=== PATIENT | female | born 1970 | race Caucasian/White ===

== ENCOUNTER 2017-02-09 09:51 | Inpatient (IN) | payer OTHER ==
[2017-02-09 11:35] VITALS: BMI 33.6
--- NOTE | 2017-02-09 12:32 | HP ---
COWS - Scale Resting Pulse: 1= MO 81-100 Sweatin=Flushed/Facial Moisture Restless Observation: 3= Extraneous Movement Pupil Size: 1= Pupils >than Normal Bone or Joint Aches: 2= Severe Diffuse Aches Runny Nose/ Eye Tearin= Runny Nose/Eyes GI Upset > 30mins: 3= Vomiting/Diarrhea Tremor Observation: 2= Slight Tremor Visible Yawning Observation: 1= 1-2x During Session Anxiety or Irritability: 2=Irritable/Anxious Goose Flesh Skin: 0=Smooth Skin COWS Score: 19 Admission ROS S - HPI Chief Complaint: i need help to stop using heroin,marijuana Allergies/Adverse Reactions: Allergies Allergy/AdvReac Type Severity Reaction Status Date / Time No Known Allergies Allergy Verified 02/09/17 12:09 History of Present Illness: this 46 years old female with heroin and marijuana dependence withdrawal symptom ,last detox dependence,[facility] 09/14 several admissions in detox patient was treated with doxycycline 100 mgs po bid seen in [facility] on sat 02/07/17 longest period of sobriety 7 years nicotine dependence bipolar disorder Exam Limitations: No Limitations - Ebola screening Have you traveled outside of the country in the last 21 days: No Have you been sick,other than usual withdrawal symptoms: No - Review of Systems Constitutional: Chills, Loss of Appetite, Malaise, Night Sweats, Changes in sleep, Weakness EENT: reports: Tearing, Nose Congestion Respiratory: reports: No Symptoms reported, Other (asthma) Cardiac: reports: No Symptoms Reported GI: reports: Diarrhea, Nausea, Vomiting, Abdominal cramping : reports: No Symptoms Reported, Other (treated with doxycycline 100 mga po bid for pid at [facility]) Musculoskeletal: reports: Back Pain, Joint Pain, Muscle Pain, Joint Stiffness Integumentary: reports: Dryness Neuro: reports: Headache, Tremors Endocrine: reports: No Symptoms Reported Hematology: reports: No Symptoms Reported Psychiatric: reports: other (bipolar disorder) Patient History - Patient Medical History Hx Anemia: Yes (no med) Hx Asthma: Yes (on albuterol and advair) Hx Chronic Obstructive Pulmonary Disease (COPD): No Hx Cancer: Yes (cervical ca follow up with own sound assistant) Hx Cardiac Disorders: No Hx Congestive Heart Failure: No Hx Hypertension: No Hx Hypercholesterolemia: No Hx Pacemaker: No HX Cerebrovascular Accident: No Hx Seizures: No Hx Dementia: No Hx Diabetes: No Hx Gastrointestinal Disorders: Yes (Hx of GERD) Hx Liver Disease: No Hx Genitourinary Disorders: No Hx Sexually Transmitted Disorders: No Hx Renal Disease (ESRD): No Hx Thyroid Disease: No Hx Human Immunodeficiency Virus (HIV): No (NEGATIVE HX last 2016) Hx Hepatitis C: No Hx Depression: Yes (on medication) Hx Suicide Attempt: No Hx Bipolar Disorder: Yes Hx Schizophrenia: No Other Medical History: no suicidal,no homicidal,treated with antibiotic for pid - Patient Surgical History Past Surgical History: Yes Hx Neurologic Surgery: No Hx Cataract Extraction: No Hx Cardiac Surgery: No Hx Lung Surgery: No Hx Breast Surgery: No Hx Breast Biopsy: No Hx Abdominal Surgery: No Hx Appendectomy: No Hx Cholecystectomy: Yes ( 2009 lap ) Hx Genitourinary Surgery: Yes (2001) Hx Section: No Hx Orthopedic Surgery: No Other Surgical History: Pt had a culposcopy. Anesthesia Reaction: No - PPD History Previous Implant?: Yes Documented Results: Negative w/proof Implanted On Prior [facility] Admission?: Yes Date: 05/12/16 Results: 0 MM PPD to be Administered?: No - Reproductive History Patient is a Female of Child Bearing Age (11 -55 yrs old): Yes Last Menstrual Period: 01/20/17 Patient : No - Smoking Cessation Smoking history: Current every day smoker Have you smoked in the past 12 months: Yes Aproximately how many cigarettes per day: 12 Cigars Per Day: 0 Hx Chewing Tobacco Use: No Initiated information on smoking cessation: Yes 'Breaking Loose' booklet given: 02/09/17 - Substance & Tx. History Hx Alcohol Use: No Hx Substance Use: Yes Substance Use Type: Heroin, Marijuana Hx Substance Use Treatment: Yes ([facility] 09/14) - Substances Abused Heroin Route: Inhalation Frequency: Daily Amount used: 3 BAGS Age of first use: 28 Date of Last Use: 02/09/17 Marijuana/Hashish Route: Smoking Frequency: Daily Amount used: 1/2 BAG Age of first use: 13 Date of Last Use: 02/08/17 SUBOXONE Route: Oral Frequency: 3-6 times per week Amount used: 2- 8/2MG Age of first use: 45 Date of Last Use: 02/08/17 Family Disease History - Family Disease History Family Disease History: Heart Disease: Grandparent, Other: Father ( - alcohol), Mother (arthritis) Admission Physical Exam [facility] - Vital Signs Vital Signs: Vital Signs - 24 hr 02/09/17 11:27 Temperature 96.0 F L Pulse Rate 86 Respiratory 20 Rate Blood Pressure 118/81 - Physical General Appearance: Yes: Moderate Distress, Tremorous, Irritable, Sweating, Anxious HEENTM: Yes: Normal ENT Inspection, Normocephalic, Nasal Congestion Respiratory: Yes: Lungs Clear, Normal Breath Sounds, No Respiratory Distress Neck: Yes: Within Normal Limits Breast: Yes: Breast Exam Deferred Cardiology: Yes: Within Normal Limits, Regular Rhythm, Regular Rate, S1, S2 Abdominal: Yes: Within Normal Limits, Non Tender, Flat, Soft Genitourinary: Yes: Within Normal Limits Back: Yes: Muscle Spasm Musculoskeletal: Yes: Back pain, Joint Stiffness, Muscle Pain Extremities: Yes: Tremors Neurological: Yes: product development chemist II-XII NML intact, Fully Oriented, Alert, Motor Strength 5/5 Integumentary: Yes: Dry Lymphatic: Yes: Within Normal Limits - Diagnostic (1) Asthma Current Visit: No Status: Chronic Qualifiers: Asthma severity: mild intermittent Asthma complication type: uncomplicated Qualified Code(s): J45.20 - Mild intermittent asthma, uncomplicated (2) Cannabis dependence Current Visit: No Status: Chronic (3) GERD (gastroesophageal reflux disease) Current Visit: No Status: Chronic Qualifiers: Esophagitis presence: esophagitis presence not specified Qualified Code(s): K21.9 - Gastro-esophageal reflux disease without esophagitis (4) Nicotine dependence Current Visit: No Status: Chronic Qualifiers: Nicotine product type: cigarettes Substance use status: uncomplicated Qualified Code(s): F17.210 - Nicotine dependence, cigarettes, uncomplicated (5) Opioid dependence with withdrawal Current Visit: No Status: Chronic (6) Bipolar disorder Current Visit: No Status: Suspected (7) History of anemia Current Visit: No Status: Suspected (8) Cervical cancer Current Visit: Yes Status: Acute (9) Arthritis Current Visit: Yes Status: Acute Cleared for Admission [facility] - Detox or Rehab [facility] Level of Care: Medically Managed Detox Regimen/Protocol: Methadone [facility] Breath Alcohol Content Breath Alcohol Content: 0 Urine Pregancy Test - Result Urine Test Results: Negative- NO Line Present Urine Drug Screen - Results Drug Screen Negative: No Urine Drug Screen Results: THC-Marijuana, OPI-Opiates, TCA-Tricyclic Antidepress
[2017-02-09] MEDS ORDERED: guaiFENesin/D-METHORPHAN HB 10 ML UNIT-DOSE CUPS PO PRN (12:57)
[2017-02-09] MEDS ORDERED: P-EPHED 60MG/TRIPROLIDI 2.5MG TABLET PO PRN (12:57)
[2017-02-09] MEDS ORDERED: hydrOXYzine PAMOATE 50 MG CAPSULE (FP) PO PRN (12:57)
[2017-02-09] MEDS ORDERED: MAGNESIUM HYDROX 2400MG/30ML ORAL SUSPENSION 30 ML CUP PO PRN (12:57)
[2017-02-09] MEDS ORDERED: MENTHOL/PHENOL 1 EACH UD MM PRN (12:57)
[2017-02-09] MEDS ORDERED: LOPERAMIDE HCL 2 MG CAPSULE PO PRN (12:57)
[2017-02-09] MEDS ORDERED: MAGNESIUM CITRATE 300 ML BOTTLE PO PRN (12:57)
[2017-02-09] MEDS ORDERED: ACETAMINOPHEN 325 MG TABLET (FP) PO PRN (12:57)
[2017-02-09] MEDS ORDERED: ALBUTEROL SO4 6.7 GM HFA INHALER IH PRN (13:03)
[2017-02-09] MEDS ORDERED: METHADONE HCL 10 MG TABLET (FOR DETOX USE ONLY) PO ONE ×2 (14:00→23:00)
[2017-02-09] MEDS: NICOTINE 21 MG/24 HOURS TOPICAL PATCH TD SCH (14:11)
[2017-02-09] MEDS: diazePAM 5 MG TABLET PO PRN ×2 (14:11→22:25)
[2017-02-09] MEDS: IBUPROFEN 400 MG TABLET (FP) PO PRN (14:11)
[2017-02-09] MEDS: PANTOPRAZOLE 40 MG TABLET (FP) PO SCH (14:13)
--- NOTE | 2017-02-09 15:56 | EKG ---
Test Reason : Blood Pressure : / mmHG Vent. Rate : 075 BPM Atrial Rate : 075 BPM P-R Int : 140 ms QRS Dur : 088 ms QT Int : 400 ms P-R-T Axes : 054 042 027 degrees QTc Int : 446 ms NORMAL SINUS RHYTHM NORMAL ECG NO PREVIOUS ECGS AVAILABLE Confirmed by JOSE ANGEL ELLIOTT MD ([id number]) on 02/09/2017 3:55:43 PM Referred By: Confirmed By:JOSE ANGEL ELLIOTT MD
[2017-02-09 18:07] LABS: URINE APPEARANCE CLEAR; URINE BILIRUBIN NEGATIVE (NEGATIVE); URINE BLOOD NEGATIVE (NEGATIVE); URINE COLOR LTYELLOW; URINE GLUCOSE (UA) NEGATIVE (NEGATIVE); URINE KETONE NEGATIVE (NEGATIVE); URINE NITRITE NEGATIVE (NEGATIVE); URINE PROTEIN NEGATIVE (NEGATIVE); URINE UROBILINOGEN NEGATIVE E.U./dl (0.2-1.0)
[2017-02-09 18:15] LABS: URINE LEUK ESTERASE 2+ (NEGATIVE)
[2017-02-09 18:16] LABS: ALBUMIN 3.4 g/dl (3.4-5.0); ANION GAP 8 (8-16); CALCIUM 9.3 mg/dL (8.5-10.1); CO2 30 mmol/L (21-32); GLUCOSE,RANDOM 127 mg/dL (74-106)
[2017-02-09 18:17] LABS: URINE RBC 3 /hpf (0-3); URINE WBC 25 /hpf (3-5)
[2017-02-09 18:21] LABS: ALK PHOS 143 U/L (45-117); BILIRUBIN,TOTAL 0.3 mg/dL (0.2-1.0); CREATININE 0.8 mg/dL (0.55-1.02); SGOT/AST 16 U/L (15-37); SGPT/ALT 19 U/L (12-78); TOT PROT 7.3 g/dl (6.4-8.2)
[2017-02-09 18:26] LABS: MCH 29.3 pg (25.7-33.7); MCHC 33.8 g/dl (32.0-36.0); MEAN CELL VOLUME 86.6 fl (80-96); MEAN PLT VOLUME 8.7 fl (7.5-11.1); PLATELET COUNT 330 K/MM3 (134-434); RDW 13.6 % (11.6-15.6); WHITE BLOOD COUNT 10.4 K/mm3 (4.0-10.0)
[2017-02-09] MEDS: DOXYCYCLINE HYCLATE 100 MG TABLET PO SCH (19:51)
[2017-02-09] MEDS: MAG HYDROX/AL HYDROX/SIMETH 30 ML UNIT-DOSE CUP PO PRN (19:53)
[2017-02-09] MEDS: BUDESONIDE/FORMETEROL FUMARATE 160/4.5 mcg INHALER IH SCH (22:25)
[2017-02-09] MEDS: THIAMINE HCL 100 MG TABLET (FP) PO SCH (22:25)
[2017-02-09] MEDS: diphenhydrAMINE HCL 50 MG CAPSULE PO PRN (22:25)
[2017-02-10] MEDS: DOXYCYCLINE HYCLATE 100 MG TABLET PO SCH ×2 (05:29→18:15)
[2017-02-10] MEDS: IBUPROFEN 400 MG TABLET (FP) PO PRN ×2 (05:29→22:31)
[2017-02-10] MEDS ORDERED: METHADONE HCL 10 MG TABLET (FOR DETOX USE ONLY) PO ONE (10:00)
--- NOTE | 2017-02-10 10:21 | PN ---
[facility] COWS - Scale Resting Pulse: 1= ID 81-100 Sweatin=Flushed/Facial Moisture Restless Observation: 1= Difficult to Sit Still Pupil Size: 1= Pupils >than Normal Bone or Joint Aches: 2= Severe Diffuse Aches Runny Nose/ Eye Tearin= Nasal Congestion GI Upset > 30mins: 1= Stomach Cramp Tremor Observation of Outstretched Hands: 1= Tremor [place], Not Seen Yawning Observation: 0= None Anxiety or Irritability: 2=Irritable/Anxious Goose Flesh Skin: 0=Smooth Skin COWS Score: 12 S Progress Note (SOAP) Subjective: interrupted sleep, sweats, lbp Objective: 02/10/17 10:18 Vital Signs Temperature 98.2 F 02/10/17 06:07 Pulse Rate 87 02/10/17 06:07 Respiratory Rate 18 02/10/17 06:07 Blood Pressure 128/91 02/10/17 06:07 O2 Sat by Pulse Oximetry (%) Laboratory Tests 02/09/17 02/09/17 02/09/17 13:20 13:20 13:20 WBC 10.4 H D RBC 4.01 Hgb 11.8 Hct 34.8 MCV 86.6 MCHC 33.8 RDW 13.6 Plt Count 330 MPV 8.7 D Sodium 138 Potassium 4.6 Chloride 100 Carbon Dioxide 30 Anion Gap 8 BUN 15 Creatinine 0.8 Creat Clearance w eGFR > 60 Random Glucose 127 H D Calcium 9.3 Total Bilirubin 0.3 D AST 16 D ALT 19 D Alkaline Phosphatase 143 H D Total Protein 7.3 Albumin 3.4 Urine Color Urine Appearance Urine pH Ur Specific [place] Urine Protein Urine Glucose (UA) Urine Ketones Urine Blood Urine Nitrite Urine Bilirubin Urine Urobilinogen Ur Leukocyte Esterase Urine RBC Urine WBC Ur Epithelial Cells Hepatitis C Antibody >11.0 H 02/09/17 15:00 WBC RBC Hgb Hct MCV MCHC RDW Plt Count MPV Sodium Potassium Chloride Carbon Dioxide Anion Gap BUN Creatinine Creat Clearance w eGFR Random Glucose Calcium Total Bilirubin AST ALT Alkaline Phosphatase Total Protein Albumin Urine Color Ltyellow Urine Appearance Clear Urine pH 6.0 Ur Specific [place] 1.015 Urine Protein Negative Urine Glucose (UA) Negative Urine Ketones Negative Urine Blood Negative Urine Nitrite Negative Urine Bilirubin Negative Urine Urobilinogen Negative Ur Leukocyte Esterase 2+ H Urine RBC 3 Urine WBC 25 Ur Epithelial Cells Few Hepatitis C Antibody pt aox3 in nad ambulating 02/10/17 10:19 Assessment: 02/10/17 10:18 withdrawal sx's lbp elevated glucose 02/10/17 10:21 Plan: cont. detox increase fluids flexeril 10mg tid /prn hep c bgm in am x 2 d
[2017-02-10] MEDS: NICOTINE 21 MG/24 HOURS TOPICAL PATCH TD SCH (10:52)
[2017-02-10] MEDS: LIDOCAINE 5% TOPICAL PATCH TP SCH (10:52)
[2017-02-10] MEDS: PANTOPRAZOLE 40 MG TABLET (FP) PO SCH (10:53)
[2017-02-10] MEDS: PRENATAL VITAMINS W/ FOLIC ACID TABLET (FP) PO SCH (10:53)
[2017-02-10] MEDS: diazePAM 5 MG TABLET PO PRN ×3 (10:56→22:32)
[2017-02-10] MEDS: BUDESONIDE/FORMETEROL FUMARATE 160/4.5 mcg INHALER IH SCH ×2 (10:57→23:29)
[2017-02-10] MEDS: MAG HYDROX/AL HYDROX/SIMETH 30 ML UNIT-DOSE CUP PO PRN (20:59)
--- NOTE | 2017-02-10 21:24 | CONSULT ---
[facility] Psychiatric Consult - Data Date of interview: 02/10/17 Admission source: [facility] Identifying data: Another admission to [facility] for this 46 y/o female seeking detox treatment on for heroin,marijuana and cocaine dependence.Patient is single,a mother of six (two sons and four daughters), domiciled,unemployed and deprived of any source of income. Substance Abuse History: - Smoking Cessation. Smoking history: Current every day smoker. Have you smoked in the past 12 months: Yes. Aproximately how many cigarettes per day: 12. Cigars Per Day: 0. Hx Chewing Tobacco Use: No. Initiated information on smoking cessation: Yes. 'Breaking Loose' booklet given : 02/09/17. - Substance & Tx. History. Hx Alcohol Use: No. Hx Substance Use: Yes. Substance Use Type: Heroin, Marijuana. Hx Substance Use Treatment: Yes ( [facility] 09/14). - Substances Abused. Heroin. Route: Inhalation. Frequency: Daily. Amount used: 3 BAGS. Age of first use: 28. Date of Last Use: . Marijuana/Hashish. Route: Smoking. Frequency: Daily. Amount used: 1/ 2 BAG. Age of first use: 13. Date of Last Use: 02/08/17. SUBOXONE. Route : Oral. Frequency: 3-6 times per week. Amount used: 2- 8/2MG. Age of first use: 45. Date of Last Use: 02/08/17. Confirmed by patient. Medical History: Bronchial asthma,GERD,LBP,sciatica and anemia. Psychiatric History: No history of psychiatric hospitalizations.Currently on suboxone maintenance.Ms Tolbert requests seroquel 50 mg po bid (prescribed by primary care doctor).Patient denies history of suicide attempts. Physical/Sexual Abuse/Trauma History: Patient denies. Additional Comment: Urine Drug Screen Results: THC-Marijuana, OPI-Opiates, TCA- Tricyclic Antidepressant.Noted. Mental Status Exam - Mental Status Exam Alert and Oriented to: Time, Place, Person Cognitive Function: Good Patient Appearance: Well Groomed Mood: Hopeful, Euthymic Affect: Appropriate, Normal Range Patient Behavior: Fatigued, Appropriate, Cooperative Speech Pattern: Clear, Appropriate Voice Loudness: Normal Thought Process: Goal Oriented Thought Disorder: Not Present Hallucinations: Denies Suicidal Ideation: Denies Homicidal Ideation: Denies Insight/Judgement: Fair Sleep: Poorly, Difficulty falling asleep Appetite: Good Muscle strength/Tone: Normal Gait/Station: Normal Psychiatric Findings - Problem List ([place] 1, 2,3) (1) Opioid dependence with withdrawal Current Visit: Yes Status: Acute (2) Nicotine dependence Current Visit: Yes Status: Acute Qualifiers: Nicotine product type: cigarettes Substance use status: uncomplicated Qualified Code(s): F17.210 - Nicotine dependence, cigarettes, uncomplicated (3) Cannabis dependence Current Visit: Yes Status: Acute (4) Bipolar disorder Current Visit: Yes Status: Chronic (5) Substance induced mood disorder Current Visit: Yes Status: Acute (6) Arthritis Current Visit: Yes Status: Chronic (7) Asthma Current Visit: Yes Status: Chronic Qualifiers: Asthma severity: mild intermittent Asthma complication type: uncomplicated Qualified Code(s): J45.20 - Mild intermittent asthma, uncomplicated (8) GERD (gastroesophageal reflux disease) Current Visit: Yes Status: Chronic Qualifiers: Esophagitis presence: esophagitis presence not specified Qualified Code(s): K21.9 - Gastro-esophageal reflux disease without esophagitis (9) History of anemia Current Visit: Yes Status: Suspected - Initial Treatment Plan Initial Treatment Plan: Psychoeducation.Detoxification.Seroquel 50 mg po bid.Side effects/benefits discussed with patient.Agreement given.Observation.
[2017-02-10] MEDS: THIAMINE HCL 100 MG TABLET (FP) PO SCH (22:27)
[2017-02-10] MEDS: diphenhydrAMINE HCL 50 MG CAPSULE PO PRN (22:29)
[2017-02-10] MEDS: QUEtiapine FUMARATE 50 MG TABLET PO SCH (22:29)
[2017-02-11] MEDS: DOXYCYCLINE HYCLATE 100 MG TABLET PO SCH ×2 (05:27→17:19)
[2017-02-11] MEDS: IBUPROFEN 400 MG TABLET (FP) PO PRN (05:29)
[2017-02-11] MEDS: diazePAM 5 MG TABLET PO PRN ×4 (05:31→22:32)
[2017-02-11] MEDS ORDERED: METHADONE HCL 5 MG TABLET (FOR DETOX USE ONLY) PO ONE (10:00)
[2017-02-11] MEDS: PRENATAL VITAMINS W/ FOLIC ACID TABLET (FP) PO SCH (10:30)
[2017-02-11] MEDS: PANTOPRAZOLE 40 MG TABLET (FP) PO SCH (10:31)
[2017-02-11] MEDS: QUEtiapine FUMARATE 50 MG TABLET PO SCH ×2 (10:31→22:31)
[2017-02-11] MEDS: BUDESONIDE/FORMETEROL FUMARATE 160/4.5 mcg INHALER IH SCH ×2 (10:31→22:31)
[2017-02-11] MEDS: NICOTINE 21 MG/24 HOURS TOPICAL PATCH TD SCH (10:36)
[2017-02-11] MEDS: LIDOCAINE 5% TOPICAL PATCH TP SCH (10:38)
--- NOTE | 2017-02-11 10:58 | PN ---
[facility] COWS - Scale Resting Pulse: 1= SC 81-100 Sweatin=Flushed/Facial Moisture Restless Observation: 0= Sits Still Pupil Size: 0= Normal to Room Light Bone or Joint Aches: 2= Severe Diffuse Aches Runny Nose/ Eye Tearin= Nasal Congestion GI Upset > 30mins: 0= None Tremor Observation of Outstretched Hands: 2= Slight Tremor Visible Yawning Observation: 2= >3x During Session Anxiety or Irritability: 2=Irritable/Anxious Goose Flesh Skin: 0=Smooth Skin COWS Score: 12 S Progress Note (SOAP) Subjective: back pain uti sweats irritable Objective: 02/11/17 10:57 Vital Signs Temperature 98.6 F 02/11/17 10:10 Pulse Rate 82 02/11/17 10:10 Respiratory Rate 18 02/11/17 10:10 Blood Pressure 117/55 02/11/17 10:10 O2 Sat by Pulse Oximetry (%) Laboratory Tests 02/09/17 02/09/17 02/09/17 13:20 13:20 13:20 WBC 10.4 H D RBC 4.01 Hgb 11.8 Hct 34.8 MCV 86.6 MCHC 33.8 RDW 13.6 Plt Count 330 MPV 8.7 D Sodium 138 Potassium 4.6 Chloride 100 Carbon Dioxide 30 Anion Gap 8 BUN 15 Creatinine 0.8 Creat Clearance w eGFR > 60 POC Glucometer Random Glucose 127 H D Calcium 9.3 Total Bilirubin 0.3 D AST 16 D ALT 19 D Alkaline Phosphatase 143 H D Total Protein 7.3 Albumin 3.4 Urine Color Urine Appearance Urine pH Ur Specific [place] Urine Protein Urine Glucose (UA) Urine Ketones Urine Blood Urine Nitrite Urine Bilirubin Urine Urobilinogen Ur Leukocyte Esterase Urine RBC Urine WBC Ur Epithelial Cells RPR Titer Hepatitis C Antibody >11.0 H 02/09/17 02/09/17 02/11/17 13:20 15:00 06:31 WBC RBC Hgb Hct MCV MCHC RDW Plt Count MPV Sodium Potassium Chloride Carbon Dioxide Anion Gap BUN Creatinine Creat Clearance w eGFR POC Glucometer 140 Random Glucose Calcium Total Bilirubin AST ALT Alkaline Phosphatase Total Protein Albumin Urine Color Ltyellow Urine Appearance Clear Urine pH 6.0 Ur Specific [place] 1.015 Urine Protein Negative Urine Glucose (UA) Negative Urine Ketones Negative Urine Blood Negative Urine Nitrite Negative Urine Bilirubin Negative Urine Urobilinogen Negative Ur Leukocyte Esterase 2+ H Urine RBC 3 Urine WBC 25 Ur Epithelial Cells Few RPR Titer Nonreactive Hepatitis C Antibody awake/alert ambulation no acute distress Assessment: 02/11/17 10:58 withdrawal sx Plan: continue detox increase fluids bractrim ds x 7 days flexiril 10mg prn
[2017-02-11] MEDS: MAG HYDROX/AL HYDROX/SIMETH 30 ML UNIT-DOSE CUP PO PRN (21:39)
[2017-02-11] MEDS: diphenhydrAMINE HCL 50 MG CAPSULE PO PRN (22:30)
[2017-02-11] MEDS: CYCLOBENZAPRINE HCL 10 MG TABLET (FP) PO PRN (22:30)
[2017-02-11] MEDS: THIAMINE HCL 100 MG TABLET (FP) PO SCH (22:32)
[2017-02-12] MEDS: DOXYCYCLINE HYCLATE 100 MG TABLET PO SCH ×2 (06:03→17:40)
[2017-02-12] MEDS: IBUPROFEN 600 MG TABLET (FP) PO PRN (06:05)
[2017-02-12] MEDS: diazePAM 5 MG TABLET PO PRN ×2 (06:05→10:08)
--- NOTE | 2017-02-12 09:07 | DS ---
[facility] Detox Discharge Summary Admission Date: 02/09/17 Discharge Date: 02/12/17 - History Present History: Cannabis Dependence, Cocaine Dependence, Opioid Dependence - Physical Exam Results Vital Signs: Vital Signs Temperature 96.7 F L 02/12/17 07:15 Pulse Rate 77 02/12/17 07:15 Respiratory Rate 18 02/12/17 07:15 Blood Pressure 109/68 02/12/17 07:15 O2 Sat by Pulse Oximetry (%) - Treatment Hospital Course: Detox Protocol Followed, Detoxed Safely, Responded well, Discharged Condition Good - Medication Discharge Medications: Ambulatory Orders Omeprazole [Prilosec] 40 mg PO DAILY 05/10/16 Albuterol Sulfate Inhaler - [Ventolin HFA Inhaler -] 2 puff IH Q4H PRN #1 inhaler 05/15/16 Budesonide/Formeterol Fumarate [SYMBICORT 160/4.5mcg -] 1 puff IH BID #1 inhaler 05/15/16 Quetiapine Fumarate [Seroquel -] 50 mg PO BID #60 tablet 09/28/16 Doxycycline Hyclate 100 mg PO BID 02/09/17 Quetiapine Fumarate [Seroquel -] 50 mg PO BID #60 tablet 02/11/17 - Diagnosis (1) Cannabis dependence Current Visit: Yes Status: Chronic (2) Cervical cancer Current Visit: Yes Status: Chronic (3) Cocaine dependence Current Visit: Yes Status: Chronic Qualifiers: Substance use status: uncomplicated Qualified Code(s): F14.20 - Cocaine dependence, uncomplicated (4) Nicotine dependence Current Visit: Yes Status: Chronic Qualifiers: Nicotine product type: cigarettes Substance use status: uncomplicated Qualified Code(s): F17.210 - Nicotine dependence, cigarettes, uncomplicated (5) Opioid dependence with withdrawal Current Visit: Yes Status: Acute (6) Asthma Current Visit: Yes Status: Chronic Qualifiers: Asthma severity: mild intermittent Asthma complication type: uncomplicated Qualified Code(s): J45.20 - Mild intermittent asthma, uncomplicated - AMA Did Patient Leave Against Medical Advice: No (pt d/c'ed early for court appt. )
[2017-02-12] MEDS ORDERED: METHADONE HCL 5 MG TABLET (FOR DETOX USE ONLY) PO ONE (10:00)
[2017-02-12] MEDS: QUEtiapine FUMARATE 50 MG TABLET PO SCH ×2 (10:06→22:31)
[2017-02-12] MEDS: BUDESONIDE/FORMETEROL FUMARATE 160/4.5 mcg INHALER IH SCH ×2 (10:06→22:30)
[2017-02-12] MEDS: PANTOPRAZOLE 40 MG TABLET (FP) PO SCH (10:06)
[2017-02-12] MEDS: PRENATAL VITAMINS W/ FOLIC ACID TABLET (FP) PO SCH (10:06)
[2017-02-12] MEDS: NICOTINE 21 MG/24 HOURS TOPICAL PATCH TD SCH (10:07)
[2017-02-12] MEDS: LIDOCAINE 5% TOPICAL PATCH TP SCH (10:09)
--- NOTE | 2017-02-12 11:19 | PN ---
[facility] Progress Note (SOAP) Subjective: numbness of hands, sweats, mild nausea Objective: 02/12/17 11:18 Vital Signs Temperature 96.8 F L 02/12/17 10:15 Pulse Rate 71 02/12/17 10:15 Respiratory Rate 18 02/12/17 10:15 Blood Pressure 131/61 02/12/17 10:15 O2 Sat by Pulse Oximetry (%) Laboratory Tests 02/09/17 02/09/17 02/09/17 13:20 13:20 13:20 WBC 10.4 H D RBC 4.01 Hgb 11.8 Hct 34.8 MCV 86.6 MCHC 33.8 RDW 13.6 Plt Count 330 MPV 8.7 D Sodium 138 Potassium 4.6 Chloride 100 Carbon Dioxide 30 Anion Gap 8 BUN 15 Creatinine 0.8 Creat Clearance w eGFR > 60 POC Glucometer Random Glucose 127 H D Calcium 9.3 Total Bilirubin 0.3 D AST 16 D ALT 19 D Alkaline Phosphatase 143 H D Total Protein 7.3 Albumin 3.4 Urine Color Urine Appearance Urine pH Ur Specific [place] Urine Protein Urine Glucose (UA) Urine Ketones Urine Blood Urine Nitrite Urine Bilirubin Urine Urobilinogen Ur Leukocyte Esterase Urine RBC Urine WBC Ur Epithelial Cells RPR Titer Hepatitis C Antibody >11.0 H 02/09/17 02/09/17 02/11/17 13:20 15:00 06:31 WBC RBC Hgb Hct MCV MCHC RDW Plt Count MPV Sodium Potassium Chloride Carbon Dioxide Anion Gap BUN Creatinine Creat Clearance w eGFR POC Glucometer 140 Random Glucose Calcium Total Bilirubin AST ALT Alkaline Phosphatase Total Protein Albumin Urine Color Ltyellow Urine Appearance Clear Urine pH 6.0 Ur Specific [place] 1.015 Urine Protein Negative Urine Glucose (UA) Negative Urine Ketones Negative Urine Blood Negative Urine Nitrite Negative Urine Bilirubin Negative Urine Urobilinogen Negative Ur Leukocyte Esterase 2+ H Urine RBC 3 Urine WBC 25 Ur Epithelial Cells Few RPR Titer Nonreactive Hepatitis C Antibody 02/12/17 06:35 WBC RBC Hgb Hct MCV MCHC RDW Plt Count MPV Sodium Potassium Chloride Carbon Dioxide Anion Gap BUN Creatinine Creat Clearance w eGFR POC Glucometer 97 Random Glucose Calcium Total Bilirubin AST ALT Alkaline Phosphatase Total Protein Albumin Urine Color Urine Appearance Urine pH Ur Specific [place] Urine Protein Urine Glucose (UA) Urine Ketones Urine Blood Urine Nitrite Urine Bilirubin Urine Urobilinogen Ur Leukocyte Esterase Urine RBC Urine WBC Ur Epithelial Cells RPR Titer Hepatitis C Antibody pt aox3 lying in bed in nad Assessment: 02/12/17 11:18 withdrawal ssx;s 02/12/17 11:19 Plan: cont. detox increase fluids
[2017-02-12] MEDS: THIAMINE HCL 100 MG TABLET (FP) PO SCH (22:31)
[2017-02-12] MEDS: diphenhydrAMINE HCL 50 MG CAPSULE PO PRN (22:31)
[2017-02-12] MEDS: CYCLOBENZAPRINE HCL 10 MG TABLET (FP) PO PRN (22:31)
[2017-02-13] MEDS: DOXYCYCLINE HYCLATE 100 MG TABLET PO SCH ×2 (06:07→17:17)
[2017-02-13] MEDS ORDERED: SODIUM CHLORIDE NASAL SPRAY 44 ML BOTTLE NS PRN (08:38)
[2017-02-13] MEDS ORDERED: METHADONE HCL 10 MG TABLET (FOR DETOX USE ONLY) PO ONE (10:00)
[2017-02-13] MEDS: BUDESONIDE/FORMETEROL FUMARATE 160/4.5 mcg INHALER IH SCH ×2 (10:07→22:19)
[2017-02-13] MEDS: PRENATAL VITAMINS W/ FOLIC ACID TABLET (FP) PO SCH (10:08)
[2017-02-13] MEDS: QUEtiapine FUMARATE 50 MG TABLET PO SCH ×2 (10:08→22:21)
[2017-02-13] MEDS: PANTOPRAZOLE 40 MG TABLET (FP) PO SCH (10:08)
[2017-02-13] MEDS: NICOTINE 21 MG/24 HOURS TOPICAL PATCH TD SCH (10:09)
[2017-02-13] MEDS: LIDOCAINE 5% TOPICAL PATCH TP SCH (10:10)
--- NOTE | 2017-02-13 11:29 | PN ---
[facility] Progress Note (SOAP) Subjective: congestion sweats body aches Objective: 02/13/17 11:29 Vital Signs Temperature 97.7 F 02/13/17 10:00 Pulse Rate 108 H 02/13/17 10:00 Respiratory Rate 16 02/13/17 10:00 Blood Pressure 117/61 02/13/17 10:00 O2 Sat by Pulse Oximetry (%) awake/alert ambulating no acute distress Assessment: 02/13/17 11:29 withdrawal sx Plan: continue detox increase fluids d/c in am
[2017-02-13] MEDS: IBUPROFEN 600 MG TABLET (FP) PO PRN (19:18)
[2017-02-13] MEDS: CYCLOBENZAPRINE HCL 10 MG TABLET (FP) PO PRN (22:20)
[2017-02-13] MEDS: diphenhydrAMINE HCL 50 MG CAPSULE PO PRN (22:20)
[2017-02-13] MEDS: THIAMINE HCL 100 MG TABLET (FP) PO SCH (22:21)
[2017-02-14] MEDS: DOXYCYCLINE HYCLATE 100 MG TABLET PO SCH (05:59)
[2017-02-14] MEDS ORDERED: METHADONE HCL 5 MG TABLET (FOR DETOX USE ONLY) PO ONE (06:00)
[2017-02-14 06:49] VITALS: BP 119/60; PULSE 77; TEMP 98
--- NOTE | 2017-02-14 08:35 | PN ---
S Progress Note (SOAP) Subjective: ALERT,NO COMPLAINT Objective: 02/14/17 08:33 Vital Signs Temperature 98 F 02/14/17 06:49 Pulse Rate 77 02/14/17 06:49 Respiratory Rate 18 02/14/17 06:49 Blood Pressure 119/60 02/14/17 06:49 O2 Sat by Pulse Oximetry (%) Assessment: 02/14/17 08:33 DETOX COMPLETED,NO WITHDRAWAL SYMPTOM Plan: DISCHARGE TODAY,FOLLOW UP WITH AFTER CARE PROGRAM ARRANGEMENT
--- NOTE | 2017-02-14 13:54 | DS ---
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 Pertinent Past History: GERD ASTHMA ARTHRITIS CANCAE OF CERVIX HISTORY PID - Physical Exam Results Vital Signs: Vital Signs Temperature 98 F 02/14/17 06:49 Pulse Rate 77 02/14/17 06:49 Respiratory Rate 18 02/14/17 06:49 Blood Pressure 119/60 02/14/17 06:49 O2 Sat by Pulse Oximetry (%) Pertinent Admission Physical Exam Findings: WITHDRAWAL SYMPTOM - Treatment Hospital Course: Detox Protocol Followed, Detoxed Safely, Responded well, Discharged Condition Good Patient has Accepted a Rehab Referral to: [facility] - Medication Discharge Medications: Ambulatory Orders Omeprazole [Prilosec] 40 mg PO DAILY 05/10/16 Albuterol Sulfate Inhaler - [Ventolin HFA Inhaler -] 2 puff IH Q4H PRN #1 inhaler 05/15/16 Quetiapine Fumarate [Seroquel -] 50 mg PO BID #60 tablet 09/28/16 Quetiapine Fumarate [Seroquel -] 50 mg PO BID #60 tablet 02/11/17 Albuterol Sulfate Inhaler - [Ventolin HFA Inhaler -] 2 puff IH Q4H PRN #1 inhaler 02/12/17 Budesonide/Formeterol Fumarate [SYMBICORT 160/4.5mcg -] 1 puff IH BID #1 inhaler 02/12/17 Doxycycline Hyclate 100 mg PO BID #14 02/14/17 Doxycycline Hyclate [Vibratab -] 100 mg PO BID@0600,1800 #14 tablet 02/14/17 Pantoprazole Sodium [Protonix -] 40 mg PO DAILY #30 tbs 02/14/17 - Diagnosis (1) Asthma Status: Chronic Qualifiers: Asthma severity: mild intermittent Asthma complication type: uncomplicated Qualified Code(s): J45.20 - Mild intermittent asthma, uncomplicated (2) Cannabis dependence Status: Chronic (3) GERD (gastroesophageal reflux disease) Status: Chronic Qualifiers: Qualified Code(s): K21.9 - Gastro-esophageal reflux disease without esophagitis (4) Nicotine dependence Status: Chronic Qualifiers: Nicotine product type: cigarettes Substance use status: uncomplicated Qualified Code(s): F17.210 - Nicotine dependence, cigarettes, uncomplicated (5) Opioid dependence with withdrawal Status: Acute (6) Bipolar disorder Status: Chronic (7) History of anemia Status: Suspected (8) Cervical cancer Status: Chronic (9) Arthritis Status: Chronic
== END 2017-02-14 09:20 | disposition home or self-care (01) | DRG 773 ==
LOC: YASAS 09:51 → Y6N 13:27
PROVIDERS: ADMIT Internal Medicine Addiction Medicine; ATTEND Internal Medicine Addiction Medicine
PROC: HZ2ZZZZ Detoxification Services for Substance Abuse Treatment (ICD-10-PCS; principal; 2017-02-14)
DX: F11.23 Opioid dependence with withdrawal (principal); F12.20 Cannabis dependence, uncomplicated; F17.210 Nicotine dependence, cigarettes, uncomplicated; F19.24 Other psychoactive substance dependence with psychoactive substance-induced mood disorder; F31.9 Bipolar disorder, unspecified; J45.20 Mild intermittent asthma, uncomplicated; M12.9 Arthropathy, unspecified; D64.9 Anemia, unspecified; Z85.41 Personal history of malignant neoplasm of cervix uteri
CPT/HCPCS: 36415; 80053; 81003; 81015; 85027; 86593; 87522; 93005; 93010

== ENCOUNTER 2017-04-01 12:50 | Emergency (ER) | payer OTHER ==
[2017-04-01 12:56] VITALS: BP 137/87; PULSE 89; TEMP 98.2; BMI 34.0
--- NOTE | 2017-04-01 13:40 | PDOC ---
History of Present Illness - General Chief Complaint: Pain Stated Complaint: LOW BACK PAIN Time Seen by Provider: 04/01/17 13:00 - History of Present Illness Initial Comments: 04/01/17 15:27 Chief complaint: Low back pain History of present illness: Patient complains of exacerbation of low back pain for several weeks. She claims she has had an MRI that show herniated disks. No record of an MRI is available here at [facility], and no record of treatment for lower back pain is on file. The patient's only contact [facility] for detox/ drug abuse treatment. Review of systems: Patient denies bowel or bladder incontinence or retention. States that the radiates down both legs. However, appears to be ambulating without difficulty Examination including neurological was normal. No leg weakness or sensory deficit Impression: Chronic low back pain Plan: Symptomatic treatment and an orthopedist referral. Patient fully ambulatory and in no apparent pain or other distress upon discharge to follow-up Past History - Past Medical History Allergies/Adverse Reactions: Allergies Allergy/AdvReac Type Severity Reaction Status Date / Time No Known Allergies Allergy Verified 04/01/17 12:51 Home Medications: Ambulatory Orders NK [No Known Home Medication] 04/01/17 Anemia: Yes (no med) Asthma: Yes (on albuterol and advair) Cancer: Yes (cervical ca follow up with own data center consultant) Cardiac Disorders: No CVA: No COPD: No CHF: No Dementia: No Diabetes: No GI Disorders: Yes (Hx of GERD) Disorders: No HTN: No Hypercholesterolemia: No Kidney Stones: No Liver Disease: No Suicide Attempt (Hx): No Seizures: No Thyroid Disease: No - Surgical History Abdominal Surgery: No Appendectomy: No Cardiac Surgery: No Cholecystectomy: Yes ( 2009 ) Lung Surgery: No Neurologic Surgery: No Orthopedic Surgery: No - Reproductive History PID: No - Psycho/Social/Smoking Cessation Hx Anxiety: No Suicidal Ideation: No Smoking Status: Yes Smoking History: Current every day smoker Have you smoked in the past 12 months: Yes Number of Cigarettes Smoked Daily: 10 Cigars Per Day: 0 Information on smoking cessation initiated: Yes 'Breaking Loose' booklet given: 04/01/17 Hx Alcohol Use: Yes Drug/Substance Use Hx: Yes Substance Use Type: Heroin, Marijuana Hx Substance Use Treatment: Yes ([facility] 09/14) Trauma Specific PMHX - Complaint Specific PMHX Arthritis: Yes *Physical Exam - Vital Signs Last Vital Signs Temp Pulse Resp BP Pulse Ox 98.2 F 89 16 137/87 100 04/01/17 12:50 04/01/17 12:50 04/01/17 12:50 04/01/17 12:50 04/01/17 12:50 *DC/Admit/Observation/Transfer Diagnosis at time of Disposition: Low back pain Qualifiers: Chronicity: acute Back pain laterality: bilateral Sciatica presence: with sciatica Sciatica laterality: bilateral sciatica Qualified Code(s): M54.42 - Lumbago with sciatica, left side - Discharge Dispostion Disposition: HOME Condition at time of disposition: Stable Admit: No - Referrals Referrals: Reji Davis MD [Staff Physician] - - Patient Instructions Printed Discharge Instructions: DI for Low Back Pain
[2017-04-01] MEDS ORDERED: KETOROLAC TROMETHAMINE 60 MG/2 ML VIAL ONE (14:05)
[2017-04-01] MEDS ORDERED: hydrOXYzine PAMOATE 25 MG CAPSULE (FP) PO ONE (14:05)
[2017-04-01] MEDS: KETOROLAC TROMETHAMINE 60 MG/2 ML VIAL IM ONE (14:10)
[2017-04-01] MEDS: hydrOXYzine PAMOATE 50 MG CAPSULE (FP) PO ONE (14:11)
== END 2017-04-01 14:21 | disposition home or self-care (01) ==
LOC: FER 12:50
DX: M54.42 Lumbago with sciatica, left side (principal); G89.29 Other chronic pain; F17.210 Nicotine dependence, cigarettes, uncomplicated; J45.909 Unspecified asthma, uncomplicated; Z85.41 Personal history of malignant neoplasm of cervix uteri; K21.9 Gastro-esophageal reflux disease without esophagitis
CPT/HCPCS: 99282-25

== ENCOUNTER 2018-10-06 08:11 | Inpatient (IN) | payer OTHER ==
[2018-10-06 09:10] VITALS: BMI 27.7
--- NOTE | 2018-10-06 09:14 | HP ---
COWS - Scale Resting Pulse: 2= [place] 101-120 Sweatin= Chills/Flushing Restless Observation: 1= Difficult to Sit Still Pupil Size: 1= Pupils >than Normal Bone or Joint Aches: 2= Severe Diffuse Aches Runny Nose/ Eye Tearin= Runny Nose/Eyes GI Upset > 30mins: 2= Nausea/Diarrhea Tremor Observation: 2= Slight Tremor Visible Yawning Observation: 1= 1-2x During Session Anxiety or Irritability: 2=Irritable/Anxious Goose Flesh Skin: 0=Smooth Skin COWS Score: 16 CIWA Score - Admission Criteria OASAS Guidelines: Admission for Medically Managed Detox: Requires at least one of the followin. CIWA greater than 12 2. Seizures within the past 24 hours 3. Delirium tremens within the past 24 hours 4. Hallucinations within the past 24 hours 5. Acute intervention needed for co occurring medical disorder 6. Acute intervention needed for co occurring psychiatric disorder 7. Severe withdrawal that cannot be handled at a lower level of care (continued vomiting, continued diarrhea, abnormal vital signs) requiring intravenous medication and/or fluids 8. Admission ROS [facility] - HPI Chief Complaint: i need help to stop using heroin and cocaine Allergies/Adverse Reactions: Allergies Allergy/AdvReac Type Severity Reaction Status Date / Time No Known Allergies Allergy Verified 10/06/18 09:39 History of Present Illness: this 48 years old female with heroin and cocaine dependence,seeking detox , withdrawal symptom,last detox 09/23/16 to 09/28/16 asthma nicotine dependence multiple admissions in detox but relapsing arthritis ,low back pain,herniated disc, gerd insomnia longest period of sobriety 2 years Exam Limitations: No Limitations - Ebola screening Have you traveled outside of the country in the last 21 days: No Have you had contact with anyone from an Ebola affected area: No Do you have a fever: No - Review of Systems Constitutional: Chills, Loss of Appetite, Night Sweats, Changes in sleep, Weakness, Unintentional Wgt. Loss EENT: reports: Tearing, Nose Congestion Respiratory: reports: No Symptoms reported, Other (asthma) Cardiac: reports: Palpitations GI: reports: Nausea, Poor Appetite, Abdominal cramping : reports: No Symptoms Reported Musculoskeletal: reports: Back Pain, Joint Pain, Muscle Pain, Joint Stiffness Integumentary: reports: Dryness Neuro: reports: Headache, Tremors Endocrine: reports: No Symptoms Reported Hematology: reports: No Symptoms Reported Psychiatric: reports: No Sypmtoms Reported, Judgement Intact, Mood/Affect Appropiate, Orientated x3 (insomnia) Patient History - Patient Medical History Hx Anemia: Yes (no med) Hx Asthma: Yes (on albuterol and advair) Hx Chronic Obstructive Pulmonary Disease (COPD): No Hx Cancer: Yes (cervical ca follow up with own pin pusher) Hx Cardiac Disorders: No Hx Congestive Heart Failure: No Hx Hypertension: No Hx Hypercholesterolemia: No Hx Pacemaker: No HX Cerebrovascular Accident: No Hx Seizures: No Hx Dementia: No Hx Diabetes: No Hx Gastrointestinal Disorders: Yes (GERD) Hx Liver Disease: No Hx Genitourinary Disorders: No Hx Sexually Transmitted Disorders: No Hx Renal Disease (ESRD): No Hx Thyroid Disease: No Hx Human Immunodeficiency Virus (HIV): No (NEGATIVE HX last 08/17) Hx Hepatitis C: No Hx Depression: Yes (on medication) Hx Suicide Attempt: No Hx Bipolar Disorder: Yes Hx Schizophrenia: No Other Medical History: insomnia,no suicidal,no homicidal - Patient Surgical History Past Surgical History: Yes Hx Neurologic Surgery: No Hx Cataract Extraction: No Hx Cardiac Surgery: No Hx Lung Surgery: No Hx Breast Surgery: No Hx Breast Biopsy: No Hx Abdominal Surgery: No Hx Appendectomy: No Hx Cholecystectomy: Yes (lap in 2006) Hx Genitourinary Surgery: Yes (carcinoma in situ s/p conization in 2013) Hx Section: No Hx Orthopedic Surgery: No Other Surgical History: Pt had a culposcopy. Anesthesia Reaction: No - PPD History Previous Implant?: Yes Implanted On Prior [facility] Admission?: Yes Date: 05/12/16 Results: 0 MM PPD to be Administered?: Yes - Reproductive History Patient is a Female of Child Bearing Age (11 -55 yrs old): Yes Last Menstrual Period: 09/21/18 Patient : No - Smoking Cessation Smoking history: Current every day smoker Have you smoked in the past 12 months: Yes Aproximately how many cigarettes per day: 12 Cigars Per Day: 0 Hx Chewing Tobacco Use: No Initiated information on smoking cessation: Yes 'Breaking Loose' booklet given: 10/06/18 - Substance & Tx. History Hx Alcohol Use: No Hx Substance Use: Yes Substance Use Type: Cocaine, Heroin Hx Substance Use Treatment: Yes ([facility] 09/23/16 to 09/28/16) - Substances Abused Heroin Route: Inhalation Frequency: Daily Amount used: 10 bags Age of first use: 30 Date of Last Use: 10/05/18 Cocaine Route: Smoking Frequency: Daily Amount used: 200$ Age of first use: 26 Date of Last Use: 10/05/18 Marijuana/Hashish Route: Smoking Frequency: 1-2 times per week Amount used: 20$ Age of first use: 13 Date of Last Use: 10/03/18 Family Disease History - Family Disease History Family Disease History: Heart Disease: Grandparent, Other: Father ( - alcohol), Mother (arthritis) Admission Physical Exam [facility] - Vital Signs Vital Signs: Vital Signs Temperature 97.3 F L 10/06/18 09:08 Pulse Rate 105 H 10/06/18 09:08 Respiratory Rate 20 10/06/18 09:08 Blood Pressure 148/76 10/06/18 09:08 O2 Sat by Pulse Oximetry (%) - Physical General Appearance: Yes: Moderate Distress, Tremorous, Irritable, Sweating, Anxious HEENTM: Yes: Normal ENT Inspection, ANGEL, Pharynx Normal Respiratory: Yes: Lungs Clear, Normal Breath Sounds, No Respiratory Distress Neck: Yes: Within Normal Limits, Supple, Trachea in good position Breast: Yes: Breast Exam Deferred Cardiology: Yes: Tachycardia Abdominal: Yes: Within Normal Limits, Normal Bowel Sounds, Non Tender, Soft Genitourinary: Yes: Within Normal Limits Back: Yes: Muscle Spasm Musculoskeletal: Yes: full range of Motion, Back pain, Muscle Pain Extremities: Yes: Within Normal Limits, Normal Range of Motion, Tremors Neurological: Yes: vpk teacher II-XII NML intact, Fully Oriented, Alert, Motor Strength 5/5 Integumentary: Yes: Dry Lymphatic: Yes: Within Normal Limits - Diagnostic (1) Opioid dependence with withdrawal Current Visit: No Status: Acute (2) Cocaine dependence Current Visit: No Status: Chronic Qualifiers: Substance use status: uncomplicated Qualified Code(s): F14.20 - Cocaine dependence, uncomplicated (3) Low back pain Current Visit: No Status: Acute Qualifiers: Chronicity: acute Back pain laterality: bilateral Sciatica presence: with sciatica Sciatica laterality: bilateral sciatica Qualified Code(s): M54.42 - Lumbago with sciatica, left side; M54.41 - Lumbago with sciatica, right side (4) Sciatica Current Visit: No Status: Acute (5) Arthritis Current Visit: No Status: Chronic (6) Asthma Current Visit: No Status: Chronic Qualifiers: Asthma severity: mild intermittent Asthma complication type: uncomplicated (7) Bipolar disorder Current Visit: No Status: Chronic (8) Cannabis dependence Current Visit: No Status: Chronic (9) GERD (gastroesophageal reflux disease) Current Visit: No Status: Chronic Qualifiers: Esophagitis presence: esophagitis presence not specified Qualified Code(s) : K21.9 - Gastro-esophageal reflux disease without esophagitis (10) Nicotine dependence Current Visit: No Status: Chronic Qualifiers: Nicotine product type: cigarettes Substance use status: uncomplicated Qualified Code(s): F17.210 - Nicotine dependence, cigarettes, uncomplicated (11) History of anemia Current Visit: No Status: Suspected Cleared for Admission [facility] - Detox or Rehab S Level of Care: Medically Managed Detox Regimen/Protocol: Methadone [facility] Breath Alcohol Content Breath Alcohol Content: 0
[2018-10-06] MEDS ORDERED: ACETAMINOPHEN 325 MG TABLET (FP) PO PRN (09:33)
[2018-10-06] MEDS ORDERED: NICOTINE POLACRILEX 2 MG GUM BUC PRN (09:33)
[2018-10-06] MEDS ORDERED: MAG HYDROX/AL HYDROX/SIMETH 30 ML UNIT-DOSE CUP PO PRN (09:33)
[2018-10-06] MEDS ORDERED: P-EPHED 60MG/TRIPROLIDI 2.5MG TABLET PO PRN (09:33)
[2018-10-06] MEDS ORDERED: MAGNESIUM HYDROX 2400MG/30ML ORAL SUSPENSION 30 ML CUP PO PRN (09:33)
[2018-10-06] MEDS ORDERED: MAGNESIUM CITRATE 300 ML BOTTLE PO PRN (09:33)
[2018-10-06] MEDS ORDERED: LOPERAMIDE HCL 2 MG CAPSULE PO PRN (09:33)
[2018-10-06] MEDS ORDERED: MENTHOL/PHENOL 1 EACH UD MM PRN (09:33)
[2018-10-06] MEDS ORDERED: guaiFENesin/D-METHORPHAN HB 10 ML UNIT-DOSE CUPS PO PRN (09:33)
[2018-10-06] MEDS ORDERED: ALBUTEROL SO4 8 GM HFA INHALER IH PRN (10:39)
[2018-10-06] MEDS ORDERED: METHADONE HCL 10 MG TABLET (FOR DETOX USE ONLY) PO ONE ×2 (12:00→23:00)
[2018-10-06] MEDS: cloNIDine HCL 0.1 MG TABLET PO SCH ×2 (12:14→22:23)
[2018-10-06] MEDS: PANTOPRAZOLE 40 MG TABLET (FP) PO SCH (12:15)
[2018-10-06] MEDS: PRENATAL VITAMINS W/ FOLIC ACID TABLET (FP) PO SCH (12:17)
[2018-10-06] MEDS: NICOTINE 21 MG/24 HOURS TOPICAL PATCH TD SCH (12:17)
[2018-10-06] MEDS: diazePAM 5 MG TABLET PO PRN ×3 (12:33→22:22)
--- NOTE | 2018-10-06 13:55 | EKG ---
Test Reason : Blood Pressure : / mmHG Vent. Rate : 086 BPM Atrial Rate : 086 BPM P-R Int : 142 ms QRS Dur : 086 ms QT Int : 394 ms P-R-T Axes : 070 045 040 degrees QTc Int : 471 ms NORMAL SINUS RHYTHM MINIMAL VOLTAGE CRITERIA FOR LVH, MAY BE NORMAL VARIANT SEPTAL INFARCT , AGE UNDETERMINED ABNORMAL ECG WHEN COMPARED WITH ECG OF 09-FEB-2017 13:19, NO SIGNIFICANT CHANGE WAS FOUND Confirmed by EULOGIO STEVENS MD ([id number]) on 10/06/2018 1:55:05 PM Referred By: Confirmed By:EULOGIO STEVENS MD
[2018-10-06 15:31] LABS: URINE APPEARANCE CLOUDY; URINE BILIRUBIN NEGATIVE (<2.0 mg/dL); URINE COLOR AMBER; URINE GLUCOSE (UA) NEGATIVE (NEGATIVE); URINE KETONE TRACE (NEGATIVE); URINE LEUK ESTERASE 3+ (NEGATIVE); URINE NITRITE NEGATIVE (NEGATIVE); URINE PROTEIN NEGATIVE (NEGATIVE)
[2018-10-06 16:01] LABS: CALCIUM OXALATE CRYSTALS RARE /hpf (NONE SEEN); EPI CELLS MODERATE /HPF (FEW); URINE MUCUS MODERATE
[2018-10-06] MEDS: IBUPROFEN 400 MG TABLET (FP) PO PRN (18:23)
[2018-10-06] MEDS: CYCLOBENZAPRINE HCL 10 MG TABLET (FP) PO PRN ×2 (18:23→22:23)
[2018-10-06] MEDS ORDERED: MELATONIN 5 MG TABLETS PO PRN (22:00)
[2018-10-06] MEDS: THIAMINE HCL 100 MG TABLET (FP) PO SCH (22:22)
[2018-10-07] MEDS: IBUPROFEN 400 MG TABLET (FP) PO PRN ×2 (06:16→22:21)
[2018-10-07] MEDS: diazePAM 5 MG TABLET PO PRN ×4 (06:16→22:19)
[2018-10-07] MEDS: CYCLOBENZAPRINE HCL 10 MG TABLET (FP) PO PRN ×2 (06:16→22:20)
--- NOTE | 2018-10-07 07:43 | CONSULT ---
[facility] Psychiatric Consult - Data Date of interview: 10/07/18 Admission source: [facility] Identifying data: This is a 48 years old female, single mother of six, living alone, unemployued, on DSS support, with no psychiatric hospitalization history , as per computer with history of Bipolar Disorder, OCD, with heroin, cocaine, cannabis and nicotine dependence, is reporting withjdrawal symptoms and seeking detox. Substance Abuse History: Smoking history: Current every day smoker. Have you smoked in the past 12 months: Yes. Aproximately how many cigarettes per day: 12. Cigars Per Day: 0. Hx Chewing Tobacco Use: No. Initiated information on smoking cessation: Yes. 'Breaking Loose' booklet given: 10/06/18. - Substance & Tx. History. Hx Alcohol Use: No. Hx Substance Use: Yes. Substance Use Type : Cocaine, Heroin. Hx Substance Use Treatment: Yes ([facility] 09/23/16 to 09/28/16) . - Substances Abused. Heroin. Route: Inhalation. Frequency: Daily. Amount used: 10 bags. Age of first use: 30. Date of Last Use: 10/05/18. Cocaine. Route: Smoking. Frequency: Daily. Amount used: 200$. Age of first use: 26. Date of Last Use: 10/05/18. Marijuana/Hashish. Route: Smoking. Frequency: 1-2 times per week. Amount used: 20$. Age of first use: 13. Date of Last Use: 10/03/18 Medical History: LBP, Asthma, Arthritis, Cervical Cancer history, GERD, aNEMIA HISTORY, Psychiatric History: Patient reports history of depression and anxiety, denies suicidal and homicidal history, denies psychiatric hospitalization history, reports taking priorm to admission: Seroquel 50mg poqd, 100mg po qhs. As per computer patient carries B[place]ol[place] Disorder and OCD,. Patient minimizing his past psychiatric history Physical/Sexual Abuse/Trauma History: Denies Additional Comment: Sroquel 25mg poqhs. Seroquel 50mg po qhs Mental Status Exam - Mental Status Exam Alert and Oriented to: Person Cognitive Function: Fair Patient Appearance: Unkempt Mood: Sad Affect: Flat Patient Behavior: Sedated Speech Pattern: Delayed Voice Loudness: Mildly Soft/Quiet Thought Process: Circumstantial Thought Disorder: Being Controlled Hallucinations: Denies Suicidal Ideation: Denies Homicidal Ideation: Denies Insight/Judgement: Fair Sleep: Difficulty falling asleep Appetite: Weight loss Muscle strength/Tone: Mild Hypotonicity Gait/Station: Shuffling Additional Comments: Sroquel 25mg poqhs. Seroquel 50mg po qhs Psychiatric Findings - Problem List ([place] 1, 2,3) (1) Low back pain Current Visit: No Status: Acute Qualifiers: Chronicity: acute Back pain laterality: bilateral Sciatica presence: with sciatica Sciatica laterality: bilateral sciatica Qualified Code(s): M54.42 - Lumbago with sciatica, left side; M54.41 - Lumbago with sciatica, right side (2) Opioid dependence with withdrawal Current Visit: No Status: Acute (3) Sciatica Current Visit: No Status: Acute (4) Substance induced mood disorder Current Visit: No Status: Acute (5) Arthritis Current Visit: No Status: Chronic (6) Asthma Current Visit: No Status: Chronic Qualifiers: Asthma severity: mild intermittent Asthma complication type: uncomplicated (7) Cannabis dependence Current Visit: No Status: Chronic (8) Cervical cancer Current Visit: No Status: Chronic (9) Cocaine dependence Current Visit: No Status: Chronic Qualifiers: Substance use status: uncomplicated Qualified Code(s): F14.20 - Cocaine dependence, uncomplicated (10) GERD (gastroesophageal reflux disease) Current Visit: No Status: Chronic Qualifiers: Esophagitis presence: esophagitis presence not specified Qualified Code(s) : K21.9 - Gastro-esophageal reflux disease without esophagitis (11) Nicotine dependence Current Visit: No Status: Chronic Qualifiers: Nicotine product type: cigarettes Substance use status: uncomplicated Qualified Code(s): F17.210 - Nicotine dependence, cigarettes, uncomplicated (12) Substance or medication-induced sleep disorder, insomnia type Current Visit: No Status: Chronic (13) History of anemia Current Visit: No Status: Suspected - Initial Treatment Plan Initial Treatment Plan: Sroquel 25mg poqhs. Seroquel 50mg po qhs
[2018-10-07] MEDS ORDERED: METHADONE HCL 10 MG TABLET (FOR DETOX USE ONLY) PO ONE (10:00)
[2018-10-07 10:45] LABS: HEMATOCRIT 37.8 % (32.4-45.2); HEMOGLOBIN 12.4 GM/dL (10.7-15.3); MCH 29.3 pg (25.7-33.7); MCHC 32.9 g/dl (32.0-36.0); MEAN CELL VOLUME 88.9 fl (80-96); MEAN PLT VOLUME 9.5 fl (7.5-11.1); PLATELET COUNT 361 K/MM3 (134-434); RBC 4.25 M/mm3 (3.60-5.2); RDW 13.7 % (11.6-15.6); WHITE BLOOD COUNT 12.7 K/mm3 (4.0-10.0)
[2018-10-07 10:51] LABS: ALBUMIN 3.9 g/dl (3.4-5.0); ALK PHOS 125 U/L (45-117); ANION GAP 6 MMOL/L (8-16); BILIRUBIN,TOTAL 0.3 mg/dL (0.2-1); BLOOD UREA NITROGEN 17 mg/dL (7-18); CALCIUM 9.5 mg/dL (8.5-10.1); CHLORIDE 100 mmol/L (98-107); CO2 33 mmol/L (21-32); CREATININE 0.8 mg/dL (0.55-1.3); GLUCOSE,RANDOM 105 mg/dL (74-106); POTASSIUM 4.6 mmol/L (3.5-5.1); SGOT/AST 13 U/L (15-37); SGPT/ALT 13 U/L (13-61); SODIUM 138 mmol/L (136-145); TOT PROT 7.7 g/dl (6.4-8.2)
[2018-10-07] MEDS: PRENATAL VITAMINS W/ FOLIC ACID TABLET (FP) PO SCH (11:02)
[2018-10-07] MEDS: QUEtiapine FUMARATE 50 MG TABLET PO SCH (11:03)
[2018-10-07] MEDS: cloNIDine HCL 0.1 MG TABLET PO SCH ×2 (11:03→22:20)
[2018-10-07] MEDS: PANTOPRAZOLE 40 MG TABLET (FP) PO SCH (11:03)
--- NOTE | 2018-10-07 15:41 | PN ---
S COWS - Scale Resting Pulse: 0= [place] 80 or Below Sweatin= Chills/Flushing Restless Observation: 1= Difficult to Sit Still Pupil Size: 1= Pupils >than Normal Bone or Joint Aches: 2= Severe Diffuse Aches Runny Nose/ Eye Tearin= Nasal Congestion GI Upset > 30mins: 2= Nausea/Diarrhea Tremor Observation of Outstretched Hands: 2= Slight Tremor Visible Yawning Observation: 2= >3x During Session Anxiety or Irritability: 2=Irritable/Anxious Goose Flesh Skin: 0=Smooth Skin COWS Score: 14 S Progress Note (SOAP) Subjective: joints pain body ache back pain muscle cramp trouble sleep at night low energy Objective: 10/07/18 15:40 Vital Signs Temperature 98.6 F 10/07/18 13:51 Pulse Rate 101 H 10/07/18 13:51 Respiratory Rate 18 10/07/18 13:51 Blood Pressure 122/74 10/07/18 13:51 O2 Sat by Pulse Oximetry (%) Laboratory Last Values WBC 12.7 K/mm3 (4.0-10.0) H 10/07/18 06:00 RBC 4.25 M/mm3 (3.60-5.2) 10/07/18 06:00 Hgb 12.4 GM/dL (10.7-15.3) 10/07/18 06:00 Hct 37.8 % (32.4-45.2) 10/07/18 06:00 MCV 88.9 fl (80-96) 10/07/18 06:00 MCH 29.3 pg (25.7-33.7) 10/07/18 06:00 MCHC 32.9 g/dl (32.0-36.0) 10/07/18 06:00 RDW 13.7 % (11.6-15.6) 10/07/18 06:00 Plt Count 361 K/MM3 (134-434) 10/07/18 06:00 MPV 9.5 fl (7.5-11.1) 10/07/18 06:00 Sodium 138 mmol/L (136-145) 10/07/18 06:00 Potassium 4.6 mmol/L (3.5-5.1) 10/07/18 06:00 Chloride 100 mmol/L (98-107) 10/07/18 06:00 Carbon Dioxide 33 mmol/L (21-32) H 10/07/18 06:00 Anion Gap 6 MMOL/L (8-16) L 10/07/18 06:00 BUN 17 mg/dL (7-18) 10/07/18 06:00 Creatinine 0.8 mg/dL (0.55-1.3) 10/07/18 06:00 Creat Clearance w eGFR > 60 (>60) 10/07/18 06:00 Random Glucose 105 mg/dL (74-106) 10/07/18 06:00 Calcium 9.5 mg/dL (8.5-10.1) 10/07/18 06:00 Total Bilirubin 0.3 mg/dL (0.2-1) 10/07/18 06:00 AST 13 U/L (15-37) L 10/07/18 06:00 ALT 13 U/L (13-61) 10/07/18 06:00 Alkaline Phosphatase 125 U/L (45-117) H 10/07/18 06:00 Total Protein 7.7 g/dl (6.4-8.2) 10/07/18 06:00 Albumin 3.9 g/dl (3.4-5.0) 10/07/18 06:00 Urine Color [place] 10/06/18 12:14 Urine Appearance Cloudy 10/06/18 12:14 Urine pH 5.0 (5.0-8.0) 10/06/18 12:14 Ur Specific [place] 1.023 (1.010-1.035) 10/06/18 12:14 Urine Protein Negative (NEGATIVE) 10/06/18 12:14 Urine Glucose (UA) Negative (NEGATIVE) 10/06/18 12:14 Urine Ketones Trace (NEGATIVE) H 10/06/18 12:14 Urine Blood Negative (NEGATIVE) 10/06/18 12:14 Urine Nitrite Negative (NEGATIVE) 10/06/18 12:14 Urine Bilirubin Negative (<2.0 mg/dL) 10/06/18 12:14 Urine Urobilinogen 2.0 mg/dL (0.2-1.0) H 10/06/18 12:14 Ur Leukocyte Esterase 3+ (NEGATIVE) H 10/06/18 12:14 Urine WBC (Auto) 89 /hpf (3-5) 10/06/18 12:14 Urine RBC (Auto) 14 /hpf (0-3) 10/06/18 12:14 Ur Epithelial Cells Moderate /HPF (FEW) 10/06/18 12:14 Calcium Oxalate Crystal Rare /hpf (NONE SEEN) 10/06/18 12:14 Urine Mucus Moderate 10/06/18 12:14 lab noted uti Assessment: 10/07/18 15:41 withdrawal sx uti Plan: continue detox bactrim ds
[2018-10-07] MEDS: THIAMINE HCL 100 MG TABLET (FP) PO SCH (22:19)
[2018-10-07] MEDS: SULFAMETHOXAZOLE/TRIMETHOPRIM 800MG/160MG D.S. TABLET PO SCH (22:20)
[2018-10-07] MEDS: QUEtiapine FUMARATE 100 MG TABLET (FP) PO SCH (22:20)
[2018-10-08] MEDS: CYCLOBENZAPRINE HCL 10 MG TABLET (FP) PO PRN ×2 (07:01→15:32)
[2018-10-08] MEDS: IBUPROFEN 400 MG TABLET (FP) PO PRN (07:01)
[2018-10-08] MEDS ORDERED: METHADONE HCL 5 MG TABLET (FOR DETOX USE ONLY) PO ONE (10:00)
[2018-10-08] MEDS: cloNIDine HCL 0.1 MG TABLET PO SCH ×2 (10:35→22:49)
[2018-10-08] MEDS: SULFAMETHOXAZOLE/TRIMETHOPRIM 800MG/160MG D.S. TABLET PO SCH ×2 (10:35→22:49)
[2018-10-08] MEDS: PRENATAL VITAMINS W/ FOLIC ACID TABLET (FP) PO SCH (10:35)
[2018-10-08] MEDS: QUEtiapine FUMARATE 50 MG TABLET PO SCH (10:36)
[2018-10-08] MEDS: PANTOPRAZOLE 40 MG TABLET (FP) PO SCH (10:36)
[2018-10-08] MEDS: LIDOCAINE 5% TOPICAL PATCH TP SCH (10:36)
[2018-10-08] MEDS: diazePAM 5 MG TABLET PO PRN ×3 (10:37→22:49)
[2018-10-08] MEDS: NICOTINE 21 MG/24 HOURS TOPICAL PATCH TD SCH (10:40)
--- NOTE | 2018-10-08 12:27 | PN ---
[facility] COWS - Scale Resting Pulse: 1= [place] 81-100 Sweatin=Flushed/Facial Moisture Restless Observation: 1= Difficult to Sit Still Pupil Size: 0= Normal to Room Light Bone or Joint Aches: 1= Mild Discomfort Runny Nose/ Eye Tearin= Nasal Congestion GI Upset > 30mins: 0= None Tremor Observation of Outstretched Hands: 2= Slight Tremor Visible Yawning Observation: 1= 1-2x During Session Anxiety or Irritability: 2=Irritable/Anxious Goose Flesh Skin: 0=Smooth Skin COWS Score: 11 S Progress Note (SOAP) Subjective: irritable agitation sweats interrupted sleep anxiety uti Objective: 10/08/18 12:26 Vital Signs Temperature 98.1 F 10/08/18 10:05 Pulse Rate 82 10/08/18 10:05 Respiratory Rate 18 10/08/18 10:05 Blood Pressure 114/62 10/08/18 10:05 O2 Sat by Pulse Oximetry (%) Laboratory Tests 10/06/18 10/07/18 10/07/18 12:14 06:00 06:00 WBC 12.7 H RBC 4.25 Hgb 12.4 Hct 37.8 MCV 88.9 MCH 29.3 MCHC 32.9 RDW 13.7 Plt Count 361 MPV 9.5 Sodium 138 Potassium 4.6 Chloride 100 Carbon Dioxide 33 H Anion Gap 6 L BUN 17 Creatinine 0.8 Creat Clearance w eGFR > 60 Random Glucose 105 Calcium 9.5 Total Bilirubin 0.3 AST 13 L ALT 13 Alkaline Phosphatase 125 H Total Protein 7.7 Albumin 3.9 Urine Color Elizabeth Urine Appearance Cloudy Urine pH 5.0 Ur Specific [place] 1.023 Urine Protein Negative Urine Glucose (UA) Negative Urine Ketones Trace H Urine Blood Negative Urine Nitrite Negative Urine Bilirubin Negative Urine Urobilinogen 2.0 H Ur Leukocyte Esterase 3+ H Urine WBC (Auto) 89 Urine RBC (Auto) 14 Ur Epithelial Cells Moderate Calcium Oxalate Crystal Rare Urine Mucus Moderate RPR Titer 10/07/18 06:00 WBC RBC Hgb Hct MCV MCH MCHC RDW Plt Count MPV Sodium Potassium Chloride Carbon Dioxide Anion Gap BUN Creatinine Creat Clearance w eGFR Random Glucose Calcium Total Bilirubin AST ALT Alkaline Phosphatase Total Protein Albumin Urine Color Urine Appearance Urine pH Ur Specific [place] Urine Protein Urine Glucose (UA) Urine Ketones Urine Blood Urine Nitrite Urine Bilirubin Urine Urobilinogen Ur Leukocyte Esterase Urine WBC (Auto) Urine RBC (Auto) Ur Epithelial Cells Calcium Oxalate Crystal Urine Mucus RPR Titer Nonreactive pt is currently receiving ABX for her UTI aaox3 ambulating no acute distress Assessment: 10/08/18 12:26 withdrawal sx Plan: continue detox increase fluids
[2018-10-08] MEDS: IBUPROFEN 600 MG TABLET (FP) PO PRN (15:32)
[2018-10-08] MEDS: QUEtiapine FUMARATE 100 MG TABLET (FP) PO SCH (22:49)
[2018-10-08] MEDS: THIAMINE HCL 100 MG TABLET (FP) PO SCH (22:49)
[2018-10-08] MEDS: LIDOCAINE PATCH REMOVAL MC SCH (22:51)
[2018-10-09] MEDS: CYCLOBENZAPRINE HCL 10 MG TABLET (FP) PO PRN ×2 (06:54→22:26)
[2018-10-09] MEDS: IBUPROFEN 600 MG TABLET (FP) PO PRN ×3 (06:55→22:26)
[2018-10-09] MEDS ORDERED: METHADONE HCL 5 MG TABLET (FOR DETOX USE ONLY) PO ONE (10:00)
[2018-10-09] MEDS: QUEtiapine FUMARATE 50 MG TABLET PO SCH (10:33)
[2018-10-09] MEDS: SULFAMETHOXAZOLE/TRIMETHOPRIM 800MG/160MG D.S. TABLET PO SCH ×2 (10:33→22:26)
[2018-10-09] MEDS: PRENATAL VITAMINS W/ FOLIC ACID TABLET (FP) PO SCH (10:33)
[2018-10-09] MEDS: PANTOPRAZOLE 40 MG TABLET (FP) PO SCH (10:33)
[2018-10-09] MEDS: cloNIDine HCL 0.1 MG TABLET PO SCH ×2 (10:33→22:26)
[2018-10-09] MEDS: NICOTINE 21 MG/24 HOURS TOPICAL PATCH TD SCH (10:34)
[2018-10-09] MEDS: LIDOCAINE 5% TOPICAL PATCH TP SCH (10:34)
[2018-10-09] MEDS: GABAPENTIN 300 MG CAPSULE (FP) PO SCH ×2 (10:34→22:26)
--- NOTE | 2018-10-09 18:12 | PN ---
[facility] Progress Note Note: PATIENT CONTINUES WITH DETOX REGIMEN. C/O SCIATICA AND LOW BACK PAIN. Laboratory Tests 10/06/18 10/07/18 10/07/18 12:14 06:00 06:00 WBC 12.7 H RBC 4.25 Hgb 12.4 Hct 37.8 MCV 88.9 MCH 29.3 MCHC 32.9 RDW 13.7 Plt Count 361 MPV 9.5 Sodium 138 Potassium 4.6 Chloride 100 Carbon Dioxide 33 H Anion Gap 6 L BUN 17 Creatinine 0.8 Creat Clearance w eGFR > 60 Random Glucose 105 Calcium 9.5 Total Bilirubin 0.3 AST 13 L ALT 13 Alkaline Phosphatase 125 H Total Protein 7.7 Albumin 3.9 Urine Color Elizabeth Urine Appearance Cloudy Urine pH 5.0 Ur Specific [place] 1.023 Urine Protein Negative Urine Glucose (UA) Negative Urine Ketones Trace H Urine Blood Negative Urine Nitrite Negative Urine Bilirubin Negative Urine Urobilinogen 2.0 H Ur Leukocyte Esterase 3+ H Urine WBC (Auto) 89 Urine RBC (Auto) 14 Ur Epithelial Cells Moderate Calcium Oxalate Crystal Rare Urine Mucus Moderate RPR Titer 10/07/18 06:00 WBC RBC Hgb Hct MCV MCH MCHC RDW Plt Count MPV Sodium Potassium Chloride Carbon Dioxide Anion Gap BUN Creatinine Creat Clearance w eGFR Random Glucose Calcium Total Bilirubin AST ALT Alkaline Phosphatase Total Protein Albumin Urine Color Urine Appearance Urine pH Ur Specific [place] Urine Protein Urine Glucose (UA) Urine Ketones Urine Blood Urine Nitrite Urine Bilirubin Urine Urobilinogen Ur Leukocyte Esterase Urine WBC (Auto) Urine RBC (Auto) Ur Epithelial Cells Calcium Oxalate Crystal Urine Mucus RPR Titer Nonreactive PE: ALERT AND ORIENTED X 3 SKIN WARM AND DRY EXT + SCIATIC PAIN TO RIGHT HIP AND LEG AMB GUARDED A/P: WITHDRAWAL SX SCIATIC RIGHT LEG PAIN CONTINUE DETOX ENCOURAGE ORAL FLUIDS ADD GABAPENTIN 300MG BID (PATIENT EXTERNAL HX SHOWS ORDER FOR GABAPENTIN) CONTINUE TO MONITOR CLINICALLY
[2018-10-09] MEDS: THIAMINE HCL 100 MG TABLET (FP) PO SCH (22:25)
[2018-10-09] MEDS: QUEtiapine FUMARATE 100 MG TABLET (FP) PO SCH (22:26)
[2018-10-09] MEDS: LIDOCAINE PATCH REMOVAL MC SCH (22:49)
[2018-10-10] MEDS: IBUPROFEN 600 MG TABLET (FP) PO PRN ×2 (06:43→17:45)
[2018-10-10] MEDS: hydrOXYzine PAMOATE 50 MG CAPSULE (FP) PO PRN ×4 (06:43→22:10)
[2018-10-10] MEDS ORDERED: METHADONE HCL 10 MG TABLET (FOR DETOX USE ONLY) PO ONE (10:00)
[2018-10-10] MEDS: cloNIDine HCL 0.1 MG TABLET PO SCH ×2 (10:37→22:11)
[2018-10-10] MEDS: QUEtiapine FUMARATE 50 MG TABLET PO SCH (10:37)
[2018-10-10] MEDS: PANTOPRAZOLE 40 MG TABLET (FP) PO SCH (10:37)
[2018-10-10] MEDS: SULFAMETHOXAZOLE/TRIMETHOPRIM 800MG/160MG D.S. TABLET PO SCH ×2 (10:37→22:12)
[2018-10-10] MEDS: GABAPENTIN 300 MG CAPSULE (FP) PO SCH ×2 (10:37→22:11)
[2018-10-10] MEDS: PRENATAL VITAMINS W/ FOLIC ACID TABLET (FP) PO SCH (10:37)
[2018-10-10] MEDS: LIDOCAINE 5% TOPICAL PATCH TP SCH (10:39)
[2018-10-10] MEDS: NICOTINE 21 MG/24 HOURS TOPICAL PATCH TD SCH (10:40)
[2018-10-10] MEDS ORDERED: BENZOCAINE 28 GM HEMORRHOIDAL OINTMENT PR PRN (11:23)
--- NOTE | 2018-10-10 15:48 | PN ---
[facility] Progress Note (SOAP) Subjective: feeling better look forward to go to rehab [facility] no body ache no tremor less sweat sleep better at night discuss aftercare with staff Objective: 10/10/18 15:44 Vital Signs Temperature 97.7 F 10/10/18 14:24 Pulse Rate 74 10/10/18 14:24 Respiratory Rate 20 10/10/18 14:24 Blood Pressure 149/89 10/10/18 14:24 O2 Sat by Pulse Oximetry (%) Laboratory Last Values WBC 12.7 K/mm3 (4.0-10.0) H 10/07/18 06:00 RBC 4.25 M/mm3 (3.60-5.2) 10/07/18 06:00 Hgb 12.4 GM/dL (10.7-15.3) 10/07/18 06:00 Hct 37.8 % (32.4-45.2) 10/07/18 06:00 MCV 88.9 fl (80-96) 10/07/18 06:00 MCH 29.3 pg (25.7-33.7) 10/07/18 06:00 MCHC 32.9 g/dl (32.0-36.0) 10/07/18 06:00 RDW 13.7 % (11.6-15.6) 10/07/18 06:00 Plt Count 361 K/MM3 (134-434) 10/07/18 06:00 MPV 9.5 fl (7.5-11.1) 10/07/18 06:00 Sodium 138 mmol/L (136-145) 10/07/18 06:00 Potassium 4.6 mmol/L (3.5-5.1) 10/07/18 06:00 Chloride 100 mmol/L (98-107) 10/07/18 06:00 Carbon Dioxide 33 mmol/L (21-32) H 10/07/18 06:00 Anion Gap 6 MMOL/L (8-16) L 10/07/18 06:00 BUN 17 mg/dL (7-18) 10/07/18 06:00 Creatinine 0.8 mg/dL (0.55-1.3) 10/07/18 06:00 Creat Clearance w eGFR > 60 (>60) 10/07/18 06:00 Random Glucose 105 mg/dL (74-106) 10/07/18 06:00 Calcium 9.5 mg/dL (8.5-10.1) 10/07/18 06:00 Total Bilirubin 0.3 mg/dL (0.2-1) 10/07/18 06:00 AST 13 U/L (15-37) L 10/07/18 06:00 ALT 13 U/L (13-61) 10/07/18 06:00 Alkaline Phosphatase 125 U/L (45-117) H 10/07/18 06:00 Total Protein 7.7 g/dl (6.4-8.2) 10/07/18 06:00 Albumin 3.9 g/dl (3.4-5.0) 10/07/18 06:00 Urine Color [place] 10/06/18 12:14 Urine Appearance Cloudy 10/06/18 12:14 Urine pH 5.0 (5.0-8.0) 10/06/18 12:14 Ur Specific [place] 1.023 (1.010-1.035) 10/06/18 12:14 Urine Protein Negative (NEGATIVE) 10/06/18 12:14 Urine Glucose (UA) Negative (NEGATIVE) 10/06/18 12:14 Urine Ketones Trace (NEGATIVE) H 10/06/18 12:14 Urine Blood Negative (NEGATIVE) 10/06/18 12:14 Urine Nitrite Negative (NEGATIVE) 10/06/18 12:14 Urine Bilirubin Negative (<2.0 mg/dL) 10/06/18 12:14 Urine Urobilinogen 2.0 mg/dL (0.2-1.0) H 10/06/18 12:14 Ur Leukocyte Esterase 3+ (NEGATIVE) H 10/06/18 12:14 Urine WBC (Auto) 89 /hpf (3-5) 10/06/18 12:14 Urine RBC (Auto) 14 /hpf (0-3) 10/06/18 12:14 Ur Epithelial Cells Moderate /HPF (FEW) 10/06/18 12:14 Calcium Oxalate Crystal Rare /hpf (NONE SEEN) 10/06/18 12:14 Urine Mucus Moderate 10/06/18 12:14 RPR Titer Nonreactive (NONREACTIVE) 10/07/18 06:00 lab noted 10/10/18 15:48 Assessment: 11/11/18 15:49 mild withdrawal sx Plan: medically supervised detox
[2018-10-10] MEDS: CYCLOBENZAPRINE HCL 10 MG TABLET (FP) PO PRN ×2 (17:44→22:11)
[2018-10-10] MEDS: THIAMINE HCL 100 MG TABLET (FP) PO SCH (22:10)
[2018-10-10] MEDS: QUEtiapine FUMARATE 100 MG TABLET (FP) PO SCH (22:11)
[2018-10-10] MEDS: LIDOCAINE PATCH REMOVAL MC SCH (22:13)
[2018-10-11] MEDS ORDERED: METHADONE HCL 5 MG TABLET (FOR DETOX USE ONLY) PO ONE (06:00)
[2018-10-11] MEDS: CYCLOBENZAPRINE HCL 10 MG TABLET (FP) PO PRN (07:12)
[2018-10-11] MEDS: hydrOXYzine PAMOATE 50 MG CAPSULE (FP) PO PRN (07:13)
[2018-10-11] MEDS: IBUPROFEN 600 MG TABLET (FP) PO PRN (07:14)
--- NOTE | 2018-10-11 08:48 | DS ---
[facility] Detox Discharge Summary Admission Date: 10/06/18 Discharge Date: 10/11/18 - History Present History: Cannabis Dependence, Cocaine Dependence, Opioid Dependence - Physical Exam Results Vital Signs: Vital Signs Temperature 97.2 F L 10/11/18 07:43 Pulse Rate 77 10/11/18 07:43 Respiratory Rate 18 10/11/18 07:43 Blood Pressure 122/66 10/11/18 07:43 O2 Sat by Pulse Oximetry (%) - Treatment Hospital Course: Detox Protocol Followed, Detoxed Safely, Responded well, Discharged Condition Good, Rehab Referral Accepted - Medication Discharge Medications: Ambulatory Orders Omeprazole 40 mg PO DAILY 02/27/17 Quetiapine Fumarate [Seroquel -] 50 mg PO DAILY #30 tablet 10/07/18 Quetiapine Fumarate [Seroquel] 100 mg PO HS #30 tablet 10/07/18 Albuterol Sulfate Inhaler - [Ventolin HFA Inhaler -] 2 inh PO Q4H PRN #1 inhaler 10/10/18 Sulfamethoxazole/Trimethoprim [Bactrim DS -] 1 each PO BID #10 tablet 10/10/18 cloNIDine HCL [Catapres -] 0.1 mg PO BID #14 tablet 10/10/18 - AMA Did Patient Leave Against Medical Advice: No ([facility] )
[2018-10-11 09:55] VITALS: TEMP 97.9
[2018-10-11 10:23] LABS: URINE APPEARANCE TURBID; URINE BILIRUBIN NEGATIVE (<2.0 mg/dL); URINE COLOR YELLOW; URINE GLUCOSE (UA) NEGATIVE (NEGATIVE); URINE KETONE NEGATIVE (NEGATIVE); URINE LEUK ESTERASE 2+ (NEGATIVE); URINE NITRITE NEGATIVE (NEGATIVE); URINE PROTEIN NEGATIVE (NEGATIVE); URINE UROBILINOGEN NEGATIVE mg/dL (0.2-1.0)
[2018-10-11 10:25] LABS: EPI CELLS MANY /HPF (FEW); URINE BACTERIA RARE /hpf (NONE SEEN); URINE HYALINE CAST 4 /lpf
[2018-10-11] MEDS: cloNIDine HCL 0.1 MG TABLET PO SCH (10:37)
[2018-10-11] MEDS: PRENATAL VITAMINS W/ FOLIC ACID TABLET (FP) PO SCH (10:37)
[2018-10-11] MEDS: SULFAMETHOXAZOLE/TRIMETHOPRIM 800MG/160MG D.S. TABLET PO SCH (10:38)
[2018-10-11] MEDS: QUEtiapine FUMARATE 50 MG TABLET PO SCH (10:38)
[2018-10-11] MEDS: NICOTINE 21 MG/24 HOURS TOPICAL PATCH TD SCH (10:38)
[2018-10-11] MEDS: PANTOPRAZOLE 40 MG TABLET (FP) PO SCH (10:38)
[2018-10-11] MEDS: LIDOCAINE 5% TOPICAL PATCH TP SCH (10:38)
[2018-10-11 13:11] VITALS: BP 107/57; PULSE 85
[2018-10-11] MEDS: GABAPENTIN 300 MG CAPSULE (FP) PO SCH (13:19)
== END 2018-10-11 13:21 | disposition home or self-care (01) | DRG 773 ==
LOC: YASAS 08:11 → Y6N 11:02
PROC: HZ2ZZZZ Detoxification Services for Substance Abuse Treatment (ICD-10-PCS; principal; 2018-10-06)
DX: F11.23 Opioid dependence with withdrawal (principal); F14.20 Cocaine dependence, uncomplicated; F12.20 Cannabis dependence, uncomplicated; F17.200 Nicotine dependence, unspecified, uncomplicated; F19.282 Other psychoactive substance dependence with psychoactive substance-induced sleep disorder; F19.24 Other psychoactive substance dependence with psychoactive substance-induced mood disorder; F31.9 Bipolar disorder, unspecified; J45.20 Mild intermittent asthma, uncomplicated; K21.9 Gastro-esophageal reflux disease without esophagitis; M54.41 Lumbago with sciatica, right side; M54.42 Lumbago with sciatica, left side; M12.9 Arthropathy, unspecified; Z85.41 Personal history of malignant neoplasm of cervix uteri; Z86.2 Personal history of diseases of the blood and blood-forming organs and certain disorders involving the immune mechanism
CPT/HCPCS: 36415; 80053; 81003; 81015; 85027; 86593; 93005; 93010; J0735

== ENCOUNTER 2018-10-13 10:23 | Inpatient (IN) | payer OTHER ==
[2018-10-13 11:27] VITALS: BMI 30.1
--- NOTE | 2018-10-13 11:33 | HP ---
[facility] Rehab Assess/Revision - Admission History Admitted to Rehab from: [facility] Date of Admission to Rehab: 10/13/18 - Vital signs Vital Signs: Vital Signs Period Temp Pulse Resp BP Sys/Mccracken Pulse Ox Last 24 Hr 96.4 F 79 18 102/67 - Findings Detox History & Physical reviewed: Yes Concur with findings: Yes Comments/Additional Findings: this 48 years old female with history of heroin, alcohol,cocaine and marijuana dependence,completed detox at [facility] from 10/06/18 to 10/11/18. also had low back pain,heniated disc,asthma,bipolar disorder,gerd, nicotine dependence,seeking rehab,as protocol Inpatient Rehab Admission - Initial Determination Are CD services needed?: Yes Free of communicable disease: Yes Not in need of hospitalization: Yes - Rehab Admission Criteria Previous failed treatment: Yes Poor recovery environment: Yes Comorbidities: Yes Lacks judgement: No Patient is meeting Inpatient Rehab admission criteria:: Yes
[2018-10-13] MEDS ORDERED: NICOTINE POLACRILEX 2 MG GUM BUC PRN (11:35)
[2018-10-13] MEDS ORDERED: P-EPHED 60MG/TRIPROLIDI 2.5MG TABLET PO PRN (11:35)
[2018-10-13] MEDS ORDERED: MENTHOL/PHENOL 1 EACH UD MM PRN (11:35)
[2018-10-13] MEDS ORDERED: guaiFENesin/D-METHORPHAN HB 10 ML UNIT-DOSE CUPS PO PRN (11:35)
[2018-10-13] MEDS ORDERED: LOPERAMIDE HCL 2 MG CAPSULE PO PRN (11:35)
[2018-10-13] MEDS ORDERED: ACETAMINOPHEN 325 MG TABLET (FP) PO PRN (11:35)
[2018-10-13] MEDS ORDERED: MAGNESIUM CITRATE 300 ML BOTTLE PO PRN (11:35)
[2018-10-13] MEDS ORDERED: MAGNESIUM HYDROX 2400MG/30ML ORAL SUSPENSION 30 ML CUP PO PRN (11:35)
[2018-10-13] MEDS ORDERED: ALBUTEROL SO4 8 GM HFA INHALER IH PRN (11:50)
[2018-10-13] MEDS: NICOTINE 21 MG/24 HOURS TOPICAL PATCH TD SCH (13:00)
[2018-10-13] MEDS: PANTOPRAZOLE 40 MG TABLET (FP) PO SCH (13:00)
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
[2018-10-13] MEDS: LIDOCAINE 5% TOPICAL PATCH TP SCH (14:33)
[2018-10-13] MEDS: SERTRALINE HCL 50 MG TABLET (FP) PO SCH (15:35)
[2018-10-13] MEDS: IBUPROFEN 400 MG TABLET (FP) PO PRN (15:37)
[2018-10-13] MEDS: THIAMINE HCL 100 MG TABLET (FP) PO SCH (20:59)
[2018-10-13] MEDS: cloNIDine HCL 0.1 MG TABLET PO SCH (21:00)
[2018-10-13] MEDS: SULFAMETHOXAZOLE/TRIMETHOPRIM 800MG/160MG D.S. TABLET PO SCH (21:00)
[2018-10-13] MEDS: QUEtiapine FUMARATE 100 MG TABLET (FP) PO SCH (21:00)
[2018-10-13] MEDS: LIDOCAINE PATCH REMOVAL MC SCH (21:02)
[2018-10-13] MEDS ORDERED: MELATONIN 5 MG TABLETS PO PRN (22:00)
[2018-10-14] MEDS: IBUPROFEN 400 MG TABLET (FP) PO PRN (06:18)
[2018-10-14] MEDS: LIDOCAINE 5% TOPICAL PATCH TP SCH (09:35)
[2018-10-14] MEDS: PANTOPRAZOLE 40 MG TABLET (FP) PO SCH (09:35)
[2018-10-14] MEDS: SULFAMETHOXAZOLE/TRIMETHOPRIM 800MG/160MG D.S. TABLET PO SCH ×2 (09:35→21:35)
[2018-10-14] MEDS: NICOTINE 21 MG/24 HOURS TOPICAL PATCH TD SCH (09:38)
[2018-10-14] MEDS: QUEtiapine FUMARATE 50 MG TABLET PO SCH (09:38)
[2018-10-14] MEDS: cloNIDine HCL 0.1 MG TABLET PO SCH ×2 (09:38→21:35)
[2018-10-14] MEDS: PRENATAL VITAMINS W/ FOLIC ACID TABLET (FP) PO SCH (09:39)
[2018-10-14] MEDS: SERTRALINE HCL 50 MG TABLET (FP) PO SCH (09:39)
[2018-10-14] MEDS: CYCLOBENZAPRINE HCL 10 MG TABLET (FP) PO PRN (15:59)
--- NOTE | 2018-10-14 16:55 | PN ---
[facility] Progress Note Note: Pt is requesting Suboxone. Pt states she is having opioid withdrawal Sx: stomach pains, whole body aches, diarrhea...Pt just finished opioid detox here. Pt states she has used Suboxone in the past, and will be getting Suboxone from [facility] program. Will prescribe suboxone 8mg/2mg qd, starting now and qd.
[2018-10-14] MEDS: BUPRENORPHINE/NALOXONE 8 MG/2 MG FILM PACKET SL SCH (17:07)
[2018-10-14] MEDS: THIAMINE HCL 100 MG TABLET (FP) PO SCH (21:35)
[2018-10-14] MEDS: QUEtiapine FUMARATE 100 MG TABLET (FP) PO SCH (21:35)
[2018-10-14] MEDS: hydrOXYzine PAMOATE 50 MG CAPSULE (FP) PO PRN (21:35)
[2018-10-14] MEDS: LIDOCAINE PATCH REMOVAL MC SCH (21:36)
[2018-10-15] MEDS: MAG HYDROX/AL HYDROX/SIMETH 30 ML UNIT-DOSE CUP PO PRN (03:29)
[2018-10-15] MEDS: SERTRALINE HCL 50 MG TABLET (FP) PO SCH (10:10)
[2018-10-15] MEDS: cloNIDine HCL 0.1 MG TABLET PO SCH ×2 (10:10→21:41)
[2018-10-15] MEDS: BUPRENORPHINE/NALOXONE 8 MG/2 MG FILM PACKET SL SCH (10:10)
[2018-10-15] MEDS: PANTOPRAZOLE 40 MG TABLET (FP) PO SCH (10:10)
[2018-10-15] MEDS: PRENATAL VITAMINS W/ FOLIC ACID TABLET (FP) PO SCH (10:10)
[2018-10-15] MEDS: LIDOCAINE 5% TOPICAL PATCH TP SCH (10:10)
[2018-10-15] MEDS: NICOTINE 21 MG/24 HOURS TOPICAL PATCH TD SCH (10:10)
[2018-10-15] MEDS: QUEtiapine FUMARATE 50 MG TABLET PO SCH (10:10)
[2018-10-15] MEDS: SULFAMETHOXAZOLE/TRIMETHOPRIM 800MG/160MG D.S. TABLET PO SCH ×2 (10:10→21:41)
[2018-10-15] MEDS: QUEtiapine FUMARATE 100 MG TABLET (FP) PO SCH (21:41)
[2018-10-15] MEDS: CYCLOBENZAPRINE HCL 10 MG TABLET (FP) PO PRN (21:41)
[2018-10-15] MEDS: THIAMINE HCL 100 MG TABLET (FP) PO SCH (21:41)
[2018-10-15] MEDS: LIDOCAINE PATCH REMOVAL MC SCH (21:42)
[2018-10-16] MEDS: CYCLOBENZAPRINE HCL 10 MG TABLET (FP) PO PRN (06:06)
[2018-10-16] MEDS: IBUPROFEN 400 MG TABLET (FP) PO PRN (06:06)
[2018-10-16] MEDS: PRENATAL VITAMINS W/ FOLIC ACID TABLET (FP) PO SCH (09:46)
[2018-10-16] MEDS: cloNIDine HCL 0.1 MG TABLET PO SCH ×2 (09:46→21:39)
[2018-10-16] MEDS: QUEtiapine FUMARATE 50 MG TABLET PO SCH (09:46)
[2018-10-16] MEDS: LIDOCAINE 5% TOPICAL PATCH TP SCH (09:46)
[2018-10-16] MEDS: BUPRENORPHINE/NALOXONE 8 MG/2 MG FILM PACKET SL SCH (09:46)
[2018-10-16] MEDS: SULFAMETHOXAZOLE/TRIMETHOPRIM 800MG/160MG D.S. TABLET PO SCH ×2 (09:46→21:39)
[2018-10-16] MEDS: NICOTINE 21 MG/24 HOURS TOPICAL PATCH TD SCH (09:46)
[2018-10-16] MEDS: PANTOPRAZOLE 40 MG TABLET (FP) PO SCH (09:46)
[2018-10-16] MEDS: SERTRALINE HCL 50 MG TABLET (FP) PO SCH (09:46)
[2018-10-16] MEDS: THIAMINE HCL 100 MG TABLET (FP) PO SCH (21:39)
[2018-10-16] MEDS: QUEtiapine FUMARATE 100 MG TABLET (FP) PO SCH (21:39)
[2018-10-16] MEDS: LIDOCAINE PATCH REMOVAL MC SCH (21:40)
[2018-10-16] MEDS: MAG HYDROX/AL HYDROX/SIMETH 30 ML UNIT-DOSE CUP PO PRN (21:42)
[2018-10-17] MEDS: CYCLOBENZAPRINE HCL 10 MG TABLET (FP) PO PRN (06:07)
[2018-10-17] MEDS: IBUPROFEN 400 MG TABLET (FP) PO PRN ×2 (06:07→18:59)
[2018-10-17] MEDS: SULFAMETHOXAZOLE/TRIMETHOPRIM 800MG/160MG D.S. TABLET PO SCH ×2 (10:18→21:37)
[2018-10-17] MEDS: PRENATAL VITAMINS W/ FOLIC ACID TABLET (FP) PO SCH (10:18)
[2018-10-17] MEDS: PANTOPRAZOLE 40 MG TABLET (FP) PO SCH (10:18)
[2018-10-17] MEDS: BUPRENORPHINE/NALOXONE 8 MG/2 MG FILM PACKET SL SCH (10:18)
[2018-10-17] MEDS: NICOTINE 21 MG/24 HOURS TOPICAL PATCH TD SCH (10:18)
[2018-10-17] MEDS: QUEtiapine FUMARATE 50 MG TABLET PO SCH (10:18)
[2018-10-17] MEDS: cloNIDine HCL 0.1 MG TABLET PO SCH ×2 (10:18→21:37)
[2018-10-17] MEDS: LIDOCAINE 5% TOPICAL PATCH TP SCH (10:18)
[2018-10-17] MEDS: SERTRALINE HCL 50 MG TABLET (FP) PO SCH (10:18)
[2018-10-17] MEDS: THIAMINE HCL 100 MG TABLET (FP) PO SCH (21:37)
[2018-10-17] MEDS: LIDOCAINE PATCH REMOVAL MC SCH (21:37)
[2018-10-17] MEDS: QUEtiapine FUMARATE 100 MG TABLET (FP) PO SCH (21:37)
[2018-10-18 07:09] VITALS: TEMP 98.1
[2018-10-18] MEDS: LIDOCAINE 5% TOPICAL PATCH TP SCH (10:28)
[2018-10-18] MEDS: BUPRENORPHINE/NALOXONE 8 MG/2 MG FILM PACKET SL SCH (10:29)
[2018-10-18] MEDS: NICOTINE 21 MG/24 HOURS TOPICAL PATCH TD SCH (10:29)
[2018-10-18] MEDS: PRENATAL VITAMINS W/ FOLIC ACID TABLET (FP) PO SCH (10:29)
[2018-10-18] MEDS: QUEtiapine FUMARATE 50 MG TABLET PO SCH (10:30)
[2018-10-18] MEDS: SERTRALINE HCL 50 MG TABLET (FP) PO SCH (10:30)
[2018-10-18] MEDS: cloNIDine HCL 0.1 MG TABLET PO SCH ×2 (10:30→21:19)
[2018-10-18] MEDS: PANTOPRAZOLE 40 MG TABLET (FP) PO SCH (10:30)
[2018-10-18] MEDS: SULFAMETHOXAZOLE/TRIMETHOPRIM 800MG/160MG D.S. TABLET PO SCH ×2 (10:30→21:20)
[2018-10-18] MEDS: hydrOXYzine PAMOATE 50 MG CAPSULE (FP) PO PRN ×2 (10:31→21:22)
[2018-10-18] MEDS ORDERED: COLLOIDAL OATMEAL 1 BAR EACH TP PRN (10:59)
[2018-10-18] MEDS: CYCLOBENZAPRINE HCL 10 MG TABLET (FP) PO PRN (21:19)
[2018-10-18] MEDS: QUEtiapine FUMARATE 100 MG TABLET (FP) PO SCH (21:19)
[2018-10-18] MEDS: THIAMINE HCL 100 MG TABLET (FP) PO SCH (21:19)
[2018-10-18] MEDS: LIDOCAINE PATCH REMOVAL MC SCH (21:20)
[2018-10-19] MEDS: CYCLOBENZAPRINE HCL 10 MG TABLET (FP) PO PRN ×2 (06:11→21:22)
[2018-10-19] MEDS: IBUPROFEN 400 MG TABLET (FP) PO PRN (06:11)
[2018-10-19] MEDS: cloNIDine HCL 0.1 MG TABLET PO SCH ×2 (10:30→21:22)
[2018-10-19] MEDS: LIDOCAINE 5% TOPICAL PATCH TP SCH (10:30)
[2018-10-19] MEDS: NICOTINE 21 MG/24 HOURS TOPICAL PATCH TD SCH (10:30)
[2018-10-19] MEDS: SERTRALINE HCL 50 MG TABLET (FP) PO SCH (10:31)
[2018-10-19] MEDS: PANTOPRAZOLE 40 MG TABLET (FP) PO SCH (10:31)
[2018-10-19] MEDS: BUPRENORPHINE/NALOXONE 8 MG/2 MG FILM PACKET SL SCH (10:31)
[2018-10-19] MEDS: QUEtiapine FUMARATE 50 MG TABLET PO SCH (10:31)
[2018-10-19] MEDS: PRENATAL VITAMINS W/ FOLIC ACID TABLET (FP) PO SCH (10:31)
[2018-10-19] MEDS: hydrOXYzine PAMOATE 50 MG CAPSULE (FP) PO PRN ×2 (10:32→21:22)
[2018-10-19] MEDS: QUEtiapine FUMARATE 100 MG TABLET (FP) PO SCH (21:22)
[2018-10-19] MEDS: THIAMINE HCL 100 MG TABLET (FP) PO SCH (21:22)
[2018-10-19] MEDS: LIDOCAINE PATCH REMOVAL MC SCH (21:23)
[2018-10-20] MEDS: CYCLOBENZAPRINE HCL 10 MG TABLET (FP) PO PRN (06:18)
[2018-10-20] MEDS: IBUPROFEN 400 MG TABLET (FP) PO PRN (06:18)
--- NOTE | 2018-10-20 09:13 | PN ---
[facility] Progress Note Note: Pt requesting an increase in Suboxone dose from 8mg to 12mg/day. Pt is going to have f/u at [facility] at discharge. Suboxone 12mg ordered.
[2018-10-20] MEDS ORDERED: BUPRENORPHINE HCL/NALOXONE 12 MG-3 MG SL FILM PACKET SL SCH (10:00)
[2018-10-20 10:06] VITALS: BP 122/69; PULSE 87
[2018-10-20] MEDS: NICOTINE 21 MG/24 HOURS TOPICAL PATCH TD SCH (10:31)
[2018-10-20] MEDS: PRENATAL VITAMINS W/ FOLIC ACID TABLET (FP) PO SCH (10:32)
[2018-10-20] MEDS: PANTOPRAZOLE 40 MG TABLET (FP) PO SCH (10:32)
[2018-10-20] MEDS: LIDOCAINE 5% TOPICAL PATCH TP SCH (10:32)
[2018-10-20] MEDS: SERTRALINE HCL 50 MG TABLET (FP) PO SCH (10:33)
[2018-10-20] MEDS: QUEtiapine FUMARATE 50 MG TABLET PO SCH (10:33)
[2018-10-20] MEDS: cloNIDine HCL 0.1 MG TABLET PO SCH (10:33)
--- NOTE | 2018-10-20 21:15 | PN ---
S Progress Note Note: Psychiatry Attending's on-call note (delayed) : Informed, earlier, of patient's decision to leave the program. Boilermaker'S Assistant sent instructions to patient to wait for interview. Ms Tolbert was reported as unwilling to wait for the psychiatrist. Patient left unit without disclosing her reason (s) for terminating treatment. Ignored instructions to wait for psychiatrist. Refer to nursing notes for details.
== END 2018-10-20 18:38 | disposition left against medical advice (07) | DRG 770 ==
LOC: YASAS 10:23 → Y3E 11:34
PROVIDERS: ADMIT Psychiatry & Neurology Psychiatry; ATTEND Psychiatry & Neurology Psychiatry
PROC: HZ42ZZZ Group Counseling for Substance Abuse Treatment, Cognitive-Behavioral (ICD-10-PCS; principal; 2018-10-13)
DX: F11.23 Opioid dependence with withdrawal (principal); F10.20 Alcohol dependence, uncomplicated; F14.20 Cocaine dependence, uncomplicated; F12.20 Cannabis dependence, uncomplicated; F19.24 Other psychoactive substance dependence with psychoactive substance-induced mood disorder; F31.9 Bipolar disorder, unspecified; J45.21 Mild intermittent asthma with (acute) exacerbation; M54.5 Low back pain; M54.40 Lumbago with sciatica, unspecified side; M12.9 Arthropathy, unspecified; K21.9 Gastro-esophageal reflux disease without esophagitis
CPT/HCPCS: J0735

== ENCOUNTER 2018-11-07 11:36 | Inpatient (IN) | payer OTHER ==
[2018-11-07 11:46] VITALS: BMI 31.0
--- NOTE | 2018-11-07 14:28 | HP ---
COWS - Scale Resting Pulse: 1= [place] 81-100 Sweatin= Chills/Flushing Restless Observation: 1= Difficult to Sit Still Pupil Size: 1= Pupils >than Normal Bone or Joint Aches: 2= Severe Diffuse Aches Runny Nose/ Eye Tearin= Runny Nose/Eyes GI Upset > 30mins: 2= Nausea/Diarrhea Tremor Observation: 1= Tremor [place], Not Seen Yawning Observation: 0= None Anxiety or Irritability: 2=Irritable/Anxious Goose Flesh Skin: 0=Smooth Skin COWS Score: 13 CIWA Score - Admission Criteria OASAS Guidelines: Admission for Medically Managed Detox: Requires at least one of the followin. CIWA greater than 12 2. Seizures within the past 24 hours 3. Delirium tremens within the past 24 hours 4. Hallucinations within the past 24 hours 5. Acute intervention needed for co occurring medical disorder 6. Acute intervention needed for co occurring psychiatric disorder 7. Severe withdrawal that cannot be handled at a lower level of care (continued vomiting, continued diarrhea, abnormal vital signs) requiring intravenous medication and/or fluids 8. Admission ROS [facility] - [facility] Chief Complaint: "sick like a dog from heroin use: need to stop" Allergies/Adverse Reactions: Allergies Allergy/AdvReac Type Severity Reaction Status Date / Time No Known Allergies Allergy Verified 11/07/18 13:16 History of Present Illness: 48 yo recently discharged after detox/rehab on 10/20, AMA. Was given Suboxone during rehab stay but pt never followed up for an appt at [facility]. Pt states she started using heroin the day of discharge- 6-7 bags, b/c she was around the "wrong people". Says she is sniffing daily. Lives alone. Also cocaine use- $200, 4 days ago asthma nicotine dependence arthritis ,low back pain,herniated disc, gerd Istop: librium 04/2018 U tox: THC, cocaine, Fen and opi AWAIS-0 - Ebola screening Have you traveled outside of the country in the last 21 days: No Have you been sick,other than usual withdrawal symptoms: No - Review of Systems Constitutional: No Symptoms Reported EENT: reports: No Symptoms Reported Respiratory: reports: No Symptoms reported Cardiac: reports: No Symptoms Reported GI: reports: Diarrhea, Abdominal cramping : reports: Dysuria Musculoskeletal: reports: No Symptoms Reported Integumentary: reports: No Symptoms Reported Neuro: reports: No Symptoms reported Endocrine: reports: No Symptoms Reported Hematology: reports: No Symptoms Reported Psychiatric: reports: No Sypmtoms Reported Patient History - Patient Medical History Hx Anemia: Yes (no med) Hx Asthma: Yes (ALBUTEROL) Hx Chronic Obstructive Pulmonary Disease (COPD): No Hx Cancer: Yes (cervical ca 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 up with 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) Hx Cardiac Disorders: No Hx Congestive Heart Failure: No Hx Hypertension: Yes Hx Hypercholesterolemia: No Hx Pacemaker: No HX Cerebrovascular Accident: No Hx Seizures: No Hx Dementia: No Hx Diabetes: No Hx Gastrointestinal Disorders: Yes (GERD) Hx Liver Disease: No Hx Genitourinary Disorders: No Hx Sexually Transmitted Disorders: No Hx Renal Disease (ESRD): No Hx Thyroid Disease: No Hx Human Immunodeficiency Virus (HIV): No (NEGATIVE HX last 08/17) Hx Hepatitis C: No Hx Depression: Yes Hx Suicide Attempt: No Hx Bipolar Disorder: Yes Hx Schizophrenia: No - Patient Surgical History Past Surgical History: Yes Hx Neurologic Surgery: No Hx Cataract Extraction: No Hx Cardiac Surgery: No Hx Lung Surgery: No Hx Breast Surgery: No Hx Breast Biopsy: No Hx Abdominal Surgery: No Hx Appendectomy: No Hx Cholecystectomy: Yes (lap in 2006) Hx Genitourinary Surgery: Yes (carcinoma in situ s/p conization in 2013) Hx Section: No Hx Orthopedic Surgery: No Other Surgical History: Pt had a culposcopy. Anesthesia Reaction: No - PPD History Previous Implant?: Yes Documented Results: Negative w/proof Date: 10/08/18 Results: NEGATIVE - Reproductive History Last Menstrual Period: 11/01/18 - Smoking Cessation Smoking history: Current every day smoker Have you smoked in the past 12 months: Yes Aproximately how many cigarettes per day: 6 Cigars Per Day: 0 Hx Chewing Tobacco Use: No Initiated information on smoking cessation: Yes 'Breaking Loose' booklet given: 11/07/18 - Substance & Tx. History Hx Substance Use: Yes Substance Use Type: Cocaine, Heroin, Marijuana Hx Substance Use Treatment: Yes - Substances Abused Heroin Route: Inhalation Frequency: Daily Amount used: 6-7 BAGS Age of first use: 30 Date of Last Use: 11/06/18 Crack Route: Smoking Frequency: 1-2 times per week Amount used: $200-$300 Age of first use: 30 Date of Last Use: 12/05/18 thc Route: Smoking Frequency: 1-2 times per week Family Disease History - Family Disease History Family Disease History: Heart Disease: Grandparent, Other: Father ( - alcohol), Mother (arthritis) Admission Physical Exam [facility] - Vital Signs Vital Signs: Vital Signs - 24 hr 11/07/18 11:44 Temperature 98.5 F Pulse Rate 86 Respiratory 18 Rate Blood Pressure 132/86 - Physical General Appearance: Yes: Within Normal Limits HEENTM: Yes: Within Normal Limits Respiratory: Yes: Within Normal Limits Neck: Yes: Within Normal Limits Cardiology: Yes: Within Normal Limits Abdominal: Yes: Within Normal Limits Genitourinary: Yes: Within Normal Limits Back: Yes: Within Normal Limits Musculoskeletal: Yes: Within Normal Limits Extremities: Yes: Within Normal Limits Neurological: Yes: Within Normal Limits Integumentary: Yes: Within Normal Limits Lymphatic: Yes: Within Normal Limits - Diagnostic (1) Dysuria Current Visit: Yes Status: Acute (2) Opioid dependence with withdrawal Current Visit: No Status: Acute (3) Sciatica Current Visit: No Status: Acute (4) Asthma Current Visit: No Status: Chronic Qualifiers: Asthma severity: mild intermittent Asthma complication type: uncomplicated (5) Cannabis dependence Current Visit: No Status: Chronic Cleared for Admission [facility] - Detox or Rehab [facility] Level of Care: Medically Managed Detox Regimen/Protocol: Methadone [facility] Breath Alcohol Content Breath Alcohol Content: 0 Urine Pregancy Test - Result Urine Test Results: Negative- NO Line Present Urine Drug Screen - Results Drug Screen Negative: No Urine Drug Screen Results: THC-Marijuana, [place]-Cocaine, OPI-Opiates, BZO- Benzodiazepines, FEN-Fentanyl
[2018-11-07] MEDS ORDERED: MENTHOL/PHENOL 1 EACH UD MM PRN (14:36)
[2018-11-07] MEDS ORDERED: P-EPHED 60MG/TRIPROLIDI 2.5MG TABLET PO PRN (14:36)
[2018-11-07] MEDS ORDERED: ACETAMINOPHEN 325 MG TABLET (FP) PO PRN (14:36)
[2018-11-07] MEDS ORDERED: IBUPROFEN 400 MG TABLET (FP) PO PRN (14:36)
[2018-11-07] MEDS ORDERED: MAGNESIUM HYDROX 2400MG/30ML ORAL SUSPENSION 30 ML CUP PO PRN (14:36)
[2018-11-07] MEDS ORDERED: guaiFENesin/D-METHORPHAN HB 10 ML UNIT-DOSE CUPS PO PRN (14:36)
[2018-11-07] MEDS ORDERED: MAGNESIUM CITRATE 300 ML BOTTLE PO PRN (14:36)
[2018-11-07] MEDS ORDERED: LOPERAMIDE HCL 2 MG CAPSULE PO PRN (14:36)
[2018-11-07] MEDS ORDERED: MAG HYDROX/AL HYDROX/SIMETH 30 ML UNIT-DOSE CUP PO PRN (14:36)
[2018-11-07] MEDS ORDERED: ALBUTEROL SO4 8 GM HFA INHALER IH PRN (14:39)
[2018-11-07] MEDS ORDERED: METHADONE HCL 10 MG TABLET (FOR DETOX USE ONLY) PO ONE ×2 (14:39→23:00)
[2018-11-07] MEDS: diazePAM 5 MG TABLET PO PRN ×2 (15:24→22:28)
[2018-11-07] MEDS: THIAMINE HCL 100 MG TABLET (FP) PO SCH (22:28)
[2018-11-07] MEDS: cloNIDine HCL 0.1 MG TABLET PO SCH (22:28)
[2018-11-07] MEDS: hydrOXYzine PAMOATE 50 MG CAPSULE (FP) PO PRN (22:29)
--- NOTE | 2018-11-08 07:44 | CONSULT ---
[facility] Psychiatric Consult - Data Date of interview: 11/08/18 Admission source: [facility] Identifying data: This is a 48 years old female, single mother of six, living alone, on PA support, with history of Bipolar disorder, history of OCD, with multiple medical issues, with no psychiatric hospitalization history, recently discharged after detox/rehab on [facility]. Patient is reporting withdrawal symptoms and seeking detox. Substance Abuse History: Smoking history: Current every day smoker. Have you smoked in the past 12 months: Yes. Aproximately how many cigarettes per day: 6. Cigars Per Day: 0. Hx Chewing Tobacco Use: No. Initiated information on smoking cessation: Yes. 'Breaking Loose' booklet given: 11/07/18. - Substance & Tx. History. Hx Substance Use: Yes. Substance Use Type: Cocaine, Heroin, Marijuana. Hx Substance Use Treatment: Yes. - Substances Abused. Heroin. Route: Inhalation. Frequency: Daily. Amount used: 6-7 BAGS. Age of first use : 30. Date of Last Use: 11/06/18. Crack. Route: Smoking. Frequency: 1-2 times per week. Amount used: $200-$300. Age of first use: 30. Date of Last Use: 11/03/18 Medical History: Cervical Cancer history, GERD, Anemis history, LBP History, Arthritis, Asthma, Psychiatric History: Patient reports history of depression and anxiety, as per computer there is a history of Bipolar Disorder, history of OCD, patient denies psychiatric hospitalization history, reports taking prior to admission: Seroquel 50mg po qhs. Zoloft 100mg po qhs. Denies suicidal and homicidal history Physical/Sexual Abuse/Trauma History: Denies Additional Comment: Seroquel 50mg po qhs. Zoloft 100mg po qhs Mental Status Exam - Mental Status Exam Alert and Oriented to: Person Cognitive Function: Fair Patient Appearance: Unkempt Mood: Suspicious Affect: Flat Patient Behavior: Suspicious, Cooperative Speech Pattern: Appropriate Voice Loudness: Mildly Soft/Quiet Thought Process: Circumstantial, Goal Oriented Thought Disorder: Being Controlled Hallucinations: Denies Suicidal Ideation: Denies Homicidal Ideation: Denies Insight/Judgement: Fair Sleep: Difficulty falling asleep Appetite: Fair Muscle strength/Tone: Mild Hypotonicity Gait/Station: Deferred Additional Comments: Seroquel 50mg po qhs. Zoloft 100mg po qhs Psychiatric Findings - Problem List ([place] 1, 2,3) (1) Dysuria Current Visit: Yes Status: Acute (2) Opioid dependence with withdrawal Current Visit: No Status: Acute (3) Sciatica Current Visit: No Status: Acute (4) Alcohol dependence Current Visit: No Status: Chronic (5) Arthritis Current Visit: No Status: Chronic (6) Asthma Current Visit: No Status: Chronic Qualifiers: Asthma severity: mild intermittent Asthma complication type: uncomplicated (7) Bipolar disorder Current Visit: No Status: Chronic (8) Cannabis dependence Current Visit: No Status: Chronic (9) Cervical cancer Current Visit: No Status: Chronic (10) Cocaine dependence Current Visit: No Status: Chronic Qualifiers: (11) GERD (gastroesophageal reflux disease) Current Visit: No Status: Chronic Qualifiers: (12) Heroin dependence Current Visit: No Status: Chronic (13) Low back pain Current Visit: No Status: Chronic Qualifiers: (14) Nicotine dependence Current Visit: No Status: Chronic Qualifiers: (15) Substance induced mood disorder Current Visit: No Status: Chronic (16) Substance or medication-induced sleep disorder, insomnia type Current Visit: No Status: Chronic (17) History of OCD (obsessive compulsive disorder) Current Visit: No Status: Suspected (18) History of anemia Current Visit: No Status: Suspected - Initial Treatment Plan Initial Treatment Plan: Seroquel 50mg po qhs. Zoloft 100mg po qhs
[2018-11-08] MEDS ORDERED: METHADONE HCL 10 MG TABLET (FOR DETOX USE ONLY) PO ONE (10:00)
[2018-11-08] MEDS: QUEtiapine FUMARATE 50 MG TABLET PO SCH (10:00)
[2018-11-08] MEDS: PRENATAL VITAMINS W/ FOLIC ACID TABLET (FP) PO SCH (10:00)
[2018-11-08] MEDS: diazePAM 5 MG TABLET PO PRN ×2 (10:01→22:19)
[2018-11-08] MEDS: cloNIDine HCL 0.1 MG TABLET PO SCH ×2 (10:01→22:19)
[2018-11-08] MEDS: SERTRALINE HCL 50 MG TABLET (FP) PO SCH (10:01)
[2018-11-08] MEDS: NICOTINE 21 MG/24 HOURS TOPICAL PATCH TD SCH (10:08)
[2018-11-08] MEDS: CYCLOBENZAPRINE HCL 10 MG TABLET (FP) PO PRN (10:08)
[2018-11-08 10:22] LABS: HEMATOCRIT 37.5 % (32.4-45.2); HEMOGLOBIN 11.8 GM/dL (10.7-15.3); MCH 27.9 pg (25.7-33.7); MCHC 31.4 g/dl (32.0-36.0); MEAN CELL VOLUME 88.9 fl (80-96); MEAN PLT VOLUME 9.1 fl (7.5-11.1); PLATELET COUNT 263 K/MM3 (134-434); RBC 4.22 M/mm3 (3.60-5.2); RDW 14.1 % (11.6-15.6); WHITE BLOOD COUNT 6.9 K/mm3 (4.0-10.0)
[2018-11-08 10:34] LABS: ALBUMIN 3.3 g/dl (3.4-5.0); ALK PHOS 100 U/L (45-117); ANION GAP 5 MMOL/L (8-16); BILIRUBIN,TOTAL 0.2 mg/dL (0.2-1); BLOOD UREA NITROGEN 19 mg/dL (7-18); CALCIUM 8.6 mg/dL (8.5-10.1); CHLORIDE 101 mmol/L (98-107); CO2 30 mmol/L (21-32); CREATININE 0.7 mg/dL (0.55-1.3); GLUCOSE,RANDOM 106 mg/dL (74-106); POTASSIUM 4.6 mmol/L (3.5-5.1); SGOT/AST 11 U/L (15-37); SGPT/ALT 17 U/L (13-61); SODIUM 136 mmol/L (136-145); TOT PROT 6.6 g/dl (6.4-8.2)
[2018-11-08 10:51] LABS: URINE APPEARANCE CLEAR; URINE BILIRUBIN NEGATIVE (<2.0 mg/dL); URINE COLOR LTYELLOW; URINE GLUCOSE (UA) NEGATIVE (NEGATIVE); URINE KETONE NEGATIVE (NEGATIVE); URINE LEUK ESTERASE TRACE (NEGATIVE); URINE NITRITE NEGATIVE (NEGATIVE); URINE PROTEIN NEGATIVE (NEGATIVE); URINE UROBILINOGEN NEGATIVE mg/dL (0.2-1.0)
[2018-11-08 10:53] LABS: EPI CELLS RARE /HPF (FEW)
--- NOTE | 2018-11-08 11:01 | PN ---
[facility] COWS - Scale Resting Pulse: 1= [place] 81-100 Sweatin=Flushed/Facial Moisture Restless Observation: 1= Difficult to Sit Still Pupil Size: 0= Normal to Room Light Bone or Joint Aches: 2= Severe Diffuse Aches Runny Nose/ Eye Tearin= Nasal Congestion GI Upset > 30mins: 0= None Tremor Observation of Outstretched Hands: 2= Slight Tremor Visible Yawning Observation: 2= >3x During Session Anxiety or Irritability: 2=Irritable/Anxious Goose Flesh Skin: 0=Smooth Skin COWS Score: 13 [facility] Progress Note (SOAP) Subjective: irritable agitation anxiety sweats chills interrupted sleep chronic back pain Objective: 11/08/18 11:00 Vital Signs Temperature 98.2 F 11/08/18 09:53 Pulse Rate 83 11/08/18 09:53 Respiratory Rate 18 11/08/18 09:53 Blood Pressure 146/77 11/08/18 09:53 O2 Sat by Pulse Oximetry (%) Laboratory Tests 11/08/18 11/08/18 11/08/18 07:00 07:00 07:00 WBC 6.9 RBC 4.22 Hgb 11.8 Hct 37.5 MCV 88.9 MCH 27.9 MCHC 31.4 L RDW 14.1 Plt Count 263 D MPV 9.1 Sodium 136 Potassium 4.6 Chloride 101 Carbon Dioxide 30 Anion Gap 5 L BUN 19 H Creatinine 0.7 Creat Clearance w eGFR > 60 Random Glucose 106 Calcium 8.6 Total Bilirubin 0.2 AST 11 L ALT 17 Alkaline Phosphatase 100 Total Protein 6.6 Albumin 3.3 L Urine Color Ltyellow Urine Appearance Clear Urine pH 6.0 Ur Specific [place] 1.023 Urine Protein Negative Urine Glucose (UA) Negative Urine Ketones Negative Urine Blood Negative Urine Nitrite Negative Urine Bilirubin Negative Urine Urobilinogen Negative Ur Leukocyte Esterase Trace Urine WBC (Auto) 15 Urine RBC (Auto) 2 Ur Epithelial Cells Rare aaox3 ambulating no acute distress Assessment: 11/08/18 11:01 withdrawal sx Plan: continue detox increase fluids flexiril 10mg prn
[2018-11-08] MEDS: hydrOXYzine PAMOATE 50 MG CAPSULE (FP) PO PRN (14:51)
[2018-11-08] MEDS: QUEtiapine FUMARATE 100 MG TABLET (FP) PO SCH (22:19)
[2018-11-09] MEDS: THIAMINE HCL 100 MG TABLET (FP) PO SCH ×2 (00:46→22:00)
--- NOTE | 2018-11-09 09:21 | PN ---
[facility] COWS - Scale Resting Pulse: 0= [place] 80 or Below Sweatin=Flushed/Facial Moisture Restless Observation: 1= Difficult to Sit Still Pupil Size: 0= Normal to Room Light Bone or Joint Aches: 2= Severe Diffuse Aches Runny Nose/ Eye Tearin= Nasal Congestion GI Upset > 30mins: 0= None Tremor Observation of Outstretched Hands: 2= Slight Tremor Visible Yawning Observation: 1= 1-2x During Session Anxiety or Irritability: 2=Irritable/Anxious Goose Flesh Skin: 0=Smooth Skin COWS Score: 11 S Progress Note (SOAP) Subjective: chronic low back pain sweats irritable agitation Objective: 11/09/18 09:20 Vital Signs Temperature 98.1 F 11/08/18 22:00 Pulse Rate 71 11/08/18 22:00 Respiratory Rate 18 11/09/18 03:30 Blood Pressure 139/69 11/08/18 22:00 O2 Sat by Pulse Oximetry (%) Laboratory Tests 11/08/18 11/08/18 11/08/18 07:00 07:00 07:00 WBC 6.9 RBC 4.22 Hgb 11.8 Hct 37.5 MCV 88.9 MCH 27.9 MCHC 31.4 L RDW 14.1 Plt Count 263 D MPV 9.1 Sodium 136 Potassium 4.6 Chloride 101 Carbon Dioxide 30 Anion Gap 5 L BUN 19 H Creatinine 0.7 Creat Clearance w eGFR > 60 Random Glucose 106 Calcium 8.6 Total Bilirubin 0.2 AST 11 L ALT 17 Alkaline Phosphatase 100 Total Protein 6.6 Albumin 3.3 L Urine Color Urine Appearance Urine pH Ur Specific [place] Urine Protein Urine Glucose (UA) Urine Ketones Urine Blood Urine Nitrite Urine Bilirubin Urine Urobilinogen Ur Leukocyte Esterase Urine WBC (Auto) Urine RBC (Auto) Ur Epithelial Cells RPR Titer Nonreactive 11/08/18 07:00 WBC RBC Hgb Hct MCV MCH MCHC RDW Plt Count MPV Sodium Potassium Chloride Carbon Dioxide Anion Gap BUN Creatinine Creat Clearance w eGFR Random Glucose Calcium Total Bilirubin AST ALT Alkaline Phosphatase Total Protein Albumin Urine Color Ltyellow Urine Appearance Clear Urine pH 6.0 Ur Specific [place] 1.023 Urine Protein Negative Urine Glucose (UA) Negative Urine Ketones Negative Urine Blood Negative Urine Nitrite Negative Urine Bilirubin Negative Urine Urobilinogen Negative Ur Leukocyte Esterase Trace Urine WBC (Auto) 15 Urine RBC (Auto) 2 Ur Epithelial Cells Rare RPR Titer aaox3 ambulating no acute distress Assessment: 11/09/18 09:20 withdrawal sx Plan: continue detox increase fluids lidocaine patch daily motrin 800mg prn
[2018-11-09] MEDS ORDERED: METHADONE HCL 5 MG TABLET (FOR DETOX USE ONLY) PO ONE (10:00)
[2018-11-09] MEDS: QUEtiapine FUMARATE 50 MG TABLET PO SCH (10:09)
[2018-11-09] MEDS: diazePAM 5 MG TABLET PO PRN ×2 (10:09→17:54)
[2018-11-09] MEDS: PRENATAL VITAMINS W/ FOLIC ACID TABLET (FP) PO SCH (10:09)
[2018-11-09] MEDS: cloNIDine HCL 0.1 MG TABLET PO SCH ×2 (10:09→22:00)
[2018-11-09] MEDS: SERTRALINE HCL 50 MG TABLET (FP) PO SCH (10:09)
[2018-11-09] MEDS: IBUPROFEN 400 MG TABLET (FP) PO PRN ×2 (10:11→17:54)
[2018-11-09] MEDS: NICOTINE 21 MG/24 HOURS TOPICAL PATCH TD SCH (10:11)
[2018-11-09] MEDS: LIDOCAINE 5% TOPICAL PATCH TP SCH (10:11)
[2018-11-09] MEDS: MELATONIN 5 MG TABLETS PO PRN (22:00)
[2018-11-09] MEDS: QUEtiapine FUMARATE 100 MG TABLET (FP) PO SCH (22:00)
[2018-11-09] MEDS: LIDOCAINE PATCH REMOVAL MC SCH (22:02)
[2018-11-09] MEDS: hydrOXYzine PAMOATE 50 MG CAPSULE (FP) PO PRN (22:05)
[2018-11-10] MEDS: CYCLOBENZAPRINE HCL 10 MG TABLET (FP) PO PRN ×3 (07:57→22:07)
[2018-11-10] MEDS: IBUPROFEN 400 MG TABLET (FP) PO PRN ×2 (07:57→17:23)
--- NOTE | 2018-11-10 08:39 | PN ---
Psychiatric Progress Note Vital Signs: Vital Signs Period Temp Pulse Resp BP Sys/Mccracken Pulse Ox Last 24 Hr 96.8 F-98.4 F 75-84 16-20 100-143/55-70 Date of Session: 11/10/18 Chief Complaint:: My Buspar HPI: Patient reports she was taking prior to admission Buspar 10mg po tid and motivated to startit here during detox protocol Current Medications: Active Medications Generic Name Dose Route Start Last Admin Trade Name Freq PRN Reason Stop Dose Admin Acetaminophen 650 mg 11/07/18 14:36 11/07/18 17:40 Tylenol - PO 650 mg Q4H PRN Administration FEVER Al Hydroxide/Mg Hydroxide 30 ml 11/07/18 14:36 Mylanta Oral Suspension - PO Q6H PRN DYSPEPSIA Albuterol Sulfate 2 puff 11/07/18 14:39 Ventolin Hfa Inhaler - IH Q4H PRN ASTHMA Buspirone HCl 10 mg 11/10/18 14:00 Buspar - PO TID KIARRA Clonidine 0.1 mg 11/07/18 22:00 11/09/18 22:00 Catapres - PO 0.1 mg BID KIARRA Administration Cyclobenzaprine HCl 10 mg 11/08/18 09:59 11/10/18 07:57 Flexeril - PO 10 mg TID PRN Administration MUSCLE SPASMS Diazepam 10 mg 11/07/18 14:39 11/09/18 17:54 Valium - PO 11/10/18 14:38 10 mg Q4H PRN Administration WITHDRAWAL(CONT SUBST) Eucalyptus/Menthol/Phenol/Sorbitol 1 each 11/07/18 14:36 Cepastat Lozenge - MM Q4H PRN SORE THROAT Guaifenesin 10 ml 11/07/18 14:36 Robitussin Dm - PO Q6H PRN COUGH Hydroxyzine Pamoate 50 mg 11/07/18 14:36 11/09/18 22:05 Vistaril - PO 50 mg Q4H PRN Administration AGITATION Ibuprofen 800 mg 11/09/18 08:45 11/10/18 07:57 Motrin - PO 800 mg Q8H PRN Administration PAIN LEVEL 4-6 Lidocaine 1 patch 11/09/18 10:00 11/09/18 10:11 Lidoderm Patch - TP 1 patch DAILY KIARRA Administration Loperamide HCl 4 mg 11/07/18 14:36 Imodium - PO Q6H PRN DIARRHEA Magnesium Citrate 300 ml 11/07/18 14:36 Citroma - PO Q48H PRN CONSTIPATION Magnesium Hydroxide 30 ml 11/07/18 14:36 Milk Of Magnesia - PO DAILY PRN CONSTIPATION Melatonin 5 mg 11/07/18 22:00 11/09/18 22:00 Melatonin PO 5 mg HS PRN Administration INSOMNIA Methadone HCl 5 mg 11/12/18 06:00 Dolophine - PO 11/12/18 06:01 ONCE@0600 ONE Methadone HCl 15 mg 11/10/18 10:00 Dolophine - PO 11/10/18 10:01 ONCE ONE Methadone HCl 10 mg 11/11/18 10:00 Dolophine - PO 11/11/18 10:01 ONCE ONE Miscellaneous 1 each 11/09/18 22:00 11/09/18 22:02 Lidoderm Patch Removal MC 1 each DAILY@2200 KIARRA Administration Nicotine 21 mg 11/08/18 10:00 11/09/18 10:11 Nicoderm Patch - TD 21 mg DAILY KIARRA Administration Multivit/Folic Acid/Iron 1 tab 11/08/18 10:00 11/09/18 10:09 Vitamins (Sjr) - PO 1 tab DAILY KIARRA Administration Pseudoephedrine/Triprolidine 1 combo 11/07/18 14:36 Actifed - PO TID PRN NASAL CONGESTION Quetiapine Fumarate 100 mg 11/08/18 22:00 11/09/18 22:00 Seroquel - PO 100 mg HS KIARRA Administration Quetiapine Fumarate 50 mg 11/08/18 10:00 11/09/18 10:09 Seroquel - PO 50 mg DAILY KIARRA Administration Sertraline HCl 100 mg 11/08/18 10:00 11/09/18 10:09 Zoloft - PO 100 mg DAILY KIARRA Administration Thiamine HCl 100 mg 11/07/18 22:00 11/09/18 22:00 Vitamin B1 - PO 100 mg HS KIARRA Administration Medication(s) Change(s): Buspar 10mg po tid Mental Status Exam - Mental Status Exam Alert and Oriented to: Place, Person Cognitive Function: Fair Patient Appearance: Unkempt Mood: Anxious, Irritable Affect: Labile Patient Behavior: Agitated Speech Pattern: Excessive Voice Loudness: Mildly Loud Thought Process: Goal Oriented Thought Disorder: Being Controlled Hallucinations: Denies Suicidal Ideation: Denies Homicidal Ideation: Denies Insight/Judgement: Fair Sleep: Difficulty falling asleep Appetite: Fair Muscle strength/Tone: Normal Gait/Station: Normal Additional Comments: Buspar 10mg po tid Psychiatric Treatment Plan - Problem List (1) Dysuria Current Visit: Yes (2) Opioid dependence with withdrawal Current Visit: No (3) Sciatica Current Visit: No (4) Alcohol dependence Current Visit: No (5) Arthritis Current Visit: No (6) Asthma Current Visit: No Qualifiers: Asthma severity: mild intermittent Asthma complication type: uncomplicated (7) Bipolar disorder Current Visit: No (8) Cannabis dependence Current Visit: No (9) Cervical cancer Current Visit: No (10) Cocaine dependence Current Visit: No Qualifiers: (11) GERD (gastroesophageal reflux disease) Current Visit: No Qualifiers: (12) Heroin dependence Current Visit: No (13) Low back pain Current Visit: No Qualifiers: (14) Nicotine dependence Current Visit: No Qualifiers: (15) Substance induced mood disorder Current Visit: No (16) Substance or medication-induced sleep disorder, insomnia type Current Visit: No (17) History of OCD (obsessive compulsive disorder) Current Visit: No (18) History of anemia Current Visit: No Initial treatment plan: Buspar 10mg po tid
[2018-11-10] MEDS ORDERED: METHADONE HCL 5 MG TABLET (FOR DETOX USE ONLY) PO ONE (10:00)
[2018-11-10] MEDS: SERTRALINE HCL 50 MG TABLET (FP) PO SCH (10:04)
[2018-11-10] MEDS: PRENATAL VITAMINS W/ FOLIC ACID TABLET (FP) PO SCH (10:04)
[2018-11-10] MEDS: cloNIDine HCL 0.1 MG TABLET PO SCH ×2 (10:04→22:22)
[2018-11-10] MEDS: LIDOCAINE 5% TOPICAL PATCH TP SCH (10:05)
[2018-11-10] MEDS: QUEtiapine FUMARATE 50 MG TABLET PO SCH (10:05)
[2018-11-10] MEDS: diazePAM 5 MG TABLET PO PRN (10:05)
[2018-11-10] MEDS: NICOTINE 21 MG/24 HOURS TOPICAL PATCH TD SCH (10:05)
[2018-11-10] MEDS ORDERED: COLLOIDAL OATMEAL 1 BAR EACH TP PRN (10:08)
--- NOTE | 2018-11-10 10:13 | PN ---
[facility] Progress Note (SOAP) Subjective: sweats chronic low back pain agitation aveeno soap Objective: 11/10/18 10:11 Vital Signs Temperature 97.0 F L 11/10/18 09:58 Pulse Rate 74 11/10/18 09:58 Respiratory Rate 18 11/10/18 09:58 Blood Pressure 110/70 11/10/18 09:58 O2 Sat by Pulse Oximetry (%) aaox3 ambulating no acute distress Assessment: 11/10/18 10:11 withdrawal sx Plan: continue detox increase fluids aveeno soap
[2018-11-10] MEDS: busPIRone HCL 10 MG TABLET (FP) PO SCH ×2 (13:19→22:04)
[2018-11-10] MEDS: hydrOXYzine PAMOATE 50 MG CAPSULE (FP) PO PRN ×2 (17:23→22:07)
[2018-11-10] MEDS: LIDOCAINE PATCH REMOVAL MC SCH (22:02)
[2018-11-10] MEDS: QUEtiapine FUMARATE 100 MG TABLET (FP) PO SCH (22:04)
[2018-11-10] MEDS: THIAMINE HCL 100 MG TABLET (FP) PO SCH (22:04)
[2018-11-10] MEDS: MELATONIN 5 MG TABLETS PO PRN (22:04)
[2018-11-11] MEDS: IBUPROFEN 400 MG TABLET (FP) PO PRN ×2 (07:14→10:20)
[2018-11-11] MEDS: busPIRone HCL 10 MG TABLET (FP) PO SCH ×3 (07:14→22:02)
[2018-11-11] MEDS: CYCLOBENZAPRINE HCL 10 MG TABLET (FP) PO PRN ×2 (07:14→17:27)
--- NOTE | 2018-11-11 08:10 | PN ---
Psychiatric Progress Note Vital Signs: Vital Signs Period Temp Pulse Resp BP Sys/Mccracken Pulse Ox Last 24 Hr 96.8 F-98.6 F 74-82 16-18 110-118/47-82 Date of Session: 11/11/18 Chief Complaint:: Anxiety, HPI: Patient reports anxiety and irritability during day time, asking for mediccation intervention. Rec: Seroquel 100mg po bid Current Medications: Active Medications Generic Name Dose Route Start Last Admin Trade Name Freq PRN Reason Stop Dose Admin Acetaminophen 650 mg 11/07/18 14:36 11/07/18 17:40 Tylenol - PO 650 mg Q4H PRN Administration FEVER Al Hydroxide/Mg Hydroxide 30 ml 11/07/18 14:36 Mylanta Oral Suspension - PO Q6H PRN DYSPEPSIA Albuterol Sulfate 2 puff 11/07/18 14:39 Ventolin Hfa Inhaler - IH Q4H PRN ASTHMA Buspirone HCl 10 mg 11/10/18 14:00 11/11/18 07:14 Buspar - PO 10 mg TID KIARRA Administration Clonidine 0.1 mg 11/07/18 22:00 11/10/18 22:22 Catapres - PO 0.1 mg BID KIARRA Administration Colloidal Oatmeal 1 applic 11/10/18 10:08 11/10/18 10:59 Aveeno Soap - TP 1 bar DAILY PRN Administration HYGEINE Cyclobenzaprine HCl 10 mg 11/08/18 09:59 11/11/18 07:14 Flexeril - PO 10 mg TID PRN Administration MUSCLE SPASMS Eucalyptus/Menthol/Phenol/Sorbitol 1 each 11/07/18 14:36 Cepastat Lozenge - MM Q4H PRN SORE THROAT Guaifenesin 10 ml 11/07/18 14:36 Robitussin Dm - PO Q6H PRN COUGH Hydroxyzine Pamoate 50 mg 11/07/18 14:36 11/10/18 22:07 Vistaril - PO 50 mg Q4H PRN Administration AGITATION Ibuprofen 800 mg 11/09/18 08:45 11/11/18 07:14 Motrin - PO 800 mg Q8H PRN Administration PAIN LEVEL 4-6 Lidocaine 1 patch 11/09/18 10:00 11/10/18 10:05 Lidoderm Patch - TP 1 patch DAILY KIARRA Administration Loperamide HCl 4 mg 11/07/18 14:36 Imodium - PO Q6H PRN DIARRHEA Magnesium Citrate 300 ml 11/07/18 14:36 Citroma - PO Q48H PRN CONSTIPATION Magnesium Hydroxide 30 ml 11/07/18 14:36 Milk Of Magnesia - PO DAILY PRN CONSTIPATION Melatonin 5 mg 11/07/18 22:00 11/10/18 22:04 Melatonin PO 5 mg HS PRN Administration INSOMNIA Methadone HCl 5 mg 11/12/18 06:00 Dolophine - PO 11/12/18 06:01 ONCE@0600 ONE Methadone HCl 10 mg 11/11/18 10:00 Dolophine - PO 11/11/18 10:01 ONCE ONE Miscellaneous 1 each 11/09/18 22:00 11/10/18 22:02 Lidoderm Patch Removal MC Not Given DAILY@2200 KIARRA Nicotine 21 mg 11/08/18 10:00 11/10/18 10:05 Nicoderm Patch - TD 21 mg DAILY KIARRA Administration Multivit/Folic Acid/Iron 1 tab 11/08/18 10:00 11/10/18 10:04 Vitamins (Sjr) - PO 1 tab DAILY KIARRA Administration Pseudoephedrine/Triprolidine 1 combo 11/07/18 14:36 Actifed - PO TID PRN NASAL CONGESTION Quetiapine Fumarate 100 mg 11/11/18 10:00 Seroquel - PO BID KIARRA Sertraline HCl 100 mg 11/08/18 10:00 11/10/18 10:04 Zoloft - PO 100 mg DAILY KIARRA Administration Thiamine HCl 100 mg 11/07/18 22:00 11/10/18 22:04 Vitamin B1 - PO 100 mg HS KIARRA Administration Medication(s) Change(s): Seroquel 100mg po bid. Seroquel 50mg poqd to d/c Mental Status Exam - Mental Status Exam Alert and Oriented to: Place, Person Cognitive Function: Fair Patient Appearance: Well Groomed Mood: Anxious Affect: Mood Congruent Patient Behavior: Cooperative Speech Pattern: Appropriate Voice Loudness: Normal Thought Process: Goal Oriented Thought Disorder: Being Controlled Hallucinations: Denies Suicidal Ideation: Denies Homicidal Ideation: Denies Insight/Judgement: Fair Sleep: Difficulty falling asleep Appetite: Fair Muscle strength/Tone: Normal Gait/Station: Normal Additional Comments: Seroquel 100mg po bid Psychiatric Treatment Plan - Problem List (1) Dysuria Current Visit: Yes (2) Opioid dependence with withdrawal Current Visit: No (3) Sciatica Current Visit: No (4) Alcohol dependence Current Visit: No (5) Arthritis Current Visit: No (6) Asthma Current Visit: No Qualifiers: Asthma severity: mild intermittent Asthma complication type: uncomplicated (7) Bipolar disorder Current Visit: No (8) Cannabis dependence Current Visit: No (9) Cervical cancer Current Visit: No (10) Cocaine dependence Current Visit: No Qualifiers: (11) GERD (gastroesophageal reflux disease) Current Visit: No Qualifiers: (12) Heroin dependence Current Visit: No (13) Low back pain Current Visit: No Qualifiers: (14) Nicotine dependence Current Visit: No Qualifiers: (15) Substance induced mood disorder Current Visit: No (16) Substance or medication-induced sleep disorder, insomnia type Current Visit: No (17) History of OCD (obsessive compulsive disorder) Current Visit: No (18) History of anemia Current Visit: No
[2018-11-11] MEDS ORDERED: METHADONE HCL 10 MG TABLET (FOR DETOX USE ONLY) PO ONE (10:00)
[2018-11-11] MEDS: QUEtiapine FUMARATE 100 MG TABLET (FP) PO SCH ×2 (10:15→22:03)
[2018-11-11] MEDS: cloNIDine HCL 0.1 MG TABLET PO SCH ×2 (10:15→22:02)
[2018-11-11] MEDS: SERTRALINE HCL 50 MG TABLET (FP) PO SCH (10:15)
[2018-11-11] MEDS: PRENATAL VITAMINS W/ FOLIC ACID TABLET (FP) PO SCH (10:15)
[2018-11-11] MEDS: LIDOCAINE 5% TOPICAL PATCH TP SCH (10:18)
[2018-11-11] MEDS: hydrOXYzine PAMOATE 50 MG CAPSULE (FP) PO PRN ×3 (10:19→22:07)
[2018-11-11] MEDS: NICOTINE 21 MG/24 HOURS TOPICAL PATCH TD SCH (10:48)
--- NOTE | 2018-11-11 14:08 | PN ---
[facility] Progress Note (SOAP) Subjective: sweats chronic low back pain Objective: 11/11/18 14:07 Vital Signs Temperature 97.2 F L 11/11/18 09:24 Pulse Rate 75 11/11/18 09:24 Respiratory Rate 18 11/11/18 09:24 Blood Pressure 137/51 L 11/11/18 09:24 O2 Sat by Pulse Oximetry (%) aaox3 ambulating no acute distress Assessment: 11/11/18 14:08 withdrawal sx Plan: continue detox increase fluids lidocaine patch d/c in am
[2018-11-11] MEDS: THIAMINE HCL 100 MG TABLET (FP) PO SCH (22:03)
[2018-11-11] MEDS: MELATONIN 5 MG TABLETS PO PRN (22:03)
[2018-11-11] MEDS: LIDOCAINE PATCH REMOVAL MC SCH (22:04)
[2018-11-12] MEDS: CYCLOBENZAPRINE HCL 10 MG TABLET (FP) PO PRN (05:08)
[2018-11-12] MEDS: busPIRone HCL 10 MG TABLET (FP) PO SCH (05:09)
[2018-11-12] MEDS: IBUPROFEN 400 MG TABLET (FP) PO PRN (05:13)
[2018-11-12] MEDS ORDERED: METHADONE HCL 5 MG TABLET (FOR DETOX USE ONLY) PO ONE (06:00)
[2018-11-12 06:48] VITALS: TEMP 97.7
[2018-11-12] MEDS: PRENATAL VITAMINS W/ FOLIC ACID TABLET (FP) PO SCH (09:07)
[2018-11-12] MEDS: cloNIDine HCL 0.1 MG TABLET PO SCH (09:07)
[2018-11-12] MEDS: SERTRALINE HCL 50 MG TABLET (FP) PO SCH (09:07)
[2018-11-12] MEDS: QUEtiapine FUMARATE 100 MG TABLET (FP) PO SCH (09:08)
[2018-11-12 09:48] VITALS: BP 122/79; PULSE 89
--- NOTE | 2018-11-12 09:52 | DS ---
[facility] Detox Discharge Summary Admission Date: 11/07/18 Discharge Date: 11/12/18 - History Present History: Alcohol Dependence, Cannabis Dependence, Cocaine Dependence, Opioid Dependence - Physical Exam Results Vital Signs: Vital Signs Temperature 97.7 F 11/12/18 06:47 Pulse Rate 75 11/12/18 06:47 Respiratory Rate 18 11/12/18 06:47 Blood Pressure 136/74 11/12/18 06:47 O2 Sat by Pulse Oximetry (%) - Treatment Hospital Course: Detox Protocol Followed, Detoxed Safely, Responded well, Discharged Condition Good, Rehab Referral Accepted - Medication Discharge Medications: Ambulatory Orders Omeprazole 40 mg PO DAILY 02/27/17 Albuterol Sulfate Inhaler - [Ventolin HFA Inhaler -] 2 inh PO Q4H PRN #1 inhaler 10/10/18 cloNIDine HCL [Catapres -] 0.1 mg PO BID #14 tablet 10/10/18 Quetiapine Fumarate [Seroquel -] 50 mg PO DAILY #30 tablet 11/08/18 Quetiapine Fumarate [Seroquel] 100 mg PO HS #30 tablet 11/08/18 Sertraline HCl [Zoloft -] 100 mg PO DAILY #30 tablet 11/08/18 Buspirone HCl [Buspar -] 10 mg PO TID #90 tablet 11/10/18 - Diagnosis (1) Dysuria Current Visit: Yes Status: Acute (2) Opioid dependence with withdrawal Current Visit: Yes Status: Chronic (3) Sciatica Current Visit: No Status: Acute (4) Alcohol dependence Current Visit: Yes Status: Chronic Qualifiers: Substance use status: uncomplicated Qualified Code(s): F10.20 - Alcohol dependence, uncomplicated (5) Arthritis Current Visit: No Status: Chronic (6) Asthma Current Visit: No Status: Chronic Qualifiers: Asthma severity: mild intermittent Asthma complication type: uncomplicated (7) Bipolar disorder Current Visit: No Status: Chronic (8) Cannabis dependence Current Visit: Yes Status: Chronic (9) Cervical cancer Current Visit: No Status: Chronic (10) Cocaine dependence Current Visit: Yes Status: Chronic Qualifiers: Substance use status: uncomplicated (11) GERD (gastroesophageal reflux disease) Current Visit: Yes Status: Chronic Qualifiers: Esophagitis presence: without esophagitis Qualified Code(s): K21.9 - Gastro -esophageal reflux disease without esophagitis (12) Low back pain Current Visit: No Status: Chronic Qualifiers: (13) Nicotine dependence Current Visit: Yes Status: Chronic Qualifiers: Nicotine product type: cigarettes (14) Substance induced mood disorder Current Visit: Yes Status: Chronic (15) Substance or medication-induced sleep disorder, insomnia type Current Visit: No Status: Chronic (16) History of OCD (obsessive compulsive disorder) Current Visit: No Status: Suspected (17) History of anemia Current Visit: No Status: Suspected - AMA Did Patient Leave Against Medical Advice: No (referred to [facility])
== END 2018-11-12 09:12 | disposition home or self-care (01) | DRG 773 ==
LOC: YASAS 11:36 → Y6N 13:45
PROC: HZ2ZZZZ Detoxification Services for Substance Abuse Treatment (ICD-10-PCS; principal; 2018-11-07)
DX: F11.23 Opioid dependence with withdrawal (principal); F10.20 Alcohol dependence, uncomplicated; F14.20 Cocaine dependence, uncomplicated; F12.20 Cannabis dependence, uncomplicated; F17.210 Nicotine dependence, cigarettes, uncomplicated; F19.282 Other psychoactive substance dependence with psychoactive substance-induced sleep disorder; F19.24 Other psychoactive substance dependence with psychoactive substance-induced mood disorder; F31.9 Bipolar disorder, unspecified; J45.20 Mild intermittent asthma, uncomplicated; K21.9 Gastro-esophageal reflux disease without esophagitis; R30.0 Dysuria; M12.9 Arthropathy, unspecified; M54.40 Lumbago with sciatica, unspecified side; Z86.2 Personal history of diseases of the blood and blood-forming organs and certain disorders involving the immune mechanism; Z85.41 Personal history of malignant neoplasm of cervix uteri; Z86.59 Personal history of other mental and behavioral disorders
CPT/HCPCS: 36415; 80053; 81003; 81015; 85027; 86593; J0735

== ENCOUNTER 2018-12-09 08:12 | Inpatient (IN) | payer OTHER ==
[2018-12-09 08:35] VITALS: BMI 31.9
--- NOTE | 2018-12-09 09:44 | HP ---
COWS - Scale Resting Pulse: 1= [place] 81-100 Sweatin= Chills/Flushing Restless Observation: 3= Extraneous Movement Pupil Size: 1= Pupils >than Normal Bone or Joint Aches: 2= Severe Diffuse Aches Runny Nose/ Eye Tearin= Runny Nose/Eyes GI Upset > 30mins: 2= Nausea/Diarrhea Tremor Observation: 2= Slight Tremor Visible Yawning Observation: 1= 1-2x During Session Anxiety or Irritability: 2=Irritable/Anxious Goose Flesh Skin: 0=Smooth Skin COWS Score: 17 CIWA Score Nausea/Vomitin Muscle Tremors: 2 Anxiety: 2 Agitation: 2 Paroxysmal Sweats: 1-Minimal Palms Moist Orientation: 0-Oriented Tacttile Disturbances: 1-Very Mild Itch/Numbness Auditory Disturbances: 1-Very Mild Visual Disturbances: 0-None Headache: 2-Mild CIWA-Ar Total Score: 13 - Admission Criteria [facility]ASAS Guidelines: Admission for Medically Managed Detox: Requires at least one of the followin. CIWA greater than 12 2. Seizures within the past 24 hours 3. Delirium tremens within the past 24 hours 4. Hallucinations within the past 24 hours 5. Acute intervention needed for co occurring medical disorder 6. Acute intervention needed for co occurring psychiatric disorder 7. Severe withdrawal that cannot be handled at a lower level of care (continued vomiting, continued diarrhea, abnormal vital signs) requiring intravenous medication and/or fluids 8. Patient presents the following: CIWA greater than 12 Admission Criteria Met: Admission criteria met Admission ROS [facility] Chief Complaint: i need help to stop using heroin,cocaine and alcohol,marijuana Allergies/Adverse Reactions: Allergies Allergy/AdvReac Type Severity Reaction Status Date / Time librium Allergy Uncoded 12/09/18 10:28 History of Present Illness: this 48 years old female with heroin,alcohol,cocaine,marijuana dependence, seeking detox,extensive history of polysubstance dependence and alcohol dependence,last treatment 11/07/18 to 11/12/18 syncope bipolar disorder ,depression,non compliance nicotine dependence plan for rehab or long term care pharmacist residence no significant period of sobriety - Ebola screening Have you traveled outside of the country in the last 21 days: No Have you had contact with anyone from an Ebola affected area: No Have you been sick,other than usual withdrawal symptoms: No Do you have a fever: No - Review of Systems Constitutional: Chills, Malaise, Night Sweats, Changes in sleep, Weakness EENT: reports: Tearing, Nose Congestion Respiratory: reports: No Symptoms reported Cardiac: reports: No Symptoms Reported GI: reports: Diarrhea, Nausea, Vomiting, Abdominal cramping : reports: No Symptoms Reported Musculoskeletal: reports: Back Pain, Joint Pain, Muscle Pain, Joint Stiffness Integumentary: reports: Dryness Endocrine: reports: No Symptoms Reported Hematology: reports: No Symptoms Reported Psychiatric: reports: No Sypmtoms Reported, Judgement Intact, Mood/Affect Appropiate, Orientated x3, Depressed (bipolar disorder), other Patient History - Patient Medical History Hx Anemia: Yes (no med) Hx Asthma: No Hx Chronic Obstructive Pulmonary Disease (COPD): No Hx Cancer: Yes (cervical ca follow up with own feeder/folder) Hx Cardiac Disorders: No Hx Congestive Heart Failure: No Hx Hypertension: No Hx Hypercholesterolemia: No Hx Pacemaker: No HX Cerebrovascular Accident: No Hx Seizures: No Hx Dementia: No Hx Diabetes: No Hx Gastrointestinal Disorders: No Hx Liver Disease: No Hx Genitourinary Disorders: No Hx Sexually Transmitted Disorders: No Hx Renal Disease (ESRD): No Hx Thyroid Disease: No Hx Human Immunodeficiency Virus (HIV): No (NEGATIVE HX last 08/17) Hx Hepatitis C: No Hx Depression: Yes Hx Suicide Attempt: No Hx Bipolar Disorder: Yes Hx Schizophrenia: No Other Medical History: no suicidal,no homicidal - Patient Surgical History Past Surgical History: Yes Hx Neurologic Surgery: No Hx Cataract Extraction: No Hx Cardiac Surgery: No Hx Lung Surgery: No Hx Breast Surgery: No Hx Breast Biopsy: No Hx Abdominal Surgery: No Hx Appendectomy: No Hx Cholecystectomy: Yes (lap in 2006) Hx Genitourinary Surgery: Yes (carcinoma in situ s/p conization in 2013) Hx Section: No Hx Orthopedic Surgery: No Other Surgical History: Pt had a culposcopy. Anesthesia Reaction: No - PPD History Previous Implant?: Yes Documented Results: Negative w/proof Implanted On Prior R Admission?: Yes Date: 10/08/18 Results: NEGATIVE - Reproductive History Last Menstrual Period: 11/01/18 - Smoking Cessation Smoking history: Current every day smoker Have you smoked in the past 12 months: Yes Aproximately how many cigarettes per day: 8 Cigars Per Day: 0 Hx Chewing Tobacco Use: No Initiated information on smoking cessation: Yes 'Breaking Loose' booklet given: 12/09/18 - Substances Abused Heroin Route: Inhalation Frequency: Daily Amount used: 7-8 BAGS Age of first use: 30 Date of Last Use: 12/09/18 Cocaine Route: Inhalation Frequency: 1-2 times per week Amount used: $40 Age of first use: 26 Date of Last Use: 11/18/18 Crack Route: Smoking Frequency: Daily Amount used: $300-$400 Age of first use: 16 Date of Last Use: 12/08/18 Marijuana/Hashish Route: Smoking Frequency: Daily Amount used: 1 BAG Age of first use: 13 Date of Last Use: 12/09/18 Family Disease History - Family Disease History Family Disease History: Heart Disease: Grandparent, Other: Father ( - alcohol), Mother (arthritis) Admission Physical Exam S - Vital Signs Vital Signs: Vital Signs - 24 hr 12/09/18 08:28 Temperature 97.3 F L Pulse Rate 86 Respiratory 18 Rate Blood Pressure 132/67 - Physical General Appearance: Yes: Moderate Distress, Tremorous, Irritable, Sweating, Anxious HEENTM: Yes: Normal ENT Inspection, ANGEL, Pharynx Normal Respiratory: Yes: Lungs Clear, Normal Breath Sounds, No Respiratory Distress Neck: Yes: Within Normal Limits, Supple, Trachea in good position Breast: Yes: Breast Exam Deferred Cardiology: Yes: Within Normal Limits, Regular Rhythm, Regular Rate, S1, S2 Abdominal: Yes: Normal Bowel Sounds, Non Tender, Flat, Soft, Surgical Scar (s/p lap cholecystectomy) Genitourinary: Yes: Within Normal Limits Back: Yes: Muscle Spasm Extremities: Yes: Within Normal Limits, Normal Range of Motion, Tremors Neurological: Yes: development professional II-XII NML intact, Fully Oriented, Alert, Motor Strength 5/5 Integumentary: Yes: Dry Lymphatic: Yes: Within Normal Limits - Diagnostic (1) Opioid dependence with withdrawal Current Visit: Yes Status: Acute (2) Bipolar disorder Current Visit: No Status: Chronic (3) Cannabis dependence Current Visit: No Status: Chronic (4) Cocaine dependence Current Visit: No Status: Chronic Qualifiers: Substance use status: uncomplicated Qualified Code(s): F14.20 - Cocaine dependence, uncomplicated (5) GERD (gastroesophageal reflux disease) Current Visit: No Status: Chronic Qualifiers: Esophagitis presence: without esophagitis Qualified Code(s): K21.9 - Gastro -esophageal reflux disease without esophagitis (6) Low back pain Current Visit: No Status: Chronic Qualifiers: (7) Nicotine dependence Current Visit: No Status: Chronic Qualifiers: Nicotine product type: cigarettes (8) Alcohol dependence with uncomplicated withdrawal Current Visit: Yes Status: Acute (9) Arthritis Current Visit: No Status: Chronic (10) Asthma Current Visit: No Status: Chronic Qualifiers: Asthma severity: mild intermittent Asthma complication type: uncomplicated Cleared for Admission S - Detox or Rehab [facility] Level of Care: Medically Managed Detox Regimen/Protocol: Methadone/Valium S Breath Alcohol Content Breath Alcohol Content: 0 Urine Pregancy Test - Result Urine Test Results: Negative- NO Line Present Urine Drug Screen - Results Drug Screen Negative: No Urine Drug Screen Results: THC-Marijuana, [place]-Cocaine, OPI-Opiates, FEN-Fentanyl , BUP-Suboxone
[2018-12-09] MEDS ORDERED: MENTHOL/PHENOL 1 EACH UD MM PRN (10:08)
[2018-12-09] MEDS ORDERED: MAG HYDROX/AL HYDROX/SIMETH 30 ML UNIT-DOSE CUP PO PRN (10:08)
[2018-12-09] MEDS ORDERED: MAGNESIUM CITRATE 300 ML BOTTLE PO PRN (10:08)
[2018-12-09] MEDS ORDERED: MAGNESIUM HYDROX 2400MG/30ML ORAL SUSPENSION 30 ML CUP PO PRN (10:08)
[2018-12-09] MEDS ORDERED: P-EPHED 60MG/TRIPROLIDI 2.5MG TABLET PO PRN (10:08)
[2018-12-09] MEDS ORDERED: NICOTINE POLACRILEX 2 MG GUM BC PRN (10:08)
[2018-12-09] MEDS ORDERED: LOPERAMIDE HCL 2 MG CAPSULE PO PRN (10:08)
[2018-12-09] MEDS ORDERED: IBUPROFEN 400 MG TABLET (FP) PO PRN (10:08)
[2018-12-09] MEDS ORDERED: ACETAMINOPHEN 325 MG TABLET (FP) PO PRN (10:08)
[2018-12-09] MEDS ORDERED: guaiFENesin/D-METHORPHAN HB 10 ML UNIT-DOSE CUPS PO PRN (10:08)
[2018-12-09] MEDS ORDERED: ALBUTEROL SO4 8 GM HFA INHALER IH PRN (10:18)
[2018-12-09] MEDS: diazePAM 5 MG TABLET PO SCH ×2 (18:38→22:38)
[2018-12-09] MEDS ORDERED: METHADONE HCL 10 MG TABLET (FOR DETOX USE ONLY) PO ONE ×2 (18:45→23:00)
[2018-12-09] MEDS ORDERED: diazePAM 5 MG TABLET PO ONE (18:45)
[2018-12-09] MEDS: THIAMINE HCL 100 MG TABLET (FP) PO SCH (22:37)
[2018-12-09] MEDS: cloNIDine HCL 0.1 MG TABLET PO SCH (22:38)
[2018-12-09] MEDS: MELATONIN 5 MG TABLETS PO PRN (22:38)
[2018-12-10] MEDS: diazePAM 5 MG TABLET PO SCH ×3 (07:11→22:27)
[2018-12-10] MEDS ORDERED: METHADONE HCL 10 MG TABLET (FOR DETOX USE ONLY) PO SCH (10:00)
[2018-12-10] MEDS: diazePAM 5 MG TABLET PO PRN (10:13)
[2018-12-10] MEDS: cloNIDine HCL 0.1 MG TABLET PO SCH ×2 (10:14→22:26)
[2018-12-10] MEDS: PRENATAL VITAMINS W/ FOLIC ACID TABLET (FP) PO SCH (10:14)
[2018-12-10] MEDS: NICOTINE 21 MG/24 HOURS TOPICAL PATCH TD SCH (10:15)
[2018-12-10 10:17] LABS: HEMATOCRIT 39.5 % (32.4-45.2); HEMOGLOBIN 12.4 GM/dL (10.7-15.3); MCH 28.1 pg (25.7-33.7); MCHC 31.4 g/dl (32.0-36.0); MEAN CELL VOLUME 89.5 fl (80-96); MEAN PLT VOLUME 9.4 fl (7.5-11.1); PLATELET COUNT 236 K/MM3 (134-434); RBC 4.41 M/mm3 (3.60-5.2); RDW 14.4 % (11.6-15.6); WHITE BLOOD COUNT 6.9 K/mm3 (4.0-10.0)
[2018-12-10 10:37] LABS: ALBUMIN 3.5 g/dl (3.4-5.0); ALK PHOS 111 U/L (45-117); ANION GAP 5 MMOL/L (8-16); BILIRUBIN,TOTAL 0.4 mg/dL (0.2-1); BLOOD UREA NITROGEN 13 mg/dL (7-18); CALCIUM 8.6 mg/dL (8.5-10.1); CHLORIDE 106 mmol/L (98-107); CO2 28 mmol/L (21-32); CREATININE 0.8 mg/dL (0.55-1.3); GLUCOSE,RANDOM 101 mg/dL (74-106); POTASSIUM 4.7 mmol/L (3.5-5.1); SGOT/AST 12 U/L (15-37); SGPT/ALT 13 U/L (13-61); SODIUM 139 mmol/L (136-145); TOT PROT 6.6 g/dl (6.4-8.2)
--- NOTE | 2018-12-10 13:02 | PN ---
[facility] CIWA - CIWA Score Nausea/Vomitin-No Nausea/No Vomiting Muscle Tremors: 3 Anxiety: 3 Agitation: 3 Paroxysmal Sweats: 2 Orientation: 0-Oriented Tacttile Disturbances: 0-None Auditory Disturbances: 0-None Visual Disturbances: 0-None Headache: 0-None Present CIWA-Ar Total Score: 11 S COWS - Scale Resting Pulse: 0= [place] 80 or Below Sweatin=Flushed/Facial Moisture Restless Observation: 1= Difficult to Sit Still Pupil Size: 0= Normal to Room Light Bone or Joint Aches: 2= Severe Diffuse Aches Runny Nose/ Eye Tearin= Nasal Congestion GI Upset > 30mins: 0= None Tremor Observation of Outstretched Hands: 2= Slight Tremor Visible Yawning Observation: 1= 1-2x During Session Anxiety or Irritability: 2=Irritable/Anxious Goose Flesh Skin: 0=Smooth Skin COWS Score: 11 [facility] Progress Note (SOAP) Subjective: chronic back pain sweats shakes agitation irritable Objective: 12/10/18 12:49 Vital Signs Temperature 98.2 F 12/10/18 09:37 Pulse Rate 69 12/10/18 09:37 Respiratory Rate 18 12/10/18 09:37 Blood Pressure 130/70 12/10/18 09:37 O2 Sat by Pulse Oximetry (%) Laboratory Tests 12/10/18 12/10/18 07:00 07:00 WBC 6.9 RBC 4.41 Hgb 12.4 Hct 39.5 MCV 89.5 MCH 28.1 MCHC 31.4 L RDW 14.4 Plt Count 236 MPV 9.4 Sodium 139 Potassium 4.7 Chloride 106 Carbon Dioxide 28 Anion Gap 5 L BUN 13 Creatinine 0.8 Creat Clearance w eGFR > 60 Random Glucose 101 Calcium 8.6 Total Bilirubin 0.4 AST 12 L ALT 13 Alkaline Phosphatase 111 Total Protein 6.6 Albumin 3.5 aaox3 ambulating no acute distress Assessment: 12/10/18 12:49 withdrawal sx Plan: continue detox increase fluids lidocaine patches flexiril prn motrin 800mg
[2018-12-10] MEDS: CYCLOBENZAPRINE HCL 10 MG TABLET (FP) PO PRN ×2 (13:42→22:36)
[2018-12-10] MEDS: LIDOCAINE 5% TOPICAL PATCH TP SCH (14:00)
[2018-12-10] MEDS: THIAMINE HCL 100 MG TABLET (FP) PO SCH (22:25)
[2018-12-10] MEDS: LIDOCAINE PATCH REMOVAL MC SCH (22:27)
[2018-12-10] MEDS: MELATONIN 5 MG TABLETS PO PRN (22:29)
[2018-12-10] MEDS: IBUPROFEN 400 MG TABLET (FP) PO PRN (22:37)
[2018-12-11] MEDS: IBUPROFEN 400 MG TABLET (FP) PO PRN (06:31)
[2018-12-11] MEDS: PRENATAL VITAMINS W/ FOLIC ACID TABLET (FP) PO SCH (10:16)
[2018-12-11] MEDS: diazePAM 5 MG TABLET PO SCH ×2 (10:16→22:16)
[2018-12-11] MEDS: METHADONE HCL 5 MG TABLET (FOR DETOX USE ONLY) PO SCH (10:16)
[2018-12-11] MEDS: LIDOCAINE 5% TOPICAL PATCH TP SCH (10:17)
[2018-12-11] MEDS: cloNIDine HCL 0.1 MG TABLET PO SCH ×2 (10:17→22:16)
[2018-12-11] MEDS: NICOTINE 21 MG/24 HOURS TOPICAL PATCH TD SCH (10:17)
[2018-12-11] MEDS: diazePAM 5 MG TABLET PO PRN (12:30)
--- NOTE | 2018-12-11 18:36 | PN ---
[facility] CIWA - CIWA Score Nausea/Vomitin-No Nausea/No Vomiting Muscle Tremors: 3 Anxiety: 5 Agitation: 5 Paroxysmal Sweats: 2 Orientation: 0-Oriented Tacttile Disturbances: 0-None Auditory Disturbances: 0-None Visual Disturbances: 0-None Headache: 0-None Present CIWA-Ar Total Score: 15 S COWS - Scale Resting Pulse: 0= [place] 80 or Below Sweatin= Chills/Flushing Restless Observation: 5= Unable to Sit Still Pupil Size: 0= Normal to Room Light Bone or Joint Aches: 1= Mild Discomfort Runny Nose/ Eye Tearin= Nasal Congestion GI Upset > 30mins: 0= None Tremor Observation of Outstretched Hands: 2= Slight Tremor Visible Yawning Observation: 0= None Anxiety or Irritability: 4=Extreme Anxiety Goose Flesh Skin: 0=Smooth Skin COWS Score: 14 [facility] Progress Note (SOAP) Subjective: requesting vistaril requesting psych MD for "my psych meds" sweats Objective: 12/11/18 18:36 A & O x 3 ambulating steadily and frequently on unit anxious Vital Signs Temperature 98.2 F 12/11/18 17:22 Pulse Rate 77 12/11/18 17:22 Respiratory Rate 18 12/11/18 17:22 Blood Pressure 106/58 L 12/11/18 17:22 O2 Sat by Pulse Oximetry (%) Laboratory Last Values WBC 6.9 K/mm3 (4.0-10.0) 12/10/18 07:00 RBC 4.41 M/mm3 (3.60-5.2) 12/10/18 07:00 Hgb 12.4 GM/dL (10.7-15.3) 12/10/18 07:00 Hct 39.5 % (32.4-45.2) 12/10/18 07:00 MCV 89.5 fl (80-96) 12/10/18 07:00 MCH 28.1 pg (25.7-33.7) 12/10/18 07:00 MCHC 31.4 g/dl (32.0-36.0) L 12/10/18 07:00 RDW 14.4 % (11.6-15.6) 12/10/18 07:00 Plt Count 236 K/MM3 (134-434) 12/10/18 07:00 MPV 9.4 fl (7.5-11.1) 12/10/18 07:00 Sodium 139 mmol/L (136-145) 12/10/18 07:00 Potassium 4.7 mmol/L (3.5-5.1) 12/10/18 07:00 Chloride 106 mmol/L (98-107) 12/10/18 07:00 Carbon Dioxide 28 mmol/L (21-32) 12/10/18 07:00 Anion Gap 5 MMOL/L (8-16) L 12/10/18 07:00 BUN 13 mg/dL (7-18) 12/10/18 07:00 Creatinine 0.8 mg/dL (0.55-1.3) 12/10/18 07:00 Creat Clearance w eGFR > 60 (>60) 12/10/18 07:00 Random Glucose 101 mg/dL (74-106) 12/10/18 07:00 Calcium 8.6 mg/dL (8.5-10.1) 12/10/18 07:00 Total Bilirubin 0.4 mg/dL (0.2-1) 12/10/18 07:00 AST 12 U/L (15-37) L 12/10/18 07:00 ALT 13 U/L (13-61) 12/10/18 07:00 Alkaline Phosphatase 111 U/L (45-117) 12/10/18 07:00 Total Protein 6.6 g/dl (6.4-8.2) 12/10/18 07:00 Albumin 3.5 g/dl (3.4-5.0) 12/10/18 07:00 RPR Titer Nonreactive (NONREACTIVE) 12/10/18 07:00 Assessment: 12/11/18 18:37 withdrawal sx Plan: continue detox explained to pt that she has valium and clonidine ordered which will help with her anxiety hence no need for vistaril -verbalized understanding psych put in psych orders
[2018-12-11] MEDS: THIAMINE HCL 100 MG TABLET (FP) PO SCH (22:16)
[2018-12-11] MEDS: QUEtiapine FUMARATE 100 MG TABLET (FP) PO SCH (22:17)
[2018-12-11] MEDS: LIDOCAINE PATCH REMOVAL MC SCH (22:17)
[2018-12-12] MEDS: IBUPROFEN 400 MG TABLET (FP) PO PRN (05:57)
[2018-12-12] MEDS: CYCLOBENZAPRINE HCL 10 MG TABLET (FP) PO PRN ×2 (05:58→22:15)
--- NOTE | 2018-12-12 08:52 | PN ---
S Progress Note (SOAP) Subjective: patient requests to see a psychiatrist for zoloft wellbutrim that she taking daily for her depression patient reported that she is taking buspar 10 mg po tid and zoloft [address] po daily [address] julien on 11/10 and 11/08 patient's preferred pharmacy open at 10 am [phone] the fiction and nonfiction prose writer spoke with the pharmacist that zoloft 100 mg po daily buspar 10 mg po tid and seroquel 50 mg am 100 mg hs last filled 30 days 11/08/18 encourage the patient continue follow up with Dr Julien body aches restlessness anxiety tremor sweating Objective: 12/12/18 15:07 Vital Signs Temperature 97.9 F 12/12/18 14:57 Pulse Rate 85 12/12/18 14:57 Respiratory Rate 18 12/12/18 14:57 Blood Pressure 132/59 L 12/12/18 14:57 O2 Sat by Pulse Oximetry (%) Laboratory Last Values WBC 6.9 K/mm3 (4.0-10.0) 12/10/18 07:00 RBC 4.41 M/mm3 (3.60-5.2) 12/10/18 07:00 Hgb 12.4 GM/dL (10.7-15.3) 12/10/18 07:00 Hct 39.5 % (32.4-45.2) 12/10/18 07:00 MCV 89.5 fl (80-96) 12/10/18 07:00 MCH 28.1 pg (25.7-33.7) 12/10/18 07:00 MCHC 31.4 g/dl (32.0-36.0) L 12/10/18 07:00 RDW 14.4 % (11.6-15.6) 12/10/18 07:00 Plt Count 236 K/MM3 (134-434) 12/10/18 07:00 MPV 9.4 fl (7.5-11.1) 12/10/18 07:00 Sodium 139 mmol/L (136-145) 12/10/18 07:00 Potassium 4.7 mmol/L (3.5-5.1) 12/10/18 07:00 Chloride 106 mmol/L (98-107) 12/10/18 07:00 Carbon Dioxide 28 mmol/L (21-32) 12/10/18 07:00 Anion Gap 5 MMOL/L (8-16) L 12/10/18 07:00 BUN 13 mg/dL (7-18) 12/10/18 07:00 Creatinine 0.8 mg/dL (0.55-1.3) 12/10/18 07:00 Creat Clearance w eGFR > 60 (>60) 12/10/18 07:00 Random Glucose 101 mg/dL (74-106) 12/10/18 07:00 Calcium 8.6 mg/dL (8.5-10.1) 12/10/18 07:00 Total Bilirubin 0.4 mg/dL (0.2-1) 12/10/18 07:00 AST 12 U/L (15-37) L 12/10/18 07:00 ALT 13 U/L (13-61) 12/10/18 07:00 Alkaline Phosphatase 111 U/L (45-117) 12/10/18 07:00 Total Protein 6.6 g/dl (6.4-8.2) 12/10/18 07:00 Albumin 3.5 g/dl (3.4-5.0) 12/10/18 07:00 RPR Titer Nonreactive (NONREACTIVE) 12/10/18 07:00 lab noted Assessment: 12/12/18 15:08 withdrawal sx Plan: continue detox
[2018-12-12] MEDS: METHADONE HCL 5 MG TABLET (FOR DETOX USE ONLY) PO SCH (11:00)
[2018-12-12] MEDS: diazePAM 5 MG TABLET PO SCH ×2 (11:00→22:16)
[2018-12-12] MEDS: cloNIDine HCL 0.1 MG TABLET PO SCH ×2 (11:00→22:15)
[2018-12-12] MEDS: NICOTINE 21 MG/24 HOURS TOPICAL PATCH TD SCH (11:01)
[2018-12-12] MEDS: LIDOCAINE 5% TOPICAL PATCH TP SCH (11:01)
[2018-12-12] MEDS: PRENATAL VITAMINS W/ FOLIC ACID TABLET (FP) PO SCH (11:01)
[2018-12-12] MEDS: SERTRALINE HCL 50 MG TABLET (FP) PO SCH (11:03)
[2018-12-12] MEDS: QUEtiapine FUMARATE 50 MG TABLET PO SCH (11:03)
[2018-12-12] MEDS: busPIRone HCL 10 MG TABLET (FP) PO SCH ×2 (14:57→22:15)
[2018-12-12] MEDS ORDERED: QUEtiapine FUMARATE 100 MG TABLET (FP) PO SCH (22:00)
[2018-12-12] MEDS: QUEtiapine FUMARATE 100 MG TABLET (FP) PO SCH (22:16)
[2018-12-12] MEDS: THIAMINE HCL 100 MG TABLET (FP) PO SCH (22:16)
[2018-12-12] MEDS: SODIUM CHLORIDE NASAL SPRAY 44 ML BOTTLE NS SCH (22:16)
[2018-12-12] MEDS: LIDOCAINE PATCH REMOVAL MC SCH (22:17)
[2018-12-13] MEDS: busPIRone HCL 10 MG TABLET (FP) PO SCH (06:38)
[2018-12-13] MEDS: CYCLOBENZAPRINE HCL 10 MG TABLET (FP) PO PRN (06:41)
[2018-12-13] MEDS: IBUPROFEN 400 MG TABLET (FP) PO PRN (06:41)
--- NOTE | 2018-12-13 07:37 | CONSULT ---
[facility] Psychiatric Consult - Data Date of interview: 12/13/18 Admission source: [facility] Identifying data: This is a 48 years old female, single mother of six, uhnemployed, homeless, om [place] support withy no psychiatric hospitalization history, with history of Bipolar Disorder and OCD, seeking dddor detox reporting wityhdrawal symprtoms from Alcohol. Patient reports history of abusing heroin,alcohol,cocaine,marijuana. Substance Abuse History: Patient reports long history of abuse, dependence of Cannabis, Alcohol, Crack, Heroin nad Nicotine. Smoking history: Current every day smoker. Have you smoked in the past 12 months: Yes. Aproximately how many cigarettes per day: 8. Cigars Per Day: 0. Hx Chewing Tobacco Use: No. Initiated information on smoking cessation: Yes. 'Breaking Loose' booklet given : 12/09/18. - Substances Abused. Heroin. Route: Inhalation. Frequency: Daily. Amount used: 7-8 BAGS. Age of first use: 30. Date of Last Use: . Cocaine. Route: Inhalation. Frequency: 1-2 times per week. Amount used: $40. Age of first use: 26. Date of Last Use: 11/18/18. Crack. Route : Smoking. Frequency: Daily. Amount used: $300-$400. Age of first use: 16. Date of Last Use: 12/08/18. Marijuana/Hashish. Route: Smoking. Frequency: Daily. Amount used: 1 BAG. Age of first use: 13. Date of Last Use: 12/09/18 Medical History: LBP, Asthma, Anemis history, Cercical Cancer history, GERD, Psychiatric History: Patient reports history of Bipolar Disorder and OCD. [facility]ospital[facility] history, history of suyicidal , homicidal [id number] as well. Patient reports taking prior to admission: Zoloft 100mg poqd. Seroquel 50mg poqd, 100mg po qhs. Buspar 10mg po tid Physical/Sexual Abuse/Trauma History: Denies Additional Comment: Zoloft 100mg poqd. Seroquel 50mg poqd, 100mg po qhs. Buspar 10mg po tid Mental Status Exam - Mental Status Exam Alert and Oriented to: Person Cognitive Function: Fair Patient Appearance: Unkempt Mood: Anxious Affect: Mood Congruent Patient Behavior: Cooperative Speech Pattern: Appropriate Voice Loudness: Normal Thought Process: Goal Oriented Thought Disorder: Being Controlled Hallucinations: Denies Suicidal Ideation: Denies Homicidal Ideation: Denies Insight/Judgement: Fair Sleep: Difficulty falling asleep Appetite: Weight gain Muscle strength/Tone: Mild Hypertonicity Gait/Station: Shuffling Additional Comments: Zoloft 100mg poqd. Seroquel 50mg poqd, 100mg po qhs. Buspar 10mg po tid Psychiatric Findings - Problem List ([place] 1, 2,3) (1) Alcohol dependence with uncomplicated withdrawal Current Visit: Yes Status: Acute (2) Opioid dependence with withdrawal Current Visit: Yes Status: Acute (3) Alcohol dependence Current Visit: No Status: Chronic Qualifiers: Substance use status: uncomplicated Qualified Code(s): F10.20 - Alcohol dependence, uncomplicated (4) Arthritis Current Visit: No Status: Chronic (5) Asthma Current Visit: No Status: Chronic Qualifiers: Asthma severity: mild intermittent Asthma complication type: uncomplicated (6) Bipolar disorder Current Visit: No Status: Chronic (7) Cannabis dependence Current Visit: No Status: Chronic (8) Cervical cancer Current Visit: No Status: Chronic (9) GERD (gastroesophageal reflux disease) Current Visit: No Status: Chronic Qualifiers: Esophagitis presence: without esophagitis Qualified Code(s): K21.9 - Gastro -esophageal reflux disease without esophagitis (10) Low back pain Current Visit: No Status: Chronic Qualifiers: (11) Nicotine dependence Current Visit: No Status: Chronic Qualifiers: Nicotine product type: cigarettes (12) Substance induced mood disorder Current Visit: No Status: Chronic (13) Substance or medication-induced sleep disorder, insomnia type Current Visit: No Status: Chronic (14) History of OCD (obsessive compulsive disorder) Current Visit: No Status: Suspected (15) History of anemia Current Visit: No Status: Suspected - Initial Treatment Plan Initial Treatment Plan: Zoloft 100mg poqd. Seroquel 50mg poqd, 100mg po qhs. Buspar 10mg po tid
--- NOTE | 2018-12-13 08:55 | DS ---
[facility] Detox Discharge Summary Admission Date: 12/09/18 Discharge Date: 12/13/18 - History Present History: Alcohol Dependence, Opioid Dependence - Physical Exam Results Vital Signs: Vital Signs Temperature 97.9 F 12/13/18 06:06 Pulse Rate 70 12/13/18 06:06 Respiratory Rate 18 12/13/18 06:06 Blood Pressure 115/66 12/13/18 06:06 O2 Sat by Pulse Oximetry (%) - Treatment Hospital Course: Detox Protocol Followed, Detoxed Safely, Responded well, Discharged Condition Good, Rehab Referral Accepted - Medication Discharge Medications: Ambulatory Orders Omeprazole 40 mg PO DAILY 02/27/17 Albuterol Sulfate Inhaler - [Ventolin HFA Inhaler -] 2 inh PO Q4H PRN #1 inhaler 10/10/18 cloNIDine HCL [Catapres -] 0.1 mg PO BID #14 tablet 10/10/18 Quetiapine Fumarate [Seroquel -] 50 mg PO DAILY #30 tablet 11/08/18 Quetiapine Fumarate [Seroquel] 100 mg PO HS #30 tablet 11/08/18 Sertraline HCl [Zoloft -] 100 mg PO DAILY #30 tablet 11/08/18 Buspirone HCl [Buspar -] 10 mg PO TID #90 tablet 12/13/18 Quetiapine Fumarate [Seroquel -] 50 mg PO DAILY #30 tablet 12/13/18 Quetiapine Fumarate [Seroquel] 100 mg PO HS #30 tablet 12/13/18 Sertraline HCl [Zoloft -] 100 mg PO DAILY #30 tablet 12/13/18 - AMA Did Patient Leave Against Medical Advice: No (referred to [id number] )
[2018-12-13 09:26] VITALS: BP 112/58; PULSE 82; TEMP 97.7
[2018-12-13] MEDS ORDERED: diazePAM 5 MG TABLET PO SCH (10:00)
[2018-12-13] MEDS ORDERED: METHADONE HCL 10 MG TABLET (FOR DETOX USE ONLY) PO SCH (10:00)
[2018-12-13] MEDS: SERTRALINE HCL 50 MG TABLET (FP) PO SCH (10:34)
[2018-12-13] MEDS: QUEtiapine FUMARATE 50 MG TABLET PO SCH (10:34)
[2018-12-13] MEDS: PRENATAL VITAMINS W/ FOLIC ACID TABLET (FP) PO SCH (10:34)
[2018-12-13] MEDS: NICOTINE 21 MG/24 HOURS TOPICAL PATCH TD SCH (10:35)
[2018-12-13] MEDS: cloNIDine HCL 0.1 MG TABLET PO SCH (10:35)
[2018-12-13] MEDS: SODIUM CHLORIDE NASAL SPRAY 44 ML BOTTLE NS SCH (10:35)
[2018-12-13] MEDS: LIDOCAINE 5% TOPICAL PATCH TP SCH (10:35)
[2018-12-13] MEDS ORDERED: PANTOPRAZOLE 40 MG TABLET (FP) PO ONE (10:45)
[2018-12-14] MEDS ORDERED: METHADONE HCL 5 MG TABLET (FOR DETOX USE ONLY) PO SCH (06:00)
[2018-12-14] MEDS ORDERED: PANTOPRAZOLE 40 MG TABLET (FP) PO SCH (10:00)
== END 2018-12-13 10:44 | disposition home or self-care (01) | DRG 773 ==
LOC: YASAS 08:12 → Y6N 17:50
PROC: HZ2ZZZZ Detoxification Services for Substance Abuse Treatment (ICD-10-PCS; principal; 2018-12-09)
DX: F11.23 Opioid dependence with withdrawal (principal); F10.230 Alcohol dependence with withdrawal, uncomplicated; F14.20 Cocaine dependence, uncomplicated; F12.20 Cannabis dependence, uncomplicated; F17.210 Nicotine dependence, cigarettes, uncomplicated; F31.9 Bipolar disorder, unspecified; F19.24 Other psychoactive substance dependence with psychoactive substance-induced mood disorder; F19.282 Other psychoactive substance dependence with psychoactive substance-induced sleep disorder; J45.909 Unspecified asthma, uncomplicated; M19.90 Unspecified osteoarthritis, unspecified site; K21.9 Gastro-esophageal reflux disease without esophagitis; M54.5 Low back pain; Z85.41 Personal history of malignant neoplasm of cervix uteri
CPT/HCPCS: 36415; 80053; 85027; 86593; J0735

== ENCOUNTER 2019-01-18 13:49 | Inpatient (IN) | payer OTHER ==
[2019-01-18 15:36] VITALS: BMI 30.4
--- NOTE | 2019-01-18 17:55 | HP ---
COWS - Scale Resting Pulse: 1= [place] 81-100 Sweatin=Flushed/Facial Moisture Restless Observation: 1= Difficult to Sit Still Pupil Size: 1= Pupils >than Normal Bone or Joint Aches: 2= Severe Diffuse Aches Runny Nose/ Eye Tearin= Runny Nose/Eyes GI Upset > 30mins: 2= Nausea/Diarrhea Tremor Observation: 1= Tremor [place], Not Seen Yawning Observation: 2= >3x During Session Anxiety or Irritability: 1=Feels Anxious/Irritable Goose Flesh Skin: 0=Smooth Skin COWS Score: 15 CIWA Score - Admission Criteria [facility]AS Guidelines: Admission for Medically Managed Detox: Requires at least one of the followin. CIWA greater than 12 2. Seizures within the past 24 hours 3. Delirium tremens within the past 24 hours 4. Hallucinations within the past 24 hours 5. Acute intervention needed for co occurring medical disorder 6. Acute intervention needed for co occurring psychiatric disorder 7. Severe withdrawal that cannot be handled at a lower level of care (continued vomiting, continued diarrhea, abnormal vital signs) requiring intravenous medication and/or fluids 8. Admission ROS [facility] Chief Complaint: " heroin detox, i hurt so bad" Allergies/Adverse Reactions: Allergies Allergy/AdvReac Type Severity Reaction Status Date / Time chlordiazepoxide Allergy Verified 12/09/18 18:06 [From Librium] librium Allergy Uncoded 12/09/18 10:28 History of Present Illness: Patient is a 48 year old female with heroin (nasal), cocaine, marijuana dependence is here seeking detox,extensive history of polysubstance dependence, with multiple admissions, self referred. last detox tx [facility] 12/09/18 -12/13/18. Denies hx of overdose. Denies hx of seizure or blackouts. PMHX: Sciatica b/l, asthma, HTN, bipolar disorder ,depression. Patient is non-compliant with meds. Reports no significant period period of sobriety. Reports librium allergies reports taking Valium without any interaction. Exam Limitations: No Limitations - Ebola screening Have you traveled outside of the country in the last 21 days: No Have you had contact with anyone from an Ebola affected area: No Have you been sick,other than usual withdrawal symptoms: No Do you have a fever: No - Review of Systems Constitutional: Loss of Appetite, Changes in sleep, Weakness, Unintentional Wgt. Loss EENT: reports: Nose Congestion, Other (teary eyes) Respiratory: reports: No Symptoms reported Cardiac: reports: Palpitations GI: reports: Diarrhea, Nausea, Poor Fluid Intake, Abdominal cramping : reports: No Symptoms Reported Musculoskeletal: reports: Back Pain, Joint Pain Integumentary: reports: No Symptoms Reported Neuro: reports: Numbness (hands and feet b/l), Weakness Endocrine: reports: Increased Thirst Hematology: reports: Anemia Psychiatric: reports: Orientated x3, Anxious Other Systems: Reviewed and Negative Patient History - Patient Medical History Hx Anemia: Yes (no med) Hx Asthma: No Hx Chronic Obstructive Pulmonary Disease (COPD): No Hx Cancer: Yes (cervical ca follow up with own nursing care attendant) Hx Cardiac Disorders: No Hx Congestive Heart Failure: No Hx Hypertension: No Hx Hypercholesterolemia: No Hx Pacemaker: No HX Cerebrovascular Accident: No Hx Seizures: No Hx Dementia: No Hx Diabetes: No Hx Gastrointestinal Disorders: No Hx Liver Disease: No Hx Genitourinary Disorders: No Hx Sexually Transmitted Disorders: No Hx Renal Disease (ESRD): No Hx Thyroid Disease: No Hx Human Immunodeficiency Virus (HIV): No (NEGATIVE HX last 08/17) Hx Hepatitis C: No Hx Depression: Yes Hx Suicide Attempt: No Hx Bipolar Disorder: Yes Hx Schizophrenia: No - Patient Surgical History Past Surgical History: Yes Hx Neurologic Surgery: No Hx Cataract Extraction: No Hx Cardiac Surgery: No Hx Lung Surgery: No Hx Breast Surgery: No Hx Breast Biopsy: No Hx Abdominal Surgery: No Hx Appendectomy: No Hx Cholecystectomy: Yes (lap in 2006) Hx Genitourinary Surgery: Yes (carcinoma in situ s/p conization in 2013) Hx Section: No Hx Orthopedic Surgery: No Other Surgical History: Pt had a culposcopy. Anesthesia Reaction: No - PPD History Previous Implant?: No Documented Results: Negative w/proof Date: 10/08/18 Results: NEGATIVE PPD to be Administered?: No - Reproductive History Patient is a Female of Child Bearing Age (11 -55 yrs old): Yes Last Menstrual Period: 12/25/18 Patient : No - Smoking Cessation Smoking history: Current every day smoker Have you smoked in the past 12 months: Yes Aproximately how many cigarettes per day: 10 Cigars Per Day: 0 Hx Chewing Tobacco Use: No Initiated information on smoking cessation: Yes 'Breaking Loose' booklet given: 01/18/19 - Substance & Tx. History Hx Alcohol Use: Yes - Substances Abused Heroin Route: Inhalation Frequency: Daily Amount used: 6 - 7 Age of first use: 29 Date of Last Use: 01/18/19 Cocaine Route: Inhalation Frequency: Daily Amount used: $100 Age of first use: 32 Date of Last Use: 01/18/19 Family Disease History - Family Disease History Family Disease History: Heart Disease: Grandparent, Other: Father ( - alcohol), Mother (arthritis) Admission Physical Exam S - Vital Signs Vital Signs: Vital Signs - 24 hr 01/18/19 15:34 Temperature 96 F L Pulse Rate 88 Respiratory 20 Rate Blood Pressure 136/100 - Physical General Appearance: Yes: Disheveled, Moderate Distress, Sweating, Anxious HEENTM: Yes: EOMI, Hearing grossly Normal, Normal ENT Inspection, Normocephalic , Normal Voice, Pharynx Normal, Tm's normal, Other (dry mucous memebranes) Respiratory: Yes: Chest Non-Tender, Lungs Clear, Normal Breath Sounds, No Respiratory Distress, No Accessory Muscle Use Neck: Yes: Within Normal Limits Breast: Yes: Breast Exam Deferred Cardiology: Yes: Regular Rhythm, Regular Rate Abdominal: Yes: Normal Bowel Sounds, Non Tender, Flat, Soft Genitourinary: Yes: Within Normal Limits Back: Yes: Normal Inspection Musculoskeletal: Yes: full range of Motion, Gait Steady, Pelvis Stable, Back pain Extremities: Yes: Normal Capillary Refill, Normal Inspection, Normal Range of Motion Neurological: Yes: claim representative II-XII NML intact, Fully Oriented, Alert, Motor Strength 5/5, Depressed Affect Integumentary: Yes: Normal Color, Warm, Moist Lymphatic: Yes: Within Normal Limits - Diagnostic (1) Opioid dependence with withdrawal Current Visit: Yes Status: Acute (2) Sciatica Current Visit: Yes Status: Chronic Qualifiers: Laterality: bilateral Qualified Code(s): M54.31 - Sciatica, right side; M54.32 - Sciatica, left side (3) Arthritis Current Visit: Yes Status: Chronic (4) Asthma Current Visit: Yes Status: Chronic Qualifiers: Asthma severity: mild Asthma complication type: uncomplicated (5) Cocaine dependence Current Visit: Yes Status: Chronic Qualifiers: Substance use status: uncomplicated Qualified Code(s): F14.20 - Cocaine dependence, uncomplicated (6) GERD (gastroesophageal reflux disease) Current Visit: Yes Status: Chronic Qualifiers: Esophagitis presence: without esophagitis Qualified Code(s): K21.9 - Gastro -esophageal reflux disease without esophagitis (7) Nicotine dependence Current Visit: Yes Status: Chronic Qualifiers: Nicotine product type: cigarettes Cleared for Admission S - Detox or Rehab [facility] Level of Care: Medically Managed Detox Regimen/Protocol: Methadone S Breath Alcohol Content Breath Alcohol Content: 0 Urine Pregancy Test - Result Urine Test Results: Negative- NO Line Present Urine Drug Screen - Results Drug Screen Negative: No Urine Drug Screen Results: THC-Marijuana, [place]-Cocaine, OPI-Opiates Inpatient Rehab Admission - Rehab Decision to Admit Inpatient rehab admission?: No
[2019-01-18] MEDS ORDERED: MENTHOL/PHENOL 1 EACH UD MM PRN (17:59)
[2019-01-18] MEDS ORDERED: MAGNESIUM HYDROX 2400MG/30ML ORAL SUSPENSION 30 ML CUP PO PRN (17:59)
[2019-01-18] MEDS ORDERED: MAG HYDROX/AL HYDROX/SIMETH 30 ML UNIT-DOSE CUP PO PRN (17:59)
[2019-01-18] MEDS ORDERED: LOPERAMIDE HCL 2 MG CAPSULE PO PRN (17:59)
[2019-01-18] MEDS ORDERED: P-EPHED 60MG/TRIPROLIDI 2.5MG TABLET PO PRN (17:59)
[2019-01-18] MEDS ORDERED: guaiFENesin/D-METHORPHAN HB 10 ML UNIT-DOSE CUPS PO PRN (17:59)
[2019-01-18] MEDS ORDERED: MAGNESIUM CITRATE 300 ML BOTTLE PO PRN (17:59)
[2019-01-18] MEDS ORDERED: NICOTINE POLACRILEX 2 MG GUM BC PRN (17:59)
[2019-01-18] MEDS ORDERED: ALBUTEROL SO4 8 GM HFA INHALER IH PRN (18:08)
[2019-01-18] MEDS ORDERED: METHADONE HCL 10 MG TABLET (FOR DETOX USE ONLY) PO ONE ×2 (18:45→23:00)
[2019-01-18] MEDS: diazePAM 5 MG TABLET PO PRN (20:33)
[2019-01-18] MEDS ORDERED: MELATONIN 5 MG TABLETS PO PRN (22:00)
[2019-01-18] MEDS ORDERED: cloNIDine HCL 0.1 MG TABLET PO SCH (22:00)
[2019-01-18] MEDS: cloNIDine HCL 0.1 MG TABLET PO SCH (22:41)
[2019-01-18] MEDS: THIAMINE HCL 100 MG TABLET (FP) PO SCH (22:42)
[2019-01-19] MEDS ORDERED: METHADONE HCL 10 MG TABLET (FOR DETOX USE ONLY) PO ONE (10:00)
--- NOTE | 2019-01-19 10:02 | CONSULT ---
[facility] Psychiatric Consult - Data Date of interview: 01/19/19 Admission source: [facility] Identifying data: This is one of the multiple admissions to [facility] for this 48 years old H female Psychiatric Findings - Problem List ([place] 1, 2,3) (1) Opioid dependence with withdrawal Current Visit: Yes Status: Chronic (2) Arthritis Current Visit: Yes Status: Chronic (3) Asthma Current Visit: Yes Status: Chronic Qualifiers: Asthma severity: mild Asthma complication type: uncomplicated (4) Cocaine dependence Current Visit: Yes Status: Chronic Qualifiers: Substance use status: uncomplicated Qualified Code(s): F14.20 - Cocaine dependence, uncomplicated (5) GERD (gastroesophageal reflux disease) Current Visit: Yes Status: Chronic Qualifiers: Esophagitis presence: without esophagitis Qualified Code(s): K21.9 - Gastro -esophageal reflux disease without esophagitis (6) Nicotine dependence Current Visit: Yes Status: Chronic Qualifiers: Nicotine product type: cigarettes (7) History of anemia Current Visit: Yes Status: Chronic - Initial Treatment Plan Initial Treatment Plan: Seroquel 100 mg po hs and 50 mg po daily,Buspar 10 mg po bid.
[2019-01-19] MEDS: diazePAM 5 MG TABLET PO PRN ×2 (10:31→14:37)
[2019-01-19] MEDS: PRENATAL VITAMINS W/ FOLIC ACID TABLET (FP) PO SCH (10:31)
[2019-01-19] MEDS: cloNIDine HCL 0.1 MG TABLET PO SCH ×2 (10:31→22:07)
[2019-01-19] MEDS: NICOTINE 21 MG/24 HOURS TOPICAL PATCH TD SCH (10:32)
--- NOTE | 2019-01-19 10:51 | PN ---
[facility] COWS - Scale Resting Pulse: 0= [place] 80 or Below Sweatin= Chills/Flushing Restless Observation: 1= Difficult to Sit Still Pupil Size: 1= Pupils >than Normal Bone or Joint Aches: 2= Severe Diffuse Aches Runny Nose/ Eye Tearin= Nasal Congestion GI Upset > 30mins: 1= Stomach Cramp Tremor Observation of Outstretched Hands: 1= Tremor [place], Not Seen Yawning Observation: 1= 1-2x During Session Anxiety or Irritability: 1=Feels Anxious/Irritable Goose Flesh Skin: 3=Piloerection COWS Score: 13 [facility] Progress Note (SOAP) Subjective: body aches muscle cramping joints pain restlessness tremor Objective: 01/19/19 10:50 Vital Signs Temperature 96 F L 01/19/19 09:09 Pulse Rate 83 01/19/19 09:09 Respiratory Rate 18 01/19/19 09:09 Blood Pressure 115/66 01/19/19 09:09 O2 Sat by Pulse Oximetry (%) lab pending Assessment: 01/19/19 10:50 opiate withdrawal sx discuss medication assisted treatment program encourage 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
[2019-01-19] MEDS: busPIRone HCL 10 MG TABLET (FP) PO SCH ×2 (12:34→22:08)
[2019-01-19] MEDS: QUEtiapine FUMARATE 50 MG TABLET PO SCH (12:34)
[2019-01-19] MEDS: SERTRALINE HCL 50 MG TABLET (FP) PO SCH (12:35)
[2019-01-19 14:17] LABS: HEMATOCRIT 37.2 % (32.4-45.2); HEMOGLOBIN 12.5 GM/dL (10.7-15.3); MCH 29.6 pg (25.7-33.7); MCHC 33.7 g/dl (32.0-36.0); MEAN CELL VOLUME 87.9 fl (80-96); MEAN PLT VOLUME 9.4 fl (7.5-11.1); PLATELET COUNT 266 K/MM3 (134-434); RBC 4.24 M/mm3 (3.60-5.2); WHITE BLOOD COUNT 8.1 K/mm3 (4.0-10.0)
[2019-01-19 14:32] LABS: ALBUMIN 3.4 g/dl (3.4-5.0); ALK PHOS 119 U/L (45-117); ANION GAP 5 MMOL/L (8-16); BILIRUBIN,TOTAL 0.2 mg/dL (0.2-1); BLOOD UREA NITROGEN 16 mg/dL (7-18); CALCIUM 9.2 mg/dL (8.5-10.1); CHLORIDE 107 mmol/L (98-107); CO2 28 mmol/L (21-32); CREATININE 0.7 mg/dL (0.55-1.3); GLUCOSE,RANDOM 103 mg/dL (74-106); POTASSIUM 4.6 mmol/L (3.5-5.1); SGOT/AST 10 U/L (15-37); SGPT/ALT 12 U/L (13-61); SODIUM 140 mmol/L (136-145); TOT PROT 6.8 g/dl (6.4-8.2)
[2019-01-19] MEDS: THIAMINE HCL 100 MG TABLET (FP) PO SCH (22:06)
[2019-01-19] MEDS: QUEtiapine FUMARATE 100 MG TABLET (FP) PO SCH (22:07)
[2019-01-19] MEDS: IBUPROFEN 400 MG TABLET (FP) PO PRN (22:29)
[2019-01-20] MEDS: IBUPROFEN 400 MG TABLET (FP) PO PRN (05:59)
[2019-01-20] MEDS: PRENATAL VITAMINS W/ FOLIC ACID TABLET (FP) PO SCH (10:30)
[2019-01-20] MEDS: busPIRone HCL 10 MG TABLET (FP) PO SCH ×2 (10:30→22:18)
[2019-01-20] MEDS: cloNIDine HCL 0.1 MG TABLET PO SCH ×2 (10:30→22:18)
[2019-01-20] MEDS: LIDOCAINE 5% TOPICAL PATCH TP SCH (10:30)
[2019-01-20] MEDS: QUEtiapine FUMARATE 50 MG TABLET PO SCH (10:31)
[2019-01-20] MEDS: SERTRALINE HCL 50 MG TABLET (FP) PO SCH (10:31)
[2019-01-20] MEDS: PANTOPRAZOLE 20 MG TABLET (FP) PO SCH (10:31)
[2019-01-20] MEDS: NICOTINE 21 MG/24 HOURS TOPICAL PATCH TD SCH (10:31)
[2019-01-20] MEDS: CYCLOBENZAPRINE HCL 10 MG TABLET (FP) PO PRN (10:35)
[2019-01-20] MEDS: METHADONE HCL 5 MG TABLET (FOR DETOX USE ONLY) PO ONE (10:37)
--- NOTE | 2019-01-20 13:26 | PN ---
[facility] COWS - Scale Resting Pulse: 0= [place] 80 or Below Sweatin= Chills/Flushing Restless Observation: 0= Sits Still Pupil Size: 0= Normal to Room Light Bone or Joint Aches: 2= Severe Diffuse Aches Runny Nose/ Eye Tearin= Nasal Congestion GI Upset > 30mins: 1= Stomach Cramp Tremor Observation of Outstretched Hands: 2= Slight Tremor Visible Yawning Observation: 1= 1-2x During Session Anxiety or Irritability: 1=Feels Anxious/Irritable Goose Flesh Skin: 0=Smooth Skin COWS Score: 9 [facility] Progress Note (SOAP) Subjective: body aches muscle cramping limited toleration to solid food Objective: 01/20/19 13:27 Vital Signs Temperature 97.4 F L 01/20/19 09:39 Pulse Rate 78 01/20/19 09:39 Respiratory Rate 20 01/20/19 09:39 Blood Pressure 105/58 L 01/20/19 09:39 O2 Sat by Pulse Oximetry (%) Laboratory Last Values WBC 8.1 K/mm3 (4.0-10.0) 01/19/19 10:30 RBC 4.24 M/mm3 (3.60-5.2) 01/19/19 10:30 Hgb 12.5 GM/dL (10.7-15.3) 01/19/19 10:30 Hct 37.2 % (32.4-45.2) 01/19/19 10:30 MCV 87.9 fl (80-96) 01/19/19 10:30 MCH 29.6 pg (25.7-33.7) 01/19/19 10:30 MCHC 33.7 g/dl (32.0-36.0) 01/19/19 10:30 RDW 14.0 % (11.6-15.6) 01/19/19 10:30 Plt Count 266 K/MM3 (134-434) 01/19/19 10:30 MPV 9.4 fl (7.5-11.1) 01/19/19 10:30 Sodium 140 mmol/L (136-145) 01/19/19 10:30 Potassium 4.6 mmol/L (3.5-5.1) 01/19/19 10:30 Chloride 107 mmol/L (98-107) 01/19/19 10:30 Carbon Dioxide 28 mmol/L (21-32) 01/19/19 10:30 Anion Gap 5 MMOL/L (8-16) L 01/19/19 10:30 BUN 16 mg/dL (7-18) 01/19/19 10:30 Creatinine 0.7 mg/dL (0.55-1.3) 01/19/19 10:30 Creat Clearance w eGFR > 60 (>60) 01/19/19 10:30 Random Glucose 103 mg/dL (74-106) 01/19/19 10:30 Calcium 9.2 mg/dL (8.5-10.1) 01/19/19 10:30 Total Bilirubin 0.2 mg/dL (0.2-1) 01/19/19 10:30 AST 10 U/L (15-37) L 01/19/19 10:30 ALT 12 U/L (13-61) L 01/19/19 10:30 Alkaline Phosphatase 119 U/L (45-117) H 01/19/19 10:30 Total Protein 6.8 g/dl (6.4-8.2) 01/19/19 10:30 Albumin 3.4 g/dl (3.4-5.0) 01/19/19 10:30 RPR Titer Nonreactive (NONREACTIVE) 01/19/19 10:30 lab noted Assessment: 01/20/19 13:27 withdrawal sx chronic back pain muscle cramping acid reflux Plan: continue detox lidocain patch to lower spin protonic for acid reflux that the patient is taking at home flexeril for muscl cramp
[2019-01-20] MEDS: QUEtiapine FUMARATE 100 MG TABLET (FP) PO SCH (22:18)
[2019-01-20] MEDS: THIAMINE HCL 100 MG TABLET (FP) PO SCH (22:18)
[2019-01-20] MEDS: diazePAM 5 MG TABLET PO PRN (22:21)
[2019-01-20] MEDS: LIDOCAINE PATCH REMOVAL MC SCH (23:28)
[2019-01-21] MEDS: diazePAM 5 MG TABLET PO PRN ×3 (05:47→17:16)
[2019-01-21] MEDS: ACETAMINOPHEN 325 MG TABLET (FP) PO PRN ×2 (05:47→17:18)
[2019-01-21] MEDS: CYCLOBENZAPRINE HCL 10 MG TABLET (FP) PO PRN ×2 (05:47→17:16)
[2019-01-21] MEDS ORDERED: METHADONE HCL 5 MG TABLET (FOR DETOX USE ONLY) PO ONE (10:00)
[2019-01-21] MEDS: SERTRALINE HCL 50 MG TABLET (FP) PO SCH (10:42)
[2019-01-21] MEDS: NICOTINE 21 MG/24 HOURS TOPICAL PATCH TD SCH (10:42)
[2019-01-21] MEDS: QUEtiapine FUMARATE 50 MG TABLET PO SCH (10:42)
[2019-01-21] MEDS: cloNIDine HCL 0.1 MG TABLET PO SCH ×2 (10:42→22:18)
[2019-01-21] MEDS: PRENATAL VITAMINS W/ FOLIC ACID TABLET (FP) PO SCH (10:42)
[2019-01-21] MEDS: PANTOPRAZOLE 20 MG TABLET (FP) PO SCH (10:44)
[2019-01-21] MEDS: busPIRone HCL 10 MG TABLET (FP) PO SCH ×2 (10:44→22:17)
[2019-01-21] MEDS: LIDOCAINE 5% TOPICAL PATCH TP SCH (10:44)
[2019-01-21] MEDS: METHADONE HCL 5 MG TABLET (FOR DETOX USE ONLY) PO ONE (11:17)
[2019-01-21] MEDS: METHYL SALICYLATE/MENTHOL OINT 30 GM TUBE TP SCH ×2 (15:05→22:17)
--- NOTE | 2019-01-21 18:46 | PN ---
[facility] Progress Note (SOAP) Subjective: Tremors, Body Aches, Sweating, H/A, Stomach Cramping. Objective: PATIENT A & O X 3, OBSERVED AMBULATING ON UNIT. IN NO ACUTE DISTRESS. 01/21/19 18:45 Vital Signs Temperature 98.2 F 01/21/19 17:48 Pulse Rate 85 01/21/19 17:48 Respiratory Rate 18 01/21/19 17:48 Blood Pressure 101/55 L 01/21/19 17:48 O2 Sat by Pulse Oximetry (%) Laboratory Tests 01/19/19 01/19/19 01/19/19 10:30 10:30 10:30 WBC 8.1 RBC 4.24 Hgb 12.5 Hct 37.2 MCV 87.9 MCH 29.6 MCHC 33.7 RDW 14.0 Plt Count 266 MPV 9.4 Sodium 140 Potassium 4.6 Chloride 107 Carbon Dioxide 28 Anion Gap 5 L BUN 16 Creatinine 0.7 Creat Clearance w eGFR > 60 Random Glucose 103 Calcium 9.2 Total Bilirubin 0.2 AST 10 L ALT 12 L Alkaline Phosphatase 119 H Total Protein 6.8 Albumin 3.4 RPR Titer Nonreactive LABS NOTED. Assessment: 01/21/19 18:45 WITHDRAWAL SYMPTOMS. Plan: CONTINUE DETOX. INCREASE DAILY PO FLUID INTAKE.
[2019-01-21] MEDS: LIDOCAINE PATCH REMOVAL MC SCH (22:18)
[2019-01-21] MEDS: THIAMINE HCL 100 MG TABLET (FP) PO SCH (22:18)
[2019-01-21] MEDS: QUEtiapine FUMARATE 100 MG TABLET (FP) PO SCH (22:18)
[2019-01-22] MEDS: CYCLOBENZAPRINE HCL 10 MG TABLET (FP) PO PRN ×2 (05:23→17:24)
[2019-01-22] MEDS: ACETAMINOPHEN 325 MG TABLET (FP) PO PRN ×2 (05:24→17:24)
[2019-01-22] MEDS ORDERED: METHADONE HCL 10 MG TABLET (FOR DETOX USE ONLY) PO ONE (10:00)
[2019-01-22] MEDS: PRENATAL VITAMINS W/ FOLIC ACID TABLET (FP) PO SCH (10:24)
[2019-01-22] MEDS: SERTRALINE HCL 50 MG TABLET (FP) PO SCH (10:24)
[2019-01-22] MEDS: NICOTINE 21 MG/24 HOURS TOPICAL PATCH TD SCH (10:24)
[2019-01-22] MEDS: METHYL SALICYLATE/MENTHOL OINT 30 GM TUBE TP SCH ×2 (10:24→22:23)
[2019-01-22] MEDS: busPIRone HCL 10 MG TABLET (FP) PO SCH ×2 (10:24→22:22)
[2019-01-22] MEDS: cloNIDine HCL 0.1 MG TABLET PO SCH ×2 (10:24→22:22)
[2019-01-22] MEDS: QUEtiapine FUMARATE 50 MG TABLET PO SCH (10:24)
[2019-01-22] MEDS: LIDOCAINE 5% TOPICAL PATCH TP SCH (10:25)
[2019-01-22] MEDS: PANTOPRAZOLE 20 MG TABLET (FP) PO SCH (10:25)
[2019-01-22] MEDS: hydrOXYzine PAMOATE 25 MG CAPSULE (FP) PO PRN ×3 (10:26→22:22)
--- NOTE | 2019-01-22 17:08 | PN ---
[facility] Progress Note Note: Psychiatry Attending's note : Approached by patient for prescriptions. Ms Tolbert wanted to confirm that scripts were sent to [facility]. Discharge is imminent. Search for inpatient rehabilitation program : ongoing. Medications reviewed. Verified. Side effects/benefits discussed with the patient. Current regimen is well tolerated. Patient is already known to this headline writer. Seroquel 100 mg po hs tab # 30 Buspar 10 mg po bid tab # 60 Zoloft 100 mg po daily tab # 30 Electronically sent, by this headline writer, to [facility] # [id number].
--- NOTE | 2019-01-22 18:57 | PN ---
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
[2019-01-22] MEDS: THIAMINE HCL 100 MG TABLET (FP) PO SCH (22:22)
[2019-01-22] MEDS: QUEtiapine FUMARATE 100 MG TABLET (FP) PO SCH (22:22)
[2019-01-22] MEDS: LIDOCAINE PATCH REMOVAL MC SCH (22:23)
[2019-01-23] MEDS: ACETAMINOPHEN 325 MG TABLET (FP) PO PRN ×2 (05:35→10:42)
[2019-01-23] MEDS: CYCLOBENZAPRINE HCL 10 MG TABLET (FP) PO PRN (05:35)
[2019-01-23] MEDS ORDERED: METHADONE HCL 5 MG TABLET (FOR DETOX USE ONLY) PO ONE (06:00)
[2019-01-23] MEDS: cloNIDine HCL 0.1 MG TABLET PO SCH (10:41)
[2019-01-23] MEDS: PRENATAL VITAMINS W/ FOLIC ACID TABLET (FP) PO SCH (10:42)
[2019-01-23] MEDS: SERTRALINE HCL 50 MG TABLET (FP) PO SCH (10:42)
[2019-01-23] MEDS: busPIRone HCL 10 MG TABLET (FP) PO SCH (10:42)
[2019-01-23] MEDS: METHYL SALICYLATE/MENTHOL OINT 30 GM TUBE TP SCH (10:42)
[2019-01-23] MEDS: QUEtiapine FUMARATE 50 MG TABLET PO SCH (10:42)
[2019-01-23] MEDS: LIDOCAINE 5% TOPICAL PATCH TP SCH (10:52)
[2019-01-23] MEDS: PANTOPRAZOLE 20 MG TABLET (FP) PO SCH (10:52)
[2019-01-23] MEDS: NICOTINE 21 MG/24 HOURS TOPICAL PATCH TD SCH (10:52)
[2019-01-23 11:10] LABS: URINE APPEARANCE CLOUDY; URINE BILIRUBIN NEGATIVE (<2.0 mg/dL); URINE COLOR YELLOW; URINE GLUCOSE (UA) NEGATIVE (NEGATIVE); URINE KETONE NEGATIVE (NEGATIVE); URINE LEUK ESTERASE 2+ (NEGATIVE); URINE NITRITE NEGATIVE (NEGATIVE); URINE PROTEIN NEGATIVE (NEGATIVE); URINE UROBILINOGEN NEGATIVE mg/dL (0.2-1.0)
[2019-01-23 11:16] LABS: EPI CELLS MANY /HPF (FEW); URINE HYALINE CAST 2 /lpf; URINE MUCUS RARE
--- NOTE | 2019-01-23 12:45 | DS ---
[facility] Detox Discharge Summary Admission Date: 01/18/19 Discharge Date: 01/23/19 - History Present History: Opioid Dependence Additional Comments: 48 years old female admitted on 01/18/19 for opiate withdrawal stabilization completed opiate detox regimen aftercare [facility] Pertinent Past History: discuss medication assisted treatment program - Physical Exam Results Vital Signs: Vital Signs Temperature 98.9 F 01/23/19 09:20 Pulse Rate 89 01/23/19 09:20 Respiratory Rate 18 01/23/19 09:20 Blood Pressure 101/58 L 01/23/19 09:20 O2 Sat by Pulse Oximetry (%) Pertinent Admission Physical Exam Findings: opiate withdrawal sx Laboratory Laboratory Last Values WBC 8.1 K/mm3 (4.0-10.0) 01/19/19 10:30 RBC 4.24 M/mm3 (3.60-5.2) 01/19/19 10:30 Hgb 12.5 GM/dL (10.7-15.3) 01/19/19 10:30 Hct 37.2 % (32.4-45.2) 01/19/19 10:30 MCV 87.9 fl (80-96) 01/19/19 10:30 MCH 29.6 pg (25.7-33.7) 01/19/19 10:30 MCHC 33.7 g/dl (32.0-36.0) 01/19/19 10:30 RDW 14.0 % (11.6-15.6) 01/19/19 10:30 Plt Count 266 K/MM3 (134-434) 01/19/19 10:30 MPV 9.4 fl (7.5-11.1) 01/19/19 10:30 Sodium 140 mmol/L (136-145) 01/19/19 10:30 Potassium 4.6 mmol/L (3.5-5.1) 01/19/19 10:30 Chloride 107 mmol/L (98-107) 01/19/19 10:30 Carbon Dioxide 28 mmol/L (21-32) 01/19/19 10:30 Anion Gap 5 MMOL/L (8-16) L 01/19/19 10:30 BUN 16 mg/dL (7-18) 01/19/19 10:30 Creatinine 0.7 mg/dL (0.55-1.3) 01/19/19 10:30 Creat Clearance w eGFR > 60 (>60) 01/19/19 10:30 Random Glucose 103 mg/dL (74-106) 01/19/19 10:30 Calcium 9.2 mg/dL (8.5-10.1) 01/19/19 10:30 Total Bilirubin 0.2 mg/dL (0.2-1) 01/19/19 10:30 AST 10 U/L (15-37) L 01/19/19 10:30 ALT 12 U/L (13-61) L 01/19/19 10:30 Alkaline Phosphatase 119 U/L (45-117) H 01/19/19 10:30 Total Protein 6.8 g/dl (6.4-8.2) 01/19/19 10:30 Albumin 3.4 g/dl (3.4-5.0) 01/19/19 10:30 Urine Color Yellow 01/23/19 07:50 Urine Appearance Cloudy 01/23/19 07:50 Urine pH 5.0 (5.0-8.0) 01/23/19 07:50 Ur Specific [place] 1.015 (1.010-1.035) 01/23/19 07:50 Urine Protein Negative (NEGATIVE) 01/23/19 07:50 Urine Glucose (UA) Negative (NEGATIVE) 01/23/19 07:50 Urine Ketones Negative (NEGATIVE) 01/23/19 07:50 Urine Blood Negative (NEGATIVE) 01/23/19 07:50 Urine Nitrite Negative (NEGATIVE) 01/23/19 07:50 Urine Bilirubin Negative (<2.0 mg/dL) 01/23/19 07:50 Urine Urobilinogen Negative mg/dL (0.2-1.0) 01/23/19 07:50 Ur Leukocyte Esterase 2+ (NEGATIVE) H 01/23/19 07:50 Urine WBC (Auto) 40 /hpf (3-5) 01/23/19 07:50 Urine RBC (Auto) 6 /hpf (0-3) 01/23/19 07:50 Ur Epithelial Cells Many /HPF (FEW) 01/23/19 07:50 Hyaline Casts 2 /lpf 01/23/19 07:50 Urine Mucus Rare 01/23/19 07:50 RPR Titer Nonreactive (NONREACTIVE) 01/19/19 10:30 lab noted - Treatment Hospital Course: Detox Protocol Followed, Detoxed Safely, Responded well, Discharged Condition Good, Rehab Referral Accepted Patient has Accepted a Rehab Referral to[facility] - Medication Discharge Medications: Ambulatory Orders Omeprazole 40 mg PO DAILY 02/27/17 Albuterol Sulfate Inhaler - [Ventolin HFA Inhaler -] 2 inh PO Q4H PRN #1 inhaler 10/10/18 cloNIDine HCL [Catapres -] 0.1 mg PO BID #14 tablet 10/10/18 Quetiapine Fumarate [Seroquel -] 50 mg PO DAILY #30 tablet 11/08/18 Quetiapine Fumarate [Seroquel] 100 mg PO HS #30 tablet 11/08/18 Sertraline HCl [Zoloft -] 100 mg PO DAILY #30 tablet 11/08/18 Buspirone HCl [Buspar -] 10 mg PO TID #90 tablet 12/13/18 Naloxone HCl [Narcan] 4 mg NS ASDIR PRN 01/19/19 Buspirone HCl [Buspar -] 10 mg PO BID #60 tablet 01/22/19 Quetiapine Fumarate [Seroquel] 100 mg PO HS #30 tablet 01/22/19 Sertraline HCl [Zoloft] 100 mg PO DAILY #30 tablet 01/22/19 - Diagnosis (1) Substance induced mood disorder Current Visit: Yes Status: Suspected (2) Asthma Current Visit: Yes Status: Chronic Qualifiers: Asthma severity: mild Asthma persistence: intermittent Asthma complication type: uncomplicated Qualified Code(s): J45.20 - Mild intermittent asthma, uncomplicated (3) GERD (gastroesophageal reflux disease) Current Visit: Yes Status: Chronic Qualifiers: Esophagitis presence: without esophagitis Qualified Code(s): K21.9 - Gastro -esophageal reflux disease without esophagitis (4) Nicotine dependence Current Visit: Yes Status: Acute Qualifiers: Nicotine product type: cigarettes Substance use status: in withdrawal Qualified Code(s): F17.213 - Nicotine dependence, cigarettes, with withdrawal (5) Opioid dependence with withdrawal Current Visit: Yes Status: Acute - AMA Did Patient Leave Against Medical Advice: No
[2019-01-23 13:32] VITALS: BP 108/58; PULSE 85; TEMP 97.4
== END 2019-01-23 12:32 | disposition other institution (70) | DRG 773 ==
LOC: YASAS 13:49 → Y3E 18:20 → Y3N 18:47
PROVIDERS: ADMIT Surgery; ATTEND Surgery
PROC: HZ2ZZZZ Detoxification Services for Substance Abuse Treatment (ICD-10-PCS; principal; 2019-01-18)
DX: F11.23 Opioid dependence with withdrawal (principal); F14.20 Cocaine dependence, uncomplicated; F17.210 Nicotine dependence, cigarettes, uncomplicated; K21.9 Gastro-esophageal reflux disease without esophagitis; M54.5 Low back pain; G89.29 Other chronic pain; M12.9 Arthropathy, unspecified; Z86.73 Personal history of transient ischemic attack (TIA), and cerebral infarction without residual deficits
CPT/HCPCS: 36415; 80053; 81003; 81015; 85027; 86593; J0735

== ENCOUNTER 2019-01-23 12:07 | Inpatient (IN) | payer OTHER ==
[2019-01-23] MEDS ORDERED: MAGNESIUM CITRATE 300 ML BOTTLE PO PRN (12:49)
[2019-01-23] MEDS ORDERED: P-EPHED 60MG/TRIPROLIDI 2.5MG TABLET PO PRN (12:49)
[2019-01-23] MEDS ORDERED: LOPERAMIDE HCL 2 MG CAPSULE PO PRN (12:49)
[2019-01-23] MEDS ORDERED: MENTHOL/PHENOL 1 EACH UD MM PRN (12:49)
[2019-01-23] MEDS ORDERED: guaiFENesin/D-METHORPHAN HB 10 ML UNIT-DOSE CUPS PO PRN (12:49)
[2019-01-23] MEDS ORDERED: MAGNESIUM HYDROX 2400MG/30ML ORAL SUSPENSION 30 ML CUP PO PRN (12:49)
[2019-01-23] MEDS ORDERED: NICOTINE POLACRILEX 2 MG GUM BUC PRN (12:49)
--- NOTE | 2019-01-23 12:49 | HP ---
[facility] Rehab Assess/Revision - Admission History Admitted to Rehab from: [facility] Date of Admission to Rehab: 01/23/19 - Findings Detox History & Physical reviewed: Yes Concur with findings: Yes Comments/Additional Findings: transferred from detox to rehab admission as per protocol Inpatient Rehab Admission - Rehab Decision to Admit Inpatient rehab admission?: Yes - Initial Determination Are CD services needed?: Yes Free of communicable disease: Yes Not in need of hospitalization: Yes - Rehab Admission Criteria Previous failed treatment: Yes Poor recovery environment: Yes Comorbidities: Yes Lacks judgement: No Patient is meeting Inpatient Rehab admission criteria:: Yes
[2019-01-23] MEDS ORDERED: ALBUTEROL SO4 8 GM HFA INHALER IH PRN (12:50)
[2019-01-23] MEDS: THIAMINE HCL 100 MG TABLET (FP) PO SCH (21:07)
[2019-01-23] MEDS: METHYL SALICYLATE/MENTHOL OINT 30 GM TUBE TP SCH (21:07)
[2019-01-23] MEDS: cloNIDine HCL 0.1 MG TABLET PO SCH (21:07)
[2019-01-23] MEDS: LIDOCAINE PATCH REMOVAL MC SCH (21:07)
[2019-01-23] MEDS: QUEtiapine FUMARATE 100 MG TABLET (FP) PO SCH (21:07)
[2019-01-24 00:22] LABS: URINE APPEARANCE CLOUDY; URINE BILIRUBIN NEGATIVE (<2.0 mg/dL); URINE COLOR YELLOW; URINE GLUCOSE (UA) NEGATIVE (NEGATIVE); URINE KETONE NEGATIVE (NEGATIVE); URINE LEUK ESTERASE 2+ (NEGATIVE); URINE NITRITE NEGATIVE (NEGATIVE); URINE PROTEIN NEGATIVE (NEGATIVE); URINE UROBILINOGEN NEGATIVE mg/dL (0.2-1.0)
[2019-01-24 00:30] LABS: EPI CELLS MANY /HPF (FEW); URINE BACTERIA FEW /hpf (NONE SEEN); URINE MUCUS RARE
[2019-01-24] MEDS: IBUPROFEN 400 MG TABLET (FP) PO PRN (06:34)
[2019-01-24] MEDS: CYCLOBENZAPRINE HCL 10 MG TABLET (FP) PO PRN (07:21)
--- NOTE | 2019-01-24 09:25 | PN ---
Psychiatric Progress Note Vital Signs: Vital Signs Period Temp Pulse Resp BP Sys/Mccracken Pulse Ox Last 24 Hr 97.6 F-97.6 F 76-86 17-18 109-114/72-75 Date of Session: 01/24/19 Chief Complaint:: I need my meds for depression and anxiety. HPI: This is a 48 years old female, single mother of six, uhnemployed, homeless , om [place] support withy no psychiatric hospitalization history, with history of Bipolar Disorder and OCD, seeking for rehab. Patient reports history of abusing heroin,alcohol,cocaine,marijuana. Current Medications: Active Medications Generic Name Dose Route Start Last Admin Trade Name Freq PRN Reason Stop Dose Admin Acetaminophen 650 mg 01/23/19 12:49 Tylenol - PO Q4H PRN FEVER Al Hydroxide/Mg Hydroxide 30 ml 01/23/19 12:49 Mylanta Oral Suspension - PO Q6H PRN DYSPEPSIA Albuterol Sulfate 2 puff 01/23/19 12:50 Ventolin Hfa Inhaler - IH Q4H PRN ASTHMA Clonidine 0.1 mg 01/23/19 22:00 01/23/19 21:07 Catapres - PO 0.1 mg BID KIARRA Administration Cyclobenzaprine HCl 10 mg 01/24/19 06:48 01/24/19 07:21 Flexeril - PO 10 mg TID PRN Administration MUSCLE SPASMS Eucalyptus/Menthol/Phenol/Sorbitol 1 each 01/23/19 12:49 Cepastat Lozenge - MM Q4H PRN SORE THROAT Guaifenesin 10 ml 01/23/19 12:49 Robitussin Dm - PO Q6H PRN COUGH Ibuprofen 400 mg 01/23/19 12:49 01/24/19 06:34 Motrin - PO 400 mg Q6H PRN Administration Pain Level 4-6 Lidocaine 1 patch 01/24/19 10:00 Lidoderm Patch - TP DAILY KIARRA Loperamide HCl 4 mg 01/23/19 12:49 Imodium - PO Q6H PRN DIARRHEA Magnesium Citrate 300 ml 01/23/19 12:49 Citroma - PO Q48H PRN CONSTIPATION Magnesium Hydroxide 30 ml 01/23/19 12:49 Milk Of Magnesia - PO DAILY PRN CONSTIPATION Melatonin 5 mg 01/23/19 22:00 Melatonin PO HS PRN INSOMNIA Methyl Salicylate 1 applic 01/23/19 22:00 01/23/19 21:07 José-Silverio - TP Not Given BID KIARRA Miscellaneous 1 each 01/23/19 22:00 01/23/19 21:07 Lidoderm Patch Removal MC 1 each DAILY@2200 KIARRA Administration Nicotine 14 mg 01/23/19 12:49 Nicoderm Patch - TD DAILY PRN NICOTINE REPLACEMENT RX Nicotine Polacrilex 2 mg 01/23/19 12:49 Nicorette Gum - BUC Q2H PRN NICOTINE REPLACEMENT RX Pantoprazole Sodium 20 mg 01/24/19 10:00 Protonix - PO DAILY KIARRA Multivit/Folic Acid/Iron 1 tab 01/24/19 10:00 Vitamins (Sjr) - PO DAILY KIARRA Pseudoephedrine/Triprolidine 1 combo 01/23/19 12:49 Actifed - PO TID PRN NASAL CONGESTION Quetiapine Fumarate 100 mg 01/23/19 22:00 01/23/19 21:07 Seroquel - PO 100 mg HS KIARRA Administration Thiamine HCl 100 mg 01/23/19 22:00 01/23/19 21:07 Vitamin B1 - PO 100 mg HS KIARRA Administration Current Side Effect: No Lab tests ordered: No Lab tests reviewed: Yes Provider note:: Chart was revuewed,patient was evaluated and seen in my office to address depresed mood,anxiety,insomnia.She was on below medications and willing to restart. Zoloft 100 mg po daily,. Buspar 10 mg po bid and. Seroquel 50 mg po daily. Supportive therapy provided. Mental Status Exam - Mental Status Exam Alert and Oriented to: Time, Place, Person Cognitive Function: Grossly Intact Patient Appearance: Unkempt Mood: Sad, Anxious Affect: Mood Congruent, Labile Patient Behavior: Cooperative Speech Pattern: Clear Voice Loudness: Normal Thought Process: Goal Oriented Thought Disorder: Not Present Hallucinations: Denies Suicidal Ideation: Denies Homicidal Ideation: Denies Insight/Judgement: Fair Sleep: Difficulty falling asleep Appetite: Fair Muscle strength/Tone: Normal Gait/Station: Normal Additional Comments: Zoloft 100 mg po daily,. Buspar 10 mg po bid and. Seroquel 50 mg po daily. Psychiatric Treatment Plan - Problem List (1) Alcohol dependence with uncomplicated withdrawal Current Visit: Yes (2) Opioid dependence with withdrawal Current Visit: Yes (3) Alcohol dependence Current Visit: Yes Qualifiers: Substance use status: uncomplicated Qualified Code(s): F10.20 - Alcohol dependence, uncomplicated (4) Arthritis Current Visit: No (5) Asthma Current Visit: No Qualifiers: Asthma severity: mild Asthma persistence: intermittent Asthma complication type: uncomplicated Qualified Code(s): J45.20 - Mild intermittent asthma, uncomplicated Initial treatment plan: Zoloft 100 mg po daily,. Buspar 10 mg po bid and. Seroquel 50 mg po daily.
[2019-01-24] MEDS: PRENATAL VITAMINS W/ FOLIC ACID TABLET (FP) PO SCH (10:15)
[2019-01-24] MEDS: cloNIDine HCL 0.1 MG TABLET PO SCH ×2 (10:15→21:33)
[2019-01-24] MEDS: LIDOCAINE 5% TOPICAL PATCH TP SCH (10:16)
[2019-01-24] MEDS: NICOTINE 14 MG/24 HOURS TOPICAL PATCH TD PRN (10:16)
[2019-01-24] MEDS: busPIRone HCL 10 MG TABLET (FP) PO SCH ×2 (10:28→21:33)
[2019-01-24] MEDS: SERTRALINE HCL 50 MG TABLET (FP) PO SCH (10:28)
[2019-01-24] MEDS: PANTOPRAZOLE 20 MG TABLET (FP) PO SCH (10:29)
[2019-01-24] MEDS: QUEtiapine FUMARATE 50 MG TABLET PO SCH (10:29)
[2019-01-24] MEDS: METHYL SALICYLATE/MENTHOL OINT 30 GM TUBE TP SCH ×2 (10:30→21:36)
--- NOTE | 2019-01-24 12:28 | PN ---
[facility] COWS - Scale Resting Pulse: 1= [place] 81-100 Sweatin= Chills/Flushing Restless Observation: 1= Difficult to Sit Still Pupil Size: 2= Moderately Dilated Bone or Joint Aches: 2= Severe Diffuse Aches Runny Nose/ Eye Tearin= None GI Upset > 30mins: 1= Stomach Cramp Tremor Observation of Outstretched Hands: 1= Tremor [place], Not Seen Yawning Observation: 0= None Anxiety or Irritability: 2=Irritable/Anxious Goose Flesh Skin: 0=Smooth Skin COWS Score: 11 S Progress Note (SOAP) Subjective: PATIENT IS KNOWN TO [facility]. HAS BEEN ADMITTED MULTIPLE TIMES FOR HEROIN DEPENDENCE. TREATED LAST ADMISSION 09/2018 WITH SUBOXONE BUT DID NOT CONTINUE WITH TREATMENT AT [facility] ONCE SHE WAS DISCHARGED. PATIENT WOULD LIKE TO RESUME SUBOXONE TREATMENT AGAIN. CONNECTED TO [facility] AND APPT SCHEDULE FOR 10/18 10AM. PATIENT C/O ANXIETY, RESTLESSNESS, CHILLS, STOMACH CRAMPS AND OPIOD CRAVINGS TODAY. Objective: 01/24/19 12:25 Vital Signs Temperature 97.6 F 01/24/19 07:10 Pulse Rate 76 01/24/19 07:10 Respiratory Rate 18 01/24/19 07:10 Blood Pressure 114/75 01/24/19 07:10 O2 Sat by Pulse Oximetry (%) Laboratory Tests 01/24/19 01/24/19 00:00 07:40 Urine Color Yellow Urine Appearance Cloudy Urine pH 6.0 Ur Specific [place] 1.018 Urine Protein Negative Urine Glucose (UA) Negative Urine Ketones Negative Urine Blood Negative Urine Nitrite Negative Urine Bilirubin Negative Urine Urobilinogen Negative Ur Leukocyte Esterase 2+ H Urine WBC (Auto) 27 Urine RBC (Auto) 4 Ur Epithelial Cells Many Urine Bacteria Few Urine Mucus Rare HIV 1&2 Antibody Screen Negative HIV P24 Antigen Negative PE: ALERT AND ORIENTED X 3 SKIN WARM AND MOIST EXT FULL ROM, +TREMOR FELT AMB AD CELESTINA ANXIOUS, IRRITABLE Assessment: 01/24/19 12:26 WITHDRAWAL SX SUBOXONE MAT Plan: WILL START SUBOXONE 2MG NOW, 2MG AT 10PM TO TOTAL 4MG TODAY THEN INCREASE TO SUBOXONE 8MG STARTING TOMORROW CONTINUE TO MONITOR
[2019-01-24] MEDS ORDERED: BUPRENORPHINE/NALOXONE 2 MG/0.5 MG FILM PACKET SL ONE ×2 (12:45→22:00)
--- NOTE | 2019-01-24 13:27 | CONSULT ---
[facility] Psychiatric Consult - Data Date of interview: 01/24/19 Admission source: 6N Identifying data: This is a 48 years old female, single mother of six, uhnemployed, homeless, om [place] support, with no psychiatric hospitalization history, with history of Bipolar Disorder and OCD, seeking for rehab. Patient reports history of abusing heroin,alcohol,cocaine,marijuana. Substance Abuse History: Patient reports long history of abuse, dependence of Cannabis, Alcohol, Crack, Heroin nad Nicotine. Smoking history: Current every day smoker. Have you smoked in the past 12 months: Yes. Aproximately how many cigarettes per day: 8. Cigars Per Day: 0. Hx Chewing Tobacco Use: No. Initiated information on smoking cessation: Yes. 'Breaking Loose' booklet given : 12/09/18. - Substances Abused. Heroin. Route: Inhalation. Frequency: Daily. Amount used: 7-8 BAGS. Age of first use: 30. Date of Last Use: . Cocaine. Route: Inhalation. Frequency: 1-2 times per week. Amount used: $40. Age of first use: 26. Date of Last Use: 11/18/18. Crack. Route : Smoking. Frequency: Daily. Amount used: $300-$400. Age of first use: 16. Date of Last Use: 12/08/18. Marijuana/Hashish. Route: Smoking. Frequency: Daily. Amount used: 1 BAG. Age of first use: 13. Date of Last Use: 12/09/18 Medical History: BA,Chronic arthritis. Psychiatric History: Patient reports history of depressed mood,anxiety.She denies psychiatric hospittaliztions .No histoy of suicidality.Patient was treatmted with psychotropic medications while bieng in outpatient/inpatient rehab/detox,dx with substance induced mood disorder..She has no current psychiatric OPD care.Patient restarted Seroquel 50 mg po am and 100 mg po hs in detox on . Physical/Sexual Abuse/Trauma History: Denies Additional Comment: Chart was revuewed,patient was evaluated and seen in my office to address depresed mood,anxiety,insomnia.She was on below medications and willing to restart. Zoloft 100 mg po daily,. Buspar 10 mg po bid and. Seroquel 50 mg po daily. Supportive therapy provided. Mental Status Exam - Mental Status Exam Alert and Oriented to: Time, Place, Person Cognitive Function: Grossly Intact Patient Appearance: Well Groomed Mood: Anxious Affect: Mood Congruent, Labile Patient Behavior: Appropriate, Cooperative Speech Pattern: Clear Voice Loudness: Normal Thought Process: Goal Oriented Thought Disorder: Not Present Hallucinations: Denies Suicidal Ideation: Denies Homicidal Ideation: Denies Insight/Judgement: Fair Sleep: Difficulty falling asleep Appetite: Good Muscle strength/Tone: Normal Gait/Station: Normal Psychiatric Findings - Problem List (Girdler 1, 2,3) (1) Alcohol dependence with uncomplicated withdrawal Current Visit: Yes Status: Acute (2) Opioid dependence with withdrawal Current Visit: Yes Status: Acute (3) Alcohol dependence Current Visit: Yes Status: Chronic Qualifiers: Substance use status: uncomplicated Qualified Code(s): F10.20 - Alcohol dependence, uncomplicated (4) Arthritis Current Visit: No Status: Chronic (5) Asthma Current Visit: No Status: Chronic Qualifiers: Asthma severity: mild Asthma persistence: intermittent Asthma complication type: uncomplicated Qualified Code(s): J45.20 - Mild intermittent asthma, uncomplicated - Initial Treatment Plan Initial Treatment Plan: Continue current medication as per plan.
[2019-01-24] MEDS: LIDOCAINE PATCH REMOVAL MC SCH (21:33)
[2019-01-24] MEDS: THIAMINE HCL 100 MG TABLET (FP) PO SCH (21:33)
[2019-01-24] MEDS: QUEtiapine FUMARATE 100 MG TABLET (FP) PO SCH (21:33)
[2019-01-25] MEDS: IBUPROFEN 400 MG TABLET (FP) PO PRN (06:22)
[2019-01-25] MEDS: CYCLOBENZAPRINE HCL 10 MG TABLET (FP) PO PRN (06:22)
[2019-01-25] MEDS ORDERED: COLLOIDAL OATMEAL 1 BAR EACH TP PRN (10:01)
[2019-01-25] MEDS: METHYL SALICYLATE/MENTHOL OINT 30 GM TUBE TP SCH ×3 (10:37→22:24)
[2019-01-25] MEDS: QUEtiapine FUMARATE 50 MG TABLET PO SCH (10:38)
[2019-01-25] MEDS: PRENATAL VITAMINS W/ FOLIC ACID TABLET (FP) PO SCH (10:38)
[2019-01-25] MEDS: BUPRENORPHINE/NALOXONE 8 MG/2 MG FILM PACKET SL SCH (10:38)
[2019-01-25] MEDS: SERTRALINE HCL 50 MG TABLET (FP) PO SCH (10:38)
[2019-01-25] MEDS: PANTOPRAZOLE 20 MG TABLET (FP) PO SCH (10:38)
[2019-01-25] MEDS: cloNIDine HCL 0.1 MG TABLET PO SCH ×2 (10:39→21:40)
[2019-01-25] MEDS: busPIRone HCL 10 MG TABLET (FP) PO SCH ×2 (10:39→21:40)
[2019-01-25] MEDS: LIDOCAINE 5% TOPICAL PATCH TP SCH (10:39)
[2019-01-25] MEDS: NICOTINE 14 MG/24 HOURS TOPICAL PATCH TD PRN (10:55)
--- NOTE | 2019-01-25 11:11 | PN ---
[facility] COWS - Scale Resting Pulse: 1= [place] 81-100 Sweatin=Flushed/Facial Moisture Restless Observation: 0= Sits Still Pupil Size: 1= Pupils >than Normal Bone or Joint Aches: 4=Acute Joint/Muscle Pain Runny Nose/ Eye Tearin= None GI Upset > 30mins: 0= None Tremor Observation of Outstretched Hands: 0= None Yawning Observation: 0= None Anxiety or Irritability: 2=Irritable/Anxious Goose Flesh Skin: 0=Smooth Skin COWS Score: 10 S Progress Note (SOAP) Subjective: PATIENT STARTED SUBOXONE MAT YESTERDAY 4MG AND INCREASED TODAY TO 8MG. PATIENT STATES SHE CONTINUES TO HAVE OPIOD CRAVINGS, MUSCLE/JOINT PAIN, ANXIETY AND IRRITABILITY. Objective: 01/25/19 11:11 Laboratory Tests 01/24/19 01/24/19 00:00 07:40 Urine Color Yellow Urine Appearance Cloudy Urine pH 6.0 Ur Specific [place] 1.018 Urine Protein Negative Urine Glucose (UA) Negative Urine Ketones Negative Urine Blood Negative Urine Nitrite Negative Urine Bilirubin Negative Urine Urobilinogen Negative Ur Leukocyte Esterase 2+ H Urine WBC (Auto) 27 Urine RBC (Auto) 4 Ur Epithelial Cells Many Urine Bacteria Few Urine Mucus Rare HIV 1&2 Antibody Screen Negative HIV P24 Antigen Negative PE: ALERT AND ORIENTED X 3 SKIN WARM, + FACIAL MOISTURE EXT AMB WITH LIMP DUE TO ATHRITIS OF RIGHT KNEE, NO PEDAL EDEMA, NO TREMORS ANXIOUS AND IRRITABLE Vital Signs Temperature 97.8 F 01/25/19 07:47 Pulse Rate 82 01/25/19 09:19 Respiratory Rate 18 01/25/19 07:47 Blood Pressure 124/73 01/25/19 09:19 O2 Sat by Pulse Oximetry (%) Assessment: 01/25/19 11:11 Vital Signs Temperature 97.8 F 01/25/19 07:47 Pulse Rate 82 01/25/19 09:19 Respiratory Rate 18 01/25/19 07:47 Blood Pressure 124/73 01/25/19 09:19 O2 Sat by Pulse Oximetry (%) Laboratory Tests 01/24/19 01/24/19 00:00 07:40 Urine Color Yellow Urine Appearance Cloudy Urine pH 6.0 Ur Specific [place] 1.018 Urine Protein Negative Urine Glucose (UA) Negative Urine Ketones Negative Urine Blood Negative Urine Nitrite Negative Urine Bilirubin Negative Urine Urobilinogen Negative Ur Leukocyte Esterase 2+ H Urine WBC (Auto) 27 Urine RBC (Auto) 4 Ur Epithelial Cells Many Urine Bacteria Few Urine Mucus Rare HIV 1&2 Antibody Screen Negative HIV P24 Antigen Negative WITHDRAWAL SX SUBOXONE MAT Plan: WILL CONTINUE WITH SUBOXONE 8MG THIS AM AND ORDER 4MG TONIGHT AT 10PM START 12MG OF SUBOXONE DAILY TOMORROW ENCOURAGE ORAL FLUIDS CONTINUE TO MONITOR CLINICALLY CANE ORDERED FOR AMBULATION SUPPORT
[2019-01-25] MEDS: ACETAMINOPHEN 325 MG TABLET (FP) PO PRN (19:59)
[2019-01-25] MEDS: THIAMINE HCL 100 MG TABLET (FP) PO SCH (21:38)
[2019-01-25] MEDS: LIDOCAINE PATCH REMOVAL MC SCH (21:39)
[2019-01-25] MEDS: QUEtiapine FUMARATE 100 MG TABLET (FP) PO SCH (21:40)
[2019-01-25] MEDS ORDERED: BUPRENORPHINE/NALOXONE 2 MG/0.5 MG FILM PACKET SL ONE (22:00)
[2019-01-26] MEDS: ACETAMINOPHEN 325 MG TABLET (FP) PO PRN (05:30)
[2019-01-26] MEDS: CYCLOBENZAPRINE HCL 10 MG TABLET (FP) PO PRN (06:40)
[2019-01-26] MEDS: busPIRone HCL 10 MG TABLET (FP) PO SCH ×2 (10:37→22:10)
[2019-01-26] MEDS: LIDOCAINE 5% TOPICAL PATCH TP SCH (10:37)
[2019-01-26] MEDS: METHYL SALICYLATE/MENTHOL OINT 30 GM TUBE TP SCH ×3 (10:37→22:38)
[2019-01-26] MEDS: cloNIDine HCL 0.1 MG TABLET PO SCH ×2 (10:37→22:10)
[2019-01-26] MEDS: PRENATAL VITAMINS W/ FOLIC ACID TABLET (FP) PO SCH (10:37)
[2019-01-26] MEDS: SERTRALINE HCL 50 MG TABLET (FP) PO SCH (10:38)
[2019-01-26] MEDS: PANTOPRAZOLE 20 MG TABLET (FP) PO SCH (10:38)
[2019-01-26] MEDS: QUEtiapine FUMARATE 50 MG TABLET PO SCH (10:38)
[2019-01-26] MEDS: BUPRENORPHINE/NALOXONE 8 MG/2 MG FILM PACKET SL SCH (10:39)
[2019-01-26] MEDS: LIDOCAINE PATCH REMOVAL MC SCH (22:11)
[2019-01-26] MEDS: THIAMINE HCL 100 MG TABLET (FP) PO SCH (22:11)
[2019-01-26] MEDS: QUEtiapine FUMARATE 100 MG TABLET (FP) PO SCH (22:11)
--- NOTE | 2019-01-26 22:31 | PN ---
[facility] Progress Note Note: PT TO RECEIVE A TOTAL OF 12 MG OF SUBOXONE DAILY. CLIENT PREFERS TO TAKE HER DOSE SPLIT. SUBXONE 8MG DAILY AND SUBXONE 4 MG HS THIS IS HOW SHE RECEIVED IT THE THE DAY BEFORE AND WOULD LIKE TO CONTINUE THE SAME TWO 2mg/0.5mg FILMS = THE 4mg/1mg DOSE QHS . total 12mg of suboxone DAILY - REORDERED
[2019-01-26] MEDS: BUPRENORPHINE/NALOXONE 2 MG/0.5 MG FILM PACKET SL SCH (22:39)
[2019-01-27] MEDS: IBUPROFEN 400 MG TABLET (FP) PO PRN (06:09)
[2019-01-27] MEDS: CYCLOBENZAPRINE HCL 10 MG TABLET (FP) PO PRN (06:09)
[2019-01-27] MEDS: BUPRENORPHINE/NALOXONE 8 MG/2 MG FILM PACKET SL SCH (10:32)
[2019-01-27] MEDS: LIDOCAINE 5% TOPICAL PATCH TP SCH (10:32)
[2019-01-27] MEDS: PRENATAL VITAMINS W/ FOLIC ACID TABLET (FP) PO SCH (10:32)
[2019-01-27] MEDS: PANTOPRAZOLE 20 MG TABLET (FP) PO SCH (10:33)
[2019-01-27] MEDS: busPIRone HCL 10 MG TABLET (FP) PO SCH ×2 (10:33→21:42)
[2019-01-27] MEDS: QUEtiapine FUMARATE 50 MG TABLET PO SCH (10:33)
[2019-01-27] MEDS: SERTRALINE HCL 50 MG TABLET (FP) PO SCH (10:33)
[2019-01-27] MEDS: cloNIDine HCL 0.1 MG TABLET PO SCH ×2 (10:33→21:42)
[2019-01-27] MEDS: METHYL SALICYLATE/MENTHOL OINT 30 GM TUBE TP SCH ×2 (10:35→21:42)
[2019-01-27] MEDS: NICOTINE 14 MG/24 HOURS TOPICAL PATCH TD PRN (12:42)
[2019-01-27] MEDS: QUEtiapine FUMARATE 100 MG TABLET (FP) PO SCH (21:42)
[2019-01-27] MEDS: LIDOCAINE PATCH REMOVAL MC SCH (21:42)
[2019-01-27] MEDS: THIAMINE HCL 100 MG TABLET (FP) PO SCH (21:42)
[2019-01-27] MEDS: BUPRENORPHINE/NALOXONE 2 MG/0.5 MG FILM PACKET SL SCH (21:42)
[2019-01-28] MEDS: IBUPROFEN 400 MG TABLET (FP) PO PRN (06:53)
[2019-01-28] MEDS: CYCLOBENZAPRINE HCL 10 MG TABLET (FP) PO PRN (06:53)
[2019-01-28] MEDS: LIDOCAINE 5% TOPICAL PATCH TP SCH (10:22)
[2019-01-28] MEDS: busPIRone HCL 10 MG TABLET (FP) PO SCH ×2 (10:22→21:15)
[2019-01-28] MEDS: METHYL SALICYLATE/MENTHOL OINT 30 GM TUBE TP SCH ×2 (10:22→21:17)
[2019-01-28] MEDS: PRENATAL VITAMINS W/ FOLIC ACID TABLET (FP) PO SCH (10:22)
[2019-01-28] MEDS: BUPRENORPHINE/NALOXONE 8 MG/2 MG FILM PACKET SL SCH ×2 (10:22→20:04)
[2019-01-28] MEDS: PANTOPRAZOLE 20 MG TABLET (FP) PO SCH (10:23)
[2019-01-28] MEDS: QUEtiapine FUMARATE 50 MG TABLET PO SCH (10:23)
[2019-01-28] MEDS: cloNIDine HCL 0.1 MG TABLET PO SCH ×2 (10:23→21:15)
[2019-01-28] MEDS: SERTRALINE HCL 50 MG TABLET (FP) PO SCH (10:26)
[2019-01-28] MEDS: ACETAMINOPHEN 325 MG TABLET (FP) PO PRN (10:27)
[2019-01-28] MEDS: NICOTINE 14 MG/24 HOURS TOPICAL PATCH TD PRN (12:53)
[2019-01-28] MEDS ORDERED: NEOMYCIN/BACI/POLY/HC TOPICAL OINT 15 GM TUBE TP SCH (15:30)
--- NOTE | 2019-01-28 16:18 | PN ---
[facility] COWS - Scale Resting Pulse: 0= [place] 80 or Below Sweatin= Chills/Flushing Restless Observation: 0= Sits Still Pupil Size: 2= Moderately Dilated Bone or Joint Aches: 2= Severe Diffuse Aches Runny Nose/ Eye Tearin= None GI Upset > 30mins: 0= None Tremor Observation of Outstretched Hands: 0= None Yawning Observation: 0= None Anxiety or Irritability: 2=Irritable/Anxious Goose Flesh Skin: 0=Smooth Skin COWS Score: 7 BHS Progress Note (SOAP) Subjective: PATIENT SEEN FOR REQUEST OF SUBOXONE MAINTENANCE ADJUSTMENT. C/O ANXIETY, MILD RESTLESSNESS, INTERMITTENT CHILLS, BODY ACHES AND OPIOD CRAVINGS (ALTHOUGH IMPROVED STILL PRESENT) PATIENT ALSO C/O SMALL ABRASION RIGHT SIDE OF MOUTH Objective: 01/28/19 16:14 Vital Signs Temperature 97.7 F 01/28/19 07:09 Pulse Rate 79 01/28/19 07:09 Respiratory Rate 18 01/28/19 07:09 Blood Pressure 107/65 01/28/19 07:09 O2 Sat by Pulse Oximetry (%) Laboratory Tests 01/24/19 01/24/19 00:00 07:40 Urine Color Yellow Urine Appearance Cloudy Urine pH 6.0 Ur Specific [place] 1.018 Urine Protein Negative Urine Glucose (UA) Negative Urine Ketones Negative Urine Blood Negative Urine Nitrite Negative Urine Bilirubin Negative Urine Urobilinogen Negative Ur Leukocyte Esterase 2+ H Urine WBC (Auto) 27 Urine RBC (Auto) 4 Ur Epithelial Cells Many Urine Bacteria Few Urine Mucus Rare HIV 1&2 Antibody Screen Negative HIV P24 Antigen Negative PE: ALERT AND ORIENTED X 3 SKIN WARM AND DRY, RIGHT SIDE OF MOUTH WITH SMALL BLISTER LIKE ABRASION- NO BLEEDING OR REDNESS NOTED EXT + RIGHT SIDED LIMP DUE TO OA OF RIGHT KNEE, AMB AD CELESTINA, + RIGHT KNEE WITH + 1 SWELLING +ANXIETY AND MILD RESTLESSNESS Assessment: 01/28/19 16:17 SUBOXONE MAT WITHDRAWAL SX BLISTER Plan: WILL INCREASE SUBOXONE TO 8MG BID, MDD 16MG MONITOR RESPONSE ADD NEOSPORIN TP TO RIGHT SIDE OF MOUTH SMALL ABRASION DAILY X 4 DAYS
[2019-01-28] MEDS ORDERED: PT OWN MED DRAWER 7, Y5N ONE ×2 (17:26→19:55)
--- NOTE | 2019-01-28 17:39 | PN ---
S Progress Note Note: c/o pain in toes of (L) foot. Small crack/open lesion, approx 8 mm, at under base fold line of 4 and 5 toes. No drainage. No increased erythema. Assessment: Tinea Pedis Plan: Tolnaftate cream BID Discussed hand and foot hygiene
[2019-01-28] MEDS: MAG HYDROX/AL HYDROX/SIMETH 30 ML UNIT-DOSE CUP PO PRN (19:39)
[2019-01-28] MEDS ORDERED: BUPRENORPHINE/NALOXONE 8 MG/2 MG FILM PACKET SL ONE (20:00)
[2019-01-28] MEDS: THIAMINE HCL 100 MG TABLET (FP) PO SCH (21:14)
[2019-01-28] MEDS: TOLNAFTATE 1% CREAM 15 GM TUBE TP SCH (21:15)
[2019-01-28] MEDS: QUEtiapine FUMARATE 100 MG TABLET (FP) PO SCH (21:15)
[2019-01-28] MEDS: LIDOCAINE PATCH REMOVAL MC SCH (22:19)
[2019-01-28] MEDS: NEOMYCIN/POLYMYXIN/HC TOPICAL CREAM 7.5 GM TUBE TP SCH (23:00)
[2019-01-29] MEDS ORDERED: PT OWN MED DRAWER 7, Y5N ONE ×3 (01:21→10:56)
[2019-01-29] MEDS: BUPRENORPHINE/NALOXONE 8 MG/2 MG FILM PACKET SL SCH ×2 (06:28→21:00)
[2019-01-29] MEDS: IBUPROFEN 400 MG TABLET (FP) PO PRN (06:28)
[2019-01-29] MEDS: busPIRone HCL 10 MG TABLET (FP) PO SCH ×2 (10:23→21:05)
[2019-01-29] MEDS: QUEtiapine FUMARATE 50 MG TABLET PO SCH (10:23)
[2019-01-29] MEDS: cloNIDine HCL 0.1 MG TABLET PO SCH ×2 (10:23→21:06)
[2019-01-29] MEDS: PRENATAL VITAMINS W/ FOLIC ACID TABLET (FP) PO SCH (10:23)
[2019-01-29] MEDS: PANTOPRAZOLE 20 MG TABLET (FP) PO SCH (10:23)
[2019-01-29] MEDS: SERTRALINE HCL 50 MG TABLET (FP) PO SCH (10:23)
[2019-01-29] MEDS: LIDOCAINE 5% TOPICAL PATCH TP SCH (10:24)
[2019-01-29] MEDS: NEOMYCIN/POLYMYXIN/HC TOPICAL CREAM 7.5 GM TUBE TP SCH (10:24)
[2019-01-29] MEDS: METHYL SALICYLATE/MENTHOL OINT 30 GM TUBE TP SCH ×2 (10:24→21:07)
[2019-01-29] MEDS: TOLNAFTATE 1% CREAM 15 GM TUBE TP SCH ×2 (10:25→21:07)
[2019-01-29] MEDS: NICOTINE 14 MG/24 HOURS TOPICAL PATCH TD PRN (11:00)
[2019-01-29] MEDS: QUEtiapine FUMARATE 100 MG TABLET (FP) PO SCH (21:05)
[2019-01-29] MEDS: LIDOCAINE PATCH REMOVAL MC SCH (21:06)
[2019-01-29] MEDS: THIAMINE HCL 100 MG TABLET (FP) PO SCH (21:06)
[2019-01-30] MEDS: BUPRENORPHINE/NALOXONE 8 MG/2 MG FILM PACKET SL SCH ×2 (06:25→19:03)
[2019-01-30] MEDS: CYCLOBENZAPRINE HCL 10 MG TABLET (FP) PO PRN (06:59)
[2019-01-30] MEDS: IBUPROFEN 400 MG TABLET (FP) PO PRN (06:59)
[2019-01-30] MEDS: NICOTINE 14 MG/24 HOURS TOPICAL PATCH TD PRN (10:14)
[2019-01-30] MEDS: LIDOCAINE 5% TOPICAL PATCH TP SCH (10:14)
[2019-01-30] MEDS: PRENATAL VITAMINS W/ FOLIC ACID TABLET (FP) PO SCH (10:16)
[2019-01-30] MEDS ORDERED: PT OWN MED DRAWER 7, Y5N ONE (10:17)
[2019-01-30] MEDS: cloNIDine HCL 0.1 MG TABLET PO SCH ×2 (10:17→21:35)
[2019-01-30] MEDS: PANTOPRAZOLE 20 MG TABLET (FP) PO SCH (10:17)
[2019-01-30] MEDS: QUEtiapine FUMARATE 50 MG TABLET PO SCH (10:17)
[2019-01-30] MEDS: METHYL SALICYLATE/MENTHOL OINT 30 GM TUBE TP SCH ×2 (10:18→21:35)
[2019-01-30] MEDS: TOLNAFTATE 1% CREAM 15 GM TUBE TP SCH ×3 (10:18→21:39)
[2019-01-30] MEDS: busPIRone HCL 10 MG TABLET (FP) PO SCH ×2 (10:18→21:35)
[2019-01-30] MEDS: SERTRALINE HCL 50 MG TABLET (FP) PO SCH (10:18)
[2019-01-30] MEDS: NEOMYCIN/POLYMYXIN/HC TOPICAL CREAM 7.5 GM TUBE TP SCH (10:20)
[2019-01-30] MEDS: MAG HYDROX/AL HYDROX/SIMETH 30 ML UNIT-DOSE CUP PO PRN ×2 (12:33→19:11)
[2019-01-30] MEDS: QUEtiapine FUMARATE 100 MG TABLET (FP) PO SCH (21:35)
[2019-01-30] MEDS: THIAMINE HCL 100 MG TABLET (FP) PO SCH (21:35)
[2019-01-30] MEDS: LIDOCAINE PATCH REMOVAL MC SCH (21:35)
[2019-01-30] MEDS: MELATONIN 5 MG TABLETS PO PRN (21:36)
[2019-01-31] MEDS: IBUPROFEN 400 MG TABLET (FP) PO PRN (06:34)
[2019-01-31] MEDS: CYCLOBENZAPRINE HCL 10 MG TABLET (FP) PO PRN ×2 (06:34→21:24)
[2019-01-31] MEDS: BUPRENORPHINE/NALOXONE 8 MG/2 MG FILM PACKET SL SCH ×2 (06:35→19:29)
[2019-01-31] MEDS: METHYL SALICYLATE/MENTHOL OINT 30 GM TUBE TP SCH ×2 (10:03→21:22)
[2019-01-31] MEDS: busPIRone HCL 10 MG TABLET (FP) PO SCH ×2 (10:03→21:24)
[2019-01-31] MEDS: NEOMYCIN/POLYMYXIN/HC TOPICAL CREAM 7.5 GM TUBE TP SCH (10:03)
[2019-01-31] MEDS: cloNIDine HCL 0.1 MG TABLET PO SCH ×2 (10:03→21:25)
[2019-01-31] MEDS: PANTOPRAZOLE 20 MG TABLET (FP) PO SCH (10:04)
[2019-01-31] MEDS: QUEtiapine FUMARATE 50 MG TABLET PO SCH (10:04)
[2019-01-31] MEDS: LIDOCAINE 5% TOPICAL PATCH TP SCH (10:04)
[2019-01-31] MEDS: PRENATAL VITAMINS W/ FOLIC ACID TABLET (FP) PO SCH (10:04)
[2019-01-31] MEDS: SERTRALINE HCL 50 MG TABLET (FP) PO SCH (10:05)
[2019-01-31] MEDS: TOLNAFTATE 1% CREAM 15 GM TUBE TP SCH ×2 (10:05→21:25)
[2019-01-31] MEDS: NICOTINE 14 MG/24 HOURS TOPICAL PATCH TD PRN (10:06)
[2019-01-31] MEDS: MAG HYDROX/AL HYDROX/SIMETH 30 ML UNIT-DOSE CUP PO PRN (10:23)
--- NOTE | 2019-01-31 12:01 | PN ---
[facility] Progress Note Note: PATIENT SEEN FOR SWELLING OF RIGHT KNEE. PATIENT HAS H/O OSTEOARTHRITIS AND REPORTS NEEDING RIGHT TKR. PATIENT REPORTS SWELLING CAUSES DISCOMFORT AND LIMPING TO RLE. Vital Signs Temperature 97.9 F 01/31/19 07:17 Pulse Rate 85 01/31/19 10:00 Respiratory Rate 18 01/31/19 07:17 Blood Pressure 110/66 01/31/19 10:00 O2 Sat by Pulse Oximetry (%) Laboratory Tests 01/24/19 01/24/19 00:00 07:40 Urine Color Yellow Urine Appearance Cloudy Urine pH 6.0 Ur Specific [place] 1.018 Urine Protein Negative Urine Glucose (UA) Negative Urine Ketones Negative Urine Blood Negative Urine Nitrite Negative Urine Bilirubin Negative Urine Urobilinogen Negative Ur Leukocyte Esterase 2+ H Urine WBC (Auto) 27 Urine RBC (Auto) 4 Ur Epithelial Cells Many Urine Bacteria Few Urine Mucus Rare HIV 1&2 Antibody Screen Negative HIV P24 Antigen Negative PE ALERT AND ORIENTED X 3 SKIN WARM AND DRY +PERRLA, EOMS INTACT BL EXT RIGHT KNEE WITH 2+ SWELLING, + B/L PEDAL EDEMA AMB WITH CANE DUE TO LIMPING A/P: RIGHT KNEE CHRONIC SWELLING DUE TO OA PEDAL EDEMA WILL START HCTZ 25MG DAILY FOR SWELLING AND PEDAL EDEMA CONTINUE TO MONITOR CLINICALLY
[2019-01-31] MEDS: HYDROCHLOROTHIAZIDE 25 MG TABLET (FP) PO SCH (13:00)
[2019-01-31] MEDS: THIAMINE HCL 100 MG TABLET (FP) PO SCH (21:21)
[2019-01-31] MEDS: LIDOCAINE PATCH REMOVAL MC SCH (21:22)
[2019-01-31] MEDS: QUEtiapine FUMARATE 100 MG TABLET (FP) PO SCH (21:24)
[2019-02-01] MEDS: IBUPROFEN 400 MG TABLET (FP) PO PRN (02:16)
[2019-02-01] MEDS: BUPRENORPHINE/NALOXONE 8 MG/2 MG FILM PACKET SL SCH ×2 (05:58→19:29)
[2019-02-01] MEDS: CYCLOBENZAPRINE HCL 10 MG TABLET (FP) PO PRN ×2 (06:00→21:11)
[2019-02-01] MEDS: ACETAMINOPHEN 325 MG TABLET (FP) PO PRN (06:00)
[2019-02-01] MEDS: NEOMYCIN/POLYMYXIN/HC TOPICAL CREAM 7.5 GM TUBE TP SCH (10:23)
[2019-02-01] MEDS: LIDOCAINE 5% TOPICAL PATCH TP SCH (10:24)
[2019-02-01] MEDS: TOLNAFTATE 1% CREAM 15 GM TUBE TP SCH ×2 (10:24→21:12)
[2019-02-01] MEDS: SERTRALINE HCL 50 MG TABLET (FP) PO SCH (10:25)
[2019-02-01] MEDS: QUEtiapine FUMARATE 50 MG TABLET PO SCH (10:25)
[2019-02-01] MEDS: PANTOPRAZOLE 20 MG TABLET (FP) PO SCH (10:25)
[2019-02-01] MEDS: HYDROCHLOROTHIAZIDE 25 MG TABLET (FP) PO SCH (10:25)
[2019-02-01] MEDS: METHYL SALICYLATE/MENTHOL OINT 30 GM TUBE TP SCH ×3 (10:25→21:11)
[2019-02-01] MEDS: cloNIDine HCL 0.1 MG TABLET PO SCH ×2 (10:25→21:11)
[2019-02-01] MEDS: PRENATAL VITAMINS W/ FOLIC ACID TABLET (FP) PO SCH (10:25)
[2019-02-01] MEDS: busPIRone HCL 10 MG TABLET (FP) PO SCH ×2 (10:25→21:11)
[2019-02-01] MEDS: NICOTINE 14 MG/24 HOURS TOPICAL PATCH TD PRN (10:27)
[2019-02-01] MEDS ORDERED: PT OWN MED DRAWER 7, Y5N ONE ×2 (15:47→20:48)
[2019-02-01] MEDS: QUEtiapine FUMARATE 100 MG TABLET (FP) PO SCH (21:11)
[2019-02-01] MEDS: THIAMINE HCL 100 MG TABLET (FP) PO SCH (21:11)
[2019-02-01] MEDS: LIDOCAINE PATCH REMOVAL MC SCH (21:12)
[2019-02-02] MEDS ORDERED: PT OWN MED DRAWER 7, Y5N ONE (06:18)
[2019-02-02] MEDS: BUPRENORPHINE/NALOXONE 8 MG/2 MG FILM PACKET SL SCH ×2 (06:18→19:10)
[2019-02-02] MEDS: IBUPROFEN 400 MG TABLET (FP) PO PRN (06:37)
[2019-02-02] MEDS: CYCLOBENZAPRINE HCL 10 MG TABLET (FP) PO PRN ×2 (06:37→21:13)
[2019-02-02] MEDS: NICOTINE 14 MG/24 HOURS TOPICAL PATCH TD PRN (10:10)
[2019-02-02] MEDS: PANTOPRAZOLE 20 MG TABLET (FP) PO SCH (10:13)
[2019-02-02] MEDS: busPIRone HCL 10 MG TABLET (FP) PO SCH ×2 (10:13→21:13)
[2019-02-02] MEDS: HYDROCHLOROTHIAZIDE 25 MG TABLET (FP) PO SCH (10:14)
[2019-02-02] MEDS: cloNIDine HCL 0.1 MG TABLET PO SCH ×2 (10:14→21:13)
[2019-02-02] MEDS: SERTRALINE HCL 50 MG TABLET (FP) PO SCH (10:14)
[2019-02-02] MEDS: PRENATAL VITAMINS W/ FOLIC ACID TABLET (FP) PO SCH (10:14)
[2019-02-02] MEDS: LIDOCAINE 5% TOPICAL PATCH TP SCH (10:15)
[2019-02-02] MEDS: QUEtiapine FUMARATE 50 MG TABLET PO SCH (10:15)
[2019-02-02] MEDS: NEOMYCIN/POLYMYXIN/HC TOPICAL CREAM 7.5 GM TUBE TP SCH (10:16)
[2019-02-02] MEDS: TOLNAFTATE 1% CREAM 15 GM TUBE TP SCH ×2 (10:20→21:15)
[2019-02-02] MEDS: METHYL SALICYLATE/MENTHOL OINT 30 GM TUBE TP SCH ×2 (10:20→21:14)
[2019-02-02] MEDS: QUEtiapine FUMARATE 100 MG TABLET (FP) PO SCH (21:13)
[2019-02-02] MEDS: THIAMINE HCL 100 MG TABLET (FP) PO SCH (21:13)
[2019-02-02] MEDS: LIDOCAINE PATCH REMOVAL MC SCH (21:14)
[2019-02-03] MEDS: BUPRENORPHINE/NALOXONE 8 MG/2 MG FILM PACKET SL SCH ×2 (06:22→19:00)
[2019-02-03] MEDS: IBUPROFEN 400 MG TABLET (FP) PO PRN (06:23)
[2019-02-03] MEDS: CYCLOBENZAPRINE HCL 10 MG TABLET (FP) PO PRN ×2 (06:23→21:07)
[2019-02-03] MEDS: PRENATAL VITAMINS W/ FOLIC ACID TABLET (FP) PO SCH (10:30)
[2019-02-03] MEDS: METHYL SALICYLATE/MENTHOL OINT 30 GM TUBE TP SCH ×2 (10:31→21:06)
[2019-02-03] MEDS: SERTRALINE HCL 50 MG TABLET (FP) PO SCH (10:31)
[2019-02-03] MEDS: cloNIDine HCL 0.1 MG TABLET PO SCH ×2 (10:31→21:05)
[2019-02-03] MEDS: busPIRone HCL 10 MG TABLET (FP) PO SCH ×2 (10:31→21:05)
[2019-02-03] MEDS: HYDROCHLOROTHIAZIDE 25 MG TABLET (FP) PO SCH (10:31)
[2019-02-03] MEDS: PANTOPRAZOLE 20 MG TABLET (FP) PO SCH (10:32)
[2019-02-03] MEDS: LIDOCAINE 5% TOPICAL PATCH TP SCH (10:32)
[2019-02-03] MEDS: NICOTINE 21 MG/24 HOURS TOPICAL PATCH TD SCH (10:32)
[2019-02-03] MEDS: QUEtiapine FUMARATE 50 MG TABLET PO SCH (10:32)
[2019-02-03] MEDS: TOLNAFTATE 1% CREAM 15 GM TUBE TP SCH ×2 (10:33→21:07)
[2019-02-03] MEDS ORDERED: PT OWN MED DRAWER 7, Y5N ONE (10:47)
[2019-02-03] MEDS: THIAMINE HCL 100 MG TABLET (FP) PO SCH (21:05)
[2019-02-03] MEDS: QUEtiapine FUMARATE 100 MG TABLET (FP) PO SCH (21:05)
[2019-02-03] MEDS: LIDOCAINE PATCH REMOVAL MC SCH (21:06)
[2019-02-03] MEDS: MELATONIN 5 MG TABLETS PO PRN (21:06)
[2019-02-03] MEDS: ACETAMINOPHEN 325 MG TABLET (FP) PO PRN (21:08)
[2019-02-04] MEDS: CYCLOBENZAPRINE HCL 10 MG TABLET (FP) PO PRN (06:10)
[2019-02-04] MEDS: IBUPROFEN 400 MG TABLET (FP) PO PRN ×2 (06:10→17:23)
[2019-02-04] MEDS: BUPRENORPHINE/NALOXONE 8 MG/2 MG FILM PACKET SL SCH ×2 (06:10→20:30)
[2019-02-04] MEDS: SERTRALINE HCL 50 MG TABLET (FP) PO SCH (09:03)
[2019-02-04] MEDS: PANTOPRAZOLE 20 MG TABLET (FP) PO SCH (09:03)
[2019-02-04] MEDS: NICOTINE 21 MG/24 HOURS TOPICAL PATCH TD SCH (09:03)
[2019-02-04] MEDS: cloNIDine HCL 0.1 MG TABLET PO SCH (09:03)
[2019-02-04] MEDS: PRENATAL VITAMINS W/ FOLIC ACID TABLET (FP) PO SCH (09:04)
[2019-02-04] MEDS: LIDOCAINE 5% TOPICAL PATCH TP SCH (09:04)
[2019-02-04] MEDS: QUEtiapine FUMARATE 50 MG TABLET PO SCH (09:04)
[2019-02-04] MEDS: busPIRone HCL 10 MG TABLET (FP) PO SCH ×2 (09:04→22:12)
[2019-02-04] MEDS: HYDROCHLOROTHIAZIDE 25 MG TABLET (FP) PO SCH (09:04)
[2019-02-04] MEDS: TOLNAFTATE 1% CREAM 15 GM TUBE TP SCH ×2 (09:08→22:32)
[2019-02-04] MEDS: METHYL SALICYLATE/MENTHOL OINT 30 GM TUBE TP SCH ×2 (09:08→22:31)
[2019-02-04] MEDS: THIAMINE HCL 100 MG TABLET (FP) PO SCH (22:32)
[2019-02-04] MEDS: LIDOCAINE PATCH REMOVAL MC SCH (22:32)
[2019-02-04] MEDS: QUEtiapine FUMARATE 100 MG TABLET (FP) PO SCH (22:32)
[2019-02-05] MEDS: IBUPROFEN 400 MG TABLET (FP) PO PRN (06:15)
[2019-02-05] MEDS: CYCLOBENZAPRINE HCL 10 MG TABLET (FP) PO PRN (06:15)
[2019-02-05] MEDS: BUPRENORPHINE/NALOXONE 8 MG/2 MG FILM PACKET SL SCH ×2 (06:16→19:47)
[2019-02-05] MEDS: busPIRone HCL 10 MG TABLET (FP) PO SCH ×2 (09:53→21:19)
[2019-02-05] MEDS: SERTRALINE HCL 50 MG TABLET (FP) PO SCH (09:53)
[2019-02-05] MEDS: METHYL SALICYLATE/MENTHOL OINT 30 GM TUBE TP SCH ×2 (09:54→21:19)
[2019-02-05] MEDS: HYDROCHLOROTHIAZIDE 25 MG TABLET (FP) PO SCH (09:54)
[2019-02-05] MEDS: QUEtiapine FUMARATE 50 MG TABLET PO SCH (09:54)
[2019-02-05] MEDS: PANTOPRAZOLE 20 MG TABLET (FP) PO SCH (09:54)
[2019-02-05] MEDS: cloNIDine HCL 0.1 MG TABLET PO SCH ×2 (09:55→21:19)
[2019-02-05] MEDS: PRENATAL VITAMINS W/ FOLIC ACID TABLET (FP) PO SCH (09:56)
[2019-02-05] MEDS: NICOTINE 21 MG/24 HOURS TOPICAL PATCH TD SCH (09:57)
[2019-02-05] MEDS: LIDOCAINE 5% TOPICAL PATCH TP SCH (09:58)
[2019-02-05] MEDS: TOLNAFTATE 1% CREAM 15 GM TUBE TP SCH ×2 (09:59→21:20)
[2019-02-05] MEDS: MAG HYDROX/AL HYDROX/SIMETH 30 ML UNIT-DOSE CUP PO PRN (10:07)
[2019-02-05] MEDS: LIDOCAINE PATCH REMOVAL MC SCH (21:19)
[2019-02-05] MEDS: QUEtiapine FUMARATE 100 MG TABLET (FP) PO SCH (21:19)
[2019-02-05] MEDS: THIAMINE HCL 100 MG TABLET (FP) PO SCH (21:20)
[2019-02-05] MEDS: MELATONIN 5 MG TABLETS PO PRN (21:21)
[2019-02-06] MEDS: MAG HYDROX/AL HYDROX/SIMETH 30 ML UNIT-DOSE CUP PO PRN (05:43)
[2019-02-06] MEDS: BUPRENORPHINE/NALOXONE 8 MG/2 MG FILM PACKET SL SCH ×2 (05:43→19:51)
[2019-02-06] MEDS: ACETAMINOPHEN 325 MG TABLET (FP) PO PRN (06:44)
[2019-02-06] MEDS: NICOTINE 21 MG/24 HOURS TOPICAL PATCH TD SCH (10:10)
[2019-02-06] MEDS: SERTRALINE HCL 50 MG TABLET (FP) PO SCH (10:10)
[2019-02-06] MEDS: PRENATAL VITAMINS W/ FOLIC ACID TABLET (FP) PO SCH (10:11)
[2019-02-06] MEDS: busPIRone HCL 10 MG TABLET (FP) PO SCH ×2 (10:11→21:09)
[2019-02-06] MEDS: PANTOPRAZOLE 20 MG TABLET (FP) PO SCH (10:11)
[2019-02-06] MEDS: HYDROCHLOROTHIAZIDE 25 MG TABLET (FP) PO SCH (10:11)
[2019-02-06] MEDS: QUEtiapine FUMARATE 50 MG TABLET PO SCH (10:11)
[2019-02-06] MEDS: cloNIDine HCL 0.1 MG TABLET PO SCH ×2 (10:11→21:09)
[2019-02-06] MEDS: TOLNAFTATE 1% CREAM 15 GM TUBE TP SCH ×2 (10:13→21:10)
[2019-02-06] MEDS: LIDOCAINE 5% TOPICAL PATCH TP SCH (10:13)
[2019-02-06] MEDS: METHYL SALICYLATE/MENTHOL OINT 30 GM TUBE TP SCH ×2 (10:14→21:10)
[2019-02-06] MEDS ORDERED: PT OWN MED DRAWER 7, Y5N ONE (16:57)
[2019-02-06] MEDS: THIAMINE HCL 100 MG TABLET (FP) PO SCH (21:09)
[2019-02-06] MEDS: QUEtiapine FUMARATE 100 MG TABLET (FP) PO SCH (21:09)
[2019-02-06] MEDS: MELATONIN 5 MG TABLETS PO PRN (21:10)
[2019-02-06] MEDS: LIDOCAINE PATCH REMOVAL MC SCH (21:10)
[2019-02-07] MEDS: ACETAMINOPHEN 325 MG TABLET (FP) PO PRN (01:57)
[2019-02-07] MEDS: IBUPROFEN 400 MG TABLET (FP) PO PRN (06:09)
[2019-02-07] MEDS: CYCLOBENZAPRINE HCL 10 MG TABLET (FP) PO PRN (06:10)
[2019-02-07] MEDS: BUPRENORPHINE/NALOXONE 8 MG/2 MG FILM PACKET SL SCH (06:10)
--- NOTE | 2019-02-07 06:10 | PN ---
[facility] Progress Note Note: Patient is discharged today. Scripts for 30 days supply of medications(Zoloft, Buspar, Seroquel) are electronically transmitted to [facility] at [address] [place] [address]
[2019-02-07 07:08] VITALS: TEMP 97.6
[2019-02-07] MEDS ORDERED: PT OWN MED DRAWER 7, Y5N ONE (08:56)
[2019-02-07 09:16] VITALS: BP 111/63; PULSE 79
--- NOTE | 2019-02-07 09:24 | PN ---
[facility] Progress Note Note: PT COMPLETED REHAB AND DISCHARGED TODAY. PT MET WITH HER COUNSELLOR AND HAS BEEN REFERRED TO [facility] FOR CD AFTERCARE. PT REPORTS SHE HAS NO CURRENT PCP. DISCUSSED WITH PT TO FOLLOW UP WITH MEDICAL CARE AT [facility] ON [address] [place] [address]. PT IS ALERT O X 3. DENIES S/H/I. Home Medications Medication Instructions Recorded Omeprazole 40 mg PO DAILY 02/27/17 Albuterol Sulfate Inhaler - 2 inh PO Q4H PRN #1 inhaler 10/10/18 [Ventolin HFA Inhaler -] cloNIDine HCL [Catapres -] 0.1 mg PO BID #14 tablet 10/10/18 Quetiapine Fumarate [Seroquel -] 50 mg PO DAILY #30 tablet 11/08/18 Buspirone HCl [Buspar -] 10 mg PO BID #60 tablet 01/22/19 Quetiapine Fumarate [Seroquel] 100 mg PO HS #30 tablet 01/22/19 Buprenorphine/Naloxone [Suboxone 1 each SL BID@0600,2000 #14 film 02/07/19 8Mg/2Mg Sl Film -] MDD 2 Buspirone HCl [Buspar -] 10 mg PO BID #60 tablet 02/07/19 Quetiapine Fumarate [Seroquel -] 50 mg PO DAILY #30 tablet 02/07/19 Sertraline HCl [Zoloft] 100 mg PO DAILY #30 tablet 02/07/19 Vital Signs - 24 hr 02/06/19 02/07/19 02/07/19 21:05 00:30 03:30 Temperature Pulse Rate 74 Respiratory 18 18 Rate Blood Pressure 115/73 02/07/19 02/07/19 07:07 09:15 Temperature 97.6 F Pulse Rate 59 L 79 Respiratory 18 Rate Blood Pressure 119/62 111/63 Laboratory Tests 01/24/19 01/24/19 00:00 07:40 Urine Color Yellow Urine Appearance Cloudy Urine pH 6.0 Ur Specific [place] 1.018 Urine Protein Negative Urine Glucose (UA) Negative Urine Ketones Negative Urine Blood Negative Urine Nitrite Negative Urine Bilirubin Negative Urine Urobilinogen Negative Ur Leukocyte Esterase 2+ H Urine WBC (Auto) 27 Urine RBC (Auto) 4 Ur Epithelial Cells Many Urine Bacteria Few Urine Mucus Rare HIV 1&2 Antibody Screen Negative HIV P24 Antigen Negative NAD MEDICALLY STABLE PLAN:FOLLOW UP WITH CD AFTERCARE AT [facility] ON 02/07/19 AT 10:00 A.M FOLLOW UP WITH PRIMARY CARE AT [facility] WITHIN 1-2 WEEKS AFTER DISCHARGE
[2019-02-07] MEDS: HYDROCHLOROTHIAZIDE 25 MG TABLET (FP) PO SCH (10:01)
[2019-02-07] MEDS: SERTRALINE HCL 50 MG TABLET (FP) PO SCH (10:01)
[2019-02-07] MEDS: PRENATAL VITAMINS W/ FOLIC ACID TABLET (FP) PO SCH (10:01)
[2019-02-07] MEDS: busPIRone HCL 10 MG TABLET (FP) PO SCH (10:01)
[2019-02-07] MEDS: PANTOPRAZOLE 20 MG TABLET (FP) PO SCH (10:01)
[2019-02-07] MEDS: QUEtiapine FUMARATE 50 MG TABLET PO SCH (10:01)
[2019-02-07] MEDS: LIDOCAINE 5% TOPICAL PATCH TP SCH (10:02)
[2019-02-07] MEDS: cloNIDine HCL 0.1 MG TABLET PO SCH (10:02)
[2019-02-07] MEDS: METHYL SALICYLATE/MENTHOL OINT 30 GM TUBE TP SCH (10:02)
[2019-02-07] MEDS: NICOTINE 21 MG/24 HOURS TOPICAL PATCH TD SCH (10:02)
[2019-02-07] MEDS: TOLNAFTATE 1% CREAM 15 GM TUBE TP SCH (10:02)
== END 2019-02-07 10:40 | disposition home or self-care (01) | DRG 772 ==
LOC: YASAS 12:07 → Y3E 12:08
PROVIDERS: ADMIT Neuromusculoskeletal Medicine & OMM; ATTEND Neuromusculoskeletal Medicine & OMM
PROC: HZ42ZZZ Group Counseling for Substance Abuse Treatment, Cognitive-Behavioral (ICD-10-PCS; principal; 2019-01-23)
DX: F11.23 Opioid dependence with withdrawal (principal); F10.230 Alcohol dependence with withdrawal, uncomplicated; J45.20 Mild intermittent asthma, uncomplicated; B35.3 Tinea pedis; M17.11 Unilateral primary osteoarthritis, right knee; R26.89 Other abnormalities of gait and mobility; Z99.89 Dependence on other enabling machines and devices
CPT/HCPCS: 36415; 81003; 81015; 87389; J0735

== ENCOUNTER 2019-03-07 08:15 | Inpatient (IN) | payer OTHER ==
[2019-03-07 09:31] VITALS: BMI 31.4
--- NOTE | 2019-03-07 09:52 | HP ---
COWS - Scale Resting Pulse: 1= [place] 81-100 Sweatin= Chills/Flushing Restless Observation: 3= Extraneous Movement Pupil Size: 1= Pupils >than Normal Bone or Joint Aches: 2= Severe Diffuse Aches Runny Nose/ Eye Tearin= Runny Nose/Eyes GI Upset > 30mins: 2= Nausea/Diarrhea Tremor Observation: 2= Slight Tremor Visible Yawning Observation: 1= 1-2x During Session Anxiety or Irritability: 2=Irritable/Anxious Goose Flesh Skin: 0=Smooth Skin COWS Score: 17 CIWA Score - Admission Criteria [facility] Guidelines: Admission for Medically Managed Detox: Requires at least one of the followin. CIWA greater than 12 2. Seizures within the past 24 hours 3. Delirium tremens within the past 24 hours 4. Hallucinations within the past 24 hours 5. Acute intervention needed for co occurring medical disorder 6. Acute intervention needed for co occurring psychiatric disorder 7. Severe withdrawal that cannot be handled at a lower level of care (continued vomiting, continued diarrhea, abnormal vital signs) requiring intravenous medication and/or fluids 8. Admission ROS S - [facility] Chief Complaint: i need help to stop using heroin,cocaine,marijuana,xanax abused Allergies/Adverse Reactions: Allergies Allergy/AdvReac Type Severity Reaction Status Date / Time chlordiazepoxide Allergy Verified 03/07/19 09:33 [From Librium] librium Allergy Uncoded 03/07/19 09:33 History of Present Illness: this 48 years old female with heroin,cocaine and marijuana dependence,xanax abused, seeking detox, multiple admissions in detox but keep relapsing,last treatment [facility] 01/18/19 to ,rehab 01/23/19 to 02/07/19 bronchitis ,coughing ,greenish phlegm, bronchial asthma depression and insomnia longest period of sobriety 9 years plan for [facility] low back pain herniated disc with sciatica arthritis - Ebola screening Have you traveled outside of the country in the last 21 days: No Have you had contact with anyone from an Ebola affected area: No - Review of Systems Constitutional: Chills, Loss of Appetite, Malaise, Night Sweats, Changes in sleep EENT: reports: Tearing, Nose Congestion Respiratory: reports: No Symptoms reported, Other (astma,bronchitis) GI: reports: Diarrhea, Nausea, Poor Appetite, Vomiting : reports: No Symptoms Reported Integumentary: reports: Dryness Endocrine: reports: No Symptoms Reported Hematology: reports: No Symptoms Reported Psychiatric: reports: No Sypmtoms Reported, Judgement Intact, Mood/Affect Appropiate, Orientated x3, Depressed (insomnia) Other Systems: Reviewed and Negative Patient History - Patient Medical History Hx Anemia: Yes (no med) Hx Asthma: Yes (on albuterol inhaler) Hx Chronic Obstructive Pulmonary Disease (COPD): No Hx Cancer: Yes (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) Hx Cardiac Disorders: No Hx Congestive Heart Failure: No Hx Hypertension: Yes (non compliance) Hx Hypercholesterolemia: No Hx Pacemaker: No HX Cerebrovascular Accident: No Hx Seizures: No Hx Dementia: No Hx Diabetes: No Hx Gastrointestinal Disorders: Yes (GERD) Hx Liver Disease: No Hx Genitourinary Disorders: No Hx Sexually Transmitted Disorders: No Hx Renal Disease (ESRD): No Hx Thyroid Disease: No Hx Human Immunodeficiency Virus (HIV): No (NEGATIVE HX last 08/17) Hx Hepatitis C: No Hx Depression: Yes (on med) Hx Suicide Attempt: No Hx Bipolar Disorder: No Hx Schizophrenia: No Other Medical History: insomnia,no suicidal,no homicidal - Patient Surgical History Past Surgical History: Yes Hx Neurologic Surgery: No Hx Cataract Extraction: No Hx Cardiac Surgery: No Hx Lung Surgery: No Hx Breast Surgery: No Hx Breast Biopsy: No Hx Abdominal Surgery: No Hx Appendectomy: No Hx Cholecystectomy: Yes (lap in 2006) Hx Genitourinary Surgery: Yes (carcinoma in situ s/p conization in 2013) Hx Section: No Hx Orthopedic Surgery: No Other Surgical History: Pt had a culposcopy. Anesthesia Reaction: No - PPD History Previous Implant?: Yes Documented Results: Negative w/proof Date: 10/08/18 Results: 0mm PPD to be Administered?: No - Reproductive History Patient is a Female of Child Bearing Age (11 -55 yrs old): Yes Last Menstrual Period: 12/21/18 Patient : No - Smoking Cessation Smoking history: Current every day smoker Have you smoked in the past 12 months: Yes Aproximately how many cigarettes per day: 20 Cigars Per Day: 0 Hx Chewing Tobacco Use: No Initiated information on smoking cessation: Yes 'Breaking Loose' booklet given: 03/07/19 - Substance & Tx. History Hx Alcohol Use: No Hx Substance Use: Yes Substance Use Type: Alcohol, Cocaine, Heroin - Substances abused Heroin Substance route: Inhalation Frequency: Daily Amount used: 7 bags Age of first use: 30 Date of last use: 03/07/19 Cocaine Substance route: Inhalation Frequency: Daily Amount used: 7 bags Age of first use: 30 Date of last use: 03/07/19 Alcohol Substance route: Oral Frequency: 1-3 times last 30 days Amount used: 2 beers Age of first use: 47 Date of last use: 03/05/19 Marijuana/Hashish Substance route: Smoking Frequency: Daily Amount used: 5$ Age of first use: 13 Date of last use: 03/06/19 Alprazolam (Xanax) Substance route: Oral Frequency: 1-3 times last 30 days Amount used: 2mgs Age of first use: 48 Date of last use: 03/06/19 Family Disease History - Family Disease History Family Disease History: Heart Disease: Grandparent, Other: Father ( - alcohol), Mother (arthritis) Admission Physical Exam [facility] - Vital Signs Vital Signs: Vital Signs - 24 hr 03/07/19 09:37 Temperature 97.7 F Pulse Rate 82 Respiratory 16 Rate Blood Pressure 160/85 - Physical General Appearance: Yes: Moderate Distress, Thin, Tremorous, Irritable, Sweating , Anxious HEENTM: Yes: Normal ENT Inspection, ANGEL, Pharynx Normal Respiratory: Yes: Lungs Clear, Normal Breath Sounds, No Respiratory Distress Neck: Yes: Within Normal Limits, Supple, Trachea in good position Breast: Yes: Breast Exam Deferred Cardiology: Yes: Within Normal Limits, Regular Rhythm, Regular Rate, S1, S2 Abdominal: Yes: Within Normal Limits, Normal Bowel Sounds, Non Tender, Flat, Other (s/p lap cholecystectomy) Genitourinary: Yes: Within Normal Limits Back: Yes: Muscle Spasm Musculoskeletal: Yes: full range of Motion, Back pain, Joint Stiffness, Muscle Pain Extremities: Yes: Within Normal Limits, Normal Range of Motion, Tremors Neurological: Yes: bioinformatics programmer II-XII NML intact, Fully Oriented, Alert, Motor Strength 5/5 Integumentary: Yes: Dry Lymphatic: Yes: Within Normal Limits - Diagnostic (1) Opioid dependence with withdrawal Current Visit: Yes Status: Acute (2) Asthma Current Visit: No Status: Chronic Qualifiers: Asthma severity: mild Asthma persistence: intermittent Asthma complication type: uncomplicated Qualified Code(s): J45.20 - Mild intermittent asthma, uncomplicated (3) Cannabis dependence Current Visit: Yes Status: Chronic (4) Cocaine dependence Current Visit: Yes Status: Chronic Qualifiers: Substance use status: uncomplicated Qualified Code(s): F14.20 - Cocaine dependence, uncomplicated (5) Low back pain Current Visit: No Status: Chronic Qualifiers: (6) Sciatica Current Visit: No Status: Chronic Qualifiers: Laterality: bilateral Qualified Code(s): M54.31 - Sciatica, right side; M54.32 - Sciatica, left side (7) Bronchitis Current Visit: Yes Status: Acute (8) Depression Current Visit: Yes Status: Acute (9) Insomnia Current Visit: Yes Status: Chronic (10) History of laparoscopic cholecystectomy Current Visit: Yes Status: Acute (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 Current Visit: Yes Status: Acute Cleared for Admission S - Detox or Rehab [facility] Level of Care: Medically Managed Detox Regimen/Protocol: Methadone Breathalyzer - Breathalyzer Breathalyzer: 0 POC Urine test - Test device test lot number: [id number] Expiration date: 07/30/20 - Control test control: Yes - Result Urine Test Results: Negative - NO line present Urine Drug Screen - Test Device Lot number: [id number] Expiration date: 10/29/20 - Control Is test valid?: Yes - Results Drug screen NEGATIVE: No Urine drug screen results: THC-Marijuana, [place]-Cocaine, FEN-Fentanyl, MOP-Opiates , BZO-Benzodiazepines Inpatient Rehab Admission - Rehab Decision to Admit Inpatient rehab admission?: No
[2019-03-07] MEDS ORDERED: cloNIDine HCL 0.1 MG TABLET PO PRN (10:07)
[2019-03-07] MEDS ORDERED: hydrOXYzine PAMOATE 25 MG CAPSULE (FP) PO PRN (10:07)
[2019-03-07] MEDS ORDERED: MENTHOL/PHENOL 1 EACH UD MM PRN (10:07)
[2019-03-07] MEDS ORDERED: MAG HYDROX/AL HYDROX/SIMETH 30 ML UNIT-DOSE CUP PO PRN (10:07)
[2019-03-07] MEDS ORDERED: MELATONIN 5 MG TABLETS PO PRN (10:07)
[2019-03-07] MEDS ORDERED: METHOCARBAMOL 500 MG TABLET PO PRN (10:07)
[2019-03-07] MEDS ORDERED: MAGNESIUM HYDROX 2400MG/30ML ORAL SUSPENSION 30 ML CUP PO PRN (10:07)
[2019-03-07] MEDS ORDERED: ACETAMINOPHEN 325 MG TABLET (FP) PO PRN ×2 (10:07)
[2019-03-07] MEDS ORDERED: MAGNESIUM CITRATE 300 ML BOTTLE PO PRN (10:07)
[2019-03-07] MEDS ORDERED: ALBUTEROL SO4 8 GM HFA INHALER IH PRN (10:17)
[2019-03-07] MEDS ORDERED: predniSONE 20 MG TABLET (UD) PO ONE (10:55)
[2019-03-07] MEDS: HYDROCHLOROTHIAZIDE 25 MG TABLET (FP) PO SCH (11:27)
[2019-03-07] MEDS: diazePAM 5 MG TABLET PO PRN (11:27)
[2019-03-07] MEDS: NICOTINE 21 MG/24 HOURS TOPICAL PATCH TD SCH (11:30)
[2019-03-07] MEDS ORDERED: METHADONE HCL 10 MG TABLET (FOR DETOX USE ONLY) PO ONE ×2 (11:30→23:00)
[2019-03-07] MEDS: IBUPROFEN 400 MG TABLET (FP) PO PRN (12:16)
[2019-03-07] MEDS: BACITRACIN 0.9 GM PACKET TP SCH ×2 (12:16→22:08)
[2019-03-07] MEDS ORDERED: BISMUTH SUBSALICYLATE 262 MG/15 ML BTL PO PRN (12:20)
--- NOTE | 2019-03-07 12:29 | CONSULT ---
[facility] Psychiatric Consult - Data Date of interview: 03/07/19 Admission source: [facility] Identifying data: Readmission to [facility] for this 48 y/o female self- referred for detoxification (heroin, cocaine, cannabis). Interviewed on . Patient is single, a mother of six (two sons and four daughters), undomiciled, unemployed and deprived of any source of income. Substance Abuse History: Confirmed by patient in this interview. Details in current [facility] report as follows : Smoking history: Current every day smoker. Have you smoked in the past 12 months: Yes. Aproximately how many cigarettes per day: 20. Cigars Per Day: 0. Hx Chewing Tobacco Use: No. Initiated information on smoking cessation: Yes. 'Breaking Loose' booklet given: . - Substance & Tx. History. Hx Alcohol Use: No. Hx Substance Use: Yes. Substance Use Type: Alcohol, Cocaine, Heroin. - Substances abused. Heroin. Substance route: Inhalation. Frequency: Daily. Amount used: 7 bags. Age of first use: 30. Date of last use: 03/07/19. Cocaine. Substance route: Inhalation. Frequency: Daily. Amount used: 7 bags. Age of first use: 30. Date of last use: 03/07/19. Alcohol. Substance route: Oral. Frequency: 1- 3 times last 30 days. Amount used: 2 beers. Age of first use: 47. Date of last use: 03/05/19. Marijuana/Hashish. Substance route: Smoking. Frequency : Daily. Amount used: 5$. Age of first use: 13. Date of last use: 03/06/19. Alprazolam (Xanax). Substance route: Oral. Frequency: 1-3 times last 30 days. Amount used: 2mgs. Age of first use: 48. Date of last use: 03/06/19 Medical History: Remarkable for anemia, bronchial asthma, GERD, chronic lumbar pain, sciatica, hypertension, arthritis, antecedent of cholecystectomy, treatment for cervical cancer (conization) and a history of culposcopy. Psychiatric History: Patient denies history of psychiatric hospitalizations. Ms Tolbert endorses MDD and Bipolar Disorder. No OPD care. Patient is prescribed seroquel 50 mg/am + 100 mg/hs by a primary care physician. Denies history of suicide attempts. Physical/Sexual Abuse/Trauma History: Patient declines to discuss this domain. Additional Comment: Urine drug screen results: THC-Marijuana, [place]-Cocaine, FEN- Fentanyl, MOP-Opiates, BZO-Benzodiazepines. Noted. Mental Status Exam - Mental Status Exam Alert and Oriented to: Time, Place, Person Cognitive Function: Grossly Intact Patient Appearance: Well Groomed Mood: Nervous, Withdrawn, Anxious Affect: Mood Congruent, Constricted Patient Behavior: Sedated (midly sedated), Fatigued, Cooperative Speech Pattern: Delayed, Slurred Voice Loudness: Moderately Soft/Quiet Thought Process: Goal Oriented Thought Disorder: Not Present Hallucinations: Denies Suicidal Ideation: Denies Homicidal Ideation: Denies Insight/Judgement: Poor Sleep: Poorly, Difficulty falling asleep Appetite: Poor, Weight loss Gait/Station: Other (slow and unsteady gait) Psychiatric Findings - Problem List ([place] 1, 2,3) (1) Alcohol dependence with uncomplicated withdrawal Current Visit: Yes Status: Acute (2) Opioid dependence with withdrawal Current Visit: Yes Status: Acute (3) Sedative hypnotic or anxiolytic dependence Current Visit: Yes Status: Chronic (4) Cannabis dependence Current Visit: Yes Status: Chronic (5) Cocaine dependence Current Visit: Yes Status: Chronic Qualifiers: Substance use status: uncomplicated Qualified Code(s): F14.20 - Cocaine dependence, uncomplicated (6) Substance induced mood disorder Current Visit: Yes Status: Chronic (7) Insomnia Current Visit: Yes Status: Chronic (8) Non-compliance Current Visit: Yes Status: Chronic - Initial Treatment Plan Initial Treatment Plan: Psychoeducation. Sleep hygiene. Detoxification. Relapse prevention to be discussed [facility] patient when fullly awake. Resume seroquel 50 mg po am + 100 mg po hs (patient's specific request). Side effects/benefits reviewed with patient. Ms Tolbert expresses her agreement with this plan of care. Observation.
--- NOTE | 2019-03-07 16:11 | PN ---
S Progress Note Note: one on one welcome and introduction patient is using cane at home for arthritis of the knees cane ordered encourage change position slowly
[2019-03-07] MEDS: AMOX TR/POT CLAV 875MG/125MG TABLETS (FP) PO SCH (17:26)
[2019-03-07] MEDS: QUEtiapine FUMARATE 50 MG TABLET PO SCH (22:08)
[2019-03-07] MEDS: THIAMINE HCL 100 MG TABLET (FP) PO SCH (22:10)
[2019-03-08] MEDS ORDERED: predniSONE 10 MG TABLET (UD) PO ONE (10:00)
[2019-03-08] MEDS ORDERED: METHADONE HCL 10 MG TABLET (FOR DETOX USE ONLY) PO ONE (10:00)
[2019-03-08] MEDS: PRENATAL VITAMINS W/ FOLIC ACID TABLET (FP) PO SCH (10:33)
[2019-03-08] MEDS: QUEtiapine FUMARATE 50 MG TABLET PO SCH ×2 (10:33→22:23)
[2019-03-08] MEDS: AMOX TR/POT CLAV 875MG/125MG TABLETS (FP) PO SCH ×2 (10:33→17:18)
[2019-03-08] MEDS: BACITRACIN 0.9 GM PACKET TP SCH ×2 (10:34→22:23)
[2019-03-08] MEDS: HYDROCHLOROTHIAZIDE 25 MG TABLET (FP) PO SCH (10:34)
[2019-03-08] MEDS: NICOTINE 21 MG/24 HOURS TOPICAL PATCH TD SCH (10:38)
[2019-03-08] MEDS: IBUPROFEN 400 MG TABLET (FP) PO PRN (10:45)
[2019-03-08 10:47] LABS: HEMATOCRIT 40.5 % (32.4-45.2); HEMOGLOBIN 13.4 GM/dL (10.7-15.3); MCH 29.6 pg (25.7-33.7); MCHC 33.2 g/dl (32.0-36.0); MEAN CELL VOLUME 89.1 fl (80-96); MEAN PLT VOLUME 9.4 fl (7.5-11.1); PLATELET COUNT 344 K/MM3 (134-434); RBC 4.55 M/mm3 (3.60-5.2); RDW 14.8 % (11.6-15.6); WHITE BLOOD COUNT 10.4 K/mm3 (4.0-10.0)
[2019-03-08 10:51] LABS: ALBUMIN 3.6 g/dl (3.4-5.0); ALK PHOS 107 U/L (45-117); ANION GAP 7 MMOL/L (8-16); BILIRUBIN,TOTAL 0.3 mg/dL (0.2-1); BLOOD UREA NITROGEN 18 mg/dL (7-18); CALCIUM 9.5 mg/dL (8.5-10.1); CHLORIDE 101 mmol/L (98-107); CO2 29 mmol/L (21-32); CREATININE 0.7 mg/dL (0.55-1.3); GLUCOSE,RANDOM 97 mg/dL (74-106); SGOT/AST 13 U/L (15-37); SGPT/ALT 15 U/L (13-61); SODIUM 137 mmol/L (136-145); TOT PROT 7.6 g/dl (6.4-8.2)
--- NOTE | 2019-03-08 14:28 | PN ---
S COWS - Scale Resting Pulse: 1= [place] 81-100 Sweatin= Chills/Flushing Restless Observation: 0= Sits Still Pupil Size: 1= Pupils >than Normal Bone or Joint Aches: 1= Mild Discomfort Runny Nose/ Eye Tearin= Nasal Congestion GI Upset > 30mins: 1= Stomach Cramp Tremor Observation of Outstretched Hands: 2= Slight Tremor Visible Yawning Observation: 1= 1-2x During Session Anxiety or Irritability: 1=Feels Anxious/Irritable Goose Flesh Skin: 3=Piloerection COWS Score: 13 BHS Progress Note (SOAP) Subjective: feeling numbness to both hands +2 pulses free range of motion no bruises skin intact brisk capillary refilled Objective: 03/08/19 14:29 Vital Signs Temperature 97.6 F 03/08/19 13:25 Pulse Rate 89 03/08/19 13:25 Respiratory Rate 16 03/08/19 13:25 Blood Pressure 119/64 03/08/19 13:25 O2 Sat by Pulse Oximetry (%) Laboratory Last Values WBC 10.4 K/mm3 (4.0-10.0) H 03/08/19 07:00 RBC 4.55 M/mm3 (3.60-5.2) 03/08/19 07:00 Hgb 13.4 GM/dL (10.7-15.3) 03/08/19 07:00 Hct 40.5 % (32.4-45.2) 03/08/19 07:00 MCV 89.1 fl (80-96) 03/08/19 07:00 MCH 29.6 pg (25.7-33.7) 03/08/19 07:00 MCHC 33.2 g/dl (32.0-36.0) 03/08/19 07:00 RDW 14.8 % (11.6-15.6) 03/08/19 07:00 Plt Count 344 K/MM3 (134-434) D 03/08/19 07:00 MPV 9.4 fl (7.5-11.1) 03/08/19 07:00 Sodium 137 mmol/L (136-145) 03/08/19 07:00 Potassium 4.0 mmol/L (3.5-5.1) 03/08/19 07:00 Chloride 101 mmol/L (98-107) 03/08/19 07:00 Carbon Dioxide 29 mmol/L (21-32) 03/08/19 07:00 Anion Gap 7 MMOL/L (8-16) L 03/08/19 07:00 BUN 18 mg/dL (7-18) 03/08/19 07:00 Creatinine 0.7 mg/dL (0.55-1.3) 03/08/19 07:00 Creat Clearance w eGFR 88.57 (>60) 03/08/19 07:00 Random Glucose 97 mg/dL (74-106) 03/08/19 07:00 Calcium 9.5 mg/dL (8.5-10.1) 03/08/19 07:00 Total Bilirubin 0.3 mg/dL (0.2-1) 03/08/19 07:00 AST 13 U/L (15-37) L 03/08/19 07:00 ALT 15 U/L (13-61) 03/08/19 07:00 Alkaline Phosphatase 107 U/L (45-117) 03/08/19 07:00 Total Protein 7.6 g/dl (6.4-8.2) 03/08/19 07:00 Albumin 3.6 g/dl (3.4-5.0) 03/08/19 07:00 RPR Titer Nonreactive (NONREACTIVE) 03/08/19 07:00 lab noted Assessment: 03/08/19 14:29 withdrawal sx 03/08/19 14:30 numbness of hands Plan: continue detox warm compress to hands
[2019-03-08] MEDS: diazePAM 5 MG TABLET PO PRN ×2 (17:22→22:23)
[2019-03-08] MEDS: THIAMINE HCL 100 MG TABLET (FP) PO SCH (22:23)
[2019-03-09] MEDS: diazePAM 5 MG TABLET PO PRN ×3 (09:09→22:21)
[2019-03-09] MEDS: AMOX TR/POT CLAV 875MG/125MG TABLETS (FP) PO SCH ×2 (09:09→17:19)
[2019-03-09] MEDS ORDERED: METHADONE HCL 10 MG TABLET (FOR DETOX USE ONLY) PO ONE (10:00)
[2019-03-09] MEDS ORDERED: predniSONE 20 MG TABLET (UD) PO ONE (10:00)
[2019-03-09] MEDS: HYDROCHLOROTHIAZIDE 25 MG TABLET (FP) PO SCH (10:27)
[2019-03-09] MEDS: QUEtiapine FUMARATE 50 MG TABLET PO SCH ×2 (10:27→22:20)
[2019-03-09] MEDS: BACITRACIN 0.9 GM PACKET TP SCH ×2 (10:27→22:20)
[2019-03-09] MEDS: PRENATAL VITAMINS W/ FOLIC ACID TABLET (FP) PO SCH (10:28)
[2019-03-09] MEDS: IBUPROFEN 400 MG TABLET (FP) PO PRN ×2 (10:29→17:20)
[2019-03-09] MEDS: NICOTINE 21 MG/24 HOURS TOPICAL PATCH TD SCH (10:30)
--- NOTE | 2019-03-09 15:43 | PN ---
BHS COWS - Scale Resting Pulse: 1= [place] 81-100 Sweatin= No chills or Flushing Restless Observation: 1= Difficult to Sit Still Pupil Size: 0= Normal to Room Light Bone or Joint Aches: 1= Mild Discomfort Runny Nose/ Eye Tearin= Nasal Congestion GI Upset > 30mins: 1= Stomach Cramp Tremor Observation of Outstretched Hands: 1= Tremor [place], Not Seen Yawning Observation: 0= None Anxiety or Irritability: 1=Feels Anxious/Irritable Goose Flesh Skin: 0=Smooth Skin COWS Score: 7 BHS Progress Note (SOAP) Subjective: pt states she is doing well with detox protocol, less Sx, getting treatment for bronchitis. 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 rehab- to d /w counselor O: Vital Signs - 24 hr 03/08/19 03/08/19 03/09/19 18:11 21:45 00:30 Temperature 98.6 F 98.3 F Pulse Rate 105 H 96 H Respiratory 18 16 18 Rate Blood Pressure 135/63 156/76 03/09/19 03/09/19 03/09/19 03:30 06:36 09:43 Temperature 97.7 F 98.2 F Pulse Rate 78 107 H Respiratory 18 18 20 Rate Blood Pressure 141/77 126/67 Laboratory Tests 03/08/19 03/08/19 03/08/19 07:00 07:00 07:00 WBC 10.4 H RBC 4.55 Hgb 13.4 Hct 40.5 MCV 89.1 MCH 29.6 MCHC 33.2 RDW 14.8 Plt Count 344 D MPV 9.4 Sodium 137 Potassium 4.0 Chloride 101 Carbon Dioxide 29 Anion Gap 7 L BUN 18 Creatinine 0.7 Creat Clearance w eGFR 88.57 Random Glucose 97 Calcium 9.5 Total Bilirubin 0.3 AST 13 L ALT 15 Alkaline Phosphatase 107 Total Protein 7.6 Albumin 3.6 RPR Titer Nonreactive a/p: continue detox protocol d.c planning to d/w counselor
[2019-03-09] MEDS: ALBUTEROL SO4 2.5/IPRATROPIUM 0.5 INH SOL 3 ML VIAL.NEB. NEB PRN (16:15)
[2019-03-09 16:30] LABS: EPI CELLS 10.2 /HPF (0-5/HPF); URINE APPEARANCE CLEAR; URINE BACTERIA 31.7 /hpf (NEGATIVE); URINE BILIRUBIN NEGATIVE (NEGATIVE); URINE CASTS 9 /hpf (0-8); URINE COLOR YELLOW; URINE GLUCOSE (UA) NEGATIVE (NEGATIVE); URINE KETONE NEGATIVE (NEGATIVE); URINE LEUK ESTERASE TRACE (NEGATIVE); URINE NITRITE NEGATIVE (NEGATIVE); URINE PROTEIN NEGATIVE (NEGATIVE); URINE RBC 1 /hpf (0-4); URINE UROBILINOGEN 0.2 mg/dL (0.2-1.0); URINE WBC 5 /hpf (0-5)
[2019-03-09 17:16] LABS: URINE CRYSTALS CALCIUM OXALATES /hpf
[2019-03-09] MEDS: guaiFENesin 200 MG/10 ML 10 ML UNIT-DOSE CUPS PO PRN (17:22)
[2019-03-09] MEDS: THIAMINE HCL 100 MG TABLET (FP) PO SCH (22:20)
[2019-03-10] MEDS: IBUPROFEN 400 MG TABLET (FP) PO PRN (07:34)
[2019-03-10] MEDS: AMOX TR/POT CLAV 875MG/125MG TABLETS (FP) PO SCH ×2 (07:34→18:22)
[2019-03-10] MEDS ORDERED: predniSONE 10 MG TABLET (UD) PO ONE (10:00)
[2019-03-10] MEDS ORDERED: METHADONE HCL 10 MG TABLET (FOR DETOX USE ONLY) PO ONE (10:00)
[2019-03-10] MEDS: HYDROCHLOROTHIAZIDE 25 MG TABLET (FP) PO SCH (10:25)
[2019-03-10] MEDS: BACITRACIN 0.9 GM PACKET TP SCH (10:25)
[2019-03-10] MEDS: QUEtiapine FUMARATE 50 MG TABLET PO SCH (10:25)
[2019-03-10] MEDS: PRENATAL VITAMINS W/ FOLIC ACID TABLET (FP) PO SCH (10:25)
[2019-03-10] MEDS: NICOTINE 21 MG/24 HOURS TOPICAL PATCH TD SCH (10:26)
[2019-03-10] MEDS: guaiFENesin 200 MG/10 ML 10 ML UNIT-DOSE CUPS PO PRN (10:31)
[2019-03-10] MEDS: hydrOXYzine HCL 25 MG TABLET (FP) PO PRN ×2 (10:33→18:22)
[2019-03-10] MEDS: ALBUTEROL SO4 2.5/IPRATROPIUM 0.5 INH SOL 3 ML VIAL.NEB. NEB PRN (11:53)
--- NOTE | 2019-03-10 15:55 | PN ---
S CIWA - CIWA Score Nausea/Vomitin-No Nausea/No Vomiting Muscle Tremors: 1-None Visible, but [place] Anxiety: 1-Mildly Anxious Agitation: 1-Slight > Activity Paroxysmal Sweats: No Perspiration Orientation: 0-Oriented Tacttile Disturbances: 0-None Auditory Disturbances: 0-None Visual Disturbances: 0-None Headache: 0-None Present CIWA-Ar Total Score: 3 BHS Progress Note (SOAP) Subjective: feeling better does not like the food for today patient requesting ensure x 1 Objective: 03/10/19 15:55 Vital Signs Temperature 98.6 F 03/10/19 13:31 Pulse Rate 101 H 03/10/19 13:31 Respiratory Rate 18 03/10/19 13:31 Blood Pressure 133/79 03/10/19 13:31 O2 Sat by Pulse Oximetry (%) 94 L 03/10/19 12:23 Laboratory Last Values WBC 10.4 K/mm3 (4.0-10.0) H 03/08/19 07:00 RBC 4.55 M/mm3 (3.60-5.2) 03/08/19 07:00 Hgb 13.4 GM/dL (10.7-15.3) 03/08/19 07:00 Hct 40.5 % (32.4-45.2) 03/08/19 07:00 MCV 89.1 fl (80-96) 03/08/19 07:00 MCH 29.6 pg (25.7-33.7) 03/08/19 07:00 MCHC 33.2 g/dl (32.0-36.0) 03/08/19 07:00 RDW 14.8 % (11.6-15.6) 03/08/19 07:00 Plt Count 344 K/MM3 (134-434) D 03/08/19 07:00 MPV 9.4 fl (7.5-11.1) 03/08/19 07:00 Sodium 137 mmol/L (136-145) 03/08/19 07:00 Potassium 4.0 mmol/L (3.5-5.1) 03/08/19 07:00 Chloride 101 mmol/L (98-107) 03/08/19 07:00 Carbon Dioxide 29 mmol/L (21-32) 03/08/19 07:00 Anion Gap 7 MMOL/L (8-16) L 03/08/19 07:00 BUN 18 mg/dL (7-18) 03/08/19 07:00 Creatinine 0.7 mg/dL (0.55-1.3) 03/08/19 07:00 Creat Clearance w eGFR 88.57 (>60) 03/08/19 07:00 Random Glucose 97 mg/dL (74-106) 03/08/19 07:00 Calcium 9.5 mg/dL (8.5-10.1) 03/08/19 07:00 Total Bilirubin 0.3 mg/dL (0.2-1) 03/08/19 07:00 AST 13 U/L (15-37) L 03/08/19 07:00 ALT 15 U/L (13-61) 03/08/19 07:00 Alkaline Phosphatase 107 U/L (45-117) 03/08/19 07:00 Total Protein 7.6 g/dl (6.4-8.2) 03/08/19 07:00 Albumin 3.6 g/dl (3.4-5.0) 03/08/19 07:00 Urine Color Yellow 03/09/19 10:15 Urine Appearance Clear 03/09/19 10:15 Urine pH 5.0 (5.0-8.0) 03/09/19 10:15 Ur Specific [place] 1.018 (1.010-1.035) 03/09/19 10:15 Urine Protein Negative (NEGATIVE) 03/09/19 10:15 Urine Glucose (UA) Negative (NEGATIVE) 03/09/19 10:15 Urine Ketones Negative (NEGATIVE) 03/09/19 10:15 Urine Blood Negative (NEGATIVE) 03/09/19 10:15 Urine Nitrite Negative (NEGATIVE) 03/09/19 10:15 Urine Bilirubin Negative (NEGATIVE) 03/09/19 10:15 Urine Urobilinogen 0.2 mg/dL (0.2-1.0) 03/09/19 10:15 Ur Leukocyte Esterase Trace (NEGATIVE) 03/09/19 10:15 Urine WBC (Auto) 5 /hpf (0-5) 03/09/19 10:15 Urine RBC (Auto) 1 /hpf (0-4) 03/09/19 10:15 Urine Casts (Auto) 9 /hpf (0-8) 03/09/19 10:15 U Epithel Cells (Auto) 10.2 /HPF (0-5/HPF) 03/09/19 10:15 Urine Crystals (Auto) Calcium oxalates /hpf 03/09/19 10:15 Urine Bacteria (Auto) 31.7 /hpf (NEGATIVE) 03/09/19 10:15 RPR Titer Nonreactive (NONREACTIVE) 03/08/19 07:00 lab noted Assessment: 03/10/19 15:55 mild withdrawal sx Plan: continue detox
[2019-03-10 18:20] VITALS: BP 117/63; PULSE 88; TEMP 98.4
--- NOTE | 2019-03-10 18:51 | DS ---
[facility] Detox Discharge Summary Admission Date: 03/07/19 Discharge Date: 03/10/19 - History Present History: Alcohol Dependence, Opioid Dependence Additional Comments: Patient medically stable. Patient to follow up with primary care provider in the community. Follow up with out patient referrals. If worsening symptoms are present seek medical attention. Pertinent Past History: Vital Signs Temperature 98.4 F 03/10/19 18:19 Pulse Rate 88 03/10/19 18:19 Respiratory Rate 16 03/10/19 18:19 Blood Pressure 117/63 03/10/19 18:19 O2 Sat by Pulse Oximetry (%) 94 L 03/10/19 12:23 Laboratory Last Values WBC 10.4 K/mm3 (4.0-10.0) H 03/08/19 07:00 RBC 4.55 M/mm3 (3.60-5.2) 03/08/19 07:00 Hgb 13.4 GM/dL (10.7-15.3) 03/08/19 07:00 Hct 40.5 % (32.4-45.2) 03/08/19 07:00 MCV 89.1 fl (80-96) 03/08/19 07:00 MCH 29.6 pg (25.7-33.7) 03/08/19 07:00 MCHC 33.2 g/dl (32.0-36.0) 03/08/19 07:00 RDW 14.8 % (11.6-15.6) 03/08/19 07:00 Plt Count 344 K/MM3 (134-434) D 03/08/19 07:00 MPV 9.4 fl (7.5-11.1) 03/08/19 07:00 Sodium 137 mmol/L (136-145) 03/08/19 07:00 Potassium 4.0 mmol/L (3.5-5.1) 03/08/19 07:00 Chloride 101 mmol/L (98-107) 03/08/19 07:00 Carbon Dioxide 29 mmol/L (21-32) 03/08/19 07:00 Anion Gap 7 MMOL/L (8-16) L 03/08/19 07:00 BUN 18 mg/dL (7-18) 03/08/19 07:00 Creatinine 0.7 mg/dL (0.55-1.3) 03/08/19 07:00 Creat Clearance w eGFR 88.57 (>60) 03/08/19 07:00 Random Glucose 97 mg/dL (74-106) 03/08/19 07:00 Calcium 9.5 mg/dL (8.5-10.1) 03/08/19 07:00 Total Bilirubin 0.3 mg/dL (0.2-1) 03/08/19 07:00 AST 13 U/L (15-37) L 03/08/19 07:00 ALT 15 U/L (13-61) 03/08/19 07:00 Alkaline Phosphatase 107 U/L (45-117) 03/08/19 07:00 Total Protein 7.6 g/dl (6.4-8.2) 03/08/19 07:00 Albumin 3.6 g/dl (3.4-5.0) 03/08/19 07:00 Urine Color Yellow 03/09/19 10:15 Urine Appearance Clear 03/09/19 10:15 Urine pH 5.0 (5.0-8.0) 03/09/19 10:15 Ur Specific [place] 1.018 (1.010-1.035) 03/09/19 10:15 Urine Protein Negative (NEGATIVE) 03/09/19 10:15 Urine Glucose (UA) Negative (NEGATIVE) 03/09/19 10:15 Urine Ketones Negative (NEGATIVE) 03/09/19 10:15 Urine Blood Negative (NEGATIVE) 03/09/19 10:15 Urine Nitrite Negative (NEGATIVE) 03/09/19 10:15 Urine Bilirubin Negative (NEGATIVE) 03/09/19 10:15 Urine Urobilinogen 0.2 mg/dL (0.2-1.0) 03/09/19 10:15 Ur Leukocyte Esterase Trace (NEGATIVE) 03/09/19 10:15 Urine WBC (Auto) 5 /hpf (0-5) 03/09/19 10:15 Urine RBC (Auto) 1 /hpf (0-4) 03/09/19 10:15 Urine Casts (Auto) 9 /hpf (0-8) 03/09/19 10:15 U Epithel Cells (Auto) 10.2 /HPF (0-5/HPF) 03/09/19 10:15 Urine Crystals (Auto) Calcium oxalates /hpf 03/09/19 10:15 Urine Bacteria (Auto) 31.7 /hpf (NEGATIVE) 03/09/19 10:15 RPR Titer Nonreactive (NONREACTIVE) 03/08/19 07:00 - Physical Exam Results Vital Signs: Vital Signs Temperature 98.4 F 03/10/19 18:19 Pulse Rate 88 03/10/19 18:19 Respiratory Rate 16 03/10/19 18:19 Blood Pressure 117/63 03/10/19 18:19 O2 Sat by Pulse Oximetry (%) 94 L 03/10/19 12:23 - Treatment Hospital Course: Detox Protocol Followed, Detoxed Safely, Responded well, Discharged Condition Good, Rehab Referral Accepted Patient has Accepted a Rehab Referral to: Follow up with out patient referrals - Medication Discharge Medications: Ambulatory Orders Omeprazole 40 mg PO DAILY 02/27/17 Albuterol Sulfate Inhaler - [Ventolin HFA Inhaler -] 2 inh PO Q4H PRN #1 inhaler 10/10/18 cloNIDine HCL [Catapres -] 0.1 mg PO BID #14 tablet 10/10/18 Quetiapine Fumarate [Seroquel -] 50 mg PO DAILY #30 tablet 11/08/18 Quetiapine Fumarate [Seroquel -] 100 mg PO HS 03/07/19 - Diagnosis (1) Alcohol dependence with uncomplicated withdrawal Current Visit: Yes Status: Acute (2) Bronchitis Current Visit: Yes Status: Acute (3) Opioid dependence with withdrawal Current Visit: Yes Status: Acute (4) Cannabis dependence Current Visit: Yes Status: Chronic (5) Cocaine dependence Current Visit: Yes Status: Chronic Qualifiers: Substance use status: uncomplicated Qualified Code(s): F14.20 - Cocaine dependence, uncomplicated (6) GERD (gastroesophageal reflux disease) Current Visit: No Status: Chronic Qualifiers: Esophagitis presence: without esophagitis Qualified Code(s): K21.9 - Gastro -esophageal reflux disease without esophagitis (7) History of anemia Current Visit: No Status: Chronic - AMA Did Patient Leave Against Medical Advice: No
[2019-03-11] MEDS ORDERED: METHADONE HCL 5 MG TABLET (FOR DETOX USE ONLY) PO ONE (06:00)
[2019-03-11] MEDS ORDERED: predniSONE 5 MG TABLET (UD) PO ONE (10:00)
== END 2019-03-10 19:02 | disposition home or self-care (01) | DRG 773 ==
LOC: YASAS 08:15 → Y3N 10:21
PROVIDERS: ADMIT Surgery; ATTEND Surgery
PROC: HZ2ZZZZ Detoxification Services for Substance Abuse Treatment (ICD-10-PCS; principal; 2019-03-07)
DX: F11.23 Opioid dependence with withdrawal (principal); F10.230 Alcohol dependence with withdrawal, uncomplicated; F13.20 Sedative, hypnotic or anxiolytic dependence, uncomplicated; F14.20 Cocaine dependence, uncomplicated; F12.20 Cannabis dependence, uncomplicated; F17.210 Nicotine dependence, cigarettes, uncomplicated; F19.24 Other psychoactive substance dependence with psychoactive substance-induced mood disorder; F32.9 Major depressive disorder, single episode, unspecified; J20.9 Acute bronchitis, unspecified; J45.909 Unspecified asthma, uncomplicated; K21.9 Gastro-esophageal reflux disease without esophagitis; R20.0 Anesthesia of skin; G47.00 Insomnia, unspecified; D06.9 Carcinoma in situ of cervix, unspecified; M54.42 Lumbago with sciatica, left side; M54.41 Lumbago with sciatica, right side; G89.29 Other chronic pain
CPT/HCPCS: 36415; 80053; 81003; 85027; 86593; 94640; J0735

== ENCOUNTER 2019-04-11 13:16 | Inpatient (IN) | payer SELFPAY ==
[2019-04-11 14:21] VITALS: BMI 30.1
--- NOTE | 2019-04-11 15:05 | HP ---
COWS - Scale Resting Pulse: 1= [place] 81-100 Sweatin= Chills/Flushing Restless Observation: 1= Difficult to Sit Still Pupil Size: 1= Pupils >than Normal Bone or Joint Aches: 2= Severe Diffuse Aches Runny Nose/ Eye Tearin= Runny Nose/Eyes GI Upset > 30mins: 2= Nausea/Diarrhea Tremor Observation: 2= Slight Tremor Visible Yawning Observation: 1= 1-2x During Session Anxiety or Irritability: 2=Irritable/Anxious Goose Flesh Skin: 0=Smooth Skin COWS Score: 15 CIWA Score - Admission Criteria OASAS Guidelines: Admission for Medically Managed Detox: Requires at least one of the followin. CIWA greater than 12 2. Seizures within the past 24 hours 3. Delirium tremens within the past 24 hours 4. Hallucinations within the past 24 hours 5. Acute intervention needed for co occurring medical disorder 6. Acute intervention needed for co occurring psychiatric disorder 7. Severe withdrawal that cannot be handled at a lower level of care (continued vomiting, continued diarrhea, abnormal vital signs) requiring intravenous medication and/or fluids 8. Admission ROS S - HPI Chief Complaint: i need help to stop using heroin,cocaine and marijuana Allergies/Adverse Reactions: Allergies Allergy/AdvReac Type Severity Reaction Status Date / Time chlordiazepoxide Allergy Verified 04/11/19 14:07 [From Librium] librium Allergy Uncoded 04/11/19 14:07 History of Present Illness: this 48 years old female with heroin,cocaine and marijuana dependence,seeking detox,withdrawal symptom, multiple admissions in detox last treatment 03/07/19 03/10/19 keep relapsing bipolar disorder no significant period sobriety nicotine dependence 1/2 pack,would like nicotine patch asthma on albuterol inhaler plan for rehab after detox Exam Limitations: No Limitations - Ebola screening Have you traveled outside of the country in the last 21 days: No Have you had contact with anyone from an Ebola affected area: No - Review of Systems Constitutional: Chills, Loss of Appetite, Malaise, Night Sweats, Changes in sleep, Weakness EENT: reports: Tearing, Nose Congestion Respiratory: reports: No Symptoms reported, Other (asthma) Cardiac: reports: No Symptoms Reported GI: reports: Diarrhea, Nausea, Vomiting, Abdominal cramping : reports: No Symptoms Reported Musculoskeletal: reports: Back Pain, Muscle Pain, Other (arthritis both knees) Integumentary: reports: Dryness Neuro: reports: Headache, Tremors Endocrine: reports: No Symptoms Reported Hematology: reports: No Symptoms Reported Psychiatric: reports: No Sypmtoms Reported, Judgement Intact, Mood/Affect Appropiate, Orientated x3, other Other Systems: Reviewed and Negative Patient History - Patient Medical History Hx Anemia: Yes (no med) Hx Asthma: Yes (on albuterol inhaler) Hx Chronic Obstructive Pulmonary Disease (COPD): No Hx Cancer: Yes (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) Hx Cardiac Disorders: No Hx Congestive Heart Failure: No Hx Hypertension: Yes (non compliance) Hx Hypercholesterolemia: No Hx Pacemaker: No HX Cerebrovascular Accident: No Hx Seizures: No Hx Dementia: No Hx Diabetes: No Hx Gastrointestinal Disorders: Yes (GERD) Hx Liver Disease: No Hx Genitourinary Disorders: No Hx Sexually Transmitted Disorders: No Hx Renal Disease (ESRD): No Hx Thyroid Disease: No Hx Human Immunodeficiency Virus (HIV): No (NEGATIVE HX last 02/15) Hx Hepatitis C: No Hx Depression: Yes (on med) Hx Suicide Attempt: No Hx Bipolar Disorder: No Hx Schizophrenia: No Other Medical History: no sucidal,no homicidal,arthritis both knees - Patient Surgical History Past Surgical History: Yes Hx Neurologic Surgery: No Hx Cataract Extraction: No Hx Cardiac Surgery: No Hx Lung Surgery: No Hx Breast Surgery: No Hx Breast Biopsy: No Hx Abdominal Surgery: No Hx Appendectomy: No Hx Cholecystectomy: Yes (lap in 2006) Hx Genitourinary Surgery: Yes (carcinoma in situ s/p conization in 2013) Hx Section: No Hx Orthopedic Surgery: No Other Surgical History: Pt had a culposcopy. Anesthesia Reaction: No - PPD History Previous Implant?: Yes Documented Results: Negative w/proof Implanted On Prior R Admission?: Yes Date: 10/08/18 Results: 0mm PPD to be Administered?: No - Reproductive History Patient is a Female of Child Bearing Age (11 -55 yrs old): Yes Last Menstrual Period: 04/01/19 Patient : No - Smoking Cessation Smoking history: Current every day smoker Have you smoked in the past 12 months: Yes Aproximately how many cigarettes per day: 20 Cigars Per Day: 0 Hx Chewing Tobacco Use: No Initiated information on smoking cessation: Yes 'Breaking Loose' booklet given: 04/11/19 - Substance & Tx. History Hx Alcohol Use: No Hx Substance Use: Yes Substance Use Type: Cocaine, Heroin, Marijuana Hx Substance Use Treatment: Yes ([facility] 03/07/19 to 03/10/19) - Substances abused Heroin Substance route: Inhalation Frequency: Daily Amount used: 9 bags Age of first use: 30 Date of last use: 04/10/19 Cocaine Substance route: Inhalation Frequency: Daily Amount used: 7 bags Age of first use: 30 Date of last use: 04/10/19 Alcohol Substance route: Oral Frequency: 1-3 times last 30 days Amount used: 2 beers Age of first use: 47 Date of last use: 03/05/19 Marijuana/Hashish Substance route: Smoking Frequency: Daily Amount used: 5$ Age of first use: 13 Date of last use: 04/10/19 Alprazolam (Xanax) Substance route: Oral Frequency: 1-3 times last 30 days Amount used: 2mgs Age of first use: 48 Date of last use: 03/06/19 Other Other (specify): klonopin Substance route: Oral Frequency: Daily Amount used: 1mg Age of first use: 48 Date of last use: 04/04/19 Family Disease History - Family Disease History Family Disease History: Heart Disease: Grandparent, Other: Father ( - alcohol), Mother (arthritis) Admission Physical Exam S - Vital Signs Vital Signs: Vital Signs - 24 hr 04/11/19 14:12 Temperature 97.7 F Pulse Rate 88 Respiratory 18 Rate Blood Pressure 116/70 - Physical General Appearance: Yes: Moderate Distress, Tremorous, Irritable, Sweating, Anxious HEENTM: Yes: Normal ENT Inspection, ANGEL, Pharynx Normal Respiratory: Yes: Lungs Clear, Normal Breath Sounds, No Respiratory Distress Neck: Yes: Within Normal Limits, Supple, Trachea in good position Breast: Yes: Breast Exam Deferred Cardiology: Yes: Within Normal Limits, Regular Rhythm, Regular Rate, S1, S2 Abdominal: Yes: Within Normal Limits, Normal Bowel Sounds, Non Tender, Soft, Surgical Scar (s/p lap cholecystectomy) Genitourinary: Yes: Within Normal Limits Back: Yes: Normal Inspection, Muscle Spasm Musculoskeletal: Yes: full range of Motion, Joint Stiffness, Muscle Pain, Other (pain in both knees) Extremities: Yes: Tremors 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 intact, Fully Oriented, Alert, Motor Strength 5/5 Integumentary: Yes: Dry Lymphatic: Yes: Within Normal Limits - Diagnostic (1) Opioid dependence with withdrawal Current Visit: No Status: Acute (2) Cocaine dependence Current Visit: Yes Status: Acute (3) Cannabis dependence Current Visit: No Status: Chronic (4) Carcinoma uterine cervix in situ Current Visit: No Status: Acute (5) History of laparoscopic cholecystectomy Current Visit: No Status: Acute (6) Arthritis Current Visit: No Status: Chronic (7) Asthma Current Visit: No Status: Chronic Qualifiers: Asthma severity: mild Asthma persistence: intermittent Asthma complication type: uncomplicated Qualified Code(s): J45.20 - Mild intermittent asthma, uncomplicated (8) Bipolar disorder Current Visit: No Status: Chronic (9) Alcohol abuse Current Visit: Yes Status: Acute (10) Cervical cancer Current Visit: No Status: Chronic (11) Low back pain Current Visit: No Status: Chronic Qualifiers: (12) Sciatica Current Visit: No Status: Chronic Qualifiers: Laterality: bilateral Qualified Code(s): M54.31 - Sciatica, right side; M54.32 - Sciatica, left side Cleared for Admission [facility] - Detox or Rehab [facility] Level of Care: Medically Managed Detox Regimen/Protocol: Methadone Breathalyzer - Breathalyzer Breathalyzer: 0 POC Urine test - Test device test lot number: [id number] Expiration date: 07/30/20 - Control test control: Yes Urine Drug Screen - Test Device Lot number: [id number] Expiration date: 12/30/20 - Control Is test valid?: Yes - Results Drug screen NEGATIVE: No Urine drug screen results: THC-Marijuana, CLINTON-Cocaine, FEN-Fentanyl, MOP-Opiates , OXY-Oxycodone, BZO-Benzodiazepines, BUP-Suboxone Inpatient Rehab Admission - Rehab Decision to Admit Inpatient rehab admission?: No
[2019-04-11] MEDS ORDERED: MENTHOL/PHENOL 1 EACH UD MM PRN (15:21)
[2019-04-11] MEDS ORDERED: MAG HYDROX/AL HYDROX/SIMETH 30 ML UNIT-DOSE CUP PO PRN (15:21)
[2019-04-11] MEDS ORDERED: MELATONIN 5 MG TABLETS PO PRN (15:21)
[2019-04-11] MEDS ORDERED: MAGNESIUM HYDROX 2400MG/30ML ORAL SUSPENSION 30 ML CUP PO PRN (15:21)
[2019-04-11] MEDS ORDERED: MAGNESIUM CITRATE 300 ML BOTTLE PO PRN (15:21)
[2019-04-11] MEDS ORDERED: IBUPROFEN 400 MG TABLET (FP) PO PRN (15:21)
[2019-04-11] MEDS ORDERED: ACETAMINOPHEN 325 MG TABLET (FP) PO PRN (15:21)
[2019-04-11] MEDS ORDERED: BISMUTH SUBSALICYLATE 262 MG/15 ML BTL PO PRN (15:21)
[2019-04-11] MEDS ORDERED: ALBUTEROL SO4 8 GM HFA INHALER IH PRN (15:25)
[2019-04-11] MEDS ORDERED: METHADONE HCL 10 MG TABLET (FOR DETOX USE ONLY) PO ONE ×2 (15:28→23:00)
[2019-04-11] MEDS: NICOTINE 21 MG/24 HOURS TOPICAL PATCH TD SCH (15:49)
[2019-04-11] MEDS: cloNIDine HCL 0.1 MG TABLET PO PRN (15:49)
[2019-04-11] MEDS: hydrOXYzine PAMOATE 25 MG CAPSULE (FP) PO PRN ×2 (15:51→22:39)
[2019-04-11] MEDS: METHOCARBAMOL 500 MG TABLET PO PRN (15:52)
[2019-04-11] MEDS: THIAMINE HCL 100 MG TABLET (FP) PO SCH (22:36)
[2019-04-11] MEDS: QUEtiapine FUMARATE 100 MG TABLET (FP) PO SCH (22:36)
[2019-04-11] MEDS: ACETAMINOPHEN 325 MG TABLET (FP) PO PRN (22:41)
--- NOTE | 2019-04-12 09:30 | PN ---
[facility] COWS - Scale Resting Pulse: 0= [place] 80 or Below Sweatin= Chills/Flushing Restless Observation: 1= Difficult to Sit Still Pupil Size: 1= Pupils >than Normal Bone or Joint Aches: 2= Severe Diffuse Aches Runny Nose/ Eye Tearin= Runny Nose/Eyes GI Upset > 30mins: 2= Nausea/Diarrhea Tremor Observation of Outstretched Hands: 2= Slight Tremor Visible Yawning Observation: 1= 1-2x During Session Anxiety or Irritability: 2=Irritable/Anxious Goose Flesh Skin: 0=Smooth Skin COWS Score: 14 S Progress Note (SOAP) Subjective: alert,irritable,anxious,interrupted sleep,tremor,pain in the body and back Objective: 04/12/19 09:29 Vital Signs Temperature 97.6 F 04/12/19 09:22 Pulse Rate 72 04/12/19 09:22 Respiratory Rate 18 04/12/19 09:22 Blood Pressure 138/86 04/12/19 09:22 O2 Sat by Pulse Oximetry (%) 04/12/19 09:29 labs pending Assessment: 04/12/19 09:30 withdrawal symptom Plan: continue detox
[2019-04-12] MEDS ORDERED: METHADONE HCL 10 MG TABLET (FOR DETOX USE ONLY) PO ONE (10:00)
[2019-04-12] MEDS: QUEtiapine FUMARATE 50 MG TABLET PO SCH (10:27)
[2019-04-12] MEDS: PANTOPRAZOLE 20 MG TABLET (FP) PO SCH (10:27)
[2019-04-12] MEDS: PRENATAL VITAMINS W/ FOLIC ACID TABLET (FP) PO SCH (10:27)
[2019-04-12] MEDS: LIDOCAINE 5% TOPICAL PATCH TP SCH (10:28)
[2019-04-12] MEDS: NICOTINE 21 MG/24 HOURS TOPICAL PATCH TD SCH (10:28)
[2019-04-12] MEDS: diazePAM 5 MG TABLET PO PRN ×2 (10:30→22:10)
[2019-04-12] MEDS: TOLNAFTATE 1% CREAM 15 GM TUBE TP SCH ×2 (10:30→22:07)
[2019-04-12] MEDS: IBUPROFEN 600 MG TABLET (FP) PO PRN (10:33)
[2019-04-12 12:31] LABS: ALBUMIN 3.3 g/dl (3.4-5.0); BILIRUBIN,TOTAL 0.3 mg/dL (0.2-1); CALCIUM 8.8 mg/dL (8.5-10.1); CREATININE 0.8 mg/dL (0.55-1.3); POTASSIUM 4.2 mmol/L (3.5-5.1); TOT PROT 6.7 g/dl (6.4-8.2)
[2019-04-12 12:32] LABS: HEMATOCRIT 40.7 % (32.4-45.2); HEMOGLOBIN 13.4 GM/dL (10.7-15.3); MCHC 32.9 g/dl (32.0-36.0); MEAN PLT VOLUME 9.2 fl (7.5-11.1); PLATELET COUNT 347 K/MM3 (134-434); RBC 4.62 M/mm3 (3.60-5.2); RDW 14.3 % (11.6-15.6); WHITE BLOOD COUNT 8.1 K/mm3 (4.0-10.0)
--- NOTE | 2019-04-12 14:39 | CONSULT ---
[facility] Psychiatric Consult - Data Date of interview: 04/12/19 Admission source: [facility] Identifying data: Return to [facility] for this 48 y/o female self- referred for detoxification (heroin, benzodiazepine, cocaine, cannabis). Interviewed on . Patient is single, a mother of six (two sons and four daughters), undomiciled, unemployed and deprived of any source of income. Substance Abuse History: Confirmed by patient in this interview : Smoking history: Current every day smoker. Have you smoked in the past 12 months: Yes. Aproximately how many cigarettes per day: 20. Cigars Per Day: 0. Hx Chewing Tobacco Use: No. Initiated information on smoking cessation: Yes. 'Breaking Loose' booklet given: 04/11/19. - Substance & Tx. History. Hx Alcohol Use: No. Hx Substance Use: Yes. Substance Use Type: Cocaine, Heroin, Marijuana. Hx Substance Use Treatment: Yes ([facility] 03/07/19 to 03/10/19). - Substances abused. Heroin. Substance route: Inhalation. Frequency: Daily. Amount used: 9 bags. Age of first use: 30. Date of last use: 04/10/19. Cocaine. Substance route: Inhalation. Frequency: Daily. Amount used: 7 bags. Age of first use: 30. Date of last use: 04/10/19. Alcohol. Substance route: Oral. Frequency: 1-3 times last 30 days. Amount used: 2 beers. Age of first use: 47. Date of last use: 03/05/19. Marijuana/Hashish. Substance route: Smoking. Frequency: Daily. Amount used: 5$. Age of first use: 13. Date of last use: 04/10/19. Alprazolam (Xanax). Substance route: Oral. Frequency: 1-3 times last 30 days. Amount used: 2mgs. Age of first use: 48. Date of last use: 03/06/19. Other. Other (specify): klonopin. Substance route: Oral. Frequency: Daily. Amount used: 1mg. Age of first use: 48. Date of last use: 04/04/19 Medical History: Anemia, bronchial asthma, GERD, chronic lumbar pain, sciatica, hypertension, arthritis, antecedent of cholecystectomy, treatment for cervical cancer (conization) and a history of culposcopy. Psychiatric History: Patient denies history of psychiatric hospitalizations. Ms Tolbert endorses MDD and Bipolar Disorder. No OPD care. Patient is prescribed seroquel 50 mg/am + 100 mg/hs by a primary care physician. Denies history of suicide attempts. Physical/Sexual Abuse/Trauma History: Not discussed : patient declines. Additional Comment: Urine drug screen results: THC-Marijuana, CLINTON-Cocaine, FEN- Fentanyl, MOP-Opiates, OXY-Oxycodone, BZO-Benzodiazepines, BUP-Suboxone. Noted. Mental Status Exam - Mental Status Exam Alert and Oriented to: Time, Place, Person Cognitive Function: Grossly Intact Patient Appearance: Unkempt, Disheveled Mood: Nervous, Withdrawn, Irritable Affect: Mood Congruent, Constricted Patient Behavior: Fatigued, Cooperative Speech Pattern: Clear, Appropriate Voice Loudness: Normal Thought Process: Goal Oriented Thought Disorder: Not Present Hallucinations: Denies Suicidal Ideation: Denies Homicidal Ideation: Denies Insight/Judgement: Poor Sleep: Poorly, Difficulty falling asleep Appetite: Good Gait/Station: Normal Psychiatric Findings - Problem List ([place] 1, 2,3) (1) Opioid dependence with withdrawal Current Visit: Yes Status: Acute (2) Sedative hypnotic or anxiolytic dependence Current Visit: Yes Status: Chronic (3) Cocaine dependence Current Visit: Yes Status: Chronic (4) Cannabis dependence Current Visit: Yes Status: Chronic (5) Insomnia Current Visit: Yes Status: Chronic (6) Substance induced mood disorder Current Visit: Yes Status: Chronic (7) History of bipolar disorder Current Visit: Yes Status: Chronic (8) Non-compliance Current Visit: Yes Status: Chronic - Initial Treatment Plan Initial Treatment Plan: Psychoeducation. Sleep hygiene. Relapse prevention (MAT ) principles are revisited with patient. Seroquel 50 mg po am + 100 mg po hs ( patient's request) : ordered. Side effects/benefits discussed. Patient gave verbal consent to MD. Humphrey.
[2019-04-12] MEDS: QUEtiapine FUMARATE 100 MG TABLET (FP) PO SCH (22:07)
[2019-04-12] MEDS: THIAMINE HCL 100 MG TABLET (FP) PO SCH (22:07)
[2019-04-12] MEDS: METHOCARBAMOL 500 MG TABLET PO PRN (22:10)
[2019-04-12] MEDS: LIDOCAINE PATCH REMOVAL MC SCH (23:36)
[2019-04-13] MEDS ORDERED: METHADONE HCL 10 MG TABLET (FOR DETOX USE ONLY) PO ONE (10:00)
[2019-04-13] MEDS: PANTOPRAZOLE 20 MG TABLET (FP) PO SCH (10:31)
[2019-04-13] MEDS: QUEtiapine FUMARATE 50 MG TABLET PO SCH (10:32)
[2019-04-13] MEDS: PRENATAL VITAMINS W/ FOLIC ACID TABLET (FP) PO SCH (10:32)
[2019-04-13] MEDS: IBUPROFEN 600 MG TABLET (FP) PO PRN ×2 (10:33→18:53)
[2019-04-13] MEDS: diazePAM 5 MG TABLET PO PRN ×2 (10:34→18:53)
[2019-04-13] MEDS: LIDOCAINE 5% TOPICAL PATCH TP SCH (10:35)
[2019-04-13] MEDS: NICOTINE 21 MG/24 HOURS TOPICAL PATCH TD SCH (11:09)
[2019-04-13] MEDS: cloNIDine HCL 0.1 MG TABLET PO PRN ×2 (11:28→22:23)
[2019-04-13] MEDS: METHOCARBAMOL 500 MG TABLET PO PRN ×2 (11:30→18:53)
[2019-04-13] MEDS: TOLNAFTATE 1% CREAM 15 GM TUBE TP SCH ×2 (11:31→22:26)
--- NOTE | 2019-04-13 13:39 | PN ---
[facility] COWS - Scale Resting Pulse: 1= [place] 81-100 Sweatin= Chills/Flushing Restless Observation: 0= Sits Still Pupil Size: 0= Normal to Room Light Bone or Joint Aches: 4=Acute Joint/Muscle Pain Runny Nose/ Eye Tearin= None GI Upset > 30mins: 0= None Tremor Observation of Outstretched Hands: 1= Tremor [place], Not Seen [facility] Progress Note (SOAP) Subjective: Body Aches, Objective: PATIENT A & O X 3, OBSERVED AMBULATING ON UNIT UNASSISTED. IN NO ACUTE DISTRESS. 04/13/19 13:50 Vital Signs Temperature 98.8 F 04/13/19 13:13 Pulse Rate 89 04/13/19 13:13 Respiratory Rate 18 04/13/19 13:13 Blood Pressure 117/76 04/13/19 13:13 O2 Sat by Pulse Oximetry (%) Laboratory Tests 04/11/19 04/12/19 04/12/19 14:37 07:30 07:30 WBC 8.1 RBC 4.62 Hgb 13.4 Hct 40.7 MCV 88.0 MCH 29.0 MCHC 32.9 RDW 14.3 Plt Count 347 MPV 9.2 Sodium 142 Potassium 4.2 Chloride 106 Carbon Dioxide 29 Anion Gap 7 L BUN 18 Creatinine 0.8 Est GFR (CKD-EPI)AfAm 99.63 Est GFR (CKD-EPI)NonAf 85.96 Random Glucose 126 H Calcium 8.8 Total Bilirubin 0.3 AST 7 L ALT 13 Alkaline Phosphatase 107 Total Protein 6.7 Albumin 3.3 L POC Urine HCG, Qual Negative RPR Titer 04/12/19 07:30 WBC RBC Hgb Hct MCV MCH MCHC RDW Plt Count MPV Sodium Potassium Chloride Carbon Dioxide Anion Gap BUN Creatinine Est GFR (CKD-EPI)AfAm Est GFR (CKD-EPI)NonAf Random Glucose Calcium Total Bilirubin AST ALT Alkaline Phosphatase Total Protein Albumin POC Urine HCG, Qual RPR Titer Nonreactive LABS NOTED. Assessment: 04/13/19 13:52 WITHDRAWAL SYMPTOMS. Plan: CONTINUE DETOX. INCREASE DAILY PO FLUID INTAKE. PRN ROBAXIN FOR BODY ACHES / MUSCLE SPASMS. RANDALL-PEREZ FOR BILATERAL KNEE PAIN.
[2019-04-13] MEDS: QUEtiapine FUMARATE 100 MG TABLET (FP) PO SCH (22:23)
[2019-04-13] MEDS: THIAMINE HCL 100 MG TABLET (FP) PO SCH (22:23)
[2019-04-13] MEDS: AMMONIUM LACTATE 12% LOTION 225 GM BOTTLE TP SCH (22:24)
[2019-04-13] MEDS: ACETAMINOPHEN 325 MG TABLET (FP) PO PRN (22:25)
[2019-04-13] MEDS: LIDOCAINE PATCH REMOVAL MC SCH (22:25)
[2019-04-14] MEDS ORDERED: METHADONE HCL 5 MG TABLET (FOR DETOX USE ONLY) ONE (09:40)
[2019-04-14] MEDS ORDERED: METHADONE HCL 10 MG TABLET (FOR DETOX USE ONLY) ONE (09:41)
--- NOTE | 2019-04-14 09:53 | PN ---
S Progress Note (SOAP) Subjective: alert,irritable,anxious,interrupted sleep,feel weak Objective: 04/14/19 09:52 Vital Signs Temperature 98.1 F 04/14/19 06:48 Pulse Rate 74 04/14/19 06:48 Respiratory Rate 16 04/14/19 06:48 Blood Pressure 125/58 L 04/14/19 06:48 O2 Sat by Pulse Oximetry (%) Assessment: 04/14/19 09:52 withdrawal symptom Plan: continue detox,discharge in am
[2019-04-14] MEDS ORDERED: METHADONE HCL 10 MG TABLET (FOR DETOX USE ONLY) PO ONE (10:00)
[2019-04-14] MEDS ORDERED: METHADONE (DETOX) 10 MG, METHADONE (DETOX) 5 MG PO ONE (10:00)
[2019-04-14] MEDS: QUEtiapine FUMARATE 50 MG TABLET PO SCH (10:37)
[2019-04-14] MEDS: PRENATAL VITAMINS W/ FOLIC ACID TABLET (FP) PO SCH (10:37)
[2019-04-14] MEDS: PANTOPRAZOLE 20 MG TABLET (FP) PO SCH (10:37)
[2019-04-14] MEDS: METHYL SALICYLATE/MENTHOL OINT 30 GM TUBE TP SCH ×2 (10:40→22:14)
[2019-04-14] MEDS: AMMONIUM LACTATE 12% LOTION 225 GM BOTTLE TP SCH ×2 (10:40→22:14)
[2019-04-14] MEDS: TOLNAFTATE 1% CREAM 15 GM TUBE TP SCH ×2 (10:41→22:13)
[2019-04-14] MEDS: NICOTINE 21 MG/24 HOURS TOPICAL PATCH TD SCH (10:41)
[2019-04-14] MEDS: LIDOCAINE 5% TOPICAL PATCH TP SCH (10:41)
[2019-04-14] MEDS: IBUPROFEN 600 MG TABLET (FP) PO PRN ×2 (10:47→20:20)
[2019-04-14] MEDS: diazePAM 5 MG TABLET PO PRN (10:49)
[2019-04-14] MEDS ORDERED: ALBUTEROL SO4 2.5/IPRATROPIUM 0.5 INH SOL 3 ML VIAL.NEB. NEB ONE (21:44)
--- NOTE | 2019-04-14 21:47 | PN ---
[facility] Progress Note Note: Patient complained of SOB Vital Signs Temperature 97.7 F 04/14/19 21:39 Pulse Rate 88 04/14/19 21:39 Respiratory Rate 19 04/14/19 21:39 Blood Pressure 137/65 04/14/19 21:39 O2 Sat by Pulse Oximetry (%) Action: Duoneb nebulizer treatment ordered
[2019-04-14] MEDS: THIAMINE HCL 100 MG TABLET (FP) PO SCH (22:13)
[2019-04-14] MEDS: QUEtiapine FUMARATE 100 MG TABLET (FP) PO SCH (22:13)
[2019-04-14] MEDS: LIDOCAINE PATCH REMOVAL MC SCH (22:14)
[2019-04-15] MEDS ORDERED: METHADONE HCL 5 MG TABLET (FOR DETOX USE ONLY) PO ONE (06:00)
[2019-04-15] MEDS: IBUPROFEN 600 MG TABLET (FP) PO PRN (07:53)
[2019-04-15 09:06] VITALS: BP 146/51; PULSE 85; TEMP 97.5
--- NOTE | 2019-04-15 09:20 | DS ---
[facility] Detox Discharge Summary Admission Date: 04/11/19 Discharge Date: 04/15/19 - History Present History: Alcohol Dependence, Cannabis Dependence, Opioid Dependence, Sedative Dependence - Physical Exam Results Vital Signs: Vital Signs Temperature 97.5 F L 04/15/19 09:05 Pulse Rate 85 04/15/19 09:05 Respiratory Rate 18 04/15/19 09:05 Blood Pressure 146/51 L 04/15/19 09:05 O2 Sat by Pulse Oximetry (%) - Treatment Hospital Course: Detox Protocol Followed, Detoxed Safely, Responded well, Discharged Condition Good, Rehab Referral Accepted - Medication Discharge Medications: Ambulatory Orders Omeprazole 40 mg PO DAILY 02/27/17 Albuterol Sulfate Inhaler - [Ventolin HFA Inhaler -] 2 inh PO Q4H PRN #1 inhaler 10/10/18 cloNIDine HCL [Catapres -] 0.1 mg PO BID #14 tablet 10/10/18 Quetiapine Fumarate [Seroquel -] 50 mg PO DAILY #30 tablet 11/08/18 Quetiapine Fumarate [Seroquel -] 100 mg PO HS 03/07/19 - Diagnosis (1) Alcohol dependence with uncomplicated withdrawal Current Visit: Yes Status: Chronic (2) Opioid dependence with withdrawal Current Visit: Yes Status: Chronic (3) Cannabis dependence Current Visit: Yes Status: Chronic (4) Cocaine dependence Current Visit: Yes Status: Chronic Qualifiers: Substance use status: uncomplicated Qualified Code(s): F14.20 - Cocaine dependence, uncomplicated (5) History of bipolar disorder Current Visit: Yes Status: Chronic (6) Insomnia Current Visit: Yes Status: Chronic (7) Sedative hypnotic or anxiolytic dependence Current Visit: Yes Status: Chronic (8) Substance induced mood disorder Current Visit: Yes Status: Chronic (9) Carcinoma uterine cervix in situ Current Visit: No Status: Acute Qualifiers: Carcinoma in situ of uterine cervix location: unspecified part of cervix Qualified Code(s): D06.9 - Carcinoma in situ of cervix, unspecified (10) Depression Current Visit: No Status: Acute (11) History of laparoscopic cholecystectomy Current Visit: No Status: Acute (12) Opioid dependence with withdrawal Current Visit: Yes Status: Chronic (13) Asthma Current Visit: Yes Status: Chronic Qualifiers: Asthma severity: mild Asthma persistence: intermittent Asthma complication type: uncomplicated Qualified Code(s): J45.20 - Mild intermittent asthma, uncomplicated (14) Bipolar disorder Current Visit: No Status: Chronic (15) Cervical cancer Current Visit: No Status: Chronic (16) Cocaine dependence Current Visit: Yes Status: Chronic Qualifiers: Substance use status: uncomplicated Qualified Code(s): F14.20 - Cocaine dependence, uncomplicated (17) GERD (gastroesophageal reflux disease) Current Visit: Yes Status: Chronic Qualifiers: Esophagitis presence: without esophagitis Qualified Code(s): K21.9 - Gastro -esophageal reflux disease without esophagitis (18) History of anemia Current Visit: No Status: Chronic (19) Insomnia Current Visit: No Status: Chronic (20) Low back pain Current Visit: No Status: Chronic Qualifiers: (21) Opioid dependence with withdrawal Current Visit: Yes Status: Chronic (22) Substance or medication-induced sleep disorder, insomnia type Current Visit: Yes Status: Chronic (23) History of OCD (obsessive compulsive disorder) Current Visit: Yes Status: Suspected (24) Substance induced mood disorder Current Visit: No Status: Suspected - AMA Did Patient Leave Against Medical Advice: No (pt referred to [facility] inpatient rehab)
[2019-04-15] MEDS: PANTOPRAZOLE 20 MG TABLET (FP) PO SCH (09:30)
[2019-04-15] MEDS: QUEtiapine FUMARATE 50 MG TABLET PO SCH (09:30)
[2019-04-15] MEDS: PRENATAL VITAMINS W/ FOLIC ACID TABLET (FP) PO SCH (09:30)
[2019-04-15] MEDS: LIDOCAINE 5% TOPICAL PATCH TP SCH (09:51)
[2019-04-15] MEDS: NICOTINE 21 MG/24 HOURS TOPICAL PATCH TD SCH (09:52)
[2019-04-15] MEDS ORDERED: METHADONE HCL 10 MG TABLET (FOR DETOX USE ONLY) PO ONE (10:00)
[2019-04-15] MEDS: TOLNAFTATE 1% CREAM 15 GM TUBE TP SCH (11:20)
[2019-04-15] MEDS: METHYL SALICYLATE/MENTHOL OINT 30 GM TUBE TP SCH (11:20)
[2019-04-15] MEDS: AMMONIUM LACTATE 12% LOTION 225 GM BOTTLE TP SCH (11:20)
[2019-04-15 17:38] LABS: EPI CELLS 21.5 /HPF (0-5/HPF); URINE APPEARANCE CLOUDY; URINE BACTERIA 30.8 /hpf (NEGATIVE); URINE BILIRUBIN NEGATIVE (NEGATIVE); URINE CASTS 26 /lpf (0-8); URINE COLOR YELLOW; URINE GLUCOSE (UA) NEGATIVE (NEGATIVE); URINE KETONE NEGATIVE (NEGATIVE); URINE LEUK ESTERASE 3+ (NEGATIVE); URINE NITRITE NEGATIVE (NEGATIVE); URINE PROTEIN NEGATIVE (NEGATIVE); URINE RBC 4 /hpf (0-4); URINE UROBILINOGEN 0.2 mg/dL (0.2-1.0); URINE WBC 49 /hpf (0-5)
[2019-04-16] MEDS ORDERED: METHADONE HCL 5 MG TABLET (FOR DETOX USE ONLY) PO ONE (06:00)
== END 2019-04-15 11:18 | disposition home or self-care (01) | DRG 773 ==
LOC: YASAS 13:16 → Y6N 15:15
PROVIDERS: ADMIT Surgery; ATTEND Surgery
PROC: HZ2ZZZZ Detoxification Services for Substance Abuse Treatment (ICD-10-PCS; principal; 2019-04-11)
DX: F11.23 Opioid dependence with withdrawal (principal); F10.230 Alcohol dependence with withdrawal, uncomplicated; F13.20 Sedative, hypnotic or anxiolytic dependence, uncomplicated; F14.20 Cocaine dependence, uncomplicated; F12.20 Cannabis dependence, uncomplicated; F17.210 Nicotine dependence, cigarettes, uncomplicated; F19.24 Other psychoactive substance dependence with psychoactive substance-induced mood disorder; F19.282 Other psychoactive substance dependence with psychoactive substance-induced sleep disorder; F31.9 Bipolar disorder, unspecified; I10 Essential (primary) hypertension; J45.20 Mild intermittent asthma, uncomplicated; G47.00 Insomnia, unspecified; C53.9 Malignant neoplasm of cervix uteri, unspecified; K21.9 Gastro-esophageal reflux disease without esophagitis; M54.5 Low back pain; G89.29 Other chronic pain; Z88.8 Allergy status to other drugs, medicaments and biological substances; Z91.19 Patient's noncompliance with other medical treatment and regimen
CPT/HCPCS: 36415; 80053; 81003; 81025; 85027; 86593; 94640; J0735

== ENCOUNTER 2019-06-14 09:41 | Inpatient (IN) | payer OTHER ==
[2019-06-14 10:08] VITALS: BMI 29.5
--- NOTE | 2019-06-14 11:04 | HP ---
COWS - Scale Resting Pulse: 0= ID 80 or Below Sweatin= Chills/Flushing Restless Observation: 1= Difficult to Sit Still Pupil Size: 0= Normal to Room Light Bone or Joint Aches: 4=Acute Joint/Muscle Pain Runny Nose/ Eye Tearin= Nasal Congestion GI Upset > 30mins: 2= Nausea/Diarrhea Tremor Observation: 0= None Yawning Observation: 0= None Anxiety or Irritability: 2=Irritable/Anxious Goose Flesh Skin: 0=Smooth Skin COWS Score: 11 CIWA Score - Admission Criteria OAS Guidelines: Admission for Medically Managed Detox: Requires at least one of the followin. CIWA greater than 12 2. Seizures within the past 24 hours 3. Delirium tremens within the past 24 hours 4. Hallucinations within the past 24 hours 5. Acute intervention needed for co occurring medical disorder 6. Acute intervention needed for co occurring psychiatric disorder 7. Severe withdrawal that cannot be handled at a lower level of care (continued vomiting, continued diarrhea, abnormal vital signs) requiring intravenous medication and/or fluids 8. Admission ROS [facility] Allergies/Adverse Reactions: Allergies Allergy/AdvReac Type Severity Reaction Status Date / Time chlordiazepoxide Allergy Verified 04/11/19 14:07 [From Librium] librium Allergy Severe Difficulty Uncoded 06/14/19 09:56 Breathing History of Present Illness: This report was requested by: Joy Gifford | Reference #: [id number] Others' Prescriptions Patient Name: Leydi Tolbert Date: 1970 Address: [address] [place] [address] Sex: Female Rx Written Rx Dispensed Drug Quantity Days Supply Prescriber Name 05/13/2019 05/13/2019 suboxone 8 mg-2 mg sl film 28 14 Molly Michelle MD Patient Name: Leydi Tolbert Date: 1970 Address: [address] [place] [address] Sex: Female Rx Written Rx Dispensed Drug Quantity Days Supply Prescriber Name 02/07/2019 02/07/2019 buprenorphine-naloxone 8-2 mg sl film 14 7 Madhavi Ortiz [employer] pt here requesting detox from heroin use , erports 7 bags/day denies ivdu , was in Suboxone program [facility] , left and relapsed , latest use yesterday , current symptms as above . cocaine : crack daily cannabis _ 2 x/ month tobacco :2 cigs/day denie other illicits latest Suboxone use 2 days ago illicit use . pmhx : chi knee OA , l-spine chronic pain ,sciatica, Asthma meds - seroquel illicit use " to help me calm down " Exam Limitations: Clinical Condition - Ebola screening Have you traveled outside of the country in the last 21 days: No Have you had contact with anyone from an Ebola affected area: No Do you have a fever: No - Review of Systems Constitutional: See HPI, Loss of Appetite EENT: reports: See HPI Respiratory: reports: No Symptoms reported Cardiac: reports: No Symptoms Reported GI: reports: See HPI : reports: No Symptoms Reported Musculoskeletal: reports: See HPI Integumentary: reports: No Symptoms Reported Neuro: reports: No Symptoms reported Endocrine: reports: No Symptoms Reported Psychiatric: reports: Orientated x3 Patient History - Patient Medical History Hx Anemia: Yes (no med) Hx Asthma: Yes (on albuterol inhaler) Hx Chronic Obstructive Pulmonary Disease (COPD): No Hx Cancer: Yes (cervical ca follow up with own reserve officer) Hx Cardiac Disorders: No Hx Congestive Heart Failure: No Hx Hypertension: Yes (non compliance) Hx Hypercholesterolemia: No Hx Pacemaker: No HX Cerebrovascular Accident: No Hx Seizures: No Hx Dementia: No Hx Diabetes: No Hx Gastrointestinal Disorders: Yes (GERD) Hx Liver Disease: No Hx Genitourinary Disorders: No Hx Sexually Transmitted Disorders: No Hx Renal Disease (ESRD): No Hx Thyroid Disease: No Hx Human Immunodeficiency Virus (HIV): No (NEGATIVE HX last 02/15) Hx Hepatitis C: No Hx Depression: Yes (on med) Hx Suicide Attempt: No Hx Bipolar Disorder: No Hx Schizophrenia: No - Patient Surgical History Past Surgical History: Yes Hx Neurologic Surgery: No Hx Cataract Extraction: No Hx Cardiac Surgery: No Hx Lung Surgery: No Hx Breast Surgery: No Hx Breast Biopsy: No Hx Abdominal Surgery: No Hx Appendectomy: No Hx Cholecystectomy: Yes (lap in 2006) Hx Genitourinary Surgery: Yes (carcinoma in situ s/p conization in 2013) Hx Section: No Hx Orthopedic Surgery: No Other Surgical History: Pt had a culposcopy. Anesthesia Reaction: No - PPD History Date: 10/08/18 Results: 0mm - Reproductive History Last Menstrual Period: 04/01/19 - Smoking Cessation Smoking history: Current every day smoker Have you smoked in the past 12 months: Yes Aproximately how many cigarettes per day: 20 Cigars Per Day: 0 Hx Chewing Tobacco Use: No Initiated information on smoking cessation: No - Substances abused Heroin Substance route: Inhalation Frequency: Daily Amount used: 9 bags Age of first use: 30 Date of last use: 06/14/19 Cocaine Substance route: Smoking Frequency: Daily Amount used: 25 bags Age of first use: 30 Date of last use: 06/13/19 Alcohol Substance route: Oral Frequency: 1-3 times last 30 days Amount used: 2 beers Age of first use: 47 Date of last use: 03/05/19 Marijuana/Hashish Substance route: Smoking Frequency: 1-2 times per week Amount used: 5$ Age of first use: 13 Date of last use: 06/12/19 Alprazolam (Xanax) Substance route: Oral Frequency: 1-3 times last 30 days Amount used: 2mgs Age of first use: 48 Date of last use: 03/06/19 Other Other (specify): klonopin Substance route: Oral Frequency: Daily Amount used: 1mg Age of first use: 48 Date of last use: 04/04/19 Family Disease History - Family Disease History Family Disease History: Heart Disease: Grandparent, Other: Father ( - alcohol), Mother (arthritis) Admission Physical Exam S - Vital Signs Vital Signs: Vital Signs - 24 hr 06/14/19 06/14/19 09:45 10:29 Temperature 96.9 F L 96.9 F L Pulse Rate 67 67 Respiratory 18 18 Rate Blood Pressure 131/76 131/76 - Physical General Appearance: Yes: Mild Distress HEENTM: Yes: Normocephalic, Normal Voice, Other (poor dentition, many missing teeth) Respiratory: Yes: Lungs Clear, Normal Breath Sounds, No Respiratory Distress, No Accessory Muscle Use Neck: Yes: No masses,lesions,Nodules, Trachea in good position Cardiology: Yes: Regular Rhythm, Regular Rate, S1, S2 Abdominal: Yes: Non Tender, Soft Extremities: Yes: Normal Range of Motion, Non-Tender Neurological: Yes: Fully Oriented, Alert, Motor Strength 5/5, Depressed Affect Integumentary: Yes: Warm - Diagnostic (1) Cocaine dependence Current Visit: Yes Status: Chronic Qualifiers: (2) Opioid dependence with withdrawal Current Visit: Yes Status: Chronic Breathalyzer - Breathalyzer Breathalyzer: 0 POC Urine test - Test device test lot number: [id number] Expiration date: 07/30/20 - Control test control: Yes Urine Drug Screen - Test Device Lot number: [id number] Expiration date: 03/29/21 - Control Is test valid?: Yes - Results Drug screen NEGATIVE: No Urine drug screen results: THC-Marijuana, CLINTON-Cocaine, FEN-Fentanyl, MOP-Opiates , BZO-Benzodiazepines, BUP-Suboxone Inpatient Rehab Admission - Rehab Decision to Admit Inpatient rehab admission?: No
[2019-06-14] MEDS ORDERED: ALBUTEROL SO4 8 GM HFA INHALER IH PRN (11:16)
[2019-06-14] MEDS ORDERED: MAG HYDROX/AL HYDROX/SIMETH 30 ML UNIT-DOSE CUP PO PRN (11:18)
[2019-06-14] MEDS ORDERED: MAGNESIUM HYDROX 2400MG/30ML ORAL SUSPENSION 30 ML CUP PO PRN (11:18)
[2019-06-14] MEDS ORDERED: MAGNESIUM CITRATE 300 ML BOTTLE PO PRN (11:18)
[2019-06-14] MEDS ORDERED: IBUPROFEN 400 MG TABLET (FP) PO PRN (11:18)
[2019-06-14] MEDS ORDERED: MENTHOL/PHENOL 1 EACH UD MM PRN (11:18)
[2019-06-14] MEDS ORDERED: BISMUTH SUBSALICYLATE 524 MG/30 ML UD PO PRN (11:18)
[2019-06-14] MEDS ORDERED: NICOTINE POLACRILEX 2 MG GUM BUC PRN (11:18)
[2019-06-14] MEDS ORDERED: MELATONIN 5 MG TABLETS PO PRN (11:18)
[2019-06-14] MEDS ORDERED: ACETAMINOPHEN 325 MG TABLET (FP) PO PRN ×2 (11:18)
[2019-06-14] MEDS ORDERED: cloNIDine HCL 0.1 MG TABLET PO PRN (11:19)
[2019-06-14] MEDS ORDERED: METHADONE HCL 10 MG TABLET (FOR DETOX USE ONLY) PO ONE (12:10)
[2019-06-14] MEDS: THIAMINE HCL 100 MG TABLET (FP) PO SCH (23:00)
--- NOTE | 2019-06-15 09:23 | CONSULT ---
[facility] Psychiatric Consult - Data Date of interview: 06/15/19 Admission source: Self-referred Identifying data: Ms Tolbert is a 48 years old single female, mother of 6 children, unemployed with no source of income, homeless seeking detox treatment for alcohol, opioid, cocaine, benzodiazepine and cannabis Substance Abuse History: Reports history of alcohol, heroin, cocaine, xanax, klonopi and marijuana use. Refer to addiction counselor's summary for further information Medical History: Significant for bronchial asthma, GERD, chronic lumbar pain, sciatica, hypertension, arthritis, history of anemia, cholecystectomy, conization for cervical cancer and culposcopy. Smokes cigarettes1 ppd Psychiatric History: Patient is irritable and superficially cooperative. She is known to this facility from previous admissions and she was recently seen by Dr German on 04/12/19 while admitted to detox. Reportedly she was diagnosed with Bipolar Disorder. Denies previous psychiatric hospitalization. She is not currently involved in OPD care. When seen by Dr German recently, she was prescribed Seroquel 50 mg/day & 100 mg/hs. Told headline writer that on discharge from this facility on 04/15/19, she was referred to [facility] in [facility] for rehab. She said that she was there for 28 days and was continued on her medications. She reports that soon after discharge from [facility], she relapsed and has been off medication since. Denies history of suicide attempt. At present, denies experiencing psychotic, manic symptoms, S/H ideations. However, reports feeling depressed, irritable and sleeping poorly Physical/Sexual Abuse/Trauma History: Reluctant to provide information on this topic Mental Status Exam - Mental Status Exam Alert and Oriented to: Time, Place, Person Cognitive Function: Fair Patient Appearance: Well Groomed Mood: Irritable Affect: Appropriate Patient Behavior: Cooperative (superficially ) Speech Pattern: Clear Voice Loudness: Normal Thought Process: Intact, Goal Oriented Hallucinations: Denies Suicidal Ideation: Denies Homicidal Ideation: Denies Insight/Judgement: Poor Sleep: Poorly Appetite: Good Muscle strength/Tone: Normal Gait/Station: Normal Psychiatric Findings - Problem List ([place] 1, 2,3) (1) Mood disorder Current Visit: Yes Status: Chronic (2) Bipolar disorder Current Visit: Yes Status: Ruled-out (3) Substance induced mood disorder Current Visit: No Status: Acute (4) Substance-induced sleep disorder Current Visit: Yes Status: Acute (5) Alcohol dependence with uncomplicated withdrawal Current Visit: No Status: Acute (6) Opioid dependence with withdrawal Current Visit: Yes Status: Acute (7) Cocaine dependence Current Visit: Yes Status: Chronic Qualifiers: (8) Sedative hypnotic or anxiolytic dependence Current Visit: No Status: Acute (9) Cannabis dependence Current Visit: No Status: Acute (10) Nicotine dependence Current Visit: Yes Status: Chronic (11) Asthma Current Visit: No Status: Chronic Qualifiers: Asthma severity: mild Asthma persistence: intermittent Asthma complication type: uncomplicated Qualified Code(s): J45.20 - Mild intermittent asthma, uncomplicated (12) GERD (gastroesophageal reflux disease) Current Visit: No Status: Chronic Qualifiers: Esophagitis presence: without esophagitis Qualified Code(s): K21.9 - Gastro -esophageal reflux disease without esophagitis (13) History of anemia Current Visit: No Status: Resolved (14) Low back pain Current Visit: No Status: Chronic Qualifiers: (15) Osteoarthritis of both knees Current Visit: Yes Status: Chronic (16) Carcinoma uterine cervix in situ Current Visit: No Status: Resolved Qualifiers: Carcinoma in situ of uterine cervix location: unspecified part of cervix Qualified Code(s): D06.9 - Carcinoma in situ of cervix, unspecified (17) History of laparoscopic cholecystectomy Current Visit: No Status: Resolved - Initial Treatment Plan Initial Treatment Plan: 1) Resume Seroquel 50 mg daily & 100 mg HS. 2) Continue inpatient detoxification
[2019-06-15 09:38] LABS: HEMATOCRIT 38.2 % (32.4-45.2); HEMOGLOBIN 12.8 GM/dL (10.7-15.3); MCH 28.8 pg (25.7-33.7); MCHC 33.4 g/dl (32.0-36.0); MEAN CELL VOLUME 86.2 fl (80-96); PLATELET COUNT 350 K/MM3 (134-434); RBC 4.43 M/mm3 (3.60-5.2); RDW 14.3 % (11.6-15.6); WHITE BLOOD COUNT 6.2 K/mm3 (4.0-10.0)
[2019-06-15] MEDS: PRENATAL VITAMINS W/ FOLIC ACID TABLET (FP) PO SCH (09:44)
[2019-06-15] MEDS: METHADONE HCL 5 MG TABLET (FOR DETOX USE ONLY) PO ONE ×2 (09:44→10:40)
[2019-06-15] MEDS ORDERED: LIDOCAINE 5% TOPICAL PATCH TP SCH (10:00)
[2019-06-15 10:29] LABS: ALBUMIN 3.6 g/dl (3.4-5.0); BILIRUBIN,TOTAL 0.4 mg/dL (0.2-1); BLOOD UREA NITROGEN 16.6 mg/dL (7-18); CREATININE 0.8 mg/dL (0.55-1.3); POTASSIUM 4.2 mmol/L (3.5-5.1)
[2019-06-15] MEDS: IBUPROFEN 600 MG TABLET (FP) PO PRN ×2 (10:40→17:19)
[2019-06-15] MEDS: QUEtiapine FUMARATE 50 MG TABLET PO SCH (10:40)
[2019-06-15] MEDS: CYCLOBENZAPRINE HCL 10 MG TABLET (FP) PO PRN ×2 (10:41→17:19)
[2019-06-15] MEDS: hydrOXYzine HCL 25 MG TABLET (FP) PO PRN (10:49)
--- NOTE | 2019-06-15 12:21 | PN ---
B[facility] COWS - Scale Resting Pulse: 1= [place] 81-100 Sweatin= Chills/Flushing Restless Observation: 1= Difficult to Sit Still Pupil Size: 0= Normal to Room Light Bone or Joint Aches: 2= Severe Diffuse Aches Runny Nose/ Eye Tearin= Nasal Congestion GI Upset > 30mins: 0= None Tremor Observation of Outstretched Hands: 2= Slight Tremor Visible Yawning Observation: 0= None Anxiety or Irritability: 2=Irritable/Anxious Goose Flesh Skin: 0=Smooth Skin COWS Score: 10 BHS Progress Note (SOAP) Subjective: low back pain knee pain sweats irritable agitation interrupted sleep Objective: 06/15/19 12:18 Vital Signs Temperature 98.2 F 06/15/19 07:39 Pulse Rate 68 06/15/19 07:39 Respiratory Rate 18 06/15/19 07:39 Blood Pressure 153/87 06/15/19 07:39 O2 Sat by Pulse Oximetry (%) Laboratory Tests 06/15/19 06/15/19 06/15/19 07:32 07:32 07:32 WBC 6.2 RBC 4.43 Hgb 12.8 Hct 38.2 MCV 86.2 MCH 28.8 MCHC 33.4 RDW 14.3 Plt Count 350 MPV 9.0 Sodium 141 Potassium 4.2 Chloride 106 Carbon Dioxide 29 Anion Gap 5 L BUN 16.6 Creatinine 0.8 Est GFR (CKD-EPI)AfAm 99.63 Est GFR (CKD-EPI)NonAf 85.96 Random Glucose 101 Calcium 9.0 Total Bilirubin 0.4 AST 9 L ALT 14 Alkaline Phosphatase 100 Total Protein 7.0 Albumin 3.6 HIV 1&2 Antibody Screen Negative HIV P24 Antigen Negative aaox3 ambulating no acute distress Assessment: 06/15/19 12:19 withdrawal sx Plan: continue detox increase fluids lidocaine patch to apply to back and knee ordered motrin 600mg prn
[2019-06-15] MEDS: QUEtiapine FUMARATE 100 MG TABLET (FP) PO SCH (22:48)
[2019-06-15] MEDS: THIAMINE HCL 100 MG TABLET (FP) PO SCH (22:48)
[2019-06-15] MEDS: LIDOCAINE PATCH REMOVAL MC SCH (23:12)
[2019-06-16] MEDS: IBUPROFEN 600 MG TABLET (FP) PO PRN (08:46)
[2019-06-16] MEDS ORDERED: METHADONE HCL 10 MG TABLET (FOR DETOX USE ONLY) PO ONE (10:00)
[2019-06-16] MEDS: QUEtiapine FUMARATE 50 MG TABLET PO SCH (10:34)
[2019-06-16] MEDS: LIDOCAINE 5% TOPICAL PATCH TP SCH (10:34)
[2019-06-16] MEDS: PRENATAL VITAMINS W/ FOLIC ACID TABLET (FP) PO SCH (10:34)
--- NOTE | 2019-06-16 11:21 | PN ---
[facility] COWS - Scale Resting Pulse: 0= [place] 80 or Below Sweatin=Flushed/Facial Moisture Restless Observation: 1= Difficult to Sit Still Pupil Size: 0= Normal to Room Light Bone or Joint Aches: 2= Severe Diffuse Aches Runny Nose/ Eye Tearin= Runny Nose/Eyes GI Upset > 30mins: 0= None Tremor Observation of Outstretched Hands: 1= Tremor Hungry Horse, Not Seen Yawning Observation: 0= None Anxiety or Irritability: 2=Irritable/Anxious Goose Flesh Skin: 0=Smooth Skin COWS Score: 10 BHS Progress Note (SOAP) Subjective: chronic back pain sweats shakes interrupted sleep irritable Objective: 06/16/19 11:19 Vital Signs Temperature 97.3 F L 06/16/19 09:48 Pulse Rate 68 06/16/19 09:48 Respiratory Rate 18 06/16/19 09:48 Blood Pressure 161/69 06/16/19 09:48 O2 Sat by Pulse Oximetry (%) Laboratory Tests 06/14/19 06/15/19 06/15/19 10:33 07:32 07:32 WBC 6.2 RBC 4.43 Hgb 12.8 Hct 38.2 MCV 86.2 MCH 28.8 MCHC 33.4 RDW 14.3 Plt Count 350 MPV 9.0 Sodium 141 Potassium 4.2 Chloride 106 Carbon Dioxide 29 Anion Gap 5 L BUN 16.6 Creatinine 0.8 Est GFR (CKD-EPI)AfAm 99.63 Est GFR (CKD-EPI)NonAf 85.96 Random Glucose 101 Calcium 9.0 Total Bilirubin 0.4 AST 9 L ALT 14 Alkaline Phosphatase 100 Total Protein 7.0 Albumin 3.6 POC Urine HCG, Qual Negative RPR Titer HIV 1&2 Antibody Screen HIV P24 Antigen 06/15/19 06/15/19 07:32 07:32 WBC RBC Hgb Hct MCV MCH MCHC RDW Plt Count MPV Sodium Potassium Chloride Carbon Dioxide Anion Gap BUN Creatinine Est GFR (CKD-EPI)AfAm Est GFR (CKD-EPI)NonAf Random Glucose Calcium Total Bilirubin AST ALT Alkaline Phosphatase Total Protein Albumin POC Urine HCG, Qual RPR Titer Nonreactive HIV 1&2 Antibody Screen Negative HIV P24 Antigen Negative labs noted aaox3 ambulating no acute distress Assessment: 06/16/19 11:20 withdrawal sx Plan: continue detox increase fluids roboxian 500mg ordered; d/c flexiril d/c in am
[2019-06-16] MEDS: METHOCARBAMOL 500 MG TABLET PO PRN (12:15)
[2019-06-16] MEDS ORDERED: QUEtiapine FUMARATE 50 MG TABLET ONE (22:11)
[2019-06-16] MEDS: hydrOXYzine HCL 25 MG TABLET (FP) PO PRN (23:03)
[2019-06-16] MEDS: QUEtiapine FUMARATE 100 MG TABLET (FP) PO SCH (23:03)
[2019-06-16] MEDS: THIAMINE HCL 100 MG TABLET (FP) PO SCH (23:03)
[2019-06-16] MEDS: LIDOCAINE PATCH REMOVAL MC SCH (23:04)
[2019-06-17] MEDS ORDERED: METHADONE HCL 5 MG TABLET (FOR DETOX USE ONLY) PO ONE (06:00)
[2019-06-17] MEDS: METHOCARBAMOL 500 MG TABLET PO PRN (07:20)
[2019-06-17 09:24] VITALS: BP 153/97; PULSE 89; TEMP 98.1
--- NOTE | 2019-06-17 09:44 | DS ---
[facility] Detox Discharge Summary Admission Date: 06/14/19 Discharge Date: 06/17/19 - History Present History: Alcohol Dependence, Cannabis Dependence, Cocaine Dependence, Opioid Dependence, Sedative Dependence - Physical Exam Results Vital Signs: Vital Signs Temperature 98.1 F 06/17/19 09:23 Pulse Rate 89 06/17/19 09:23 Respiratory Rate 18 06/17/19 09:23 Blood Pressure 153/97 06/17/19 09:23 O2 Sat by Pulse Oximetry (%) Pertinent Admission Physical Exam Findings: pt arrived in withdrawals Laboratory Tests 06/14/19 06/15/19 06/15/19 10:33 07:32 07:32 WBC 6.2 RBC 4.43 Hgb 12.8 Hct 38.2 MCV 86.2 MCH 28.8 MCHC 33.4 RDW 14.3 Plt Count 350 MPV 9.0 Sodium 141 Potassium 4.2 Chloride 106 Carbon Dioxide 29 Anion Gap 5 L BUN 16.6 Creatinine 0.8 Est GFR (CKD-EPI)AfAm 99.63 Est GFR (CKD-EPI)NonAf 85.96 Random Glucose 101 Calcium 9.0 Total Bilirubin 0.4 AST 9 L ALT 14 Alkaline Phosphatase 100 Total Protein 7.0 Albumin 3.6 POC Urine HCG, Qual Negative RPR Titer HIV 1&2 Antibody Screen HIV P24 Antigen 06/15/19 06/15/19 07:32 07:32 WBC RBC Hgb Hct MCV MCH MCHC RDW Plt Count MPV Sodium Potassium Chloride Carbon Dioxide Anion Gap BUN Creatinine Est GFR (CKD-EPI)AfAm Est GFR (CKD-EPI)NonAf Random Glucose Calcium Total Bilirubin AST ALT Alkaline Phosphatase Total Protein Albumin POC Urine HCG, Qual RPR Titer Nonreactive HIV 1&2 Antibody Screen Negative HIV P24 Antigen Negative today pt is aaox3 ambulating no acute distress no s/s of withdrawals - Treatment Hospital Course: Detox Protocol Followed, Detoxed Safely, Responded well, Discharged Condition Good, Rehab Referral Accepted Patient has Accepted a Rehab Referral to: pt was referred [facility] - Medication Discharge Medications: Ambulatory Orders Omeprazole 40 mg PO DAILY 02/27/17 Albuterol Sulfate Inhaler - [Ventolin HFA Inhaler -] 2 inh PO Q4H PRN #1 inhaler 10/10/18 Quetiapine Fumarate [Seroquel -] 100 mg PO HS 03/07/19 Ibuprofen [Motrin -] 600 mg PO BID PRN 06/14/19 Quetiapine Fumarate [Seroquel -] 50 mg PO DAILY 06/14/19 - Diagnosis (1) Opioid dependence with withdrawal Current Visit: Yes Status: Chronic (2) Substance-induced sleep disorder Current Visit: Yes Status: Acute (3) Cocaine dependence Current Visit: Yes Status: Chronic Qualifiers: Substance use status: uncomplicated (4) Mood disorder Current Visit: Yes Status: Chronic (5) Nicotine dependence Current Visit: Yes Status: Chronic Qualifiers: Nicotine product type: cigarettes Substance use status: uncomplicated Qualified Code(s): F17.210 - Nicotine dependence, cigarettes, uncomplicated (6) Osteoarthritis of both knees Current Visit: Yes Status: Chronic (7) Bipolar disorder Current Visit: Yes Status: Ruled-out (8) Cannabis dependence Current Visit: Yes Status: Chronic (9) Depression Current Visit: No Status: Acute (10) Substance induced mood disorder Current Visit: No Status: Acute (11) Asthma Current Visit: Yes Status: Chronic Qualifiers: Asthma severity: mild Asthma persistence: intermittent Asthma complication type: uncomplicated Qualified Code(s): J45.20 - Mild intermittent asthma, uncomplicated (12) Bipolar disorder Current Visit: No Status: Chronic (13) Cocaine dependence Current Visit: Yes Status: Chronic Qualifiers: Substance use status: uncomplicated Qualified Code(s): F14.20 - Cocaine dependence, uncomplicated (14) GERD (gastroesophageal reflux disease) Current Visit: Yes Status: Chronic Qualifiers: Esophagitis presence: without esophagitis Qualified Code(s): K21.9 - Gastro -esophageal reflux disease without esophagitis (15) History of bipolar disorder Current Visit: No Status: Chronic (16) Insomnia Current Visit: No Status: Chronic (17) Low back pain Current Visit: No Status: Chronic Qualifiers: (18) Opioid dependence with withdrawal Current Visit: Yes Status: Chronic (19) Substance induced mood disorder Current Visit: No Status: Chronic (20) Substance or medication-induced sleep disorder, insomnia type Current Visit: No Status: Chronic (21) History of OCD (obsessive compulsive disorder) Current Visit: No Status: Suspected (22) Carcinoma uterine cervix in situ Current Visit: No Status: Resolved Qualifiers: Carcinoma in situ of uterine cervix location: unspecified part of cervix Qualified Code(s): D06.9 - Carcinoma in situ of cervix, unspecified - AMA Did Patient Leave Against Medical Advice: No ([facility])
[2019-06-17] MEDS: LIDOCAINE 5% TOPICAL PATCH TP SCH (10:22)
[2019-06-17] MEDS: PRENATAL VITAMINS W/ FOLIC ACID TABLET (FP) PO SCH (10:22)
[2019-06-17] MEDS: QUEtiapine FUMARATE 50 MG TABLET PO SCH (10:22)
== END 2019-06-17 11:42 | disposition home or self-care (01) | DRG 773 ==
LOC: YASAS 09:41 → Y6N 11:56
PROVIDERS: ADMIT Surgery; ATTEND Surgery
PROC: HZ2ZZZZ Detoxification Services for Substance Abuse Treatment (ICD-10-PCS; principal; 2019-06-14)
DX: F11.23 Opioid dependence with withdrawal (principal); F14.20 Cocaine dependence, uncomplicated; F12.20 Cannabis dependence, uncomplicated; F17.210 Nicotine dependence, cigarettes, uncomplicated; F19.24 Other psychoactive substance dependence with psychoactive substance-induced mood disorder; F19.282 Other psychoactive substance dependence with psychoactive substance-induced sleep disorder; F39 Unspecified mood [affective] disorder; F32.9 Major depressive disorder, single episode, unspecified; I10 Essential (primary) hypertension; K21.9 Gastro-esophageal reflux disease without esophagitis; M17.0 Bilateral primary osteoarthritis of knee; J45.20 Mild intermittent asthma, uncomplicated; G47.00 Insomnia, unspecified; M54.5 Low back pain; G89.29 Other chronic pain; D06.9 Carcinoma in situ of cervix, unspecified; Z88.8 Allergy status to other drugs, medicaments and biological substances; Z91.14 Patient's other noncompliance with medication regimen
CPT/HCPCS: 36415; 80053; 81025; 85027; 86593; 87389; J0735

== ENCOUNTER 2019-07-28 15:20 | Inpatient (IN) | payer OTHER ==
[2019-07-28 18:13] VITALS: BMI 31.0
--- NOTE | 2019-07-28 19:47 | HP ---
COWS - Scale Resting Pulse: 0= [place] 80 or Below Sweatin= Chills/Flushing Restless Observation: 0= Sits Still Pupil Size: 0= Normal to Room Light Bone or Joint Aches: 2= Severe Diffuse Aches Runny Nose/ Eye Tearin= None GI Upset > 30mins: 2= Nausea/Diarrhea Tremor Observation: 0= None Yawning Observation: 0= None Anxiety or Irritability: 2=Irritable/Anxious Goose Flesh Skin: 0=Smooth Skin COWS Score: 7 CIWA Score - Admission Criteria [facility]ASAS Guidelines: Admission for Medically Managed Detox: Requires at least one of the followin. CIWA greater than 12 2. Seizures within the past 24 hours 3. Delirium tremens within the past 24 hours 4. Hallucinations within the past 24 hours 5. Acute intervention needed for co occurring medical disorder 6. Acute intervention needed for co occurring psychiatric disorder 7. Severe withdrawal that cannot be handled at a lower level of care (continued vomiting, continued diarrhea, abnormal vital signs) requiring intravenous medication and/or fluids 8. Admission ROS [facility] Allergies/Adverse Reactions: Allergies Allergy/AdvReac Type Severity Reaction Status Date / Time chlordiazepoxide Allergy Verified 07/28/19 18:06 [From Librium] librium Allergy Severe Difficulty Uncoded 07/28/19 18:06 Breathing History of Present Illness: This report was requested by: Joy Gifford | Reference #: [id number] Others' Prescriptions Patient Name: Leydi Tolbert Date: 1970 Address: [address] [place] [address] Sex: Female Rx Written Rx Dispensed Drug Quantity Days Supply Prescriber Name 05/13/2019 05/13/2019 suboxone 8 mg-2 mg sl film 28 14 Molly Michelle MD Patient Name: Leydi Tolbert Date: 1970 Address: [address] [place] [address] Sex: Female Rx Written Rx Dispensed Drug Quantity Days Supply Prescriber Name 02/07/2019 02/07/2019 buprenorphine-naloxone 8-2 mg sl film 14 7 Madhavi Ortiz A/C TECH pt here requesting detox from heroin use , reports 10 bags/day via inhalation denies ivdu , reports relapse 2 days after d/c from this facility in May with increase in use of heroin . latest use yesterday , current symptoms as above . Latest Suboxone use states " last month " cocaine : crack daily 200-300$/day cannabis: 2 x/ month tobacco :2 cigs/day denies other illicits or etoh pmhx : chi knee OA , l-spine chronic pain ,sciatica, Asthma Exam Limitations: Clinical Condition - Ebola screening Have you traveled outside of the country in the last 21 days: No (N) Have you had contact with anyone from an Ebola affected area: No Do you have a fever: No - Review of Systems Constitutional: See HPI, Loss of Appetite Respiratory: reports: No Symptoms reported Cardiac: reports: No Symptoms Reported GI: reports: See HPI : reports: No Symptoms Reported Musculoskeletal: reports: See HPI Integumentary: reports: No Symptoms Reported Neuro: reports: See HPI, Headache Endocrine: reports: No Symptoms Reported Psychiatric: reports: Orientated x3, Depressed Patient History - Patient Medical History Hx Anemia: Yes (no med) Hx Asthma: Yes (on albuterol inhaler) Hx Chronic Obstructive Pulmonary Disease (COPD): No Hx Cancer: Yes (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) Hx Cardiac Disorders: No Hx Congestive Heart Failure: No Hx Hypertension: Yes (non compliance) Hx Hypercholesterolemia: No Hx Pacemaker: No HX Cerebrovascular Accident: No Hx Seizures: No Hx Dementia: No Hx Diabetes: No Hx Gastrointestinal Disorders: Yes (GERD) Hx Liver Disease: No Hx Genitourinary Disorders: No Hx Sexually Transmitted Disorders: No Hx Renal Disease (ESRD): No Hx Thyroid Disease: No Hx Human Immunodeficiency Virus (HIV): No (NEGATIVE HX last 02/15) Hx Hepatitis C: No Hx Depression: Yes (on med) Hx Suicide Attempt: No Hx Bipolar Disorder: No Hx Schizophrenia: No - Patient Surgical History Past Surgical History: Yes Hx Neurologic Surgery: No Hx Cataract Extraction: No Hx Cardiac Surgery: No Hx Lung Surgery: No Hx Breast Surgery: No Hx Breast Biopsy: No Hx Abdominal Surgery: No Hx Appendectomy: No Hx Cholecystectomy: Yes (lap in 2006) Hx Genitourinary Surgery: Yes (carcinoma in situ s/p conization in 2013) Hx Section: No Hx Orthopedic Surgery: No Other Surgical History: Pt had a culposcopy. Anesthesia Reaction: No - PPD History Date: 10/08/18 Results: 0mm - Reproductive History Last Menstrual Period: 04/01/19 - Smoking Cessation Smoking history: Current every day smoker Have you smoked in the past 12 months: Yes Aproximately how many cigarettes per day: 20 Cigars Per Day: 0 Hx Chewing Tobacco Use: No Initiated information on smoking cessation: No - Substances abused Heroin Substance route: Inhalation Frequency: Daily Amount used: 9 bags Age of first use: 30 Date of last use: 07/28/19 Cocaine Substance route: Smoking Frequency: Daily Amount used: 25 bags Age of first use: 30 Date of last use: 07/28/19 Alcohol Substance route: Oral Frequency: 1-3 times last 30 days Amount used: 2 beers Age of first use: 47 Date of last use: 03/05/19 Marijuana/Hashish Substance route: Smoking Frequency: 1-2 times per week Amount used: 5$ Age of first use: 13 Date of last use: 07/28/19 Alprazolam (Xanax) Substance route: Oral Frequency: 1-3 times last 30 days Amount used: 2mgs Age of first use: 48 Date of last use: 03/06/19 Other Other (specify): klonopin Substance route: Oral Frequency: Daily Amount used: 1mg Age of first use: 48 Date of last use: 05/30/19 Family Disease History - Family Disease History Family Disease History: Heart Disease: Grandparent, Other: Father ( - alcohol), Mother (arthritis) Admission Physical Exam S - Vital Signs Vital Signs: Vital Signs - 24 hr 07/28/19 18:06 Temperature 97.3 F L Pulse Rate 82 Respiratory 18 Rate Blood Pressure 155/95 - Physical General Appearance: Yes: Disheveled, Mild Distress, Irritable HEENTM: Yes: EOMI, Hearing grossly Normal, Normocephalic, Normal Voice, Nasal Congestion Respiratory: Yes: Chest Non-Tender, No Respiratory Distress, No Accessory Muscle Use, Wheezing (RUL) Neck: Yes: No masses,lesions,Nodules, Trachea in good position Cardiology: Yes: Regular Rhythm, Regular Rate, S1, S2 Abdominal: Yes: Non Tender, Soft Musculoskeletal: Yes: Gait Steady Extremities: Yes: Normal Range of Motion, Non-Tender Neurological: Yes: Fully Oriented, Alert, Motor Strength 5/5 Integumentary: Yes: Warm - Diagnostic (1) Cannabis dependence Current Visit: Yes Status: Chronic (2) Cocaine dependence Current Visit: Yes Status: Chronic Qualifiers: Substance use status: uncomplicated Qualified Code(s): F14.20 - Cocaine dependence, uncomplicated (3) Nicotine dependence Current Visit: Yes Status: Chronic Qualifiers: Nicotine product type: cigarettes Substance use status: uncomplicated Qualified Code(s): F17.210 - Nicotine dependence, cigarettes, uncomplicated (4) Opioid dependence with withdrawal Current Visit: Yes Status: Chronic Breathalyzer - Breathalyzer Breathalyzer: 0 POC Urine test - Test device test lot number: [id number] Expiration date: 07/30/20 - Control test control: Yes Urine Drug Screen - Test Device Lot number: [id number] Expiration date: 04/28/19 - Control Is test valid?: Yes - Results Drug screen NEGATIVE: No Urine drug screen results: THC-Marijuana, CLINTON-Cocaine, FEN-Fentanyl, MOP-Opiates , OXY-Oxycodone, BUP-Suboxone Inpatient Rehab Admission - Rehab Decision to Admit Inpatient rehab admission?: No
[2019-07-28] MEDS ORDERED: BISMUTH SUBSALICYLATE 524 MG/30 ML UD PO PRN (19:53)
[2019-07-28] MEDS ORDERED: cloNIDine HCL 0.1 MG TABLET PO PRN (19:53)
[2019-07-28] MEDS ORDERED: MAGNESIUM HYDROX 2400MG/30ML ORAL SUSPENSION 30 ML CUP PO PRN (19:53)
[2019-07-28] MEDS ORDERED: MAGNESIUM CITRATE 300 ML BOTTLE PO PRN (19:53)
[2019-07-28] MEDS ORDERED: METHADONE HCL 10 MG TABLET (FOR DETOX USE ONLY) PO ONE (19:53)
[2019-07-28] MEDS ORDERED: ACETAMINOPHEN 325 MG TABLET (FP) PO PRN ×2 (19:53)
[2019-07-28] MEDS ORDERED: MENTHOL/PHENOL 1 EACH UD MM PRN (19:53)
[2019-07-28] MEDS ORDERED: MAG HYDROX/AL HYDROX/SIMETH 30 ML UNIT-DOSE CUP PO PRN (19:53)
[2019-07-28] MEDS ORDERED: NICOTINE POLACRILEX 2 MG GUM BUC PRN (19:53)
[2019-07-28] MEDS ORDERED: ALBUTEROL SO4 8 GM HFA INHALER IH PRN (19:54)
[2019-07-28] MEDS ORDERED: ALBUTEROL SO4 0.083% IH SOL 2.5 MG/3 ML VIAL.NEB. NEB PRN (19:54)
[2019-07-28] MEDS: IBUPROFEN 400 MG TABLET (FP) PO PRN (20:56)
[2019-07-28] MEDS: THIAMINE HCL 100 MG TABLET (FP) PO SCH (22:53)
[2019-07-29] MEDS ORDERED: METHADONE HCL 10 MG TABLET (FOR DETOX USE ONLY) ONE (08:39)
[2019-07-29] MEDS ORDERED: METHADONE HCL 5 MG TABLET (FOR DETOX USE ONLY) ONE (08:39)
[2019-07-29] MEDS ORDERED: METHADONE (DETOX) 20 MG, METHADONE (DETOX) 5 MG PO ONE (10:00)
[2019-07-29 10:05] LABS: HEMATOCRIT 40.7 % (32.4-45.2); HEMOGLOBIN 13.4 GM/dL (10.7-15.3); MCH 28.8 pg (25.7-33.7); MCHC 32.9 g/dl (32.0-36.0); MEAN CELL VOLUME 87.5 fl (80-96); MEAN PLT VOLUME 9.6 fl (7.5-11.1); PLATELET COUNT 260 K/MM3 (134-434); RBC 4.65 M/mm3 (3.60-5.2); RDW 13.8 % (11.6-15.6); WHITE BLOOD COUNT 6.9 K/mm3 (4.0-10.0)
[2019-07-29 10:10] LABS: ALBUMIN 3.6 g/dl (3.4-5.0); BILIRUBIN,TOTAL 0.2 mg/dL (0.2-1); BLOOD UREA NITROGEN 15.2 mg/dL (7-18); CALCIUM 9.4 mg/dL (8.5-10.1); CREATININE 0.7 mg/dL (0.55-1.3); TOT PROT 6.8 g/dl (6.4-8.2)
[2019-07-29] MEDS: PRENATAL VITAMINS W/ FOLIC ACID TABLET (FP) PO SCH (10:17)
[2019-07-29] MEDS: IBUPROFEN 400 MG TABLET (FP) PO PRN (10:18)
--- NOTE | 2019-07-29 12:50 | PN ---
BHS COWS - Scale Resting Pulse: 0= [place] 80 or Below Sweatin= Chills/Flushing Restless Observation: 1= Difficult to Sit Still Pupil Size: 0= Normal to Room Light Bone or Joint Aches: 2= Severe Diffuse Aches Runny Nose/ Eye Tearin= Nasal Congestion GI Upset > 30mins: 0= None Tremor Observation of Outstretched Hands: 1= Tremor [place], Not Seen Yawning Observation: 1= 1-2x During Session Anxiety or Irritability: 1=Feels Anxious/Irritable Goose Flesh Skin: 0=Smooth Skin COWS Score: 8 BHS Progress Note (SOAP) Subjective: chronic body aches/pain sweats shakes interrupted sleep Objective: 07/29/19 12:48 Vital Signs Temperature 97.3 F L 07/29/19 12:39 Pulse Rate 89 07/29/19 12:39 Respiratory Rate 18 07/29/19 12:39 Blood Pressure 157/80 07/29/19 12:39 O2 Sat by Pulse Oximetry (%) Laboratory Tests 07/28/19 07/29/19 07/29/19 18:37 07:30 07:30 WBC 6.9 RBC 4.65 Hgb 13.4 Hct 40.7 MCV 87.5 MCH 28.8 MCHC 32.9 RDW 13.8 Plt Count 260 D MPV 9.6 Sodium 141 Potassium 4.0 Chloride 104 Carbon Dioxide 33 H Anion Gap 4 L BUN 15.2 Creatinine 0.7 Est GFR (CKD-EPI)AfAm 117.09 Est GFR (CKD-EPI)NonAf 101.02 Random Glucose 92 Calcium 9.4 Total Bilirubin 0.2 AST 9 L ALT 13 Alkaline Phosphatase 93 Total Protein 6.8 Albumin 3.6 POC Urine HCG, Qual Negative RPR Titer 07/29/19 07:30 WBC RBC Hgb Hct MCV MCH MCHC RDW Plt Count MPV Sodium Potassium Chloride Carbon Dioxide Anion Gap BUN Creatinine Est GFR (CKD-EPI)AfAm Est GFR (CKD-EPI)NonAf Random Glucose Calcium Total Bilirubin AST ALT Alkaline Phosphatase Total Protein Albumin POC Urine HCG, Qual RPR Titer Nonreactive labs noted aaox3 ambulating no acute distress Assessment: 07/29/19 12:49 withdrawals sx Plan: continue detox increase fluids lidocaine patch ordered motrin 600mg prn
[2019-07-29] MEDS: diazePAM 5 MG TABLET PO PRN (13:49)
[2019-07-29] MEDS: THIAMINE HCL 100 MG TABLET (FP) PO SCH (22:03)
[2019-07-29] MEDS: MELATONIN 5 MG TABLETS PO PRN (22:04)
[2019-07-29] MEDS: IBUPROFEN 600 MG TABLET (FP) PO PRN (22:05)
[2019-07-30] MEDS ORDERED: METHADONE HCL 10 MG TABLET (FOR DETOX USE ONLY) PO ONE (10:00)
[2019-07-30] MEDS: PRENATAL VITAMINS W/ FOLIC ACID TABLET (FP) PO SCH (10:34)
[2019-07-30] MEDS: diazePAM 5 MG TABLET PO PRN ×2 (10:36→22:19)
[2019-07-30] MEDS: IBUPROFEN 600 MG TABLET (FP) PO PRN ×2 (10:37→22:18)
[2019-07-30] MEDS: METHOCARBAMOL 500 MG TABLET PO PRN ×2 (10:37→22:18)
--- NOTE | 2019-07-30 10:59 | PN ---
BHS COWS - Scale Resting Pulse: 1= [place] 81-100 Sweatin= Beads of Sweat on Face Restless Observation: 1= Difficult to Sit Still Pupil Size: 0= Normal to Room Light Bone or Joint Aches: 1= Mild Discomfort Runny Nose/ Eye Tearin= None GI Upset > 30mins: 0= None Tremor Observation of Outstretched Hands: 2= Slight Tremor Visible Yawning Observation: 1= 1-2x During Session Anxiety or Irritability: 1=Feels Anxious/Irritable Goose Flesh Skin: 0=Smooth Skin COWS Score: 10 BHS Progress Note (SOAP) Subjective: c/o sweats, anxiety, and muscle aches. Objective: 07/30/19 10:58 Vital Signs 07/30/19 07/30/19 07/30/19 03:30 07:14 09:45 Temperature 97.9 F 97.9 F Pulse Rate 94 H 79 83 Respiratory 18 18 17 Rate Blood Pressure 157/77 150/87 Lab Results WBC 6.9 K/mm3 (4.0-10.0) 07/29/19 07:30 RBC 4.65 M/mm3 (3.60-5.2) 07/29/19 07:30 Hgb 13.4 GM/dL (10.7-15.3) 07/29/19 07:30 Hct 40.7 % (32.4-45.2) 07/29/19 07:30 MCV 87.5 fl (80-96) 07/29/19 07:30 MCHC 32.9 g/dl (32.0-36.0) 07/29/19 07:30 RDW 13.8 % (11.6-15.6) 07/29/19 07:30 Plt Count 260 K/MM3 (134-434) D 07/29/19 07:30 Sodium 141 mmol/L (136-145) 07/29/19 07:30 Potassium 4.0 mmol/L (3.5-5.1) 07/29/19 07:30 Chloride 104 mmol/L (98-107) 07/29/19 07:30 Carbon Dioxide 33 mmol/L (21-32) H 07/29/19 07:30 Anion Gap 4 MMOL/L (8-16) L 07/29/19 07:30 BUN 15.2 mg/dL (7-18) 07/29/19 07:30 Creatinine 0.7 mg/dL (0.55-1.3) 07/29/19 07:30 Random Glucose 92 mg/dL (74-106) 07/29/19 07:30 Calcium 9.4 mg/dL (8.5-10.1) 07/29/19 07:30 Labs noted. Assessment: 07/30/19 10:58 AOX3, in no acute respiratory distress. Full ROM, ambulating in the unit. withdrawal symptoms. Plan: continue detox.
[2019-07-30] MEDS: QUEtiapine FUMARATE 50 MG TABLET PO SCH ×2 (13:53→22:16)
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
[2019-07-30] MEDS: THIAMINE HCL 100 MG TABLET (FP) PO SCH (22:16)
[2019-07-31] MEDS: IBUPROFEN 600 MG TABLET (FP) PO PRN (07:07)
[2019-07-31] MEDS ORDERED: METHADONE HCL 10 MG TABLET (FOR DETOX USE ONLY) ONE (09:35)
[2019-07-31] MEDS ORDERED: METHADONE HCL 5 MG TABLET (FOR DETOX USE ONLY) ONE (09:35)
[2019-07-31] MEDS ORDERED: METHADONE (DETOX) 10 MG, METHADONE (DETOX) 5 MG PO ONE (10:00)
[2019-07-31] MEDS: diazePAM 5 MG TABLET PO PRN ×2 (10:20→17:15)
[2019-07-31] MEDS: METHOCARBAMOL 500 MG TABLET PO PRN ×2 (10:21→17:15)
[2019-07-31] MEDS: hydrOXYzine PAMOATE 25 MG CAPSULE (FP) PO PRN ×2 (10:21→17:16)
[2019-07-31] MEDS: PRENATAL VITAMINS W/ FOLIC ACID TABLET (FP) PO SCH (10:51)
[2019-07-31] MEDS: QUEtiapine FUMARATE 50 MG TABLET PO SCH ×2 (10:51→22:06)
[2019-07-31] MEDS: GABAPENTIN 100 MG CAPSULE (FP) PO SCH ×2 (13:05→22:06)
[2019-07-31] MEDS ORDERED: cloNIDine HCL 0.1 MG TABLET PO PRN (16:00)
--- NOTE | 2019-07-31 16:02 | PN ---
BHS COWS - Scale Resting Pulse: 1= [place] 81-100 Sweatin= Chills/Flushing Restless Observation: 1= Difficult to Sit Still Pupil Size: 0= Normal to Room Light Bone or Joint Aches: 2= Severe Diffuse Aches Runny Nose/ Eye Tearin= None GI Upset > 30mins: 1= Stomach Cramp Tremor Observation of Outstretched Hands: 2= Slight Tremor Visible Yawning Observation: 0= None Anxiety or Irritability: 1=Feels Anxious/Irritable Goose Flesh Skin: 0=Smooth Skin COWS Score: 9 BHS Progress Note (SOAP) Subjective: Pain in the bones, back/leg pain. Patient stated she was takes gabapentin 600mg bid at home and is requesting to resume it but there's no prove in chart. Objective: 07/31/19 15:59 Last Vital Signs Temp Pulse Resp BP Pulse Ox 98.5 F 89 18 142/88 07/31/19 13:48 07/31/19 13:48 07/31/19 13:48 07/31/19 13:48 Elevated b/p noted (has htn, not on medication) Laboratory Tests 07/28/19 07/29/19 07/29/19 18:37 07:30 07:30 WBC 6.9 RBC 4.65 Hgb 13.4 Hct 40.7 MCV 87.5 MCH 28.8 MCHC 32.9 RDW 13.8 Plt Count 260 D MPV 9.6 Sodium 141 Potassium 4.0 Chloride 104 Carbon Dioxide 33 H Anion Gap 4 L BUN 15.2 Creatinine 0.7 Est GFR (CKD-EPI)AfAm 117.09 Est GFR (CKD-EPI)NonAf 101.02 Random Glucose 92 Calcium 9.4 Total Bilirubin 0.2 AST 9 L ALT 13 Alkaline Phosphatase 93 Total Protein 6.8 Albumin 3.6 POC Urine HCG, Qual Negative RPR Titer 07/29/19 07:30 WBC RBC Hgb Hct MCV MCH MCHC RDW Plt Count MPV Sodium Potassium Chloride Carbon Dioxide Anion Gap BUN Creatinine Est GFR (CKD-EPI)AfAm Est GFR (CKD-EPI)NonAf Random Glucose Calcium Total Bilirubin AST ALT Alkaline Phosphatase Total Protein Albumin POC Urine HCG, Qual RPR Titer Nonreactive Labs reviewed Assessment: 07/31/19 16:02 Withdrawal sxs Noted with elevated b/p Plan: Continue detox Encouraged PO water intake Elevated b/p: start clonidine prn
[2019-07-31] MEDS: MELATONIN 5 MG TABLETS PO PRN (22:05)
[2019-07-31] MEDS: THIAMINE HCL 100 MG TABLET (FP) PO SCH (22:05)
[2019-08-01] MEDS: GABAPENTIN 100 MG CAPSULE (FP) PO SCH ×3 (06:12→22:16)
[2019-08-01] MEDS: METHOCARBAMOL 500 MG TABLET PO PRN ×2 (06:14→22:19)
[2019-08-01] MEDS: IBUPROFEN 600 MG TABLET (FP) PO PRN ×3 (06:14→22:18)
[2019-08-01] MEDS ORDERED: METHADONE HCL 10 MG TABLET (FOR DETOX USE ONLY) PO ONE (10:00)
[2019-08-01] MEDS ORDERED: PANTOPRAZOLE 40 MG TABLET (FP) PO ONE (10:04)
[2019-08-01] MEDS: LIDOCAINE 5% TOPICAL PATCH TP SCH (10:07)
[2019-08-01] MEDS: QUEtiapine FUMARATE 50 MG TABLET PO SCH ×2 (10:08→22:16)
[2019-08-01] MEDS: PRENATAL VITAMINS W/ FOLIC ACID TABLET (FP) PO SCH (10:08)
--- NOTE | 2019-08-01 11:59 | PN ---
BHS COWS - Scale Resting Pulse: 1= [place] 81-100 Sweatin= No chills or Flushing Restless Observation: 1= Difficult to Sit Still Pupil Size: 0= Normal to Room Light Bone or Joint Aches: 1= Mild Discomfort Runny Nose/ Eye Tearin= None GI Upset > 30mins: 0= None Tremor Observation of Outstretched Hands: 0= None Yawning Observation: 0= None Anxiety or Irritability: 1=Feels Anxious/Irritable Goose Flesh Skin: 0=Smooth Skin COWS Score: 4 BHS Progress Note (SOAP) Subjective: acid reflux sweats anxiety Objective: 08/01/19 11:58 Vital Signs Temperature 98.1 F 08/01/19 10:00 Pulse Rate 87 08/01/19 10:00 Respiratory Rate 18 08/01/19 10:00 Blood Pressure 131/69 08/01/19 10:00 O2 Sat by Pulse Oximetry (%) aaox3 ambulating no acute distress Assessment: 08/01/19 11:58 mild withdrawals Plan: continue detox increase fluids protonix 40mg daily d/c in am
[2019-08-01] MEDS ORDERED: LIDOCAINE VISCOUS 2% ORAL/TOP 100 ML BOTTLE MM PRN (13:52)
[2019-08-01] MEDS ORDERED: LIDOCAINE PATCH REMOVAL MC SCH (22:00)
[2019-08-01] MEDS: THIAMINE HCL 100 MG TABLET (FP) PO SCH (22:16)
[2019-08-01] MEDS: MELATONIN 5 MG TABLETS PO PRN (22:18)
[2019-08-02] MEDS: GABAPENTIN 100 MG CAPSULE (FP) PO SCH (05:50)
[2019-08-02] MEDS: IBUPROFEN 600 MG TABLET (FP) PO PRN (05:51)
[2019-08-02] MEDS: METHOCARBAMOL 500 MG TABLET PO PRN (05:51)
[2019-08-02] MEDS ORDERED: METHADONE HCL 5 MG TABLET (FOR DETOX USE ONLY) PO ONE (06:00)
--- NOTE | 2019-08-02 08:54 | DS ---
[facility] Detox Discharge Summary Admission Date: 07/28/19 Discharge Date: 08/02/19 - History Present History: Cannabis Dependence, Cocaine Dependence, Opioid Dependence - Physical Exam Results Vital Signs: Vital Signs Temperature 97.9 F 08/02/19 06:00 Pulse Rate 83 08/02/19 06:00 Respiratory Rate 18 08/02/19 06:00 Blood Pressure 149/60 08/02/19 06:00 O2 Sat by Pulse Oximetry (%) Pertinent Admission Physical Exam Findings: pt arrived in withdrawals Laboratory Tests 07/28/19 07/29/19 07/29/19 18:37 07:30 07:30 WBC 6.9 RBC 4.65 Hgb 13.4 Hct 40.7 MCV 87.5 MCH 28.8 MCHC 32.9 RDW 13.8 Plt Count 260 D MPV 9.6 Sodium 141 Potassium 4.0 Chloride 104 Carbon Dioxide 33 H Anion Gap 4 L BUN 15.2 Creatinine 0.7 Est GFR (CKD-EPI)AfAm 117.09 Est GFR (CKD-EPI)NonAf 101.02 Random Glucose 92 Calcium 9.4 Total Bilirubin 0.2 AST 9 L ALT 13 Alkaline Phosphatase 93 Total Protein 6.8 Albumin 3.6 POC Urine HCG, Qual Negative RPR Titer 07/29/19 07:30 WBC RBC Hgb Hct MCV MCH MCHC RDW Plt Count MPV Sodium Potassium Chloride Carbon Dioxide Anion Gap BUN Creatinine Est GFR (CKD-EPI)AfAm Est GFR (CKD-EPI)NonAf Random Glucose Calcium Total Bilirubin AST ALT Alkaline Phosphatase Total Protein Albumin POC Urine HCG, Qual RPR Titer Nonreactive today pt is aaox3 ambulating no acute distress no s/s of withdrawals - Treatment Hospital Course: Detox Protocol Followed, Detoxed Safely, Responded well, Discharged Condition Good, Rehab Referral Accepted Patient has Accepted a Rehab Referral to: pt referred to [facility] - Medication Discharge Medications: Ambulatory Orders Omeprazole 40 mg PO DAILY 02/27/17 Albuterol Sulfate Inhaler - [Ventolin HFA Inhaler -] 2 inh PO Q4H PRN #1 inhaler 10/10/18 Quetiapine Fumarate [Seroquel -] 100 mg PO HS 03/07/19 Ibuprofen [Motrin -] 600 mg PO BID PRN 06/14/19 Quetiapine Fumarate [Seroquel -] 50 mg PO DAILY 06/14/19 - Diagnosis (1) Opioid dependence with withdrawal Current Visit: Yes Status: Chronic (2) Cannabis dependence Current Visit: Yes Status: Chronic (3) Cocaine dependence Current Visit: Yes Status: Chronic Qualifiers: Substance use status: uncomplicated Qualified Code(s): F14.20 - Cocaine dependence, uncomplicated (4) History of bipolar disorder Current Visit: Yes Status: Chronic (5) Insomnia Current Visit: Yes Status: Chronic Qualifiers: Insomnia type: unspecified Qualified Code(s): G47.00 - Insomnia, unspecified (6) Nicotine dependence Current Visit: Yes Status: Chronic Qualifiers: Nicotine product type: cigarettes Substance use status: uncomplicated Qualified Code(s): F17.210 - Nicotine dependence, cigarettes, uncomplicated (7) Non-compliance Current Visit: Yes Status: Chronic (8) Substance induced mood disorder Current Visit: Yes Status: Chronic (9) Depression Current Visit: No Status: Acute (10) Substance-induced sleep disorder Current Visit: No Status: Acute (11) Asthma Current Visit: Yes Status: Chronic Qualifiers: Asthma severity: mild Asthma persistence: intermittent Asthma complication type: uncomplicated Qualified Code(s): J45.20 - Mild intermittent asthma, uncomplicated (12) GERD (gastroesophageal reflux disease) Current Visit: Yes Status: Chronic Qualifiers: Esophagitis presence: without esophagitis Qualified Code(s): K21.9 - Gastro -esophageal reflux disease without esophagitis (13) Low back pain Current Visit: No Status: Chronic Qualifiers: (14) Mood disorder Current Visit: No Status: Chronic (15) Osteoarthritis of both knees Current Visit: Yes Status: Chronic Qualifiers: Osteoarthritis type: unspecified Qualified Code(s): M17.0 - Bilateral primary osteoarthritis of knee (16) Substance induced mood disorder Current Visit: No Status: Chronic (17) Substance or medication-induced sleep disorder, insomnia type Current Visit: No Status: Chronic (18) Carcinoma uterine cervix in situ Current Visit: No Status: Resolved Qualifiers: Carcinoma in situ of uterine cervix location: unspecified part of cervix Qualified Code(s): D06.9 - Carcinoma in situ of cervix, unspecified - AMA Did Patient Leave Against Medical Advice: No
[2019-08-02 09:22] VITALS: BP 127/76; PULSE 92; TEMP 98.1
[2019-08-02] MEDS ORDERED: PANTOPRAZOLE 40 MG TABLET (FP) PO SCH (10:00)
[2019-08-02] MEDS: PRENATAL VITAMINS W/ FOLIC ACID TABLET (FP) PO SCH (10:12)
[2019-08-02] MEDS: QUEtiapine FUMARATE 50 MG TABLET PO SCH (10:13)
[2019-08-02] MEDS: hydrOXYzine PAMOATE 25 MG CAPSULE (FP) PO PRN (10:14)
[2019-08-02] MEDS: LIDOCAINE 5% TOPICAL PATCH TP SCH (10:28)
== END 2019-08-02 11:37 | disposition other institution (70) | DRG 773 ==
LOC: YASAS 15:20 → Y6N 20:12
PROVIDERS: ADMIT Surgery; ATTEND Surgery
PROC: HZ2ZZZZ Detoxification Services for Substance Abuse Treatment (ICD-10-PCS; principal; 2019-07-28)
DX: F11.23 Opioid dependence with withdrawal (principal); F14.20 Cocaine dependence, uncomplicated; F12.20 Cannabis dependence, uncomplicated; F17.210 Nicotine dependence, cigarettes, uncomplicated; F19.282 Other psychoactive substance dependence with psychoactive substance-induced sleep disorder; F19.24 Other psychoactive substance dependence with psychoactive substance-induced mood disorder; I10 Essential (primary) hypertension; J45.20 Mild intermittent asthma, uncomplicated; K21.9 Gastro-esophageal reflux disease without esophagitis; G47.00 Insomnia, unspecified; M17.11 Unilateral primary osteoarthritis, right knee; Z86.59 Personal history of other mental and behavioral disorders; Z85.41 Personal history of malignant neoplasm of cervix uteri; Z91.19 Patient's noncompliance with other medical treatment and regimen
CPT/HCPCS: 36415; 80053; 81025; 85027; 86593; J0735

== ENCOUNTER 2019-08-02 11:40 | Inpatient (IN) | payer OTHER | END 2019-08-15 12:24 | disposition home or self-care (01) | LOC: Y3E 08-04 11:29 → YASAS 11:40 → Y3E 11:41 ==

== ENCOUNTER 2019-09-11 02:55 | Inpatient (IN) | payer OTHER ==
[2019-09-11] MEDS ORDERED: IBUPROFEN 400 MG TABLET (FP) PO PRN (04:24)
[2019-09-11] MEDS ORDERED: MAG HYDROX/AL HYDROX/SIMETH 30 ML UNIT-DOSE CUP PO PRN (04:24)
[2019-09-11] MEDS ORDERED: NICOTINE POLACRILEX 2 MG GUM BUC PRN (04:24)
[2019-09-11] MEDS ORDERED: MELATONIN 5 MG TABLETS PO PRN (04:24)
[2019-09-11] MEDS ORDERED: ACETAMINOPHEN 325 MG TABLET (FP) PO PRN ×2 (04:24)
[2019-09-11] MEDS ORDERED: METHADONE HCL 10 MG TABLET (FOR DETOX USE ONLY) PO ONE (04:24)
[2019-09-11] MEDS ORDERED: BISMUTH SUBSALICYLATE 524 MG/30 ML UD PO PRN (04:24)
[2019-09-11] MEDS ORDERED: cloNIDine HCL 0.1 MG TABLET PO PRN (04:24)
[2019-09-11] MEDS ORDERED: MAGNESIUM CITRATE 300 ML BOTTLE PO PRN (04:24)
[2019-09-11] MEDS ORDERED: MAGNESIUM HYDROX 2400MG/30ML ORAL SUSPENSION 30 ML CUP PO PRN (04:24)
[2019-09-11] MEDS ORDERED: MENTHOL/PHENOL 1 EACH UD MM PRN (04:24)
--- NOTE | 2019-09-11 06:49 | HP ---
CIWA Score - Admission Criteria OASAS Guidelines: Admission for Medically Managed Detox: Requires at least one of the followin. CIWA greater than 12 2. Seizures within the past 24 hours 3. Delirium tremens within the past 24 hours 4. Hallucinations within the past 24 hours 5. Acute intervention needed for co occurring medical disorder 6. Acute intervention needed for co occurring psychiatric disorder 7. Severe withdrawal that cannot be handled at a lower level of care (continued vomiting, continued diarrhea, abnormal vital signs) requiring intravenous medication and/or fluids 8. Admitting History and Physical - Past Medical History ...LMP: 04/01/19 - Smoking History Smoking history: Current every day smoker Have you smoked in the past 12 months: Yes Aproximately how many cigarettes per day: 20 - Alcohol/Substance Use Hx Alcohol Use: No Admission ROS S - HPI Allergies/Adverse Reactions: Allergies Allergy/AdvReac Type Severity Reaction Status Date / Time chlordiazepoxide Allergy Severe Difficulty Verified 08/04/19 16:11 [From Librium] Breathing librium Allergy Severe Difficulty Uncoded 07/28/19 18:06 Breathing Patient History - Patient Medical History Hx Anemia: Yes (no med) Hx Asthma: Yes (on albuterol inhaler) Hx Chronic Obstructive Pulmonary Disease (COPD): No Hx Cancer: Yes (cervical ca follow up with own renal technician) Hx Cardiac Disorders: No Hx Congestive Heart Failure: No Hx Hypertension: Yes (non compliance) Hx Hypercholesterolemia: No Hx Pacemaker: No HX Cerebrovascular Accident: No Hx Seizures: No Hx Dementia: No Hx Diabetes: No Hx Gastrointestinal Disorders: Yes (GERD) Hx Liver Disease: No Hx Genitourinary Disorders: No Hx Sexually Transmitted Disorders: No Hx Renal Disease (ESRD): No Hx Thyroid Disease: No Hx Human Immunodeficiency Virus (HIV): No (NEGATIVE HX last 02/15) Hx Hepatitis C: No Hx Depression: Yes (on med) Hx Suicide Attempt: No Hx Bipolar Disorder: No Hx Schizophrenia: No - Patient Surgical History Past Surgical History: Yes Hx Neurologic Surgery: No Hx Cataract Extraction: No Hx Cardiac Surgery: No Hx Lung Surgery: No Hx Breast Surgery: No Hx Breast Biopsy: No Hx Abdominal Surgery: No Hx Appendectomy: No Hx Cholecystectomy: Yes (lap in 2006) Hx Genitourinary Surgery: Yes (carcinoma in situ s/p conization in 2013) Hx Section: No Hx Orthopedic Surgery: No Other Surgical History: Pt had a culposcopy. Anesthesia Reaction: No - PPD History Previous Implant?: Yes Documented Results: Negative w/o proof Implanted On Prior [facility] Admission?: Yes Date: 10/08/18 Results: 0mm - Reproductive History Last Menstrual Period: 04/01/19 - Smoking Cessation Smoking history: Current every day smoker Have you smoked in the past 12 months: Yes Aproximately how many cigarettes per day: 20 Cigars Per Day: 0 Hx Chewing Tobacco Use: No - Substances abused Heroin Substance route: Inhalation Frequency: Daily Amount used: 9 bags Age of first use: 30 Date of last use: 07/28/19 Cocaine Substance route: Smoking Frequency: Daily Amount used: 25 bags Age of first use: 30 Date of last use: 07/28/19 Alcohol Substance route: Oral Frequency: 1-3 times last 30 days Amount used: 2 beers Age of first use: 47 Date of last use: 03/05/19 Marijuana/Hashish Substance route: Smoking Frequency: 1-2 times per week Amount used: 5$ Age of first use: 13 Date of last use: 07/28/19 Alprazolam (Xanax) Substance route: Oral Frequency: 1-3 times last 30 days Amount used: 2mgs Age of first use: 48 Date of last use: 03/06/19 Other Other (specify): klonopin Substance route: Oral Frequency: Daily Amount used: 1mg Age of first use: 48 Date of last use: 05/30/19 Admission Physical Exam BHS - Vital Signs Vital Signs: Vital Signs - 24 hr 09/11/19 05:27 Temperature 97.1 F L Pulse Rate 93 H Respiratory 18 Rate Blood Pressure 128/80 Breathalyzer - Breathalyzer Breathalyzer: 0 POC Urine test - Test device test lot number: [id number] Expiration date: 07/30/20 - Control test control: Yes Urine Drug Screen - Test Device Lot number: [id number] Expiration date: 04/28/19 - Control Is test valid?: Yes - Results Drug screen NEGATIVE: No Urine drug screen results: THC-Marijuana, CLINTON-Cocaine, FEN-Fentanyl, MOP-Opiates , OXY-Oxycodone, BUP-Suboxone
[2019-09-11] MEDS ORDERED: TRIMETHOBENZAMIDE HCL 200MG/2ML INJ IM ONE (11:02)
[2019-09-11] MEDS: PRENATAL VITAMINS W/ FOLIC ACID TABLET (FP) PO SCH (11:33)
[2019-09-11] MEDS: NICOTINE 21 MG/24 HOURS TOPICAL PATCH TD SCH (11:33)
--- NOTE | 2019-09-11 15:18 | CONSULT ---
[facility] Psychiatric Consult - Data Date of interview: 09/11/19 Admission source: [facility] Identifying data: Chemist Helper approached patient twice for psychiatric consultation but patient refused. Stated to personal lines underwriter, " I don't feel well. Maybe tomorrow. I don't want to talk today." Nursing staff informed
--- NOTE | 2019-09-11 16:22 | PN ---
BHS COWS - Scale Resting Pulse: 1= [place] 81-100 Sweatin= Chills/Flushing Restless Observation: 3= Extraneous Movement Pupil Size: 0= Normal to Room Light Bone or Joint Aches: 2= Severe Diffuse Aches Runny Nose/ Eye Tearin= Runny Nose/Eyes GI Upset > 30mins: 3= Vomiting/Diarrhea Tremor Observation of Outstretched Hands: 2= Slight Tremor Visible Yawning Observation: 0= None Anxiety or Irritability: 2=Irritable/Anxious Goose Flesh Skin: 0=Smooth Skin COWS Score: 16 BHS Progress Note (SOAP) Subjective: N/V, stomachache. Patient stated vomiting is frequent and she would prefer to get IM injection to stop it. Objective: 09/11/19 16:18 Last Vital Signs Temp Pulse Resp BP Pulse Ox 99.0 F 89 18 159/83 09/11/19 13:22 09/11/19 13:22 09/11/19 13:22 09/11/19 13:22 Elevated b/p: denies htn, on clonidine prn No admission labs available Assessment: 09/11/19 16:19 Withdrawal sxs Patient c/o N/V Plan: Continue detox Encourage PO water hydration N/V: Tigan 200mg IM x 1 then q8hr prn, repeat BMP in AM (has CMP ordered for tomorrow)
[2019-09-11] MEDS ORDERED: TRIMETHOBENZAMIDE HCL 200MG/2ML INJ IM PRN (20:00)
[2019-09-11] MEDS: THIAMINE HCL 100 MG TABLET (FP) PO SCH (22:39)
[2019-09-12] MEDS ORDERED: METHADONE HCL 5 MG TABLET (FOR DETOX USE ONLY) ONE (04:46)
[2019-09-12] MEDS ORDERED: METHADONE HCL 10 MG TABLET (FOR DETOX USE ONLY) ONE (04:47)
[2019-09-12] MEDS ORDERED: METHADONE (DETOX) 20 MG, METHADONE (DETOX) 5 MG PO ONE (06:00)
[2019-09-12] MEDS: ONDANSETRON *ODT* 4 MG TABLET SL PRN ×2 (09:25→15:17)
[2019-09-12 10:06] LABS: HEMATOCRIT 41.3 % (32.4-45.2); HEMOGLOBIN 13.9 GM/dL (10.7-15.3); MCH 28.8 pg (25.7-33.7); MCHC 33.6 g/dl (32.0-36.0); MEAN CELL VOLUME 85.5 fl (80-96); MEAN PLT VOLUME 9.2 fl (7.5-11.1); PLATELET COUNT 325 K/MM3 (134-434); RBC 4.83 M/mm3 (3.60-5.2); RDW 13.8 % (11.6-15.6); WHITE BLOOD COUNT 10.2 K/mm3 (4.0-10.0)
[2019-09-12 10:14] LABS: ALBUMIN 3.6 g/dl (3.4-5.0); BILIRUBIN,TOTAL 0.4 mg/dL (0.2-1); BLOOD UREA NITROGEN 12.5 mg/dL (7-18); CALCIUM 9.1 mg/dL (8.5-10.1); CREATININE 0.7 mg/dL (0.55-1.3); POTASSIUM 3.4 mmol/L (3.5-5.1); TOT PROT 7.2 g/dl (6.4-8.2)
[2019-09-12] MEDS: NICOTINE 21 MG/24 HOURS TOPICAL PATCH TD SCH (10:20)
[2019-09-12] MEDS: PRENATAL VITAMINS W/ FOLIC ACID TABLET (FP) PO SCH (10:21)
[2019-09-12] MEDS: DICYCLOMINE HCL 10 MG CAPSULE PO PRN ×2 (10:24→16:59)
--- NOTE | 2019-09-12 12:58 | EKG ---
Test Reason : Blood Pressure : / mmHG Vent. Rate : 079 BPM Atrial Rate : 079 BPM P-R Int : 140 ms QRS Dur : 098 ms QT Int : 422 ms P-R-T Axes : 061 041 039 degrees QTc Int : 483 ms NORMAL SINUS RHYTHM POSSIBLE LEFT ATRIAL ENLARGEMENT LEFT VENTRICULAR HYPERTROPHY PROLONGED QT ABNORMAL ECG WHEN COMPARED WITH ECG OF 06-OCT-2018 12:34, NO SIGNIFICANT CHANGE WAS FOUND Confirmed by JUSTIN MOTLEY, TONY ([id number]) on 09/12/2019 12:57:44 PM Referred By: Wayne Villalba Confirmed By:TONY ANDERSON MD
[2019-09-12] MEDS ORDERED: NICOTINE POLACRILEX 4 MG GUM BUC PRN (13:52)
--- NOTE | 2019-09-12 13:54 | PN ---
BHS COWS - Scale Resting Pulse: 1= [place] 81-100 Sweatin= Chills/Flushing Restless Observation: 1= Difficult to Sit Still Pupil Size: 0= Normal to Room Light Bone or Joint Aches: 2= Severe Diffuse Aches Runny Nose/ Eye Tearin= Runny Nose/Eyes GI Upset > 30mins: 2= Nausea/Diarrhea Tremor Observation of Outstretched Hands: 2= Slight Tremor Visible Yawning Observation: 2= >3x During Session Anxiety or Irritability: 2=Irritable/Anxious Goose Flesh Skin: 3=Piloerection COWS Score: 18 BHS Progress Note (SOAP) Subjective: nausea stomach cramping sweats body aches chills interrupted sleep agitation Objective: 09/12/19 13:53 Vital Signs Temperature 99.0 F 09/12/19 07:18 Pulse Rate 97 H 09/12/19 07:18 Respiratory Rate 20 09/12/19 07:18 Blood Pressure 145/60 09/12/19 07:18 O2 Sat by Pulse Oximetry (%) Laboratory Tests 09/12/19 09/12/19 09/12/19 08:00 08:00 08:00 WBC 10.2 H RBC 4.83 Hgb 13.9 Hct 41.3 MCV 85.5 MCH 28.8 MCHC 33.6 RDW 13.8 Plt Count 325 D MPV 9.2 Sodium 134 L Potassium 3.4 L Chloride 97 L Carbon Dioxide 29 Anion Gap 9 BUN 12.5 Creatinine 0.7 Est GFR (CKD-EPI)AfAm 116.27 Est GFR (CKD-EPI)NonAf 100.32 Random Glucose 120 H Calcium 9.1 Total Bilirubin 0.4 AST 7 L ALT 12 L Alkaline Phosphatase 116 Total Protein 7.2 Albumin 3.6 RPR Titer Nonreactive labs noted aaox3 ambulating no acute distress low potassium 3.4 Assessment: 09/12/19 13:54 withdrawal sx Plan: continue detox increase fluids kdur 40meq x one lidocaine patch motrin 800mg tid/prn bently 10mg prn
--- NOTE | 2019-09-12 14:34 | HP ---
COWS - Scale Resting Pulse: 1= [place] 81-100 Sweatin= Chills/Flushing Restless Observation: 1= Difficult to Sit Still Pupil Size: 0= Normal to Room Light Bone or Joint Aches: 2= Severe Diffuse Aches Runny Nose/ Eye Tearin= Runny Nose/Eyes GI Upset > 30mins: 2= Nausea/Diarrhea Tremor Observation: 2= Slight Tremor Visible Yawning Observation: 2= >3x During Session Anxiety or Irritability: 2=Irritable/Anxious Goose Flesh Skin: 3=Piloerection COWS Score: 18 CIWA Score - Admission Criteria OASAS Guidelines: Admission for Medically Managed Detox: Requires at least one of the followin. CIWA greater than 12 2. Seizures within the past 24 hours 3. Delirium tremens within the past 24 hours 4. Hallucinations within the past 24 hours 5. Acute intervention needed for co occurring medical disorder 6. Acute intervention needed for co occurring psychiatric disorder 7. Severe withdrawal that cannot be handled at a lower level of care (continued vomiting, continued diarrhea, abnormal vital signs) requiring intravenous medication and/or fluids 8. Admitting History and Physical - Admission Chief Complaint: I am here for detox History of Present Illness: Pt is a 49yrold female with chronic alcohol and opoioid History Source: Patient Limitations to Obtaining History: No Limitations - Past Medical History Pulmonary: Yes: Asthma ...LMP: 04/01/19 Heme/Onc: Yes: Anemia Psych: Yes: Depression Musculoskeletal: Yes: Chronic low back pain - Past Surgical History Past Surgical History: Yes: None - Smoking History Smoking history: Current every day smoker Have you smoked in the past 12 months: Yes Aproximately how many cigarettes per day: 20 - Alcohol/Substance Use Hx Alcohol Use: No History of Substance Use: reports: Heroin Date of Last Use: 09/11/19 - Social History Usual Living Arrangement: Yes: Alone History of Recent Travel: No Admission ROS [facility] - [facility] Chief Complaint: I am here for detox. Allergies/Adverse Reactions: Allergies Allergy/AdvReac Type Severity Reaction Status Date / Time chlordiazepoxide Allergy Severe Difficulty Verified 08/04/19 16:11 [From Librium] Breathing librium Allergy Severe Difficulty Uncoded 07/28/19 18:06 Breathing History of Present Illness: pt is a 49yr old female with a history of opioids dependence seeking detox for treatment. Exam Limitations: No Limitations - Ebola screening Have you traveled outside of the country in the last 21 days: No Have you had contact with anyone from an Ebola affected area: No Have you been sick,other than usual withdrawal symptoms: No Do you have a fever: No - Review of Systems Constitutional: Chills, Diaphoresis, Loss of Appetite, Night Sweats, Changes in sleep EENT: reports: Nose Congestion Respiratory: reports: No Symptoms reported Cardiac: reports: No Symptoms Reported GI: reports: Poor Appetite, Poor Fluid Intake : reports: No Symptoms Reported Musculoskeletal: reports: Back Pain, Muscle Pain Integumentary: reports: Flushing, Sweating Neuro: reports: Headache, Tingling, Tremors Endocrine: reports: Excessive Sweating, Flushing, Intolerance to Cold, Intolerance to Heat Hematology: reports: No Symptoms Reported, Anemia Psychiatric: reports: Judgement Intact, Mood/Affect Appropiate, Orientated x3, Agitated, Anxious Other Systems: Reviewed and Negative Patient History - Patient Medical History Hx Anemia: Yes (no med) Hx Asthma: Yes (on albuterol inhaler) Hx Chronic Obstructive Pulmonary Disease (COPD): No Hx Cancer: Yes (cervical ca follow up with own sound printer) Hx Cardiac Disorders: No Hx Congestive Heart Failure: No Hx Hypertension: Yes (non compliance) Hx Hypercholesterolemia: No Hx Pacemaker: No HX Cerebrovascular Accident: No Hx Seizures: No Hx Dementia: No Hx Diabetes: No Hx Gastrointestinal Disorders: Yes (GERD) Hx Liver Disease: No Hx Genitourinary Disorders: No Hx Sexually Transmitted Disorders: No Hx Renal Disease (ESRD): No Hx Thyroid Disease: No Hx Human Immunodeficiency Virus (HIV): No (NEGATIVE HX last 02/15) Hx Hepatitis C: No Hx Depression: Yes (on med) Hx Suicide Attempt: No Hx Bipolar Disorder: No Hx Schizophrenia: No - Patient Surgical History Past Surgical History: Yes Hx Neurologic Surgery: No Hx Cataract Extraction: No Hx Cardiac Surgery: No Hx Lung Surgery: No Hx Breast Surgery: No Hx Breast Biopsy: No Hx Abdominal Surgery: No Hx Appendectomy: No Hx Cholecystectomy: Yes (lap in 2006) Hx Genitourinary Surgery: Yes (carcinoma in situ s/p conization in 2013) Hx Section: No Hx Orthopedic Surgery: No Other Surgical History: Pt had a culposcopy. Anesthesia Reaction: No - PPD History Previous Implant?: Yes Documented Results: Negative w/o proof Implanted On Prior R Admission?: Yes Date: 10/08/18 Results: 0mm PPD to be Administered?: No - Reproductive History Patient is a Female of Child Bearing Age (11 -55 yrs old): No Last Menstrual Period: 04/01/19 Patient : No - Smoking Cessation Smoking history: Current every day smoker Have you smoked in the past 12 months: Yes Aproximately how many cigarettes per day: 20 Cigars Per Day: 0 Hx Chewing Tobacco Use: No Initiated information on smoking cessation: Yes 'Breaking Loose' booklet given: 09/12/19 - Substance & Tx. History Hx Alcohol Use: No Hx Substance Use: Yes Substance Use Type: Heroin Hx Substance Use Treatment: Yes (last detox 07/2019) - Substances abused Heroin Substance route: Inhalation Frequency: Daily Amount used: 9 bags Age of first use: 30 Date of last use: 09/11/19 Cocaine Substance route: Smoking Frequency: Daily Amount used: 25 bags Age of first use: 30 Date of last use: 09/11/19 Alcohol Substance route: Oral Frequency: 1-3 times last 30 days Amount used: 2 beers Age of first use: 47 Date of last use: 03/05/19 Marijuana/Hashish Substance route: Smoking Frequency: 1-2 times per week Amount used: 5$ Age of first use: 13 Date of last use: 07/28/19 Alprazolam (Xanax) Substance route: Oral Frequency: 1-3 times last 30 days Amount used: 2mgs Age of first use: 48 Date of last use: 03/06/19 Other Other (specify): klonopin Substance route: Oral Frequency: Daily Amount used: 1mg Age of first use: 48 Date of last use: 05/30/19 Admission Physical Exam BHS - Vital Signs Vital Signs: Vital Signs - 24 hr 09/11/19 09/11/19 09/12/19 17:50 22:00 00:30 Temperature 99.0 F 97.9 F Pulse Rate 80 94 H Respiratory 18 18 18 Rate Blood Pressure 153/70 106/50 L 09/12/19 09/12/19 03:30 07:18 Temperature 99.0 F Pulse Rate 97 H Respiratory 18 20 Rate Blood Pressure 145/60 - Physical General Appearance: Yes: Mild Distress, Tremorous, Irritable, Sweating, Anxious HEENTM: Yes: Normocephalic, Nasal Congestion Respiratory: Yes: Lungs Clear, Normal Breath Sounds, No Respiratory Distress Neck: Yes: No masses,lesions,Nodules Breast: Yes: Within Normal Limits Cardiology: Yes: Regular Rhythm, Regular Rate, S1, S2 Abdominal: Yes: Normal Bowel Sounds, Non Tender, Soft Genitourinary: Yes: Within Normal Limits Back: Yes: Normal Inspection Musculoskeletal: Yes: Back pain Extremities: Yes: Normal Capillary Refill, Normal Inspection, Non-Tender, Tremors Neurological: Yes: Fully Oriented, Alert, Normal Response Integumentary: Yes: Normal Color, Diaphoresis Lymphatic: Yes: Within Normal Limits - Diagnostic (1) Depression Current Visit: Yes Status: Acute (2) Opioid dependence with withdrawal Current Visit: Yes Status: Chronic (3) Substance-induced sleep disorder Current Visit: No Status: Acute (4) Anemia Current Visit: Yes Status: Chronic Qualifiers: Anemia type: iron deficiency (5) Cannabis dependence Current Visit: Yes Status: Chronic (6) Cocaine dependence Current Visit: Yes Status: Chronic Qualifiers: Substance use status: uncomplicated Qualified Code(s): F14.20 - Cocaine dependence, uncomplicated (7) GERD (gastroesophageal reflux disease) Current Visit: Yes Status: Chronic Qualifiers: Esophagitis presence: without esophagitis Qualified Code(s): K21.9 - Gastro -esophageal reflux disease without esophagitis (8) HTN (hypertension) Current Visit: Yes Status: Chronic Qualifiers: Hypertension type: essential hypertension Qualified Code(s): I10 - Essential (primary) hypertension (9) History of bipolar disorder Current Visit: No Status: Chronic (10) Insomnia Current Visit: No Status: Chronic Qualifiers: Insomnia type: unspecified Qualified Code(s): G47.00 - Insomnia, unspecified (11) Low back pain Current Visit: Yes Status: Chronic Qualifiers: Chronicity: unspecified (12) Mood disorder Current Visit: No Status: Chronic (13) Nicotine dependence Current Visit: Yes Status: Chronic Qualifiers: Nicotine product type: cigarettes Substance use status: uncomplicated Qualified Code(s): F17.210 - Nicotine dependence, cigarettes, uncomplicated (14) Non-compliance Current Visit: No Status: Chronic (15) Osteoarthritis of both knees Current Visit: No Status: Chronic Qualifiers: Osteoarthritis type: unspecified Qualified Code(s): M17.0 - Bilateral primary osteoarthritis of knee (16) Sciatica Current Visit: Yes Status: Chronic Qualifiers: Laterality: unspecified laterality Qualified Code(s): M54.30 - Sciatica, unspecified side (17) Substance induced mood disorder Current Visit: No Status: Chronic (18) Substance induced mood disorder Current Visit: No Status: Chronic (19) Substance or medication-induced sleep disorder, insomnia type Current Visit: No Status: Chronic (20) Carcinoma uterine cervix in situ Current Visit: No Status: Resolved Qualifiers: Carcinoma in situ of uterine cervix location: unspecified part of cervix Qualified Code(s): D06.9 - Carcinoma in situ of cervix, unspecified Cleared for Admission S - Detox or Rehab [facility] Level of Care: Medically Managed Detox Regimen/Protocol: Methadone Claeared for Rehab Admission: No Breathalyzer - Breathalyzer Breathalyzer: 0 POC Urine test - Test device test lot number: [id number] Expiration date: 07/30/20 - Control test control: Yes Urine Drug Screen - Test Device Lot number: [id number] Expiration date: 04/28/19 - Control Is test valid?: Yes - Results Drug screen NEGATIVE: No Urine drug screen results: THC-Marijuana, CLINTON-Cocaine, FEN-Fentanyl, MOP-Opiates , OXY-Oxycodone, BUP-Suboxone Inpatient Rehab Admission - Rehab Decision to Admit Inpatient rehab admission?: No
[2019-09-12] MEDS ORDERED: LIDOCAINE 5% TOPICAL PATCH TP ONE (14:35)
[2019-09-12] MEDS ORDERED: SIMETHICONE 80 MG TAB.CHEW (FP) PO PRN (15:08)
[2019-09-12] MEDS ORDERED: ALBUTEROL SO4 8 GM HFA INHALER IH PRN (15:09)
[2019-09-12] MEDS: POTASSIUM CHLORIDE ORAL LIQUID 20 MEQ/15 ML PO ONE ×2 (15:18→15:27)
[2019-09-12] MEDS: PANTOPRAZOLE 40 MG TABLET (FP) PO SCH (15:38)
[2019-09-12] MEDS: diazePAM 5 MG TABLET PO PRN ×2 (15:55→22:29)
[2019-09-12] MEDS: hydrOXYzine PAMOATE 25 MG CAPSULE (FP) PO PRN (16:59)
[2019-09-12] MEDS: GABAPENTIN 100 MG CAPSULE (FP) PO SCH (22:29)
[2019-09-12] MEDS: LIDOCAINE PATCH REMOVAL MC SCH (22:42)
[2019-09-12] MEDS: THIAMINE HCL 100 MG TABLET (FP) PO SCH (22:42)
[2019-09-13] MEDS ORDERED: METHADONE HCL 10 MG TABLET (FOR DETOX USE ONLY) PO ONE (06:00)
[2019-09-13] MEDS: GABAPENTIN 100 MG CAPSULE (FP) PO SCH ×3 (06:04→22:08)
[2019-09-13] MEDS: diazePAM 5 MG TABLET PO PRN ×3 (06:07→22:09)
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
[2019-09-13] MEDS: NICOTINE 21 MG/24 HOURS TOPICAL PATCH TD SCH (10:23)
[2019-09-13] MEDS: PRENATAL VITAMINS W/ FOLIC ACID TABLET (FP) PO SCH (10:24)
[2019-09-13] MEDS: LIDOCAINE 5% TOPICAL PATCH TP SCH (10:24)
[2019-09-13] MEDS: PANTOPRAZOLE 40 MG TABLET (FP) PO SCH (10:24)
[2019-09-13] MEDS: QUEtiapine FUMARATE 50 MG TABLET PO SCH (10:26)
[2019-09-13] MEDS: ONDANSETRON *ODT* 4 MG TABLET SL PRN (10:28)
--- NOTE | 2019-09-13 11:18 | PN ---
BHS COWS - Scale Resting Pulse: 1= [place] 81-100 Sweatin= Chills/Flushing Restless Observation: 1= Difficult to Sit Still Pupil Size: 0= Normal to Room Light Bone or Joint Aches: 1= Mild Discomfort Runny Nose/ Eye Tearin= Runny Nose/Eyes GI Upset > 30mins: 0= None Tremor Observation of Outstretched Hands: 1= Tremor [place], Not Seen Yawning Observation: 1= 1-2x During Session Anxiety or Irritability: 2=Irritable/Anxious Goose Flesh Skin: 0=Smooth Skin COWS Score: 10 BHS Progress Note (SOAP) Subjective: sweats shakes interrupted sleep body aches poor appetite Objective: 09/13/19 11:16 Vital Signs Temperature 98.1 F 09/13/19 09:25 Pulse Rate 97 H 09/13/19 09:25 Respiratory Rate 18 09/13/19 09:25 Blood Pressure 155/95 09/13/19 09:25 O2 Sat by Pulse Oximetry (%) Laboratory Tests 09/12/19 09/12/19 09/12/19 08:00 08:00 08:00 WBC 10.2 H RBC 4.83 Hgb 13.9 Hct 41.3 MCV 85.5 MCH 28.8 MCHC 33.6 RDW 13.8 Plt Count 325 D MPV 9.2 Sodium 134 L Potassium 3.4 L Chloride 97 L Carbon Dioxide 29 Anion Gap 9 BUN 12.5 Creatinine 0.7 Est GFR (CKD-EPI)AfAm 116.27 Est GFR (CKD-EPI)NonAf 100.32 Random Glucose 120 H Calcium 9.1 Total Bilirubin 0.4 AST 7 L ALT 12 L Alkaline Phosphatase 116 Total Protein 7.2 Albumin 3.6 RPR Titer Nonreactive labs noted pt was ordered kdur 40meq x 4 days aaox3 ambulating no acute distress Assessment: 09/13/19 11:17 withdrawal sx Plan: continue detox increase fluids ensure plus 120ml po bid
[2019-09-13] MEDS: QUEtiapine FUMARATE 100 MG TABLET (FP) PO SCH (22:08)
[2019-09-13] MEDS: IBUPROFEN 400 MG TABLET (FP) PO PRN (22:10)
[2019-09-13] MEDS: THIAMINE HCL 100 MG TABLET (FP) PO SCH (22:27)
[2019-09-13] MEDS: LIDOCAINE PATCH REMOVAL MC SCH (22:27)
[2019-09-14] MEDS ORDERED: METHADONE HCL 10 MG TABLET (FOR DETOX USE ONLY) ONE (05:03)
[2019-09-14] MEDS ORDERED: METHADONE HCL 5 MG TABLET (FOR DETOX USE ONLY) ONE (05:03)
[2019-09-14] MEDS ORDERED: METHADONE (DETOX) 10 MG, METHADONE (DETOX) 5 MG PO ONE (06:00)
[2019-09-14] MEDS: IBUPROFEN 400 MG TABLET (FP) PO PRN ×2 (06:33→16:33)
[2019-09-14] MEDS: GABAPENTIN 100 MG CAPSULE (FP) PO SCH ×3 (06:35→22:09)
[2019-09-14] MEDS: diazePAM 5 MG TABLET PO PRN ×2 (06:35→16:32)
[2019-09-14] MEDS: LIDOCAINE 5% TOPICAL PATCH TP SCH (10:03)
[2019-09-14] MEDS: NICOTINE 21 MG/24 HOURS TOPICAL PATCH TD SCH (10:03)
[2019-09-14] MEDS: QUEtiapine FUMARATE 50 MG TABLET PO SCH (10:03)
[2019-09-14] MEDS: PANTOPRAZOLE 40 MG TABLET (FP) PO SCH (10:03)
[2019-09-14] MEDS: PRENATAL VITAMINS W/ FOLIC ACID TABLET (FP) PO SCH (10:03)
[2019-09-14] MEDS: hydrOXYzine PAMOATE 25 MG CAPSULE (FP) PO PRN ×2 (10:04→22:12)
--- NOTE | 2019-09-14 12:31 | PN ---
BHS COWS - Scale Resting Pulse: 2= [place] 101-120 Sweatin= Chills/Flushing Restless Observation: 1= Difficult to Sit Still Pupil Size: 0= Normal to Room Light Bone or Joint Aches: 1= Mild Discomfort Runny Nose/ Eye Tearin= Nasal Congestion GI Upset > 30mins: 0= None Tremor Observation of Outstretched Hands: 1= Tremor [place], Not Seen Yawning Observation: 1= 1-2x During Session Anxiety or Irritability: 1=Feels Anxious/Irritable Goose Flesh Skin: 0=Smooth Skin COWS Score: 9 BHS Progress Note (SOAP) Subjective: anxiety sweats mild shakes Objective: 09/14/19 12:31 Vital Signs Temperature 97.2 F L 09/14/19 10:06 Pulse Rate 102 H 09/14/19 10:06 Respiratory Rate 18 09/14/19 10:06 Blood Pressure 107/59 L 09/14/19 10:06 O2 Sat by Pulse Oximetry (%) Laboratory Tests 09/12/19 09/12/19 09/12/19 08:00 08:00 08:00 WBC 10.2 H RBC 4.83 Hgb 13.9 Hct 41.3 MCV 85.5 MCH 28.8 MCHC 33.6 RDW 13.8 Plt Count 325 D MPV 9.2 Sodium 134 L Potassium 3.4 L Chloride 97 L Carbon Dioxide 29 Anion Gap 9 BUN 12.5 Creatinine 0.7 Est GFR (CKD-EPI)AfAm 116.27 Est GFR (CKD-EPI)NonAf 100.32 Random Glucose 120 H Calcium 9.1 Total Bilirubin 0.4 AST 7 L ALT 12 L Alkaline Phosphatase 116 Total Protein 7.2 Albumin 3.6 RPR Titer Nonreactive labs noted kdur 20meq x one aaox3 ambulating no acute distress Assessment: 09/14/19 12:33 withdrawals sx Plan: continue detox increase fluids kdur 20meq x one repeat labs
[2019-09-14] MEDS ORDERED: POTASSIUM CHLORIDE TABS 20 MEQ TABLET.ER (FP) PO ONE (12:34)
[2019-09-14] MEDS: QUEtiapine FUMARATE 100 MG TABLET (FP) PO SCH (22:09)
[2019-09-14] MEDS: METHOCARBAMOL 500 MG TABLET PO PRN (22:09)
[2019-09-14] MEDS: THIAMINE HCL 100 MG TABLET (FP) PO SCH (22:09)
[2019-09-14] MEDS: LIDOCAINE PATCH REMOVAL MC SCH (22:27)
[2019-09-15] MEDS: diazePAM 5 MG TABLET PO PRN ×2 (00:11→09:21)
[2019-09-15] MEDS ORDERED: METHADONE HCL 10 MG TABLET (FOR DETOX USE ONLY) PO ONE (06:00)
[2019-09-15] MEDS: GABAPENTIN 100 MG CAPSULE (FP) PO SCH ×3 (06:21→22:06)
[2019-09-15] MEDS: IBUPROFEN 400 MG TABLET (FP) PO PRN ×2 (06:23→22:09)
[2019-09-15] MEDS: LIDOCAINE 5% TOPICAL PATCH TP SCH (09:20)
[2019-09-15] MEDS: PRENATAL VITAMINS W/ FOLIC ACID TABLET (FP) PO SCH (09:21)
[2019-09-15] MEDS: PANTOPRAZOLE 40 MG TABLET (FP) PO SCH (09:21)
[2019-09-15] MEDS: QUEtiapine FUMARATE 50 MG TABLET PO SCH (09:21)
[2019-09-15] MEDS: NICOTINE 21 MG/24 HOURS TOPICAL PATCH TD SCH (09:21)
--- NOTE | 2019-09-15 11:14 | PN ---
BHS COWS - Scale Resting Pulse: 1= [place] 81-100 Sweatin= Chills/Flushing Restless Observation: 1= Difficult to Sit Still Pupil Size: 0= Normal to Room Light Bone or Joint Aches: 1= Mild Discomfort Runny Nose/ Eye Tearin= None GI Upset > 30mins: 0= None Tremor Observation of Outstretched Hands: 0= None Yawning Observation: 0= None Anxiety or Irritability: 1=Feels Anxious/Irritable Goose Flesh Skin: 0=Smooth Skin COWS Score: 5 BHS Progress Note (SOAP) Subjective: anxiety restless Objective: 09/15/19 11:13 Vital Signs Temperature 97.5 F L 09/15/19 09:58 Pulse Rate 94 H 09/15/19 09:58 Respiratory Rate 18 09/15/19 09:58 Blood Pressure 122/68 09/15/19 09:58 O2 Sat by Pulse Oximetry (%) aaox3 ambulating no acute distress Assessment: 09/15/19 11:14 mild withdrawals Plan: continue detox d/c in am
[2019-09-15] MEDS: hydrOXYzine PAMOATE 25 MG CAPSULE (FP) PO PRN ×2 (14:14→22:06)
[2019-09-15] MEDS: QUEtiapine FUMARATE 100 MG TABLET (FP) PO SCH (22:06)
[2019-09-15] MEDS: LIDOCAINE PATCH REMOVAL MC SCH (23:16)
[2019-09-15] MEDS: THIAMINE HCL 100 MG TABLET (FP) PO SCH (23:16)
[2019-09-16] MEDS ORDERED: METHADONE HCL 5 MG TABLET (FOR DETOX USE ONLY) PO ONE (06:00)
[2019-09-16] MEDS: hydrOXYzine PAMOATE 25 MG CAPSULE (FP) PO PRN (06:03)
[2019-09-16] MEDS: METHOCARBAMOL 500 MG TABLET PO PRN (06:03)
[2019-09-16] MEDS: GABAPENTIN 100 MG CAPSULE (FP) PO SCH (06:04)
[2019-09-16 09:35] VITALS: BP 121/90; PULSE 95; TEMP 97.5
[2019-09-16] MEDS: LIDOCAINE 5% TOPICAL PATCH TP SCH (10:13)
[2019-09-16] MEDS: PRENATAL VITAMINS W/ FOLIC ACID TABLET (FP) PO SCH (10:14)
[2019-09-16] MEDS: NICOTINE 21 MG/24 HOURS TOPICAL PATCH TD SCH (10:15)
[2019-09-16] MEDS: QUEtiapine FUMARATE 50 MG TABLET PO SCH (10:17)
[2019-09-16] MEDS: PANTOPRAZOLE 40 MG TABLET (FP) PO SCH (10:19)
--- NOTE | 2019-09-16 12:28 | DS ---
[facility] Detox Discharge Summary Admission Date: 09/11/19 Discharge Date: 09/16/19 - History Present History: Cannabis Dependence, Cocaine Dependence, Opioid Dependence - Physical Exam Results Vital Signs: Vital Signs Temperature 97.5 F L 09/16/19 09:35 Pulse Rate 95 H 09/16/19 09:35 Respiratory Rate 20 09/16/19 09:35 Blood Pressure 121/90 09/16/19 09:35 O2 Sat by Pulse Oximetry (%) Pertinent Admission Physical Exam Findings: pt arrived in withdrawals Vital Signs Temperature 97.5 F L 09/16/19 09:35 Pulse Rate 95 H 09/16/19 09:35 Respiratory Rate 20 09/16/19 09:35 Blood Pressure 121/90 09/16/19 09:35 O2 Sat by Pulse Oximetry (%) Laboratory Tests 09/12/19 09/12/19 09/12/19 08:00 08:00 08:00 WBC 10.2 H RBC 4.83 Hgb 13.9 Hct 41.3 MCV 85.5 MCH 28.8 MCHC 33.6 RDW 13.8 Plt Count 325 D MPV 9.2 Sodium 134 L Potassium 3.4 L Chloride 97 L Carbon Dioxide 29 Anion Gap 9 BUN 12.5 Creatinine 0.7 Est GFR (CKD-EPI)AfAm 116.27 Est GFR (CKD-EPI)NonAf 100.32 Random Glucose 120 H Calcium 9.1 Total Bilirubin 0.4 AST 7 L ALT 12 L Alkaline Phosphatase 116 Total Protein 7.2 Albumin 3.6 RPR Titer Nonreactive today pt is aaox3 ambulating no acute distress no s/s of withdrawals - Treatment Hospital Course: Detox Protocol Followed, Detoxed Safely, Responded well, Discharged Condition Good, Rehab Referral Accepted Patient has Accepted a Rehab Referral to: pt referred to [facility] inpatient rehab - Medication Discharge Medications: Ambulatory Orders Omeprazole 40 mg PO DAILY 02/27/17 Albuterol Sulfate Inhaler - [Ventolin HFA Inhaler -] 2 inh PO Q4H PRN #1 inhaler 10/10/18 Ibuprofen [Motrin -] 600 mg PO BID PRN 06/14/19 Quetiapine Fumarate [Seroquel -] 50 mg PO DAILY 06/14/19 Buprenorphine/Naloxone [Suboxone 8Mg/2Mg Sl Film -] 1 each SL BID #14 packet MDD 2 08/15/19 Gabapentin [Neurontin] 100 mg PO TID #42 capsule 08/15/19 Quetiapine Fumarate [Seroquel -] 50 mg PO DAILY #30 tablet 08/15/19 Quetiapine Fumarate [Seroquel -] 100 mg PO HS #30 tablet 08/15/19 - Diagnosis (1) Depression Status: Acute (2) Opioid dependence with withdrawal Status: Chronic (3) Substance-induced sleep disorder Status: Acute (4) Anemia Status: Chronic Qualifiers: Anemia type: iron deficiency (5) Cannabis dependence Status: Chronic (6) Cocaine dependence Status: Chronic Qualifiers: Substance use status: uncomplicated Qualified Code(s): F14.20 - Cocaine dependence, uncomplicated (7) GERD (gastroesophageal reflux disease) Status: Chronic Qualifiers: Esophagitis presence: without esophagitis Qualified Code(s): K21.9 - Gastro -esophageal reflux disease without esophagitis (8) HTN (hypertension) Status: Chronic Qualifiers: Hypertension type: essential hypertension Qualified Code(s): I10 - Essential (primary) hypertension (9) History of bipolar disorder Status: Chronic (10) Insomnia Status: Chronic Qualifiers: Insomnia type: unspecified Qualified Code(s): G47.00 - Insomnia, unspecified (11) Low back pain Status: Chronic Qualifiers: Chronicity: unspecified (12) Mood disorder Status: Chronic (13) Nicotine dependence Status: Chronic Qualifiers: Nicotine product type: cigarettes Substance use status: uncomplicated Qualified Code(s): F17.210 - Nicotine dependence, cigarettes, uncomplicated (14) Osteoarthritis of both knees Status: Chronic Qualifiers: Osteoarthritis type: unspecified Qualified Code(s): M17.0 - Bilateral primary osteoarthritis of knee (15) Sciatica Status: Chronic Qualifiers: Laterality: unspecified laterality Qualified Code(s): M54.30 - Sciatica, unspecified side (16) Substance induced mood disorder Status: Chronic (17) Carcinoma uterine cervix in situ Status: Resolved Qualifiers: Carcinoma in situ of uterine cervix location: unspecified part of cervix Qualified Code(s): D06.9 - Carcinoma in situ of cervix, unspecified - AMA Did Patient Leave Against Medical Advice: No
== END 2019-09-16 11:44 | disposition other institution (70) | DRG 773 ==
LOC: Y6N 02:55 → UNDOADMIN 02:55
PROVIDERS: ADMIT Allergy & Immunology; ATTEND Allergy & Immunology
PROC: HZ2ZZZZ Detoxification Services for Substance Abuse Treatment (ICD-10-PCS; principal; 2019-09-11)
DX: F11.23 Opioid dependence with withdrawal (principal); F10.10 Alcohol abuse, uncomplicated; F14.20 Cocaine dependence, uncomplicated; F12.20 Cannabis dependence, uncomplicated; F17.210 Nicotine dependence, cigarettes, uncomplicated; F19.282 Other psychoactive substance dependence with psychoactive substance-induced sleep disorder; F19.24 Other psychoactive substance dependence with psychoactive substance-induced mood disorder; F39 Unspecified mood [affective] disorder; F31.9 Bipolar disorder, unspecified; D50.9 Iron deficiency anemia, unspecified; E87.6 Hypokalemia; I10 Essential (primary) hypertension; J45.909 Unspecified asthma, uncomplicated; K21.9 Gastro-esophageal reflux disease without esophagitis; M54.5 Low back pain; M54.30 Sciatica, unspecified side; M17.0 Bilateral primary osteoarthritis of knee; Z85.41 Personal history of malignant neoplasm of cervix uteri; Z91.19 Patient's noncompliance with other medical treatment and regimen
CPT/HCPCS: 36415; 80053; 85027; 86593; 93005; 93010; Q0162

== ENCOUNTER 2019-09-16 11:56 | Inpatient (IN) | payer OTHER ==
[2019-09-16] MEDS ORDERED: P-EPHED 60MG/TRIPROLIDI 2.5MG TABLET PO PRN (12:29)
[2019-09-16] MEDS ORDERED: guaiFENesin 200 MG/10 ML 10 ML UNIT-DOSE CUPS PO PRN (12:29)
[2019-09-16] MEDS ORDERED: ACETAMINOPHEN 325 MG TABLET (FP) PO PRN (12:29)
[2019-09-16] MEDS ORDERED: MENTHOL/PHENOL 1 EACH UD MM PRN (12:29)
[2019-09-16] MEDS ORDERED: MAGNESIUM CITRATE 300 ML BOTTLE PO PRN (12:29)
[2019-09-16] MEDS ORDERED: NICOTINE POLACRILEX 4 MG GUM BUC PRN (12:29)
[2019-09-16] MEDS ORDERED: MAGNESIUM HYDROX 2400MG/30ML ORAL SUSPENSION 30 ML CUP PO PRN (12:29)
[2019-09-16] MEDS ORDERED: LOPERAMIDE HCL 2 MG CAPSULE PO PRN (12:29)
--- NOTE | 2019-09-16 12:29 | HP ---
[facility] Rehab Assess/Revision - Admission History Admitted to Rehab [facility] - Findings Detox History & Physical reviewed: Yes Concur with findings: Yes Inpatient Rehab Admission - Rehab Decision to Admit Inpatient rehab admission?: Yes - Initial Determination Are CD services needed?: Yes Free of communicable disease: Yes Not in need of hospitalization: Yes - Rehab Admission Criteria Previous failed treatment: Yes Poor recovery environment: Yes Comorbidities: Yes Lacks judgement: Yes Patient is meeting Inpatient Rehab admission criteria:: Yes
[2019-09-16] MEDS ORDERED: ALBUTEROL SO4 8 GM HFA INHALER IH PRN (12:30)
[2019-09-16] MEDS ORDERED: METHOCARBAMOL 500 MG TABLET PO PRN (15:53)
[2019-09-16] MEDS: hydrOXYzine PAMOATE 50 MG CAPSULE (FP) PO PRN (16:32)
[2019-09-16] MEDS: QUEtiapine FUMARATE 100 MG TABLET (FP) PO SCH (21:32)
[2019-09-16] MEDS: THIAMINE HCL 100 MG TABLET (FP) PO SCH (21:32)
[2019-09-16] MEDS: MELATONIN 5 MG TABLETS PO PRN (21:32)
[2019-09-17] MEDS: IBUPROFEN 400 MG TABLET (FP) PO PRN ×2 (06:25→18:42)
[2019-09-17] MEDS: NICOTINE 21 MG/24 HOURS TOPICAL PATCH TD SCH (09:20)
[2019-09-17] MEDS: QUEtiapine FUMARATE 50 MG TABLET PO SCH (09:21)
[2019-09-17] MEDS: PANTOPRAZOLE 40 MG TABLET (FP) PO SCH (09:21)
[2019-09-17] MEDS: PRENATAL VITAMINS W/ FOLIC ACID TABLET (FP) PO SCH (09:21)
[2019-09-17] MEDS: cloNIDine HCL 0.1 MG TABLET PO PRN ×2 (13:05→18:43)
[2019-09-17] MEDS: MAG HYDROX/AL HYDROX/SIMETH 30 ML UNIT-DOSE CUP PO PRN (13:05)
[2019-09-17] MEDS: MELATONIN 5 MG TABLETS PO PRN (21:13)
[2019-09-17] MEDS: THIAMINE HCL 100 MG TABLET (FP) PO SCH (21:13)
[2019-09-17] MEDS: QUEtiapine FUMARATE 100 MG TABLET (FP) PO SCH (21:13)
[2019-09-18] MEDS: IBUPROFEN 400 MG TABLET (FP) PO PRN (05:46)
[2019-09-18 06:59] VITALS: BP 119/54; PULSE 88; TEMP 97.8
[2019-09-18] MEDS: cloNIDine HCL 0.1 MG TABLET PO PRN (07:56)
[2019-09-18] MEDS: QUEtiapine FUMARATE 50 MG TABLET PO SCH (10:03)
[2019-09-18] MEDS: NICOTINE 21 MG/24 HOURS TOPICAL PATCH TD SCH (10:03)
[2019-09-18] MEDS: PRENATAL VITAMINS W/ FOLIC ACID TABLET (FP) PO SCH (10:03)
[2019-09-18] MEDS: PANTOPRAZOLE 40 MG TABLET (FP) PO SCH (10:03)
[2019-09-18] MEDS: hydrOXYzine PAMOATE 50 MG CAPSULE (FP) PO PRN (11:52)
[2019-09-18] MEDS: MAG HYDROX/AL HYDROX/SIMETH 30 ML UNIT-DOSE CUP PO PRN (11:54)
--- NOTE | 2019-09-18 13:01 | DS ---
[facility] Rehab Discharge Summary - [facility] Rehab Discharge Summary Admission Date: 09/16/19 Discharge Date: 09/18/19 - History Present History: Opioid dependence Pertinent Past History: Pt completed detox and came to rehab on 3 days ago. Pt requesting to leave. Pt seen counselor today and d/w pt the importance of being on MAT- Suboxone or Methadone. Pt understands. Pt has been here in the past with multiple admissions and referrals for Suboxone based MAT. Pt has not followed up. Pt has been coming here for admission to detox almost every month for the last several months. - Discharge Physical Exam Vital Signs: Vital Signs Temperature 97.8 F 09/18/19 06:57 Pulse Rate 88 09/18/19 06:57 Respiratory Rate 16 09/18/19 06:57 Blood Pressure 119/54 L 09/18/19 06:57 O2 Sat by Pulse Oximetry (%) - Medication Discharge Medications: Ambulatory Orders Omeprazole 40 mg PO DAILY 02/27/17 Albuterol Sulfate Inhaler - [Ventolin HFA Inhaler -] 2 inh PO Q4H PRN #1 inhaler 10/10/18 Ibuprofen [Motrin -] 800 mg PO BID PRN 06/14/19 Quetiapine Fumarate [Seroquel -] 50 mg PO DAILY 06/14/19 Buprenorphine/Naloxone [Suboxone 8Mg/2Mg Sl Film -] 1 each SL BID #14 packet MDD 2 08/15/19 Gabapentin [Neurontin] 100 mg PO TID #42 capsule 08/15/19 Quetiapine Fumarate [Seroquel -] 100 mg PO HS #30 tablet 08/15/19 - Discharge Instructions Diet, activity, other medical instructions: Diet: Activity: Other medical instructions: - AMA Did Patient Leave Against Medical Advice: No
[2019-09-18] MEDS ORDERED: NALOXONE HCL 0.4 MG/ML VIAL IM PRN (13:02)
== END 2019-09-18 13:05 | disposition home or self-care (01) | DRG 772 ==
LOC: YASAS 11:56 → Y3E 11:58
PROVIDERS: ADMIT Neuromusculoskeletal Medicine & OMM; ATTEND Neuromusculoskeletal Medicine & OMM
PROC: HZ42ZZZ Group Counseling for Substance Abuse Treatment, Cognitive-Behavioral (ICD-10-PCS; principal; 2019-09-16)
DX: F11.20 Opioid dependence, uncomplicated (principal); F14.20 Cocaine dependence, uncomplicated; F12.20 Cannabis dependence, uncomplicated; F17.210 Nicotine dependence, cigarettes, uncomplicated; F31.9 Bipolar disorder, unspecified; F19.282 Other psychoactive substance dependence with psychoactive substance-induced sleep disorder; F19.24 Other psychoactive substance dependence with psychoactive substance-induced mood disorder; I10 Essential (primary) hypertension; K21.9 Gastro-esophageal reflux disease without esophagitis; Z88.8 Allergy status to other drugs, medicaments and biological substances
CPT/HCPCS: J0735

== ENCOUNTER 2019-10-06 22:22 | Inpatient (IN) | payer OTHER ==
[2019-10-06 23:01] VITALS: BMI 27.0
--- NOTE | 2019-10-06 23:14 | HP ---
COWS - Scale Resting Pulse: 0= [place] 80 or Below Sweatin= Chills/Flushing Restless Observation: 1= Difficult to Sit Still Pupil Size: 0= Normal to Room Light Bone or Joint Aches: 4=Acute Joint/Muscle Pain Runny Nose/ Eye Tearin= Runny Nose/Eyes GI Upset > 30mins: 1= Stomach Cramp Tremor Observation: 2= Slight Tremor Visible Yawning Observation: 0= None Anxiety or Irritability: 2=Irritable/Anxious Goose Flesh Skin: 0=Smooth Skin COWS Score: 13 CIWA Score - Admission Criteria OASAS Guidelines: Admission for Medically Managed Detox: Requires at least one of the followin. CIWA greater than 12 2. Seizures within the past 24 hours 3. Delirium tremens within the past 24 hours 4. Hallucinations within the past 24 hours 5. Acute intervention needed for co occurring medical disorder 6. Acute intervention needed for co occurring psychiatric disorder 7. Severe withdrawal that cannot be handled at a lower level of care (continued vomiting, continued diarrhea, abnormal vital signs) requiring intravenous medication and/or fluids 8. Admitting History and Physical - Past Medical History Pulmonary: Yes: Asthma ...LMP: 04/01/19 Heme/Onc: Yes: Anemia Psych: Yes: Depression Musculoskeletal: Yes: Chronic low back pain - Past Surgical History Past Surgical History: Yes: None - Smoking History Smoking history: Current every day smoker Have you smoked in the past 12 months: Yes Aproximately how many cigarettes per day: 20 - Alcohol/Substance Use Hx Alcohol Use: No History of Substance Use: reports: Heroin Date of Last Use: 09/11/19 - Social History History of Recent Travel: No Admission [facility] Chief Complaint: c/o withdrawal sx's Allergies/Adverse Reactions: Allergies Allergy/AdvReac Type Severity Reaction Status Date / Time chlordiazepoxide Allergy Severe Difficulty Verified 10/06/19 22:51 [From Librium] Breathing librium Allergy Severe Difficulty Uncoded 10/06/19 22:51 Breathing History of Present Illness: here for detox. client is self referred. left 2 weeks ago. presents today with c /o withdrawal sxs. client reports relapsing immediately after dc. using heroin 10 bags daily/ nasal. last use bush regenerator. hx/o drug overdose last being 3 months ago. denies iv use. denies any signifcant period of clean time. lives with children, unemployed, denies legals Exam Limitations: No Limitations - Ebola screening Have you traveled outside of the country in the last 21 days: No (N) Have you had contact with anyone from an Ebola affected area: No Do you have a fever: No - Review of Systems Constitutional: Chills, Loss of Appetite, Malaise, Night Sweats, Changes in sleep EENT: reports: Double Vision (reading glasses), Ear Pain, Dental Problems ( missing teeth) Respiratory: reports: No Symptoms reported Cardiac: reports: No Symptoms Reported GI: reports: Nausea, Poor Appetite, Poor Fluid Intake, Abdominal cramping : reports: No Symptoms Reported Musculoskeletal: reports: Back Pain, Joint Pain, Neck Pain Integumentary: reports: No Symptoms Reported Neuro: reports: Headache (migraine) Endocrine: reports: No Symptoms Reported Hematology: reports: Anemia Psychiatric: reports: Orientated x3, Agitated (irritable), Anxious, Depressed Other Systems: Reviewed and Negative Patient History - Patient Medical History Hx Anemia: Yes (no med) Hx Asthma: Yes Hx Chronic Obstructive Pulmonary Disease (COPD): No Hx Cancer: Yes (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) Hx Cardiac Disorders: No Hx Congestive Heart Failure: No Hx Hypertension: Yes Hx Hypercholesterolemia: No Hx Pacemaker: No HX Cerebrovascular Accident: No Hx Seizures: No Hx Dementia: No Hx Diabetes: No Hx Gastrointestinal Disorders: Yes Hx Liver Disease: No Hx Genitourinary Disorders: No Hx Sexually Transmitted Disorders: No Hx Renal Disease (ESRD): No Hx Thyroid Disease: No Hx Human Immunodeficiency Virus (HIV): No (NEGATIVE HX last 02/15) Hx Hepatitis C: No Hx Depression: Yes Hx Suicide Attempt: No Hx Bipolar Disorder: No Hx Schizophrenia: No - Patient Surgical History Past Surgical History: Yes Hx Neurologic Surgery: No Hx Cataract Extraction: No Hx Cardiac Surgery: No Hx Lung Surgery: No Hx Breast Surgery: No Hx Breast Biopsy: No Hx Abdominal Surgery: No Hx Appendectomy: No Hx Cholecystectomy: Yes (lap in 2006) Hx Genitourinary Surgery: Yes (carcinoma in situ s/p conization in 2013) Hx Section: No Hx Orthopedic Surgery: No Other Surgical History: Pt had a culposcopy. Anesthesia Reaction: No - PPD History Previous Implant?: Yes Documented Results: Negative w/proof Implanted On Prior R Admission?: Yes Date: 10/08/18 Results: 0mm PPD to be Administered?: Yes - Reproductive History Patient is a Female of Child Bearing Age (11 -55 yrs old): Yes Last Menstrual Period: 04/01/19 LMP comment: 09/30/2019 [place] [facility] [place] - Smoking Cessation Smoking history: Current every day smoker Have you smoked in the past 12 months: Yes Aproximately how many cigarettes per day: 20 Cigars Per Day: 0 Hx Chewing Tobacco Use: No Initiated information on smoking cessation: Yes 'Breaking Loose' booklet given: 10/06/19 - Substance & Tx. History Hx Alcohol Use: No Hx Substance Use: Yes Substance Use Type: Cocaine, Heroin Hx Substance Use Treatment: Yes ([facility]) - Substances abused Heroin Substance route: Inhalation Frequency: Daily Amount used: 9 bags Age of first use: 30 Date of last use: 10/06/19 Cocaine Substance route: Smoking Frequency: Daily Amount used: 25 bags Age of first use: 30 Date of last use: 10/06/19 Alcohol Substance route: Oral Frequency: 1-3 times last 30 days Amount used: 2 beers Age of first use: 47 Date of last use: 03/05/19 Marijuana/Hashish Substance route: Smoking Frequency: 1-2 times per week Amount used: 5$ Age of first use: 13 Date of last use: 07/28/19 Alprazolam (Xanax) Substance route: Oral Frequency: 1-3 times last 30 days Amount used: 2mgs Age of first use: 48 Date of last use: 03/06/19 Other Other (specify): klonopin Substance route: Oral Frequency: Daily Amount used: 1mg Age of first use: 48 Date of last use: 08/06/19 Admission Physical Exam BHS - Vital Signs Vital Signs: Vital Signs - 24 hr 10/06/19 22:56 Temperature 96.5 F L Pulse Rate 69 Respiratory 20 Rate Blood Pressure 120/77 - Physical General Appearance: Yes: Moderate Distress, Tremorous, Irritable, Anxious HEENTM: Yes: EOMI, Normocephalic, Normal Voice, ANGEL, Pharynx Normal, Nasal Congestion, Rhinorrhea Respiratory: Yes: Chest Non-Tender, Lungs Clear, Normal Breath Sounds, No Respiratory Distress, No Accessory Muscle Use Neck: Yes: No masses,lesions,Nodules, Supple, Trachea in good position Breast: Yes: Breasts Symetrical Cardiology: Yes: Regular Rhythm, Regular Rate, S1, S2 Abdominal: Yes: Normal Bowel Sounds, Non Tender, Soft, Protuberent Genitourinary: Yes: Within Normal Limits Back: Yes: Normal Inspection Musculoskeletal: Yes: full range of Motion, Gait Steady Extremities: Yes: Normal Capillary Refill, Normal Range of Motion, Non-Tender, Tremors Neurological: Yes: Fully Oriented, Alert, Motor Strength 5/5, Depressed Affect Integumentary: Yes: Dry, Warm Lymphatic: Yes: Within Normal Limits - Diagnostic (1) Substance-induced sleep disorder Current Visit: Yes Status: Acute (2) Cannabis dependence Current Visit: Yes Status: Acute (3) Cocaine dependence Current Visit: Yes Status: Acute Qualifiers: Substance use status: uncomplicated Qualified Code(s): F14.20 - Cocaine dependence, uncomplicated (4) GERD (gastroesophageal reflux disease) Current Visit: Yes Status: Chronic Qualifiers: Esophagitis presence: without esophagitis Qualified Code(s): K21.9 - Gastro -esophageal reflux disease without esophagitis (5) HTN (hypertension) Current Visit: Yes Status: Chronic Qualifiers: Hypertension type: essential hypertension Qualified Code(s): I10 - Essential (primary) hypertension (6) Nicotine dependence Current Visit: Yes Status: Chronic Qualifiers: Nicotine product type: cigarettes Substance use status: uncomplicated Qualified Code(s): F17.210 - Nicotine dependence, cigarettes, uncomplicated (7) Opioid dependence with withdrawal Current Visit: Yes Status: Acute (8) Substance induced mood disorder Current Visit: Yes Status: Acute (9) Osteoarthritis of both knees Current Visit: Yes Status: Chronic Qualifiers: Osteoarthritis type: unspecified Qualified Code(s): M17.0 - Bilateral primary osteoarthritis of knee Cleared for Admission [facility] - Detox or Rehab [facility] Level of Care: Medically Managed Detox Regimen/Protocol: Methadone Claeared for Rehab Admission: No Breathalyzer - Breathalyzer Breathalyzer: 0 POC Urine test - Test device test lot number: [id number] Expiration date: 07/30/20 - Control test control: Yes Urine Drug Screen - Test Device Lot number: [id number] Expiration date: 04/28/19 - Control Is test valid?: Yes - Results Drug screen NEGATIVE: No Urine drug screen results: THC-Marijuana, [place]-Cocaine, FEN-Fentanyl, MOP-Opiates , OXY-Oxycodone, BUP-Suboxone Inpatient Rehab Admission - Rehab Decision to Admit Inpatient rehab admission?: No
[2019-10-06] MEDS ORDERED: ALBUTEROL SO4 8 GM HFA INHALER IH PRN (23:20)
[2019-10-06] MEDS ORDERED: METHOCARBAMOL 500 MG TABLET PO PRN (23:21)
[2019-10-06] MEDS ORDERED: MAGNESIUM HYDROX 2400MG/30ML ORAL SUSPENSION 30 ML CUP PO PRN (23:21)
[2019-10-06] MEDS ORDERED: IBUPROFEN 400 MG TABLET (FP) PO PRN (23:21)
[2019-10-06] MEDS ORDERED: NICOTINE POLACRILEX 2 MG GUM BUC PRN (23:21)
[2019-10-06] MEDS ORDERED: MENTHOL/PHENOL 1 EACH UD MM PRN (23:21)
[2019-10-06] MEDS ORDERED: cloNIDine HCL 0.1 MG TABLET PO PRN (23:21)
[2019-10-06] MEDS ORDERED: DICYCLOMINE HCL 10 MG CAPSULE PO PRN (23:21)
[2019-10-06] MEDS ORDERED: MAGNESIUM CITRATE 300 ML BOTTLE PO PRN (23:21)
[2019-10-06] MEDS ORDERED: P-EPHED 60MG/TRIPROLIDI 2.5MG TABLET PO PRN (23:21)
[2019-10-06] MEDS ORDERED: ONDANSETRON *ODT* 4 MG TABLET SL PRN (23:21)
[2019-10-06] MEDS ORDERED: BISMUTH SUBSALICYLATE 524 MG/30 ML UD PO PRN (23:21)
[2019-10-06] MEDS ORDERED: ACETAMINOPHEN 325 MG TABLET (FP) PO PRN ×2 (23:21)
[2019-10-06] MEDS ORDERED: guaiFENesin 200 MG/10 ML 10 ML UNIT-DOSE CUPS PO PRN (23:21)
[2019-10-06] MEDS ORDERED: METHADONE HCL 10 MG TABLET (FOR DETOX USE ONLY) PO ONE (23:45)
[2019-10-07] MEDS: MAG HYDROX/AL HYDROX/SIMETH 30 ML UNIT-DOSE CUP PO PRN (00:07)
[2019-10-07] MEDS: GABAPENTIN 100 MG CAPSULE (FP) PO SCH ×3 (05:56→22:33)
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
[2019-10-07] MEDS ORDERED: METHADONE HCL 10 MG TABLET (FOR DETOX USE ONLY) PO ONE (10:00)
[2019-10-07] MEDS: PRENATAL VITAMINS W/ FOLIC ACID TABLET (FP) PO SCH (10:40)
[2019-10-07] MEDS: NICOTINE 21 MG/24 HOURS TOPICAL PATCH TD SCH (10:40)
[2019-10-07] MEDS: PANTOPRAZOLE 20 MG TABLET (FP) PO SCH (10:40)
[2019-10-07] MEDS: QUEtiapine FUMARATE 50 MG TABLET PO SCH (10:41)
--- NOTE | 2019-10-07 14:22 | PN ---
BHS COWS - Scale Resting Pulse: 1= [place] 81-100 Sweatin=Flushed/Facial Moisture Restless Observation: 1= Difficult to Sit Still Pupil Size: 0= Normal to Room Light Bone or Joint Aches: 2= Severe Diffuse Aches Runny Nose/ Eye Tearin= Nasal Congestion GI Upset > 30mins: 0= None Tremor Observation of Outstretched Hands: 1= Tremor [place], Not Seen Yawning Observation: 1= 1-2x During Session Anxiety or Irritability: 2=Irritable/Anxious Goose Flesh Skin: 0=Smooth Skin COWS Score: 11 [facility] Progress Note (SOAP) Subjective: body aches sweats shakes interrupted sleep irritable Objective: 10/07/19 14:21 Vital Signs Temperature 98.3 F 10/07/19 13:50 Pulse Rate 80 10/07/19 13:50 Respiratory Rate 18 10/07/19 13:50 Blood Pressure 154/76 10/07/19 13:50 O2 Sat by Pulse Oximetry (%) labs pending aaox3 ambulating no acute distress Assessment: 10/07/19 14:23 withdrawal sx Plan: continue detox increase fluids motrin 800mg tid prn lidocaine patch
[2019-10-07] MEDS: LIDOCAINE 5% TOPICAL PATCH TP ONE ×2 (15:10→15:14)
[2019-10-07] MEDS: QUEtiapine FUMARATE 100 MG TABLET (FP) PO SCH (22:33)
[2019-10-07] MEDS: THIAMINE HCL 100 MG TABLET (FP) PO SCH (22:33)
[2019-10-07] MEDS: LIDOCAINE PATCH REMOVAL MC SCH (23:08)
[2019-10-08] MEDS: GABAPENTIN 100 MG CAPSULE (FP) PO SCH ×3 (07:27→22:46)
[2019-10-08] MEDS ORDERED: METHADONE HCL 10 MG TABLET (FOR DETOX USE ONLY) PO ONE (10:00)
[2019-10-08] MEDS: PANTOPRAZOLE 20 MG TABLET (FP) PO SCH (10:54)
[2019-10-08] MEDS: QUEtiapine FUMARATE 50 MG TABLET PO SCH (10:54)
[2019-10-08] MEDS: PRENATAL VITAMINS W/ FOLIC ACID TABLET (FP) PO SCH (10:54)
[2019-10-08] MEDS: NICOTINE 21 MG/24 HOURS TOPICAL PATCH TD SCH (10:55)
[2019-10-08] MEDS: LIDOCAINE 5% TOPICAL PATCH TP SCH (10:55)
[2019-10-08] MEDS: hydrOXYzine PAMOATE 25 MG CAPSULE (FP) PO PRN ×2 (10:56→22:47)
--- NOTE | 2019-10-08 13:46 | PN ---
BHS COWS - Scale Resting Pulse: 1= [place] 81-100 Sweatin= Chills/Flushing Restless Observation: 1= Difficult to Sit Still Pupil Size: 0= Normal to Room Light Bone or Joint Aches: 2= Severe Diffuse Aches Runny Nose/ Eye Tearin= Runny Nose/Eyes GI Upset > 30mins: 0= None Tremor Observation of Outstretched Hands: 1= Tremor [place], Not Seen Yawning Observation: 1= 1-2x During Session Anxiety or Irritability: 1=Feels Anxious/Irritable Goose Flesh Skin: 0=Smooth Skin COWS Score: 10 BHS Progress Note (SOAP) Subjective: sweats shakes interrupted sleep body aches irritable Objective: 10/08/19 13:45 Vital Signs Temperature 99.0 F 10/08/19 10:01 Pulse Rate 82 10/08/19 10:01 Respiratory Rate 18 10/08/19 10:01 Blood Pressure 136/84 10/08/19 10:01 O2 Sat by Pulse Oximetry (%) aaox3 ambulating no acute distress Assessment: 10/08/19 13:46 withdrawal sx Plan: continue detox increase fluids
[2019-10-08] MEDS: THIAMINE HCL 100 MG TABLET (FP) PO SCH (22:46)
[2019-10-08] MEDS: QUEtiapine FUMARATE 100 MG TABLET (FP) PO SCH (22:46)
[2019-10-08] MEDS: MELATONIN 5 MG TABLETS PO PRN (22:46)
[2019-10-08] MEDS: LIDOCAINE PATCH REMOVAL MC SCH (22:46)
[2019-10-09] MEDS: GABAPENTIN 100 MG CAPSULE (FP) PO SCH ×3 (06:47→22:32)
[2019-10-09] MEDS ORDERED: METHADONE (DETOX) 10 MG, METHADONE (DETOX) 5 MG PO ONE (10:00)
[2019-10-09] MEDS ORDERED: METHADONE HCL 5 MG TABLET (FOR DETOX USE ONLY) ONE (10:46)
[2019-10-09] MEDS ORDERED: METHADONE HCL 10 MG TABLET (FOR DETOX USE ONLY) ONE (10:46)
[2019-10-09] MEDS: NICOTINE 21 MG/24 HOURS TOPICAL PATCH TD SCH (11:00)
[2019-10-09] MEDS: PRENATAL VITAMINS W/ FOLIC ACID TABLET (FP) PO SCH (11:00)
[2019-10-09] MEDS: PANTOPRAZOLE 20 MG TABLET (FP) PO SCH (11:00)
[2019-10-09] MEDS: LIDOCAINE 5% TOPICAL PATCH TP SCH (11:01)
[2019-10-09] MEDS: QUEtiapine FUMARATE 50 MG TABLET PO SCH (11:02)
[2019-10-09] MEDS: hydrOXYzine PAMOATE 25 MG CAPSULE (FP) PO PRN ×2 (11:02→22:33)
--- NOTE | 2019-10-09 17:33 | PN ---
[facility] COWS - Scale Resting Pulse: 0= OK 80 or Below Sweatin= Chills/Flushing Restless Observation: 1= Difficult to Sit Still Pupil Size: 0= Normal to Room Light Bone or Joint Aches: 1= Mild Discomfort Runny Nose/ Eye Tearin= None GI Upset > 30mins: 2= Nausea/Diarrhea Tremor Observation of Outstretched Hands: 2= Slight Tremor Visible Yawning Observation: 0= None Anxiety or Irritability: 1=Feels Anxious/Irritable Goose Flesh Skin: 0=Smooth Skin COWS Score: 8 S Progress Note (SOAP) Subjective: Diarrhea, chills, anxious Objective: 10/09/19 17:31 Last Vital Signs Temp Pulse Resp BP Pulse Ox 98.1 F 68 16 122/63 10/09/19 14:22 10/09/19 14:22 10/09/19 14:22 10/09/19 14:22 No admission labs available for review Assessment: 10/09/19 17:32 Withdrawal sxs Plan: Continue detox Encouraged PO water intake
[2019-10-09] MEDS: QUEtiapine FUMARATE 100 MG TABLET (FP) PO SCH (22:32)
[2019-10-09] MEDS: LIDOCAINE PATCH REMOVAL MC SCH (22:32)
[2019-10-09] MEDS: THIAMINE HCL 100 MG TABLET (FP) PO SCH (22:32)
[2019-10-09] MEDS: MELATONIN 5 MG TABLETS PO PRN (22:32)
[2019-10-09] MEDS: IBUPROFEN 400 MG TABLET (FP) PO PRN (22:34)
[2019-10-10] MEDS: GABAPENTIN 100 MG CAPSULE (FP) PO SCH ×3 (06:20→22:29)
[2019-10-10] MEDS: IBUPROFEN 400 MG TABLET (FP) PO PRN (06:21)
[2019-10-10 09:58] LABS: EPI CELLS 15.5 /HPF (0-5/HPF); HYALINE CASTS 15 /lpf (0-8); PH,URINE 5.5 (5.0-8.0); URINE APPEARANCE CLOUDY; URINE BACTERIA 87.6 /hpf (NEGATIVE); URINE BILIRUBIN NEGATIVE (NEGATIVE); URINE COLOR YELLOW; URINE GLUCOSE (UA) NEGATIVE (NEGATIVE); URINE KETONE NEGATIVE (NEGATIVE); URINE LEUK ESTERASE 2+ (NEGATIVE); URINE NITRITE NEGATIVE (NEGATIVE); URINE PROTEIN NEGATIVE (NEGATIVE); URINE RBC 5 /hpf (0-4); URINE UROBILINOGEN 0.2 mg/dL (0.2-1.0); URINE WBC 45 /hpf (0-5)
[2019-10-10] MEDS ORDERED: METHADONE HCL 10 MG TABLET (FOR DETOX USE ONLY) PO ONE (10:00)
[2019-10-10] MEDS: NICOTINE 21 MG/24 HOURS TOPICAL PATCH TD SCH (10:51)
[2019-10-10] MEDS: MAG HYDROX/AL HYDROX/SIMETH 30 ML UNIT-DOSE CUP PO PRN (10:51)
[2019-10-10] MEDS: PRENATAL VITAMINS W/ FOLIC ACID TABLET (FP) PO SCH (10:51)
[2019-10-10] MEDS: PANTOPRAZOLE 40 MG TABLET (FP) PO SCH (10:51)
[2019-10-10] MEDS: QUEtiapine FUMARATE 50 MG TABLET PO SCH (10:51)
[2019-10-10] MEDS: LIDOCAINE 5% TOPICAL PATCH TP SCH ×2 (10:52→12:36)
[2019-10-10] MEDS: hydrOXYzine PAMOATE 25 MG CAPSULE (FP) PO PRN (10:56)
--- NOTE | 2019-10-10 13:33 | PN ---
BHS COWS - Scale Resting Pulse: 1= [place] 81-100 Sweatin= Chills/Flushing Restless Observation: 0= Sits Still Pupil Size: 0= Normal to Room Light Bone or Joint Aches: 1= Mild Discomfort Runny Nose/ Eye Tearin= None GI Upset > 30mins: 0= None Tremor Observation of Outstretched Hands: 1= Tremor [place], Not Seen Yawning Observation: 1= 1-2x During Session Anxiety or Irritability: 1=Feels Anxious/Irritable Goose Flesh Skin: 0=Smooth Skin COWS Score: 6 BHS Progress Note (SOAP) Subjective: knee pain nausea Objective: 10/10/19 13:32 Vital Signs Temperature 97.8 F 10/10/19 09:54 Pulse Rate 88 10/10/19 09:54 Respiratory Rate 18 10/10/19 09:54 Blood Pressure 126/51 L 10/10/19 09:54 O2 Sat by Pulse Oximetry (%) aaox3 ambulating no acute distress Assessment: 10/10/19 13:32 withdrawal sx Plan: continue detox tiagn IM x one lidocaine patch ordered for knee cane ordered
[2019-10-10] MEDS ORDERED: TRIMETHOBENZAMIDE HCL 200MG/2ML INJ IM ONE (14:00)
[2019-10-10] MEDS: QUEtiapine FUMARATE 100 MG TABLET (FP) PO SCH (22:29)
[2019-10-10] MEDS: THIAMINE HCL 100 MG TABLET (FP) PO SCH (22:29)
[2019-10-10] MEDS: LIDOCAINE PATCH REMOVAL MC SCH (22:29)
[2019-10-10] MEDS: MELATONIN 5 MG TABLETS PO PRN (22:30)
[2019-10-11] MEDS ORDERED: METHADONE HCL 5 MG TABLET (FOR DETOX USE ONLY) PO ONE (06:00)
[2019-10-11] MEDS: GABAPENTIN 100 MG CAPSULE (FP) PO SCH (06:33)
[2019-10-11] MEDS: IBUPROFEN 400 MG TABLET (FP) PO PRN (06:36)
--- NOTE | 2019-10-11 09:43 | DS ---
[facility] Detox Discharge Summary Admission Date: 10/06/19 Discharge Date: 10/11/19 - History Present History: Alcohol Dependence, Cannabis Dependence, Cocaine Dependence, Opioid Dependence - Physical Exam Results Vital Signs: Vital Signs Temperature 98.1 F 10/11/19 06:00 Pulse Rate 80 10/11/19 06:00 Respiratory Rate 18 10/11/19 06:00 Blood Pressure 144/79 10/11/19 06:00 O2 Sat by Pulse Oximetry (%) Pertinent Admission Physical Exam Findings: pt arrived in withdrawals Vital Signs Temperature 98.1 F 10/11/19 06:00 Pulse Rate 80 10/11/19 06:00 Respiratory Rate 18 10/11/19 06:00 Blood Pressure 144/79 10/11/19 06:00 O2 Sat by Pulse Oximetry (%) Laboratory Tests 10/10/19 07:50 Urine Color Yellow Urine Appearance Cloudy Urine pH 5.5 Ur Specific [place] 1.028 Urine Protein Negative Urine Glucose (UA) Negative Urine Ketones Negative Urine Blood Negative Urine Nitrite Negative Urine Bilirubin Negative Urine Urobilinogen 0.2 Ur Leukocyte Esterase 2+ H Urine WBC (Auto) 45 Urine RBC (Auto) 5 Urine Casts (Auto) 15 U Epithel Cells (Auto) 15.5 Urine Bacteria (Auto) 87.6 today pt is aaox3 ambulating no acute distress - Treatment Hospital Course: Detox Protocol Followed, Detoxed Safely, Responded well, Discharged Condition Good, Rehab Referral Accepted Patient has Accepted a Rehab Referral to: pt referred to inpatient rehab - Medication Discharge Medications: Ambulatory Orders Omeprazole 40 mg PO DAILY 02/27/17 Albuterol Sulfate Inhaler - [Ventolin HFA Inhaler -] 2 inh PO Q4H PRN #1 inhaler 10/10/18 Ibuprofen [Motrin -] 800 mg PO BID PRN 06/14/19 Quetiapine Fumarate [Seroquel -] 50 mg PO DAILY 06/14/19 Quetiapine Fumarate [Seroquel -] 100 mg PO HS #30 tablet 08/15/19 - Diagnosis (1) Cannabis dependence Current Visit: Yes Status: Chronic (2) Cocaine dependence Current Visit: Yes Status: Chronic Qualifiers: Substance use status: uncomplicated Qualified Code(s): F14.20 - Cocaine dependence, uncomplicated (3) Opioid dependence with withdrawal Current Visit: Yes Status: Chronic (4) Substance induced mood disorder Current Visit: Yes Status: Acute (5) Substance-induced sleep disorder Current Visit: Yes Status: Acute (6) GERD (gastroesophageal reflux disease) Current Visit: Yes Status: Chronic Qualifiers: Esophagitis presence: without esophagitis Qualified Code(s): K21.9 - Gastro -esophageal reflux disease without esophagitis (7) HTN (hypertension) Current Visit: Yes Status: Chronic Qualifiers: Hypertension type: essential hypertension Qualified Code(s): I10 - Essential (primary) hypertension (8) Nicotine dependence Current Visit: Yes Status: Chronic Qualifiers: Nicotine product type: cigarettes Substance use status: uncomplicated Qualified Code(s): F17.210 - Nicotine dependence, cigarettes, uncomplicated (9) Osteoarthritis of both knees Current Visit: Yes Status: Chronic Qualifiers: Osteoarthritis type: unspecified Qualified Code(s): M17.0 - Bilateral primary osteoarthritis of knee (10) Depression Current Visit: No Status: Acute (11) History of bipolar disorder Current Visit: No Status: Chronic (12) Insomnia Current Visit: No Status: Chronic Qualifiers: Insomnia type: unspecified Qualified Code(s): G47.00 - Insomnia, unspecified (13) Low back pain Current Visit: Yes Status: Chronic Qualifiers: Chronicity: chronic Back pain laterality: unspecified Sciatica presence: unspecified whether sciatica present Qualified Code(s): M54.5 - Low back pain ; G89.29 - Other chronic pain (14) Mood disorder Current Visit: No Status: Chronic (15) Carcinoma uterine cervix in situ Current Visit: No Status: Resolved Qualifiers: Carcinoma in situ of uterine cervix location: unspecified part of cervix Qualified Code(s): D06.9 - Carcinoma in situ of cervix, unspecified (16) Bipolar disorder Current Visit: No Status: Ruled-out - AMA Did Patient Leave Against Medical Advice: No
[2019-10-11 09:49] VITALS: BP 115/65; PULSE 101; TEMP 98.6
[2019-10-11] MEDS: NICOTINE 21 MG/24 HOURS TOPICAL PATCH TD SCH (10:30)
[2019-10-11] MEDS: PRENATAL VITAMINS W/ FOLIC ACID TABLET (FP) PO SCH (10:30)
[2019-10-11] MEDS: QUEtiapine FUMARATE 50 MG TABLET PO SCH (10:31)
[2019-10-11] MEDS: PANTOPRAZOLE 40 MG TABLET (FP) PO SCH (10:31)
[2019-10-11] MEDS: LIDOCAINE 5% TOPICAL PATCH TP SCH (10:31)
[2019-10-11] MEDS: MAG HYDROX/AL HYDROX/SIMETH 30 ML UNIT-DOSE CUP PO PRN (10:32)
== END 2019-10-11 12:47 | disposition other institution (70) | DRG 773 ==
LOC: YASAS 22:22 → Y6N 23:32
PROVIDERS: ADMIT Allergy & Immunology; ATTEND Allergy & Immunology
PROC: HZ2ZZZZ Detoxification Services for Substance Abuse Treatment (ICD-10-PCS; principal; 2019-10-06)
DX: F11.23 Opioid dependence with withdrawal (principal); F10.230 Alcohol dependence with withdrawal, uncomplicated; F14.20 Cocaine dependence, uncomplicated; F12.20 Cannabis dependence, uncomplicated; F17.220 Nicotine dependence, chewing tobacco, uncomplicated; F19.282 Other psychoactive substance dependence with psychoactive substance-induced sleep disorder; F19.24 Other psychoactive substance dependence with psychoactive substance-induced mood disorder; F39 Unspecified mood [affective] disorder; F64.9 Gender identity disorder, unspecified; I10 Essential (primary) hypertension; K21.9 Gastro-esophageal reflux disease without esophagitis; M17.0 Bilateral primary osteoarthritis of knee; M54.30 Sciatica, unspecified side; M54.5 Low back pain; G89.29 Other chronic pain; Z85.41 Personal history of malignant neoplasm of cervix uteri; Z90.49 Acquired absence of other specified parts of digestive tract; Z88.8 Allergy status to other drugs, medicaments and biological substances; Z86.59 Personal history of other mental and behavioral disorders
CPT/HCPCS: 81003; 81025

== ENCOUNTER 2019-10-11 13:13 | Inpatient (IN) | payer OTHER ==
[2019-10-11] MEDS ORDERED: IBUPROFEN 600 MG TABLET (FP) PO PRN (13:50)
[2019-10-11] MEDS ORDERED: ALBUTEROL SO4 8 GM HFA INHALER IH PRN (13:50)
[2019-10-11] MEDS ORDERED: NICOTINE POLACRILEX 4 MG GUM BUC PRN (13:51)
[2019-10-11] MEDS ORDERED: guaiFENesin 200 MG/10 ML 10 ML UNIT-DOSE CUPS PO PRN (13:51)
[2019-10-11] MEDS ORDERED: MENTHOL/PHENOL 1 EACH UD MM PRN (13:51)
[2019-10-11] MEDS ORDERED: MAGNESIUM HYDROX 2400MG/30ML ORAL SUSPENSION 30 ML CUP PO PRN (13:51)
[2019-10-11] MEDS ORDERED: LOPERAMIDE HCL 2 MG CAPSULE PO PRN (13:51)
[2019-10-11] MEDS ORDERED: MAGNESIUM CITRATE 300 ML BOTTLE PO PRN (13:51)
[2019-10-11] MEDS ORDERED: ACETAMINOPHEN 325 MG TABLET (FP) PO PRN (13:51)
[2019-10-11] MEDS ORDERED: P-EPHED 60MG/TRIPROLIDI 2.5MG TABLET PO PRN (13:51)
[2019-10-11] MEDS: hydrOXYzine PAMOATE 50 MG CAPSULE (FP) PO PRN (14:18)
[2019-10-11] MEDS: MAG HYDROX/AL HYDROX/SIMETH 30 ML UNIT-DOSE CUP PO PRN (14:18)
[2019-10-11] MEDS ORDERED: IBUPROFEN 400 MG TABLET (FP) PO PRN (14:48)
[2019-10-11] MEDS: cloNIDine HCL 0.1 MG TABLET PO SCH (21:18)
[2019-10-11] MEDS: QUEtiapine FUMARATE 100 MG TABLET (FP) PO SCH (21:18)
[2019-10-11] MEDS: THIAMINE HCL 100 MG TABLET (FP) PO SCH (21:18)
[2019-10-11] MEDS: LIDOCAINE PATCH REMOVAL MC SCH (21:19)
[2019-10-11] MEDS ORDERED: MELATONIN 5 MG TABLETS PO PRN (22:00)
[2019-10-12] MEDS: MAG HYDROX/AL HYDROX/SIMETH 30 ML UNIT-DOSE CUP PO PRN ×2 (06:59→12:35)
[2019-10-12] MEDS: cloNIDine HCL 0.1 MG TABLET PO SCH ×2 (09:46→23:02)
[2019-10-12] MEDS ORDERED: PRENATAL VITAMINS W/ FOLIC ACID TABLET (FP) PO SCH (10:00)
[2019-10-12] MEDS ORDERED: QUEtiapine FUMARATE 50 MG TABLET PO SCH (10:00)
[2019-10-12] MEDS ORDERED: LIDOCAINE 5% TOPICAL PATCH TP SCH (10:00)
[2019-10-12] MEDS ORDERED: NICOTINE 21 MG/24 HOURS TOPICAL PATCH TD SCH (10:00)
[2019-10-12] MEDS ORDERED: PANTOPRAZOLE 40 MG TABLET (FP) PO SCH (10:00)
--- NOTE | 2019-10-12 10:52 | HP ---
[facility] Rehab Assess/Revision - Admission History Admitted to Rehab from: [facility] (Pt was admitted to rehab yesterday from [facility] after completion of her detox treatment.) Date of Admission to Rehab: 10/11/19 - Vital signs Vital Signs: Vital Signs Period Temp Pulse Resp BP Sys/Mccracken Pulse Ox Last 24 Hr 97 F-97.7 F 20-95 18-94 118-157/77-102 - Findings Detox History & Physical reviewed: Yes Concur with findings: Yes Comments/Additional Findings: Pt has a hx of Anemia, asthma, Cervical Ca, HTN , GERd/Gastritis and Depression. Inpatient Rehab Admission - Rehab Decision to Admit Inpatient rehab admission?: Yes - Initial Determination Are CD services needed?: Yes Free of communicable disease: Yes Not in need of hospitalization: Yes - Rehab Admission Criteria Previous failed treatment: Yes Poor recovery environment: Yes Comorbidities: Yes Lacks judgement: Yes Patient is meeting Inpatient Rehab admission criteria:: Yes
[2019-10-12] MEDS: hydrOXYzine PAMOATE 50 MG CAPSULE (FP) PO PRN (12:35)
[2019-10-12] MEDS ORDERED: CYCLOBENZAPRINE HCL 10 MG TABLET (FP) PO PRN (12:59)
--- NOTE | 2019-10-12 13:10 | PN ---
[facility] Progress Note Note: Pt is a 49 y/o female known to this program, completed detox yesterday on and referred to rehab. Most recently, Pt has been in detox and rehab consecutively on 07/28- 08/02/19(detox) then 08/02 -08/15/19(rehab); 09/11-09/16/19( detox) then 09/16/19 -09/18/19(rehab). Pt returned to detox on 10/06/19 - then now in rehab from 10/11 till date for continued treatment. Pt was started on suboxone-MAT during her July rehab admission and referred to her outpatient program at [facility] with suboxone Rx 8mg/2mg sl BID #14. Pt was unable to follow up with appointment as she reports was immediately drawn into drug use by following another individual user soon after exiting the building. An effort to re-evaluate patient during her August rehab admission proved unsuccessful as patient signed herself out a day or two after admission to rehab unit. Pt states she is unable to stay off drugs and wants suboxone and may need a [facility] residential rehab. also reports has w/s of abdominal cramps , anxiety and diarrhea. Suggested to patient may try methadone maintenance treatment to allow her for more structured treatment. D/w patient that multidisciplinary team will meet with patient to plan on appropriate aftercare plan for her. Vital Signs - 24 hr 10/11/19 10/12/19 10/12/19 14:20 00:30 03:30 Temperature Pulse Rate 95 H Respiratory 18 18 18 Rate Blood Pressure 145/92 10/12/19 10/12/19 07:11 09:39 Temperature 97.7 F Pulse Rate 83 88 Respiratory 18 Rate Blood Pressure 118/79 122/77 alert o x 3 nad oob ambulating with steady gait A/P w/s post detox Continue clonidine 0.1 mg po bid prn for w/s flexeril 10 mg po tid prn for muscle cramps change to pepcid 20 mg po bid for hx GERD Imodium prn for diarrhea Increase po fluids as tolerated Follow up with primary counselor, multidisciplinary team and referral location for discharge plan of care pending completion of rehab treatment.
[2019-10-12] MEDS ORDERED: PANTOPRAZOLE 20 MG TABLET (FP) PO ONE (17:30)
--- NOTE | 2019-10-12 18:23 | PN ---
Progress Note (short form) - Note Progress Note: Received call from 3E nurse. Patient c/o midepigastric pain s/p dinner. On arrival to unit, patient lying flat in her bed. States that 30 mins ago she began to have midepigastric pain. Patient says she took her usual pepsid dose this morning. The nurse offered her evening dose of PO pepsid which she is refusing, stating that only IV protonix and pain medications will help this GERD episode. Patient states this pain feels similar to her usual GERD episodes. The patient denies shortness of breath. palpitations, headaches, muscle pains. Physical exam: VS: BP152/81 HR 99 T 97.9F Neuro: AOx3 Cardio: S1S2 heard. No murmurs. Abd: + midepigastric tenderness A/P: -Offered evening dose of PO pepcid; patient refused, states only IV pain meds and IV protonix will help her -Ordered PO protonix patient refused Spoke with patient regarding trial of PO medications Will continue to monitor patient Ibuprofen on hold d/t gastric symptoms Case discussed with Dr. Villalba & FLOORING INSTALLER; no clinical indication for transfer to ED at this time
[2019-10-12 19:07] VITALS: BP 152/81; PULSE 99; TEMP 97.9
[2019-10-12] MEDS ORDERED: FAMOTIDINE 20 MG TABLET PO SCH (22:00)
[2019-10-12] MEDS: LIDOCAINE PATCH REMOVAL MC SCH (23:02)
[2019-10-12] MEDS: THIAMINE HCL 100 MG TABLET (FP) PO SCH (23:03)
[2019-10-12] MEDS: QUEtiapine FUMARATE 100 MG TABLET (FP) PO SCH (23:03)
== END 2019-10-12 23:26 | disposition left against medical advice (07) | DRG 770 ==
LOC: YASAS 13:13 → Y3E 13:26
PROVIDERS: ADMIT Neuromusculoskeletal Medicine & OMM; ATTEND Neuromusculoskeletal Medicine & OMM
PROC: HZ42ZZZ Group Counseling for Substance Abuse Treatment, Cognitive-Behavioral (ICD-10-PCS; principal; 2019-10-11)
DX: F11.20 Opioid dependence, uncomplicated (principal); F14.20 Cocaine dependence, uncomplicated; F12.20 Cannabis dependence, uncomplicated; F17.210 Nicotine dependence, cigarettes, uncomplicated; F19.24 Other psychoactive substance dependence with psychoactive substance-induced mood disorder; F19.282 Other psychoactive substance dependence with psychoactive substance-induced sleep disorder; I10 Essential (primary) hypertension; R10.13 Epigastric pain; M17.0 Bilateral primary osteoarthritis of knee; K21.9 Gastro-esophageal reflux disease without esophagitis
CPT/HCPCS: J0735

== ENCOUNTER 2019-10-29 08:03 | Inpatient (IN) | payer OTHER ==
[2019-10-29 08:39] VITALS: BMI 26.4
--- NOTE | 2019-10-29 09:15 | HP ---
COWS - Scale Resting Pulse: 1= [place] 81-100 Sweatin= Chills/Flushing Restless Observation: 1= Difficult to Sit Still Pupil Size: 0= Normal to Room Light Bone or Joint Aches: 2= Severe Diffuse Aches Runny Nose/ Eye Tearin= Runny Nose/Eyes GI Upset > 30mins: 1= Stomach Cramp Tremor Observation: 2= Slight Tremor Visible Yawning Observation: 1= 1-2x During Session Anxiety or Irritability: 1=Feels Anxious/Irritable Goose Flesh Skin: 3=Piloerection COWS Score: 15 Admitting History and Physical - Admission History Source: Patient, Medical Record - Past Medical History Pulmonary: Yes: Asthma Gastrointestinal: Yes: Gastritis, GERD ...LMP: 04/01/19 Psych: Yes: Depression Musculoskeletal: Yes: Chronic low back pain, Osteoarthritis - Past Surgical History Past Surgical History: Yes: None - Smoking History Smoking history: Current every day smoker Have you smoked in the past 12 months: Yes Aproximately how many cigarettes per day: 20 - Alcohol/Substance Use Hx Alcohol Use: Yes History of Substance Use: reports: Cocaine, Heroin, Marijuana Date of Last Use: 10/28/19 - Social History Usual Living Arrangement: Yes: Other (with adult daughters) History of Recent Travel: No Admission ROS [facility] - HPI Chief Complaint: I want lockstitch zipper setter after this, I can't be on the outside, I can't stop - I always go back Allergies/Adverse Reactions: Allergies Allergy/AdvReac Type Severity Reaction Status Date / Time chlordiazepoxide Allergy Severe Difficulty Verified 10/29/19 09:58 [From Librium] Breathing librium Allergy Severe Difficulty Uncoded 10/29/19 08:25 Breathing History of Present Illness: 49 yo woman here for detox from opiates, also using cocaine and marijuana. This is one of multiple admissions for treatment. She was most recently here for detox 10/06-10/11/19 and then went to rehab here on 10/11. She left after one day due to severe gastritis - she went to [facility] ED on 11/11/19 where they treated her with IV antacid and 'two other medications' for several hours and released her. She went home and was okay for a few days but resumed using heroin. Denies overdose or seizures but has had black outs. She was on suboxone (see below) as well as a methadone program 2 years ago (40mg) for about five months but left to go to [place] and resumed using while there. She wishes to be in a lockstitch zipper setter residential program after detox. Patients states she has chronic and severe gastritis 'attacks' when only IV treatment helps - she is supposed to get an EGD but has not yet done so. Denies drinking alcohol , urine tox + buprenorphine - states she buys on street sometimes to help her cravings but finds being in a program difficult [facility] Others' Prescriptions Patient Name: Leydi Tolbert Date: 1970 Address: [address] [place] [address] Sex: Female Rx Written Rx Dispensed Drug Quantity Days Supply Prescriber Name 08/15/2019 08/15/2019 buprenorphine-naloxone 8-2 mg sl film 14 7 Madhavi Ortiz NP 02/07/2019 02/07/2019 buprenorphine-naloxone 8-2 mg sl film 14 7 Madhavi Ortiz NP Patient Name: Leydi Tolbert Date: 1970 Address: [address] [place] [address] Sex: Female Rx Written Rx Dispensed Drug Quantity Days Supply Prescriber Name 05/13/2019 05/13/2019 suboxone 8 mg-2 mg sl film 28 14 Molly Michelle MD Exam Limitations: No Limitations - Ebola screening Have you traveled outside of the country in the last 21 days: No Have you had contact with anyone from an Ebola affected area: No Do you have a fever: No - Review of Systems Constitutional: Chills, Loss of Appetite, Malaise, Changes in sleep, Weakness EENT: reports: Tearing, Nose Congestion Respiratory: reports: No Symptoms reported Cardiac: reports: No Symptoms Reported GI: reports: Nausea, Poor Appetite, Indigestion, Abdominal cramping : reports: Dysuria Musculoskeletal: reports: Back Pain, Joint Pain (knees), Muscle Pain, Joint Stiffness Integumentary: reports: No Symptoms Reported Neuro: reports: Headache, Numbness (toes get numb), Tremors Endocrine: reports: No Symptoms Reported Hematology: reports: No Symptoms Reported Psychiatric: reports: Judgement Intact, Mood/Affect Appropiate, Orientated x3, Anxious Other Systems: Reviewed and Negative Patient History - Patient Medical History Hx Anemia: No Hx Asthma: Yes Hx Chronic Obstructive Pulmonary Disease (COPD): No Hx Cancer: Yes (cervical ca follow up with own personal care aid) Hx Cardiac Disorders: No Hx Congestive Heart Failure: No Hx Hypertension: Yes Hx Hypercholesterolemia: No Hx Pacemaker: No HX Cerebrovascular Accident: No Hx Seizures: No Hx Dementia: No Hx Diabetes: No Hx Gastrointestinal Disorders: Yes (severe GERD) Hx Liver Disease: No Hx Genitourinary Disorders: No Hx Sexually Transmitted Disorders: No Hx Renal Disease (ESRD): No Hx Thyroid Disease: No Hx Human Immunodeficiency Virus (HIV): No (NEGATIVE HX last 02/15) Hx Hepatitis C: Yes (NO VIRAL LOAD) Hx Depression: Yes Hx Suicide Attempt: No Hx Bipolar Disorder: No Hx Schizophrenia: No - Patient Surgical History Past Surgical History: Yes Hx Neurologic Surgery: No Hx Cataract Extraction: No Hx Cardiac Surgery: No Hx Lung Surgery: No Hx Breast Surgery: No Hx Breast Biopsy: No Hx Abdominal Surgery: No Hx Appendectomy: No Hx Cholecystectomy: Yes (lap in 2006) Hx Genitourinary Surgery: Yes (carcinoma in situ s/p conization in 2013) Hx Section: No Hx Orthopedic Surgery: No Other Surgical History: Pt had a colposcopy. Anesthesia Reaction: No - PPD History Previous Implant?: Yes Documented Results: Negative w/proof Implanted On Prior [facility] Admission?: Yes Date: 10/08/18 Results: 0mm PPD to be Administered?: Yes - Reproductive History Last Menstrual Period: 04/01/19 - Smoking Cessation Smoking history: Current every day smoker Have you smoked in the past 12 months: Yes Aproximately how many cigarettes per day: 20 Cigars Per Day: 0 Hx Chewing Tobacco Use: No Initiated information on smoking cessation: Yes 'Breaking Loose' booklet given: 10/29/19 (give on floor) - Substance & Tx. History Hx Alcohol Use: Yes (none x one year) Hx Substance Use: Yes Substance Use Type: Cocaine, Heroin, Marijuana, Opiates Hx Substance Use Treatment: Yes (detox, rehab, suboxone, [facility]) - Substances abused Heroin Substance route: Inhalation Frequency: Daily Amount used: 10 bags Age of first use: 30 Date of last use: 10/28/19 Cocaine Substance route: Smoking Frequency: Daily Amount used: $80-100$/day Age of first use: 30 Date of last use: 10/28/19 Marijuana/Hashish Substance route: Smoking Frequency: 1-2 times per week Amount used: 5$ Age of first use: 13 Date of last use: 10/27/19 Other Other (specify): suboxone Substance route: Oral Frequency: 1-3 times last 30 days Amount used: 2mg Age of first use: 47 Date of last use: 10/25/19 Admission Physical Exam S - Vital Signs Vital Signs: Vital Signs - 24 hr 10/29/19 08:31 Temperature 96.9 F L Pulse Rate 99 H Respiratory 16 Rate Blood Pressure 152/78 - Physical General Appearance: Yes: Nourished, Appropriately Dressed, Moderate Distress, Tremorous, Anxious HEENTM: Yes: EOMI, Hearing grossly Normal, Normocephalic, Normal Voice, Pharynx Normal, Nasal Congestion, Other (poor dentition - missing teeth) Respiratory: Yes: Normal Breath Sounds, No Respiratory Distress Neck: Yes: No masses,lesions,Nodules Breast: Yes: Breast Exam Deferred Cardiology: Yes: Regular Rhythm, Regular Rate Abdominal: Yes: Soft Genitourinary: Yes: Frequency Back: Yes: Normal Inspection Musculoskeletal: Yes: Gait Steady, Back pain, Joint Stiffness Extremities: Yes: Normal Inspection, Non-Tender, Tremors Neurological: Yes: Fully Oriented, Alert, Motor Strength 5/5, Normal Mood/Affect , Normal Response, Numbness Integumentary: Yes: Normal Color, Warm Lymphatic: Yes: Within Normal Limits - Diagnostic (1) Opioid dependence with withdrawal Current Visit: Yes Status: Chronic (2) Cannabis dependence Current Visit: Yes Status: Chronic (3) Cocaine dependence Current Visit: Yes Status: Chronic Qualifiers: Substance use status: uncomplicated Qualified Code(s): F14.20 - Cocaine dependence, uncomplicated (4) GERD (gastroesophageal reflux disease) Current Visit: Yes Status: Chronic Qualifiers: Esophagitis presence: esophagitis presence not specified Qualified Code(s) : K21.9 - Gastro-esophageal reflux disease without esophagitis (5) Low back pain Current Visit: Yes Status: Chronic Qualifiers: Chronicity: chronic Back pain laterality: unspecified Sciatica presence: unspecified whether sciatica present Qualified Code(s): M54.5 - Low back pain ; G89.29 - Other chronic pain (6) Nicotine dependence Current Visit: Yes Status: Chronic Qualifiers: Nicotine product type: cigarettes Substance use status: uncomplicated Qualified Code(s): F17.210 - Nicotine dependence, cigarettes, uncomplicated (7) Osteoarthritis of both knees Current Visit: Yes Status: Chronic Qualifiers: Osteoarthritis type: primary Qualified Code(s): M17.0 - Bilateral primary osteoarthritis of knee (8) Hepatitis C antibody positive in blood Current Visit: Yes Status: Chronic Comment: no viral load Cleared for Admission S - Detox or Rehab [facility] Level of Care: Medically Managed Detox Regimen/Protocol: Methadone Breathalyzer - Breathalyzer Breathalyzer: 0 POC Urine test - Test device test lot number: [id number] Expiration date: 07/30/20 - Control test control: Yes Urine Drug Screen - Test Device Lot number: [id number] Expiration date: 06/29/21 - Control Is test valid?: Yes - Results Drug screen NEGATIVE: No Urine drug screen results: THC-Marijuana, [place]-Cocaine, FEN-Fentanyl, MOP-Opiates , BUP-Suboxone Inpatient Rehab Admission - Rehab Decision to Admit Inpatient rehab admission?: No
[2019-10-29] MEDS ORDERED: cloNIDine HCL 0.1 MG TABLET PO PRN (09:38)
[2019-10-29] MEDS ORDERED: ACETAMINOPHEN 325 MG TABLET (FP) PO PRN (09:38)
[2019-10-29] MEDS ORDERED: METHADONE HCL 10 MG TABLET (FOR DETOX USE ONLY) PO ONE (09:38)
[2019-10-29] MEDS ORDERED: BISMUTH SUBSALICYLATE 524 MG/30 ML UD PO PRN (09:38)
[2019-10-29] MEDS ORDERED: MENTHOL/PHENOL 1 EACH UD MM PRN (09:38)
[2019-10-29] MEDS ORDERED: MAGNESIUM HYDROX 2400MG/30ML ORAL SUSPENSION 30 ML CUP PO PRN (09:38)
[2019-10-29] MEDS ORDERED: MAGNESIUM CITRATE 300 ML BOTTLE PO PRN (09:38)
[2019-10-29] MEDS ORDERED: ALBUTEROL SO4 8 GM HFA INHALER IH PRN (09:40)
[2019-10-29] MEDS ORDERED: QUEtiapine FUMARATE 50 MG TABLET PO ONE (10:00)
[2019-10-29] MEDS: METHYL SALICYLATE/MENTHOL OINT 30 GM TUBE TP SCH ×2 (11:25→23:38)
[2019-10-29] MEDS: PANTOPRAZOLE 40 MG TABLET (FP) PO SCH (11:26)
[2019-10-29] MEDS: NICOTINE 21 MG/24 HOURS TOPICAL PATCH TD SCH (11:26)
[2019-10-29] MEDS: PRENATAL VITAMINS W/ FOLIC ACID TABLET (FP) PO SCH (11:27)
[2019-10-29 12:30] LABS: HEMATOCRIT 39.2 % (32.4-45.2); HEMOGLOBIN 12.4 GM/dL (10.7-15.3); MCH 27.8 pg (25.7-33.7); MCHC 31.7 g/dl (32.0-36.0); MEAN CELL VOLUME 87.8 fl (80-96); MEAN PLT VOLUME 8.9 fl (7.5-11.1); PLATELET COUNT 345 K/MM3 (134-434); RBC 4.46 M/mm3 (3.60-5.2); RDW 14.4 % (11.6-15.6); WHITE BLOOD COUNT 11.1 K/mm3 (4.0-10.0)
[2019-10-29 12:37] LABS: ALBUMIN 3.7 g/dl (3.4-5.0); BILIRUBIN,TOTAL 0.2 mg/dL (0.2-1); BLOOD UREA NITROGEN 16.4 mg/dL (7-18); CALCIUM 9.5 mg/dL (8.5-10.1); CREATININE 0.7 mg/dL (0.55-1.3); TOT PROT 7.3 g/dl (6.4-8.2)
[2019-10-29] MEDS ORDERED: QUEtiapine FUMARATE 100 MG TABLET (FP) PO ONE (22:00)
[2019-10-29] MEDS: THIAMINE HCL 100 MG TABLET (FP) PO SCH (23:38)
[2019-10-30] MEDS ORDERED: METHADONE (DETOX) 20 MG, METHADONE (DETOX) 5 MG PO ONE (10:00)
[2019-10-30] MEDS ORDERED: METHADONE HCL 5 MG TABLET (FOR DETOX USE ONLY) ONE (10:10)
[2019-10-30] MEDS ORDERED: METHADONE HCL 10 MG TABLET (FOR DETOX USE ONLY) ONE (10:10)
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
[2019-10-30] MEDS: METHYL SALICYLATE/MENTHOL OINT 30 GM TUBE TP SCH ×2 (10:35→23:48)
[2019-10-30] MEDS: PRENATAL VITAMINS W/ FOLIC ACID TABLET (FP) PO SCH (10:36)
[2019-10-30] MEDS: ACETAMINOPHEN 325 MG TABLET (FP) PO PRN (10:36)
[2019-10-30] MEDS: PANTOPRAZOLE 40 MG TABLET (FP) PO SCH (10:36)
[2019-10-30] MEDS: NICOTINE 21 MG/24 HOURS TOPICAL PATCH TD SCH (10:37)
[2019-10-30] MEDS ORDERED: LIDOCAINE 5% TOPICAL PATCH TP SCH ×2 (13:30→15:00)
--- NOTE | 2019-10-30 13:32 | PN ---
BHS COWS - Scale Resting Pulse: 2= [place] 101-120 Sweatin= Chills/Flushing Restless Observation: 1= Difficult to Sit Still Pupil Size: 0= Normal to Room Light Bone or Joint Aches: 2= Severe Diffuse Aches Runny Nose/ Eye Tearin= Runny Nose/Eyes GI Upset > 30mins: 0= None Tremor Observation of Outstretched Hands: 2= Slight Tremor Visible Yawning Observation: 1= 1-2x During Session Anxiety or Irritability: 2=Irritable/Anxious Goose Flesh Skin: 0=Smooth Skin COWS Score: 13 BHS Progress Note (SOAP) Subjective: chronic body aches especially lower back and knees sweats chills interrupted sleep agitation Objective: 10/30/19 13:31 Vital Signs Temperature 98.1 F 10/30/19 10:33 Pulse Rate 115 H 10/30/19 10:33 Respiratory Rate 18 10/30/19 10:33 Blood Pressure 107/78 10/30/19 10:33 O2 Sat by Pulse Oximetry (%) Laboratory Tests 10/29/19 10/29/19 10:10 10:10 WBC 11.1 H RBC 4.46 Hgb 12.4 Hct 39.2 MCV 87.8 MCH 27.8 MCHC 31.7 L RDW 14.4 Plt Count 345 MPV 8.9 Sodium 139 Potassium 4.0 Chloride 103 Carbon Dioxide 30 Anion Gap 6 L BUN 16.4 Creatinine 0.7 Est GFR (CKD-EPI)AfAm 116.27 Est GFR (CKD-EPI)NonAf 100.32 Random Glucose 75 Calcium 9.5 Total Bilirubin 0.2 AST 11 L ALT 13 Alkaline Phosphatase 109 Total Protein 7.3 Albumin 3.7 labs noted aaox3 ambulating no acute distress Assessment: 10/30/19 13:32 withdrawals Plan: continue detox increase fluids lidocaine patch ordered
[2019-10-30] MEDS: LIDOCAINE 5% TOPICAL PATCH TP SCH ×2 (15:05→15:06)
[2019-10-30] MEDS: LIDOCAINE PATCH REMOVAL MC SCH ×2 (23:48)
[2019-10-30] MEDS: QUEtiapine FUMARATE 100 MG TABLET (FP) PO SCH (23:49)
[2019-10-30] MEDS: THIAMINE HCL 100 MG TABLET (FP) PO SCH (23:49)
[2019-10-31] MEDS ORDERED: METHADONE HCL 10 MG TABLET (FOR DETOX USE ONLY) PO ONE (10:00)
[2019-10-31] MEDS ORDERED: GABAPENTIN 100 MG CAPSULE (FP) PO ONE (10:15)
[2019-10-31] MEDS: QUEtiapine FUMARATE 50 MG TABLET PO SCH (10:29)
[2019-10-31] MEDS: PANTOPRAZOLE 40 MG TABLET (FP) PO SCH (10:29)
[2019-10-31] MEDS: METHYL SALICYLATE/MENTHOL OINT 30 GM TUBE TP SCH ×2 (10:30→22:19)
[2019-10-31] MEDS: LIDOCAINE 5% TOPICAL PATCH TP SCH ×3 (10:30→10:31)
[2019-10-31] MEDS: NICOTINE 21 MG/24 HOURS TOPICAL PATCH TD SCH (10:31)
[2019-10-31] MEDS: PRENATAL VITAMINS W/ FOLIC ACID TABLET (FP) PO SCH (10:31)
[2019-10-31] MEDS: ACETAMINOPHEN 325 MG TABLET (FP) PO PRN (10:33)
--- NOTE | 2019-10-31 11:15 | PN ---
BHS COWS - Scale Resting Pulse: 1= [place] 81-100 Sweatin= Chills/Flushing Restless Observation: 1= Difficult to Sit Still Pupil Size: 0= Normal to Room Light Bone or Joint Aches: 1= Mild Discomfort Runny Nose/ Eye Tearin= Nasal Congestion GI Upset > 30mins: 0= None Tremor Observation of Outstretched Hands: 1= Tremor [place], Not Seen Yawning Observation: 1= 1-2x During Session Anxiety or Irritability: 1=Feels Anxious/Irritable Goose Flesh Skin: 0=Smooth Skin COWS Score: 8 BHS Progress Note (SOAP) Subjective: agitation sweats knee pain Objective: 10/31/19 11:11 Vital Signs Temperature 98.4 F 10/31/19 09:31 Pulse Rate 86 10/31/19 09:31 Respiratory Rate 18 10/31/19 09:31 Blood Pressure 142/60 10/31/19 09:31 O2 Sat by Pulse Oximetry (%) Laboratory Tests 10/29/19 10/29/19 10:10 10:10 WBC 11.1 H RBC 4.46 Hgb 12.4 Hct 39.2 MCV 87.8 MCH 27.8 MCHC 31.7 L RDW 14.4 Plt Count 345 MPV 8.9 Sodium 139 Potassium 4.0 Chloride 103 Carbon Dioxide 30 Anion Gap 6 L BUN 16.4 Creatinine 0.7 Est GFR (CKD-EPI)AfAm 116.27 Est GFR (CKD-EPI)NonAf 100.32 Random Glucose 75 Calcium 9.5 Total Bilirubin 0.2 AST 11 L ALT 13 Alkaline Phosphatase 109 Total Protein 7.3 Albumin 3.7 aaox3 ambulating no acute distress Assessment: 10/31/19 11:12 withdrawals sx Plan: continue detox increase fluids continue with roboxin, lidocaine patch,analgesic balm
--- NOTE | 2019-10-31 12:01 | EKG ---
Test Reason : Blood Pressure : / mmHG Vent. Rate : 081 BPM Atrial Rate : 081 BPM P-R Int : 140 ms QRS Dur : 090 ms QT Int : 394 ms P-R-T Axes : 075 057 045 degrees QTc Int : 457 ms NORMAL SINUS RHYTHM POSSIBLE LEFT ATRIAL ENLARGEMENT LEFT VENTRICULAR HYPERTROPHY ABNORMAL ECG WHEN COMPARED WITH ECG OF 12-SEP-2019 08:45, NO SIGNIFICANT CHANGE WAS FOUND Confirmed by JOSE ANGEL ELLIOTT MD ([id number]) on 10/31/2019 12:00:46 PM Referred By: Confirmed By:JOSE ANGEL ELLIOTT MD
[2019-10-31] MEDS: GABAPENTIN 100 MG CAPSULE (FP) PO SCH ×2 (15:54→22:18)
[2019-10-31] MEDS: THIAMINE HCL 100 MG TABLET (FP) PO SCH (22:17)
[2019-10-31] MEDS: MELATONIN 5 MG TABLETS PO PRN (22:18)
[2019-10-31] MEDS: QUEtiapine FUMARATE 100 MG TABLET (FP) PO SCH (22:18)
[2019-10-31] MEDS: LIDOCAINE PATCH REMOVAL MC SCH ×2 (22:19)
[2019-10-31] MEDS: METHOCARBAMOL 500 MG TABLET PO PRN (22:20)
[2019-11-01] MEDS: GABAPENTIN 100 MG CAPSULE (FP) PO SCH ×3 (06:16→21:19)
[2019-11-01] MEDS ORDERED: GABAPENTIN 100 MG CAPSULE (FP) PO ONE (08:32)
[2019-11-01] MEDS ORDERED: AMMONIUM LACTATE 12% LOTION 225 GM BOTTLE TP PRN (08:38)
[2019-11-01] MEDS: METHOCARBAMOL 500 MG TABLET PO PRN (08:39)
[2019-11-01] MEDS: MAG HYDROX/AL HYDROX/SIMETH 30 ML UNIT-DOSE CUP PO PRN (09:01)
[2019-11-01] MEDS: IBUPROFEN 400 MG TABLET (FP) PO PRN (09:01)
[2019-11-01] MEDS ORDERED: METHADONE HCL 5 MG TABLET (FOR DETOX USE ONLY) ONE (09:18)
[2019-11-01] MEDS ORDERED: METHADONE HCL 10 MG TABLET (FOR DETOX USE ONLY) ONE (09:19)
[2019-11-01] MEDS ORDERED: METHADONE (DETOX) 10 MG, METHADONE (DETOX) 5 MG PO ONE (10:00)
[2019-11-01] MEDS: NICOTINE 21 MG/24 HOURS TOPICAL PATCH TD SCH (10:46)
[2019-11-01] MEDS: METHYL SALICYLATE/MENTHOL OINT 30 GM TUBE TP SCH ×2 (10:47→21:22)
[2019-11-01] MEDS: LIDOCAINE 5% TOPICAL PATCH TP SCH ×3 (10:47→10:48)
[2019-11-01] MEDS: PRENATAL VITAMINS W/ FOLIC ACID TABLET (FP) PO SCH (10:48)
[2019-11-01] MEDS: QUEtiapine FUMARATE 50 MG TABLET PO SCH (10:49)
[2019-11-01] MEDS: PANTOPRAZOLE 40 MG TABLET (FP) PO SCH (10:49)
--- NOTE | 2019-11-01 11:04 | PN ---
BHS COWS - Scale Resting Pulse: 1= [place] 81-100 Sweatin= Chills/Flushing Restless Observation: 1= Difficult to Sit Still Pupil Size: 0= Normal to Room Light Bone or Joint Aches: 2= Severe Diffuse Aches Runny Nose/ Eye Tearin= None GI Upset > 30mins: 0= None Tremor Observation of Outstretched Hands: 1= Tremor [place], Not Seen Yawning Observation: 1= 1-2x During Session Anxiety or Irritability: 2=Irritable/Anxious Goose Flesh Skin: 0=Smooth Skin COWS Score: 9 BHS Progress Note (SOAP) Subjective: restless anxiety agitation irritable body aches Objective: 11/01/19 11:03 Vital Signs Temperature 96.8 F L 11/01/19 09:37 Pulse Rate 100 H 11/01/19 09:37 Respiratory Rate 16 11/01/19 09:37 Blood Pressure 129/78 11/01/19 09:37 O2 Sat by Pulse Oximetry (%) Laboratory Tests 10/29/19 10/29/19 10/29/19 09:03 10:10 10:10 WBC 11.1 H RBC 4.46 Hgb 12.4 Hct 39.2 MCV 87.8 MCH 27.8 MCHC 31.7 L RDW 14.4 Plt Count 345 MPV 8.9 Sodium 139 Potassium 4.0 Chloride 103 Carbon Dioxide 30 Anion Gap 6 L BUN 16.4 Creatinine 0.7 Est GFR (CKD-EPI)AfAm 116.27 Est GFR (CKD-EPI)NonAf 100.32 Random Glucose 75 Calcium 9.5 Total Bilirubin 0.2 AST 11 L ALT 13 Alkaline Phosphatase 109 Total Protein 7.3 Albumin 3.7 POC Urine HCG, Qual Negative labs noted aaox3 ambulating no acute distress Assessment: 11/01/19 11:03 withdrawals Plan: continue detox increase fluids valium 10mg prn x 2 days
[2019-11-01] MEDS: diazePAM 5 MG TABLET PO PRN ×2 (11:38→21:19)
[2019-11-01] MEDS: MELATONIN 5 MG TABLETS PO PRN (21:19)
[2019-11-01] MEDS: QUEtiapine FUMARATE 100 MG TABLET (FP) PO SCH (21:19)
[2019-11-01] MEDS: THIAMINE HCL 100 MG TABLET (FP) PO SCH (21:22)
[2019-11-01] MEDS: LIDOCAINE PATCH REMOVAL MC SCH ×2 (21:22)
[2019-11-02] MEDS: GABAPENTIN 100 MG CAPSULE (FP) PO SCH ×3 (06:17→22:33)
[2019-11-02] MEDS ORDERED: METHADONE HCL 10 MG TABLET (FOR DETOX USE ONLY) PO ONE (10:00)
[2019-11-02] MEDS: PANTOPRAZOLE 40 MG TABLET (FP) PO SCH (10:50)
[2019-11-02] MEDS: NICOTINE 21 MG/24 HOURS TOPICAL PATCH TD SCH (10:51)
[2019-11-02] MEDS: QUEtiapine FUMARATE 50 MG TABLET PO SCH (10:51)
[2019-11-02] MEDS: PRENATAL VITAMINS W/ FOLIC ACID TABLET (FP) PO SCH (10:51)
[2019-11-02] MEDS: LIDOCAINE 5% TOPICAL PATCH TP SCH ×3 (10:52)
[2019-11-02] MEDS: diazePAM 5 MG TABLET PO PRN ×2 (10:54→22:38)
--- NOTE | 2019-11-02 10:55 | PN ---
BHS COWS - Scale Resting Pulse: 1= [place] 81-100 Sweatin= No chills or Flushing Restless Observation: 1= Difficult to Sit Still Pupil Size: 0= Normal to Room Light Bone or Joint Aches: 2= Severe Diffuse Aches Runny Nose/ Eye Tearin= None GI Upset > 30mins: 0= None Tremor Observation of Outstretched Hands: 0= None Yawning Observation: 1= 1-2x During Session Anxiety or Irritability: 1=Feels Anxious/Irritable Goose Flesh Skin: 0=Smooth Skin COWS Score: 6 BHS Progress Note (SOAP) Subjective: achy bones Objective: 11/02/19 10:54 Vital Signs Temperature 97.7 F 11/02/19 09:23 Pulse Rate 91 H 11/02/19 09:23 Respiratory Rate 18 11/02/19 09:23 Blood Pressure 142/74 11/02/19 09:23 O2 Sat by Pulse Oximetry (%) aaox3 ambulating no acute distress Assessment: 11/02/19 10:55 withdrawals Plan: continue detox motrin prn roboxin prn analgesic balm d/c in am
[2019-11-02] MEDS: METHYL SALICYLATE/MENTHOL OINT 30 GM TUBE TP SCH ×2 (10:58→22:35)
[2019-11-02] MEDS: MAG HYDROX/AL HYDROX/SIMETH 30 ML UNIT-DOSE CUP PO PRN (12:06)
[2019-11-02] MEDS: IBUPROFEN 400 MG TABLET (FP) PO PRN (19:49)
[2019-11-02] MEDS: THIAMINE HCL 100 MG TABLET (FP) PO SCH (22:33)
[2019-11-02] MEDS: QUEtiapine FUMARATE 100 MG TABLET (FP) PO SCH (22:33)
[2019-11-02] MEDS: MELATONIN 5 MG TABLETS PO PRN (22:34)
[2019-11-02] MEDS: LIDOCAINE PATCH REMOVAL MC SCH ×2 (22:43)
[2019-11-03] MEDS ORDERED: METHADONE HCL 5 MG TABLET (FOR DETOX USE ONLY) PO ONE (06:00)
[2019-11-03] MEDS: GABAPENTIN 100 MG CAPSULE (FP) PO SCH (06:27)
[2019-11-03] MEDS: IBUPROFEN 400 MG TABLET (FP) PO PRN (07:32)
[2019-11-03] MEDS: MAG HYDROX/AL HYDROX/SIMETH 30 ML UNIT-DOSE CUP PO PRN (07:33)
[2019-11-03] MEDS: QUEtiapine FUMARATE 50 MG TABLET PO SCH (09:06)
[2019-11-03] MEDS: PANTOPRAZOLE 40 MG TABLET (FP) PO SCH (09:06)
[2019-11-03] MEDS: METHYL SALICYLATE/MENTHOL OINT 30 GM TUBE TP SCH (09:07)
[2019-11-03] MEDS: LIDOCAINE 5% TOPICAL PATCH TP SCH ×3 (09:07→09:10)
[2019-11-03] MEDS: NICOTINE 21 MG/24 HOURS TOPICAL PATCH TD SCH (09:11)
[2019-11-03] MEDS: PRENATAL VITAMINS W/ FOLIC ACID TABLET (FP) PO SCH (09:11)
--- NOTE | 2019-11-03 09:11 | DS ---
[facility] Detox Discharge Summary Admission Date: 10/29/19 Discharge Date: 11/03/19 - History Present History: Cannabis Dependence, Cocaine Dependence, Opioid Dependence - Physical Exam Results Vital Signs: Vital Signs Temperature 97.5 F L 11/03/19 06:44 Pulse Rate 90 11/03/19 06:44 Respiratory Rate 18 11/03/19 06:44 Blood Pressure 155/74 11/03/19 06:44 O2 Sat by Pulse Oximetry (%) Pertinent Admission Physical Exam Findings: pt arrived in withdrawals Vital Signs Temperature 97.5 F L 11/03/19 06:44 Pulse Rate 90 11/03/19 06:44 Respiratory Rate 18 11/03/19 06:44 Blood Pressure 155/74 11/03/19 06:44 O2 Sat by Pulse Oximetry (%) Laboratory Tests 10/29/19 10/29/19 10/29/19 09:03 10:10 10:10 WBC 11.1 H RBC 4.46 Hgb 12.4 Hct 39.2 MCV 87.8 MCH 27.8 MCHC 31.7 L RDW 14.4 Plt Count 345 MPV 8.9 Sodium 139 Potassium 4.0 Chloride 103 Carbon Dioxide 30 Anion Gap 6 L BUN 16.4 Creatinine 0.7 Est GFR (CKD-EPI)AfAm 116.27 Est GFR (CKD-EPI)NonAf 100.32 Random Glucose 75 Calcium 9.5 Total Bilirubin 0.2 AST 11 L ALT 13 Alkaline Phosphatase 109 Total Protein 7.3 Albumin 3.7 POC Urine HCG, Qual Negative RPR Titer 10/29/19 10:10 WBC RBC Hgb Hct MCV MCH MCHC RDW Plt Count MPV Sodium Potassium Chloride Carbon Dioxide Anion Gap BUN Creatinine Est GFR (CKD-EPI)AfAm Est GFR (CKD-EPI)NonAf Random Glucose Calcium Total Bilirubin AST ALT Alkaline Phosphatase Total Protein Albumin POC Urine HCG, Qual RPR Titer Nonreactive pt is aaox3 ambulating no acute distress no s/s of withdrawals - Treatment Hospital Course: Detox Protocol Followed, Detoxed Safely, Responded well, Discharged Condition Good, Rehab Referral Accepted Patient has Accepted a Rehab Referral to: pt referred to [facility] inpatient rehab - Medication Discharge Medications: Ambulatory Orders Omeprazole 40 mg PO DAILY 02/27/17 Albuterol Sulfate Inhaler - [Ventolin HFA Inhaler -] 2 inh PO Q4H PRN #1 inhaler 10/10/18 Quetiapine Fumarate [Seroquel -] 50 mg PO DAILY 06/14/19 Quetiapine Fumarate [Seroquel -] 100 mg PO HS #30 tablet 08/15/19 - Diagnosis (1) Cannabis dependence Current Visit: Yes Status: Chronic (2) Cocaine dependence Current Visit: Yes Status: Chronic Qualifiers: Substance use status: uncomplicated Qualified Code(s): F14.20 - Cocaine dependence, uncomplicated (3) GERD (gastroesophageal reflux disease) Current Visit: Yes Status: Chronic Qualifiers: Esophagitis presence: esophagitis presence not specified Qualified Code(s) : K21.9 - Gastro-esophageal reflux disease without esophagitis (4) Hepatitis C antibody positive in blood Current Visit: Yes Status: Chronic (5) Low back pain Current Visit: Yes Status: Chronic Qualifiers: Chronicity: chronic Back pain laterality: unspecified Sciatica presence: unspecified whether sciatica present Qualified Code(s): M54.5 - Low back pain ; G89.29 - Other chronic pain (6) Mood disorder Current Visit: Yes Status: Chronic (7) Nicotine dependence Current Visit: Yes Status: Chronic Qualifiers: Nicotine product type: cigarettes Substance use status: uncomplicated Qualified Code(s): F17.210 - Nicotine dependence, cigarettes, uncomplicated (8) Opioid dependence with withdrawal Current Visit: Yes Status: Chronic (9) Osteoarthritis of both knees Current Visit: Yes Status: Chronic Qualifiers: Osteoarthritis type: primary Qualified Code(s): M17.0 - Bilateral primary osteoarthritis of knee (10) Depression Current Visit: No Status: Acute (11) Substance induced mood disorder Current Visit: No Status: Acute (12) Substance-induced sleep disorder Current Visit: No Status: Acute (13) History of bipolar disorder Current Visit: No Status: Chronic (14) Insomnia Current Visit: No Status: Chronic Qualifiers: Insomnia type: unspecified Qualified Code(s): G47.00 - Insomnia, unspecified (15) Carcinoma uterine cervix in situ Current Visit: No Status: Resolved Qualifiers: Carcinoma in situ of uterine cervix location: unspecified part of cervix Qualified Code(s): D06.9 - Carcinoma in situ of cervix, unspecified (16) Bipolar disorder Current Visit: No Status: Ruled-out - AMA Did Patient Leave Against Medical Advice: No
[2019-11-03 09:39] VITALS: BP 148/56; PULSE 104; TEMP 98.1
== END 2019-11-03 10:04 | disposition home or self-care (01) | DRG 773 ==
LOC: YASAS 08:03 → Y6N 09:57
PROVIDERS: ADMIT Allergy & Immunology; ATTEND Allergy & Immunology
PROC: HZ2ZZZZ Detoxification Services for Substance Abuse Treatment (ICD-10-PCS; principal; 2019-10-29)
DX: F11.23 Opioid dependence with withdrawal (principal); F14.20 Cocaine dependence, uncomplicated; F12.20 Cannabis dependence, uncomplicated; F17.210 Nicotine dependence, cigarettes, uncomplicated; F19.282 Other psychoactive substance dependence with psychoactive substance-induced sleep disorder; F19.24 Other psychoactive substance dependence with psychoactive substance-induced mood disorder; F39 Unspecified mood [affective] disorder; G47.00 Insomnia, unspecified; M17.0 Bilateral primary osteoarthritis of knee; M54.5 Low back pain; G89.29 Other chronic pain; B18.2 Chronic viral hepatitis C; Z86.59 Personal history of other mental and behavioral disorders; Z85.41 Personal history of malignant neoplasm of cervix uteri; Z88.8 Allergy status to other drugs, medicaments and biological substances
CPT/HCPCS: 36415; 80053; 81025; 85027; 86593; 93005; 93010; J0735

== ENCOUNTER 2019-11-20 10:02 | Inpatient (IN) | payer OTHER ==
[2019-11-20 11:05] VITALS: BMI 29.0
--- NOTE | 2019-11-20 12:22 | HP ---
COWS - Scale Resting Pulse: 0= [place] 80 or Below Sweatin= Chills/Flushing Restless Observation: 1= Difficult to Sit Still Pupil Size: 1= Pupils >than Normal Bone or Joint Aches: 1= Mild Discomfort Runny Nose/ Eye Tearin= Runny Nose/Eyes GI Upset > 30mins: 2= Nausea/Diarrhea Tremor Observation: 2= Slight Tremor Visible Yawning Observation: 1= 1-2x During Session Anxiety or Irritability: 2=Irritable/Anxious Goose Flesh Skin: 0=Smooth Skin COWS Score: 13 CIWA Score - Admission Criteria OASAS Guidelines: Admission for Medically Managed Detox: Requires at least one of the followin. CIWA greater than 12 2. Seizures within the past 24 hours 3. Delirium tremens within the past 24 hours 4. Hallucinations within the past 24 hours 5. Acute intervention needed for co occurring medical disorder 6. Acute intervention needed for co occurring psychiatric disorder 7. Severe withdrawal that cannot be handled at a lower level of care (continued vomiting, continued diarrhea, abnormal vital signs) requiring intravenous medication and/or fluids 8. Admitting History and Physical - Admission Chief Complaint: i need help to stop using heroin History of Present Illness: this 49 years old female with heroin dependence,also cocaine and mearijuana abused, seeking help, multiple admissions in detox,last 10/29/19 to 11/03/19 keep relapsing History Source: Patient - Past Medical History Cardiovascular: Yes: HTN Pulmonary: Yes: Asthma Gastrointestinal: Yes: Gastritis, GERD ...LMP: 09/20/19 ...: 6 ...Para: 6 Heme/Onc: Yes: Anemia Psych: Yes: Depression Musculoskeletal: Yes: Chronic low back pain, Osteoarthritis - Past Surgical History Past Surgical History: Yes: None - Smoking History Smoking history: Current every day smoker Have you smoked in the past 12 months: Yes Aproximately how many cigarettes per day: 20 - Alcohol/Substance Use History of Substance Use: reports: Cocaine, Heroin, Marijuana Date of Last Use: 10/28/19 - Social History Usual Living Arrangement: Yes: With Child Occupation: unemployed History of Recent Travel: No Other Social History: this 49 years old female with heroin dependence,[place] and cocaine abused,nicotine dependence,unemployed,htn,for detox Admission ROS BHS - HPI Chief Complaint: i need help to stop using heroin,also cocaine and marijuana abused Allergies/Adverse Reactions: Allergies Allergy/AdvReac Type Severity Reaction Status Date / Time chlordiazepoxide Allergy Severe Difficulty Verified 11/20/19 10:48 [From Librium] Breathing librium Allergy Severe Difficulty Uncoded 11/20/19 10:48 Breathing History of Present Illness: this 49 years old female with heroin dependence,cocaine and marijuana abused, multiple admissions ,last detox [facility] 10/29/19 to 23/04/19 keep relapsing history of hypertension, nicotine dependence unemployed living with daughter denied seizure denied syncope longest sobriety 7 months depression Exam Limitations: No Limitations - Ebola screening Have you traveled outside of the country in the last 21 days: No ([place]) Have you had contact with anyone from an Ebola affected area: No Do you have a fever: No - Review of Systems Constitutional: Chills, Loss of Appetite, Malaise, Night Sweats, Changes in sleep, Weakness EENT: reports: Tearing, Nose Congestion Respiratory: reports: Other (asthma) Cardiac: reports: No Symptoms Reported GI: reports: Nausea, Poor Appetite, Abdominal cramping : reports: No Symptoms Reported Integumentary: reports: Dryness Neuro: reports: Headache, Tremors Endocrine: reports: No Symptoms Reported Hematology: reports: No Symptoms Reported Psychiatric: reports: No Sypmtoms Reported, Judgement Intact, Mood/Affect Appropiate, Orientated x3, Depressed Patient History - Patient Medical History Hx Anemia: No Hx Asthma: Yes (on albuerol inhaler) Hx Chronic Obstructive Pulmonary Disease (COPD): No Hx Cancer: Yes (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) Hx Cardiac Disorders: No Hx Congestive Heart Failure: No Hx Hypertension: Yes Hx Hypercholesterolemia: No Hx Pacemaker: No HX Cerebrovascular Accident: No Hx Seizures: No Hx Dementia: No Hx Diabetes: No Hx Gastrointestinal Disorders: Yes (severe GERD) Hx Liver Disease: No Hx Genitourinary Disorders: No Hx Sexually Transmitted Disorders: No Hx Renal Disease (ESRD): No Hx Thyroid Disease: No Hx Human Immunodeficiency Virus (HIV): No (NEGATIVE HX last 02/15) Hx Hepatitis C: Yes (NO VIRAL LOAD) Hx Depression: Yes Hx Suicide Attempt: No Hx Bipolar Disorder: No Hx Schizophrenia: No Other Medical History: no suicidal,no homicidal - Patient Surgical History Past Surgical History: Yes Hx Neurologic Surgery: No Hx Cataract Extraction: No Hx Cardiac Surgery: No Hx Lung Surgery: No Hx Breast Surgery: No Hx Breast Biopsy: No Hx Abdominal Surgery: No Hx Appendectomy: No Hx Cholecystectomy: Yes (lap in 2006) Hx Genitourinary Surgery: Yes (carcinoma in situ s/p conization in 2013) Hx Section: No Hx Orthopedic Surgery: No Other Surgical History: Pt had a colposcopy. Anesthesia Reaction: No - PPD History Previous Implant?: Yes Documented Results: Negative w/proof Implanted On Prior [facility] Admission?: Yes Date: 10/31/19 Results: 0mm PPD to be Administered?: No - Reproductive History Patient is a Female of Child Bearing Age (11 -55 yrs old): Yes Last Menstrual Period: 09/20/19 Patient : No - Smoking Cessation Smoking history: Current every day smoker Have you smoked in the past 12 months: Yes Aproximately how many cigarettes per day: 10 Cigars Per Day: 0 Hx Chewing Tobacco Use: No Initiated information on smoking cessation: Yes 'Breaking Loose' booklet given: 11/20/19 - Substance & Tx. History Hx Substance Use: Yes Substance Use Type: Cocaine, Heroin, Marijuana Hx Substance Use Treatment: Yes ([facility] 10/29/19 to 11/03/19) - Substances abused Heroin Substance route: Inhalation Frequency: Daily Amount used: 9-10 bags Age of first use: 30 Date of last use: 11/20/19 Cocaine Substance route: Smoking Frequency: 1-2 times per week Amount used: "3 pulls of it" Age of first use: 30 Date of last use: 11/17/19 Alcohol Substance route: Oral Frequency: 1-3 times last 30 days Amount used: 2 beers Age of first use: 47 Date of last use: 03/05/19 Marijuana/Hashish Substance route: Smoking Frequency: 1-2 times per week Amount used: 5$ Age of first use: 13 Date of last use: 11/19/19 Alprazolam (Xanax) Substance route: Oral Frequency: 1-3 times last 30 days Amount used: 2mgs Age of first use: 48 Date of last use: 03/06/19 Other Other (specify): suboxone Substance route: Oral Frequency: 1-3 times last 30 days Amount used: 2mg Age of first use: 47 Date of last use: 10/25/19 Admission Physical Exam BHS - Vital Signs Vital Signs: Vital Signs - 24 hr 11/20/19 11/20/19 10:47 11:12 Temperature 97.8 F 97.8 F Pulse Rate 66 66 Respiratory 18 18 Rate Blood Pressure 113/70 113/70 - Physical General Appearance: Yes: Moderate Distress, Tremorous, Irritable, Sweating, Anxious HEENTM: Yes: Normal ENT Inspection, ANGEL, Pharynx Normal, Other (no upper teeth) Respiratory: Yes: Lungs Clear, Normal Breath Sounds, No Respiratory Distress Neck: Yes: Within Normal Limits, Supple, Trachea in good position Breast: Yes: Breast Exam Deferred Cardiology: Yes: Regular Rhythm, Regular Rate, S1, S2, Edema Abdominal: Yes: Normal Bowel Sounds, Non Tender, Soft Genitourinary: Yes: Within Normal Limits Back: Yes: Within Normal Limits Musculoskeletal: Yes: Back pain, Muscle Pain Extremities: Yes: Tremors 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 intact, Fully Oriented, Alert, Motor Strength 5/5 Integumentary: Yes: Dry Lymphatic: Yes: Within Normal Limits - Diagnostic (1) Opioid dependence with withdrawal Current Visit: No Status: Chronic (2) Asthma Current Visit: No Status: Acute (3) Cannabis dependence Current Visit: No Status: Chronic (4) Cocaine dependence Current Visit: No Status: Chronic Qualifiers: Substance use status: uncomplicated Qualified Code(s): F14.20 - Cocaine dependence, uncomplicated (5) GERD (gastroesophageal reflux disease) Current Visit: No Status: Chronic Qualifiers: Esophagitis presence: esophagitis presence not specified Qualified Code(s) : K21.9 - Gastro-esophageal reflux disease without esophagitis (6) Insomnia Current Visit: No Status: Chronic Qualifiers: Insomnia type: unspecified Qualified Code(s): G47.00 - Insomnia, unspecified (7) Low back pain Current Visit: No Status: Chronic Qualifiers: Chronicity: chronic Back pain laterality: unspecified Sciatica presence: unspecified whether sciatica present Qualified Code(s): M54.5 - Low back pain ; G89.29 - Other chronic pain (8) Carcinoma uterine cervix in situ Current Visit: No Status: Resolved Qualifiers: Carcinoma in situ of uterine cervix location: unspecified part of cervix Qualified Code(s): D06.9 - Carcinoma in situ of cervix, unspecified (9) Depression Current Visit: No Status: Acute Cleared for Admission [facility] - Detox or Rehab [facility] Level of Care: Medically Managed Detox Regimen/Protocol: Methadone Breathalyzer - Breathalyzer Breathalyzer: 0 POC Urine test - Test device test lot number: [id number] Expiration date: 07/30/20 - Control test control: Yes Urine Drug Screen - Test Device Lot number: [id number] Expiration date: 06/29/21 - Control Is test valid?: Yes - Results Drug screen NEGATIVE: No Urine drug screen results: THC-Marijuana, [place]-Cocaine, FEN-Fentanyl, MOP-Opiates , BZO-Benzodiazepines, BUP-Suboxone Inpatient Rehab Admission - Rehab Decision to Admit Inpatient rehab admission?: No
[2019-11-20] MEDS ORDERED: BISMUTH SUBSALICYLATE 524 MG/30 ML UD PO PRN (12:44)
[2019-11-20] MEDS ORDERED: MAGNESIUM HYDROX 2400MG/30ML ORAL SUSPENSION 30 ML CUP PO PRN (12:44)
[2019-11-20] MEDS ORDERED: METHADONE HCL 10 MG TABLET (FOR DETOX USE ONLY) PO ONE (12:44)
[2019-11-20] MEDS ORDERED: ACETAMINOPHEN 325 MG TABLET (FP) PO PRN (12:44)
[2019-11-20] MEDS ORDERED: MAGNESIUM CITRATE 300 ML BOTTLE PO PRN (12:44)
[2019-11-20] MEDS ORDERED: cloNIDine HCL 0.1 MG TABLET PO PRN (12:44)
[2019-11-20] MEDS ORDERED: NICOTINE POLACRILEX 2 MG GUM BUC PRN (12:44)
[2019-11-20] MEDS ORDERED: MENTHOL/PHENOL 1 EACH UD MM PRN (12:44)
[2019-11-20] MEDS ORDERED: ALBUTEROL SO4 8 GM HFA INHALER IH PRN (12:47)
[2019-11-20] MEDS: NICOTINE 21 MG/24 HOURS TOPICAL PATCH TD SCH (13:45)
[2019-11-20] MEDS: FAMOTIDINE 20 MG TABLET PO SCH (13:46)
[2019-11-20] MEDS: ACETAMINOPHEN 325 MG TABLET (FP) PO PRN (16:31)
[2019-11-20] MEDS: diazePAM 5 MG TABLET PO PRN (17:49)
[2019-11-20] MEDS: QUEtiapine FUMARATE 100 MG TABLET (FP) PO SCH (22:54)
[2019-11-20] MEDS: MAG HYDROX/AL HYDROX/SIMETH 30 ML UNIT-DOSE CUP PO PRN (22:54)
[2019-11-20] MEDS: THIAMINE HCL 100 MG TABLET (FP) PO SCH (22:54)
[2019-11-21] MEDS ORDERED: METHADONE HCL 10 MG TABLET (FOR DETOX USE ONLY) ONE (08:55)
[2019-11-21] MEDS ORDERED: METHADONE HCL 5 MG TABLET (FOR DETOX USE ONLY) ONE (08:55)
[2019-11-21] MEDS ORDERED: METHADONE (DETOX) 20 MG, METHADONE (DETOX) 5 MG PO ONE (10:00)
--- NOTE | 2019-11-21 10:01 | PN ---
BHS COWS - Scale Resting Pulse: 0= [place] 80 or Below Sweatin= Chills/Flushing Restless Observation: 0= Sits Still Pupil Size: 1= Pupils >than Normal Bone or Joint Aches: 1= Mild Discomfort Runny Nose/ Eye Tearin= Runny Nose/Eyes GI Upset > 30mins: 2= Nausea/Diarrhea Tremor Observation of Outstretched Hands: 1= Tremor [place], Not Seen Yawning Observation: 0= None Anxiety or Irritability: 1=Feels Anxious/Irritable Goose Flesh Skin: 3=Piloerection COWS Score: 12 BHS Progress Note (SOAP) Subjective: 49 years old female admitted on 11/20/19 for opiate withdrawal sx management treating with methadone detox regimen ate breakfast ambulating on hallway social with peers in day room discuss 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
[2019-11-21] MEDS: NICOTINE 21 MG/24 HOURS TOPICAL PATCH TD SCH (10:24)
[2019-11-21] MEDS: PRENATAL VITAMINS W/ FOLIC ACID TABLET (FP) PO SCH (10:24)
[2019-11-21] MEDS: QUEtiapine FUMARATE 50 MG TABLET PO SCH (10:24)
[2019-11-21] MEDS: FAMOTIDINE 20 MG TABLET PO SCH (10:25)
[2019-11-21] MEDS: diazePAM 5 MG TABLET PO PRN ×2 (10:26→22:36)
[2019-11-21] MEDS: ACETAMINOPHEN 325 MG TABLET (FP) PO PRN (10:27)
[2019-11-21] MEDS: METHOCARBAMOL 500 MG TABLET PO PRN ×2 (10:28→22:36)
[2019-11-21 10:40] LABS: HEMATOCRIT 36.5 % (32.4-45.2); HEMOGLOBIN 11.8 GM/dL (10.7-15.3); MCH 28.1 pg (25.7-33.7); MCHC 32.3 g/dl (32.0-36.0); MEAN CELL VOLUME 87.1 fl (80-96); MEAN PLT VOLUME 9.6 fl (7.5-11.1); PLATELET COUNT 275 K/MM3 (134-434); RBC 4.19 M/mm3 (3.60-5.2); RDW 14.6 % (11.6-15.6); WHITE BLOOD COUNT 8.1 K/mm3 (4.0-10.0)
[2019-11-21 10:41] LABS: ALBUMIN 3.2 g/dl (3.4-5.0); BILIRUBIN,TOTAL 0.2 mg/dL (0.2-1); BLOOD UREA NITROGEN 17.5 mg/dL (7-18); CALCIUM 8.3 mg/dL (8.5-10.1); CREATININE 0.6 mg/dL (0.55-1.3); POTASSIUM 4.4 mmol/L (3.5-5.1); TOT PROT 6.3 g/dl (6.4-8.2)
[2019-11-21] MEDS ORDERED: COLLOIDAL OATMEAL 1 BAR EACH TP PRN (11:59)
[2019-11-21] MEDS: AMMONIUM LACTATE 12% LOTION 225 GM BOTTLE TP SCH ×2 (15:11→22:34)
[2019-11-21 16:28] LABS: EPI CELLS 15.5 /HPF (0-5/HPF); HYALINE CASTS 10 /lpf (0-8); PH,URINE 5.5 (5.0-8.0); URINE APPEARANCE TURBID; URINE BACTERIA 221.3 /hpf (NEGATIVE); URINE BILIRUBIN NEGATIVE (NEGATIVE); URINE COLOR YELLOW; URINE GLUCOSE (UA) NEGATIVE (NEGATIVE); URINE KETONE NEGATIVE (NEGATIVE); URINE LEUK ESTERASE 1+ (NEGATIVE); URINE NITRITE NEGATIVE (NEGATIVE); URINE PROTEIN NEGATIVE (NEGATIVE); URINE RBC 1 /hpf (0-4); URINE UROBILINOGEN 0.2 mg/dL (0.2-1.0); URINE WBC 54 /hpf (0-5)
[2019-11-21] MEDS: LIDOCAINE PATCH REMOVAL MC SCH (22:34)
[2019-11-21] MEDS: THIAMINE HCL 100 MG TABLET (FP) PO SCH (22:35)
[2019-11-21] MEDS: QUEtiapine FUMARATE 100 MG TABLET (FP) PO SCH (22:35)
[2019-11-21] MEDS: MELATONIN 5 MG TABLETS PO PRN (22:38)
[2019-11-22] MEDS: ACETAMINOPHEN 325 MG TABLET (FP) PO PRN ×2 (06:19→11:28)
[2019-11-22] MEDS ORDERED: METHADONE HCL 10 MG TABLET (FOR DETOX USE ONLY) PO ONE (10:00)
[2019-11-22] MEDS: METHOCARBAMOL 500 MG TABLET PO PRN ×2 (10:19→22:29)
[2019-11-22] MEDS: NICOTINE 21 MG/24 HOURS TOPICAL PATCH TD SCH (10:19)
[2019-11-22] MEDS: PRENATAL VITAMINS W/ FOLIC ACID TABLET (FP) PO SCH (10:19)
[2019-11-22] MEDS: diazePAM 5 MG TABLET PO PRN ×2 (10:19→22:28)
[2019-11-22] MEDS: QUEtiapine FUMARATE 50 MG TABLET PO SCH (10:19)
[2019-11-22] MEDS: FAMOTIDINE 20 MG TABLET PO SCH (10:19)
[2019-11-22] MEDS: AMMONIUM LACTATE 12% LOTION 225 GM BOTTLE TP SCH ×2 (10:20→23:17)
[2019-11-22] MEDS: LIDOCAINE 5% TOPICAL PATCH TP SCH (10:20)
--- NOTE | 2019-11-22 11:32 | PN ---
BHS COWS - Scale Resting Pulse: 0= [place] 80 or Below Sweatin= Chills/Flushing Restless Observation: 0= Sits Still Pupil Size: 1= Pupils >than Normal Bone or Joint Aches: 1= Mild Discomfort Runny Nose/ Eye Tearin= Nasal Congestion GI Upset > 30mins: 1= Stomach Cramp Tremor Observation of Outstretched Hands: 1= Tremor [place], Not Seen Yawning Observation: 2= >3x During Session Anxiety or Irritability: 1=Feels Anxious/Irritable Goose Flesh Skin: 0=Smooth Skin COWS Score: 9 BHS Progress Note (SOAP) Subjective: 49 years old female admitted on 11/20/19 for opiate withdrawal sx management treating with methadone detox regimen c/o itchy and frequency of urination Objective: 11/22/19 11:52 Vital Signs Temperature 96.1 F L 11/22/19 09:07 Pulse Rate 78 11/22/19 09:07 Respiratory Rate 18 11/22/19 09:07 Blood Pressure 121/58 L 11/22/19 09:07 O2 Sat by Pulse Oximetry (%) Laboratory Last Values WBC 8.1 K/mm3 (4.0-10.0) 11/21/19 07:45 RBC 4.19 M/mm3 (3.60-5.2) 11/21/19 07:45 Hgb 11.8 GM/dL (10.7-15.3) 11/21/19 07:45 Hct 36.5 % (32.4-45.2) 11/21/19 07:45 MCV 87.1 fl (80-96) 11/21/19 07:45 MCH 28.1 pg (25.7-33.7) 11/21/19 07:45 MCHC 32.3 g/dl (32.0-36.0) 11/21/19 07:45 RDW 14.6 % (11.6-15.6) 11/21/19 07:45 Plt Count 275 K/MM3 (134-434) D 11/21/19 07:45 MPV 9.6 fl (7.5-11.1) 11/21/19 07:45 Sodium 138 mmol/L (136-145) 11/21/19 07:45 Potassium 4.4 mmol/L (3.5-5.1) 11/21/19 07:45 Chloride 107 mmol/L (98-107) 11/21/19 07:45 Carbon Dioxide 27 mmol/L (21-32) 11/21/19 07:45 Anion Gap 4 MMOL/L (8-16) L 11/21/19 07:45 BUN 17.5 mg/dL (7-18) 11/21/19 07:45 Creatinine 0.6 mg/dL (0.55-1.3) 11/21/19 07:45 Est GFR (CKD-EPI)AfAm 122.32 11/21/19 07:45 Est GFR (CKD-EPI)NonAf 105.54 11/21/19 07:45 Random Glucose 95 mg/dL (74-106) 11/21/19 07:45 Calcium 8.3 mg/dL (8.5-10.1) L 11/21/19 07:45 Total Bilirubin 0.2 mg/dL (0.2-1) 11/21/19 07:45 AST 8 U/L (15-37) L 11/21/19 07:45 ALT 13 U/L (13-61) 11/21/19 07:45 Alkaline Phosphatase 77 U/L (45-117) 11/21/19 07:45 Total Protein 6.3 g/dl (6.4-8.2) L 11/21/19 07:45 Albumin 3.2 g/dl (3.4-5.0) L 11/21/19 07:45 Urine Color Yellow 11/21/19 13:52 Urine Appearance Turbid 11/21/19 13:52 Urine pH 5.5 (5.0-8.0) 11/21/19 13:52 Ur Specific [place] 1.028 (1.010-1.035) 11/21/19 13:52 Urine Protein Negative (NEGATIVE) 11/21/19 13:52 Urine Glucose (UA) Negative (NEGATIVE) 11/21/19 13:52 Urine Ketones Negative (NEGATIVE) 11/21/19 13:52 Urine Blood Negative (NEGATIVE) 11/21/19 13:52 Urine Nitrite Negative (NEGATIVE) 11/21/19 13:52 Urine Bilirubin Negative (NEGATIVE) 11/21/19 13:52 Urine Urobilinogen 0.2 mg/dL (0.2-1.0) 11/21/19 13:52 Ur Leukocyte Esterase 1+ (NEGATIVE) H 11/21/19 13:52 Urine WBC (Auto) 54 /hpf (0-5) 11/21/19 13:52 Urine RBC (Auto) 1 /hpf (0-4) 11/21/19 13:52 Urine Casts (Auto) 10 /lpf (0-8) 11/21/19 13:52 U Epithel Cells (Auto) 15.5 /HPF (0-5/HPF) 11/21/19 13:52 Urine Bacteria (Auto) 221.3 /hpf (NEGATIVE) 11/21/19 13:52 RPR Titer Nonreactive (NONREACTIVE) 11/21/19 07:45 lab noted ua positive leukocyte without hemeturia with casts of 10/hpf and bacteria 221.3/ hpf begin bactrim ds bid x 5 days encourage the patient to drink 2-3L of oral fluid daily 11/22/19 11:53 Assessment: 11/22/19 11:55 opiate withdrawal Plan: methadone regimen
[2019-11-22] MEDS: SULFAMETHOXAZOLE/TRIMETHOPRIM 800MG/160MG D.S. TABLET PO SCH ×2 (13:04→22:28)
[2019-11-22] MEDS: THIAMINE HCL 100 MG TABLET (FP) PO SCH (22:28)
[2019-11-22] MEDS: QUEtiapine FUMARATE 100 MG TABLET (FP) PO SCH (22:28)
[2019-11-22] MEDS: MELATONIN 5 MG TABLETS PO PRN (22:29)
[2019-11-22] MEDS: LIDOCAINE PATCH REMOVAL MC SCH (23:17)
[2019-11-23] MEDS: IBUPROFEN 400 MG TABLET (FP) PO PRN (04:47)
[2019-11-23] MEDS ORDERED: METHADONE HCL 10 MG TABLET (FOR DETOX USE ONLY) ONE (08:28)
[2019-11-23] MEDS ORDERED: METHADONE HCL 5 MG TABLET (FOR DETOX USE ONLY) ONE (08:29)
[2019-11-23] MEDS: PRENATAL VITAMINS W/ FOLIC ACID TABLET (FP) PO SCH (09:16)
[2019-11-23] MEDS: SULFAMETHOXAZOLE/TRIMETHOPRIM 800MG/160MG D.S. TABLET PO SCH ×2 (09:16→22:25)
[2019-11-23] MEDS: diazePAM 5 MG TABLET PO PRN (09:16)
[2019-11-23] MEDS: FAMOTIDINE 20 MG TABLET PO SCH (09:16)
[2019-11-23] MEDS: METHOCARBAMOL 500 MG TABLET PO PRN ×2 (09:16→22:27)
[2019-11-23] MEDS: QUEtiapine FUMARATE 50 MG TABLET PO SCH (09:17)
[2019-11-23] MEDS: NICOTINE 21 MG/24 HOURS TOPICAL PATCH TD SCH (09:17)
[2019-11-23] MEDS: LIDOCAINE 5% TOPICAL PATCH TP SCH (09:17)
[2019-11-23] MEDS: AMMONIUM LACTATE 12% LOTION 225 GM BOTTLE TP SCH ×2 (09:18→22:26)
[2019-11-23] MEDS ORDERED: METHADONE (DETOX) 10 MG, METHADONE (DETOX) 5 MG PO ONE (10:00)
--- NOTE | 2019-11-23 12:45 | PN ---
BHS COWS - Scale Resting Pulse: 1= [place] 81-100 Sweatin= Chills/Flushing Restless Observation: 0= Sits Still Pupil Size: 1= Pupils >than Normal Bone or Joint Aches: 1= Mild Discomfort Runny Nose/ Eye Tearin= None GI Upset > 30mins: 1= Stomach Cramp Tremor Observation of Outstretched Hands: 0= None Yawning Observation: 0= None Anxiety or Irritability: 1=Feels Anxious/Irritable Goose Flesh Skin: 0=Smooth Skin COWS Score: 6 BHS Progress Note (SOAP) Subjective: 49 years old female admitted on 11/20/19 for opiate withdrawal sx management treating with methadone detox regimen discussed medication assisted treatment program and benefits of maintenance associated with behavioral and psychosocial therapies Objective: 11/23/19 12:44 Vital Signs Temperature 97.5 F L 11/23/19 09:24 Pulse Rate 87 11/23/19 09:24 Respiratory Rate 18 11/23/19 09:24 Blood Pressure 119/64 11/23/19 09:24 O2 Sat by Pulse Oximetry (%) Laboratory Last Values WBC 8.1 K/mm3 (4.0-10.0) 11/21/19 07:45 RBC 4.19 M/mm3 (3.60-5.2) 11/21/19 07:45 Hgb 11.8 GM/dL (10.7-15.3) 11/21/19 07:45 Hct 36.5 % (32.4-45.2) 11/21/19 07:45 MCV 87.1 fl (80-96) 11/21/19 07:45 MCH 28.1 pg (25.7-33.7) 11/21/19 07:45 MCHC 32.3 g/dl (32.0-36.0) 11/21/19 07:45 RDW 14.6 % (11.6-15.6) 11/21/19 07:45 Plt Count 275 K/MM3 (134-434) D 11/21/19 07:45 MPV 9.6 fl (7.5-11.1) 11/21/19 07:45 Sodium 138 mmol/L (136-145) 11/21/19 07:45 Potassium 4.4 mmol/L (3.5-5.1) 11/21/19 07:45 Chloride 107 mmol/L (98-107) 11/21/19 07:45 Carbon Dioxide 27 mmol/L (21-32) 11/21/19 07:45 Anion Gap 4 MMOL/L (8-16) L 11/21/19 07:45 BUN 17.5 mg/dL (7-18) 11/21/19 07:45 Creatinine 0.6 mg/dL (0.55-1.3) 11/21/19 07:45 Est GFR (CKD-EPI)AfAm 122.32 11/21/19 07:45 Est GFR (CKD-EPI)NonAf 105.54 11/21/19 07:45 Random Glucose 95 mg/dL (74-106) 11/21/19 07:45 Calcium 8.3 mg/dL (8.5-10.1) L 11/21/19 07:45 Total Bilirubin 0.2 mg/dL (0.2-1) 11/21/19 07:45 AST 8 U/L (15-37) L 11/21/19 07:45 ALT 13 U/L (13-61) 11/21/19 07:45 Alkaline Phosphatase 77 U/L (45-117) 11/21/19 07:45 Total Protein 6.3 g/dl (6.4-8.2) L 11/21/19 07:45 Albumin 3.2 g/dl (3.4-5.0) L 11/21/19 07:45 Urine Color Yellow 11/21/19 13:52 Urine Appearance Turbid 11/21/19 13:52 Urine pH 5.5 (5.0-8.0) 11/21/19 13:52 Ur Specific [place] 1.028 (1.010-1.035) 11/21/19 13:52 Urine Protein Negative (NEGATIVE) 11/21/19 13:52 Urine Glucose (UA) Negative (NEGATIVE) 11/21/19 13:52 Urine Ketones Negative (NEGATIVE) 11/21/19 13:52 Urine Blood Negative (NEGATIVE) 11/21/19 13:52 Urine Nitrite Negative (NEGATIVE) 11/21/19 13:52 Urine Bilirubin Negative (NEGATIVE) 11/21/19 13:52 Urine Urobilinogen 0.2 mg/dL (0.2-1.0) 11/21/19 13:52 Ur Leukocyte Esterase 1+ (NEGATIVE) H 11/21/19 13:52 Urine WBC (Auto) 54 /hpf (0-5) 11/21/19 13:52 Urine RBC (Auto) 1 /hpf (0-4) 11/21/19 13:52 Urine Casts (Auto) 10 /lpf (0-8) 11/21/19 13:52 U Epithel Cells (Auto) 15.5 /HPF (0-5/HPF) 11/21/19 13:52 Urine Bacteria (Auto) 221.3 /hpf (NEGATIVE) 11/21/19 13:52 RPR Titer Nonreactive (NONREACTIVE) 11/21/19 07:45 HIV 1&2 Antibody Screen Negative 11/22/19 09:00 HIV P24 Antigen Negative 11/22/19 09:00 lab noted uti continue bactrim ds bid Assessment: 11/23/19 12:45 opiate withdrawal Plan: methadone regimen
[2019-11-23] MEDS: hydrOXYzine PAMOATE 25 MG CAPSULE (FP) PO PRN (13:12)
[2019-11-23] MEDS: THIAMINE HCL 100 MG TABLET (FP) PO SCH (22:25)
[2019-11-23] MEDS: QUEtiapine FUMARATE 100 MG TABLET (FP) PO SCH (22:26)
[2019-11-23] MEDS: MELATONIN 5 MG TABLETS PO PRN (22:27)
[2019-11-24] MEDS: LIDOCAINE PATCH REMOVAL MC SCH ×2 (00:23→22:16)
[2019-11-24] MEDS: ACETAMINOPHEN 325 MG TABLET (FP) PO PRN (08:01)
--- NOTE | 2019-11-24 09:27 | PN ---
BHS COWS - Scale Resting Pulse: 1= [place] 81-100 Sweatin= Chills/Flushing Restless Observation: 0= Sits Still Pupil Size: 0= Normal to Room Light Bone or Joint Aches: 0= None Runny Nose/ Eye Tearin= None GI Upset > 30mins: 1= Stomach Cramp Tremor Observation of Outstretched Hands: 0= None Yawning Observation: 0= None Anxiety or Irritability: 1=Feels Anxious/Irritable Goose Flesh Skin: 0=Smooth Skin COWS Score: 4 BHS Progress Note (SOAP) Subjective: 49 years old female admitted on 11/20/19 for opiate withdrawal sx management treating with methadone detox regimen feeling better slept through the night ate breakfast social with peers in day room Objective: 11/24/19 09:25 Vital Signs Temperature 98.5 F 11/24/19 06:21 Pulse Rate 84 11/24/19 06:21 Respiratory Rate 18 11/24/19 06:21 Blood Pressure 100/50 L 11/24/19 06:21 O2 Sat by Pulse Oximetry (%) Laboratory Last Values WBC 8.1 K/mm3 (4.0-10.0) 11/21/19 07:45 RBC 4.19 M/mm3 (3.60-5.2) 11/21/19 07:45 Hgb 11.8 GM/dL (10.7-15.3) 11/21/19 07:45 Hct 36.5 % (32.4-45.2) 11/21/19 07:45 MCV 87.1 fl (80-96) 11/21/19 07:45 MCH 28.1 pg (25.7-33.7) 11/21/19 07:45 MCHC 32.3 g/dl (32.0-36.0) 11/21/19 07:45 RDW 14.6 % (11.6-15.6) 11/21/19 07:45 Plt Count 275 K/MM3 (134-434) D 11/21/19 07:45 MPV 9.6 fl (7.5-11.1) 11/21/19 07:45 Sodium 138 mmol/L (136-145) 11/21/19 07:45 Potassium 4.4 mmol/L (3.5-5.1) 11/21/19 07:45 Chloride 107 mmol/L (98-107) 11/21/19 07:45 Carbon Dioxide 27 mmol/L (21-32) 11/21/19 07:45 Anion Gap 4 MMOL/L (8-16) L 11/21/19 07:45 BUN 17.5 mg/dL (7-18) 11/21/19 07:45 Creatinine 0.6 mg/dL (0.55-1.3) 11/21/19 07:45 Est GFR (CKD-EPI)AfAm 122.32 11/21/19 07:45 Est GFR (CKD-EPI)NonAf 105.54 11/21/19 07:45 Random Glucose 95 mg/dL (74-106) 11/21/19 07:45 Calcium 8.3 mg/dL (8.5-10.1) L 11/21/19 07:45 Total Bilirubin 0.2 mg/dL (0.2-1) 11/21/19 07:45 AST 8 U/L (15-37) L 11/21/19 07:45 ALT 13 U/L (13-61) 11/21/19 07:45 Alkaline Phosphatase 77 U/L (45-117) 11/21/19 07:45 Total Protein 6.3 g/dl (6.4-8.2) L 11/21/19 07:45 Albumin 3.2 g/dl (3.4-5.0) L 11/21/19 07:45 Urine Color Yellow 11/21/19 13:52 Urine Appearance Turbid 11/21/19 13:52 Urine pH 5.5 (5.0-8.0) 11/21/19 13:52 Ur Specific [place] 1.028 (1.010-1.035) 11/21/19 13:52 Urine Protein Negative (NEGATIVE) 11/21/19 13:52 Urine Glucose (UA) Negative (NEGATIVE) 11/21/19 13:52 Urine Ketones Negative (NEGATIVE) 11/21/19 13:52 Urine Blood Negative (NEGATIVE) 11/21/19 13:52 Urine Nitrite Negative (NEGATIVE) 11/21/19 13:52 Urine Bilirubin Negative (NEGATIVE) 11/21/19 13:52 Urine Urobilinogen 0.2 mg/dL (0.2-1.0) 11/21/19 13:52 Ur Leukocyte Esterase 1+ (NEGATIVE) H 11/21/19 13:52 Urine WBC (Auto) 54 /hpf (0-5) 11/21/19 13:52 Urine RBC (Auto) 1 /hpf (0-4) 11/21/19 13:52 Urine Casts (Auto) 10 /lpf (0-8) 11/21/19 13:52 U Epithel Cells (Auto) 15.5 /HPF (0-5/HPF) 11/21/19 13:52 Urine Bacteria (Auto) 221.3 /hpf (NEGATIVE) 11/21/19 13:52 RPR Titer Nonreactive (NONREACTIVE) 11/21/19 07:45 HIV 1&2 Antibody Screen Negative 11/22/19 09:00 HIV P24 Antigen Negative 11/22/19 09:00 lab noted uti continue bactrim ds bid no adverse reactions noted reports feeling better today agrees increase oral fluid Assessment: 11/24/19 09:27 opiate withdrawal Plan: methadone regimen
[2019-11-24] MEDS ORDERED: METHADONE HCL 10 MG TABLET (FOR DETOX USE ONLY) PO ONE (10:00)
[2019-11-24] MEDS: FAMOTIDINE 20 MG TABLET PO SCH (10:17)
[2019-11-24] MEDS: SULFAMETHOXAZOLE/TRIMETHOPRIM 800MG/160MG D.S. TABLET PO SCH ×2 (10:17→21:57)
[2019-11-24] MEDS: hydrOXYzine PAMOATE 25 MG CAPSULE (FP) PO PRN ×2 (10:18→20:41)
[2019-11-24] MEDS: METHOCARBAMOL 500 MG TABLET PO PRN (10:18)
[2019-11-24] MEDS: PRENATAL VITAMINS W/ FOLIC ACID TABLET (FP) PO SCH (10:18)
[2019-11-24] MEDS: QUEtiapine FUMARATE 50 MG TABLET PO SCH (10:19)
[2019-11-24] MEDS: NICOTINE 21 MG/24 HOURS TOPICAL PATCH TD SCH (10:19)
[2019-11-24] MEDS: AMMONIUM LACTATE 12% LOTION 225 GM BOTTLE TP SCH ×2 (10:22→21:56)
[2019-11-24] MEDS: LIDOCAINE 5% TOPICAL PATCH TP SCH (10:23)
[2019-11-24] MEDS: IBUPROFEN 400 MG TABLET (FP) PO PRN (20:41)
[2019-11-24] MEDS ORDERED: BENZOCAINE 20 % GEL TUBE MM PRN (21:31)
[2019-11-24] MEDS: QUEtiapine FUMARATE 100 MG TABLET (FP) PO SCH (21:56)
[2019-11-24] MEDS: THIAMINE HCL 100 MG TABLET (FP) PO SCH (21:57)
[2019-11-25] MEDS: IBUPROFEN 400 MG TABLET (FP) PO PRN ×2 (05:57→14:01)
[2019-11-25] MEDS: METHOCARBAMOL 500 MG TABLET PO PRN (05:59)
[2019-11-25] MEDS ORDERED: METHADONE HCL 5 MG TABLET (FOR DETOX USE ONLY) PO ONE (06:00)
[2019-11-25 09:23] VITALS: BP 125/71; PULSE 85; TEMP 97.6
[2019-11-25] MEDS: LIDOCAINE 5% TOPICAL PATCH TP SCH (10:00)
[2019-11-25] MEDS: QUEtiapine FUMARATE 50 MG TABLET PO SCH (10:00)
[2019-11-25] MEDS: FAMOTIDINE 20 MG TABLET PO SCH (10:00)
[2019-11-25] MEDS: NICOTINE 21 MG/24 HOURS TOPICAL PATCH TD SCH (10:00)
[2019-11-25] MEDS: SULFAMETHOXAZOLE/TRIMETHOPRIM 800MG/160MG D.S. TABLET PO SCH (10:00)
[2019-11-25] MEDS: AMMONIUM LACTATE 12% LOTION 225 GM BOTTLE TP SCH (10:01)
[2019-11-25] MEDS: PRENATAL VITAMINS W/ FOLIC ACID TABLET (FP) PO SCH (10:01)
[2019-11-25] MEDS: hydrOXYzine PAMOATE 25 MG CAPSULE (FP) PO PRN (10:02)
[2019-11-25] MEDS: MAG HYDROX/AL HYDROX/SIMETH 30 ML UNIT-DOSE CUP PO PRN (10:45)
--- NOTE | 2019-11-25 14:38 | DS ---
[facility] Detox Discharge Summary Admission Date: 11/20/19 Discharge Date: 11/25/19 - History Present History: Cannabis Dependence, Cocaine Dependence, Opioid Dependence Additional Comments: Pt is medically cleared and discharged to [facility] for continued management. Pt completed the detox protocol. Pt is encouraged to follow through with the rehab protocol. Pt verbalized understanding. Pt is alert and oriented x3 and in no acute respiratory distress. Pertinent Past History: h/o asthma,htn, GERD, cocaine, Heroin, and cannabis use disorder. - Physical Exam Results Vital Signs: Vital Signs Temperature 97.6 F 11/25/19 09:13 Pulse Rate 85 11/25/19 09:13 Respiratory Rate 16 11/25/19 09:13 Blood Pressure 125/71 11/25/19 09:13 O2 Sat by Pulse Oximetry (%) Vital Signs 11/25/19 09:13 Temperature 97.6 F Pulse Rate 85 Respiratory 16 Rate Blood Pressure 125/71 Laboratory Last Values WBC 8.1 K/mm3 (4.0-10.0) 11/21/19 07:45 RBC 4.19 M/mm3 (3.60-5.2) 11/21/19 07:45 Hgb 11.8 GM/dL (10.7-15.3) 11/21/19 07:45 Hct 36.5 % (32.4-45.2) 11/21/19 07:45 MCV 87.1 fl (80-96) 11/21/19 07:45 MCH 28.1 pg (25.7-33.7) 11/21/19 07:45 MCHC 32.3 g/dl (32.0-36.0) 11/21/19 07:45 RDW 14.6 % (11.6-15.6) 11/21/19 07:45 Plt Count 275 K/MM3 (134-434) D 11/21/19 07:45 MPV 9.6 fl (7.5-11.1) 11/21/19 07:45 Sodium 138 mmol/L (136-145) 11/21/19 07:45 Potassium 4.4 mmol/L (3.5-5.1) 11/21/19 07:45 Chloride 107 mmol/L (98-107) 11/21/19 07:45 Carbon Dioxide 27 mmol/L (21-32) 11/21/19 07:45 Anion Gap 4 MMOL/L (8-16) L 11/21/19 07:45 BUN 17.5 mg/dL (7-18) 11/21/19 07:45 Creatinine 0.6 mg/dL (0.55-1.3) 11/21/19 07:45 Est GFR (CKD-EPI)AfAm 122.32 11/21/19 07:45 Est GFR (CKD-EPI)NonAf 105.54 11/21/19 07:45 Random Glucose 95 mg/dL (74-106) 11/21/19 07:45 Calcium 8.3 mg/dL (8.5-10.1) L 11/21/19 07:45 Total Bilirubin 0.2 mg/dL (0.2-1) 11/21/19 07:45 AST 8 U/L (15-37) L 11/21/19 07:45 ALT 13 U/L (13-61) 11/21/19 07:45 Alkaline Phosphatase 77 U/L (45-117) 11/21/19 07:45 Total Protein 6.3 g/dl (6.4-8.2) L 11/21/19 07:45 Albumin 3.2 g/dl (3.4-5.0) L 11/21/19 07:45 Urine Color Yellow 11/21/19 13:52 Urine Appearance Turbid 11/21/19 13:52 Urine pH 5.5 (5.0-8.0) 11/21/19 13:52 Ur Specific [place] 1.028 (1.010-1.035) 11/21/19 13:52 Urine Protein Negative (NEGATIVE) 11/21/19 13:52 Urine Glucose (UA) Negative (NEGATIVE) 11/21/19 13:52 Urine Ketones Negative (NEGATIVE) 11/21/19 13:52 Urine Blood Negative (NEGATIVE) 11/21/19 13:52 Urine Nitrite Negative (NEGATIVE) 11/21/19 13:52 Urine Bilirubin Negative (NEGATIVE) 11/21/19 13:52 Urine Urobilinogen 0.2 mg/dL (0.2-1.0) 11/21/19 13:52 Ur Leukocyte Esterase 1+ (NEGATIVE) H 11/21/19 13:52 Urine WBC (Auto) 54 /hpf (0-5) 11/21/19 13:52 Urine RBC (Auto) 1 /hpf (0-4) 11/21/19 13:52 Urine Casts (Auto) 10 /lpf (0-8) 11/21/19 13:52 U Epithel Cells (Auto) 15.5 /HPF (0-5/HPF) 11/21/19 13:52 Urine Bacteria (Auto) 221.3 /hpf (NEGATIVE) 11/21/19 13:52 POC Urine HCG, Qual Negative 11/20/19 11:26 RPR Titer Nonreactive (NONREACTIVE) 11/21/19 07:45 HIV 1&2 Antibody Screen Negative 11/22/19 09:00 HIV P24 Antigen Negative 11/22/19 09:00 Labs noted. Pertinent Admission Physical Exam Findings: withdrawal symptoms. - Treatment Hospital Course: Detox Protocol Followed, Detoxed Safely, Responded well, Discharged Condition Good, Rehab Referral Accepted Patient has Accepted a Rehab Referral to: [facility] - Medication Discharge Medications: Ambulatory Orders Omeprazole 40 mg PO DAILY 02/27/17 Albuterol Sulfate Inhaler - [Ventolin HFA Inhaler -] 2 inh PO Q4H PRN #1 inhaler 10/10/18 Quetiapine Fumarate [Seroquel -] 50 mg PO DAILY 06/14/19 Quetiapine Fumarate [Seroquel -] 100 mg PO HS #30 tablet 08/15/19 Naloxone HCl [Narcan] 4 mg NS ASDIR PRN #1 spray 11/21/19 - Diagnosis (1) Asthma Status: Acute (2) Cannabis dependence Status: Chronic (3) Cocaine dependence Status: Chronic Qualifiers: Substance use status: uncomplicated Qualified Code(s): F14.20 - Cocaine dependence, uncomplicated (4) GERD (gastroesophageal reflux disease) Status: Chronic Qualifiers: Esophagitis presence: esophagitis presence not specified Qualified Code(s) : K21.9 - Gastro-esophageal reflux disease without esophagitis (5) Low back pain Status: Chronic Qualifiers: Chronicity: chronic Back pain laterality: unspecified Sciatica presence: unspecified whether sciatica present Qualified Code(s): M54.5 - Low back pain ; G89.29 - Other chronic pain (6) Nicotine dependence Status: Chronic Qualifiers: Nicotine product type: cigarettes Substance use status: uncomplicated Qualified Code(s): F17.210 - Nicotine dependence, cigarettes, uncomplicated (7) Opioid dependence with withdrawal Status: Chronic (8) Osteoarthritis of both knees Status: Chronic Qualifiers: Osteoarthritis type: primary Qualified Code(s): M17.0 - Bilateral primary osteoarthritis of knee (9) Carcinoma uterine cervix in situ Status: Resolved Qualifiers: Carcinoma in situ of uterine cervix location: unspecified part of cervix Qualified Code(s): D06.9 - Carcinoma in situ of cervix, unspecified - AMA Did Patient Leave Against Medical Advice: No
== END 2019-11-25 14:21 | disposition other institution (70) | DRG 773 ==
LOC: YASAS 10:02 → Y3N 12:33
PROVIDERS: ADMIT Allergy & Immunology; ATTEND Allergy & Immunology
PROC: HZ2ZZZZ Detoxification Services for Substance Abuse Treatment (ICD-10-PCS; principal; 2019-11-20)
DX: F11.23 Opioid dependence with withdrawal (principal); F14.20 Cocaine dependence, uncomplicated; F12.20 Cannabis dependence, uncomplicated; F17.210 Nicotine dependence, cigarettes, uncomplicated; F32.9 Major depressive disorder, single episode, unspecified; N39.0 Urinary tract infection, site not specified; I10 Essential (primary) hypertension; J45.909 Unspecified asthma, uncomplicated; K21.9 Gastro-esophageal reflux disease without esophagitis; M17.0 Bilateral primary osteoarthritis of knee; M54.5 Low back pain; G89.29 Other chronic pain; Z85.41 Personal history of malignant neoplasm of cervix uteri; Z88.8 Allergy status to other drugs, medicaments and biological substances
CPT/HCPCS: 36415; 80053; 81003; 81025; 85027; 86593; 87389

== ENCOUNTER 2019-11-25 14:35 | Inpatient (IN) | payer OTHER ==
[2019-11-25] MEDS ORDERED: hydrOXYzine PAMOATE 25 MG CAPSULE (FP) PO PRN (15:14)
[2019-11-25] MEDS ORDERED: MAGNESIUM CITRATE 300 ML BOTTLE PO PRN (15:14)
[2019-11-25] MEDS ORDERED: MAG HYDROX/AL HYDROX/SIMETH 30 ML UNIT-DOSE CUP PO PRN (15:14)
[2019-11-25] MEDS ORDERED: guaiFENesin 200 MG/10 ML 10 ML UNIT-DOSE CUPS PO PRN (15:14)
[2019-11-25] MEDS ORDERED: ACETAMINOPHEN 325 MG TABLET (FP) PO PRN (15:14)
[2019-11-25] MEDS ORDERED: P-EPHED 60MG/TRIPROLIDI 2.5MG TABLET PO PRN (15:14)
[2019-11-25] MEDS ORDERED: LOPERAMIDE HCL 2 MG CAPSULE PO PRN (15:14)
[2019-11-25] MEDS ORDERED: MAGNESIUM HYDROX 2400MG/30ML ORAL SUSPENSION 30 ML CUP PO PRN (15:14)
[2019-11-25] MEDS ORDERED: MENTHOL/PHENOL 1 EACH UD MM PRN (15:14)
[2019-11-25] MEDS ORDERED: NICOTINE POLACRILEX 2 MG GUM BUC PRN (15:16)
[2019-11-25] MEDS ORDERED: ALBUTEROL SO4 8 GM HFA INHALER IH PRN (15:17)
--- NOTE | 2019-11-25 15:29 | PN ---
[facility] Progress Note Note: Patient admitted to [facility]; stable. Home medications, labs, problem list reviewed. Previous admissions reviewed-safety maintained in all admissions VS: 134/77, 96, 98.3 Orders placed Continue rehab Maintain safety
[2019-11-25] MEDS: IBUPROFEN 400 MG TABLET (FP) PO PRN (21:21)
[2019-11-25] MEDS ORDERED: MELATONIN 5 MG TABLETS PO PRN (22:00)
[2019-11-25] MEDS ORDERED: THIAMINE HCL 100 MG TABLET (FP) PO SCH (22:00)
[2019-11-26] MEDS: IBUPROFEN 400 MG TABLET (FP) PO PRN ×2 (06:24→14:23)
[2019-11-26 07:01] VITALS: BP 138/88; PULSE 93; TEMP 97.9
[2019-11-26] MEDS ORDERED: PRENATAL VITAMINS W/ FOLIC ACID TABLET (FP) PO SCH (10:00)
[2019-11-26] MEDS ORDERED: NICOTINE 14 MG/24 HOURS TOPICAL PATCH TD SCH (10:00)
[2019-11-26] MEDS ORDERED: SULFAMETHOXAZOLE/TRIMETHOPRIM 800MG/160MG D.S. TABLET PO SCH (10:30)
--- NOTE | 2019-11-26 10:34 | PN ---
[facility] Progress Note Note: Pt requesting seroquel 50mg qam and 100mg qhs: seen by in 09/2019: will give 2 doses. MH consult done Here is the note from Patria COLVIN CAFETERIA MANAGER: "Ms. Tolbert denies history of psychiatric hospitalizations and suicide attempt. Reports history of seeing multiple psychiatrist and claims to have been diagnosed with Bipolar disorder. As per Dr. German psychiatric consultation on 07/18/2019 patient reported history of one psychiatric hospitalization approximately twenty years ago. Ms. Tolbert denies current outpatient psychiatric care. States that she receives Seroquel 50mg daily + Seroquel 100mg when admitted to detox/rehab facilites. Patient seen by Dr. Siegel last month and was prescribed above medications. At present patient reports difficulty sleeping"
[2019-11-26] MEDS ORDERED: QUEtiapine FUMARATE 25 MG TABLET (FP) PO SCH (10:45)
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
--- NOTE | 2019-11-26 19:03 | DS ---
[facility] Rehab Discharge Summary - [facility] Rehab Discharge Summary Admission Date: 11/25/19 Discharge Date: 11/26/19 - History Present History: Cocaine dependence, Opioid dependence Pertinent Past History: HTN/GERD/Asthma - Discharge Physical Exam Vital Signs: Vital Signs Temperature 97.9 F 11/26/19 06:56 Pulse Rate 93 H 11/26/19 06:56 Respiratory Rate 16 11/26/19 06:56 Blood Pressure 138/88 11/26/19 06:56 O2 Sat by Pulse Oximetry (%) Pertinent Admission Physical Exam Findings: Admitted from detox in early remission from opiates. Hx: cocaine, marijuana, and nicotine use disorder. - Treatment Discharge Condition: Discharge condition good (Patient is stable, feels good, and ready to go home.) Hospital Course: Remained for 2 days and states feels stable enough to go home. Some depression. Encouraged to f/u w/ mental health provider. - Medication Discharge Medications: Ambulatory Orders Omeprazole 40 mg PO DAILY 02/27/17 Albuterol Sulfate Inhaler - [Ventolin HFA Inhaler -] 2 inh PO Q4H PRN #1 inhaler 10/10/18 Quetiapine Fumarate [Seroquel -] 50 mg PO DAILY 06/14/19 Quetiapine Fumarate [Seroquel -] 100 mg PO HS #30 tablet 08/15/19 Famotidine [Pepcid] 20 mg PO DAILY 11/25/19 Naloxone HCl [Narcan] 4 mg NS ASDIR PRN #2 spray 11/26/19 Nicotine Patch [Nicoderm Patch -] 21 mg TD DAILY #30 patch 11/26/19 Nicotine Polacrilex [Nicorelief -] 2 mg BUC Q2H PRN #90 gum 11/26/19 - Medication-Assisted Treatment (MAT) Medication-Assisted Treatment (MAT): No - Discharge Instructions Diet, activity, other medical instructions: Diet: Reg w/ decreased spicy food Activity: Ad sushila Other medical instructions: Encouraged f/w Provider. - Diagnosis (1) HTN (hypertension) Current Visit: Yes Status: Acute Qualifiers: Hypertension type: essential hypertension Qualified Code(s): I10 - Essential (primary) hypertension (2) Cocaine dependence Current Visit: Yes Status: Chronic Qualifiers: Substance use status: uncomplicated Qualified Code(s): F14.20 - Cocaine dependence, uncomplicated (3) Opioid use disorder Current Visit: Yes Status: Chronic (4) Asthma Current Visit: No Status: Chronic Qualifiers: Asthma severity: unspecified severity Asthma persistence: unspecified Asthma complication type: unspecified Qualified Code(s): J45.909 - Unspecified asthma, uncomplicated (5) GERD (gastroesophageal reflux disease) Current Visit: No Status: Chronic Qualifiers: Esophagitis presence: esophagitis presence not specified Qualified Code(s) : K21.9 - Gastro-esophageal reflux disease without esophagitis - Follow-up Referral Minutes to complete discharge: 15 - AMA Did Patient Leave Against Medical Advice: No Additional Comments: Declines referral for MAT Patient agreed to prescriptions for Narcan spray, nicotine patches and gum
[2019-11-26] MEDS ORDERED: PT OWN MED DRAWER 7, Y5N ONE (19:20)
[2019-11-26] MEDS ORDERED: QUEtiapine FUMARATE 100 MG TABLET (FP) PO SCH ×2 (22:00)
[2019-11-27] MEDS ORDERED: QUEtiapine FUMARATE 50 MG TABLET PO SCH (10:00)
== END 2019-11-26 19:30 | disposition home or self-care (01) | DRG 772 ==
LOC: YASAS 14:35 → Y3E 14:36
PROVIDERS: ADMIT Neuromusculoskeletal Medicine & OMM; ATTEND Neuromusculoskeletal Medicine & OMM
PROC: HZ42ZZZ Group Counseling for Substance Abuse Treatment, Cognitive-Behavioral (ICD-10-PCS; principal; 2019-11-25)
DX: F11.23 Opioid dependence with withdrawal (principal); F14.20 Cocaine dependence, uncomplicated; F12.20 Cannabis dependence, uncomplicated; F17.210 Nicotine dependence, cigarettes, uncomplicated; F19.24 Other psychoactive substance dependence with psychoactive substance-induced mood disorder; I10 Essential (primary) hypertension; J45.909 Unspecified asthma, uncomplicated; K21.9 Gastro-esophageal reflux disease without esophagitis; G47.00 Insomnia, unspecified; Z85.41 Personal history of malignant neoplasm of cervix uteri; Z91.19 Patient's noncompliance with other medical treatment and regimen

== ENCOUNTER 2019-12-10 10:00 | Inpatient (IN) | payer OTHER ==
[2019-12-10 10:15] VITALS: BMI 29.2
--- NOTE | 2019-12-10 10:35 | HP ---
COWS - Scale Resting Pulse: 1= [place] 81-100 Sweatin= Chills/Flushing Restless Observation: 1= Difficult to Sit Still Pupil Size: 1= Pupils >than Normal Bone or Joint Aches: 2= Severe Diffuse Aches Runny Nose/ Eye Tearin= Runny Nose/Eyes GI Upset > 30mins: 2= Nausea/Diarrhea Tremor Observation: 2= Slight Tremor Visible Yawning Observation: 1= 1-2x During Session Anxiety or Irritability: 2=Irritable/Anxious Goose Flesh Skin: 3=Piloerection COWS Score: 18 CIWA Score - Admission Criteria OASAS Guidelines: Admission for Medically Managed Detox: Requires at least one of the followin. CIWA greater than 12 2. Seizures within the past 24 hours 3. Delirium tremens within the past 24 hours 4. Hallucinations within the past 24 hours 5. Acute intervention needed for co occurring medical disorder 6. Acute intervention needed for co occurring psychiatric disorder 7. Severe withdrawal that cannot be handled at a lower level of care (continued vomiting, continued diarrhea, abnormal vital signs) requiring intravenous medication and/or fluids 8. Admitting History and Physical - Past Medical History Cardiovascular: Yes: HTN Pulmonary: Yes: Asthma Gastrointestinal: Yes: Gastritis, GERD ...LMP: 09/20/19 Heme/Onc: Yes: Anemia Psych: Yes: Depression Musculoskeletal: Yes: Chronic low back pain, Osteoarthritis - Past Surgical History Past Surgical History: Yes: None - Smoking History Smoking history: Current every day smoker Have you smoked in the past 12 months: Yes Aproximately how many cigarettes per day: 10 - Alcohol/Substance Use Hx Alcohol Use: Yes (none x one year) History of Substance Use: reports: Cocaine, Heroin, Marijuana Date of Last Use: 10/28/19 - Social History Occupation: unemployed History of Recent Travel: No Admission ROS S - HPI Chief Complaint: "I thought I could detox myself in the house but I got so sick for 2 days and I couldn't take it no more" Allergies/Adverse Reactions: Allergies Allergy/AdvReac Type Severity Reaction Status Date / Time chlordiazepoxide Allergy Severe Difficulty Verified 11/20/19 10:48 [From Librium] Breathing History of Present Illness: Patient is a 49 year old woman with repeated admissions at [facility], most recent admission was in late October with 1 day stay in rehab. She reports leaving rehab because she got very depressed. She is here for heroin detox, she reports overdosing 3 months ago. Exam Limitations: No Limitations - Ebola screening Have you traveled outside of the country in the last 21 days: No (N) Have you had contact with anyone from an Ebola affected area: No Have you been sick,other than usual withdrawal symptoms: No Do you have a fever: No - Review of Systems Constitutional: Chills, Loss of Appetite, Changes in sleep, Weakness EENT: reports: Blurred Vision, Nose Congestion Respiratory: reports: Shortness of Breath (on and off due to asthma) Cardiac: reports: Lightheadedness GI: reports: Diarrhea, Poor Appetite, Poor Fluid Intake, Abdominal cramping : reports: No Symptoms Reported, Dysuria, Frequency Musculoskeletal: reports: Back Pain, Joint Pain, Muscle Pain, Muscle Weakness Integumentary: reports: Flushing Neuro: reports: Headache, Tremors, Dizziness Endocrine: reports: Unexplained Weight Loss Hematology: reports: Anemia Psychiatric: reports: Anxious, Depressed Other Systems: Reviewed and Negative Patient History - Patient Medical History Hx Anemia: No Hx Asthma: Yes Hx Chronic Obstructive Pulmonary Disease (COPD): No Hx Cancer: Yes (cervical ca ) Hx Cardiac Disorders: No Hx Congestive Heart Failure: No Hx Hypertension: Yes Hx Hypercholesterolemia: No Hx Pacemaker: No HX Cerebrovascular Accident: No Hx Seizures: No Hx Dementia: No Hx Diabetes: No Hx Gastrointestinal Disorders: Yes (GERD) Hx Liver Disease: No Hx Genitourinary Disorders: No Hx Sexually Transmitted Disorders: No Hx Renal Disease (ESRD): No Hx Thyroid Disease: No Hx Human Immunodeficiency Virus (HIV): No Hx Hepatitis C: Yes Hx Depression: Yes Hx Suicide Attempt: No Hx Bipolar Disorder: Yes Hx Schizophrenia: No - Patient Surgical History Past Surgical History: Yes Hx Neurologic Surgery: No Hx Cataract Extraction: No Hx Cardiac Surgery: No Hx Lung Surgery: No Hx Breast Surgery: No Hx Breast Biopsy: No Hx Abdominal Surgery: No Hx Appendectomy: No Hx Cholecystectomy: Yes (lap in 2006) Hx Genitourinary Surgery: Yes (carcinoma in situ ) Hx Section: No Hx Orthopedic Surgery: No Other Surgical History: Pt had a colposcopy. Anesthesia Reaction: No - PPD History Previous Implant?: Yes Documented Results: Negative w/proof Implanted On Prior R Admission?: Yes Date: 10/31/19 Results: 0mm PPD to be Administered?: No - Reproductive History Patient is a Female of Child Bearing Age (11 -55 yrs old): Yes Last Menstrual Period: 11/24/19 Patient : No - Smoking Cessation Smoking history: Current every day smoker Have you smoked in the past 12 months: Yes Aproximately how many cigarettes per day: 10 Cigars Per Day: 0 Hx Chewing Tobacco Use: No Initiated information on smoking cessation: Yes 'Breaking Loose' booklet given: 12/10/19 - Substances abused Heroin Substance route: Inhalation Frequency: Daily Amount used: 7-8 BAGS/daily Age of first use: 30 Date of last use: 12/10/19 Cocaine Substance route: Smoking Frequency: 1-2 times per week Amount used: "3 pulls of it" Age of first use: 30 Date of last use: 11/17/19 Alcohol Substance route: Oral Frequency: 1-3 times last 30 days Amount used: 2 beers Age of first use: 47 Date of last use: 03/05/19 Marijuana/Hashish Substance route: Smoking Frequency: Daily Amount used: 1 BAG Age of first use: 13 Date of last use: 11/18/19 Alprazolam (Xanax) Substance route: Oral Frequency: 1-3 times last 30 days Amount used: 2mgs Age of first use: 48 Date of last use: 03/06/19 Other Other (specify): suboxone Substance route: Inhalation Frequency: 1-3 times last 30 days Amount used: 2mg Age of first use: 47 Date of last use: 10/25/19 Admission Physical Exam S - Vital Signs Vital Signs: Vital Signs - 24 hr 12/10/19 10:10 Temperature 98.3 F Pulse Rate 84 Respiratory 18 Rate Blood Pressure 136/77 - Physical General Appearance: Yes: No Apparent Distress HEENTM: Yes: EOMI, Hearing grossly Normal, Normocephalic, Normal Voice, ANGEL, Other (poor dentition) Respiratory: Yes: Chest Non-Tender, Lungs Clear, Normal Breath Sounds, No Respiratory Distress, No Accessory Muscle Use Neck: Yes: No masses,lesions,Nodules, Supple Breast: Yes: Breast Exam Deferred Cardiology: Yes: Regular Rhythm, Regular Rate, S1, S2 Abdominal: Yes: Normal Bowel Sounds, Non Tender, Soft Genitourinary: Yes: Burning, Dysuria Back: Yes: Normal Inspection Musculoskeletal: Yes: full range of Motion, Gait Steady, Pelvis Stable, Back pain, Muscle weakness Extremities: Yes: Normal Capillary Refill, Non-Tender, Tremors Neurological: Yes: general counselor II-XII NML intact, Fully Oriented, Alert, Motor Strength 5/5, Normal Mood/Affect, Normal Response, Numbness (to toes) Integumentary: Yes: Clammy Lymphatic: Yes: Within Normal Limits - Diagnostic (1) HTN (hypertension) Current Visit: Yes Status: Chronic Qualifiers: Hypertension type: essential hypertension Qualified Code(s): I10 - Essential (primary) hypertension (2) Asthma Current Visit: Yes Status: Chronic Qualifiers: Asthma severity: mild Asthma persistence: intermittent Asthma complication type: unspecified Qualified Code(s): J45.20 - Mild intermittent asthma, uncomplicated (3) Cannabis dependence Current Visit: Yes Status: Acute (4) Cocaine dependence Current Visit: Yes Status: Acute Qualifiers: Substance use status: uncomplicated Qualified Code(s): F14.20 - Cocaine dependence, uncomplicated (5) GERD (gastroesophageal reflux disease) Current Visit: Yes Status: Chronic Qualifiers: Esophagitis presence: without esophagitis Qualified Code(s): K21.9 - Gastro -esophageal reflux disease without esophagitis (6) Low back pain Current Visit: Yes Status: Chronic Qualifiers: Chronicity: chronic Back pain laterality: bilateral Sciatica presence: with sciatica (7) Nicotine dependence Current Visit: Yes Status: Acute Qualifiers: Nicotine product type: cigarettes Substance use status: uncomplicated Qualified Code(s): F17.210 - Nicotine dependence, cigarettes, uncomplicated (8) Opioid dependence with withdrawal Current Visit: Yes Status: Acute (9) Osteoarthritis of both knees Current Visit: Yes Status: Chronic Qualifiers: Osteoarthritis type: primary Qualified Code(s): M17.0 - Bilateral primary osteoarthritis of knee (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 Current Visit: No Status: Resolved Qualifiers: Carcinoma in situ of uterine cervix location: unspecified part of cervix Qualified Code(s): D06.9 - Carcinoma in situ of cervix, unspecified Cleared for Admission [facility] - Detox or Rehab S Level of Care: Medically Managed Detox Regimen/Protocol: Methadone Claeared for Rehab Admission: No Breathalyzer - Breathalyzer Breathalyzer: 0 POC Urine test - Test device test lot number: [id number] Expiration date: 07/30/20 - Control test control: Yes Urine Drug Screen - Test Device Lot number: [id number] Expiration date: 06/29/21 - Control Is test valid?: Yes - Results Drug screen NEGATIVE: No Urine drug screen results: THC-Marijuana, [place]-Cocaine, MOP-Opiates, OXY- Oxycodone, BZO-Benzodiazepines Inpatient Rehab Admission - Rehab Decision to Admit Inpatient rehab admission?: No
[2019-12-10] MEDS ORDERED: cloNIDine HCL 0.1 MG TABLET PO PRN (10:51)
[2019-12-10] MEDS ORDERED: METHADONE HCL 10 MG TABLET (FOR DETOX USE ONLY) PO ONE ×2 (10:51→14:41)
[2019-12-10] MEDS ORDERED: MENTHOL/PHENOL 1 EACH UD MM PRN (10:51)
[2019-12-10] MEDS ORDERED: MAG HYDROX/AL HYDROX/SIMETH 30 ML UNIT-DOSE CUP PO PRN (10:51)
[2019-12-10] MEDS ORDERED: ACETAMINOPHEN 325 MG TABLET (FP) PO PRN ×2 (10:51)
[2019-12-10] MEDS ORDERED: MAGNESIUM HYDROX 2400MG/30ML ORAL SUSPENSION 30 ML CUP PO PRN (10:51)
[2019-12-10] MEDS ORDERED: BISMUTH SUBSALICYLATE 524 MG/30 ML UD PO PRN (10:51)
[2019-12-10] MEDS ORDERED: MAGNESIUM CITRATE 300 ML BOTTLE PO PRN (10:51)
[2019-12-10] MEDS ORDERED: ALBUTEROL SO4 8 GM HFA INHALER IH PRN (10:54)
[2019-12-10] MEDS: NICOTINE 14 MG/24 HOURS TOPICAL PATCH TD SCH (11:36)
[2019-12-10] MEDS ORDERED: DICYCLOMINE HCL 10 MG CAPSULE PO PRN (12:09)
[2019-12-10] MEDS ORDERED: METHADONE HCL 10 MG TABLET PO ONE (14:00)
--- NOTE | 2019-12-10 14:01 | PN ---
[facility] Progress Note Note: Patient was admitted this morning for heroin detox; started on moderate methadone regimen. Patient upon arriving on unit requested extra dose of methadone. Patient reassured dose will be adjusted if her symptoms worsen with 20mg dose. 10 mg of methadone x 1 ordered at this time for worsening symptoms and patient insistence. Staff will continue to monitor.
[2019-12-10] MEDS: IBUPROFEN 400 MG TABLET (FP) PO PRN (15:20)
[2019-12-10] MEDS: MELATONIN 5 MG TABLETS PO PRN (22:59)
[2019-12-10] MEDS: METHOCARBAMOL 500 MG TABLET PO PRN (22:59)
[2019-12-10] MEDS: THIAMINE HCL 100 MG TABLET (FP) PO SCH (22:59)
[2019-12-11] MEDS ORDERED: cloNIDine HCL 0.1 MG TABLET PO PRN (08:42)
--- NOTE | 2019-12-11 08:43 | PN ---
S COWS - Scale Resting Pulse: 0= [place] 80 or Below Sweatin= Chills/Flushing Restless Observation: 1= Difficult to Sit Still Pupil Size: 1= Pupils >than Normal Bone or Joint Aches: 2= Severe Diffuse Aches Runny Nose/ Eye Tearin= Nasal Congestion GI Upset > 30mins: 2= Nausea/Diarrhea Tremor Observation of Outstretched Hands: 2= Slight Tremor Visible Yawning Observation: 0= None Anxiety or Irritability: 2=Irritable/Anxious Goose Flesh Skin: 3=Piloerection COWS Score: 15 [facility] Progress Note (SOAP) Subjective: 49 years old female admitted on 12/10/19 for opiate withdrawal sx management treating with methadone detox regimen reports will receive methadone 15 mg today around 10 am patient is anxious and restlessness with cows 15 increase methadone to 20 mg today and 15mg tomorrow and 12/13 methadone 10 mg and 5 mg methadone on 12/14/28 requests valium prn as counter withdrawal management discontinue clonidine begin valium 5mg po prn q6h Objective: 12/11/19 08:43 Vital Signs Temperature 98.0 F 12/11/19 06:52 Pulse Rate 64 12/11/19 06:52 Respiratory Rate 18 12/11/19 06:52 Blood Pressure 111/61 12/11/19 06:52 O2 Sat by Pulse Oximetry (%) 12/11/19 08:44 lab pending 12/11/19 08:44 clonidine 0.1mg po q6h prn for hypertension Assessment: 12/11/19 08:44 opiate withdrawal picking up narcan from pharmacy up discharge Plan: methadone regimen
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
[2019-12-11] MEDS ORDERED: METHADONE HCL 10 MG TABLET (FOR DETOX USE ONLY) PO ONE (10:00)
[2019-12-11] MEDS ORDERED: METHADONE HCL 5 MG TABLET (FOR DETOX USE ONLY) PO ONE ×2 (10:00→10:33)
[2019-12-11] MEDS: NICOTINE 14 MG/24 HOURS TOPICAL PATCH TD SCH (10:24)
[2019-12-11] MEDS: PRENATAL VITAMINS W/ FOLIC ACID TABLET (FP) PO SCH (10:24)
[2019-12-11] MEDS: QUEtiapine FUMARATE 50 MG TABLET PO SCH (10:26)
[2019-12-11 10:53] LABS: HEMOGLOBIN 12.4 GM/dL (10.7-15.3); MCH 28.8 pg (25.7-33.7); MCHC 32.7 g/dl (32.0-36.0); MEAN CELL VOLUME 88.1 fl (80-96); MEAN PLT VOLUME 8.5 fl (7.5-11.1); PLATELET COUNT 358 K/MM3 (134-434); RBC 4.31 M/mm3 (3.60-5.2); RDW 14.5 % (11.6-15.6); WHITE BLOOD COUNT 7.3 K/mm3 (4.0-10.0)
[2019-12-11 11:05] LABS: ALBUMIN 3.4 g/dl (3.4-5.0); BILIRUBIN,TOTAL 0.3 mg/dL (0.2-1); BLOOD UREA NITROGEN 21.5 mg/dL (7-18); CALCIUM 8.6 mg/dL (8.5-10.1); CREATININE 0.8 mg/dL (0.55-1.3); TOT PROT 6.5 g/dl (6.4-8.2)
[2019-12-11] MEDS: METHADONE HCL 5 MG TABLET (FOR DETOX USE ONLY) PO ONE (11:25)
[2019-12-11] MEDS: diazePAM 5 MG TABLET PO PRN ×2 (11:25→17:44)
[2019-12-11] MEDS ORDERED: ONDANSETRON *ODT* 4 MG TABLET SL ONE (11:31)
[2019-12-11] MEDS ORDERED: LOPERAMIDE HCL 2 MG CAPSULE PO ONE (11:31)
[2019-12-11 13:12] LABS: EPI CELLS 2.7 /HPF (0-5/HPF); HYALINE CASTS 36 /lpf (0-8); URINE APPEARANCE CLEAR; URINE BACTERIA 46.3 /hpf (NEGATIVE); URINE BILIRUBIN NEGATIVE (NEGATIVE); URINE COLOR YELLOW; URINE GLUCOSE (UA) NEGATIVE (NEGATIVE); URINE KETONE NEGATIVE (NEGATIVE); URINE LEUK ESTERASE 1+ (NEGATIVE); URINE NITRITE NEGATIVE (NEGATIVE); URINE PROTEIN NEGATIVE (NEGATIVE); URINE RBC 3 /hpf (0-4); URINE UROBILINOGEN 0.2 mg/dL (0.2-1.0); URINE WBC 81 /hpf (0-5)
[2019-12-11] MEDS: METHOCARBAMOL 500 MG TABLET PO PRN (17:44)
[2019-12-11] MEDS: THIAMINE HCL 100 MG TABLET (FP) PO SCH (22:28)
[2019-12-11] MEDS: QUEtiapine FUMARATE 100 MG TABLET (FP) PO SCH (22:28)
[2019-12-11] MEDS: MELATONIN 5 MG TABLETS PO PRN (22:29)
[2019-12-12] MEDS: diazePAM 5 MG TABLET PO PRN ×3 (06:08→17:35)
[2019-12-12] MEDS: METHOCARBAMOL 500 MG TABLET PO PRN ×3 (06:08→17:35)
[2019-12-12] MEDS: IBUPROFEN 400 MG TABLET (FP) PO PRN (06:08)
[2019-12-12] MEDS ORDERED: METHADONE HCL 10 MG TABLET (FOR DETOX USE ONLY) PO ONE (10:00)
[2019-12-12] MEDS ORDERED: METHADONE HCL 5 MG TABLET (FOR DETOX USE ONLY) PO ONE (10:00)
[2019-12-12] MEDS: NICOTINE 14 MG/24 HOURS TOPICAL PATCH TD SCH (10:01)
[2019-12-12] MEDS: PRENATAL VITAMINS W/ FOLIC ACID TABLET (FP) PO SCH (10:01)
[2019-12-12] MEDS: QUEtiapine FUMARATE 50 MG TABLET PO SCH (10:01)
--- NOTE | 2019-12-12 12:52 | PN ---
[facility] COWS - Scale Resting Pulse: 0= [place] 80 or Below Sweatin= Chills/Flushing Restless Observation: 0= Sits Still Pupil Size: 1= Pupils >than Normal Bone or Joint Aches: 1= Mild Discomfort Runny Nose/ Eye Tearin= Runny Nose/Eyes GI Upset > 30mins: 1= Stomach Cramp Tremor Observation of Outstretched Hands: 2= Slight Tremor Visible Yawning Observation: 1= 1-2x During Session Anxiety or Irritability: 2=Irritable/Anxious Goose Flesh Skin: 0=Smooth Skin COWS Score: 11 S Progress Note (SOAP) Subjective: 49 YEARS OLD FEMALE ADMITTED ON 12/10/19 FOR OPIATE WITHDRAWAL SX MANAGEMENT TREATING WITH METHADONE DETOX REGIMEN FEELING OK TODAY ATE BREAKFAST AND LUNCH IN DAY ROOM SOCIAL WITH [facility] DISCUSSED MEDICATION ASSISTED TREATMENT PROGRAM AND HIDE SHAKER NARCAN FROM PHARMACY UPON DISCHARGE Objective: 12/12/19 12:52 Vital Signs Temperature 97.9 F 12/12/19 09:25 Pulse Rate 76 12/12/19 09:25 Respiratory Rate 18 12/12/19 09:25 Blood Pressure 108/65 12/12/19 09:25 O2 Sat by Pulse Oximetry (%) Laboratory Last Values WBC 7.3 K/mm3 (4.0-10.0) 12/11/19 07:15 RBC 4.31 M/mm3 (3.60-5.2) 12/11/19 07:15 Hgb 12.4 GM/dL (10.7-15.3) 12/11/19 07:15 Hct 38.0 % (32.4-45.2) 12/11/19 07:15 MCV 88.1 fl (80-96) 12/11/19 07:15 MCH 28.8 pg (25.7-33.7) 12/11/19 07:15 MCHC 32.7 g/dl (32.0-36.0) 12/11/19 07:15 RDW 14.5 % (11.6-15.6) 12/11/19 07:15 Plt Count 358 K/MM3 (134-434) D 12/11/19 07:15 MPV 8.5 fl (7.5-11.1) D 12/11/19 07:15 Sodium 138 mmol/L (136-145) 12/11/19 07:15 Potassium 4.0 mmol/L (3.5-5.1) 12/11/19 07:15 Chloride 105 mmol/L (98-107) 12/11/19 07:15 Carbon Dioxide 27 mmol/L (21-32) 12/11/19 07:15 Anion Gap 6 MMOL/L (8-16) L 12/11/19 07:15 BUN 21.5 mg/dL (7-18) H 12/11/19 07:15 Creatinine 0.8 mg/dL (0.55-1.3) 12/11/19 07:15 Est GFR (CKD-EPI)AfAm 98.93 12/11/19 07:15 Est GFR (CKD-EPI)NonAf 85.36 12/11/19 07:15 Random Glucose 87 mg/dL (74-106) 12/11/19 07:15 Calcium 8.6 mg/dL (8.5-10.1) 12/11/19 07:15 Total Bilirubin 0.3 mg/dL (0.2-1) 12/11/19 07:15 AST 7 U/L (15-37) L 12/11/19 07:15 ALT 14 U/L (13-61) 12/11/19 07:15 Alkaline Phosphatase 89 U/L (45-117) 12/11/19 07:15 Total Protein 6.5 g/dl (6.4-8.2) 12/11/19 07:15 Albumin 3.4 g/dl (3.4-5.0) 12/11/19 07:15 Urine Color Yellow 12/11/19 07:15 Urine Appearance Clear 12/11/19 07:15 Urine pH 6.0 (5.0-8.0) 12/11/19 07:15 Ur Specific [place] 1.028 (1.010-1.035) 12/11/19 07:15 Urine Protein Negative (NEGATIVE) 12/11/19 07:15 Urine Glucose (UA) Negative (NEGATIVE) 12/11/19 07:15 Urine Ketones Negative (NEGATIVE) 12/11/19 07:15 Urine Blood Negative (NEGATIVE) 12/11/19 07:15 Urine Nitrite Negative (NEGATIVE) 12/11/19 07:15 Urine Bilirubin Negative (NEGATIVE) 12/11/19 07:15 Urine Urobilinogen 0.2 mg/dL (0.2-1.0) 12/11/19 07:15 Ur Leukocyte Esterase 1+ (NEGATIVE) H 12/11/19 07:15 Urine WBC (Auto) 81 /hpf (0-5) 12/11/19 07:15 Urine RBC (Auto) 3 /hpf (0-4) 12/11/19 07:15 Urine Casts (Auto) 36 /lpf (0-8) 12/11/19 07:15 U Epithel Cells (Auto) 2.7 /HPF (0-5/HPF) 12/11/19 07:15 Urine Bacteria (Auto) 46.3 /hpf (NEGATIVE) 12/11/19 07:15 POC Urine HCG, Qual Negative 12/10/19 10:26 HIV 1&2 Antibody Screen Negative 12/11/19 07:15 HIV P24 Antigen Negative 12/11/19 07:15 LAB NOTED 12/12/19 12:52 UTI Assessment: 12/12/19 12:53 OPIATE WITHDRAWAL UTI UNCOMPLICATED 12/12/19 12:55 Plan: METHADONE REGIMEN BACTRIM DS PO BID
[2019-12-12] MEDS: SULFAMETHOXAZOLE/TRIMETHOPRIM 800MG/160MG D.S. TABLET PO SCH ×2 (13:23→21:46)
[2019-12-12] MEDS: THIAMINE HCL 100 MG TABLET (FP) PO SCH (21:46)
[2019-12-12] MEDS: QUEtiapine FUMARATE 100 MG TABLET (FP) PO SCH (21:46)
[2019-12-12] MEDS: MELATONIN 5 MG TABLETS PO PRN (21:47)
[2019-12-13] MEDS: diazePAM 5 MG TABLET PO PRN ×2 (05:52→12:49)
[2019-12-13] MEDS: METHOCARBAMOL 500 MG TABLET PO PRN ×3 (05:52→22:27)
[2019-12-13] MEDS: IBUPROFEN 400 MG TABLET (FP) PO PRN (05:52)
[2019-12-13] MEDS ORDERED: METHADONE HCL 5 MG TABLET (FOR DETOX USE ONLY) PO ONE (06:00)
[2019-12-13] MEDS ORDERED: METHADONE HCL 10 MG TABLET (FOR DETOX USE ONLY) PO ONE (10:00)
[2019-12-13] MEDS: SULFAMETHOXAZOLE/TRIMETHOPRIM 800MG/160MG D.S. TABLET PO SCH ×2 (10:10→22:26)
[2019-12-13] MEDS: NICOTINE 14 MG/24 HOURS TOPICAL PATCH TD SCH (10:11)
[2019-12-13] MEDS: PRENATAL VITAMINS W/ FOLIC ACID TABLET (FP) PO SCH (10:11)
[2019-12-13] MEDS: QUEtiapine FUMARATE 50 MG TABLET PO SCH (10:11)
--- NOTE | 2019-12-13 14:46 | PN ---
[facility] COWS - Scale Resting Pulse: 1= [place] 81-100 Sweatin= Chills/Flushing Restless Observation: 0= Sits Still Pupil Size: 1= Pupils >than Normal Bone or Joint Aches: 1= Mild Discomfort Runny Nose/ Eye Tearin= Nasal Congestion GI Upset > 30mins: 1= Stomach Cramp Tremor Observation of Outstretched Hands: 1= Tremor [place], Not Seen Yawning Observation: 0= None Anxiety or Irritability: 1=Feels Anxious/Irritable Goose Flesh Skin: 0=Smooth Skin COWS Score: 8 [facility] Progress Note (SOAP) Subjective: 49 years old female admitted on 12/10/19 for opiate withdrawal sx management treating with lmethdone detox regimen feeling better today mild general body aches slept through the night Objective: 12/13/19 15:20 Vital Signs Temperature 99.3 F 12/13/19 13:15 Pulse Rate 86 12/13/19 13:15 Respiratory Rate 18 12/13/19 13:15 Blood Pressure 107/64 12/13/19 13:15 O2 Sat by Pulse Oximetry (%) Laboratory Last Values WBC 7.3 K/mm3 (4.0-10.0) 12/11/19 07:15 RBC 4.31 M/mm3 (3.60-5.2) 12/11/19 07:15 Hgb 12.4 GM/dL (10.7-15.3) 12/11/19 07:15 Hct 38.0 % (32.4-45.2) 12/11/19 07:15 MCV 88.1 fl (80-96) 12/11/19 07:15 MCH 28.8 pg (25.7-33.7) 12/11/19 07:15 MCHC 32.7 g/dl (32.0-36.0) 12/11/19 07:15 RDW 14.5 % (11.6-15.6) 12/11/19 07:15 Plt Count 358 K/MM3 (134-434) D 12/11/19 07:15 MPV 8.5 fl (7.5-11.1) D 12/11/19 07:15 Sodium 138 mmol/L (136-145) 12/11/19 07:15 Potassium 4.0 mmol/L (3.5-5.1) 12/11/19 07:15 Chloride 105 mmol/L (98-107) 12/11/19 07:15 Carbon Dioxide 27 mmol/L (21-32) 12/11/19 07:15 Anion Gap 6 MMOL/L (8-16) L 12/11/19 07:15 BUN 21.5 mg/dL (7-18) H 12/11/19 07:15 Creatinine 0.8 mg/dL (0.55-1.3) 12/11/19 07:15 Est GFR (CKD-EPI)AfAm 98.93 12/11/19 07:15 Est GFR (CKD-EPI)NonAf 85.36 12/11/19 07:15 Random Glucose 87 mg/dL (74-106) 12/11/19 07:15 Calcium 8.6 mg/dL (8.5-10.1) 12/11/19 07:15 Total Bilirubin 0.3 mg/dL (0.2-1) 12/11/19 07:15 AST 7 U/L (15-37) L 12/11/19 07:15 ALT 14 U/L (13-61) 12/11/19 07:15 Alkaline Phosphatase 89 U/L (45-117) 12/11/19 07:15 Total Protein 6.5 g/dl (6.4-8.2) 12/11/19 07:15 Albumin 3.4 g/dl (3.4-5.0) 12/11/19 07:15 Urine Color Yellow 12/11/19 07:15 Urine Appearance Clear 12/11/19 07:15 Urine pH 6.0 (5.0-8.0) 12/11/19 07:15 Ur Specific [place] 1.028 (1.010-1.035) 12/11/19 07:15 Urine Protein Negative (NEGATIVE) 12/11/19 07:15 Urine Glucose (UA) Negative (NEGATIVE) 12/11/19 07:15 Urine Ketones Negative (NEGATIVE) 12/11/19 07:15 Urine Blood Negative (NEGATIVE) 12/11/19 07:15 Urine Nitrite Negative (NEGATIVE) 12/11/19 07:15 Urine Bilirubin Negative (NEGATIVE) 12/11/19 07:15 Urine Urobilinogen 0.2 mg/dL (0.2-1.0) 12/11/19 07:15 Ur Leukocyte Esterase 1+ (NEGATIVE) H 12/11/19 07:15 Urine WBC (Auto) 81 /hpf (0-5) 12/11/19 07:15 Urine RBC (Auto) 3 /hpf (0-4) 12/11/19 07:15 Urine Casts (Auto) 36 /lpf (0-8) 12/11/19 07:15 U Epithel Cells (Auto) 2.7 /HPF (0-5/HPF) 12/11/19 07:15 Urine Bacteria (Auto) 46.3 /hpf (NEGATIVE) 12/11/19 07:15 POC Urine HCG, Qual Negative 12/10/19 10:26 HIV 1&2 Antibody Screen Negative 12/11/19 07:15 HIV P24 Antigen Negative 12/11/19 07:15 lab noted 12/13/19 15:23 uncomplicated uti continue bactrim ds bid Assessment: 12/13/19 15:23 opiate withdrawal Plan: methadone regimen
[2019-12-13] MEDS: THIAMINE HCL 100 MG TABLET (FP) PO SCH (22:26)
[2019-12-13] MEDS: QUEtiapine FUMARATE 100 MG TABLET (FP) PO SCH (22:26)
[2019-12-13] MEDS: MELATONIN 5 MG TABLETS PO PRN (22:27)
[2019-12-14] MEDS: IBUPROFEN 400 MG TABLET (FP) PO PRN (06:25)
[2019-12-14] MEDS: METHADONE HCL 5 MG TABLET (FOR DETOX USE ONLY) PO ONE (06:25)
[2019-12-14] MEDS: METHOCARBAMOL 500 MG TABLET PO PRN (06:27)
--- NOTE | 2019-12-14 08:55 | DS ---
[facility] Detox Discharge Summary Admission Date: 12/10/19 Discharge Date: 12/14/19 - History Present History: Cannabis Dependence, Cocaine Dependence, Opioid Dependence - Physical Exam Results Vital Signs: Vital Signs Temperature 98.7 F 12/14/19 07:40 Pulse Rate 96 H 12/14/19 07:40 Respiratory Rate 18 12/14/19 07:40 Blood Pressure 104/58 L 12/14/19 07:40 O2 Sat by Pulse Oximetry (%) - Treatment Hospital Course: Detox Protocol Followed, Detoxed Safely, Responded well, Discharged Condition Good - Medication Discharge Medications: Ambulatory Orders Albuterol Sulfate Inhaler - [Ventolin HFA Inhaler -] 2 inh PO Q4H PRN #1 inhaler 10/10/18 Naloxone HCl [Narcan] 4 mg NS ASDIR PRN #1 spray 12/11/19 - Diagnosis (1) Cannabis dependence Current Visit: Yes Status: Chronic (2) Cocaine dependence Current Visit: Yes Status: Chronic Qualifiers: Substance use status: uncomplicated Qualified Code(s): F14.20 - Cocaine dependence, uncomplicated (3) Nicotine dependence Current Visit: Yes Status: Chronic Qualifiers: Nicotine product type: cigarettes Substance use status: uncomplicated Qualified Code(s): F17.210 - Nicotine dependence, cigarettes, uncomplicated (4) Opioid dependence with withdrawal Current Visit: Yes Status: Acute (5) Asthma Current Visit: Yes Status: Chronic Qualifiers: Asthma severity: mild Asthma persistence: intermittent Asthma complication type: unspecified Qualified Code(s): J45.20 - Mild intermittent asthma, uncomplicated (6) GERD (gastroesophageal reflux disease) Current Visit: Yes Status: Chronic Qualifiers: Esophagitis presence: without esophagitis Qualified Code(s): K21.9 - Gastro -esophageal reflux disease without esophagitis (7) Nicotine dependence Current Visit: Yes Status: Chronic - AMA Did Patient Leave Against Medical Advice: No
[2019-12-14] MEDS: PRENATAL VITAMINS W/ FOLIC ACID TABLET (FP) PO SCH (10:08)
[2019-12-14] MEDS: SULFAMETHOXAZOLE/TRIMETHOPRIM 800MG/160MG D.S. TABLET PO SCH (10:08)
[2019-12-14] MEDS: QUEtiapine FUMARATE 50 MG TABLET PO SCH (10:08)
[2019-12-14] MEDS: NICOTINE 14 MG/24 HOURS TOPICAL PATCH TD SCH (10:08)
[2019-12-14 13:17] VITALS: BP 134/52; PULSE 90; TEMP 97
== END 2019-12-14 13:45 | disposition other institution (70) | DRG 773 ==
LOC: YASAS 10:00 → Y3N 11:10
PROVIDERS: ADMIT Allergy & Immunology; ATTEND Allergy & Immunology
PROC: HZ2ZZZZ Detoxification Services for Substance Abuse Treatment (ICD-10-PCS; principal; 2019-12-10)
DX: F11.23 Opioid dependence with withdrawal (principal); F14.20 Cocaine dependence, uncomplicated; F12.20 Cannabis dependence, uncomplicated; F13.21 Sedative, hypnotic or anxiolytic dependence, in remission; F17.210 Nicotine dependence, cigarettes, uncomplicated; F39 Unspecified mood [affective] disorder; N39.0 Urinary tract infection, site not specified; I10 Essential (primary) hypertension; J45.20 Mild intermittent asthma, uncomplicated; K21.9 Gastro-esophageal reflux disease without esophagitis; M17.0 Bilateral primary osteoarthritis of knee; M54.42 Lumbago with sciatica, left side; B18.2 Chronic viral hepatitis C; Z85.41 Personal history of malignant neoplasm of cervix uteri
CPT/HCPCS: 36415; 80053; 81003; 81025; 85027; 87389; Q0162

== ENCOUNTER 2019-12-14 13:45 | Inpatient (IN) | payer OTHER ==
[2019-12-14] MEDS ORDERED: P-EPHED 60MG/TRIPROLIDI 2.5MG TABLET PO PRN (15:07)
[2019-12-14] MEDS ORDERED: LOPERAMIDE HCL 2 MG CAPSULE PO PRN (15:07)
[2019-12-14] MEDS ORDERED: guaiFENesin 200 MG/10 ML 10 ML UNIT-DOSE CUPS PO PRN (15:07)
[2019-12-14] MEDS ORDERED: NICOTINE POLACRILEX 2 MG GUM BUC PRN (15:07)
[2019-12-14] MEDS ORDERED: MENTHOL/PHENOL 1 EACH UD MM PRN (15:07)
[2019-12-14] MEDS ORDERED: MAGNESIUM CITRATE 300 ML BOTTLE PO PRN (15:07)
--- NOTE | 2019-12-14 15:11 | HP ---
[facility] Rehab Assess/Revision - Admission History Admitted to Rehab from: [address] Date of Admission to Rehab: 12/14/19 - Vital signs Vital Signs: Vital Signs Period Temp Pulse Resp BP Sys/Mccracken Pulse Ox Last 24 Hr 97.3 F 97 18 133/61 - Findings Detox History & Physical reviewed: Yes Concur with findings: Yes Comments/Additional Findings: Pt is a 49 y/o with a hx of TALA female admitted to rehab from [address] [place] [address]. PMHx: Cardiovascular: Yes: HTN. Pulmonary: Yes: Asthma. Gastrointestinal: Yes: Gastritis, GERD. ...LMP: 09/20/19. Heme/Onc: Yes: Anemia. Psych: Yes: Depression. Musculoskeletal: Yes: Chronic low back pain, Osteoarthritis. Psych Hx:Depression Inpatient Rehab Admission - Rehab Decision to Admit Inpatient rehab admission?: Yes - Initial Determination Are CD services needed?: Yes Free of communicable disease: Yes Not in need of hospitalization: Yes - Rehab Admission Criteria Previous failed treatment: Yes Poor recovery environment: Yes Comorbidities: Yes Lacks judgement: Yes Patient is meeting Inpatient Rehab admission criteria:: Yes
[2019-12-14] MEDS: THIAMINE HCL 100 MG TABLET (FP) PO SCH (21:38)
[2019-12-14] MEDS: MELATONIN 5 MG TABLETS PO PRN (21:39)
[2019-12-14] MEDS: QUEtiapine FUMARATE 100 MG TABLET (FP) PO SCH (21:39)
[2019-12-14] MEDS: SULFAMETHOXAZOLE/TRIMETHOPRIM 800MG/160MG D.S. TABLET PO SCH (21:40)
[2019-12-15] MEDS: METHOCARBAMOL 500 MG TABLET PO PRN ×2 (06:35→16:42)
[2019-12-15] MEDS: IBUPROFEN 400 MG TABLET (FP) PO PRN ×2 (06:35→16:41)
[2019-12-15] MEDS: PRENATAL VITAMINS W/ FOLIC ACID TABLET (FP) PO SCH (09:59)
[2019-12-15] MEDS: QUEtiapine FUMARATE 50 MG TABLET PO SCH (09:59)
[2019-12-15] MEDS: NICOTINE 14 MG/24 HOURS TOPICAL PATCH TD SCH (09:59)
[2019-12-15] MEDS: GABAPENTIN 300 MG CAPSULE PO SCH (10:00)
[2019-12-15] MEDS: SULFAMETHOXAZOLE/TRIMETHOPRIM 800MG/160MG D.S. TABLET PO SCH ×2 (10:40→21:17)
[2019-12-15] MEDS: MELATONIN 5 MG TABLETS PO PRN (21:17)
[2019-12-15] MEDS: QUEtiapine FUMARATE 100 MG TABLET (FP) PO SCH (21:17)
[2019-12-15] MEDS: THIAMINE HCL 100 MG TABLET (FP) PO SCH (21:17)
[2019-12-16] MEDS: METHOCARBAMOL 500 MG TABLET PO PRN ×2 (06:50→14:53)
[2019-12-16] MEDS: IBUPROFEN 400 MG TABLET (FP) PO PRN ×2 (06:50→15:47)
--- NOTE | 2019-12-16 08:47 | PN ---
S Progress Note Note: Pt is a 49 y/o female admitted to rehab. pt reports she has no primary care doctor and goes to [facility] ER for primary care. Pt requesting to start on Suboxone. Vital Signs - 24 hr 12/16/19 12/16/19 12/16/19 00:30 03:30 07:17 Temperature 98.1 F Pulse Rate 87 Respiratory 18 18 18 Rate Blood Pressure 126/83 A/P s/p detox Will assess pt for suboxone MAT Pt to meet with her counselor for aftercare plans.
--- NOTE | 2019-12-16 09:02 | PN ---
[facility] COWS - Scale Resting Pulse: 1= [place] 81-100 Sweatin= Chills/Flushing Restless Observation: 0= Sits Still Pupil Size: 0= Normal to Room Light Bone or Joint Aches: 4=Acute Joint/Muscle Pain Runny Nose/ Eye Tearin= Runny Nose/Eyes GI Upset > 30mins: 2= Nausea/Diarrhea Tremor Observation of Outstretched Hands: 1= Tremor [place], Not Seen Yawning Observation: 0= None Anxiety or Irritability: 2=Irritable/Anxious Goose Flesh Skin: 0=Smooth Skin COWS Score: 13 S Progress Note (SOAP) Subjective: c/o withdrawal sx and wants to start on suboxone. Pt is known to this facility with multiple admissions to detox and rehab. pt was started on suboxone in previous admissions with noncompliance in follow up aftercare to [facility] after discharge. Pt also reports she has been in Methadone treatment for 6 months in the past before suboxone treatment. Pt met with her counselor Ms Parker Weldon and this chief writer this morning. Pt has been referred to [facility] after discharge from rehab. Objective: 12/16/19 10:28 Vital Signs - 24 hr 12/16/19 12/16/19 12/16/19 00:30 03:30 07:17 Temperature 98.1 F Pulse Rate 87 Respiratory 18 18 18 Rate Blood Pressure 126/83 12/16/19 10:00 Temperature Pulse Rate 90 Respiratory Rate Blood Pressure 131/72 URINE DRUG SCREEN RESULTS Drug Screen Negative No Urine Drug Screen Results THC-Marijuana,BZO-Benzodiazepines,MTD-Methadone Assessment: 12/16/19 10:33 s/p detox protracted w/s pt requesting suboxone MAT Plan: Maintain safety UDS today D/w pt and counselor Ms Weldon, will start pt again on Suboxone 2 mg/0.5 mg x 1 then twice daily and re-eval for adjustment on 12/19/19.
[2019-12-16] MEDS: SULFAMETHOXAZOLE/TRIMETHOPRIM 800MG/160MG D.S. TABLET PO SCH ×2 (09:03→21:44)
[2019-12-16] MEDS: GABAPENTIN 300 MG CAPSULE PO SCH (09:03)
[2019-12-16] MEDS: NICOTINE 14 MG/24 HOURS TOPICAL PATCH TD SCH (09:04)
[2019-12-16] MEDS: PRENATAL VITAMINS W/ FOLIC ACID TABLET (FP) PO SCH (09:04)
[2019-12-16] MEDS: QUEtiapine FUMARATE 50 MG TABLET PO SCH (09:05)
[2019-12-16] MEDS ORDERED: BUPRENORPHINE/NALOXONE 2 MG/0.5 MG FILM PACKET SL ONE (14:12)
[2019-12-16 14:45] LABS: EPI CELLS 14.3 /HPF (0-5/HPF); HYALINE CASTS 6 /lpf (0-8); URINE APPEARANCE CLEAR; URINE BACTERIA 166.2 /hpf (NEGATIVE); URINE BILIRUBIN NEGATIVE (NEGATIVE); URINE COLOR YELLOW; URINE GLUCOSE (UA) NEGATIVE (NEGATIVE); URINE KETONE NEGATIVE (NEGATIVE); URINE LEUK ESTERASE TRACE (NEGATIVE); URINE NITRITE NEGATIVE (NEGATIVE); URINE PROTEIN NEGATIVE (NEGATIVE); URINE RBC 1 /hpf (0-4); URINE UROBILINOGEN 0.2 mg/dL (0.2-1.0); URINE WBC 8 /hpf (0-5)
[2019-12-16] MEDS: hydrOXYzine PAMOATE 50 MG CAPSULE (FP) PO PRN ×2 (14:53→21:46)
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
[2019-12-16] MEDS: BUPRENORPHINE/NALOXONE 2 MG/0.5 MG FILM PACKET SL SCH (21:44)
[2019-12-16] MEDS: THIAMINE HCL 100 MG TABLET (FP) PO SCH (21:45)
[2019-12-16] MEDS: QUEtiapine FUMARATE 100 MG TABLET (FP) PO SCH (21:45)
[2019-12-17] MEDS: IBUPROFEN 400 MG TABLET (FP) PO PRN ×2 (06:21→21:25)
[2019-12-17] MEDS: METHOCARBAMOL 500 MG TABLET PO PRN ×2 (06:21→16:52)
[2019-12-17] MEDS: hydrOXYzine PAMOATE 50 MG CAPSULE (FP) PO PRN ×4 (06:21→21:25)
[2019-12-17] MEDS: NICOTINE 14 MG/24 HOURS TOPICAL PATCH TD SCH (09:57)
[2019-12-17] MEDS: BUPRENORPHINE/NALOXONE 2 MG/0.5 MG FILM PACKET SL SCH ×2 (09:57→21:26)
[2019-12-17] MEDS: SULFAMETHOXAZOLE/TRIMETHOPRIM 800MG/160MG D.S. TABLET PO SCH ×2 (09:58→21:25)
[2019-12-17] MEDS: GABAPENTIN 300 MG CAPSULE PO SCH (09:58)
[2019-12-17] MEDS: PRENATAL VITAMINS W/ FOLIC ACID TABLET (FP) PO SCH (09:58)
[2019-12-17] MEDS: QUEtiapine FUMARATE 50 MG TABLET PO SCH (09:58)
[2019-12-17] MEDS: QUEtiapine FUMARATE 100 MG TABLET (FP) PO SCH (21:25)
[2019-12-17] MEDS: THIAMINE HCL 100 MG TABLET (FP) PO SCH (21:25)
[2019-12-17] MEDS: MELATONIN 5 MG TABLETS PO PRN (21:26)
[2019-12-18] MEDS: METHOCARBAMOL 500 MG TABLET PO PRN ×2 (06:37→12:51)
[2019-12-18] MEDS: IBUPROFEN 400 MG TABLET (FP) PO PRN ×2 (06:38→17:03)
[2019-12-18] MEDS: hydrOXYzine PAMOATE 50 MG CAPSULE (FP) PO PRN ×3 (06:38→22:03)
[2019-12-18] MEDS ORDERED: PT OWN MED DRAWER 7, Y5N ONE ×2 (09:04→21:07)
[2019-12-18] MEDS: PRENATAL VITAMINS W/ FOLIC ACID TABLET (FP) PO SCH (10:16)
[2019-12-18] MEDS: NICOTINE 14 MG/24 HOURS TOPICAL PATCH TD SCH (10:16)
[2019-12-18] MEDS: SULFAMETHOXAZOLE/TRIMETHOPRIM 800MG/160MG D.S. TABLET PO SCH (10:16)
[2019-12-18] MEDS: QUEtiapine FUMARATE 50 MG TABLET PO SCH (10:16)
[2019-12-18] MEDS: GABAPENTIN 300 MG CAPSULE PO SCH (10:16)
[2019-12-18] MEDS: BUPRENORPHINE/NALOXONE 2 MG/0.5 MG FILM PACKET SL SCH ×2 (10:16→22:02)
[2019-12-18] MEDS: MELATONIN 5 MG TABLETS PO PRN (22:01)
[2019-12-18] MEDS: QUEtiapine FUMARATE 100 MG TABLET (FP) PO SCH (22:01)
[2019-12-18] MEDS: THIAMINE HCL 100 MG TABLET (FP) PO SCH (22:01)
[2019-12-19] MEDS: METHOCARBAMOL 500 MG TABLET PO PRN (05:55)
[2019-12-19] MEDS: IBUPROFEN 400 MG TABLET (FP) PO PRN (05:55)
[2019-12-19] MEDS: QUEtiapine FUMARATE 50 MG TABLET PO SCH (10:02)
[2019-12-19] MEDS: GABAPENTIN 300 MG CAPSULE PO SCH (10:02)
[2019-12-19] MEDS: PRENATAL VITAMINS W/ FOLIC ACID TABLET (FP) PO SCH (10:02)
[2019-12-19] MEDS: NICOTINE 14 MG/24 HOURS TOPICAL PATCH TD SCH (10:02)
[2019-12-19] MEDS: PANTOPRAZOLE 40 MG TABLET PO SCH (10:04)
[2019-12-19] MEDS: BUPRENORPHINE/NALOXONE 4 MG/1 MG FILM PACKET SL SCH ×2 (10:04→21:34)
[2019-12-19] MEDS: TOLNAFTATE 1% CREAM 15 GM TUBE TP SCH ×2 (10:04→21:35)
--- NOTE | 2019-12-19 10:18 | PN ---
S Progress Note Note: pt c/o itchy feet and reports hx of foot fungus. reports she takes Omeprazole for GERD. Requesting Eucerin Cream for dry skin. Wants to increase Suboxone dose. Vital Signs - 24 hr 12/19/19 12/19/19 12/19/19 00:30 03:30 07:15 Temperature 98.1 F Pulse Rate 87 Respiratory 18 18 18 Rate Blood Pressure 122/68 12/19/19 09:11 Temperature Pulse Rate 79 Respiratory Rate Blood Pressure 135/74 Alert o x 3, nad oob ambulating with steady gait/visible on the unit. A/P Recurrent Tinea Pedis Hx GERd Dry skin Suboxone MAT Increase Suboxone 4mg/1mg sl BID Tinactin cream as directed Protonix 40 mg po daily Eucerin cream apply daily hygiene.
[2019-12-19] MEDS: MINERAL OIL/PETROLAT/WATER TOPICAL CREAM 113 GM JAR TP SCH (10:41)
[2019-12-19] MEDS: hydrOXYzine PAMOATE 50 MG CAPSULE (FP) PO PRN (13:20)
[2019-12-19] MEDS: MELATONIN 5 MG TABLETS PO PRN (21:34)
[2019-12-19] MEDS: THIAMINE HCL 100 MG TABLET (FP) PO SCH (21:34)
[2019-12-19] MEDS: QUEtiapine FUMARATE 100 MG TABLET (FP) PO SCH (21:34)
[2019-12-20] MEDS: hydrOXYzine PAMOATE 50 MG CAPSULE (FP) PO PRN ×2 (02:54→10:01)
[2019-12-20] MEDS: IBUPROFEN 400 MG TABLET (FP) PO PRN (02:54)
[2019-12-20] MEDS: METHOCARBAMOL 500 MG TABLET PO PRN ×2 (02:55→22:13)
[2019-12-20] MEDS: MINERAL OIL/PETROLAT/WATER TOPICAL CREAM 113 GM JAR TP SCH (09:57)
[2019-12-20] MEDS: PRENATAL VITAMINS W/ FOLIC ACID TABLET (FP) PO SCH (09:58)
[2019-12-20] MEDS: TOLNAFTATE 1% CREAM 15 GM TUBE TP SCH ×2 (09:58→22:13)
[2019-12-20] MEDS: BUPRENORPHINE/NALOXONE 4 MG/1 MG FILM PACKET SL SCH (09:58)
[2019-12-20] MEDS: QUEtiapine FUMARATE 50 MG TABLET PO SCH (09:58)
[2019-12-20] MEDS: NICOTINE 14 MG/24 HOURS TOPICAL PATCH TD SCH (09:59)
[2019-12-20] MEDS: PANTOPRAZOLE 40 MG TABLET PO SCH (09:59)
[2019-12-20] MEDS: GABAPENTIN 300 MG CAPSULE PO SCH (09:59)
--- NOTE | 2019-12-20 10:41 | PN ---
[facility] Progress Note (SOAP) Subjective: Patient requesting to increase suboxone to 8mg BID. Increased to 4mg yesterday. Patient was on suboxone when she was in Rehab the previous admission. Did not continue in the community and relapse upon discharge. Objective: 12/20/19 13:58 Vital Signs Period Temp Pulse Resp BP Sys/Mccracken Pulse Ox Last 24 Hr 97.7 F 79-80 16-18 121-135/71-74 Laboratory Last Values Urine Color Yellow 12/16/19 11:45 Urine Appearance Clear 12/16/19 11:45 Urine pH 6.0 (5.0-8.0) 12/16/19 11:45 Ur Specific [place] 1.025 (1.010-1.035) 12/16/19 11:45 Urine Protein Negative (NEGATIVE) 12/16/19 11:45 Urine Glucose (UA) Negative (NEGATIVE) 12/16/19 11:45 Urine Ketones Negative (NEGATIVE) 12/16/19 11:45 Urine Blood Negative (NEGATIVE) 12/16/19 11:45 Urine Nitrite Negative (NEGATIVE) 12/16/19 11:45 Urine Bilirubin Negative (NEGATIVE) 12/16/19 11:45 Urine Urobilinogen 0.2 mg/dL (0.2-1.0) 12/16/19 11:45 Ur Leukocyte Esterase Trace (NEGATIVE) 12/16/19 11:45 Urine WBC (Auto) 8 /hpf (0-5) 12/16/19 11:45 Urine RBC (Auto) 1 /hpf (0-4) 12/16/19 11:45 Urine Casts (Auto) 6 /lpf (0-8) 12/16/19 11:45 U Epithel Cells (Auto) 14.3 /HPF (0-5/HPF) 12/16/19 11:45 Urine Bacteria (Auto) 166.2 /hpf (NEGATIVE) 12/16/19 11:45 P/E; general: no apparent distress HEENTM: PERRLA Neck: supple Lungs: clear Heart: s1 s2 ABD: +BS neuro: CN 2-12 intact, Assessment: substance use disorder 12/20/19 13:59 Plan: Increase suboxone to 8 mg twice a day.
[2019-12-20] MEDS ORDERED: BUPRENORPHINE/NALOXONE 4 MG/1 MG FILM PACKET SL ONE (10:50)
[2019-12-20] MEDS: BUPRENORPHINE/NALOXONE 8 MG/2 MG FILM PACKET SL SCH (17:47)
[2019-12-20] MEDS ORDERED: PT OWN MED DRAWER 7, Y5N ONE (18:04)
[2019-12-20] MEDS: MELATONIN 5 MG TABLETS PO PRN (22:12)
[2019-12-20] MEDS: THIAMINE HCL 100 MG TABLET (FP) PO SCH (22:13)
[2019-12-20] MEDS: QUEtiapine FUMARATE 100 MG TABLET (FP) PO SCH (22:13)
[2019-12-21] MEDS: hydrOXYzine PAMOATE 50 MG CAPSULE (FP) PO PRN (02:35)
[2019-12-21] MEDS: IBUPROFEN 400 MG TABLET (FP) PO PRN (02:35)
[2019-12-21] MEDS: BUPRENORPHINE/NALOXONE 8 MG/2 MG FILM PACKET SL SCH ×2 (06:39→17:50)
[2019-12-21] MEDS: NICOTINE 14 MG/24 HOURS TOPICAL PATCH TD SCH (10:48)
[2019-12-21] MEDS: PRENATAL VITAMINS W/ FOLIC ACID TABLET (FP) PO SCH (10:48)
[2019-12-21] MEDS: TOLNAFTATE 1% CREAM 15 GM TUBE TP SCH ×2 (10:48→21:34)
[2019-12-21] MEDS: MINERAL OIL/PETROLAT/WATER TOPICAL CREAM 113 GM JAR TP SCH (10:48)
[2019-12-21] MEDS: PANTOPRAZOLE 40 MG TABLET PO SCH (10:49)
[2019-12-21] MEDS: QUEtiapine FUMARATE 50 MG TABLET PO SCH (10:49)
[2019-12-21] MEDS: GABAPENTIN 300 MG CAPSULE PO SCH (10:49)
[2019-12-21] MEDS ORDERED: PT OWN MED DRAWER 7, Y5N ONE (17:47)
[2019-12-21] MEDS: THIAMINE HCL 100 MG TABLET (FP) PO SCH (21:33)
[2019-12-21] MEDS: QUEtiapine FUMARATE 100 MG TABLET (FP) PO SCH (21:33)
[2019-12-21] MEDS: MELATONIN 5 MG TABLETS PO PRN (21:33)
[2019-12-21] MEDS: METHOCARBAMOL 500 MG TABLET PO PRN (21:33)
[2019-12-22] MEDS: hydrOXYzine PAMOATE 50 MG CAPSULE (FP) PO PRN ×2 (02:53→09:59)
[2019-12-22] MEDS: IBUPROFEN 400 MG TABLET (FP) PO PRN ×2 (02:53→09:57)
[2019-12-22] MEDS: BUPRENORPHINE/NALOXONE 8 MG/2 MG FILM PACKET SL SCH ×2 (06:20→19:13)
[2019-12-22] MEDS ORDERED: PT OWN MED DRAWER 7, Y5N ONE ×2 (08:33→15:53)
[2019-12-22] MEDS: QUEtiapine FUMARATE 50 MG TABLET PO SCH (09:57)
[2019-12-22] MEDS: PRENATAL VITAMINS W/ FOLIC ACID TABLET (FP) PO SCH (09:57)
[2019-12-22] MEDS: PANTOPRAZOLE 40 MG TABLET PO SCH (09:57)
[2019-12-22] MEDS: GABAPENTIN 300 MG CAPSULE PO SCH (09:57)
[2019-12-22] MEDS: NICOTINE 14 MG/24 HOURS TOPICAL PATCH TD SCH (09:58)
[2019-12-22] MEDS: MINERAL OIL/PETROLAT/WATER TOPICAL CREAM 113 GM JAR TP SCH (10:00)
[2019-12-22] MEDS: TOLNAFTATE 1% CREAM 15 GM TUBE TP SCH ×2 (10:00→21:51)
[2019-12-22] MEDS: LIDOCAINE 5% TOPICAL PATCH TP SCH (12:55)
[2019-12-22] MEDS: METHOCARBAMOL 500 MG TABLET PO PRN ×2 (15:59→21:50)
[2019-12-22] MEDS: ACETAMINOPHEN 325 MG TABLET (FP) PO PRN (15:59)
[2019-12-22] MEDS: MELATONIN 5 MG TABLETS PO PRN (21:50)
[2019-12-22] MEDS: QUEtiapine FUMARATE 100 MG TABLET (FP) PO SCH (21:50)
[2019-12-22] MEDS: THIAMINE HCL 100 MG TABLET (FP) PO SCH (21:50)
[2019-12-22] MEDS: LIDOCAINE PATCH REMOVAL MC SCH (21:51)
[2019-12-22] MEDS: METHYL SALICYLATE/MENTHOL OINT 30 GM TUBE TP SCH (21:51)
[2019-12-23] MEDS: IBUPROFEN 400 MG TABLET (FP) PO PRN ×2 (06:22→17:46)
[2019-12-23] MEDS: BUPRENORPHINE/NALOXONE 8 MG/2 MG FILM PACKET SL SCH ×2 (06:22→17:46)
[2019-12-23] MEDS ORDERED: PT OWN MED DRAWER 7, Y5N ONE (08:33)
[2019-12-23] MEDS: NICOTINE 14 MG/24 HOURS TOPICAL PATCH TD SCH (09:53)
[2019-12-23] MEDS: PRENATAL VITAMINS W/ FOLIC ACID TABLET (FP) PO SCH (09:54)
[2019-12-23] MEDS: GABAPENTIN 300 MG CAPSULE PO SCH (09:54)
[2019-12-23] MEDS: LIDOCAINE 5% TOPICAL PATCH TP SCH (09:54)
[2019-12-23] MEDS: QUEtiapine FUMARATE 50 MG TABLET PO SCH (09:54)
[2019-12-23] MEDS: MINERAL OIL/PETROLAT/WATER TOPICAL CREAM 113 GM JAR TP SCH (09:54)
[2019-12-23] MEDS: TOLNAFTATE 1% CREAM 15 GM TUBE TP SCH ×2 (09:54→21:38)
[2019-12-23] MEDS: hydrOXYzine PAMOATE 50 MG CAPSULE (FP) PO PRN ×2 (09:56→21:36)
[2019-12-23] MEDS: PANTOPRAZOLE 40 MG TABLET PO SCH (09:57)
--- NOTE | 2019-12-23 10:50 | PN ---
[facility] Progress Note Note: Patient has hx of chronic knee pain due to OA. Patient states knee pain is progressively getting worse, level of pain now 8/10. Non-radiating, described as dull ache. Vital Signs Period Temp Pulse Resp BP Sys/Mccracken Pulse Ox Last 24 Hr 97.8 F-98.0 F 81-85 18-18 114-122/60-73 Laboratory Tests 12/16/19 11:45 Urine Color Yellow Urine Appearance Clear Urine pH 6.0 Ur Specific [place] 1.025 Urine Protein Negative Urine Glucose (UA) Negative Urine Ketones Negative Urine Blood Negative Urine Nitrite Negative Urine Bilirubin Negative Urine Urobilinogen 0.2 Ur Leukocyte Esterase Trace Urine WBC (Auto) 8 Urine RBC (Auto) 1 Urine Casts (Auto) 6 U Epithel Cells (Auto) 14.3 Urine Bacteria (Auto) 166.2 PE: alert and oriented x 3 skin warm and dry ms amb with limp, wearing fitted jeans so exam limited, no ankle edema noted A/P; chronic knee discomfort Hx of OA will check bilateral knee xrays continue apap/motrin prn patient encouraged to have frequent rest periods and elevate legs prn
[2019-12-23] MEDS: QUEtiapine FUMARATE 100 MG TABLET (FP) PO SCH (21:36)
[2019-12-23] MEDS: THIAMINE HCL 100 MG TABLET (FP) PO SCH (21:36)
[2019-12-23] MEDS: MELATONIN 5 MG TABLETS PO PRN (21:36)
[2019-12-23] MEDS: METHYL SALICYLATE/MENTHOL OINT 30 GM TUBE TP SCH (21:37)
[2019-12-23] MEDS: LIDOCAINE PATCH REMOVAL MC SCH (21:37)
[2019-12-24] MEDS: IBUPROFEN 400 MG TABLET (FP) PO PRN ×2 (06:24→22:12)
[2019-12-24] MEDS: BUPRENORPHINE/NALOXONE 8 MG/2 MG FILM PACKET SL SCH ×2 (06:25→18:13)
[2019-12-24] MEDS: MINERAL OIL/PETROLAT/WATER TOPICAL CREAM 113 GM JAR TP SCH (09:32)
[2019-12-24] MEDS: LIDOCAINE 5% TOPICAL PATCH TP SCH (09:32)
[2019-12-24] MEDS: NICOTINE 14 MG/24 HOURS TOPICAL PATCH TD SCH (09:33)
[2019-12-24] MEDS: PRENATAL VITAMINS W/ FOLIC ACID TABLET (FP) PO SCH (09:34)
[2019-12-24] MEDS: GABAPENTIN 300 MG CAPSULE PO SCH (09:34)
[2019-12-24] MEDS: PANTOPRAZOLE 40 MG TABLET PO SCH (09:35)
[2019-12-24] MEDS: TOLNAFTATE 1% CREAM 15 GM TUBE TP SCH ×2 (09:36→22:12)
[2019-12-24] MEDS: QUEtiapine FUMARATE 50 MG TABLET PO SCH (09:36)
[2019-12-24] MEDS: hydrOXYzine PAMOATE 50 MG CAPSULE (FP) PO PRN (09:38)
[2019-12-24] MEDS ORDERED: PT OWN MED DRAWER 7, Y5N ONE ×2 (19:27→22:13)
[2019-12-24] MEDS: QUEtiapine FUMARATE 100 MG TABLET (FP) PO SCH (21:24)
[2019-12-24] MEDS: THIAMINE HCL 100 MG TABLET (FP) PO SCH (21:24)
[2019-12-24] MEDS: MELATONIN 5 MG TABLETS PO PRN (21:24)
[2019-12-24] MEDS: METHYL SALICYLATE/MENTHOL OINT 30 GM TUBE TP SCH (21:24)
[2019-12-24] MEDS: LIDOCAINE PATCH REMOVAL MC SCH (22:00)
[2019-12-25] MEDS: ACETAMINOPHEN 325 MG TABLET (FP) PO PRN ×2 (03:41→22:03)
[2019-12-25] MEDS: hydrOXYzine PAMOATE 50 MG CAPSULE (FP) PO PRN ×2 (03:41→22:04)
[2019-12-25] MEDS: BUPRENORPHINE/NALOXONE 8 MG/2 MG FILM PACKET SL SCH ×2 (06:36→17:18)
[2019-12-25] MEDS: MINERAL OIL/PETROLAT/WATER TOPICAL CREAM 113 GM JAR TP SCH (09:06)
[2019-12-25] MEDS: LIDOCAINE 5% TOPICAL PATCH TP SCH (09:07)
[2019-12-25] MEDS: PANTOPRAZOLE 40 MG TABLET PO SCH (09:08)
[2019-12-25] MEDS: PRENATAL VITAMINS W/ FOLIC ACID TABLET (FP) PO SCH (09:08)
[2019-12-25] MEDS: GABAPENTIN 300 MG CAPSULE PO SCH (09:08)
[2019-12-25] MEDS: NICOTINE 14 MG/24 HOURS TOPICAL PATCH TD SCH (09:08)
[2019-12-25] MEDS: QUEtiapine FUMARATE 50 MG TABLET PO SCH (09:08)
[2019-12-25] MEDS: TOLNAFTATE 1% CREAM 15 GM TUBE TP SCH ×2 (09:09→22:03)
[2019-12-25] MEDS: MAG HYDROX/AL HYDROX/SIMETH 30 ML UNIT-DOSE CUP PO PRN (10:53)
[2019-12-25] MEDS: METHYL SALICYLATE/MENTHOL OINT 30 GM TUBE TP SCH (22:02)
[2019-12-25] MEDS: LIDOCAINE PATCH REMOVAL MC SCH (22:02)
[2019-12-25] MEDS: THIAMINE HCL 100 MG TABLET (FP) PO SCH (22:03)
[2019-12-25] MEDS: QUEtiapine FUMARATE 100 MG TABLET (FP) PO SCH (22:03)
[2019-12-25] MEDS: MELATONIN 5 MG TABLETS PO PRN (22:03)
[2019-12-26] MEDS: IBUPROFEN 400 MG TABLET (FP) PO PRN (00:41)
[2019-12-26] MEDS: METHOCARBAMOL 500 MG TABLET PO PRN ×2 (00:41→21:39)
[2019-12-26] MEDS: BUPRENORPHINE/NALOXONE 8 MG/2 MG FILM PACKET SL SCH ×2 (06:28→18:01)
[2019-12-26] MEDS: NICOTINE 14 MG/24 HOURS TOPICAL PATCH TD SCH (09:52)
[2019-12-26] MEDS: QUEtiapine FUMARATE 50 MG TABLET PO SCH (09:53)
[2019-12-26] MEDS: PANTOPRAZOLE 40 MG TABLET PO SCH (09:53)
[2019-12-26] MEDS: PRENATAL VITAMINS W/ FOLIC ACID TABLET (FP) PO SCH (09:53)
[2019-12-26] MEDS: GABAPENTIN 300 MG CAPSULE PO SCH (09:53)
[2019-12-26] MEDS: MINERAL OIL/PETROLAT/WATER TOPICAL CREAM 113 GM JAR TP SCH (09:53)
[2019-12-26] MEDS: LIDOCAINE 5% TOPICAL PATCH TP SCH (09:54)
[2019-12-26] MEDS: TOLNAFTATE 1% CREAM 15 GM TUBE TP SCH ×2 (09:54→21:40)
[2019-12-26] MEDS ORDERED: COLLOIDAL OATMEAL 1 BAR EACH TP PRN (12:22)
--- NOTE | 2019-12-26 12:36 | PN ---
[facility] Progress Note Note: Patient seen for follow up XRAY of knees. XRAY negative for focal lesions and/ or acute fractures. + degenerative changes. Patient given results and explained condition is chronic and medically advised to follow up with PCP for Orthopedic consult. Patient to continue current conservative treatment with IBU/APAP prn for pain management. Vital Signs Temperature 98.1 F 12/26/19 06:30 Pulse Rate 77 12/26/19 06:30 Respiratory Rate 18 12/26/19 06:30 Blood Pressure 112/74 12/26/19 06:30 O2 Sat by Pulse Oximetry (%) Laboratory Tests 12/16/19 11:45 Urine Color Yellow Urine Appearance Clear Urine pH 6.0 Ur Specific [place] 1.025 Urine Protein Negative Urine Glucose (UA) Negative Urine Ketones Negative Urine Blood Negative Urine Nitrite Negative Urine Bilirubin Negative Urine Urobilinogen 0.2 Ur Leukocyte Esterase Trace Urine WBC (Auto) 8 Urine RBC (Auto) 1 Urine Casts (Auto) 6 U Epithel Cells (Auto) 14.3 Urine Bacteria (Auto) 166.2
[2019-12-26] MEDS: THIAMINE HCL 100 MG TABLET (FP) PO SCH (21:39)
[2019-12-26] MEDS: QUEtiapine FUMARATE 100 MG TABLET (FP) PO SCH (21:39)
[2019-12-26] MEDS: hydrOXYzine PAMOATE 50 MG CAPSULE (FP) PO PRN (21:39)
[2019-12-26] MEDS: MELATONIN 5 MG TABLETS PO PRN (21:39)
[2019-12-26] MEDS: LIDOCAINE PATCH REMOVAL MC SCH (21:40)
[2019-12-26] MEDS: METHYL SALICYLATE/MENTHOL OINT 30 GM TUBE TP SCH (21:41)
[2019-12-27] MEDS: MAG HYDROX/AL HYDROX/SIMETH 30 ML UNIT-DOSE CUP PO PRN (03:29)
[2019-12-27] MEDS: IBUPROFEN 400 MG TABLET (FP) PO PRN (03:29)
[2019-12-27] MEDS: BUPRENORPHINE/NALOXONE 8 MG/2 MG FILM PACKET SL SCH ×2 (06:08→17:32)
[2019-12-27] MEDS: LIDOCAINE 5% TOPICAL PATCH TP SCH (09:58)
[2019-12-27] MEDS: NICOTINE 14 MG/24 HOURS TOPICAL PATCH TD SCH (09:58)
[2019-12-27] MEDS: PRENATAL VITAMINS W/ FOLIC ACID TABLET (FP) PO SCH (09:58)
[2019-12-27] MEDS: GABAPENTIN 300 MG CAPSULE PO SCH (09:59)
[2019-12-27] MEDS: PANTOPRAZOLE 40 MG TABLET PO SCH (09:59)
[2019-12-27] MEDS: QUEtiapine FUMARATE 50 MG TABLET PO SCH (09:59)
[2019-12-27] MEDS: MINERAL OIL/PETROLAT/WATER TOPICAL CREAM 113 GM JAR TP SCH (10:00)
[2019-12-27] MEDS: TOLNAFTATE 1% CREAM 15 GM TUBE TP SCH ×2 (10:00→21:15)
[2019-12-27] MEDS: hydrOXYzine PAMOATE 50 MG CAPSULE (FP) PO PRN ×2 (10:02→21:14)
[2019-12-27] MEDS ORDERED: SIMETHICONE 80 MG TAB.CHEW (FP) PO PRN (14:17)
[2019-12-27] MEDS: QUEtiapine FUMARATE 100 MG TABLET (FP) PO SCH (21:14)
[2019-12-27] MEDS: MELATONIN 5 MG TABLETS PO PRN (21:14)
[2019-12-27] MEDS: METHOCARBAMOL 500 MG TABLET PO PRN (21:14)
[2019-12-27] MEDS: METHYL SALICYLATE/MENTHOL OINT 30 GM TUBE TP SCH (21:14)
[2019-12-27] MEDS: THIAMINE HCL 100 MG TABLET (FP) PO SCH (21:14)
[2019-12-27] MEDS: LIDOCAINE PATCH REMOVAL MC SCH (21:14)
[2019-12-28] MEDS: IBUPROFEN 400 MG TABLET (FP) PO PRN ×2 (04:00→11:40)
[2019-12-28] MEDS: BUPRENORPHINE/NALOXONE 8 MG/2 MG FILM PACKET SL SCH ×2 (06:04→17:27)
[2019-12-28] MEDS: MINERAL OIL/PETROLAT/WATER TOPICAL CREAM 113 GM JAR TP SCH (09:51)
[2019-12-28] MEDS: QUEtiapine FUMARATE 50 MG TABLET PO SCH (09:52)
[2019-12-28] MEDS: NICOTINE 14 MG/24 HOURS TOPICAL PATCH TD SCH (09:52)
[2019-12-28] MEDS: GABAPENTIN 300 MG CAPSULE PO SCH (09:52)
[2019-12-28] MEDS: PANTOPRAZOLE 40 MG TABLET PO SCH (09:52)
[2019-12-28] MEDS: PRENATAL VITAMINS W/ FOLIC ACID TABLET (FP) PO SCH (09:52)
[2019-12-28] MEDS: TOLNAFTATE 1% CREAM 15 GM TUBE TP SCH ×2 (09:53→21:02)
[2019-12-28] MEDS: hydrOXYzine PAMOATE 50 MG CAPSULE (FP) PO PRN (09:54)
[2019-12-28] MEDS: THIAMINE HCL 100 MG TABLET (FP) PO SCH (21:02)
[2019-12-28] MEDS: MELATONIN 5 MG TABLETS PO PRN (21:02)
[2019-12-28] MEDS: QUEtiapine FUMARATE 100 MG TABLET (FP) PO SCH (21:02)
[2019-12-28] MEDS: METHOCARBAMOL 500 MG TABLET PO PRN (21:02)
[2019-12-28] MEDS: LIDOCAINE PATCH REMOVAL MC SCH (21:03)
[2019-12-28] MEDS: METHYL SALICYLATE/MENTHOL OINT 30 GM TUBE TP SCH (21:03)
[2019-12-29] MEDS: IBUPROFEN 400 MG TABLET (FP) PO PRN ×2 (01:18→21:56)
[2019-12-29] MEDS: hydrOXYzine PAMOATE 50 MG CAPSULE (FP) PO PRN ×3 (01:18→21:57)
[2019-12-29] MEDS: ACETAMINOPHEN 325 MG TABLET (FP) PO PRN (06:23)
[2019-12-29] MEDS: BUPRENORPHINE/NALOXONE 8 MG/2 MG FILM PACKET SL SCH ×2 (06:23→17:32)
[2019-12-29] MEDS: TOLNAFTATE 1% CREAM 15 GM TUBE TP SCH ×2 (09:52→21:58)
[2019-12-29] MEDS: GABAPENTIN 300 MG CAPSULE PO SCH (09:52)
[2019-12-29] MEDS: QUEtiapine FUMARATE 50 MG TABLET PO SCH (09:52)
[2019-12-29] MEDS: PRENATAL VITAMINS W/ FOLIC ACID TABLET (FP) PO SCH (09:52)
[2019-12-29] MEDS: PANTOPRAZOLE 40 MG TABLET PO SCH (09:52)
[2019-12-29] MEDS: NICOTINE 14 MG/24 HOURS TOPICAL PATCH TD SCH (09:53)
[2019-12-29] MEDS: MINERAL OIL/PETROLAT/WATER TOPICAL CREAM 113 GM JAR TP SCH (09:55)
[2019-12-29] MEDS: THIAMINE HCL 100 MG TABLET (FP) PO SCH (21:56)
[2019-12-29] MEDS: QUEtiapine FUMARATE 100 MG TABLET (FP) PO SCH (21:57)
[2019-12-29] MEDS: METHOCARBAMOL 500 MG TABLET PO PRN (21:57)
[2019-12-29] MEDS: MELATONIN 5 MG TABLETS PO PRN (21:57)
[2019-12-29] MEDS: LIDOCAINE PATCH REMOVAL MC SCH (21:58)
[2019-12-29] MEDS: METHYL SALICYLATE/MENTHOL OINT 30 GM TUBE TP SCH (21:58)
[2019-12-30] MEDS: IBUPROFEN 400 MG TABLET (FP) PO PRN (05:10)
[2019-12-30] MEDS: BUPRENORPHINE/NALOXONE 8 MG/2 MG FILM PACKET SL SCH ×2 (06:21→17:21)
[2019-12-30] MEDS: ACETAMINOPHEN 325 MG TABLET (FP) PO PRN ×2 (06:21→15:36)
[2019-12-30] MEDS ORDERED: PT OWN MED DRAWER 7, Y5N ONE ×2 (08:22→15:35)
[2019-12-30] MEDS: GABAPENTIN 300 MG CAPSULE PO SCH (10:01)
[2019-12-30] MEDS: MINERAL OIL/PETROLAT/WATER TOPICAL CREAM 113 GM JAR TP SCH (10:01)
[2019-12-30] MEDS: NICOTINE 14 MG/24 HOURS TOPICAL PATCH TD SCH (10:01)
[2019-12-30] MEDS: QUEtiapine FUMARATE 50 MG TABLET PO SCH (10:02)
[2019-12-30] MEDS: PRENATAL VITAMINS W/ FOLIC ACID TABLET (FP) PO SCH (10:02)
[2019-12-30] MEDS: TOLNAFTATE 1% CREAM 15 GM TUBE TP SCH ×2 (10:02→21:01)
[2019-12-30] MEDS: PANTOPRAZOLE 40 MG TABLET PO SCH (10:02)
[2019-12-30] MEDS: hydrOXYzine PAMOATE 50 MG CAPSULE (FP) PO PRN ×3 (10:03→21:03)
[2019-12-30] MEDS: METHOCARBAMOL 500 MG TABLET PO PRN (10:04)
[2019-12-30] MEDS: ALBUTEROL SO4 HFA INHALER IH PRN ×2 (11:31→21:03)
[2019-12-30] MEDS: THIAMINE HCL 100 MG TABLET (FP) PO SCH (21:01)
[2019-12-30] MEDS: QUEtiapine FUMARATE 100 MG TABLET (FP) PO SCH (21:01)
[2019-12-30] MEDS: METHYL SALICYLATE/MENTHOL OINT 30 GM TUBE TP SCH (21:01)
[2019-12-30] MEDS: MELATONIN 5 MG TABLETS PO PRN (21:02)
[2019-12-30] MEDS: LIDOCAINE PATCH REMOVAL MC SCH (22:46)
[2019-12-31] MEDS: IBUPROFEN 400 MG TABLET (FP) PO PRN (06:06)
[2019-12-31] MEDS: BUPRENORPHINE/NALOXONE 8 MG/2 MG FILM PACKET SL SCH ×2 (06:06→18:39)
[2019-12-31] MEDS: QUEtiapine FUMARATE 50 MG TABLET PO SCH (10:04)
[2019-12-31] MEDS: PANTOPRAZOLE 40 MG TABLET PO SCH (10:04)
[2019-12-31] MEDS: TOLNAFTATE 1% CREAM 15 GM TUBE TP SCH ×2 (10:04→21:15)
[2019-12-31] MEDS: MINERAL OIL/PETROLAT/WATER TOPICAL CREAM 113 GM JAR TP SCH (10:04)
[2019-12-31] MEDS: GABAPENTIN 300 MG CAPSULE PO SCH (10:04)
[2019-12-31] MEDS: PRENATAL VITAMINS W/ FOLIC ACID TABLET (FP) PO SCH (10:04)
[2019-12-31] MEDS: NICOTINE 14 MG/24 HOURS TOPICAL PATCH TD SCH (10:05)
[2019-12-31] MEDS: ALBUTEROL SO4 HFA INHALER IH PRN (10:06)
[2019-12-31] MEDS: hydrOXYzine PAMOATE 50 MG CAPSULE (FP) PO PRN (12:33)
[2019-12-31] MEDS: MAGNESIUM HYDROX 2400MG/30ML ORAL SUSPENSION 30 ML CUP PO PRN (18:20)
[2019-12-31] MEDS: THIAMINE HCL 100 MG TABLET (FP) PO SCH (21:13)
[2019-12-31] MEDS: MELATONIN 5 MG TABLETS PO PRN (21:13)
[2019-12-31] MEDS: QUEtiapine FUMARATE 100 MG TABLET (FP) PO SCH (21:14)
[2019-12-31] MEDS: METHOCARBAMOL 500 MG TABLET PO PRN (21:14)
[2019-12-31] MEDS: LIDOCAINE PATCH REMOVAL MC SCH (21:14)
[2019-12-31] MEDS: METHYL SALICYLATE/MENTHOL OINT 30 GM TUBE TP SCH (21:15)
[2020-01-01] MEDS: IBUPROFEN 400 MG TABLET (FP) PO PRN (05:27)
[2020-01-01] MEDS: BUPRENORPHINE/NALOXONE 8 MG/2 MG FILM PACKET SL SCH ×2 (06:12→17:40)
[2020-01-01] MEDS: NICOTINE 14 MG/24 HOURS TOPICAL PATCH TD SCH (10:09)
[2020-01-01] MEDS: PRENATAL VITAMINS W/ FOLIC ACID TABLET (FP) PO SCH (10:10)
[2020-01-01] MEDS: PANTOPRAZOLE 40 MG TABLET PO SCH (10:10)
[2020-01-01] MEDS: GABAPENTIN 300 MG CAPSULE PO SCH (10:10)
[2020-01-01] MEDS: QUEtiapine FUMARATE 50 MG TABLET PO SCH (10:11)
[2020-01-01] MEDS: TOLNAFTATE 1% CREAM 15 GM TUBE TP SCH ×2 (10:11→21:17)
[2020-01-01] MEDS: MINERAL OIL/PETROLAT/WATER TOPICAL CREAM 113 GM JAR TP SCH (10:12)
[2020-01-01] MEDS: hydrOXYzine PAMOATE 50 MG CAPSULE (FP) PO PRN ×2 (10:14→21:17)
[2020-01-01] MEDS: THIAMINE HCL 100 MG TABLET (FP) PO SCH (21:16)
[2020-01-01] MEDS: MELATONIN 5 MG TABLETS PO PRN (21:17)
[2020-01-01] MEDS: METHOCARBAMOL 500 MG TABLET PO PRN (21:17)
[2020-01-01] MEDS: QUEtiapine FUMARATE 100 MG TABLET (FP) PO SCH (21:17)
[2020-01-01] MEDS: METHYL SALICYLATE/MENTHOL OINT 30 GM TUBE TP SCH (21:18)
[2020-01-01] MEDS: LIDOCAINE PATCH REMOVAL MC SCH (21:18)
[2020-01-02] MEDS: IBUPROFEN 400 MG TABLET (FP) PO PRN ×2 (01:36→13:03)
[2020-01-02] MEDS: BUPRENORPHINE/NALOXONE 8 MG/2 MG FILM PACKET SL SCH ×2 (06:13→18:02)
[2020-01-02] MEDS ORDERED: PT OWN MED DRAWER 7, Y5N ONE (08:40)
[2020-01-02] MEDS: PANTOPRAZOLE 40 MG TABLET PO SCH (09:44)
[2020-01-02] MEDS: PRENATAL VITAMINS W/ FOLIC ACID TABLET (FP) PO SCH (09:44)
[2020-01-02] MEDS: QUEtiapine FUMARATE 50 MG TABLET PO SCH (09:44)
[2020-01-02] MEDS: NICOTINE 14 MG/24 HOURS TOPICAL PATCH TD SCH (09:44)
[2020-01-02] MEDS: GABAPENTIN 300 MG CAPSULE PO SCH (09:44)
[2020-01-02] MEDS: hydrOXYzine PAMOATE 50 MG CAPSULE (FP) PO PRN (09:45)
[2020-01-02] MEDS: MINERAL OIL/PETROLAT/WATER TOPICAL CREAM 113 GM JAR TP SCH (09:46)
[2020-01-02] MEDS: TOLNAFTATE 1% CREAM 15 GM TUBE TP SCH ×2 (09:46→21:21)
[2020-01-02] MEDS: THIAMINE HCL 100 MG TABLET (FP) PO SCH (21:20)
[2020-01-02] MEDS: QUEtiapine FUMARATE 100 MG TABLET (FP) PO SCH (21:20)
[2020-01-02] MEDS: METHOCARBAMOL 500 MG TABLET PO PRN (21:20)
[2020-01-02] MEDS: LIDOCAINE PATCH REMOVAL MC SCH (21:21)
[2020-01-02] MEDS: METHYL SALICYLATE/MENTHOL OINT 30 GM TUBE TP SCH (21:21)
[2020-01-02] MEDS: MELATONIN 5 MG TABLETS PO PRN (21:21)
[2020-01-03] MEDS: IBUPROFEN 400 MG TABLET (FP) PO PRN ×2 (02:01→21:18)
[2020-01-03] MEDS: hydrOXYzine PAMOATE 50 MG CAPSULE (FP) PO PRN ×2 (02:01→21:19)
[2020-01-03] MEDS: BUPRENORPHINE/NALOXONE 8 MG/2 MG FILM PACKET SL SCH ×2 (06:20→17:20)
[2020-01-03] MEDS: NICOTINE 14 MG/24 HOURS TOPICAL PATCH TD SCH (10:08)
[2020-01-03] MEDS: PRENATAL VITAMINS W/ FOLIC ACID TABLET (FP) PO SCH (10:08)
[2020-01-03] MEDS: PANTOPRAZOLE 40 MG TABLET PO SCH (10:08)
[2020-01-03] MEDS: QUEtiapine FUMARATE 50 MG TABLET PO SCH (10:08)
[2020-01-03] MEDS: TOLNAFTATE 1% CREAM 15 GM TUBE TP SCH ×2 (10:08→21:37)
[2020-01-03] MEDS: GABAPENTIN 300 MG CAPSULE PO SCH (10:08)
[2020-01-03] MEDS: MINERAL OIL/PETROLAT/WATER TOPICAL CREAM 113 GM JAR TP SCH (10:08)
[2020-01-03] MEDS: ALBUTEROL SO4 HFA INHALER IH PRN (10:09)
--- NOTE | 2020-01-03 13:46 | PN ---
[facility] Progress Note (SOAP) Subjective: patient c/o burning on urination with odor and yellow discharge. Objective: General: no apparent distress Genitourinary: deferred neuro: Cn 2-12 intact MSK: full weight bearing, steady gait. ABD; +BS 01/03/20 13:45 01/03/20 13:46 Urine Test Results Urine Color Yellow 12/16/19 11:45 Urine Appearance Clear 12/16/19 11:45 Urine pH 6.0 (5.0-8.0) 12/16/19 11:45 Ur Specific [place] 1.025 (1.010-1.035) 12/16/19 11:45 Urine Protein Negative (NEGATIVE) 12/16/19 11:45 Urine Glucose (UA) Negative (NEGATIVE) 12/16/19 11:45 Urine Ketones Negative (NEGATIVE) 12/16/19 11:45 Urine Blood Negative (NEGATIVE) 12/16/19 11:45 Urine Nitrite Negative (NEGATIVE) 12/16/19 11:45 Urine Bilirubin Negative (NEGATIVE) 12/16/19 11:45 Ur Leukocyte Esterase Trace (NEGATIVE) 12/16/19 11:45 Vital Signs Period Temp Pulse Resp BP Sys/Mccracken Pulse Ox Last 24 Hr 98.1 F 86 18-18 100/63 Assessment: Probable UTI 01/03/20 13:46 Plan: Urine culture ordered. bactrim ordered
[2020-01-03] MEDS: SULFAMETHOXAZOLE/TRIMETHOPRIM 800MG/160MG D.S. TABLET PO SCH (14:48)
[2020-01-03] MEDS ORDERED: PT OWN MED DRAWER 7, Y5N ONE (18:57)
[2020-01-03] MEDS: THIAMINE HCL 100 MG TABLET (FP) PO SCH (21:18)
[2020-01-03] MEDS: LIDOCAINE PATCH REMOVAL MC SCH (21:18)
[2020-01-03] MEDS: MELATONIN 5 MG TABLETS PO PRN (21:19)
[2020-01-03] MEDS: METHOCARBAMOL 500 MG TABLET PO PRN (21:19)
[2020-01-03] MEDS: METHYL SALICYLATE/MENTHOL OINT 30 GM TUBE TP SCH (21:20)
[2020-01-03] MEDS: QUEtiapine FUMARATE 100 MG TABLET (FP) PO SCH (21:20)
[2020-01-04] MEDS: ACETAMINOPHEN 325 MG TABLET (FP) PO PRN (03:36)
[2020-01-04] MEDS: hydrOXYzine PAMOATE 50 MG CAPSULE (FP) PO PRN ×2 (03:37→09:56)
[2020-01-04] MEDS: BUPRENORPHINE/NALOXONE 8 MG/2 MG FILM PACKET SL SCH ×2 (06:17→17:24)
[2020-01-04] MEDS: MINERAL OIL/PETROLAT/WATER TOPICAL CREAM 113 GM JAR TP SCH (09:54)
[2020-01-04] MEDS: GABAPENTIN 300 MG CAPSULE PO SCH (09:54)
[2020-01-04] MEDS: SULFAMETHOXAZOLE/TRIMETHOPRIM 800MG/160MG D.S. TABLET PO SCH (09:54)
[2020-01-04] MEDS: QUEtiapine FUMARATE 50 MG TABLET PO SCH (09:55)
[2020-01-04] MEDS: NICOTINE 14 MG/24 HOURS TOPICAL PATCH TD SCH (09:55)
[2020-01-04] MEDS: PRENATAL VITAMINS W/ FOLIC ACID TABLET (FP) PO SCH (09:55)
[2020-01-04] MEDS: PANTOPRAZOLE 40 MG TABLET PO SCH (09:55)
[2020-01-04] MEDS: TOLNAFTATE 1% CREAM 15 GM TUBE TP SCH ×2 (09:56→21:32)
[2020-01-04] MEDS: METHOCARBAMOL 500 MG TABLET PO PRN (21:31)
[2020-01-04] MEDS: THIAMINE HCL 100 MG TABLET (FP) PO SCH (21:31)
[2020-01-04] MEDS: MELATONIN 5 MG TABLETS PO PRN (21:31)
[2020-01-04] MEDS: QUEtiapine FUMARATE 100 MG TABLET (FP) PO SCH (21:31)
[2020-01-04] MEDS: METHYL SALICYLATE/MENTHOL OINT 30 GM TUBE TP SCH (21:32)
[2020-01-04] MEDS: LIDOCAINE PATCH REMOVAL MC SCH (21:32)
[2020-01-05] MEDS: hydrOXYzine PAMOATE 50 MG CAPSULE (FP) PO PRN ×3 (03:40→16:01)
[2020-01-05] MEDS: IBUPROFEN 400 MG TABLET (FP) PO PRN ×2 (03:40→15:59)
[2020-01-05] MEDS: BUPRENORPHINE/NALOXONE 8 MG/2 MG FILM PACKET SL SCH ×2 (06:21→17:27)
[2020-01-05] MEDS: NICOTINE 14 MG/24 HOURS TOPICAL PATCH TD SCH (10:17)
[2020-01-05] MEDS: METHOCARBAMOL 500 MG TABLET PO PRN (10:18)
[2020-01-05] MEDS: PANTOPRAZOLE 40 MG TABLET PO SCH (10:18)
[2020-01-05] MEDS: GABAPENTIN 300 MG CAPSULE PO SCH (10:18)
[2020-01-05] MEDS: QUEtiapine FUMARATE 50 MG TABLET PO SCH (10:18)
[2020-01-05] MEDS: PRENATAL VITAMINS W/ FOLIC ACID TABLET (FP) PO SCH (10:18)
[2020-01-05] MEDS: TOLNAFTATE 1% CREAM 15 GM TUBE TP SCH ×2 (10:18→21:40)
[2020-01-05] MEDS: MINERAL OIL/PETROLAT/WATER TOPICAL CREAM 113 GM JAR TP SCH (10:19)
[2020-01-05] MEDS: ALBUTEROL SO4 HFA INHALER IH PRN (10:19)
[2020-01-05] MEDS: SULFAMETHOXAZOLE/TRIMETHOPRIM 800MG/160MG D.S. TABLET PO SCH (10:19)
[2020-01-05] MEDS: MAGNESIUM HYDROX 2400MG/30ML ORAL SUSPENSION 30 ML CUP PO PRN (16:00)
[2020-01-05] MEDS: QUEtiapine FUMARATE 100 MG TABLET (FP) PO SCH (21:38)
[2020-01-05] MEDS: MELATONIN 5 MG TABLETS PO PRN (21:38)
[2020-01-05] MEDS: THIAMINE HCL 100 MG TABLET (FP) PO SCH (21:38)
[2020-01-05] MEDS: LIDOCAINE PATCH REMOVAL MC SCH (21:39)
[2020-01-05] MEDS: METHYL SALICYLATE/MENTHOL OINT 30 GM TUBE TP SCH (21:40)
[2020-01-06] MEDS: BUPRENORPHINE/NALOXONE 8 MG/2 MG FILM PACKET SL SCH ×2 (06:49→17:21)
[2020-01-06] MEDS: PANTOPRAZOLE 40 MG TABLET PO SCH (09:53)
[2020-01-06] MEDS: PRENATAL VITAMINS W/ FOLIC ACID TABLET (FP) PO SCH (09:53)
[2020-01-06] MEDS: SULFAMETHOXAZOLE/TRIMETHOPRIM 800MG/160MG D.S. TABLET PO SCH (09:53)
[2020-01-06] MEDS: NICOTINE 14 MG/24 HOURS TOPICAL PATCH TD SCH (09:53)
[2020-01-06] MEDS: QUEtiapine FUMARATE 50 MG TABLET PO SCH (09:53)
[2020-01-06] MEDS: GABAPENTIN 300 MG CAPSULE PO SCH (09:53)
[2020-01-06] MEDS: MINERAL OIL/PETROLAT/WATER TOPICAL CREAM 113 GM JAR TP SCH (09:53)
[2020-01-06] MEDS: TOLNAFTATE 1% CREAM 15 GM TUBE TP SCH ×2 (09:54→21:48)
[2020-01-06] MEDS: METHOCARBAMOL 500 MG TABLET PO PRN ×2 (09:55→21:25)
--- NOTE | 2020-01-06 11:04 | PN ---
[facility] Progress Note Note: UC reviewed with patient: Microbiology 01/03/20 15:10 Urine - Urine Clean Catch Urine Culture - Final NO GROWTH OBTAINED pt reports no further symptoms today.
[2020-01-06] MEDS ORDERED: PT OWN MED DRAWER 7, Y5N ONE (19:46)
[2020-01-06] MEDS: THIAMINE HCL 100 MG TABLET (FP) PO SCH (21:23)
[2020-01-06] MEDS: LIDOCAINE PATCH REMOVAL MC SCH (21:23)
[2020-01-06] MEDS: QUEtiapine FUMARATE 100 MG TABLET (FP) PO SCH (21:23)
[2020-01-06] MEDS: MELATONIN 5 MG TABLETS PO PRN (21:24)
[2020-01-06] MEDS: hydrOXYzine PAMOATE 50 MG CAPSULE (FP) PO PRN (21:24)
[2020-01-06] MEDS: METHYL SALICYLATE/MENTHOL OINT 30 GM TUBE TP SCH (21:48)
[2020-01-07] MEDS: hydrOXYzine PAMOATE 50 MG CAPSULE (FP) PO PRN (03:11)
[2020-01-07] MEDS: IBUPROFEN 400 MG TABLET (FP) PO PRN ×2 (03:12→17:07)
[2020-01-07] MEDS: BUPRENORPHINE/NALOXONE 8 MG/2 MG FILM PACKET SL SCH ×2 (06:31→17:07)
[2020-01-07] MEDS: MINERAL OIL/PETROLAT/WATER TOPICAL CREAM 113 GM JAR TP SCH (09:59)
[2020-01-07] MEDS: PRENATAL VITAMINS W/ FOLIC ACID TABLET (FP) PO SCH (09:59)
[2020-01-07] MEDS: GABAPENTIN 300 MG CAPSULE PO SCH (09:59)
[2020-01-07] MEDS: PANTOPRAZOLE 40 MG TABLET PO SCH (09:59)
[2020-01-07] MEDS: QUEtiapine FUMARATE 50 MG TABLET PO SCH (09:59)
[2020-01-07] MEDS: NICOTINE 14 MG/24 HOURS TOPICAL PATCH TD SCH (09:59)
[2020-01-07] MEDS: TOLNAFTATE 1% CREAM 15 GM TUBE TP SCH ×2 (10:00→21:31)
[2020-01-07] MEDS: METHOCARBAMOL 500 MG TABLET PO PRN ×2 (10:02→21:31)
[2020-01-07] MEDS: QUEtiapine FUMARATE 100 MG TABLET (FP) PO SCH (21:31)
[2020-01-07] MEDS: THIAMINE HCL 100 MG TABLET (FP) PO SCH (21:31)
[2020-01-07] MEDS: LIDOCAINE PATCH REMOVAL MC SCH (21:31)
[2020-01-07] MEDS: MELATONIN 5 MG TABLETS PO PRN (21:31)
[2020-01-07] MEDS: METHYL SALICYLATE/MENTHOL OINT 30 GM TUBE TP SCH (21:31)
[2020-01-07] MEDS: ACETAMINOPHEN 325 MG TABLET (FP) PO PRN (21:33)
[2020-01-08] MEDS: hydrOXYzine PAMOATE 50 MG CAPSULE (FP) PO PRN ×2 (02:36→21:15)
[2020-01-08] MEDS: IBUPROFEN 400 MG TABLET (FP) PO PRN ×2 (02:36→17:12)
[2020-01-08] MEDS: BUPRENORPHINE/NALOXONE 8 MG/2 MG FILM PACKET SL SCH ×2 (06:33→17:12)
[2020-01-08] MEDS ORDERED: PT OWN MED DRAWER 7, Y5N ONE (08:39)
[2020-01-08] MEDS: GABAPENTIN 300 MG CAPSULE PO SCH (09:59)
[2020-01-08] MEDS: MINERAL OIL/PETROLAT/WATER TOPICAL CREAM 113 GM JAR TP SCH (09:59)
[2020-01-08] MEDS: NICOTINE 14 MG/24 HOURS TOPICAL PATCH TD SCH (09:59)
[2020-01-08] MEDS: PRENATAL VITAMINS W/ FOLIC ACID TABLET (FP) PO SCH (09:59)
[2020-01-08] MEDS: PANTOPRAZOLE 40 MG TABLET PO SCH (09:59)
[2020-01-08] MEDS: QUEtiapine FUMARATE 50 MG TABLET PO SCH (09:59)
[2020-01-08] MEDS: TOLNAFTATE 1% CREAM 15 GM TUBE TP SCH ×2 (09:59→21:14)
[2020-01-08] MEDS: MAG HYDROX/AL HYDROX/SIMETH 30 ML UNIT-DOSE CUP PO PRN (10:55)
[2020-01-08] MEDS: METHYL SALICYLATE/MENTHOL OINT 30 GM TUBE TP SCH (21:13)
[2020-01-08] MEDS: METHOCARBAMOL 500 MG TABLET PO PRN (21:14)
[2020-01-08] MEDS: LIDOCAINE PATCH REMOVAL MC SCH (21:14)
[2020-01-08] MEDS: MELATONIN 5 MG TABLETS PO PRN (21:14)
[2020-01-08] MEDS: THIAMINE HCL 100 MG TABLET (FP) PO SCH (21:14)
[2020-01-08] MEDS: QUEtiapine FUMARATE 100 MG TABLET (FP) PO SCH (21:15)
[2020-01-08] MEDS: ACETAMINOPHEN 325 MG TABLET (FP) PO PRN (21:15)
[2020-01-09] MEDS: BUPRENORPHINE/NALOXONE 8 MG/2 MG FILM PACKET SL SCH (06:29)
[2020-01-09 06:50] VITALS: BP 112/73; PULSE 91; TEMP 97.9
[2020-01-09] MEDS: NICOTINE 14 MG/24 HOURS TOPICAL PATCH TD SCH (10:01)
[2020-01-09] MEDS: GABAPENTIN 300 MG CAPSULE PO SCH (10:01)
[2020-01-09] MEDS: PRENATAL VITAMINS W/ FOLIC ACID TABLET (FP) PO SCH (10:01)
[2020-01-09] MEDS: PANTOPRAZOLE 40 MG TABLET PO SCH (10:02)
[2020-01-09] MEDS: TOLNAFTATE 1% CREAM 15 GM TUBE TP SCH (10:02)
[2020-01-09] MEDS: QUEtiapine FUMARATE 50 MG TABLET PO SCH (10:02)
[2020-01-09] MEDS: MINERAL OIL/PETROLAT/WATER TOPICAL CREAM 113 GM JAR TP SCH (10:02)
[2020-01-09] MEDS: hydrOXYzine PAMOATE 50 MG CAPSULE (FP) PO PRN (10:03)
[2020-01-09] MEDS: METHOCARBAMOL 500 MG TABLET PO PRN (10:03)
[2020-01-09] MEDS ORDERED: PT OWN MED DRAWER 7, Y5N ONE (10:39)
--- NOTE | 2020-01-09 13:13 | PN ---
[facility] Progress Note Note: Patient is discharged today. Scripts for 30 days supply of medications(Seroquel 50 mg/day & Seroquel 100 mg/hs) are electronically transmitted to [facility] at [address] [place], [place] [id number]
--- NOTE | 2020-01-09 13:18 | DS ---
[facility] Rehab Discharge Summary - [facility] Rehab Discharge Summary Admission Date: 12/14/19 Discharge Date: 01/09/20 - History Present History: Opioid dependence - Discharge Physical Exam Vital Signs: Vital Signs Temperature 97.9 F 01/09/20 06:35 Pulse Rate 91 H 01/09/20 06:35 Respiratory Rate 18 01/09/20 06:35 Blood Pressure 112/73 01/09/20 06:35 O2 Sat by Pulse Oximetry (%) Laboratory Tests 12/16/19 11:45 Urine Color Yellow Urine Appearance Clear Urine pH 6.0 Ur Specific [place] 1.025 Urine Protein Negative Urine Glucose (UA) Negative Urine Ketones Negative Urine Blood Negative Urine Nitrite Negative Urine Bilirubin Negative Urine Urobilinogen 0.2 Ur Leukocyte Esterase Trace Urine WBC (Auto) 8 Urine RBC (Auto) 1 Urine Casts (Auto) 6 U Epithel Cells (Auto) 14.3 Urine Bacteria (Auto) 166.2 ROS: denies opiod/etoh cravings, shakes, sweats, chest pain, sob and dizziness. PE alert and oriented x 3 skin warm and dry +perrla, eoms intact bl car s1s2 resp cta bl ext full rom, amb ad sushila denies si/hi a/p etoh/opiod dependence patient medically stable for discharge - Treatment Discharge Condition: Discharge condition good Hospital Course: Patient completed rehab today for opiod dependence. During hospital course, patient attended all group meetings, 1:1 sessions with counselor and started on suboxone MAT. Patient states she accomplished all rehab goals and has aftercare arranged for [facility] on 01/12/2020. Patient encouraged to continue with OTP and Suboxone to prevent reoccurrence of substance use and to follow up with PCP as recommended. - Medication Discharge Medications: Ambulatory Orders Naloxone HCl [Narcan] 4 mg NS ASDIR PRN #1 spray 12/11/19 Gabapentin 300 mg PO BID 12/14/19 Methocarbamol [Robaxin -] 500 mg PO BID 12/14/19 Omeprazole 40 mg PO DAILY 12/14/19 Sulfamethoxazole/Trimethoprim [Bactrim DS -] 1 each PO BID #10 tablet 12/14/19 Albuterol Sulfate Inhaler - [Ventolin HFA Inhaler -] 2 inh PO Q4H PRN #1 inhaler 01/09/20 Buprenorphine/Naloxone [Suboxone 8Mg/2Mg Sl Film -] 1 each SL BID #10 packet MDD 16mg 01/09/20 Colloidal Oatmeal [Aveeno Soap -] 1 applic TP DAILY #1 bar 01/09/20 Mineral Oil/Petrolat,Wht/Water [Eucerin] 1 applic TP BID #1 jar 01/09/20 Quetiapine Fumarate [Seroquel -] 50 mg PO DAILY #30 tablet 01/09/20 Quetiapine Fumarate [Seroquel -] 100 mg PO HS #30 tablet 01/09/20 - Medication-Assisted Treatment (MAT) Medication-Assisted Treatment (MAT): Yes Medication Prescribed: Suboxone MAT Follow-up Referral: [facility], appointment scheduled for 01/12/2020. - Discharge Instructions Diet, activity, other medical instructions: Diet: reg as tolerated Activity: ad sushila as tolerated Other medical instructions: follow up with pcp as recommended - Follow-up Referral Minutes to complete discharge: 35 - AMA Did Patient Leave Against Medical Advice: No
== END 2020-01-09 12:50 | disposition home or self-care (01) | DRG 772 ==
LOC: YASAS 13:45 → Y3E 13:46
PROVIDERS: ADMIT Neuromusculoskeletal Medicine & OMM; ATTEND Neuromusculoskeletal Medicine & OMM
PROC: HZ42ZZZ Group Counseling for Substance Abuse Treatment, Cognitive-Behavioral (ICD-10-PCS; principal; 2019-12-14)
DX: F10.20 Alcohol dependence, uncomplicated (principal); F11.20 Opioid dependence, uncomplicated; F13.20 Sedative, hypnotic or anxiolytic dependence, uncomplicated; F14.20 Cocaine dependence, uncomplicated; F12.20 Cannabis dependence, uncomplicated; F17.210 Nicotine dependence, cigarettes, uncomplicated; D64.9 Anemia, unspecified; G47.00 Insomnia, unspecified; J45.998 Other asthma; K21.9 Gastro-esophageal reflux disease without esophagitis; L85.3 Xerosis cutis; B35.3 Tinea pedis; M17.0 Bilateral primary osteoarthritis of knee; R30.0 Dysuria; M54.5 Low back pain; G89.29 Other chronic pain; Z90.49 Acquired absence of other specified parts of digestive tract
CPT/HCPCS: 73560-TC-LT-FY; 73560-TC-RT-FY; 81003; 87086

== ENCOUNTER 2020-02-03 11:32 | Inpatient (IN) | payer OTHER ==
--- NOTE | 2020-02-03 11:52 | BHS.RME ---
Substance Use & Tx History - Substance Use History Opiates (Heroin) Substance amount: 7 bags Frequency of use: Daily Substance route: Inhalation (ex: sniffing or snorting) Date of Last Use: 02/02/20 Cocaine (Crack) Substance amount: One time use Frequency of use: Less than 5 times a year Substance route: Smoking Date of Last Use: 01/30/20 Nicotine Substance amount: 1 pack Frequency of use: Daily Substance route: Smoking Physical/Psych/Mental Status - Behavior General Behavior: Increased activity (restlessness, agitation) Eye Contact: Normal - Cooperativeness Cooperativeness: Cooperative - Thinking Thought Processes: Tight, Logical, Goal Directed Thought content: Future oriented - Physical Health Problems Is patient presently having any pain?: No Does patient presently have any injuries (include location): No Does patient currently have a fever: No Is patient : No COWS - Scale Resting Pulse: 0= [place] 80 or Below Sweatin= Beads of Sweat on Face Restless Observation: 3= Extraneous Movement Pupil Size: 1= Pupils >than Normal Bone or Joint Aches: 2= Severe Diffuse Aches Runny Nose/ Eye Tearin= Runny Nose/Eyes GI Upset > 30mins: 5=Frequent Vomit/Diarrhea Tremor Observation: 2= Slight Tremor Visible Yawning Observation: 2= >3x During Session Anxiety or Irritability: 2=Irritable/Anxious Goose Flesh Skin: 3=Piloerection COWS Score: 25
[2020-02-03 12:47] VITALS: BMI 32.5
--- NOTE | 2020-02-03 13:02 | HP ---
COWS - Scale Resting Pulse: 0= ID 80 or Below Sweatin= Beads of Sweat on Face Restless Observation: 3= Extraneous Movement Pupil Size: 1= Pupils >than Normal Bone or Joint Aches: 2= Severe Diffuse Aches Runny Nose/ Eye Tearin= Runny Nose/Eyes GI Upset > 30mins: 5=Frequent Vomit/Diarrhea Tremor Observation: 2= Slight Tremor Visible Yawning Observation: 2= >3x During Session Anxiety or Irritability: 2=Irritable/Anxious Goose Flesh Skin: 3=Piloerection COWS Score: 25 CIWA Score - Admission Criteria [facility]ASAS Guidelines: Admission for Medically Managed Detox: Requires at least one of the followin. CIWA greater than 12 2. Seizures within the past 24 hours 3. Delirium tremens within the past 24 hours 4. Hallucinations within the past 24 hours 5. Acute intervention needed for co occurring medical disorder 6. Acute intervention needed for co occurring psychiatric disorder 7. Severe withdrawal that cannot be handled at a lower level of care (continued vomiting, continued diarrhea, abnormal vital signs) requiring intravenous medication and/or fluids 8. Admitting History and Physical - Admission Chief Complaint: "They messed me up and I couldn't get my suboxone when I was discharge so I started using again." History of Present Illness: 49 year old female with history opioid dependence with withdrawal. She was here in detox from 12/10- but upon discharge she had issues with her medication coverage being restricted by [facility] so she could not get her suboxone prescriptions. That has now been resolved. But that caused her to relapse and start using heroin again. Heroin: 7-8 bags of heroin intranasally started age 30 and last used 02/02/20. She has never overdosed. Nicotine: 1 ppd since age 14 Crack: Sporadic see SUB Marijuana: Sporadic see SUB PMH: Asthma, OA bilateral knees Psurg: Cholecystectomy 4 years ago. Psych: Insomnia She lives with daughter and 2 ;grandchildren. She has no legal issues pending. She has poor environment for recovery and needs support to regain sobriety. She is at high risk for relapse if not detox prior to resuming suboxone treatment. History Source: Patient Limitations to Obtaining History: No Limitations - Past Medical History Cardiovascular: Yes: HTN Pulmonary: Yes: Asthma Gastrointestinal: Yes: Gastritis, GERD ...LMP: 11/24/19 Heme/Onc: Yes: Anemia Psych: Yes: Depression Musculoskeletal: Yes: Chronic low back pain, Osteoarthritis - Past Surgical History Past Surgical History: Yes: None - Smoking History Smoking history: Current every day smoker Have you smoked in the past 12 months: Yes Aproximately how many cigarettes per day: 10 - Alcohol/Substance Use Hx Alcohol Use: Yes (none x one year) History of Substance Use: reports: Cocaine, Heroin, Marijuana Date of Last Use: 10/28/19 - Social History Usual Living Arrangement: Yes: With Child Do you think of yourself as: Straight/Heterosexual ADL: Independent Occupation: unemployed History of Recent Travel: No Admission ROS BHS - HPI Allergies/Adverse Reactions: Allergies Allergy/AdvReac Type Severity Reaction Status Date / Time chlordiazepoxide Allergy Severe Difficulty Verified 02/03/20 12:39 [From Librium] Breathing Exam Limitations: No Limitations - Ebola screening Have you traveled outside of the country in the last 21 days: No Have you had contact with anyone from an Ebola affected area: No Have you been sick,other than usual withdrawal symptoms: No Do you have a fever: No - Review of Systems Constitutional: No Symptoms Reported EENT: reports: No Symptoms Reported Respiratory: reports: No Symptoms reported Cardiac: reports: No Symptoms Reported GI: reports: No Symptoms Reported : reports: No Symptoms Reported Musculoskeletal: reports: No Symptoms Reported Integumentary: reports: No Symptoms Reported Neuro: reports: No Symptoms reported Endocrine: reports: No Symptoms Reported Hematology: reports: No Symptoms Reported Psychiatric: reports: Judgement Intact, Mood/Affect Appropiate, Orientated x3, Anxious Other Systems: Reviewed and Negative Patient History - Patient Medical History Hx Anemia: No Hx Asthma: Yes Hx Chronic Obstructive Pulmonary Disease (COPD): No Hx Cancer: Yes (cervical ca ) Hx Cardiac Disorders: No Hx Congestive Heart Failure: No Hx Hypertension: No Hx Hypercholesterolemia: No Hx Pacemaker: No HX Cerebrovascular Accident: No Hx Seizures: No Hx Dementia: No Hx Diabetes: No Hx Gastrointestinal Disorders: No Hx Liver Disease: No Hx Genitourinary Disorders: No Hx Sexually Transmitted Disorders: No Hx Renal Disease (ESRD): No Hx Thyroid Disease: No Hx Human Immunodeficiency Virus (HIV): No Hx Hepatitis C: Yes Hx Depression: Yes Hx Suicide Attempt: No Hx Bipolar Disorder: Yes Hx Schizophrenia: No - Patient Surgical History Past Surgical History: Yes Hx Neurologic Surgery: No Hx Cataract Extraction: No Hx Cardiac Surgery: No Hx Lung Surgery: No Hx Breast Surgery: No Hx Breast Biopsy: No Hx Abdominal Surgery: No Hx Appendectomy: No Hx Cholecystectomy: Yes (lap in 2006) Hx Genitourinary Surgery: Yes (carcinoma in situ ) Hx Section: No Hx Orthopedic Surgery: No Other Surgical History: Pt had a colposcopy. Anesthesia Reaction: No - PPD History Previous Implant?: Yes Documented Results: Negative w/proof Implanted On Prior [facility] Admission?: Yes Date: 10/31/19 Results: 0 MM - Reproductive History Last Menstrual Period: 11/24/19 - Smoking Cessation Smoking history: Current every day smoker Have you smoked in the past 12 months: Yes Aproximately how many cigarettes per day: 10 Cigars Per Day: 0 Hx Chewing Tobacco Use: No Initiated information on smoking cessation: Yes 'Breaking Loose' booklet given: 02/03/20 - Substances abused Heroin Substance route: Inhalation Frequency: Daily Amount used: 7-8 bags Age of first use: 30 Date of last use: 02/02/20 Marijuana/Hashish Substance route: Smoking Frequency: 1-2 times per week Amount used: 1-2 bags Age of first use: 14 Date of last use: 02/02/20 Crack Substance route: Smoking Frequency: 1-2 times per week Amount used: $50 Age of first use: 16 Date of last use: 01/30/20 Admission Physical Exam BHS - Vital Signs Vital Signs: Vital Signs - 24 hr 02/03/20 12:43 Temperature 97.1 F L Pulse Rate 75 Respiratory 18 Rate Blood Pressure 160/89 - Physical General Appearance: Yes: No Apparent Distress, Nourished, Appropriately Dressed HEENTM: Yes: Normal ENT Inspection, Normocephalic, Normal Voice, ANGEL, Pharynx Normal, Tm's normal Respiratory: Yes: Chest Non-Tender, Lungs Clear, Normal Breath Sounds, No Respiratory Distress, No Accessory Muscle Use Neck: Yes: No masses,lesions,Nodules, Supple, Thyroid tenderness Breast: Yes: Breast Exam Deferred Cardiology: Yes: Regular Rhythm, S1, S2, Tachycardia Abdominal: Yes: Soft, Increased Bowel Sounds, Protuberent, Rebound, Tenderness. No: Guarding Genitourinary: Yes: Within Normal Limits Back: Yes: Normal Inspection Musculoskeletal: Yes: full range of Motion, Gait Steady, Pelvis Stable Extremities: Yes: Normal Capillary Refill, Normal Inspection, Other (left arm superficial scars) Neurological: Yes: cheese blender II-XII NML intact, Fully Oriented, Alert, Motor Strength 5/5, Normal Mood/Affect, Normal Response Integumentary: Yes: Normal Color, Dry, Warm Lymphatic: Yes: Within Normal Limits - Diagnostic (1) Depression Current Visit: Yes Status: Acute (2) Opioid dependence with withdrawal Current Visit: Yes Status: Acute (3) Asthma Current Visit: Yes Status: Chronic Qualifiers: Asthma severity: mild Asthma persistence: intermittent Asthma complication type: unspecified Qualified Code(s): J45.20 - Mild intermittent asthma, uncomplicated (4) GERD (gastroesophageal reflux disease) Current Visit: Yes Status: Chronic Qualifiers: Esophagitis presence: without esophagitis Qualified Code(s): K21.9 - Gastro-esophageal reflux disease without esophagitis (5) HTN (hypertension) Current Visit: Yes Status: Chronic Qualifiers: Hypertension type: essential hypertension Qualified Code(s): I10 - Essential (primary) hypertension (6) Hepatitis C antibody positive in blood Current Visit: Yes Status: Chronic Comment: no viral load (7) Insomnia Current Visit: Yes Status: Chronic Qualifiers: Insomnia type: unspecified Qualified Code(s): G47.00 - Insomnia, unspecified (8) Nicotine dependence Current Visit: Yes Status: Chronic Qualifiers: Nicotine product type: cigarettes Substance use status: uncomplicated Qualified Code(s): F17.210 - Nicotine dependence, cigarettes, uncomplicated (9) Cannabis abuse Current Visit: Yes Status: Acute Cleared for Admission S - Detox or Rehab [facility] Level of Care: Medically Managed Detox Regimen/Protocol: Methadone Claeared for Rehab Admission: No Screened but not Admitted - Documentation of Visit Screened but not Admitted: No Breathalyzer - Breathalyzer Breathalyzer: 0 POC Urine test - Test device test lot number: [id number] Expiration date: 07/30/20 - Control test control: Yes Urine Drug Screen - Test Device Lot number: [id number] Expiration date: 10/29/21 - Control Is test valid?: Yes - Results Drug screen NEGATIVE: No Urine drug screen results: THC-Marijuana, [place]-Cocaine, FEN-Fentanyl, MOP-Opiates Inpatient Rehab Admission - Rehab Decision to Admit Inpatient rehab admission?: No
[2020-02-03] MEDS ORDERED: NICOTINE POLACRILEX 2 MG GUM BUC PRN (13:10)
[2020-02-03] MEDS ORDERED: cloNIDine HCL 0.1 MG TABLET PO PRN (13:10)
[2020-02-03] MEDS ORDERED: MAG HYDROX/AL HYDROX/SIMETH 30 ML UNIT-DOSE CUP PO PRN (13:10)
[2020-02-03] MEDS ORDERED: MAGNESIUM HYDROX 2400MG/30ML ORAL SUSPENSION 30 ML CUP PO PRN (13:10)
[2020-02-03] MEDS ORDERED: MAGNESIUM CITRATE 300 ML BOTTLE PO PRN (13:10)
[2020-02-03] MEDS ORDERED: BISMUTH SUBSALICYLATE 524 MG/30 ML UD PO PRN (13:10)
[2020-02-03] MEDS ORDERED: MENTHOL/PHENOL 1 EACH UD MM PRN (13:10)
[2020-02-03] MEDS ORDERED: ACETAMINOPHEN 325 MG TABLET (FP) PO PRN ×2 (13:10)
[2020-02-03] MEDS ORDERED: IBUPROFEN 400 MG TABLET (FP) PO PRN (13:10)
[2020-02-03] MEDS ORDERED: ALBUTEROL SO4 8 GM HFA INHALER IH PRN (13:12)
[2020-02-03] MEDS ORDERED: hydrOXYzine PAMOATE 25 MG CAPSULE (FP) PO SCH (14:00)
[2020-02-03] MEDS ORDERED: COLLOIDAL OATMEAL 1 BAR EACH TP SCH (14:00)
[2020-02-03] MEDS ORDERED: METHADONE HCL 10 MG TABLET (FOR DETOX USE ONLY) PO ONE (14:00)
[2020-02-03] MEDS ORDERED: ONDANSETRON *ODT* 4 MG TABLET SL ONE (14:00)
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
[2020-02-03] MEDS: NICOTINE 7 MG/24 HOURS TOPICAL PATCH TD SCH (14:27)
[2020-02-03] MEDS: GABAPENTIN 300 MG CAPSULE PO SCH ×2 (14:27→22:12)
[2020-02-03] MEDS: PRENATAL VITAMINS W/ FOLIC ACID TABLET (FP) PO SCH (14:28)
[2020-02-03] MEDS: MINERAL OIL/PETROLAT/WATER TOPICAL CREAM 454 GM JAR TP SCH ×2 (14:29→22:34)
[2020-02-03] MEDS: QUEtiapine FUMARATE 50 MG TABLET PO SCH (14:58)
[2020-02-03] MEDS ORDERED: ONDANSETRON *ODT* 4 MG TABLET SL PRN (15:30)
[2020-02-03] MEDS ORDERED: COLLOIDAL OATMEAL 1 BAR EACH TP ONE (15:46)
[2020-02-03 18:44] LABS: HEMATOCRIT 33.7 % (32.4-45.2); HEMOGLOBIN 11.2 GM/dL (10.7-15.3); MCH 29.2 pg (25.7-33.7); MCHC 33.3 g/dl (32.0-36.0); MEAN CELL VOLUME 87.5 fl (80-96); MEAN PLT VOLUME 9.1 fl (7.5-11.1); PLATELET COUNT 270 K/MM3 (134-434); RBC 3.85 M/mm3 (3.60-5.2); RDW 14.8 % (11.6-15.6); WHITE BLOOD COUNT 7.3 K/mm3 (4.0-10.0)
[2020-02-03 18:45] LABS: ALBUMIN 3.5 g/dl (3.4-5.0); BILIRUBIN,TOTAL 0.2 mg/dL (0.2-1); BLOOD UREA NITROGEN 18.1 mg/dL (7-18); CALCIUM 8.5 mg/dL (8.5-10.1); CREATININE 0.7 mg/dL (0.55-1.3); TOT PROT 7.2 g/dl (6.4-8.2)
[2020-02-03] MEDS: THIAMINE HCL 100 MG TABLET (FP) PO SCH (22:13)
[2020-02-03] MEDS: MELATONIN 5 MG TABLETS PO SCH (22:13)
[2020-02-03] MEDS: QUEtiapine FUMARATE 100 MG TABLET (FP) PO SCH (22:13)
[2020-02-03] MEDS: LIDOCAINE PATCH REMOVAL MC SCH (22:35)
[2020-02-04] MEDS ORDERED: METHADONE HCL 5 MG TABLET (FOR DETOX USE ONLY) ONE (08:35)
[2020-02-04] MEDS ORDERED: METHADONE HCL 10 MG TABLET (FOR DETOX USE ONLY) ONE (08:35)
[2020-02-04] MEDS ORDERED: METHADONE (DETOX) 20 MG, METHADONE (DETOX) 5 MG PO ONE (10:00)
[2020-02-04] MEDS: GABAPENTIN 300 MG CAPSULE PO SCH ×2 (10:14→23:34)
[2020-02-04] MEDS: QUEtiapine FUMARATE 50 MG TABLET PO SCH (10:14)
[2020-02-04] MEDS: PANTOPRAZOLE 40 MG TABLET PO SCH (10:14)
[2020-02-04] MEDS: NICOTINE 7 MG/24 HOURS TOPICAL PATCH TD SCH (10:15)
[2020-02-04] MEDS: PRENATAL VITAMINS W/ FOLIC ACID TABLET (FP) PO SCH (10:15)
[2020-02-04] MEDS: MINERAL OIL/PETROLAT/WATER TOPICAL CREAM 454 GM JAR TP SCH ×2 (10:18→23:33)
[2020-02-04] MEDS: LIDOCAINE 5% TOPICAL PATCH TP SCH (10:18)
--- NOTE | 2020-02-04 13:52 | PN ---
S COWS - Scale Resting Pulse: 0= DC 80 or Below Sweatin= No chills or Flushing Restless Observation: 1= Difficult to Sit Still Pupil Size: 1= Pupils >than Normal Bone or Joint Aches: 1= Mild Discomfort Runny Nose/ Eye Tearin= Runny Nose/Eyes GI Upset > 30mins: 1= Stomach Cramp Tremor Observation of Outstretched Hands: 2= Slight Tremor Visible Yawning Observation: 1= 1-2x During Session Anxiety or Irritability: 2=Irritable/Anxious Goose Flesh Skin: 0=Smooth Skin COWS Score: 11 [facility] Progress Note (SOAP) Subjective: alert,irritable,anxious,interrupted sleep pain in the body,back,tremor Objective: 02/04/20 13:51 Vital Signs Temperature 97.5 F L 02/04/20 08:30 Pulse Rate 80 02/04/20 08:30 Respiratory Rate 19 02/04/20 08:30 Blood Pressure 153/72 02/04/20 08:30 O2 Sat by Pulse Oximetry (%) Laboratory Last Values WBC 7.3 K/mm3 (4.0-10.0) 02/03/20 13:30 RBC 3.85 M/mm3 (3.60-5.2) 02/03/20 13:30 Hgb 11.2 GM/dL (10.7-15.3) 02/03/20 13:30 Hct 33.7 % (32.4-45.2) 02/03/20 13:30 MCV 87.5 fl (80-96) 02/03/20 13:30 MCH 29.2 pg (25.7-33.7) 02/03/20 13:30 MCHC 33.3 g/dl (32.0-36.0) 02/03/20 13:30 RDW 14.8 % (11.6-15.6) 02/03/20 13:30 Plt Count 270 K/MM3 (134-434) D 02/03/20 13:30 MPV 9.1 fl (7.5-11.1) 02/03/20 13:30 Sodium 142 mmol/L (136-145) 02/03/20 13:30 Potassium 4.0 mmol/L (3.5-5.1) 02/03/20 13:30 Chloride 108 mmol/L (98-107) H 02/03/20 13:30 Carbon Dioxide 27 mmol/L (21-32) 02/03/20 13:30 Anion Gap 7 MMOL/L (8-16) L 02/03/20 13:30 BUN 18.1 mg/dL (7-18) H 02/03/20 13:30 Creatinine 0.7 mg/dL (0.55-1.3) 02/03/20 13:30 Est GFR (CKD-EPI)AfAm 116.27 02/03/20 13:30 Est GFR (CKD-EPI)NonAf 100.32 02/03/20 13:30 Random Glucose 108 mg/dL (74-106) H 02/03/20 13:30 Calcium 8.5 mg/dL (8.5-10.1) 02/03/20 13:30 Total Bilirubin 0.2 mg/dL (0.2-1) 02/03/20 13:30 AST 10 U/L (15-37) L 02/03/20 13:30 ALT 19 U/L (13-61) 02/03/20 13:30 Alkaline Phosphatase 109 U/L (45-117) 02/03/20 13:30 Total Protein 7.2 g/dl (6.4-8.2) 02/03/20 13:30 Albumin 3.5 g/dl (3.4-5.0) 02/03/20 13:30 RPR Titer Nonreactive (NONREACTIVE) 02/03/20 13:30 Assessment: 02/04/20 13:52 withdrawal symptom Plan: continue detox methadone regimen,valium 10 mgs po q 4hr prn for 72 hrs
--- NOTE | 2020-02-04 14:18 | PN ---
S Progress Note Note: patient stated that she is allergic to librium but has no problem with valium and has been taking valium before with no problem, also requested cane for ambulatory aid,bad arthritis both knees
[2020-02-04] MEDS: IBUPROFEN 400 MG TABLET (FP) PO PRN (15:10)
[2020-02-04] MEDS: diazePAM 5 MG TABLET PO PRN (15:12)
[2020-02-04] MEDS: LIDOCAINE PATCH REMOVAL MC SCH (23:33)
[2020-02-04] MEDS: QUEtiapine FUMARATE 100 MG TABLET (FP) PO SCH (23:34)
[2020-02-04] MEDS: THIAMINE HCL 100 MG TABLET (FP) PO SCH (23:34)
[2020-02-04] MEDS: MELATONIN 5 MG TABLETS PO SCH (23:34)
[2020-02-05] MEDS: diazePAM 5 MG TABLET PO PRN ×3 (09:59→20:43)
[2020-02-05] MEDS: GABAPENTIN 300 MG CAPSULE PO SCH ×2 (10:00→22:43)
[2020-02-05] MEDS: hydrOXYzine PAMOATE 25 MG CAPSULE (FP) PO PRN ×2 (10:00→20:43)
[2020-02-05] MEDS ORDERED: METHADONE HCL 10 MG TABLET (FOR DETOX USE ONLY) PO ONE (10:00)
[2020-02-05] MEDS: QUEtiapine FUMARATE 50 MG TABLET PO SCH (10:00)
[2020-02-05] MEDS: NICOTINE 7 MG/24 HOURS TOPICAL PATCH TD SCH (10:01)
[2020-02-05] MEDS: LIDOCAINE 5% TOPICAL PATCH TP SCH (10:01)
[2020-02-05] MEDS: PRENATAL VITAMINS W/ FOLIC ACID TABLET (FP) PO SCH (10:01)
[2020-02-05] MEDS: IBUPROFEN 400 MG TABLET (FP) PO PRN ×2 (10:02→20:46)
[2020-02-05] MEDS: PANTOPRAZOLE 40 MG TABLET PO SCH (10:02)
[2020-02-05] MEDS: MINERAL OIL/PETROLAT/WATER TOPICAL CREAM 454 GM JAR TP SCH ×2 (10:06→22:42)
--- NOTE | 2020-02-05 12:54 | PN ---
BHS COWS - Scale Resting Pulse: 1= [place] 81-100 Sweatin= Chills/Flushing Restless Observation: 1= Difficult to Sit Still Pupil Size: 0= Normal to Room Light Bone or Joint Aches: 2= Severe Diffuse Aches Runny Nose/ Eye Tearin= Nasal Congestion GI Upset > 30mins: 0= None Tremor Observation of Outstretched Hands: 1= Tremor [place], Not Seen Yawning Observation: 1= 1-2x During Session Anxiety or Irritability: 1=Feels Anxious/Irritable Goose Flesh Skin: 0=Smooth Skin COWS Score: 9 [facility] Progress Note (SOAP) Subjective: body aches sweats shakes interrupted sleep agitation Objective: 02/05/20 12:53 Vital Signs Temperature 98.1 F 02/05/20 09:00 Pulse Rate 90 02/05/20 09:00 Respiratory Rate 20 02/05/20 09:00 Blood Pressure 141/67 02/05/20 09:00 O2 Sat by Pulse Oximetry (%) Laboratory Tests 02/03/20 02/03/20 02/03/20 13:30 13:30 13:30 WBC 7.3 RBC 3.85 Hgb 11.2 Hct 33.7 MCV 87.5 MCH 29.2 MCHC 33.3 RDW 14.8 Plt Count 270 D MPV 9.1 Sodium 142 Potassium 4.0 Chloride 108 H Carbon Dioxide 27 Anion Gap 7 L BUN 18.1 H Creatinine 0.7 Est GFR (CKD-EPI)AfAm 116.27 Est GFR (CKD-EPI)NonAf 100.32 Random Glucose 108 H Calcium 8.5 Total Bilirubin 0.2 AST 10 L ALT 19 Alkaline Phosphatase 109 Total Protein 7.2 Albumin 3.5 RPR Titer Nonreactive labs noted aaox3 ambulating no acute distress Assessment: 02/05/20 12:53 withdrawals Plan: continue detox increase fluids
[2020-02-05] MEDS: BACITRACIN 0.9 GM PACKET TP SCH (14:41)
[2020-02-05] MEDS: METHOCARBAMOL 500 MG TABLET PO PRN (20:46)
[2020-02-05] MEDS: LIDOCAINE PATCH REMOVAL MC SCH (22:42)
[2020-02-05] MEDS: MELATONIN 5 MG TABLETS PO SCH (22:43)
[2020-02-05] MEDS: QUEtiapine FUMARATE 100 MG TABLET (FP) PO SCH (22:43)
[2020-02-05] MEDS: THIAMINE HCL 100 MG TABLET (FP) PO SCH (22:43)
[2020-02-06] MEDS: IBUPROFEN 400 MG TABLET (FP) PO PRN ×2 (06:12→18:13)
[2020-02-06] MEDS: diazePAM 5 MG TABLET PO PRN ×4 (06:12→22:37)
[2020-02-06] MEDS: hydrOXYzine PAMOATE 25 MG CAPSULE (FP) PO PRN ×4 (06:13→22:36)
[2020-02-06] MEDS ORDERED: METHADONE HCL 5 MG TABLET (FOR DETOX USE ONLY) ONE (09:32)
[2020-02-06] MEDS ORDERED: METHADONE HCL 10 MG TABLET (FOR DETOX USE ONLY) ONE (09:33)
[2020-02-06] MEDS ORDERED: METHADONE (DETOX) 10 MG, METHADONE (DETOX) 5 MG PO ONE (10:00)
[2020-02-06] MEDS: PRENATAL VITAMINS W/ FOLIC ACID TABLET (FP) PO SCH (10:18)
[2020-02-06] MEDS: BACITRACIN 0.9 GM PACKET TP SCH (10:18)
[2020-02-06] MEDS: NICOTINE 7 MG/24 HOURS TOPICAL PATCH TD SCH (10:19)
[2020-02-06] MEDS: QUEtiapine FUMARATE 50 MG TABLET PO SCH (10:19)
[2020-02-06] MEDS: GABAPENTIN 300 MG CAPSULE PO SCH ×2 (10:19→21:26)
[2020-02-06] MEDS: PANTOPRAZOLE 40 MG TABLET PO SCH (10:19)
[2020-02-06] MEDS: LIDOCAINE 5% TOPICAL PATCH TP SCH (10:20)
[2020-02-06] MEDS: METHOCARBAMOL 500 MG TABLET PO PRN ×2 (10:24→21:30)
[2020-02-06] MEDS: MINERAL OIL/PETROLAT/WATER TOPICAL CREAM 454 GM JAR TP SCH ×2 (10:29→21:31)
--- NOTE | 2020-02-06 12:14 | PN ---
BHS COWS - Scale Resting Pulse: 1= [place] 81-100 Sweatin= Chills/Flushing Restless Observation: 1= Difficult to Sit Still Pupil Size: 0= Normal to Room Light Bone or Joint Aches: 1= Mild Discomfort Runny Nose/ Eye Tearin= None GI Upset > 30mins: 0= None Tremor Observation of Outstretched Hands: 1= Tremor [place], Not Seen Yawning Observation: 1= 1-2x During Session Anxiety or Irritability: 1=Feels Anxious/Irritable Goose Flesh Skin: 0=Smooth Skin COWS Score: 7 [facility] Progress Note (SOAP) Subjective: anxiety sweats body aches interrupted sleep Objective: 02/06/20 12:12 Vital Signs Temperature 99.1 F 02/06/20 08:42 Pulse Rate 89 02/06/20 08:42 Respiratory Rate 18 02/06/20 08:42 Blood Pressure 152/66 02/06/20 08:42 O2 Sat by Pulse Oximetry (%) Laboratory Tests 02/03/20 02/03/20 02/03/20 11:57 13:30 13:30 WBC 7.3 RBC 3.85 Hgb 11.2 Hct 33.7 MCV 87.5 MCH 29.2 MCHC 33.3 RDW 14.8 Plt Count 270 D MPV 9.1 Sodium 142 Potassium 4.0 Chloride 108 H Carbon Dioxide 27 Anion Gap 7 L BUN 18.1 H Creatinine 0.7 Est GFR (CKD-EPI)AfAm 116.27 Est GFR (CKD-EPI)NonAf 100.32 Random Glucose 108 H Calcium 8.5 Total Bilirubin 0.2 AST 10 L ALT 19 Alkaline Phosphatase 109 Total Protein 7.2 Albumin 3.5 POC Urine HCG, Qual Negative RPR Titer 02/03/20 13:30 WBC RBC Hgb Hct MCV MCH MCHC RDW Plt Count MPV Sodium Potassium Chloride Carbon Dioxide Anion Gap BUN Creatinine Est GFR (CKD-EPI)AfAm Est GFR (CKD-EPI)NonAf Random Glucose Calcium Total Bilirubin AST ALT Alkaline Phosphatase Total Protein Albumin POC Urine HCG, Qual RPR Titer Nonreactive aaox3 ambulating no acute distress Assessment: 02/06/20 12:13 withdrawals Plan: continue detox increase fluids valium prn
[2020-02-06] MEDS: MELATONIN 5 MG TABLETS PO SCH (21:26)
[2020-02-06] MEDS: THIAMINE HCL 100 MG TABLET (FP) PO SCH (21:26)
[2020-02-06] MEDS: QUEtiapine FUMARATE 100 MG TABLET (FP) PO SCH (21:26)
[2020-02-06] MEDS: LIDOCAINE PATCH REMOVAL MC SCH (21:31)
[2020-02-07] MEDS: diazePAM 5 MG TABLET PO PRN ×2 (06:43→11:04)
[2020-02-07] MEDS: IBUPROFEN 400 MG TABLET (FP) PO PRN ×2 (06:43→16:45)
[2020-02-07] MEDS: hydrOXYzine PAMOATE 25 MG CAPSULE (FP) PO PRN (06:43)
[2020-02-07] MEDS ORDERED: METHADONE HCL 10 MG TABLET (FOR DETOX USE ONLY) PO ONE (10:00)
[2020-02-07] MEDS: QUEtiapine FUMARATE 50 MG TABLET PO SCH (10:22)
[2020-02-07] MEDS: BACITRACIN 0.9 GM PACKET TP SCH (10:22)
[2020-02-07] MEDS: GABAPENTIN 300 MG CAPSULE PO SCH ×2 (10:22→21:25)
[2020-02-07] MEDS: PANTOPRAZOLE 40 MG TABLET PO SCH (10:22)
[2020-02-07] MEDS: NICOTINE 7 MG/24 HOURS TOPICAL PATCH TD SCH (10:23)
[2020-02-07] MEDS: LIDOCAINE 5% TOPICAL PATCH TP SCH (10:23)
[2020-02-07] MEDS: MINERAL OIL/PETROLAT/WATER TOPICAL CREAM 454 GM JAR TP SCH ×2 (10:23→21:26)
[2020-02-07] MEDS: METHOCARBAMOL 500 MG TABLET PO PRN ×2 (10:24→21:25)
[2020-02-07] MEDS: hydrOXYzine PAMOATE 50 MG CAPSULE (FP) PO PRN ×2 (11:04→20:22)
[2020-02-07] MEDS: PRENATAL VITAMINS W/ FOLIC ACID TABLET (FP) PO SCH (12:07)
--- NOTE | 2020-02-07 12:38 | PN ---
BHS COWS - Scale Resting Pulse: 1= [place] 81-100 Sweatin= Chills/Flushing Restless Observation: 1= Difficult to Sit Still Pupil Size: 0= Normal to Room Light Bone or Joint Aches: 2= Severe Diffuse Aches Runny Nose/ Eye Tearin= None GI Upset > 30mins: 0= None Tremor Observation of Outstretched Hands: 0= None Yawning Observation: 0= None Anxiety or Irritability: 1=Feels Anxious/Irritable Goose Flesh Skin: 0=Smooth Skin COWS Score: 6 [facility] Progress Note (SOAP) Subjective: sweats shakes body aches Objective: 02/07/20 12:39 Vital Signs Temperature 98.3 F 02/07/20 08:36 Pulse Rate 93 H 02/07/20 08:36 Respiratory Rate 19 02/07/20 08:36 Blood Pressure 155/67 02/07/20 08:36 O2 Sat by Pulse Oximetry (%) Laboratory Tests 02/03/20 02/03/20 02/03/20 11:57 13:30 13:30 WBC 7.3 RBC 3.85 Hgb 11.2 Hct 33.7 MCV 87.5 MCH 29.2 MCHC 33.3 RDW 14.8 Plt Count 270 D MPV 9.1 Sodium 142 Potassium 4.0 Chloride 108 H Carbon Dioxide 27 Anion Gap 7 L BUN 18.1 H Creatinine 0.7 Est GFR (CKD-EPI)AfAm 116.27 Est GFR (CKD-EPI)NonAf 100.32 Random Glucose 108 H Calcium 8.5 Total Bilirubin 0.2 AST 10 L ALT 19 Alkaline Phosphatase 109 Total Protein 7.2 Albumin 3.5 POC Urine HCG, Qual Negative RPR Titer 02/03/20 13:30 WBC RBC Hgb Hct MCV MCH MCHC RDW Plt Count MPV Sodium Potassium Chloride Carbon Dioxide Anion Gap BUN Creatinine Est GFR (CKD-EPI)AfAm Est GFR (CKD-EPI)NonAf Random Glucose Calcium Total Bilirubin AST ALT Alkaline Phosphatase Total Protein Albumin POC Urine HCG, Qual RPR Titer Nonreactive aaox3 ambulating no acute distress Assessment: 02/07/20 12:40 mild withdrawal sx Plan: continue detox d/c in am
[2020-02-07] MEDS: QUEtiapine FUMARATE 100 MG TABLET (FP) PO SCH (21:25)
[2020-02-07] MEDS: LIDOCAINE PATCH REMOVAL MC SCH (21:26)
[2020-02-07] MEDS: THIAMINE HCL 100 MG TABLET (FP) PO SCH (21:26)
[2020-02-07] MEDS: MELATONIN 5 MG TABLETS PO SCH (21:26)
[2020-02-08] MEDS ORDERED: METHADONE HCL 5 MG TABLET (FOR DETOX USE ONLY) PO ONE (06:00)
[2020-02-08] MEDS: IBUPROFEN 400 MG TABLET (FP) PO PRN (06:26)
[2020-02-08] MEDS: METHOCARBAMOL 500 MG TABLET PO PRN (06:28)
[2020-02-08] MEDS ORDERED: diazePAM 5 MG TABLET PO ONE (07:46)
[2020-02-08] MEDS ORDERED: METHOCARBAMOL 500 MG TABLET PO ONE (08:39)
--- NOTE | 2020-02-08 08:39 | DS ---
[facility] Detox Discharge Summary Admission Date: 02/03/20 Discharge Date: 02/08/20 - History Present History: Cannabis Dependence, Cocaine Dependence, Opioid Dependence - Physical Exam Results Vital Signs: Vital Signs Temperature 98.0 F 02/08/20 06:05 Pulse Rate 81 02/08/20 06:05 Respiratory Rate 18 02/08/20 06:05 Blood Pressure 125/66 02/08/20 06:05 O2 Sat by Pulse Oximetry (%) Pertinent Admission Physical Exam Findings: Vital Signs Temperature 98.1 F 02/08/20 08:59 Pulse Rate 97 H 02/08/20 08:59 Respiratory Rate 18 02/08/20 08:59 Blood Pressure 133/61 02/08/20 08:59 O2 Sat by Pulse Oximetry (%) Laboratory Tests 02/03/20 02/03/20 02/03/20 11:57 13:30 13:30 WBC 7.3 RBC 3.85 Hgb 11.2 Hct 33.7 MCV 87.5 MCH 29.2 MCHC 33.3 RDW 14.8 Plt Count 270 D MPV 9.1 Sodium 142 Potassium 4.0 Chloride 108 H Carbon Dioxide 27 Anion Gap 7 L BUN 18.1 H Creatinine 0.7 Est GFR (CKD-EPI)AfAm 116.27 Est GFR (CKD-EPI)NonAf 100.32 Random Glucose 108 H Calcium 8.5 Total Bilirubin 0.2 AST 10 L ALT 19 Alkaline Phosphatase 109 Total Protein 7.2 Albumin 3.5 POC Urine HCG, Qual Negative RPR Titer T.pallidum Ab Interpret 02/03/20 02/03/20 13:30 13:30 WBC RBC Hgb Hct MCV MCH MCHC RDW Plt Count MPV Sodium Potassium Chloride Carbon Dioxide Anion Gap BUN Creatinine Est GFR (CKD-EPI)AfAm Est GFR (CKD-EPI)NonAf Random Glucose Calcium Total Bilirubin AST ALT Alkaline Phosphatase Total Protein Albumin POC Urine HCG, Qual RPR Titer Nonreactive T.pallidum Ab Interpret Cancelled aaox3 ambulating no acute distress - Treatment Hospital Course: Detox Protocol Followed, Detoxed Safely, Responded well, Discharged Condition Good, Rehab Referral Accepted - Medication Discharge Medications: Ambulatory Orders Gabapentin 300 mg PO BID 12/14/19 Methocarbamol [Robaxin -] 500 mg PO BID 12/14/19 Omeprazole 40 mg PO DAILY 12/14/19 Albuterol Sulfate Inhaler - [Ventolin HFA Inhaler -] 2 inh PO Q4H PRN #1 inhaler 01/09/20 Mineral Oil/Petrolat,Wht/Water [Eucerin] 1 applic TP BID #1 jar 01/09/20 Quetiapine Fumarate [Seroquel -] 50 mg PO DAILY #30 tablet 01/09/20 Quetiapine Fumarate [Seroquel -] 100 mg PO HS #30 tablet 01/09/20 Colloidal Oatmeal [Aveeno Soap -] 1 applic TP PRN PRN 02/08/20 - Diagnosis (1) Cannabis abuse Status: Acute (2) Cannabis dependence Status: Acute (3) Cocaine dependence Status: Acute (4) Cocaine use disorder, severe, in early remission, dependence Status: Acute (5) Depression Status: Acute (6) Depression Status: Acute (7) Opioid dependence with withdrawal Status: Acute (8) Substance induced mood disorder Status: Acute (9) Substance-induced sleep disorder Status: Acute (10) Alcohol use disorder Status: Chronic (11) Asthma Status: Chronic Qualifiers: Asthma severity: mild Asthma persistence: intermittent Asthma complication type: unspecified Qualified Code(s): J45.20 - Mild intermittent asthma, uncomplicated (12) Bipolar disorder Status: Chronic (13) Cannabis dependence Status: Chronic (14) Cocaine dependence Status: Chronic Qualifiers: Substance use status: uncomplicated Qualified Code(s): F14.20 - Cocaine dependence, uncomplicated (15) GERD (gastroesophageal reflux disease) Status: Chronic Qualifiers: Esophagitis presence: without esophagitis Qualified Code(s): K21.9 - Gastro-esophageal reflux disease without esophagitis (16) HTN (hypertension) Status: Chronic Qualifiers: Hypertension type: essential hypertension Qualified Code(s): I10 - Essential (primary) hypertension (17) Hepatitis C antibody positive in blood Status: Chronic (18) Insomnia Status: Chronic Qualifiers: Insomnia type: unspecified Qualified Code(s): G47.00 - Insomnia, unspecified (19) Low back pain Status: Chronic Qualifiers: Chronicity: chronic Back pain laterality: bilateral Sciatica presence: with sciatica (20) Mood disorder Status: Chronic (21) Nicotine dependence Status: Chronic Qualifiers: Nicotine product type: cigarettes Substance use status: uncomplicated Qualified Code(s): F17.210 - Nicotine dependence, cigarettes, uncomplicated (22) Nicotine dependence Status: Chronic (23) Non-compliance Status: Chronic (24) Opioid use disorder Status: Chronic (25) Osteoarthritis of both knees Status: Chronic Qualifiers: Osteoarthritis type: primary Qualified Code(s): M17.0 - Bilateral primary osteoarthritis of knee (26) Sedative, hypnotic or anxiolytic use disorder, severe, in early remission, dependence Status: Chronic (27) Anemia Status: Resolved (28) Carcinoma uterine cervix in situ Status: Resolved Qualifiers: Carcinoma in situ of uterine cervix location: unspecified part of cervix Qualified Code(s): D06.9 - Carcinoma in situ of cervix, unspecified (29) History of bipolar disorder Status: Ruled-out - AMA Did Patient Leave Against Medical Advice: No
[2020-02-08] MEDS: hydrOXYzine PAMOATE 50 MG CAPSULE (FP) PO PRN (09:10)
[2020-02-08] MEDS: QUEtiapine FUMARATE 50 MG TABLET PO SCH (09:10)
[2020-02-08 10:16] VITALS: BP 133/61; PULSE 97; TEMP 98.1
[2020-02-08] MEDS: BACITRACIN 0.9 GM PACKET TP SCH (11:41)
[2020-02-08] MEDS: PRENATAL VITAMINS W/ FOLIC ACID TABLET (FP) PO SCH (11:42)
[2020-02-08] MEDS: LIDOCAINE 5% TOPICAL PATCH TP SCH (11:42)
[2020-02-08] MEDS: PANTOPRAZOLE 40 MG TABLET PO SCH (11:42)
[2020-02-08] MEDS: MINERAL OIL/PETROLAT/WATER TOPICAL CREAM 454 GM JAR TP SCH (11:42)
[2020-02-08] MEDS: GABAPENTIN 300 MG CAPSULE PO SCH (11:42)
[2020-02-08] MEDS: NICOTINE 7 MG/24 HOURS TOPICAL PATCH TD SCH (11:42)
== END 2020-02-08 13:05 | disposition other institution (70) | DRG 773 ==
LOC: YASAS 11:32 → Y6N 13:27
PROVIDERS: ADMIT Allergy & Immunology; ATTEND Allergy & Immunology
PROC: HZ2ZZZZ Detoxification Services for Substance Abuse Treatment (ICD-10-PCS; principal; 2020-02-03)
DX: F11.23 Opioid dependence with withdrawal (principal); F10.230 Alcohol dependence with withdrawal, uncomplicated; F14.20 Cocaine dependence, uncomplicated; F12.20 Cannabis dependence, uncomplicated; F13.20 Sedative, hypnotic or anxiolytic dependence, uncomplicated; F17.210 Nicotine dependence, cigarettes, uncomplicated; F19.24 Other psychoactive substance dependence with psychoactive substance-induced mood disorder; F32.9 Major depressive disorder, single episode, unspecified; F19.282 Other psychoactive substance dependence with psychoactive substance-induced sleep disorder; F39 Unspecified mood [affective] disorder; J45.20 Mild intermittent asthma, uncomplicated; K21.9 Gastro-esophageal reflux disease without esophagitis; I10 Essential (primary) hypertension; G47.00 Insomnia, unspecified; R00.0 Tachycardia, unspecified; B18.2 Chronic viral hepatitis C; M54.5 Low back pain; G89.29 Other chronic pain; M17.0 Bilateral primary osteoarthritis of knee; D64.9 Anemia, unspecified; D06.9 Carcinoma in situ of cervix, unspecified; Z91.14 Patient's other noncompliance with medication regimen; Z62.810 Personal history of physical and sexual abuse in childhood; Z91.410 Personal history of adult physical and sexual abuse; Z88.8 Allergy status to other drugs, medicaments and biological substances
CPT/HCPCS: 36415; 80053; 81025; 85027; 86593; Q0162

== ENCOUNTER 2020-02-08 13:00 | Inpatient (IN) | payer OTHER ==
[2020-02-08 13:32] VITALS: BP 132/79; PULSE 103; TEMP 98
--- NOTE | 2020-02-08 15:12 | HP ---
[facility] Rehab Assess/Revision - Admission History Admitted to Rehab from: [address] - Vital signs Vital Signs: Vital Signs Period Temp Pulse Resp BP Sys/Mccracken Pulse Ox Last 24 Hr 98 F 103 20 132/79 - Findings Detox History & Physical reviewed: Yes Concur with findings: Yes Inpatient Rehab Admission - Rehab Decision to Admit Inpatient rehab admission?: Yes - Initial Determination Are CD services needed?: Yes Free of communicable disease: Yes Not in need of hospitalization: Yes - Rehab Admission Criteria Previous failed treatment: Yes Poor recovery environment: Yes Comorbidities: Yes Lacks judgement: Yes Patient is meeting Inpatient Rehab admission criteria:: Yes
== END 2020-02-08 13:47 | disposition left against medical advice (07) | DRG 770 ==
LOC: YASAS 13:00 → Y3E 13:03
PROVIDERS: ADMIT Allergy & Immunology; ATTEND Allergy & Immunology
PROC: HZ42ZZZ Group Counseling for Substance Abuse Treatment, Cognitive-Behavioral (ICD-10-PCS; principal; 2020-02-08)
DX: F11.20 Opioid dependence, uncomplicated (principal); F12.10 Cannabis abuse, uncomplicated; F17.210 Nicotine dependence, cigarettes, uncomplicated; F32.9 Major depressive disorder, single episode, unspecified; K21.9 Gastro-esophageal reflux disease without esophagitis; I10 Essential (primary) hypertension; G47.00 Insomnia, unspecified; B18.2 Chronic viral hepatitis C

== ENCOUNTER 2020-05-19 17:59 | Inpatient (IN) | payer OTHER ==
--- NOTE | 2020-05-19 18:09 | BHS.RME ---
Substance Use & Tx History - Substance Use History Heroin Substance amount: 8 bags Frequency of use: Daily Substance route: Inhalation (ex: sniffing or snorting) Date of Last Use: 05/18/20 Cocaine-Crack Frequency of use: Daily Substance route: Smoking Date of Last Use: 05/18/20 Marijuana/Hashish Substance amount: 10 $ Frequency of use: Daily Substance route: Smoking Date of Last Use: 05/18/20 - Last Treatment Date of last treatment: 02/03/20 to 02/08/20 Where was last treatment: Detox Physical/Psych/Mental Status - Behavior General Behavior: Increased activity (restlessness, agitation) Eye Contact: Normal - Cooperativeness Cooperativeness: Cooperative - Thinking Thought Processes: Logical Thought content: Future oriented - Physical Health Problems Is patient presently having any pain?: No Does patient presently have any injuries (include location): No Does patient currently have a fever: No Is patient : No COWS - Scale Resting Pulse: 1= [place] 81-100 Sweatin= Chills/Flushing Restless Observation: 3= Extraneous Movement Pupil Size: 1= Pupils >than Normal Bone or Joint Aches: 2= Severe Diffuse Aches Runny Nose/ Eye Tearin= Nasal Congestion GI Upset > 30mins: 2= Nausea/Diarrhea Tremor Observation: 2= Slight Tremor Visible Yawning Observation: 1= 1-2x During Session Anxiety or Irritability: 2=Irritable/Anxious Goose Flesh Skin: 0=Smooth Skin COWS Score: 16
--- NOTE | 2020-05-19 18:15 | HP ---
COWS - Scale Resting Pulse: 1= [place] 81-100 Sweatin= Chills/Flushing Restless Observation: 3= Extraneous Movement Pupil Size: 1= Pupils >than Normal Bone or Joint Aches: 2= Severe Diffuse Aches Runny Nose/ Eye Tearin= Nasal Congestion GI Upset > 30mins: 2= Nausea/Diarrhea Tremor Observation: 2= Slight Tremor Visible Yawning Observation: 1= 1-2x During Session Anxiety or Irritability: 2=Irritable/Anxious Goose Flesh Skin: 0=Smooth Skin COWS Score: 16 CIWA Score - Admission Criteria OASAS Guidelines: Admission for Medically Managed Detox: Requires at least one of the followin. CIWA greater than 12 2. Seizures within the past 24 hours 3. Delirium tremens within the past 24 hours 4. Hallucinations within the past 24 hours 5. Acute intervention needed for co occurring medical disorder 6. Acute intervention needed for co occurring psychiatric disorder 7. Severe withdrawal that cannot be handled at a lower level of care (continued vomiting, continued diarrhea, abnormal vital signs) requiring intravenous medication and/or fluids 8. Admitting History and Physical - Admission Chief Complaint: i need help to stopusingheroin,cocaine History of Present Illness: this 49 years old female with heroin and cocaine dependence seeking detox,withdrawal symptom History Source: Patient Limitations to Obtaining History: No Limitations - Past Medical History Cardiovascular: Yes: HTN Pulmonary: Yes: Asthma Gastrointestinal: Yes: Gastritis, GERD ...LMP: 05/05/20 ...: No Heme/Onc: Yes: Anemia Psych: Yes: Depression Musculoskeletal: Yes: Chronic low back pain, Osteoarthritis - Past Surgical History Past Surgical History: Yes: Cholecystectomy - Smoking History Smoking history: Current every day smoker Have you smoked in the past 12 months: Yes Aproximately how many cigarettes per day: 10 - Alcohol/Substance Use Hx Alcohol Use: No (none x one year) History of Substance Use: reports: Cocaine, Heroin, Marijuana Date of Last Use: 05/04/20 - Social History Usual Living Arrangement: Yes: With Child Do you think of yourself as: Straight/Heterosexual ADL: Independent Occupation: unemployed History of Recent Travel: No Other Social History: unemployed,no legal issue, Admission ROS [facility] - HPI Chief Complaint: i need help to stop using heroin,cocaine and marijuana Allergies/Adverse Reactions: Allergies Allergy/AdvReac Type Severity Reaction Status Date / Time chlordiazepoxide Allergy Severe Difficulty Verified 05/19/20 18:36 [From Librium] Breathing History of Present Illness: this 49 years old female with heroin,cocaine and marijuana dependence,seeking detox,withdrawal symptom, multiple admissions in detox and rehab but keep relapsing no seizure no syncope nicotine dependence last detox [facility] 02/03/20 to 02/08/20 longest sobriety 9 years weight loss anxiety,depression living with daughter plan for rehab after detox fell [address],abrasion of left knee, history of osteoarthritis of both knees Exam Limitations: No Limitations - Ebola screening Have you traveled outside of the country in the last 21 days: No Have you had contact with anyone from an Ebola affected area: No Have you been sick,other than usual withdrawal symptoms: No Do you have a fever: No - Review of Systems Constitutional: Chills, Loss of Appetite, Malaise, Night Sweats, Changes in sleep, Weakness, Unintentional Wgt. Loss EENT: reports: Tearing, Nose Congestion Respiratory: reports: No Symptoms reported, Other (asthma) Cardiac: reports: No Symptoms Reported GI: reports: Diarrhea, Nausea, Poor Appetite, Vomiting, Abdominal cramping : reports: No Symptoms Reported Musculoskeletal: reports: Back Pain, Joint Pain, Muscle Pain Integumentary: reports: Dryness Neuro: reports: Headache Endocrine: reports: No Symptoms Reported Hematology: reports: No Symptoms Reported, Anemia Psychiatric: reports: No Sypmtoms Reported, Judgement Intact, Mood/Affect Appropiate, Orientated x3, Anxious, Depressed Other Systems: Reviewed and Negative Patient History - Patient Medical History Hx Anemia: Yes (no med for 2 months) Hx Asthma: Yes (on albuterol inhaler) Hx Chronic Obstructive Pulmonary Disease (COPD): No Hx Cancer: Yes (cervical ca ,follow up with 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) Hx Cardiac Disorders: No Hx Congestive Heart Failure: No Hx Hypertension: No Hx Hypercholesterolemia: No Hx Pacemaker: No HX Cerebrovascular Accident: No Hx Seizures: No Hx Dementia: No Hx Diabetes: No Hx Gastrointestinal Disorders: No Hx Liver Disease: No Hx Genitourinary Disorders: No Hx Sexually Transmitted Disorders: No Hx Renal Disease (ESRD): No Hx Thyroid Disease: No Hx Human Immunodeficiency Virus (HIV): No Hx Hepatitis C: No Hx Depression: Yes (anxiety) Hx Suicide Attempt: No Hx Bipolar Disorder: No Hx Schizophrenia: No Other Medical History: no suicidal,no homicidal - Patient Surgical History Past Surgical History: Yes Hx Neurologic Surgery: No Hx Cataract Extraction: No Hx Cardiac Surgery: No Hx Lung Surgery: No Hx Breast Surgery: No Hx Breast Biopsy: No Hx Abdominal Surgery: No Hx Appendectomy: No Hx Cholecystectomy: Yes (lap in 2006) Hx Genitourinary Surgery: Yes (carcinoma in situ ) Hx Section: No Hx Orthopedic Surgery: No Other Surgical History: Pt had a colposcopy. Anesthesia Reaction: No - PPD History Previous Implant?: Yes Documented Results: Negative w/proof Implanted On Prior [facility] Admission?: No Date: 10/31/19 Results: 0mm PPD to be Administered?: No - Reproductive History Patient is a Female of Child Bearing Age (11 -55 yrs old): Yes Last Menstrual Period: 05/04/20 Patient : No - Smoking Cessation Smoking history: Current every day smoker Have you smoked in the past 12 months: Yes Aproximately how many cigarettes per day: 10 Cigars Per Day: 0 Hx Chewing Tobacco Use: No Initiated information on smoking cessation: Yes 'Breaking Loose' booklet given: 05/19/20 - Substance & Tx. History Hx Alcohol Use: No Hx Substance Use: Yes Substance Use Type: Cocaine, Heroin, Marijuana Hx Substance Use Treatment: Yes ([facility] 02/03/20 to 02/08/20) - Substances abused Heroin Substance route: Inhalation Frequency: Daily Amount used: 8 bags Age of first use: 30 Date of last use: 05/18/20 Cocaine Substance route: Smoking Frequency: 3-6 times per week Amount used: 10$ Age of first use: 30 Date of last use: 05/18/20 Marijuana/Hashish Substance route: Smoking Frequency: Daily Amount used: 10$ Age of first use: 14 Date of last use: 05/18/20 Admission Physical Exam [facility] - Vital Signs Vital Signs: Vital Signs Temperature 97.1 F L 05/19/20 18:40 Pulse Rate 95 H 05/19/20 18:40 Respiratory Rate 18 05/19/20 18:40 Blood Pressure O2 Sat by Pulse Oximetry (%) - Physical General Appearance: Yes: Appropriately Dressed, Disheveled, Moderate Distress, Irritable HEENTM: Yes: Normal ENT Inspection, ANGEL, Pharynx Normal Respiratory: Yes: Lungs Clear, Normal Breath Sounds, No Respiratory Distress Neck: Yes: Within Normal Limits, Supple, Trachea in good position Breast: Yes: Breast Exam Deferred Cardiology: Yes: Within Normal Limits, Regular Rhythm, Regular Rate, S1, S2 Abdominal: Yes: Within Normal Limits, Normal Bowel Sounds, Non Tender, Flat, Soft, Surgical Scar (s/p lap cholecystectomy) Genitourinary: Yes: Within Normal Limits Back: Yes: Muscle Spasm Musculoskeletal: Yes: Back pain, Muscle Pain Extremities: Yes: Tremors Neurological: Yes: Within Normal Limits, 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, Fully Oriented, Alert, Motor Strength 5/5 Integumentary: Yes: Dry (abrasion of left knee,fell 2 days ago ambulatyion without dificulty) - Diagnostic (1) Opioid dependence with withdrawal Current Visit: No Status: Acute (2) Cannabis dependence Current Visit: No Status: Acute (3) Cocaine dependence Current Visit: No Status: Acute (4) Asthma Current Visit: No Status: Chronic Qualifiers: Asthma severity: mild Asthma persistence: intermittent Asthma complication type: unspecified Qualified Code(s): J45.20 - Mild intermittent asthma, uncomplicated (5) GERD (gastroesophageal reflux disease) Current Visit: No Status: Chronic Qualifiers: Esophagitis presence: without esophagitis Qualified Code(s): K21.9 - Gastro-esophageal reflux disease without esophagitis (6) HTN (hypertension) Current Visit: No Status: Chronic Qualifiers: Hypertension type: essential hypertension Qualified Code(s): I10 - Essential (primary) hypertension (7) Low back pain Current Visit: No Status: Chronic Qualifiers: Chronicity: chronic Back pain laterality: bilateral Sciatica presence: with sciatica (8) Nicotine dependence Current Visit: No Status: Chronic Qualifiers: Nicotine product type: cigarettes Substance use status: uncomplicated Qualified Code(s): F17.210 - Nicotine dependence, cigarettes, uncomplicated (9) Osteoarthritis of both knees Current Visit: No Status: Chronic Qualifiers: Osteoarthritis type: primary Qualified Code(s): M17.0 - Bilateral primary osteoarthritis of knee (10) Anemia Current Visit: No Status: Resolved (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 Current Visit: No Status: Resolved Qualifiers: Carcinoma in situ of uterine cervix location: unspecified part of cervix Qualified Code(s): D06.9 - Carcinoma in situ of cervix, unspecified (12) Abrasion of left knee Current Visit: Yes Status: Acute (13) History of fall Current Visit: Yes Status: Acute (14) History of laparoscopic cholecystectomy Current Visit: Yes Status: Acute Cleared for Admission [facility] - Detox or Rehab [facility] Level of Care: Medically Managed Detox Regimen/Protocol: Methadone Breathalyzer - Breathalyzer Breathalyzer: 0 POC Urine test - Test device test lot number: [id number] Expiration date: 07/30/20 - Control test control: Yes Urine Drug Screen - Test Device Lot number: [id number] Expiration date: 10/29/21 - Control Is test valid?: Yes - Results Drug screen NEGATIVE: No Urine drug screen results: THC-Marijuana, [place]-Cocaine, FEN-Fentanyl, MOP-Opiates Inpatient Rehab Admission - Rehab Decision to Admit Inpatient rehab admission?: No
[2020-05-19] MEDS ORDERED: MAGNESIUM HYDROX 2400MG/30ML ORAL SUSPENSION 30 ML CUP PO PRN (18:37)
[2020-05-19] MEDS ORDERED: ACETAMINOPHEN 325 MG TABLET (FP) PO PRN (18:37)
[2020-05-19] MEDS ORDERED: cloNIDine HCL 0.1 MG TABLET PO PRN (18:37)
[2020-05-19] MEDS ORDERED: MAGNESIUM CITRATE 300 ML BOTTLE PO PRN (18:37)
[2020-05-19] MEDS ORDERED: MAG HYDROX/AL HYDROX/SIMETH 30 ML UNIT-DOSE CUP PO PRN (18:37)
[2020-05-19] MEDS ORDERED: BISMUTH SUBSALICYLATE 524 MG/30 ML UD PO PRN (18:37)
[2020-05-19] MEDS ORDERED: MENTHOL/PHENOL 1 EACH UD MM PRN (18:37)
[2020-05-19] MEDS ORDERED: NICOTINE POLACRILEX 2 MG GUM BUC PRN (18:37)
[2020-05-19] MEDS ORDERED: ALBUTEROL SO4 HFA INHALER IH PRN (18:40)
[2020-05-19 18:45] VITALS: BMI 28.4
--- NOTE | 2020-05-19 18:48 | PN ---
[facility] Progress Note Note: patient is allergic to librium but stated no problem with valium
[2020-05-19] MEDS ORDERED: METHADONE HCL 10 MG TABLET (FOR DETOX USE ONLY) PO ONE (19:15)
[2020-05-19] MEDS ORDERED: ONDANSETRON *ODT* 4 MG TABLET SL ONE (19:15)
[2020-05-19] MEDS: diazePAM 5 MG TABLET PO PRN (19:33)
[2020-05-19] MEDS: PANTOPRAZOLE 40 MG TABLET PO SCH (19:33)
[2020-05-19] MEDS: NICOTINE 21 MG/24 HOURS TOPICAL PATCH TD SCH (19:35)
[2020-05-19] MEDS: IBUPROFEN 400 MG TABLET (FP) PO PRN (20:25)
[2020-05-19] MEDS: METHOCARBAMOL 500 MG TABLET PO PRN (20:25)
[2020-05-19] MEDS: BACITRACIN 0.9 GM PACKET TP SCH (22:20)
[2020-05-19] MEDS: hydrOXYzine PAMOATE 25 MG CAPSULE (FP) PO SCH (22:20)
[2020-05-19] MEDS: MELATONIN 5 MG TABLETS PO SCH (22:20)
[2020-05-19] MEDS: THIAMINE HCL 100 MG TABLET (FP) PO SCH (22:20)
[2020-05-20] MEDS: METHOCARBAMOL 500 MG TABLET PO PRN ×3 (06:13→21:50)
[2020-05-20] MEDS: IBUPROFEN 400 MG TABLET (FP) PO PRN ×3 (06:13→21:50)
[2020-05-20] MEDS: hydrOXYzine PAMOATE 25 MG CAPSULE (FP) PO SCH ×5 (06:13→21:52)
[2020-05-20] MEDS ORDERED: METHADONE HCL 10 MG TABLET (FOR DETOX USE ONLY) ONE (09:19)
[2020-05-20] MEDS ORDERED: METHADONE HCL 5 MG TABLET (FOR DETOX USE ONLY) ONE (09:19)
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
[2020-05-20 10:00] LABS: HEMATOCRIT 38.2 % (32.4-45.2); HEMOGLOBIN 12.4 GM/dL (10.7-15.3); MCH 27.8 pg (25.7-33.7); MCHC 32.3 g/dl (32.0-36.0); MEAN CELL VOLUME 86.1 fl (80-96); MEAN PLT VOLUME 8.8 fl (7.5-11.1); PLATELET COUNT 284 K/MM3 (134-434); RBC 4.44 M/mm3 (3.60-5.2); RDW 15.2 % (11.6-15.6); WHITE BLOOD COUNT 9.5 K/mm3 (4.0-10.0)
[2020-05-20] MEDS ORDERED: METHADONE (DETOX) 20 MG, METHADONE (DETOX) 5 MG PO ONE (10:00)
[2020-05-20 10:09] LABS: ALBUMIN 3.2 g/dl (3.4-5.0); BILIRUBIN,TOTAL 0.3 mg/dL (0.2-1); CALCIUM 8.9 mg/dL (8.5-10.1); CREATININE 0.8 mg/dL (0.55-1.3); POTASSIUM 3.8 mmol/L (3.5-5.1)
[2020-05-20] MEDS: BACITRACIN 0.9 GM PACKET TP SCH ×2 (10:52→21:50)
[2020-05-20] MEDS: NICOTINE 21 MG/24 HOURS TOPICAL PATCH TD SCH (10:53)
[2020-05-20] MEDS: QUEtiapine FUMARATE 50 MG TABLET PO SCH (10:53)
[2020-05-20] MEDS: PRENATAL VITAMINS W/ FOLIC ACID TABLET (FP) PO SCH (10:53)
[2020-05-20] MEDS: PANTOPRAZOLE 40 MG TABLET PO SCH (10:53)
[2020-05-20] MEDS: diazePAM 5 MG TABLET PO PRN (10:53)
--- NOTE | 2020-05-20 12:51 | PN ---
[facility] COWS - Scale Resting Pulse: 0= [place] 80 or Below Sweatin= Chills/Flushing Restless Observation: 1= Difficult to Sit Still Pupil Size: 0= Normal to Room Light Bone or Joint Aches: 2= Severe Diffuse Aches Runny Nose/ Eye Tearin= Nasal Congestion GI Upset > 30mins: 0= None Tremor Observation of Outstretched Hands: 2= Slight Tremor Visible Yawning Observation: 0= None Anxiety or Irritability: 2=Irritable/Anxious Goose Flesh Skin: 0=Smooth Skin COWS Score: 9 B[facility] Progress Note (SOAP) Subjective: Complaints of sweats, shakes, anxiety and body aches. Objective: 05/20/20 12:50 Vital Signs 05/20/20 05/20/20 05:50 08:57 Temperature 97.8 F 97.8 F Pulse Rate 68 72 Respiratory 18 18 Rate Blood Pressure 135/95 146/81 O2 Sat by Pulse 99 Oximetry (%) Laboratory Last Values WBC 9.5 K/mm3 (4.0-10.0) 05/20/20 07:10 RBC 4.44 M/mm3 (3.60-5.2) 05/20/20 07:10 Hgb 12.4 GM/dL (10.7-15.3) 05/20/20 07:10 Hct 38.2 % (32.4-45.2) 05/20/20 07:10 MCV 86.1 fl (80-96) 05/20/20 07:10 MCH 27.8 pg (25.7-33.7) 05/20/20 07:10 MCHC 32.3 g/dl (32.0-36.0) 05/20/20 07:10 RDW 15.2 % (11.6-15.6) 05/20/20 07:10 Plt Count 284 K/MM3 (134-434) 05/20/20 07:10 MPV 8.8 fl (7.5-11.1) 05/20/20 07:10 Sodium 140 mmol/L (136-145) 05/20/20 07:10 Potassium 3.8 mmol/L (3.5-5.1) 05/20/20 07:10 Chloride 105 mmol/L (98-107) 05/20/20 07:10 Carbon Dioxide 27 mmol/L (21-32) 05/20/20 07:10 Anion Gap 8 MMOL/L (8-16) 05/20/20 07:10 BUN 16.0 mg/dL (7-18) 05/20/20 07:10 Creatinine 0.8 mg/dL (0.55-1.3) 05/20/20 07:10 Est GFR (CKD-EPI)AfAm 98.93 05/20/20 07:10 Est GFR (CKD-EPI)NonAf 85.36 05/20/20 07:10 Random Glucose 115 mg/dL (74-106) H 05/20/20 07:10 Calcium 8.9 mg/dL (8.5-10.1) 05/20/20 07:10 Total Bilirubin 0.3 mg/dL (0.2-1) 05/20/20 07:10 AST 11 U/L (15-37) L 05/20/20 07:10 ALT 15 U/L (13-61) 05/20/20 07:10 Alkaline Phosphatase 106 U/L (45-117) 05/20/20 07:10 Total Protein 7.0 g/dl (6.4-8.2) 05/20/20 07:10 Albumin 3.2 g/dl (3.4-5.0) L 05/20/20 07:10 Syphilis Serology Non-reactive (NONREACTIVE) 05/20/20 07:10 Labs reviewed. Assessment: 05/20/20 12:50 Alert and oriented x 3, in no acute respiratory distress. Full ROM, ambulating in the unit with no assistance. Mild withdrawal symptoms. Plan: Continue detox protocol. COVID 19 results pending.
[2020-05-20] MEDS: QUEtiapine FUMARATE 100 MG TABLET (FP) PO SCH (21:50)
[2020-05-20] MEDS: THIAMINE HCL 100 MG TABLET (FP) PO SCH (21:50)
[2020-05-20] MEDS: MELATONIN 5 MG TABLETS PO SCH (21:52)
[2020-05-21] MEDS: IBUPROFEN 400 MG TABLET (FP) PO PRN ×3 (05:55→17:49)
[2020-05-21] MEDS: METHOCARBAMOL 500 MG TABLET PO PRN ×2 (05:55→22:20)
[2020-05-21] MEDS: hydrOXYzine PAMOATE 25 MG CAPSULE (FP) PO SCH ×2 (05:55→10:16)
[2020-05-21] MEDS ORDERED: METHADONE HCL 10 MG TABLET (FOR DETOX USE ONLY) PO ONE (10:00)
[2020-05-21] MEDS: NICOTINE 21 MG/24 HOURS TOPICAL PATCH TD SCH (10:15)
[2020-05-21] MEDS: PRENATAL VITAMINS W/ FOLIC ACID TABLET (FP) PO SCH (10:15)
[2020-05-21] MEDS: BACITRACIN 0.9 GM PACKET TP SCH ×2 (10:15→22:17)
[2020-05-21] MEDS: QUEtiapine FUMARATE 50 MG TABLET PO SCH (10:18)
[2020-05-21] MEDS: PANTOPRAZOLE 40 MG TABLET PO SCH (10:18)
[2020-05-21] MEDS: diazePAM 5 MG TABLET PO PRN ×3 (10:21→22:20)
[2020-05-21] MEDS: LIDOCAINE 5% TOPICAL PATCH TP SCH (10:39)
[2020-05-21] MEDS: GABAPENTIN 300 MG CAPSULE PO SCH ×2 (10:39→22:17)
--- NOTE | 2020-05-21 12:23 | PN ---
BHS COWS - Scale Resting Pulse: 0= [place] 80 or Below Sweatin= Chills/Flushing Restless Observation: 1= Difficult to Sit Still Pupil Size: 0= Normal to Room Light Bone or Joint Aches: 2= Severe Diffuse Aches Runny Nose/ Eye Tearin= Nasal Congestion GI Upset > 30mins: 1= Stomach Cramp Tremor Observation of Outstretched Hands: 2= Slight Tremor Visible Yawning Observation: 1= 1-2x During Session Anxiety or Irritability: 2=Irritable/Anxious Goose Flesh Skin: 0=Smooth Skin COWS Score: 11 BHS Progress Note (SOAP) Subjective: sweats shakes body aches interrupted sleep agitation Objective: 05/21/20 12:22 Vital Signs Temperature 97.8 F 05/21/20 08:50 Pulse Rate 78 05/21/20 08:50 Respiratory Rate 18 05/21/20 08:50 Blood Pressure 148/69 05/21/20 08:50 O2 Sat by Pulse Oximetry (%) 100 05/21/20 05:40 Laboratory Tests 05/20/20 05/20/20 05/20/20 07:10 07:10 07:10 WBC 9.5 RBC 4.44 Hgb 12.4 Hct 38.2 MCV 86.1 MCH 27.8 MCHC 32.3 RDW 15.2 Plt Count 284 MPV 8.8 Sodium 140 Potassium 3.8 Chloride 105 Carbon Dioxide 27 Anion Gap 8 BUN 16.0 Creatinine 0.8 Est GFR (CKD-EPI)AfAm 98.93 Est GFR (CKD-EPI)NonAf 85.36 Random Glucose 115 H Calcium 8.9 Total Bilirubin 0.3 AST 11 L ALT 15 Alkaline Phosphatase 106 Total Protein 7.0 Albumin 3.2 L Syphilis Serology Non-reactive labs noted aaox3 ambulating no acute distress Assessment: 05/21/20 12:22 withdrawals Plan: continue detox gabapentin 300mg bid motrin 800mg tid prn lidocaine patch roboxin prn
[2020-05-21 14:10] LABS: EPI CELLS >36 /uL (0-25.1); HYALINE CASTS 7 /uL (0-3.1); URINE APPEARANCE TURBID; URINE BACTERIA 583 /uL (0-1359); URINE BILIRUBIN NEGATIVE (NEGATIVE); URINE COLOR ORANGE; URINE GLUCOSE (UA) NEGATIVE (NEGATIVE); URINE KETONE NEGATIVE (NEGATIVE); URINE LEUK ESTERASE 2+ (NEGATIVE); URINE NITRITE NEGATIVE (NEGATIVE); URINE PROTEIN 1+ (NEGATIVE); URINE WBC 578 /uL (0-25.8)
[2020-05-21] MEDS: NITROFURANTOIN MACROCRYSTAL 50 MG CAPSULE (FP) PO SCH (17:47)
[2020-05-21] MEDS: hydrOXYzine PAMOATE 25 MG CAPSULE (FP) PO PRN ×2 (17:49→22:22)
[2020-05-21 18:15] LABS: URINE RBC 59 /uL (0-23.9); YEAST NEGATIVE (NEGATIVE)
[2020-05-21] MEDS: QUEtiapine FUMARATE 100 MG TABLET (FP) PO SCH (22:17)
[2020-05-21] MEDS: THIAMINE HCL 100 MG TABLET (FP) PO SCH (22:17)
[2020-05-21 23:38] LABS: EPI CELLS 10 /uL (0-25.1); HYALINE CASTS 1 /uL (0-3.1); PH,URINE 5.5 (5.0-8.0); URINE APPEARANCE CLOUDY; URINE BACTERIA 101 /uL (0-1359); URINE BILIRUBIN NEGATIVE (NEGATIVE); URINE COLOR YELLOW; URINE GLUCOSE (UA) NEGATIVE (NEGATIVE); URINE KETONE NEGATIVE (NEGATIVE); URINE LEUK ESTERASE 2+ (NEGATIVE); URINE NITRITE NEGATIVE (NEGATIVE); URINE PROTEIN 1+ (NEGATIVE); URINE RBC 2492 /uL (0-23.9); URINE WBC 324 /uL (0-25.8)
[2020-05-22] MEDS: LIDOCAINE PATCH REMOVAL MC SCH (00:01)
[2020-05-22] MEDS: MELATONIN 5 MG TABLETS PO SCH (00:01)
[2020-05-22] MEDS: NITROFURANTOIN MACROCRYSTAL 50 MG CAPSULE (FP) PO SCH ×4 (00:06→18:25)
[2020-05-22] MEDS: IBUPROFEN 400 MG TABLET (FP) PO PRN ×3 (06:00→22:22)
[2020-05-22] MEDS: METHOCARBAMOL 500 MG TABLET PO PRN ×2 (06:01→22:20)
[2020-05-22] MEDS: hydrOXYzine PAMOATE 25 MG CAPSULE (FP) PO PRN ×3 (06:01→22:21)
[2020-05-22] MEDS ORDERED: METHADONE HCL 5 MG TABLET (FOR DETOX USE ONLY) ONE (09:12)
[2020-05-22] MEDS ORDERED: METHADONE HCL 10 MG TABLET (FOR DETOX USE ONLY) ONE (09:12)
[2020-05-22] MEDS ORDERED: METHADONE (DETOX) 10 MG, METHADONE (DETOX) 5 MG PO ONE (10:00)
[2020-05-22] MEDS: PRENATAL VITAMINS W/ FOLIC ACID TABLET (FP) PO SCH (10:13)
[2020-05-22] MEDS: GABAPENTIN 300 MG CAPSULE PO SCH ×2 (10:14→22:21)
[2020-05-22] MEDS: LIDOCAINE 5% TOPICAL PATCH TP SCH (10:14)
[2020-05-22] MEDS: NICOTINE 21 MG/24 HOURS TOPICAL PATCH TD SCH (10:14)
[2020-05-22] MEDS: METHYL SALICYLATE/MENTHOL OINT 30 GM TUBE TP SCH ×2 (10:14)
[2020-05-22] MEDS: BACITRACIN 0.9 GM PACKET TP SCH (10:14)
[2020-05-22] MEDS: PANTOPRAZOLE 40 MG TABLET PO SCH (10:15)
[2020-05-22] MEDS: QUEtiapine FUMARATE 50 MG TABLET PO SCH (10:15)
[2020-05-22] MEDS: MINERAL OIL/PETROLAT/WATER TOPICAL CREAM 113 GM JAR TP SCH (10:18)
[2020-05-22] MEDS: diazePAM 5 MG TABLET PO PRN (10:22)
[2020-05-22] MEDS ORDERED: LIDOCAINE VISCOUS 2% ORAL/TOP 20 ML UNIT-DOSE CUP MM PRN (11:43)
--- NOTE | 2020-05-22 11:48 | PN ---
BHS COWS - Scale Resting Pulse: 1= [place] 81-100 Sweatin= Chills/Flushing Restless Observation: 1= Difficult to Sit Still Pupil Size: 0= Normal to Room Light Bone or Joint Aches: 2= Severe Diffuse Aches Runny Nose/ Eye Tearin= Runny Nose/Eyes GI Upset > 30mins: 0= None Tremor Observation of Outstretched Hands: 1= Tremor [place], Not Seen Yawning Observation: 1= 1-2x During Session Anxiety or Irritability: 2=Irritable/Anxious Goose Flesh Skin: 0=Smooth Skin COWS Score: 11 S Progress Note (SOAP) Subjective: sweats body aches interrupted sleep agitation tooth ache Objective: 05/22/20 13:33 Vital Signs Temperature 97.7 F 05/22/20 08:25 Pulse Rate 82 05/22/20 08:25 Respiratory Rate 18 05/22/20 08:25 Blood Pressure 137/53 L 05/22/20 08:25 O2 Sat by Pulse Oximetry (%) 96 05/22/20 06:32 Laboratory Tests 05/19/20 05/20/20 05/20/20 23:18 07:10 07:10 WBC 9.5 RBC 4.44 Hgb 12.4 Hct 38.2 MCV 86.1 MCH 27.8 MCHC 32.3 RDW 15.2 Plt Count 284 MPV 8.8 Sodium Potassium Chloride Carbon Dioxide Anion Gap BUN Creatinine Est GFR (CKD-EPI)AfAm Est GFR (CKD-EPI)NonAf Random Glucose Calcium Total Bilirubin AST ALT Alkaline Phosphatase Total Protein Albumin Urine Color Urine Appearance Urine pH Ur Specific [place] Urine Protein Urine Glucose (UA) Urine Ketones Urine Blood Urine Nitrite Urine Bilirubin Urine Urobilinogen Ur Leukocyte Esterase Urine WBC (Auto) Urine RBC (Auto) Urine Casts (Auto) U Pathogenic Cast Auto U Epithel Cells (Auto) Urine Bacteria (Auto) Urine Yeast (Auto) POC Urine HCG, Qual Negative Syphilis Serology Non-reactive 05/20/20 05/21/20 05/21/20 07:10 10:35 23:18 WBC RBC Hgb Hct MCV MCH MCHC RDW Plt Count MPV Sodium 140 Potassium 3.8 Chloride 105 Carbon Dioxide 27 Anion Gap 8 BUN 16.0 Creatinine 0.8 Est GFR (CKD-EPI)AfAm 98.93 Est GFR (CKD-EPI)NonAf 85.36 Random Glucose 115 H Calcium 8.9 Total Bilirubin 0.3 AST 11 L ALT 15 Alkaline Phosphatase 106 Total Protein 7.0 Albumin 3.2 L Urine Color [place] Yellow Urine Appearance Turbid Cloudy Urine pH 5.0 5.5 Ur Specific [place] 1.019 1.020 Urine Protein 1+ H 1+ H Urine Glucose (UA) Negative Negative Urine Ketones Negative Negative Urine Blood 3+ H 3+ H Urine Nitrite Negative Negative Urine Bilirubin Negative Negative Urine Urobilinogen 1.0 1.0 Ur Leukocyte Esterase 2+ H 2+ H Urine WBC (Auto) 578 324 Urine RBC (Auto) 59 2492 Urine Casts (Auto) 7 1 U Pathogenic Cast Auto Negative U Epithel Cells (Auto) >36 10 Urine Bacteria (Auto) 583 101 Urine Yeast (Auto) Negative POC Urine HCG, Qual Syphilis Serology labs noted repeat u/a with culture noted; pt is currently on macrobid aaox3 ambulating no acute distress Assessment: 05/22/20 13:34 withdrawals gum swelling with abscess and tooth decay noted to upper tooth Plan: continue detox increase fluids amoxicillin ordered lidocaine s/s pt encouraged to see dentist after detox.
[2020-05-22] MEDS: AMOX TR/POT CLAV 500MG/125MG TABLETS (FP) PO SCH (18:25)
[2020-05-22] MEDS: THIAMINE HCL 100 MG TABLET (FP) PO SCH (22:20)
[2020-05-22] MEDS: QUEtiapine FUMARATE 100 MG TABLET (FP) PO SCH (22:21)
[2020-05-23] MEDS: METHYL SALICYLATE/MENTHOL OINT 30 GM TUBE TP SCH ×3 (00:15→22:56)
[2020-05-23] MEDS: BACITRACIN 0.9 GM PACKET TP SCH ×3 (00:15→22:56)
[2020-05-23] MEDS: MELATONIN 5 MG TABLETS PO SCH ×2 (00:16→22:23)
[2020-05-23] MEDS: MINERAL OIL/PETROLAT/WATER TOPICAL CREAM 113 GM JAR TP SCH ×3 (00:16→22:56)
[2020-05-23] MEDS: LIDOCAINE PATCH REMOVAL MC SCH ×2 (00:16→22:56)
[2020-05-23] MEDS: NITROFURANTOIN MACROCRYSTAL 50 MG CAPSULE (FP) PO SCH ×5 (01:02→23:05)
[2020-05-23] MEDS: IBUPROFEN 400 MG TABLET (FP) PO PRN ×3 (05:32→23:16)
[2020-05-23] MEDS: METHOCARBAMOL 500 MG TABLET PO PRN ×3 (05:33→22:25)
[2020-05-23] MEDS: AMOX TR/POT CLAV 500MG/125MG TABLETS (FP) PO SCH ×2 (07:14→17:18)
[2020-05-23] MEDS ORDERED: METHADONE HCL 10 MG TABLET (FOR DETOX USE ONLY) PO ONE (10:00)
[2020-05-23] MEDS: PRENATAL VITAMINS W/ FOLIC ACID TABLET (FP) PO SCH (10:09)
[2020-05-23] MEDS: QUEtiapine FUMARATE 50 MG TABLET PO SCH (10:10)
[2020-05-23] MEDS: PANTOPRAZOLE 40 MG TABLET PO SCH (10:11)
[2020-05-23] MEDS: GABAPENTIN 300 MG CAPSULE PO SCH ×2 (10:11→22:23)
[2020-05-23] MEDS: hydrOXYzine PAMOATE 25 MG CAPSULE (FP) PO PRN ×3 (10:14→22:22)
[2020-05-23] MEDS: NICOTINE 21 MG/24 HOURS TOPICAL PATCH TD SCH (10:15)
[2020-05-23] MEDS: LIDOCAINE 5% TOPICAL PATCH TP SCH (10:15)
--- NOTE | 2020-05-23 10:56 | PN ---
BHS COWS - Scale Resting Pulse: 0= [place] 80 or Below Sweatin= Chills/Flushing Restless Observation: 1= Difficult to Sit Still Pupil Size: 0= Normal to Room Light Bone or Joint Aches: 1= Mild Discomfort Runny Nose/ Eye Tearin= None GI Upset > 30mins: 0= None Tremor Observation of Outstretched Hands: 1= Tremor [place], Not Seen Yawning Observation: 0= None Anxiety or Irritability: 1=Feels Anxious/Irritable Goose Flesh Skin: 0=Smooth Skin COWS Score: 5 BHS Progress Note (SOAP) Subjective: sweats shakes restless/anxiety Objective: 05/23/20 10:55 Vital Signs Temperature 97.5 F L 05/23/20 08:35 Pulse Rate 79 05/23/20 08:35 Respiratory Rate 18 05/23/20 08:35 Blood Pressure 130/97 05/23/20 08:35 O2 Sat by Pulse Oximetry (%) 100 05/23/20 05:26 aaox3 ambulating no acute distress Assessment: 05/23/20 10:55 withdrawals Plan: continue detox valium prn x one day d/c in am
[2020-05-23] MEDS: diazePAM 5 MG TABLET PO PRN ×3 (11:25→22:22)
[2020-05-23] MEDS: ACETAMINOPHEN 325 MG TABLET (FP) PO PRN (17:18)
[2020-05-23] MEDS: QUEtiapine FUMARATE 100 MG TABLET (FP) PO SCH (22:23)
[2020-05-23] MEDS: THIAMINE HCL 100 MG TABLET (FP) PO SCH (22:23)
[2020-05-24] MEDS ORDERED: METHADONE HCL 5 MG TABLET (FOR DETOX USE ONLY) PO ONE (06:00)
[2020-05-24] MEDS: diazePAM 5 MG TABLET PO PRN (06:12)
[2020-05-24] MEDS: NITROFURANTOIN MACROCRYSTAL 50 MG CAPSULE (FP) PO SCH ×2 (06:12→12:28)
[2020-05-24] MEDS: METHOCARBAMOL 500 MG TABLET PO PRN (06:13)
[2020-05-24] MEDS: ACETAMINOPHEN 325 MG TABLET (FP) PO PRN (06:14)
[2020-05-24] MEDS: AMOX TR/POT CLAV 500MG/125MG TABLETS (FP) PO SCH (07:37)
[2020-05-24] MEDS: hydrOXYzine PAMOATE 25 MG CAPSULE (FP) PO PRN (07:55)
[2020-05-24] MEDS ORDERED: MASKS NR ONE (08:44)
--- NOTE | 2020-05-24 08:55 | DS ---
[facility] Detox Discharge Summary Admission Date: 05/19/20 Discharge Date: 05/24/20 - History Present History: Cannabis Dependence, Cocaine Dependence, Opioid Dependence - Physical Exam Results Vital Signs: Vital Signs Temperature 97.8 F 05/24/20 05:53 Pulse Rate 76 05/24/20 05:53 Respiratory Rate 18 05/24/20 05:53 Blood Pressure 141/62 05/24/20 05:53 O2 Sat by Pulse Oximetry (%) 100 05/24/20 05:53 Pertinent Admission Physical Exam Findings: Vital Signs Temperature 97.8 F 05/24/20 05:53 Pulse Rate 76 05/24/20 05:53 Respiratory Rate 18 05/24/20 05:53 Blood Pressure 141/62 05/24/20 05:53 O2 Sat by Pulse Oximetry (%) 100 05/24/20 05:53 Laboratory Tests 05/19/20 05/19/20 05/20/20 19:00 23:18 07:10 WBC RBC Hgb Hct MCV MCH MCHC RDW Plt Count MPV Sodium Potassium Chloride Carbon Dioxide Anion Gap BUN Creatinine Est GFR (CKD-EPI)AfAm Est GFR (CKD-EPI)NonAf Random Glucose Calcium Total Bilirubin AST ALT Alkaline Phosphatase Total Protein Albumin Urine Color Urine Appearance Urine pH Ur Specific [place] Urine Protein Urine Glucose (UA) Urine Ketones Urine Blood Urine Nitrite Urine Bilirubin Urine Urobilinogen Ur Leukocyte Esterase Urine WBC (Auto) Urine RBC (Auto) Urine Casts (Auto) U Pathogenic Cast Auto U Epithel Cells (Auto) Urine Bacteria (Auto) Urine Yeast (Auto) POC Urine HCG, Qual Negative Syphilis Serology Non-reactive COVID-19 (JENNIFER) Not detected 05/20/20 05/20/20 05/21/20 07:10 07:10 10:35 WBC 9.5 RBC 4.44 Hgb 12.4 Hct 38.2 MCV 86.1 MCH 27.8 MCHC 32.3 RDW 15.2 Plt Count 284 MPV 8.8 Sodium 140 Potassium 3.8 Chloride 105 Carbon Dioxide 27 Anion Gap 8 BUN 16.0 Creatinine 0.8 Est GFR (CKD-EPI)AfAm 98.93 Est GFR (CKD-EPI)NonAf 85.36 Random Glucose 115 H Calcium 8.9 Total Bilirubin 0.3 AST 11 L ALT 15 Alkaline Phosphatase 106 Total Protein 7.0 Albumin 3.2 L Urine Color [place] Urine Appearance Turbid Urine pH 5.0 Ur Specific [place] 1.019 Urine Protein 1+ H Urine Glucose (UA) Negative Urine Ketones Negative Urine Blood 3+ H Urine Nitrite Negative Urine Bilirubin Negative Urine Urobilinogen 1.0 Ur Leukocyte Esterase 2+ H Urine WBC (Auto) 578 Urine RBC (Auto) 59 Urine Casts (Auto) 7 U Pathogenic Cast Auto Negative U Epithel Cells (Auto) >36 Urine Bacteria (Auto) 583 Urine Yeast (Auto) Negative POC Urine HCG, Qual Syphilis Serology COVID-19 (JENNIFER) 05/21/20 23:18 WBC RBC Hgb Hct MCV MCH MCHC RDW Plt Count MPV Sodium Potassium Chloride Carbon Dioxide Anion Gap BUN Creatinine Est GFR (CKD-EPI)AfAm Est GFR (CKD-EPI)NonAf Random Glucose Calcium Total Bilirubin AST ALT Alkaline Phosphatase Total Protein Albumin Urine Color Yellow Urine Appearance Cloudy Urine pH 5.5 Ur Specific [place] 1.020 Urine Protein 1+ H Urine Glucose (UA) Negative Urine Ketones Negative Urine Blood 3+ H Urine Nitrite Negative Urine Bilirubin Negative Urine Urobilinogen 1.0 Ur Leukocyte Esterase 2+ H Urine WBC (Auto) 324 Urine RBC (Auto) 2492 Urine Casts (Auto) 1 U Pathogenic Cast Auto U Epithel Cells (Auto) 10 Urine Bacteria (Auto) 101 Urine Yeast (Auto) POC Urine HCG, Qual Syphilis Serology COVID-19 (JENNIFER) aaox3 ambulating no acute distress UTI improving with current ABX - Treatment Hospital Course: Detox Protocol Followed, Detoxed Safely, Responded well, Discharged Condition Good, Rehab Referral Accepted - Medication Discharge Medications: Ambulatory Orders Gabapentin 300 mg PO BID 12/14/19 Methocarbamol [Robaxin -] 500 mg PO BID 12/14/19 Omeprazole 40 mg PO DAILY 12/14/19 Albuterol Sulfate Inhaler - [Ventolin HFA Inhaler -] 2 inh PO Q4H PRN #1 inhaler 01/09/20 Mineral Oil/Petrolat,Wht/Water [Eucerin] 1 applic TP BID #1 jar 01/09/20 Quetiapine Fumarate [Seroquel -] 50 mg PO DAILY #30 tablet 01/09/20 Quetiapine Fumarate [Seroquel -] 100 mg PO HS #30 tablet 01/09/20 Colloidal Oatmeal [Aveeno Soap -] 1 applic TP PRN PRN 02/08/20 - Diagnosis (1) Cannabis dependence Current Visit: Yes Status: Chronic (2) Cocaine dependence Current Visit: Yes Status: Chronic Qualifiers: Substance use status: uncomplicated Qualified Code(s): F14.20 - Cocaine dependence, uncomplicated (3) History of laparoscopic cholecystectomy Current Visit: Yes Status: Acute (4) Opioid dependence with withdrawal Current Visit: Yes Status: Chronic (5) Substance induced mood disorder Current Visit: Yes Status: Acute (6) Substance-induced sleep disorder Current Visit: Yes Status: Acute (7) History of bipolar disorder Current Visit: Yes Status: Chronic (8) Mood disorder Current Visit: Yes Status: Chronic (9) Cannabis abuse Current Visit: No Status: Acute (10) Cocaine use disorder, severe, in early remission, dependence Current Visit: Yes Status: Chronic (11) Depression Current Visit: No Status: Acute (12) Depression Current Visit: No Status: Acute (13) Alcohol use disorder Current Visit: No Status: Chronic (14) Asthma Current Visit: No Status: Chronic Qualifiers: Asthma severity: mild Asthma persistence: intermittent Asthma complication type: unspecified Qualified Code(s): J45.20 - Mild intermittent asthma, uncomplicated (15) Bipolar disorder Current Visit: No Status: Chronic (16) Cannabis dependence Current Visit: No Status: Chronic (17) Cocaine dependence Current Visit: No Status: Chronic Qualifiers: Substance use status: uncomplicated Qualified Code(s): F14.20 - Cocaine dependence, uncomplicated (18) GERD (gastroesophageal reflux disease) Current Visit: No Status: Chronic Qualifiers: Esophagitis presence: without esophagitis Qualified Code(s): K21.9 - Gastro-esophageal reflux disease without esophagitis (19) HTN (hypertension) Current Visit: Yes Status: Chronic Qualifiers: Hypertension type: essential hypertension Qualified Code(s): I10 - Essential (primary) hypertension (20) Hepatitis C antibody positive in blood Current Visit: No Status: Chronic (21) Insomnia Current Visit: No Status: Chronic Qualifiers: Insomnia type: unspecified Qualified Code(s): G47.00 - Insomnia, unspecified (22) Low back pain Current Visit: No Status: Chronic Qualifiers: Chronicity: chronic Back pain laterality: bilateral Sciatica presence: with sciatica (23) Nicotine dependence Current Visit: No Status: Chronic Qualifiers: Nicotine product type: cigarettes Substance use status: uncomplicated Qualified Code(s): F17.210 - Nicotine dependence, cigarettes, uncomplicated (24) Non-compliance Current Visit: No Status: Chronic (25) Opioid use disorder Current Visit: No Status: Chronic (26) Osteoarthritis of both knees Current Visit: No Status: Chronic Qualifiers: Osteoarthritis type: primary Qualified Code(s): M17.0 - Bilateral primary osteoarthritis of knee (27) Sedative, hypnotic or anxiolytic use disorder, severe, in early remission, dependence Current Visit: No Status: Chronic (28) Anemia Current Visit: No Status: Resolved (29) Carcinoma uterine cervix in situ Current Visit: No Status: Resolved Qualifiers: Carcinoma in situ of uterine cervix location: unspecified part of cervix Qualified Code(s): D06.9 - Carcinoma in situ of cervix, unspecified - AMA Did Patient Leave Against Medical Advice: No
[2020-05-24 09:49] VITALS: BP 119/60; PULSE 81; TEMP 97.5
[2020-05-24] MEDS: PANTOPRAZOLE 40 MG TABLET PO SCH (10:35)
[2020-05-24] MEDS: PRENATAL VITAMINS W/ FOLIC ACID TABLET (FP) PO SCH (10:35)
[2020-05-24] MEDS: NICOTINE 21 MG/24 HOURS TOPICAL PATCH TD SCH (10:35)
[2020-05-24] MEDS: GABAPENTIN 300 MG CAPSULE PO SCH (10:35)
[2020-05-24] MEDS: BACITRACIN 0.9 GM PACKET TP SCH (10:36)
[2020-05-24] MEDS: METHYL SALICYLATE/MENTHOL OINT 30 GM TUBE TP SCH (10:36)
[2020-05-24] MEDS: MINERAL OIL/PETROLAT/WATER TOPICAL CREAM 113 GM JAR TP SCH (10:36)
[2020-05-24] MEDS: LIDOCAINE 5% TOPICAL PATCH TP SCH (10:37)
[2020-05-24] MEDS: QUEtiapine FUMARATE 50 MG TABLET PO SCH (10:37)
[2020-05-24] MEDS ORDERED: TOLNAFTATE 1% CREAM 15 GM TUBE TP SCH (12:15)
== END 2020-05-24 12:31 | disposition other institution (70) | DRG 773 ==
LOC: YASAS 17:59 → Y6N 19:07
PROVIDERS: ADMIT Allergy & Immunology; ATTEND Allergy & Immunology
PROC: HZ2ZZZZ Detoxification Services for Substance Abuse Treatment (ICD-10-PCS; principal; 2020-05-19)
DX: F11.23 Opioid dependence with withdrawal (principal); F14.20 Cocaine dependence, uncomplicated; F12.20 Cannabis dependence, uncomplicated; F17.210 Nicotine dependence, cigarettes, uncomplicated; F19.282 Other psychoactive substance dependence with psychoactive substance-induced sleep disorder; F19.24 Other psychoactive substance dependence with psychoactive substance-induced mood disorder; F31.9 Bipolar disorder, unspecified; F39 Unspecified mood [affective] disorder; I10 Essential (primary) hypertension; J45.20 Mild intermittent asthma, uncomplicated; K21.9 Gastro-esophageal reflux disease without esophagitis; M17.0 Bilateral primary osteoarthritis of knee; M54.41 Lumbago with sciatica, right side; M54.42 Lumbago with sciatica, left side; K04.7 Periapical abscess without sinus; K02.9 Dental caries, unspecified; R63.4 Abnormal weight loss; Z68.28 Body mass index [BMI] 28.0-28.9, adult; Z62.810 Personal history of physical and sexual abuse in childhood; Z91.410 Personal history of adult physical and sexual abuse; Z90.49 Acquired absence of other specified parts of digestive tract; Z86.2 Personal history of diseases of the blood and blood-forming organs and certain disorders involving the immune mechanism; Z88.8 Allergy status to other drugs, medicaments and biological substances; S80.212D Abrasion, left knee, subsequent encounter; W19.XXXD Unspecified fall, subsequent encounter
CPT/HCPCS: 36415; 80053; 81003; 81025; 85027; 86780; 87086; U0003

== ENCOUNTER 2020-05-24 12:33 | Inpatient (IN) | payer OTHER ==
[2020-05-24] MEDS ORDERED: LOPERAMIDE HCL 2 MG CAPSULE PO PRN (13:11)
[2020-05-24] MEDS ORDERED: guaiFENesin 200 MG/10 ML 10 ML UNIT-DOSE CUPS PO PRN (13:11)
[2020-05-24] MEDS ORDERED: P-EPHED 60MG/TRIPROLIDI 2.5MG TABLET PO PRN (13:11)
[2020-05-24] MEDS ORDERED: ACETAMINOPHEN 325 MG TABLET (FP) PO PRN (13:11)
[2020-05-24] MEDS ORDERED: NICOTINE POLACRILEX 2 MG GUM BC PRN (13:11)
[2020-05-24] MEDS ORDERED: MAG HYDROX/AL HYDROX/SIMETH 30 ML UNIT-DOSE CUP PO PRN (13:11)
[2020-05-24] MEDS ORDERED: MAGNESIUM HYDROX 2400MG/30ML ORAL SUSPENSION 30 ML CUP PO PRN (13:11)
[2020-05-24] MEDS ORDERED: MAGNESIUM CITRATE 300 ML BOTTLE PO PRN (13:11)
[2020-05-24] MEDS ORDERED: IBUPROFEN 400 MG TABLET (FP) PO PRN (13:11)
--- NOTE | 2020-05-24 13:11 | PN ---
S Progress Note (SOAP) Subjective: patient admitted to [facility] Patient reports that she had >90 days sober, but relapsed when her mother (COVID) PMHx: this 49 years old female with heroin,cocaine and marijuana dependence, completed detox, multiple admissions in detox and rehab no seizure no syncope nicotine dependence last detox [facility] 02/03/20 to 02/08/20 longest sobriety 9 years weight loss anxiety,depression living with daughter plan for rehab after detox fell [address],abrasion of left knee, history of osteoarthritis of both knees Objective: General: No apparent distress, appears sad HEENTM: Normocephalic, PERRLA Neck:supple Resp: unlabored CARDIAC: s1 s2 ABD: +BS MSK: hesitant gait, limited ROM lower extremities Neuro: no cognitive deficits noted 05/24/20 13:07 05/24/20 13:08 Assessment: Opioid use disorder 05/24/20 13:09 Plan: Rehab treatment Hydration, Nutrition. Maintain safety Continue to monitor.
[2020-05-24] MEDS ORDERED: MINERAL OIL/PETROLAT/WATER TOPICAL CREAM 454 GM JAR TP PRN (13:19)
[2020-05-24] MEDS ORDERED: ALBUTEROL SO4 HFA INHALER IH PRN (13:19)
[2020-05-24] MEDS: METHOCARBAMOL 500 MG TABLET PO PRN (14:07)
[2020-05-24] MEDS: hydrOXYzine PAMOATE 25 MG CAPSULE (FP) PO PRN ×2 (14:07→21:50)
--- NOTE | 2020-05-24 14:25 | HP ---
[facility] Rehab Assess/Revision - Admission History Admitted to Rehab from: [facility] - Vital signs Vital Signs: Vital Signs Period Temp Pulse Resp BP Sys/Mccracken Pulse Ox Last 24 Hr 98 - Findings Detox History & Physical reviewed: Yes Concur with findings: Yes Inpatient Rehab Admission - Rehab Decision to Admit Inpatient rehab admission?: Yes - Initial Determination Are CD services needed?: Yes Free of communicable disease: Yes Not in need of hospitalization: Yes - Rehab Admission Criteria Previous failed treatment: Yes Poor recovery environment: Yes Comorbidities: Yes Lacks judgement: Yes Patient is meeting Inpatient Rehab admission criteria:: Yes
[2020-05-24] MEDS ORDERED: LIDOCAINE VISCOUS 2% ORAL/TOP 20 ML UNIT-DOSE CUP MM PRN (14:30)
[2020-05-24] MEDS: AMOX TR/POT CLAV 500MG/125MG TABLETS (FP) PO SCH (17:44)
[2020-05-24] MEDS: NITROFURANTOIN MACROCRYSTAL 50 MG CAPSULE (FP) PO SCH (17:44)
[2020-05-24] MEDS: MELATONIN 5 MG TABLETS PO SCH (21:50)
[2020-05-24] MEDS: THIAMINE HCL 100 MG TABLET (FP) PO SCH (21:50)
[2020-05-24] MEDS: QUEtiapine FUMARATE 100 MG TABLET (FP) PO SCH (21:50)
[2020-05-24] MEDS: GABAPENTIN 300 MG CAPSULE PO SCH (21:50)
[2020-05-24] MEDS: MINERAL OIL/PETROLAT/WATER TOPICAL CREAM 113 GM JAR TP SCH (21:51)
[2020-05-24] MEDS: TOLNAFTATE 1% CREAM 15 GM TUBE TP SCH (21:51)
[2020-05-25] MEDS ORDERED: MASKS NR ONE (06:28)
[2020-05-25] MEDS: METHOCARBAMOL 500 MG TABLET PO PRN ×5 (06:29→21:27)
[2020-05-25] MEDS: hydrOXYzine PAMOATE 25 MG CAPSULE (FP) PO PRN ×5 (06:29→21:27)
[2020-05-25] MEDS: IBUPROFEN 400 MG TABLET (FP) PO PRN ×2 (06:30→14:33)
[2020-05-25] MEDS: NITROFURANTOIN MACROCRYSTAL 50 MG CAPSULE (FP) PO SCH ×5 (06:30→23:04)
[2020-05-25] MEDS: AMOX TR/POT CLAV 500MG/125MG TABLETS (FP) PO SCH ×2 (07:05→17:15)
[2020-05-25] MEDS: LIDOCAINE 5% TOPICAL PATCH TP SCH (09:33)
[2020-05-25] MEDS: GABAPENTIN 300 MG CAPSULE PO SCH ×2 (09:34→21:26)
[2020-05-25] MEDS: PRENATAL VITAMINS W/ FOLIC ACID TABLET (FP) PO SCH (09:34)
[2020-05-25] MEDS: PANTOPRAZOLE 40 MG TABLET PO SCH (09:34)
[2020-05-25] MEDS: QUEtiapine FUMARATE 50 MG TABLET PO SCH (09:35)
[2020-05-25] MEDS: NICOTINE 14 MG/24 HOURS TOPICAL PATCH TD SCH (09:35)
[2020-05-25] MEDS: TOLNAFTATE 1% CREAM 15 GM TUBE TP SCH ×2 (09:36→21:27)
[2020-05-25] MEDS ORDERED: PANTOPRAZOLE 20 MG TABLET PO SCH (10:00)
[2020-05-25] MEDS ORDERED: NICOTINE 21 MG/24 HOURS TOPICAL PATCH TD SCH (10:00)
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
[2020-05-25] MEDS ORDERED: PT OWN MED DRAWER 7, Y5N ONE ×5 (13:00→23:04)
[2020-05-25] MEDS: MINERAL OIL/PETROLAT/WATER TOPICAL CREAM 113 GM JAR TP SCH ×2 (13:03→21:27)
[2020-05-25] MEDS: LIDOCAINE PATCH REMOVAL TD SCH (21:26)
[2020-05-25] MEDS: MELATONIN 5 MG TABLETS PO SCH (21:26)
[2020-05-25] MEDS: THIAMINE HCL 100 MG TABLET (FP) PO SCH (21:26)
[2020-05-25] MEDS: QUEtiapine FUMARATE 100 MG TABLET (FP) PO SCH (21:26)
[2020-05-25] MEDS ORDERED: LIDOCAINE PATCH REMOVAL MC SCH (22:00)
[2020-05-26] MEDS ORDERED: PT OWN MED DRAWER 7, Y5N ONE ×4 (03:40→21:44)
[2020-05-26] MEDS: hydrOXYzine PAMOATE 25 MG CAPSULE (FP) PO PRN ×4 (06:03→21:42)
[2020-05-26] MEDS: IBUPROFEN 400 MG TABLET (FP) PO PRN ×2 (06:04→17:10)
[2020-05-26] MEDS: NITROFURANTOIN MACROCRYSTAL 50 MG CAPSULE (FP) PO SCH ×4 (06:04→23:41)
[2020-05-26] MEDS: METHOCARBAMOL 500 MG TABLET PO PRN ×5 (06:05→21:42)
[2020-05-26] MEDS: AMOX TR/POT CLAV 500MG/125MG TABLETS (FP) PO SCH ×2 (07:22→17:11)
[2020-05-26] MEDS: QUEtiapine FUMARATE 50 MG TABLET PO SCH (09:27)
[2020-05-26] MEDS: PANTOPRAZOLE 40 MG TABLET PO SCH (09:27)
[2020-05-26] MEDS: NICOTINE 14 MG/24 HOURS TOPICAL PATCH TD SCH (09:27)
[2020-05-26] MEDS: LIDOCAINE 5% TOPICAL PATCH TP SCH (09:27)
[2020-05-26] MEDS: SERTRALINE HCL 50 MG TABLET (FP) PO SCH (09:28)
[2020-05-26] MEDS: PRENATAL VITAMINS W/ FOLIC ACID TABLET (FP) PO SCH (09:28)
[2020-05-26] MEDS: TOLNAFTATE 1% CREAM 15 GM TUBE TP SCH ×2 (09:28→21:44)
[2020-05-26] MEDS: GABAPENTIN 300 MG CAPSULE PO SCH ×2 (09:28→21:40)
[2020-05-26] MEDS: MINERAL OIL/PETROLAT/WATER TOPICAL CREAM 113 GM JAR TP SCH ×2 (09:30→21:43)
[2020-05-26] MEDS: MELATONIN 5 MG TABLETS PO SCH (21:40)
[2020-05-26] MEDS: QUEtiapine FUMARATE 100 MG TABLET (FP) PO SCH (21:40)
[2020-05-26] MEDS: THIAMINE HCL 100 MG TABLET (FP) PO SCH (21:40)
[2020-05-26] MEDS: METHYL SALICYLATE/MENTHOL OINT 30 GM TUBE TP SCH (21:41)
[2020-05-26] MEDS: LIDOCAINE PATCH REMOVAL TD SCH (21:41)
[2020-05-27] MEDS: NITROFURANTOIN MACROCRYSTAL 50 MG CAPSULE (FP) PO SCH ×4 (06:17→23:00)
[2020-05-27] MEDS: METHOCARBAMOL 500 MG TABLET PO PRN ×4 (06:17→21:37)
[2020-05-27] MEDS: hydrOXYzine PAMOATE 25 MG CAPSULE (FP) PO PRN ×4 (06:17→21:37)
[2020-05-27] MEDS: IBUPROFEN 400 MG TABLET (FP) PO PRN (06:17)
[2020-05-27] MEDS: AMOX TR/POT CLAV 500MG/125MG TABLETS (FP) PO SCH ×2 (07:24→18:14)
[2020-05-27] MEDS ORDERED: PT OWN MED DRAWER 7, Y5N ONE ×2 (08:57→16:53)
[2020-05-27] MEDS: QUEtiapine FUMARATE 50 MG TABLET PO SCH (09:24)
[2020-05-27] MEDS: METHYL SALICYLATE/MENTHOL OINT 30 GM TUBE TP SCH ×2 (09:24→21:37)
[2020-05-27] MEDS: NICOTINE 14 MG/24 HOURS TOPICAL PATCH TD SCH (09:24)
[2020-05-27] MEDS: PRENATAL VITAMINS W/ FOLIC ACID TABLET (FP) PO SCH (09:25)
[2020-05-27] MEDS: SERTRALINE HCL 50 MG TABLET (FP) PO SCH (09:25)
[2020-05-27] MEDS: TOLNAFTATE 1% CREAM 15 GM TUBE TP SCH ×2 (09:25→21:38)
[2020-05-27] MEDS: LIDOCAINE 5% TOPICAL PATCH TP SCH (09:25)
[2020-05-27] MEDS: PANTOPRAZOLE 40 MG TABLET PO SCH (09:25)
[2020-05-27] MEDS: GABAPENTIN 300 MG CAPSULE PO SCH ×2 (09:25→21:37)
[2020-05-27] MEDS: MINERAL OIL/PETROLAT/WATER TOPICAL CREAM 113 GM JAR TP SCH ×2 (09:27→21:38)
[2020-05-27] MEDS: THIAMINE HCL 100 MG TABLET (FP) PO SCH (21:37)
[2020-05-27] MEDS: QUEtiapine FUMARATE 100 MG TABLET (FP) PO SCH (21:37)
[2020-05-27] MEDS: MELATONIN 5 MG TABLETS PO SCH (21:37)
[2020-05-27] MEDS: LIDOCAINE PATCH REMOVAL TD SCH (21:37)
[2020-05-28] MEDS: METHOCARBAMOL 500 MG TABLET PO PRN ×5 (06:04→22:40)
[2020-05-28] MEDS: IBUPROFEN 400 MG TABLET (FP) PO PRN ×2 (06:04→10:30)
[2020-05-28] MEDS: hydrOXYzine PAMOATE 25 MG CAPSULE (FP) PO PRN ×4 (06:04→22:40)
[2020-05-28] MEDS: NITROFURANTOIN MACROCRYSTAL 50 MG CAPSULE (FP) PO SCH ×3 (06:04→18:05)
[2020-05-28] MEDS: AMOX TR/POT CLAV 500MG/125MG TABLETS (FP) PO SCH ×2 (07:10→18:05)
[2020-05-28] MEDS ORDERED: PT OWN MED DRAWER 7, Y5N ONE (09:16)
[2020-05-28] MEDS ORDERED: BUPRENORPHINE/NALOXONE 8 MG/2 MG FILM PACKET SL SCH (10:15)
[2020-05-28] MEDS: NICOTINE 14 MG/24 HOURS TOPICAL PATCH TD SCH (10:29)
[2020-05-28] MEDS: QUEtiapine FUMARATE 50 MG TABLET PO SCH (10:29)
[2020-05-28] MEDS: PANTOPRAZOLE 40 MG TABLET PO SCH (10:29)
[2020-05-28] MEDS: GABAPENTIN 300 MG CAPSULE PO SCH ×2 (10:29→22:40)
[2020-05-28] MEDS: SERTRALINE HCL 50 MG TABLET (FP) PO SCH (10:30)
[2020-05-28] MEDS: LIDOCAINE 5% TOPICAL PATCH TP SCH (10:30)
[2020-05-28] MEDS: MINERAL OIL/PETROLAT/WATER TOPICAL CREAM 113 GM JAR TP SCH ×2 (10:30→22:41)
[2020-05-28] MEDS: PRENATAL VITAMINS W/ FOLIC ACID TABLET (FP) PO SCH (10:35)
[2020-05-28] MEDS: TOLNAFTATE 1% CREAM 15 GM TUBE TP SCH ×2 (10:35→22:39)
[2020-05-28] MEDS: METHYL SALICYLATE/MENTHOL OINT 30 GM TUBE TP SCH ×2 (10:35→22:41)
--- NOTE | 2020-05-28 11:55 | PN ---
BHS COWS - Scale Resting Pulse: 1= [place] 81-100 Sweatin= Chills/Flushing Restless Observation: 1= Difficult to Sit Still Pupil Size: 0= Normal to Room Light Bone or Joint Aches: 2= Severe Diffuse Aches Runny Nose/ Eye Tearin= None GI Upset > 30mins: 2= Nausea/Diarrhea Tremor Observation of Outstretched Hands: 0= None Yawning Observation: 0= None Anxiety or Irritability: 2=Irritable/Anxious Goose Flesh Skin: 0=Smooth Skin COWS Score: 9 BHS Progress Note (SOAP) Subjective: Patient seen for protracted withdrawal symptoms. Patient is well known to facility due to multiple admissions. She has long hx of opiod use and states she was sniffing 10 bags of heroin laced with fentanyl daily. [facility] and would like to restart suboxone. Patient referred to counselor for connection to [facility]. Others' Prescriptions Patient Name: Leydi Tolbert Date: 1970 Address: [address] [place] [address] Sex: Female Rx Written Rx Dispensed Drug Quantity Days Supply Prescriber Name Payment Method Dispenser 01/09/2020 01/09/2020 buprenorphine-naloxone 8-2 mg sl film 2 1 Donna Burns SCIENTOLOGIST [facility] Patient Name: Leydi Tolbert Date: 1970 Address: [address] [place] [address] Sex: Female Rx Written Rx Dispensed Drug Quantity Days Supply Prescriber Name Payment Method Dispenser 08/15/2019 08/15/2019 buprenorphine-naloxone 8-2 mg sl film 14 7 Madhavi Ortiz SCIENTOLOGIST [facility] Objective: 05/28/20 11:58 Vital Signs Temperature 97.3 F L 05/28/20 07:11 Pulse Rate 85 05/28/20 07:11 Respiratory Rate 18 05/28/20 07:11 Blood Pressure 143/84 05/28/20 07:11 O2 Sat by Pulse Oximetry (%) 99 05/28/20 07:11 PE alert and oriented x 3 skin warm, dry +perrla, eoms intact bl neck supple, no jvd gi, soft, nt, + LBM reported x 3 ext full rom, amb ad sushila, + body aches anxious/irritable with peers at times pacing in dobbins Assessment: 05/28/20 12:00 Protracted withdrawal suboxone mat opiod dependence Plan: Patient connected to [facility] Due reported increase use of Heroin and high tolerance of opiates, patient started on suboxone 8mg sl bid, first dose now. continue group meetings and rehab monitor clinically
[2020-05-28] MEDS: BUPRENORPHINE/NALOXONE 8 MG/2 MG FILM PACKET SL SCH (19:52)
[2020-05-28] MEDS: THIAMINE HCL 100 MG TABLET (FP) PO SCH (22:40)
[2020-05-28] MEDS: QUEtiapine FUMARATE 100 MG TABLET (FP) PO SCH (22:40)
[2020-05-28] MEDS: MELATONIN 5 MG TABLETS PO SCH (22:40)
[2020-05-28] MEDS: LIDOCAINE PATCH REMOVAL TD SCH (22:42)
[2020-05-29] MEDS: IBUPROFEN 400 MG TABLET (FP) PO PRN ×3 (06:25→18:00)
[2020-05-29] MEDS: hydrOXYzine PAMOATE 25 MG CAPSULE (FP) PO PRN ×3 (06:25→18:00)
[2020-05-29] MEDS: METHOCARBAMOL 500 MG TABLET PO PRN ×4 (06:26→21:26)
[2020-05-29] MEDS: NITROFURANTOIN MACROCRYSTAL 50 MG CAPSULE (FP) PO SCH ×4 (06:26→23:09)
[2020-05-29] MEDS: AMOX TR/POT CLAV 500MG/125MG TABLETS (FP) PO SCH ×2 (07:22→18:01)
[2020-05-29] MEDS: BUPRENORPHINE/NALOXONE 8 MG/2 MG FILM PACKET SL SCH ×2 (10:00→19:38)
[2020-05-29] MEDS: TOLNAFTATE 1% CREAM 15 GM TUBE TP SCH ×2 (10:00→21:27)
[2020-05-29] MEDS: MINERAL OIL/PETROLAT/WATER TOPICAL CREAM 113 GM JAR TP SCH ×2 (10:01→21:27)
[2020-05-29] MEDS: LIDOCAINE 5% TOPICAL PATCH TP SCH (10:01)
[2020-05-29] MEDS: PRENATAL VITAMINS W/ FOLIC ACID TABLET (FP) PO SCH (10:01)
[2020-05-29] MEDS: GABAPENTIN 300 MG CAPSULE PO SCH ×2 (10:01→21:26)
[2020-05-29] MEDS: NICOTINE 14 MG/24 HOURS TOPICAL PATCH TD SCH (10:02)
[2020-05-29] MEDS: METHYL SALICYLATE/MENTHOL OINT 30 GM TUBE TP SCH ×2 (10:02→21:27)
[2020-05-29] MEDS: PANTOPRAZOLE 40 MG TABLET PO SCH (10:02)
[2020-05-29] MEDS: SERTRALINE HCL 50 MG TABLET (FP) PO SCH (10:02)
[2020-05-29] MEDS: QUEtiapine FUMARATE 50 MG TABLET PO SCH (10:03)
[2020-05-29] MEDS: QUEtiapine FUMARATE 100 MG TABLET (FP) PO SCH (21:26)
[2020-05-29] MEDS: MELATONIN 5 MG TABLETS PO SCH (21:26)
[2020-05-29] MEDS: LIDOCAINE PATCH REMOVAL TD SCH (21:26)
[2020-05-29] MEDS: THIAMINE HCL 100 MG TABLET (FP) PO SCH (21:26)
[2020-05-30] MEDS: NITROFURANTOIN MACROCRYSTAL 50 MG CAPSULE (FP) PO SCH ×2 (06:00→15:28)
[2020-05-30] MEDS: IBUPROFEN 400 MG TABLET (FP) PO PRN (06:39)
[2020-05-30] MEDS: AMOX TR/POT CLAV 500MG/125MG TABLETS (FP) PO SCH (07:51)
[2020-05-30] MEDS: PANTOPRAZOLE 40 MG TABLET PO SCH (09:33)
[2020-05-30] MEDS: SERTRALINE HCL 50 MG TABLET (FP) PO SCH (09:33)
[2020-05-30] MEDS: PRENATAL VITAMINS W/ FOLIC ACID TABLET (FP) PO SCH (09:33)
[2020-05-30] MEDS: GABAPENTIN 300 MG CAPSULE PO SCH ×2 (09:33→21:05)
[2020-05-30] MEDS: BUPRENORPHINE/NALOXONE 8 MG/2 MG FILM PACKET SL SCH ×2 (09:33→21:06)
[2020-05-30] MEDS: MINERAL OIL/PETROLAT/WATER TOPICAL CREAM 113 GM JAR TP SCH ×2 (09:34→21:07)
[2020-05-30] MEDS: METHYL SALICYLATE/MENTHOL OINT 30 GM TUBE TP SCH ×2 (09:34→21:07)
[2020-05-30] MEDS: NICOTINE 14 MG/24 HOURS TOPICAL PATCH TD SCH (09:34)
[2020-05-30] MEDS: QUEtiapine FUMARATE 50 MG TABLET PO SCH (09:35)
[2020-05-30] MEDS: TOLNAFTATE 1% CREAM 15 GM TUBE TP SCH ×2 (09:36→21:08)
[2020-05-30] MEDS: hydrOXYzine PAMOATE 25 MG CAPSULE (FP) PO PRN ×2 (09:38→21:05)
[2020-05-30] MEDS: METHOCARBAMOL 500 MG TABLET PO PRN ×2 (09:38→21:06)
[2020-05-30] MEDS: LIDOCAINE 5% TOPICAL PATCH TP SCH (11:57)
[2020-05-30] MEDS: QUEtiapine FUMARATE 100 MG TABLET (FP) PO SCH (21:05)
[2020-05-30] MEDS: MELATONIN 5 MG TABLETS PO SCH (21:05)
[2020-05-30] MEDS: LIDOCAINE PATCH REMOVAL TD SCH (21:05)
[2020-05-30] MEDS: THIAMINE HCL 100 MG TABLET (FP) PO SCH (21:05)
[2020-05-31] MEDS: NITROFURANTOIN MACROCRYSTAL 50 MG CAPSULE (FP) PO SCH (00:20)
[2020-05-31] MEDS: hydrOXYzine PAMOATE 25 MG CAPSULE (FP) PO PRN ×3 (06:01→21:33)
[2020-05-31] MEDS: IBUPROFEN 400 MG TABLET (FP) PO PRN ×2 (06:01→21:35)
[2020-05-31] MEDS: METHOCARBAMOL 500 MG TABLET PO PRN ×3 (06:01→21:35)
[2020-05-31] MEDS: PRENATAL VITAMINS W/ FOLIC ACID TABLET (FP) PO SCH (10:14)
[2020-05-31] MEDS: BUPRENORPHINE/NALOXONE 8 MG/2 MG FILM PACKET SL SCH ×2 (10:14→19:39)
[2020-05-31] MEDS: SERTRALINE HCL 50 MG TABLET (FP) PO SCH (10:15)
[2020-05-31] MEDS: PANTOPRAZOLE 40 MG TABLET PO SCH (10:15)
[2020-05-31] MEDS: GABAPENTIN 300 MG CAPSULE PO SCH ×2 (10:16→21:33)
[2020-05-31] MEDS: LIDOCAINE 5% TOPICAL PATCH TP SCH (10:16)
[2020-05-31] MEDS: MINERAL OIL/PETROLAT/WATER TOPICAL CREAM 113 GM JAR TP SCH ×2 (10:16→21:36)
[2020-05-31] MEDS: METHYL SALICYLATE/MENTHOL OINT 30 GM TUBE TP SCH ×2 (10:17→21:36)
[2020-05-31] MEDS: NICOTINE 14 MG/24 HOURS TOPICAL PATCH TD SCH (10:17)
[2020-05-31] MEDS: QUEtiapine FUMARATE 50 MG TABLET PO SCH (10:17)
[2020-05-31] MEDS: TOLNAFTATE 1% CREAM 15 GM TUBE TP SCH ×2 (10:17→21:36)
[2020-05-31] MEDS ORDERED: PT OWN MED DRAWER 7, Y5N ONE (10:51)
[2020-05-31] MEDS: QUEtiapine FUMARATE 100 MG TABLET (FP) PO SCH (21:33)
[2020-05-31] MEDS: THIAMINE HCL 100 MG TABLET (FP) PO SCH (21:33)
[2020-05-31] MEDS: LIDOCAINE PATCH REMOVAL TD SCH (21:33)
[2020-05-31] MEDS: MELATONIN 5 MG TABLETS PO SCH (21:33)
[2020-06-01] MEDS: METHOCARBAMOL 500 MG TABLET PO PRN (07:00)
[2020-06-01] MEDS: hydrOXYzine PAMOATE 25 MG CAPSULE (FP) PO PRN (07:00)
[2020-06-01] MEDS: IBUPROFEN 400 MG TABLET (FP) PO PRN (07:00)
--- NOTE | 2020-06-01 07:10 | PN ---
[facility] Progress Note Note: Patient is scheduled for discharge today. Scripts for 30 days supply of medications(Zoloft 50 mg/day, Seroquel 50 mg/day v& 100 mg/hs) are electronically transmitted to [facility], [facility] [place] [address]
[2020-06-01 07:27] VITALS: BP 129/77; PULSE 68; TEMP 97.5
--- NOTE | 2020-06-01 08:48 | DS ---
[facility] Rehab Discharge Summary - [facility] Rehab Discharge Summary Admission Date: 05/24/20 Discharge Date: 06/01/20 - History Present History: Alcohol dependence, Cannabis dependence, Opioid dependence Pertinent Past History: Asthma GERD LBP HX Carcinoma Uterine Cervix Osteoarthritis of both knees Hep c HTN Anemia Lap Cholecystectomy Mood Disorder - Discharge Physical Exam Vital Signs: Vital Signs Temperature 97.5 F L 06/01/20 06:56 Pulse Rate 68 06/01/20 06:56 Respiratory Rate 16 06/01/20 06:56 Blood Pressure 129/77 06/01/20 06:56 O2 Sat by Pulse Oximetry (%) 99 06/01/20 06:56 alert o x 3 nad oob ambulating with steady gait cardiac:s1 s2,rrr lungs:ctab extremities:no edema, skin intact - Treatment Discharge Condition: Discharge condition good Hospital Course: Pt was referred to rehab from detox and completed rehab, scheduled to discharge today. CD aftercare referral accepted at [facility] responded well rehabilitated safely - Medication Discharge Medications: Ambulatory Orders Methocarbamol [Robaxin -] 500 mg PO BID 12/14/19 Omeprazole 40 mg PO DAILY 12/14/19 Colloidal Oatmeal [Aveeno Soap -] 1 applic TP PRN PRN 02/08/20 Albuterol Sulfate Inhaler - [Ventolin HFA Inhaler -] 2 inh PO Q4H PRN #1 inhaler 05/31/20 Buprenorphine/Naloxone [Suboxone 8Mg/2Mg Sl Film -] 1 each SL BID #14 packet MDD 2 05/31/20 Gabapentin 300 mg PO BID #14 cap 05/31/20 Mineral Oil/Petrolat,Wht/Water [Eucerin (Large Jar) -] 1 applic TP BID #1 jar 05/31/20 Quetiapine Fumarate [Seroquel -] 50 mg PO DAILY #30 tablet 06/01/20 Quetiapine Fumarate [Seroquel -] 100 mg PO HS #30 tablet 06/01/20 Sertraline HCl [Zoloft -] 50 mg PO DAILY #30 tablet 06/01/20 - Medication-Assisted Treatment (MAT) Medication-Assisted Treatment (MAT): Yes Medication Prescribed: Suboxone MAT Follow-up Referral: [place] [id number] [address] [place] - Discharge Instructions Diet, activity, other medical instructions: Diet: Activity: Other medical instructions: - Diagnosis (1) Alcohol use disorder Status: Chronic (2) Asthma Status: Chronic Qualifiers: Asthma severity: mild Asthma persistence: intermittent Asthma complication type: unspecified Qualified Code(s): J45.20 - Mild intermittent asthma, uncomplicated (3) Cannabis dependence Status: Chronic (4) Cocaine dependence Status: Chronic Qualifiers: Substance use status: uncomplicated Qualified Code(s): F14.20 - Cocaine dependence, uncomplicated (5) GERD (gastroesophageal reflux disease) Status: Chronic Qualifiers: Esophagitis presence: without esophagitis Qualified Code(s): K21.9 - Gastro-esophageal reflux disease without esophagitis (6) HTN (hypertension) Status: Chronic Qualifiers: Hypertension type: essential hypertension Qualified Code(s): I10 - Essential (primary) hypertension (7) Low back pain Status: Chronic Qualifiers: Chronicity: chronic Back pain laterality: bilateral Sciatica presence: with sciatica (8) Nicotine dependence Status: Chronic Qualifiers: Nicotine product type: cigarettes Substance use status: uncomplicated Qualified Code(s): F17.210 - Nicotine dependence, cigarettes, uncomplicated (9) Opioid use disorder Status: Chronic (10) Osteoarthritis of both knees Status: Chronic Qualifiers: Osteoarthritis type: primary Qualified Code(s): M17.0 - Bilateral primary osteoarthritis of knee - Follow-up Referral Minutes to complete discharge: 20 - AMA Did Patient Leave Against Medical Advice: No Additional Comments: Rx for Suboxone 8mg/2mg electronically sent to pt's [facility] pharmacy, [place], [place]
[2020-06-01] MEDS: BUPRENORPHINE/NALOXONE 8 MG/2 MG FILM PACKET SL SCH (09:10)
[2020-06-01] MEDS: SERTRALINE HCL 50 MG TABLET (FP) PO SCH (09:10)
[2020-06-01] MEDS: PANTOPRAZOLE 40 MG TABLET PO SCH (09:10)
[2020-06-01] MEDS: LIDOCAINE 5% TOPICAL PATCH TP SCH (09:11)
[2020-06-01] MEDS: GABAPENTIN 300 MG CAPSULE PO SCH (09:11)
[2020-06-01] MEDS: QUEtiapine FUMARATE 50 MG TABLET PO SCH (09:11)
[2020-06-01] MEDS: PRENATAL VITAMINS W/ FOLIC ACID TABLET (FP) PO SCH (09:11)
[2020-06-01] MEDS: NICOTINE 14 MG/24 HOURS TOPICAL PATCH TD SCH (09:12)
[2020-06-01] MEDS: METHYL SALICYLATE/MENTHOL OINT 30 GM TUBE TP SCH (09:12)
[2020-06-01] MEDS: MINERAL OIL/PETROLAT/WATER TOPICAL CREAM 113 GM JAR TP SCH (09:12)
== END 2020-06-01 09:40 | disposition home or self-care (01) | DRG 772 ==
LOC: YASAS 12:33 → Y3W 12:34
PROVIDERS: ADMIT Allergy & Immunology; ATTEND Allergy & Immunology
PROC: HZ42ZZZ Group Counseling for Substance Abuse Treatment, Cognitive-Behavioral (ICD-10-PCS; principal; 2020-05-24)
DX: F10.20 Alcohol dependence, uncomplicated (principal); F11.20 Opioid dependence, uncomplicated; F14.20 Cocaine dependence, uncomplicated; F17.210 Nicotine dependence, cigarettes, uncomplicated; F19.282 Other psychoactive substance dependence with psychoactive substance-induced sleep disorder; F19.24 Other psychoactive substance dependence with psychoactive substance-induced mood disorder; F31.9 Bipolar disorder, unspecified; D64.9 Anemia, unspecified; I10 Essential (primary) hypertension; K21.9 Gastro-esophageal reflux disease without esophagitis; M17.0 Bilateral primary osteoarthritis of knee; M54.5 Low back pain; B18.2 Chronic viral hepatitis C; Z62.810 Personal history of physical and sexual abuse in childhood; Z91.410 Personal history of adult physical and sexual abuse; Z85.41 Personal history of malignant neoplasm of cervix uteri; Z90.49 Acquired absence of other specified parts of digestive tract; Z88.8 Allergy status to other drugs, medicaments and biological substances; Z59.0 Homelessness

== ENCOUNTER 2021-04-17 10:41 | Inpatient (IN) | payer OTHER ==
[2021-04-17] MEDS ORDERED: ACETAMINOPHEN 325 MG TABLET (FP) ONE (11:40)
[2021-04-17] MEDS ORDERED: TRIMETHOBENZAMIDE HCL 200MG/2ML INJ IM ONE ×2 (11:40→11:49)
[2021-04-17 11:45] VITALS: BMI 35.9
[2021-04-17] MEDS ORDERED: ACETAMINOPHEN 325 MG TABLET (FP) PO PRN (11:46)
[2021-04-17] MEDS ORDERED: BISMUTH SUBSALICYLATE 262 MG/15 ML BTL PO PRN (11:46)
[2021-04-17] MEDS ORDERED: cloNIDine HCL 0.1 MG TABLET PO PRN (11:46)
[2021-04-17] MEDS ORDERED: MAGNESIUM HYDROX 2400MG/30ML ORAL SUSPENSION 30 ML CUP PO PRN (11:46)
[2021-04-17] MEDS ORDERED: MENTHOL/PHENOL 1 EACH UD MM PRN (11:46)
[2021-04-17] MEDS ORDERED: NICOTINE POLACRILEX 2 MG GUM BUC PRN (11:46)
[2021-04-17] MEDS ORDERED: METHADONE HCL 10 MG TABLET (FOR DETOX USE ONLY) PO ONE (11:46)
[2021-04-17] MEDS ORDERED: ONDANSETRON *ODT* 4 MG TABLET SL PRN (11:46)
[2021-04-17] MEDS ORDERED: MAGNESIUM CITRATE 300 ML BOTTLE PO PRN (11:46)
[2021-04-17] MEDS: ACETAMINOPHEN 325 MG TABLET (FP) PO PRN (12:18)
[2021-04-17] MEDS: hydrOXYzine PAMOATE 25 MG CAPSULE (FP) PO SCH ×3 (13:02→22:00)
[2021-04-17] MEDS: METHOCARBAMOL 500 MG TABLET PO PRN (13:02)
[2021-04-17] MEDS: NICOTINE 21 MG/24 HOURS TOPICAL PATCH TD SCH (13:06)
[2021-04-17] MEDS: MAG HYDROX/AL HYDROX/SIMETH 30 ML UNIT-DOSE CUP PO PRN (13:07)
[2021-04-17] MEDS ORDERED: ALBUTEROL SO4 HFA INHALER IH PRN (15:54)
[2021-04-17] MEDS: IBUPROFEN 400 MG TABLET (FP) PO PRN (17:14)
[2021-04-17 19:53] LABS: HEMATOCRIT 39.1 % (32.4-45.2); HEMOGLOBIN 12.7 GM/dL (10.7-15.3); MCH 28.8 pg (25.7-33.7); MCHC 32.4 g/dl (32.0-36.0); MEAN CELL VOLUME 88.8 fl (80-96); MEAN PLT VOLUME 10.4 fl (7.5-11.1); PLATELET COUNT 275 K/MM3 (134-434); RDW 14.5 % (11.6-15.6); WHITE BLOOD COUNT 14.4 K/mm3 (4.0-10.0)
[2021-04-17 19:56] LABS: CALCIUM 9.5 mg/dL (8.5-10.1)
[2021-04-17 19:57] LABS: ALBUMIN 4.7 g/dl (3.4-5.0); BLOOD UREA NITROGEN 21.6 mg/dL (7-18)
[2021-04-17 20:00] LABS: CREATININE 0.9 mg/dL (0.55-1.3)
[2021-04-17 20:01] LABS: BILIRUBIN,TOTAL 0.5 mg/dL (0.2-1)
[2021-04-17 20:02] LABS: TOT PROT 8.7 g/dl (6.4-8.2)
[2021-04-17 20:34] LABS: HIV INTERPRETATION NEGATIVE (NEGATIVE)
[2021-04-17] MEDS ORDERED: METHYL SALICYLATE/MENTHOL OINT 30 GM TUBE TP PRN (21:19)
[2021-04-17] MEDS: valACYclovir HCL 500 MG TABLET (FP) PO SCH (21:59)
[2021-04-17] MEDS: QUEtiapine FUMARATE 100 MG TABLET (FP) PO SCH (22:02)
[2021-04-17] MEDS: THIAMINE HCL 100 MG TABLET (FP) PO SCH (22:02)
[2021-04-17] MEDS: MELATONIN 5 MG TABLETS PO SCH (22:02)
[2021-04-17] MEDS: CLOTRIMAZOLE 1% CREAM 15 GM TUBE TP SCH (23:15)
[2021-04-18] MEDS: IBUPROFEN 400 MG TABLET (FP) PO PRN ×2 (02:09→14:56)
[2021-04-18] MEDS: METHOCARBAMOL 500 MG TABLET PO PRN (02:09)
[2021-04-18] MEDS: hydrOXYzine PAMOATE 25 MG CAPSULE (FP) PO SCH ×5 (05:49→22:20)
[2021-04-18] MEDS: ACETAMINOPHEN 325 MG TABLET (FP) PO PRN ×2 (05:51→22:07)
[2021-04-18] MEDS: MAG HYDROX/AL HYDROX/SIMETH 30 ML UNIT-DOSE CUP PO PRN ×2 (06:48→11:54)
[2021-04-18] MEDS ORDERED: METHADONE HCL 5 MG TABLET (FOR DETOX USE ONLY) ONE (09:36)
[2021-04-18] MEDS ORDERED: METHADONE HCL 10 MG TABLET (FOR DETOX USE ONLY) ONE (09:36)
[2021-04-18] MEDS ORDERED: LIDOCAINE VISCOUS 2% ORAL/TOP 20 ML UNIT-DOSE CUP MM PRN (09:57)
[2021-04-18] MEDS: CLOTRIMAZOLE 1% CREAM 15 GM TUBE TP SCH ×2 (09:59→22:20)
[2021-04-18] MEDS: PRENATAL VITAMINS W/ FOLIC ACID TABLET (FP) PO SCH (09:59)
[2021-04-18] MEDS: valACYclovir HCL 500 MG TABLET (FP) PO SCH ×2 (09:59→22:07)
[2021-04-18] MEDS: NICOTINE 21 MG/24 HOURS TOPICAL PATCH TD SCH (09:59)
[2021-04-18] MEDS ORDERED: METHADONE (DETOX) 20 MG, METHADONE (DETOX) 5 MG PO ONE (10:00)
[2021-04-18] MEDS: MINERAL OIL/PETROLAT/WATER TOPICAL CREAM 113 GM JAR TP SCH ×2 (10:51→22:20)
[2021-04-18] MEDS: AMOXICILLIN 500 MG CAPSULE (FP) PO SCH ×2 (10:51→22:07)
[2021-04-18] MEDS: QUEtiapine FUMARATE 100 MG TABLET (FP) PO SCH (22:07)
[2021-04-18] MEDS: MELATONIN 5 MG TABLETS PO SCH (22:20)
[2021-04-18] MEDS: THIAMINE HCL 100 MG TABLET (FP) PO SCH (22:21)
[2021-04-19] MEDS: IBUPROFEN 400 MG TABLET (FP) PO PRN ×2 (05:21→18:30)
[2021-04-19] MEDS: hydrOXYzine PAMOATE 25 MG CAPSULE (FP) PO SCH ×5 (05:22→22:28)
[2021-04-19] MEDS ORDERED: COVID-19 VAC,AD26(JANSSEN)/PF 0.5 ML IM ONE (09:00)
[2021-04-19] MEDS ORDERED: METHADONE HCL 10 MG TABLET (FOR DETOX USE ONLY) PO ONE (10:00)
[2021-04-19] MEDS: valACYclovir HCL 500 MG TABLET (FP) PO SCH (10:07)
[2021-04-19] MEDS: AMOXICILLIN 500 MG CAPSULE (FP) PO SCH ×2 (10:07→22:28)
[2021-04-19] MEDS: CLOTRIMAZOLE 1% CREAM 15 GM TUBE TP SCH ×2 (10:08→22:30)
[2021-04-19] MEDS: PRENATAL VITAMINS W/ FOLIC ACID TABLET (FP) PO SCH (10:08)
[2021-04-19] MEDS: METHOCARBAMOL 500 MG TABLET PO PRN (10:12)
[2021-04-19] MEDS: NICOTINE 21 MG/24 HOURS TOPICAL PATCH TD SCH (10:17)
[2021-04-19] MEDS: MINERAL OIL/PETROLAT/WATER TOPICAL CREAM 113 GM JAR TP SCH ×2 (10:17→22:30)
[2021-04-19] MEDS ORDERED: LIDOCAINE 5% TOPICAL PATCH TP ONE (10:39)
[2021-04-19] MEDS: ACETAMINOPHEN 325 MG TABLET (FP) PO PRN (10:47)
[2021-04-19] MEDS: QUEtiapine FUMARATE 100 MG TABLET (FP) PO SCH (22:28)
[2021-04-19] MEDS: MELATONIN 5 MG TABLETS PO SCH (22:28)
[2021-04-19] MEDS: THIAMINE HCL 100 MG TABLET (FP) PO SCH (22:29)
[2021-04-19] MEDS: LIDOCAINE PATCH REMOVAL MC SCH (22:30)
[2021-04-20] MEDS: METHOCARBAMOL 500 MG TABLET PO PRN ×4 (00:59→22:21)
[2021-04-20] MEDS: ACETAMINOPHEN 325 MG TABLET (FP) PO PRN ×2 (00:59→10:32)
[2021-04-20] MEDS: IBUPROFEN 400 MG TABLET (FP) PO PRN ×3 (06:06→17:54)
[2021-04-20] MEDS: hydrOXYzine PAMOATE 25 MG CAPSULE (FP) PO SCH ×5 (06:06→22:19)
[2021-04-20 06:07] LABS: SARS-CoV-2 NAA Not Detected (Not Detected)
[2021-04-20] MEDS ORDERED: METHADONE HCL 10 MG TABLET (FOR DETOX USE ONLY) ONE (09:52)
[2021-04-20] MEDS ORDERED: METHADONE HCL 5 MG TABLET (FOR DETOX USE ONLY) ONE (09:52)
[2021-04-20] MEDS ORDERED: METHADONE (DETOX) 10 MG, METHADONE (DETOX) 5 MG PO ONE (10:00)
[2021-04-20] MEDS: PRENATAL VITAMINS W/ FOLIC ACID TABLET (FP) PO SCH (10:29)
[2021-04-20] MEDS: AMOXICILLIN 500 MG CAPSULE (FP) PO SCH ×2 (10:29→22:19)
[2021-04-20] MEDS: CLOTRIMAZOLE 1% CREAM 15 GM TUBE TP SCH ×2 (10:30→22:20)
[2021-04-20] MEDS: MINERAL OIL/PETROLAT/WATER TOPICAL CREAM 113 GM JAR TP SCH ×2 (10:31→22:20)
[2021-04-20] MEDS: NICOTINE 21 MG/24 HOURS TOPICAL PATCH TD SCH (11:35)
[2021-04-20] MEDS: THIAMINE HCL 100 MG TABLET (FP) PO SCH (22:19)
[2021-04-20] MEDS: MELATONIN 5 MG TABLETS PO SCH (22:19)
[2021-04-20] MEDS: QUEtiapine FUMARATE 100 MG TABLET (FP) PO SCH (22:19)
[2021-04-20] MEDS: LIDOCAINE PATCH REMOVAL MC SCH (22:20)
[2021-04-21] MEDS: hydrOXYzine PAMOATE 25 MG CAPSULE (FP) PO SCH ×5 (05:56→22:48)
[2021-04-21] MEDS: METHOCARBAMOL 500 MG TABLET PO PRN ×2 (05:56→20:38)
[2021-04-21] MEDS: IBUPROFEN 400 MG TABLET (FP) PO PRN ×2 (05:57→20:38)
[2021-04-21] MEDS ORDERED: METHADONE HCL 10 MG TABLET (FOR DETOX USE ONLY) PO ONE (10:00)
[2021-04-21] MEDS: AMOXICILLIN 500 MG CAPSULE (FP) PO SCH ×2 (10:02→22:18)
[2021-04-21] MEDS: PRENATAL VITAMINS W/ FOLIC ACID TABLET (FP) PO SCH (10:02)
[2021-04-21] MEDS: MINERAL OIL/PETROLAT/WATER TOPICAL CREAM 113 GM JAR TP SCH ×2 (10:03→22:20)
[2021-04-21] MEDS: CLOTRIMAZOLE 1% CREAM 15 GM TUBE TP SCH ×2 (10:04→22:22)
[2021-04-21] MEDS: NICOTINE 21 MG/24 HOURS TOPICAL PATCH TD SCH (10:04)
[2021-04-21] MEDS: ACETAMINOPHEN 325 MG TABLET (FP) PO PRN (10:06)
[2021-04-21] MEDS: QUEtiapine FUMARATE 100 MG TABLET (FP) PO SCH (22:18)
[2021-04-21] MEDS: THIAMINE HCL 100 MG TABLET (FP) PO SCH (22:18)
[2021-04-21] MEDS: MELATONIN 5 MG TABLETS PO SCH (22:18)
[2021-04-21] MEDS: LIDOCAINE PATCH REMOVAL MC SCH (22:19)
[2021-04-22] MEDS: ACETAMINOPHEN 325 MG TABLET (FP) PO PRN (04:36)
[2021-04-22] MEDS: hydrOXYzine PAMOATE 25 MG CAPSULE (FP) PO SCH (06:00)
[2021-04-22] MEDS ORDERED: METHADONE HCL 5 MG TABLET (FOR DETOX USE ONLY) PO ONE (06:00)
[2021-04-22] MEDS: METHOCARBAMOL 500 MG TABLET PO PRN (06:01)
[2021-04-22] MEDS ORDERED: MASKS NR ONE (07:27)
[2021-04-22 09:53] VITALS: BP 131/69; PULSE 59; TEMP 98.1
== END 2021-04-22 10:32 | disposition home or self-care (01) | DRG 773 ==
LOC: YASAS 10:41 → Y6N 12:04
PROVIDERS: ADMIT Allergy & Immunology; ATTEND Allergy & Immunology
PROC: HZ2ZZZZ Detoxification Services for Substance Abuse Treatment (ICD-10-PCS; principal; 2021-04-17)
DX: F11.23 Opioid dependence with withdrawal (principal); F14.20 Cocaine dependence, uncomplicated; F12.20 Cannabis dependence, uncomplicated; F17.210 Nicotine dependence, cigarettes, uncomplicated; F19.282 Other psychoactive substance dependence with psychoactive substance-induced sleep disorder; F19.24 Other psychoactive substance dependence with psychoactive substance-induced mood disorder; F31.9 Bipolar disorder, unspecified; B00.1 Herpesviral vesicular dermatitis; D72.829 Elevated white blood cell count, unspecified; D64.9 Anemia, unspecified; I10 Essential (primary) hypertension; J45.20 Mild intermittent asthma, uncomplicated; K21.9 Gastro-esophageal reflux disease without esophagitis; M17.0 Bilateral primary osteoarthritis of knee; M54.5 Low back pain; M54.30 Sciatica, unspecified side; G89.29 Other chronic pain; R26.89 Other abnormalities of gait and mobility; Z62.810 Personal history of physical and sexual abuse in childhood; Z91.410 Personal history of adult physical and sexual abuse
CPT/HCPCS: 0031A; 36415; 80053; 81025; 82947; 85027; 86780; 87389; 91303; 93005; 93010; C9803; Q0162; U0003; U0005

== ENCOUNTER 2021-05-20 17:42 | Inpatient (IN) | payer OTHER ==
[2021-05-20 18:26] VITALS: BMI 34.8
[2021-05-20] MEDS ORDERED: ACETAMINOPHEN 325 MG TABLET (FP) PO PRN (19:12)
[2021-05-20] MEDS ORDERED: BISMUTH SUBSALICYLATE 524 MG/30 ML PO PRN (19:12)
[2021-05-20] MEDS ORDERED: MENTHOL/PHENOL 1 EACH UD MM PRN (19:12)
[2021-05-20] MEDS ORDERED: MAG HYDROX/AL HYDROX/SIMETH 30 ML UNIT-DOSE CUP PO PRN (19:12)
[2021-05-20] MEDS ORDERED: MAGNESIUM HYDROX 2400MG/30ML ORAL SUSPENSION 30 ML CUP PO PRN (19:12)
[2021-05-20] MEDS ORDERED: MAGNESIUM CITRATE 300 ML BOTTLE PO PRN (19:12)
[2021-05-20] MEDS ORDERED: ONDANSETRON *ODT* 4 MG TABLET SL PRN (19:12)
[2021-05-20] MEDS ORDERED: ALBUTEROL SO4 HFA INHALER IH PRN (19:14)
[2021-05-20] MEDS ORDERED: METHADONE HCL 10 MG TABLET (FOR DETOX USE ONLY) PO ONE (19:14)
[2021-05-20] MEDS ORDERED: cloNIDine HCL 0.1 MG TABLET PO PRN (19:14)
[2021-05-20] MEDS ORDERED: BENZOCAINE 20 % GEL TUBE MM PRN (19:21)
[2021-05-20] MEDS: METHOCARBAMOL 500 MG TABLET PO PRN (21:02)
[2021-05-20] MEDS: THIAMINE HCL 100 MG TABLET (FP) PO SCH (21:02)
[2021-05-20] MEDS: IBUPROFEN 400 MG TABLET (FP) PO PRN (21:02)
[2021-05-20] MEDS: AMOXICILLIN 500 MG CAPSULE (FP) PO SCH (21:02)
[2021-05-20] MEDS: MELATONIN 5 MG TABLETS PO SCH (21:06)
[2021-05-20] MEDS: BACITRACIN 0.9 GM PACKET TP SCH (21:06)
[2021-05-21] MEDS: hydrOXYzine PAMOATE 25 MG CAPSULE (FP) PO PRN ×3 (06:17→19:11)
[2021-05-21] MEDS: METHOCARBAMOL 500 MG TABLET PO PRN ×2 (06:18→19:11)
[2021-05-21] MEDS ORDERED: METHADONE HCL 10 MG TABLET (FOR DETOX USE ONLY) ONE (09:23)
[2021-05-21] MEDS ORDERED: METHADONE HCL 5 MG TABLET (FOR DETOX USE ONLY) ONE (09:23)
[2021-05-21] MEDS ORDERED: METHADONE (DETOX) 20 MG, METHADONE (DETOX) 5 MG PO ONE (10:00)
[2021-05-21 10:35] LABS: HEMATOCRIT 37.4 % (32.4-45.2); MCH 28.3 pg (25.7-33.7); MCHC 32.2 g/dl (32.0-36.0); MEAN CELL VOLUME 87.9 fl (80-96); MEAN PLT VOLUME 8.9 fl (7.5-11.1); PLATELET COUNT 351 10^3/uL (134-434); RBC 4.26 M/mm3 (3.60-5.2); WHITE BLOOD COUNT 6.3 K/mm3 (4.0-10.0)
[2021-05-21] MEDS: PRENATAL VITAMINS W/ FOLIC ACID TABLET (FP) PO SCH (10:56)
[2021-05-21] MEDS: AMOXICILLIN 500 MG CAPSULE (FP) PO SCH ×2 (10:56→22:38)
[2021-05-21 10:58] LABS: TOT PROT 6.9 g/dl (6.4-8.2)
[2021-05-21 10:59] LABS: ALBUMIN 3.1 g/dl (3.4-5.0)
[2021-05-21] MEDS: BACITRACIN 0.9 GM PACKET TP SCH ×2 (11:00→22:39)
[2021-05-21] MEDS: IBUPROFEN 400 MG TABLET (FP) PO PRN ×2 (11:01→19:12)
[2021-05-21 11:02] LABS: CREATININE 0.6 mg/dL (0.55-1.3)
[2021-05-21] MEDS: NICOTINE 7 MG/24 HOURS TOPICAL PATCH TD SCH (11:04)
[2021-05-21 11:16] LABS: BLOOD UREA NITROGEN 9.5 mg/dL (7-18)
[2021-05-21 11:58] LABS: BILIRUBIN,TOTAL 0.3 mg/dL (0.2-1)
[2021-05-21] MEDS ORDERED: POTASSIUM CHLORIDE ORAL LIQUID 20 MEQ/15 ML PO ONE ×2 (15:30→19:30)
[2021-05-21] MEDS: THIAMINE HCL 100 MG TABLET (FP) PO SCH (22:38)
[2021-05-21] MEDS: QUEtiapine FUMARATE 100 MG TABLET (FP) PO SCH (22:38)
[2021-05-21] MEDS: MELATONIN 5 MG TABLETS PO SCH (22:38)
[2021-05-22] MEDS ORDERED: METHADONE HCL 10 MG TABLET (FOR DETOX USE ONLY) PO ONE (10:00)
[2021-05-22] MEDS ORDERED: MAGNESIUM HYDROX 2400MG/30ML ORAL SUSPENSION 30 ML CUP PO ONE (10:07)
[2021-05-22] MEDS: NICOTINE 7 MG/24 HOURS TOPICAL PATCH TD SCH (10:20)
[2021-05-22] MEDS: METHOCARBAMOL 500 MG TABLET PO PRN ×2 (10:20→23:01)
[2021-05-22] MEDS: AMOXICILLIN 500 MG CAPSULE (FP) PO SCH ×2 (10:20→22:59)
[2021-05-22] MEDS: PRENATAL VITAMINS W/ FOLIC ACID TABLET (FP) PO SCH (10:20)
[2021-05-22] MEDS: BACITRACIN 0.9 GM PACKET TP SCH ×2 (10:20→22:59)
[2021-05-22] MEDS: amLODIPine BESYLATE 5 MG TABLET (FP) PO SCH (12:39)
[2021-05-22] MEDS: hydrOXYzine PAMOATE 25 MG CAPSULE (FP) PO PRN ×2 (12:41→23:00)
[2021-05-22] MEDS: IBUPROFEN 400 MG TABLET (FP) PO PRN ×2 (12:42→23:02)
[2021-05-22] MEDS: THIAMINE HCL 100 MG TABLET (FP) PO SCH (22:59)
[2021-05-22] MEDS: QUEtiapine FUMARATE 100 MG TABLET (FP) PO SCH (22:59)
[2021-05-22] MEDS: MELATONIN 5 MG TABLETS PO SCH (23:05)
[2021-05-23] MEDS: IBUPROFEN 400 MG TABLET (FP) PO PRN ×2 (07:25→14:17)
[2021-05-23] MEDS ORDERED: METHADONE HCL 5 MG TABLET (FOR DETOX USE ONLY) ONE (09:11)
[2021-05-23] MEDS ORDERED: METHADONE HCL 10 MG TABLET (FOR DETOX USE ONLY) ONE (09:11)
[2021-05-23] MEDS ORDERED: METHADONE (DETOX) 10 MG, METHADONE (DETOX) 5 MG PO ONE (10:00)
[2021-05-23] MEDS: hydrOXYzine PAMOATE 25 MG CAPSULE (FP) PO PRN ×4 (10:07→22:42)
[2021-05-23] MEDS: AMOXICILLIN 500 MG CAPSULE (FP) PO SCH ×2 (10:07→22:41)
[2021-05-23] MEDS: METHOCARBAMOL 500 MG TABLET PO PRN ×2 (10:08→17:57)
[2021-05-23] MEDS: amLODIPine BESYLATE 5 MG TABLET (FP) PO SCH (10:08)
[2021-05-23] MEDS: PRENATAL VITAMINS W/ FOLIC ACID TABLET (FP) PO SCH (10:09)
[2021-05-23] MEDS: BACITRACIN 0.9 GM PACKET TP SCH ×2 (10:09→22:42)
[2021-05-23] MEDS: ACETAMINOPHEN 325 MG TABLET (FP) PO PRN (10:12)
[2021-05-23] MEDS: NICOTINE 7 MG/24 HOURS TOPICAL PATCH TD SCH (10:14)
[2021-05-23] MEDS: LIDOCAINE 5% TOPICAL PATCH TP SCH (15:17)
[2021-05-23] MEDS: MELATONIN 5 MG TABLETS PO SCH (22:41)
[2021-05-23] MEDS: QUEtiapine FUMARATE 100 MG TABLET (FP) PO SCH (22:41)
[2021-05-23] MEDS: THIAMINE HCL 100 MG TABLET (FP) PO SCH (22:41)
[2021-05-23] MEDS: LIDOCAINE PATCH REMOVAL MC SCH (22:45)
[2021-05-24] MEDS: IBUPROFEN 400 MG TABLET (FP) PO PRN ×2 (09:32→16:39)
[2021-05-24] MEDS: PRENATAL VITAMINS W/ FOLIC ACID TABLET (FP) PO SCH (09:32)
[2021-05-24] MEDS: METHOCARBAMOL 500 MG TABLET PO PRN ×2 (09:32→16:38)
[2021-05-24] MEDS: amLODIPine BESYLATE 5 MG TABLET (FP) PO SCH (09:32)
[2021-05-24] MEDS: AMOXICILLIN 500 MG CAPSULE (FP) PO SCH ×2 (09:32→22:16)
[2021-05-24] MEDS: hydrOXYzine PAMOATE 25 MG CAPSULE (FP) PO PRN ×2 (09:34→13:37)
[2021-05-24] MEDS: LIDOCAINE 5% TOPICAL PATCH TP SCH (09:34)
[2021-05-24] MEDS: NICOTINE 7 MG/24 HOURS TOPICAL PATCH TD SCH (09:36)
[2021-05-24] MEDS: BACITRACIN 0.9 GM PACKET TP SCH ×2 (09:36→22:17)
[2021-05-24] MEDS ORDERED: METHADONE HCL 10 MG TABLET (FOR DETOX USE ONLY) PO ONE (10:00)
[2021-05-24] MEDS: THIAMINE HCL 100 MG TABLET (FP) PO SCH (22:16)
[2021-05-24] MEDS: MELATONIN 5 MG TABLETS PO SCH (22:16)
[2021-05-24] MEDS: QUEtiapine FUMARATE 100 MG TABLET (FP) PO SCH (22:16)
[2021-05-24] MEDS: LIDOCAINE PATCH REMOVAL MC SCH (22:18)
[2021-05-25] MEDS ORDERED: METHADONE HCL 5 MG TABLET (FOR DETOX USE ONLY) PO ONE (06:00)
[2021-05-25] MEDS: hydrOXYzine PAMOATE 25 MG CAPSULE (FP) PO PRN ×2 (06:03→14:21)
[2021-05-25] MEDS: IBUPROFEN 400 MG TABLET (FP) PO PRN ×2 (06:03→14:21)
[2021-05-25 10:10] VITALS: BP 132/69; PULSE 72; TEMP 98
[2021-05-25] MEDS: amLODIPine BESYLATE 5 MG TABLET (FP) PO SCH (10:24)
[2021-05-25] MEDS: AMOXICILLIN 500 MG CAPSULE (FP) PO SCH (10:24)
[2021-05-25] MEDS: LIDOCAINE 5% TOPICAL PATCH TP SCH (10:25)
[2021-05-25] MEDS: PRENATAL VITAMINS W/ FOLIC ACID TABLET (FP) PO SCH (10:26)
[2021-05-25] MEDS: BACITRACIN 0.9 GM PACKET TP SCH (10:26)
[2021-05-25] MEDS: ACETAMINOPHEN 325 MG TABLET (FP) PO PRN (10:26)
[2021-05-25] MEDS: NICOTINE 7 MG/24 HOURS TOPICAL PATCH TD SCH (10:26)
[2021-05-25] MEDS: METHOCARBAMOL 500 MG TABLET PO PRN (14:21)
== END 2021-05-25 17:15 | disposition home or self-care (01) | DRG 773 ==
LOC: YASAS 17:42 → Y6N 19:52
PROVIDERS: ADMIT Allergy & Immunology; ATTEND Allergy & Immunology
PROC: HZ2ZZZZ Detoxification Services for Substance Abuse Treatment (ICD-10-PCS; principal; 2021-05-20)
DX: F11.23 Opioid dependence with withdrawal (principal); F14.20 Cocaine dependence, uncomplicated; F17.210 Nicotine dependence, cigarettes, uncomplicated; F19.24 Other psychoactive substance dependence with psychoactive substance-induced mood disorder; F19.282 Other psychoactive substance dependence with psychoactive substance-induced sleep disorder; F31.9 Bipolar disorder, unspecified; I10 Essential (primary) hypertension; J45.20 Mild intermittent asthma, uncomplicated; K21.9 Gastro-esophageal reflux disease without esophagitis; M54.5 Low back pain; G89.29 Other chronic pain; K12.30 Oral mucositis (ulcerative), unspecified; E87.6 Hypokalemia; Z88.8 Allergy status to other drugs, medicaments and biological substances; Z62.810 Personal history of physical and sexual abuse in childhood; Z91.410 Personal history of adult physical and sexual abuse; Z56.0 Unemployment, unspecified; Z59.0 Homelessness
CPT/HCPCS: 36415; 80053; 81025; 84132; 85027; C9803; J0735; U0003; U0005

== ENCOUNTER 2021-06-22 13:14 | Inpatient (IN) | payer OTHER ==
[2021-06-22 14:08] VITALS: BMI 32.5
[2021-06-22] MEDS ORDERED: MAGNESIUM HYDROX 2400MG/30ML ORAL SUSPENSION 30 ML CUP PO PRN (15:32)
[2021-06-22] MEDS ORDERED: NALOXONE HCL 0.4 MG/ML VIAL IM PRN (15:32)
[2021-06-22] MEDS ORDERED: BISMUTH SUBSALICYLATE 524 MG/30 ML PO PRN (15:32)
[2021-06-22] MEDS ORDERED: MAGNESIUM CITRATE 300 ML BOTTLE PO PRN (15:32)
[2021-06-22] MEDS ORDERED: NICOTINE POLACRILEX 2 MG GUM BUC PRN (15:32)
[2021-06-22] MEDS ORDERED: ACETAMINOPHEN 325 MG TABLET (FP) PO PRN (15:32)
[2021-06-22] MEDS ORDERED: MENTHOL/PHENOL 1 EACH UD MM PRN (15:32)
[2021-06-22] MEDS ORDERED: methaDONE HCL 10 MG TABLET (FOR DETOX USE ONLY) PO ONE (17:30)
[2021-06-22] MEDS: THIAMINE HCL 100 MG TABLET (FP) PO SCH (22:28)
[2021-06-22] MEDS: cloNIDine HCL 0.1 MG TABLET PO PRN (22:29)
[2021-06-22] MEDS: MELATONIN 5 MG TABLETS PO SCH (22:29)
[2021-06-22] MEDS: METHOCARBAMOL 500 MG TABLET PO PRN (22:29)
[2021-06-22] MEDS: LIDOCAINE PATCH REMOVAL MC SCH (22:29)
[2021-06-23] MEDS: IBUPROFEN 400 MG TABLET (FP) PO PRN ×2 (05:03→22:44)
[2021-06-23] MEDS: METHOCARBAMOL 500 MG TABLET PO PRN ×2 (05:03→12:39)
[2021-06-23] MEDS ORDERED: methaDONE HCL 10 MG TABLET (FOR DETOX USE ONLY) ONE (09:14)
[2021-06-23] MEDS: PRENATAL VITAMINS W/ FOLIC ACID TABLET (FP) PO SCH (11:05)
[2021-06-23] MEDS: amLODIPine BESYLATE 5 MG TABLET (FP) PO SCH (11:06)
[2021-06-23] MEDS: LIDOCAINE 5% TOPICAL PATCH TP SCH (11:07)
[2021-06-23] MEDS: NICOTINE 14 MG/24 HOURS TOPICAL PATCH TD SCH ×2 (11:07→14:08)
[2021-06-23] MEDS: cloNIDine HCL 0.1 MG TABLET PO PRN ×2 (14:06→22:46)
[2021-06-23 14:56] LABS: HEMATOCRIT 39.2 % (32.4-45.2); MCHC 33.2 g/dl (32.0-36.0); MEAN CELL VOLUME 87.4 fl (80-96); MEAN PLT VOLUME 9.6 fl (7.5-11.1); PLATELET COUNT 288 10^3/uL (134-434); RBC 4.49 M/mm3 (3.60-5.2); RDW 13.7 % (11.6-15.6); WHITE BLOOD COUNT 10.4 K/mm3 (4.0-10.0)
[2021-06-23 15:09] LABS: CALCIUM 9.6 mg/dL (8.5-10.1)
[2021-06-23 15:10] LABS: CREATININE 0.9 mg/dL (0.55-1.3)
[2021-06-23 15:11] LABS: BILIRUBIN,TOTAL 0.4 mg/dL (0.2-1)
[2021-06-23 15:12] LABS: TOT PROT 8.1 g/dl (6.4-8.2)
[2021-06-23] MEDS: MAG HYDROX/AL HYDROX/SIMETH 30 ML UNIT-DOSE CUP PO PRN (16:04)
[2021-06-23 16:18] LABS: HIV INTERPRETATION NEGATIVE (NEGATIVE)
[2021-06-23] MEDS ORDERED: ALBUTEROL SO4 HFA INHALER IH PRN (18:15)
[2021-06-23] MEDS: PANTOPRAZOLE 40 MG TABLET PO SCH ×2 (18:41→22:43)
[2021-06-23] MEDS: THIAMINE HCL 100 MG TABLET (FP) PO SCH (22:43)
[2021-06-23] MEDS: QUEtiapine FUMARATE 100 MG TABLET (FP) PO SCH (22:43)
[2021-06-23] MEDS: LIDOCAINE PATCH REMOVAL MC SCH (22:44)
[2021-06-23] MEDS: MELATONIN 5 MG TABLETS PO SCH (22:44)
[2021-06-24] MEDS ORDERED: methaDONE HCL 10 MG TABLET (FOR DETOX USE ONLY) PO ONE (10:00)
[2021-06-24] MEDS: LIDOCAINE 5% TOPICAL PATCH TP SCH (10:01)
[2021-06-24] MEDS: MAG HYDROX/AL HYDROX/SIMETH 30 ML UNIT-DOSE CUP PO PRN (10:01)
[2021-06-24] MEDS: PRENATAL VITAMINS W/ FOLIC ACID TABLET (FP) PO SCH (10:01)
[2021-06-24] MEDS: NICOTINE 14 MG/24 HOURS TOPICAL PATCH TD SCH (10:02)
[2021-06-24] MEDS: METHOCARBAMOL 500 MG TABLET PO PRN ×2 (10:02→22:22)
[2021-06-24] MEDS: amLODIPine BESYLATE 5 MG TABLET (FP) PO SCH (10:02)
[2021-06-24] MEDS: IBUPROFEN 400 MG TABLET (FP) PO PRN (10:02)
[2021-06-24] MEDS: PANTOPRAZOLE 40 MG TABLET PO SCH ×2 (10:02→22:19)
[2021-06-24] MEDS: cloNIDine HCL 0.1 MG TABLET PO PRN (10:06)
[2021-06-24] MEDS ORDERED: ALBUTEROL SO4 HFA INHALER IH PRN (12:34)
[2021-06-24] MEDS ORDERED: LIDOCAINE 5% TOPICAL PATCH TP SCH (12:35)
[2021-06-24] MEDS: METHYL SALICYLATE/MENTHOL OINT 30 GM TUBE TP SCH ×2 (14:54→22:19)
[2021-06-24] MEDS: ACETAMINOPHEN 325 MG TABLET (FP) PO PRN (15:12)
[2021-06-24] MEDS: QUEtiapine FUMARATE 100 MG TABLET (FP) PO SCH (22:19)
[2021-06-24] MEDS: MELATONIN 5 MG TABLETS PO SCH (22:19)
[2021-06-24] MEDS: THIAMINE HCL 100 MG TABLET (FP) PO SCH (22:19)
[2021-06-24] MEDS: LIDOCAINE PATCH REMOVAL MC SCH (22:20)
[2021-06-24] MEDS: IBUPROFEN 600 MG TABLET (FP) PO PRN (22:21)
[2021-06-25] MEDS: IBUPROFEN 600 MG TABLET (FP) PO PRN (06:12)
[2021-06-25] MEDS ORDERED: methaDONE HCL 10 MG TABLET (FOR DETOX USE ONLY) ONE (09:30)
[2021-06-25] MEDS: METHYL SALICYLATE/MENTHOL OINT 30 GM TUBE TP SCH ×2 (09:42→22:04)
[2021-06-25] MEDS: PRENATAL VITAMINS W/ FOLIC ACID TABLET (FP) PO SCH (09:42)
[2021-06-25] MEDS: PANTOPRAZOLE 40 MG TABLET PO SCH ×2 (09:43→22:04)
[2021-06-25] MEDS: NICOTINE 14 MG/24 HOURS TOPICAL PATCH TD SCH (09:43)
[2021-06-25] MEDS: amLODIPine BESYLATE 5 MG TABLET (FP) PO SCH (09:43)
[2021-06-25] MEDS: METHOCARBAMOL 500 MG TABLET PO PRN (09:43)
[2021-06-25] MEDS: ACETAMINOPHEN 325 MG TABLET (FP) PO PRN (09:46)
[2021-06-25] MEDS ORDERED: AMMONIUM LACTATE 12% LOTION 225 GM BOTTLE TP PRN (11:44)
[2021-06-25] MEDS ORDERED: LIDOCAINE 5% TOPICAL PATCH TP SCH (13:12)
[2021-06-25] MEDS: IBUPROFEN 400 MG TABLET (FP) PO PRN (19:40)
[2021-06-25] MEDS: METHOCARBAMOL 750 MG TAB PO PRN (19:41)
[2021-06-25] MEDS: QUEtiapine FUMARATE 100 MG TABLET (FP) PO SCH (22:04)
[2021-06-25] MEDS: THIAMINE HCL 100 MG TABLET (FP) PO SCH (22:05)
[2021-06-25] MEDS: LIDOCAINE PATCH REMOVAL MC SCH (22:05)
[2021-06-25] MEDS: MELATONIN 5 MG TABLETS PO SCH (22:05)
[2021-06-25] MEDS: hydrOXYzine PAMOATE 25 MG CAPSULE (FP) PO PRN (22:05)
[2021-06-26] MEDS: IBUPROFEN 400 MG TABLET (FP) PO PRN ×3 (06:38→18:37)
[2021-06-26] MEDS: METHOCARBAMOL 750 MG TAB PO PRN ×3 (06:41→19:08)
[2021-06-26] MEDS: hydrOXYzine PAMOATE 25 MG CAPSULE (FP) PO PRN ×2 (09:33→13:49)
[2021-06-26] MEDS: amLODIPine BESYLATE 5 MG TABLET (FP) PO SCH (09:33)
[2021-06-26] MEDS: PRENATAL VITAMINS W/ FOLIC ACID TABLET (FP) PO SCH (09:33)
[2021-06-26] MEDS: PANTOPRAZOLE 40 MG TABLET PO SCH ×2 (09:33→22:05)
[2021-06-26] MEDS: LIDOCAINE 5% TOPICAL PATCH TP SCH (09:35)
[2021-06-26] MEDS: METHYL SALICYLATE/MENTHOL OINT 30 GM TUBE TP SCH ×2 (09:35→23:11)
[2021-06-26] MEDS: NICOTINE 14 MG/24 HOURS TOPICAL PATCH TD SCH (09:36)
[2021-06-26] MEDS ORDERED: methaDONE HCL 10 MG TABLET (FOR DETOX USE ONLY) PO ONE (10:00)
[2021-06-26] MEDS: LIDOCAINE VISCOUS 2% ORAL/TOP 15 ML UNIT-DOSE CUP MM PRN (12:56)
[2021-06-26] MEDS: AMOXICILLIN 500 MG CAPSULE (FP) PO SCH ×2 (13:49→22:05)
[2021-06-26] MEDS: THIAMINE HCL 100 MG TABLET (FP) PO SCH (22:05)
[2021-06-26] MEDS: QUEtiapine FUMARATE 100 MG TABLET (FP) PO SCH (22:05)
[2021-06-26] MEDS: MELATONIN 5 MG TABLETS PO SCH (22:07)
[2021-06-26] MEDS: LIDOCAINE PATCH REMOVAL MC SCH (23:11)
[2021-06-27] MEDS: AMOXICILLIN 500 MG CAPSULE (FP) PO SCH ×2 (05:49→13:09)
[2021-06-27] MEDS: METHOCARBAMOL 750 MG TAB PO PRN ×2 (05:50→13:11)
[2021-06-27] MEDS: IBUPROFEN 400 MG TABLET (FP) PO PRN ×2 (05:52→13:09)
[2021-06-27] MEDS: LIDOCAINE 5% TOPICAL PATCH TP SCH (09:38)
[2021-06-27] MEDS: NICOTINE 14 MG/24 HOURS TOPICAL PATCH TD SCH (09:38)
[2021-06-27] MEDS: PANTOPRAZOLE 40 MG TABLET PO SCH (09:39)
[2021-06-27] MEDS: PRENATAL VITAMINS W/ FOLIC ACID TABLET (FP) PO SCH (09:39)
[2021-06-27] MEDS: amLODIPine BESYLATE 5 MG TABLET (FP) PO SCH (09:39)
[2021-06-27] MEDS: METHYL SALICYLATE/MENTHOL OINT 30 GM TUBE TP SCH (09:41)
[2021-06-27] MEDS: hydrOXYzine PAMOATE 25 MG CAPSULE (FP) PO PRN (09:41)
[2021-06-27] MEDS: LIDOCAINE VISCOUS 2% ORAL/TOP 15 ML UNIT-DOSE CUP MM PRN (11:29)
[2021-06-27] MEDS ORDERED: LIDOCAINE VISCOUS 2% ORAL/TOP 15 ML UNIT-DOSE CUP MM PRN (13:26)
[2021-06-27] MEDS ORDERED: BENZOCAINE 20 % GEL TUBE MM PRN (13:46)
[2021-06-27 17:35] VITALS: BP 147/76; PULSE 67; TEMP 97.1
== END 2021-06-27 17:19 | disposition other institution (70) | DRG 773 ==
LOC: YASAS 13:14 → Y3N 17:01
PROVIDERS: ADMIT Allergy & Immunology; ATTEND Allergy & Immunology
PROC: HZ2ZZZZ Detoxification Services for Substance Abuse Treatment (ICD-10-PCS; principal; 2021-06-22)
DX: F11.23 Opioid dependence with withdrawal (principal); F14.20 Cocaine dependence, uncomplicated; F12.10 Cannabis abuse, uncomplicated; F17.210 Nicotine dependence, cigarettes, uncomplicated; F31.9 Bipolar disorder, unspecified; F19.24 Other psychoactive substance dependence with psychoactive substance-induced mood disorder; F19.282 Other psychoactive substance dependence with psychoactive substance-induced sleep disorder; I10 Essential (primary) hypertension; J45.20 Mild intermittent asthma, uncomplicated; K21.9 Gastro-esophageal reflux disease without esophagitis; M54.40 Lumbago with sciatica, unspecified side; G89.29 Other chronic pain; M17.0 Bilateral primary osteoarthritis of knee; L98.8 Other specified disorders of the skin and subcutaneous tissue; Z88.8 Allergy status to other drugs, medicaments and biological substances; Z62.810 Personal history of physical and sexual abuse in childhood; Z91.410 Personal history of adult physical and sexual abuse; Z56.0 Unemployment, unspecified; Z59.0 Homelessness
CPT/HCPCS: 36415; 80053; 81025; 85027; 86780; 87389; C9803; J0735; U0003; U0005

== ENCOUNTER 2021-06-27 17:22 | Inpatient (IN) | payer OTHER ==
[2021-06-27] MEDS ORDERED: MAGNESIUM HYDROX 2400MG/30ML ORAL SUSPENSION 30 ML CUP PO PRN (20:33)
[2021-06-27] MEDS ORDERED: MAGNESIUM CITRATE 300 ML BOTTLE PO PRN (20:33)
[2021-06-27] MEDS ORDERED: P-EPHED 60MG/TRIPROLIDI 2.5MG TABLET PO PRN (20:33)
[2021-06-27] MEDS ORDERED: LOPERAMIDE HCL 2 MG CAPSULE PO PRN (20:33)
[2021-06-27] MEDS ORDERED: IBUPROFEN 400 MG TABLET (FP) PO PRN (20:33)
[2021-06-27] MEDS ORDERED: MENTHOL/PHENOL 1 EACH UD MM PRN (20:33)
[2021-06-27] MEDS ORDERED: guaiFENesin 200 MG/10 ML 10 ML UNIT-DOSE CUPS PO PRN (20:33)
[2021-06-27] MEDS ORDERED: METHOCARBAMOL 750 MG TABLET PO PRN (21:01)
[2021-06-27] MEDS: hydrOXYzine PAMOATE 25 MG CAPSULE (FP) PO SCH (21:26)
[2021-06-27] MEDS: MELATONIN 5 MG TABLETS PO SCH (21:26)
[2021-06-27] MEDS: IBUPROFEN 400 MG TABLET (FP) PO PRN (21:27)
[2021-06-27] MEDS: THIAMINE HCL 100 MG TABLET (FP) PO SCH (21:27)
[2021-06-27] MEDS: METHOCARBAMOL 500 MG TABLET PO PRN (21:28)
[2021-06-28] MEDS: METHOCARBAMOL 500 MG TABLET PO PRN ×3 (05:57→22:47)
[2021-06-28] MEDS: hydrOXYzine PAMOATE 25 MG CAPSULE (FP) PO SCH ×5 (05:58→21:25)
[2021-06-28] MEDS: IBUPROFEN 400 MG TABLET (FP) PO PRN ×3 (05:59→22:47)
[2021-06-28] MEDS: NICOTINE 14 MG/24 HOURS TOPICAL PATCH TD SCH (10:28)
[2021-06-28] MEDS: NICOTINE 7 MG/24 HOURS TOPICAL PATCH TD SCH (10:28)
[2021-06-28] MEDS: PRENATAL VITAMINS W/ FOLIC ACID TABLET (FP) PO SCH (10:29)
[2021-06-28] MEDS: amLODIPine BESYLATE 5 MG TABLET (FP) PO SCH (10:29)
[2021-06-28] MEDS: ACETAMINOPHEN 325 MG TABLET (FP) PO PRN (10:33)
[2021-06-28] MEDS ORDERED: LIDOCAINE VISCOUS 2% ORAL/TOP 15 ML UNIT-DOSE CUP MM PRN (12:41)
[2021-06-28] MEDS ORDERED: LIDOCAINE 5% TOPICAL PATCH TP SCH (12:45)
[2021-06-28] MEDS ORDERED: PT OWN MED DRAWER 7, Y5N ONE ×2 (13:35→22:46)
[2021-06-28] MEDS: AMOXICILLIN 500 MG CAPSULE (FP) PO SCH ×2 (13:50→21:25)
[2021-06-28] MEDS: METHYL SALICYLATE/MENTHOL OINT 30 GM TUBE TP SCH ×2 (14:28→22:17)
[2021-06-28] MEDS: PANTOPRAZOLE 20 MG TABLET PO SCH ×2 (14:28→21:25)
[2021-06-28] MEDS: LIDOCAINE PATCH REMOVAL MC SCH (21:25)
[2021-06-28] MEDS: MELATONIN 5 MG TABLETS PO SCH (21:25)
[2021-06-28] MEDS: THIAMINE HCL 100 MG TABLET (FP) PO SCH (21:25)
[2021-06-28] MEDS: QUEtiapine FUMARATE 100 MG TABLET (FP) PO SCH (21:25)
[2021-06-29] MEDS: METHOCARBAMOL 500 MG TABLET PO PRN ×3 (06:16→22:25)
[2021-06-29] MEDS: hydrOXYzine PAMOATE 25 MG CAPSULE (FP) PO SCH ×5 (06:16→21:04)
[2021-06-29] MEDS: IBUPROFEN 400 MG TABLET (FP) PO PRN ×3 (06:17→22:27)
[2021-06-29] MEDS: AMOXICILLIN 500 MG CAPSULE (FP) PO SCH ×3 (06:17→21:04)
[2021-06-29] MEDS: LIDOCAINE 5% TOPICAL PATCH TP SCH (10:14)
[2021-06-29] MEDS: PANTOPRAZOLE 20 MG TABLET PO SCH ×2 (10:15→21:04)
[2021-06-29] MEDS: NICOTINE 14 MG/24 HOURS TOPICAL PATCH TD SCH (10:15)
[2021-06-29] MEDS: amLODIPine BESYLATE 5 MG TABLET (FP) PO SCH (10:15)
[2021-06-29] MEDS: PRENATAL VITAMINS W/ FOLIC ACID TABLET (FP) PO SCH (10:15)
[2021-06-29] MEDS: NICOTINE 7 MG/24 HOURS TOPICAL PATCH TD SCH (10:16)
[2021-06-29] MEDS: METHYL SALICYLATE/MENTHOL OINT 30 GM TUBE TP SCH ×2 (10:17→21:04)
[2021-06-29] MEDS: ALBUTEROL SO4 HFA INHALER IH PRN (10:17)
[2021-06-29] MEDS: THIAMINE HCL 100 MG TABLET (FP) PO SCH (21:04)
[2021-06-29] MEDS: LIDOCAINE PATCH REMOVAL MC SCH (21:04)
[2021-06-29] MEDS: QUEtiapine FUMARATE 100 MG TABLET (FP) PO SCH (21:04)
[2021-06-29] MEDS: MELATONIN 5 MG TABLETS PO SCH (21:04)
[2021-06-29] MEDS ORDERED: PT OWN MED DRAWER 7, Y5N ONE (22:24)
[2021-06-30] MEDS: IBUPROFEN 400 MG TABLET (FP) PO PRN ×2 (06:56→19:26)
[2021-06-30] MEDS: AMOXICILLIN 500 MG CAPSULE (FP) PO SCH ×3 (06:57→21:40)
[2021-06-30] MEDS: METHOCARBAMOL 500 MG TABLET PO PRN ×2 (06:57→19:26)
[2021-06-30] MEDS: hydrOXYzine PAMOATE 25 MG CAPSULE (FP) PO SCH ×5 (06:58→21:40)
[2021-06-30] MEDS: LIDOCAINE 5% TOPICAL PATCH TP SCH (10:05)
[2021-06-30] MEDS: NICOTINE 14 MG/24 HOURS TOPICAL PATCH TD SCH (10:06)
[2021-06-30] MEDS: METHYL SALICYLATE/MENTHOL OINT 30 GM TUBE TP SCH ×2 (10:06→21:41)
[2021-06-30] MEDS: NICOTINE 7 MG/24 HOURS TOPICAL PATCH TD SCH (10:06)
[2021-06-30] MEDS: PRENATAL VITAMINS W/ FOLIC ACID TABLET (FP) PO SCH (10:07)
[2021-06-30] MEDS: amLODIPine BESYLATE 5 MG TABLET (FP) PO SCH (10:07)
[2021-06-30] MEDS: PANTOPRAZOLE 20 MG TABLET PO SCH ×2 (13:10→22:00)
[2021-06-30] MEDS ORDERED: PT OWN MED DRAWER 7, Y5N ONE (19:26)
[2021-06-30] MEDS: QUEtiapine FUMARATE 100 MG TABLET (FP) PO SCH (21:40)
[2021-06-30] MEDS: THIAMINE HCL 100 MG TABLET (FP) PO SCH (21:40)
[2021-06-30] MEDS: MELATONIN 5 MG TABLETS PO SCH (21:40)
[2021-06-30] MEDS: LIDOCAINE PATCH REMOVAL MC SCH (22:00)
[2021-07-01] MEDS: AMOXICILLIN 500 MG CAPSULE (FP) PO SCH ×3 (06:40→21:35)
[2021-07-01] MEDS: hydrOXYzine PAMOATE 25 MG CAPSULE (FP) PO SCH ×5 (06:41→22:18)
[2021-07-01] MEDS: IBUPROFEN 400 MG TABLET (FP) PO PRN ×3 (06:41→21:33)
[2021-07-01] MEDS: METHOCARBAMOL 500 MG TABLET PO PRN ×2 (06:43→13:29)
[2021-07-01] MEDS: METHYL SALICYLATE/MENTHOL OINT 30 GM TUBE TP SCH ×2 (10:19→21:37)
[2021-07-01] MEDS: amLODIPine BESYLATE 5 MG TABLET (FP) PO SCH (10:20)
[2021-07-01] MEDS: NICOTINE 7 MG/24 HOURS TOPICAL PATCH TD SCH (10:20)
[2021-07-01] MEDS: LIDOCAINE 5% TOPICAL PATCH TP SCH (10:20)
[2021-07-01] MEDS: PRENATAL VITAMINS W/ FOLIC ACID TABLET (FP) PO SCH (10:21)
[2021-07-01] MEDS: NICOTINE 14 MG/24 HOURS TOPICAL PATCH TD SCH (10:21)
[2021-07-01] MEDS: PANTOPRAZOLE 20 MG TABLET PO SCH ×2 (12:05→21:35)
[2021-07-01] MEDS ORDERED: BUPRENORPHINE/NALOXONE 2 MG/0.5 MG FILM PACKET SL ONE ×2 (13:07→22:00)
[2021-07-01] MEDS: THIAMINE HCL 100 MG TABLET (FP) PO SCH (21:33)
[2021-07-01] MEDS: QUEtiapine FUMARATE 50 MG TABLET PO SCH (21:35)
[2021-07-01] MEDS: LIDOCAINE PATCH REMOVAL MC SCH (21:37)
[2021-07-01] MEDS: MELATONIN 5 MG TABLETS PO SCH (21:37)
[2021-07-02] MEDS ORDERED: PT OWN MED DRAWER 7, Y5N ONE (05:01)
[2021-07-02] MEDS: AMOXICILLIN 500 MG CAPSULE (FP) PO SCH ×3 (05:36→21:16)
[2021-07-02] MEDS: IBUPROFEN 400 MG TABLET (FP) PO PRN ×2 (05:36→21:15)
[2021-07-02] MEDS: METHOCARBAMOL 750 MG TAB PO PRN (05:37)
[2021-07-02] MEDS: hydrOXYzine PAMOATE 25 MG CAPSULE (FP) PO SCH ×3 (05:38→14:29)
[2021-07-02] MEDS: LIDOCAINE 5% TOPICAL PATCH TP SCH (10:01)
[2021-07-02] MEDS: NICOTINE 14 MG/24 HOURS TOPICAL PATCH TD SCH (10:01)
[2021-07-02] MEDS: NICOTINE 7 MG/24 HOURS TOPICAL PATCH TD SCH (10:01)
[2021-07-02] MEDS: METHYL SALICYLATE/MENTHOL OINT 30 GM TUBE TP SCH ×2 (10:01→21:19)
[2021-07-02] MEDS: PRENATAL VITAMINS W/ FOLIC ACID TABLET (FP) PO SCH (10:01)
[2021-07-02] MEDS: amLODIPine BESYLATE 5 MG TABLET (FP) PO SCH (10:02)
[2021-07-02] MEDS: PANTOPRAZOLE 20 MG TABLET PO SCH ×2 (10:02→21:16)
[2021-07-02] MEDS: BUPRENORPHINE/NALOXONE 4 MG/1 MG FILM PACKET SL SCH ×2 (10:03→21:16)
[2021-07-02] MEDS: THIAMINE HCL 100 MG TABLET (FP) PO SCH (21:16)
[2021-07-02] MEDS: LIDOCAINE PATCH REMOVAL MC SCH (21:19)
[2021-07-02] MEDS: MELATONIN 5 MG TABLETS PO SCH (21:19)
[2021-07-02] MEDS: QUEtiapine FUMARATE 50 MG TABLET PO SCH (21:19)
[2021-07-03] MEDS ORDERED: PT OWN MED DRAWER 7, Y5N ONE ×2 (03:05→19:41)
[2021-07-03] MEDS: AMOXICILLIN 500 MG CAPSULE (FP) PO SCH ×3 (06:17→21:21)
[2021-07-03] MEDS: METHOCARBAMOL 750 MG TAB PO PRN (06:18)
[2021-07-03] MEDS: IBUPROFEN 400 MG TABLET (FP) PO PRN ×2 (06:18→17:33)
[2021-07-03] MEDS: PRENATAL VITAMINS W/ FOLIC ACID TABLET (FP) PO SCH (10:00)
[2021-07-03] MEDS: PANTOPRAZOLE 20 MG TABLET PO SCH ×2 (10:02→21:21)
[2021-07-03] MEDS: amLODIPine BESYLATE 5 MG TABLET (FP) PO SCH (10:02)
[2021-07-03] MEDS: BUPRENORPHINE/NALOXONE 4 MG/1 MG FILM PACKET SL SCH ×2 (10:03→21:20)
[2021-07-03] MEDS: NICOTINE 14 MG/24 HOURS TOPICAL PATCH TD SCH (10:04)
[2021-07-03] MEDS: METHYL SALICYLATE/MENTHOL OINT 30 GM TUBE TP SCH ×2 (10:04→21:21)
[2021-07-03] MEDS: NICOTINE 7 MG/24 HOURS TOPICAL PATCH TD SCH (10:04)
[2021-07-03] MEDS: LIDOCAINE 5% TOPICAL PATCH TP SCH (10:06)
[2021-07-03] MEDS: QUEtiapine FUMARATE 50 MG TABLET PO SCH (21:23)
[2021-07-03] MEDS: THIAMINE HCL 100 MG TABLET (FP) PO SCH (22:29)
[2021-07-03] MEDS: LIDOCAINE PATCH REMOVAL MC SCH (22:29)
[2021-07-03] MEDS: MELATONIN 5 MG TABLETS PO SCH (22:29)
[2021-07-04] MEDS: ACETAMINOPHEN 325 MG TABLET (FP) PO PRN (03:12)
[2021-07-04] MEDS: METHOCARBAMOL 750 MG TAB PO PRN ×2 (03:13→14:02)
[2021-07-04] MEDS: AMOXICILLIN 500 MG CAPSULE (FP) PO SCH ×3 (06:30→21:42)
[2021-07-04] MEDS: IBUPROFEN 400 MG TABLET (FP) PO PRN ×2 (06:30→14:01)
[2021-07-04] MEDS: LIDOCAINE 5% TOPICAL PATCH TP SCH (10:16)
[2021-07-04] MEDS: METHYL SALICYLATE/MENTHOL OINT 30 GM TUBE TP SCH ×2 (10:16→21:42)
[2021-07-04] MEDS: amLODIPine BESYLATE 5 MG TABLET (FP) PO SCH (10:17)
[2021-07-04] MEDS: PRENATAL VITAMINS W/ FOLIC ACID TABLET (FP) PO SCH (10:17)
[2021-07-04] MEDS: NICOTINE 14 MG/24 HOURS TOPICAL PATCH TD SCH (10:17)
[2021-07-04] MEDS: NICOTINE 7 MG/24 HOURS TOPICAL PATCH TD SCH (10:17)
[2021-07-04] MEDS: PANTOPRAZOLE 20 MG TABLET PO SCH ×2 (10:17→21:42)
[2021-07-04] MEDS: BUPRENORPHINE/NALOXONE 4 MG/1 MG FILM PACKET SL SCH ×2 (10:18→21:46)
[2021-07-04] MEDS ORDERED: PT OWN MED DRAWER 7, Y5N ONE ×2 (11:48→20:44)
[2021-07-04] MEDS: THIAMINE HCL 100 MG TABLET (FP) PO SCH (21:42)
[2021-07-04] MEDS: QUEtiapine FUMARATE 50 MG TABLET PO SCH (21:42)
[2021-07-04] MEDS: MELATONIN 5 MG TABLETS PO SCH (21:43)
[2021-07-04] MEDS: LIDOCAINE PATCH REMOVAL MC SCH (21:43)
[2021-07-05] MEDS: AMOXICILLIN 500 MG CAPSULE (FP) PO SCH (06:44)
[2021-07-05] MEDS: IBUPROFEN 400 MG TABLET (FP) PO PRN ×2 (06:47→14:16)
[2021-07-05] MEDS: METHOCARBAMOL 750 MG TAB PO PRN (06:47)
[2021-07-05] MEDS: METHYL SALICYLATE/MENTHOL OINT 30 GM TUBE TP SCH ×2 (10:27→21:19)
[2021-07-05] MEDS: LIDOCAINE 5% TOPICAL PATCH TP SCH (10:28)
[2021-07-05] MEDS: NICOTINE 7 MG/24 HOURS TOPICAL PATCH TD SCH (10:29)
[2021-07-05] MEDS: amLODIPine BESYLATE 5 MG TABLET (FP) PO SCH (10:30)
[2021-07-05] MEDS: NICOTINE 14 MG/24 HOURS TOPICAL PATCH TD SCH (10:30)
[2021-07-05] MEDS: PRENATAL VITAMINS W/ FOLIC ACID TABLET (FP) PO SCH (10:30)
[2021-07-05] MEDS: BUPRENORPHINE/NALOXONE 4 MG/1 MG FILM PACKET SL SCH ×2 (10:31→21:22)
[2021-07-05] MEDS: PANTOPRAZOLE 20 MG TABLET PO SCH ×2 (10:34→21:19)
[2021-07-05] MEDS: THIAMINE HCL 100 MG TABLET (FP) PO SCH (21:19)
[2021-07-05] MEDS: QUEtiapine FUMARATE 50 MG TABLET PO SCH (21:19)
[2021-07-05] MEDS: MELATONIN 5 MG TABLETS PO SCH (21:20)
[2021-07-05] MEDS: LIDOCAINE PATCH REMOVAL MC SCH (21:20)
[2021-07-06] MEDS ORDERED: PT OWN MED DRAWER 7, Y5N ONE ×2 (06:21→17:01)
[2021-07-06] MEDS: IBUPROFEN 400 MG TABLET (FP) PO PRN ×2 (06:22→17:02)
[2021-07-06] MEDS: METHOCARBAMOL 750 MG TAB PO PRN ×2 (06:22→17:02)
[2021-07-06] MEDS: METHYL SALICYLATE/MENTHOL OINT 30 GM TUBE TP SCH ×2 (10:28→22:16)
[2021-07-06] MEDS: LIDOCAINE 5% TOPICAL PATCH TP SCH (10:28)
[2021-07-06] MEDS: NICOTINE 7 MG/24 HOURS TOPICAL PATCH TD SCH (10:29)
[2021-07-06] MEDS: PRENATAL VITAMINS W/ FOLIC ACID TABLET (FP) PO SCH (10:29)
[2021-07-06] MEDS: NICOTINE 14 MG/24 HOURS TOPICAL PATCH TD SCH (10:29)
[2021-07-06] MEDS: NICOTINE 10 MG CARTRIDGE (INHALER) IH PRN (10:29)
[2021-07-06] MEDS: PANTOPRAZOLE 20 MG TABLET PO SCH ×2 (10:29→22:14)
[2021-07-06] MEDS: BUPRENORPHINE/NALOXONE 4 MG/1 MG FILM PACKET SL SCH ×2 (10:30→22:15)
[2021-07-06] MEDS: amLODIPine BESYLATE 5 MG TABLET (FP) PO SCH (10:30)
[2021-07-06] MEDS: QUEtiapine FUMARATE 50 MG TABLET PO SCH (22:14)
[2021-07-06] MEDS: THIAMINE HCL 100 MG TABLET (FP) PO SCH (22:14)
[2021-07-06] MEDS: LIDOCAINE PATCH REMOVAL MC SCH (22:15)
[2021-07-06] MEDS: MELATONIN 5 MG TABLETS PO SCH (22:16)
[2021-07-07] MEDS: IBUPROFEN 400 MG TABLET (FP) PO PRN ×2 (02:16→14:09)
[2021-07-07] MEDS: METHOCARBAMOL 750 MG TAB PO PRN ×2 (06:08→14:09)
[2021-07-07] MEDS: hydrOXYzine PAMOATE 25 MG CAPSULE (FP) PO PRN (06:08)
[2021-07-07] MEDS: METHYL SALICYLATE/MENTHOL OINT 30 GM TUBE TP SCH ×2 (10:13→21:59)
[2021-07-07] MEDS: PANTOPRAZOLE 20 MG TABLET PO SCH ×2 (10:13→21:58)
[2021-07-07] MEDS: PRENATAL VITAMINS W/ FOLIC ACID TABLET (FP) PO SCH (10:13)
[2021-07-07] MEDS: amLODIPine BESYLATE 5 MG TABLET (FP) PO SCH (10:13)
[2021-07-07] MEDS: BUPRENORPHINE/NALOXONE 4 MG/1 MG FILM PACKET SL SCH ×2 (10:14→21:59)
[2021-07-07] MEDS: NICOTINE 7 MG/24 HOURS TOPICAL PATCH TD SCH (10:14)
[2021-07-07] MEDS: LIDOCAINE 5% TOPICAL PATCH TP SCH (10:14)
[2021-07-07] MEDS: NICOTINE 14 MG/24 HOURS TOPICAL PATCH TD SCH (10:14)
[2021-07-07] MEDS: ACETAMINOPHEN 325 MG TABLET (FP) PO PRN (10:15)
[2021-07-07] MEDS: NICOTINE 10 MG CARTRIDGE (INHALER) IH PRN (19:08)
[2021-07-07] MEDS: QUEtiapine FUMARATE 50 MG TABLET PO SCH (21:58)
[2021-07-07] MEDS: MELATONIN 5 MG TABLETS PO SCH (21:58)
[2021-07-07] MEDS: THIAMINE HCL 100 MG TABLET (FP) PO SCH (21:58)
[2021-07-07] MEDS: LIDOCAINE PATCH REMOVAL MC SCH (21:59)
[2021-07-08] MEDS ORDERED: PT OWN MED DRAWER 7, Y5N ONE ×2 (03:12→17:35)
[2021-07-08] MEDS: IBUPROFEN 400 MG TABLET (FP) PO PRN ×2 (07:14→17:36)
[2021-07-08] MEDS: METHOCARBAMOL 750 MG TAB PO PRN ×2 (07:14→17:36)
[2021-07-08] MEDS: LIDOCAINE 5% TOPICAL PATCH TP SCH (10:43)
[2021-07-08] MEDS: PRENATAL VITAMINS W/ FOLIC ACID TABLET (FP) PO SCH (10:43)
[2021-07-08] MEDS: BUPRENORPHINE/NALOXONE 4 MG/1 MG FILM PACKET SL SCH ×2 (10:43→22:14)
[2021-07-08] MEDS: amLODIPine BESYLATE 5 MG TABLET (FP) PO SCH (10:43)
[2021-07-08] MEDS: PANTOPRAZOLE 20 MG TABLET PO SCH ×2 (10:43→22:11)
[2021-07-08] MEDS: NICOTINE 14 MG/24 HOURS TOPICAL PATCH TD SCH (10:44)
[2021-07-08] MEDS: NICOTINE 7 MG/24 HOURS TOPICAL PATCH TD SCH (10:44)
[2021-07-08] MEDS: METHYL SALICYLATE/MENTHOL OINT 30 GM TUBE TP SCH ×2 (10:44→22:15)
[2021-07-08] MEDS: TOLNAFTATE 1% CREAM 15 GM TUBE TP SCH ×2 (14:11→22:12)
[2021-07-08] MEDS: MUPIROCIN 2% TOPICAL OINTMENT 22 GM TUBE TP SCH ×2 (14:44→22:11)
[2021-07-08] MEDS: hydrOXYzine PAMOATE 25 MG CAPSULE (FP) PO PRN (17:36)
[2021-07-08] MEDS: NICOTINE 10 MG CARTRIDGE (INHALER) IH PRN (17:36)
[2021-07-08] MEDS: THIAMINE HCL 100 MG TABLET (FP) PO SCH (22:11)
[2021-07-08] MEDS: QUEtiapine FUMARATE 50 MG TABLET PO SCH (22:11)
[2021-07-08] MEDS: LIDOCAINE PATCH REMOVAL MC SCH (22:12)
[2021-07-08] MEDS: MELATONIN 5 MG TABLETS PO SCH (22:12)
[2021-07-09] MEDS: IBUPROFEN 400 MG TABLET (FP) PO PRN ×2 (05:54→17:53)
[2021-07-09] MEDS: METHOCARBAMOL 750 MG TAB PO PRN ×2 (05:54→17:52)
[2021-07-09] MEDS: NICOTINE 10 MG CARTRIDGE (INHALER) IH PRN ×2 (08:45→14:42)
[2021-07-09] MEDS: amLODIPine BESYLATE 5 MG TABLET (FP) PO SCH (10:21)
[2021-07-09] MEDS: BUPRENORPHINE/NALOXONE 4 MG/1 MG FILM PACKET SL SCH ×2 (10:21→21:30)
[2021-07-09] MEDS: PANTOPRAZOLE 20 MG TABLET PO SCH ×2 (10:21→21:27)
[2021-07-09] MEDS: PRENATAL VITAMINS W/ FOLIC ACID TABLET (FP) PO SCH (10:22)
[2021-07-09] MEDS: METHYL SALICYLATE/MENTHOL OINT 30 GM TUBE TP SCH ×2 (10:23→21:29)
[2021-07-09] MEDS: MUPIROCIN 2% TOPICAL OINTMENT 22 GM TUBE TP SCH ×2 (10:23→21:27)
[2021-07-09] MEDS: NICOTINE 14 MG/24 HOURS TOPICAL PATCH TD SCH (10:24)
[2021-07-09] MEDS: LIDOCAINE 5% TOPICAL PATCH TP SCH (10:24)
[2021-07-09] MEDS: TOLNAFTATE 1% CREAM 15 GM TUBE TP SCH ×2 (10:24→21:28)
[2021-07-09] MEDS ORDERED: PT OWN MED DRAWER 7, Y5N ONE ×2 (17:52→20:17)
[2021-07-09] MEDS: QUEtiapine FUMARATE 50 MG TABLET PO SCH (21:27)
[2021-07-09] MEDS: THIAMINE HCL 100 MG TABLET (FP) PO SCH (21:28)
[2021-07-09] MEDS: MELATONIN 5 MG TABLETS PO SCH (21:29)
[2021-07-09] MEDS: LIDOCAINE PATCH REMOVAL MC SCH (21:29)
[2021-07-10] MEDS ORDERED: BUPRENORPHINE/NALOXONE 4 MG/1 MG FILM PACKET SL ONE (03:40)
[2021-07-10] MEDS: IBUPROFEN 400 MG TABLET (FP) PO PRN ×2 (03:43→11:05)
[2021-07-10] MEDS: METHOCARBAMOL 750 MG TAB PO PRN ×2 (03:44→11:08)
[2021-07-10] MEDS: PRENATAL VITAMINS W/ FOLIC ACID TABLET (FP) PO SCH (11:01)
[2021-07-10] MEDS: METHYL SALICYLATE/MENTHOL OINT 30 GM TUBE TP SCH ×2 (11:02→21:19)
[2021-07-10] MEDS: LIDOCAINE 5% TOPICAL PATCH TP SCH (11:02)
[2021-07-10] MEDS: TOLNAFTATE 1% CREAM 15 GM TUBE TP SCH ×2 (11:02→21:19)
[2021-07-10] MEDS: MUPIROCIN 2% TOPICAL OINTMENT 22 GM TUBE TP SCH ×2 (11:05→21:20)
[2021-07-10] MEDS: NICOTINE 14 MG/24 HOURS TOPICAL PATCH TD SCH (11:05)
[2021-07-10] MEDS: PANTOPRAZOLE 20 MG TABLET PO SCH ×2 (11:05→21:18)
[2021-07-10] MEDS: amLODIPine BESYLATE 5 MG TABLET (FP) PO SCH (11:05)
[2021-07-10] MEDS: NICOTINE 10 MG CARTRIDGE (INHALER) IH PRN ×2 (11:06→21:21)
[2021-07-10] MEDS: BUPRENORPHINE/NALOXONE 4 MG/1 MG FILM PACKET SL SCH ×2 (11:06→21:19)
[2021-07-10] MEDS ORDERED: PT OWN MED DRAWER 7, Y5N ONE (20:25)
[2021-07-10] MEDS: QUEtiapine FUMARATE 50 MG TABLET PO SCH (21:18)
[2021-07-10] MEDS: THIAMINE HCL 100 MG TABLET (FP) PO SCH (21:18)
[2021-07-10] MEDS: MELATONIN 5 MG TABLETS PO SCH (21:20)
[2021-07-10] MEDS: LIDOCAINE PATCH REMOVAL MC SCH (21:20)
[2021-07-11] MEDS: BUPRENORPHINE/NALOXONE 4 MG/1 MG FILM PACKET SL SCH ×3 (06:07→21:43)
[2021-07-11] MEDS: IBUPROFEN 400 MG TABLET (FP) PO PRN ×3 (06:08→21:44)
[2021-07-11] MEDS: METHOCARBAMOL 750 MG TAB PO PRN ×3 (06:09→21:45)
[2021-07-11] MEDS: PRENATAL VITAMINS W/ FOLIC ACID TABLET (FP) PO SCH (10:48)
[2021-07-11] MEDS: NICOTINE 14 MG/24 HOURS TOPICAL PATCH TD SCH (10:49)
[2021-07-11] MEDS: TOLNAFTATE 1% CREAM 15 GM TUBE TP SCH (10:50)
[2021-07-11] MEDS: amLODIPine BESYLATE 5 MG TABLET (FP) PO SCH (10:50)
[2021-07-11] MEDS: LIDOCAINE 5% TOPICAL PATCH TP SCH (10:50)
[2021-07-11] MEDS: METHYL SALICYLATE/MENTHOL OINT 30 GM TUBE TP SCH ×2 (10:50→21:43)
[2021-07-11] MEDS: MUPIROCIN 2% TOPICAL OINTMENT 22 GM TUBE TP SCH ×2 (10:50→21:41)
[2021-07-11] MEDS: PANTOPRAZOLE 20 MG TABLET PO SCH ×2 (10:51→21:42)
[2021-07-11] MEDS: ACETAMINOPHEN 325 MG TABLET (FP) PO PRN (11:11)
[2021-07-11] MEDS: NICOTINE 10 MG CARTRIDGE (INHALER) IH PRN (18:07)
[2021-07-11] MEDS: THIAMINE HCL 100 MG TABLET (FP) PO SCH (21:42)
[2021-07-11] MEDS ORDERED: PT OWN MED DRAWER 7, Y5N ONE (21:42)
[2021-07-11] MEDS: QUEtiapine FUMARATE 50 MG TABLET PO SCH (21:42)
[2021-07-11] MEDS: LIDOCAINE PATCH REMOVAL MC SCH (21:43)
[2021-07-11] MEDS: MELATONIN 5 MG TABLETS PO SCH (21:43)
[2021-07-12] MEDS: TOLNAFTATE 1% CREAM 15 GM TUBE TP SCH ×3 (00:44→22:00)
[2021-07-12] MEDS: IBUPROFEN 400 MG TABLET (FP) PO PRN ×2 (03:24→21:58)
[2021-07-12] MEDS ORDERED: PT OWN MED DRAWER 7, Y5N ONE ×2 (05:31→09:03)
[2021-07-12] MEDS: METHOCARBAMOL 750 MG TAB PO PRN (05:32)
[2021-07-12] MEDS: BUPRENORPHINE/NALOXONE 4 MG/1 MG FILM PACKET SL SCH ×3 (05:57→21:59)
[2021-07-12] MEDS: LIDOCAINE 5% TOPICAL PATCH TP SCH (10:25)
[2021-07-12] MEDS: NICOTINE 14 MG/24 HOURS TOPICAL PATCH TD SCH (10:25)
[2021-07-12] MEDS: METHYL SALICYLATE/MENTHOL OINT 30 GM TUBE TP SCH ×2 (10:25→21:58)
[2021-07-12] MEDS: MUPIROCIN 2% TOPICAL OINTMENT 22 GM TUBE TP SCH ×2 (10:25→21:58)
[2021-07-12] MEDS: amLODIPine BESYLATE 5 MG TABLET (FP) PO SCH (10:26)
[2021-07-12] MEDS: PRENATAL VITAMINS W/ FOLIC ACID TABLET (FP) PO SCH (10:26)
[2021-07-12] MEDS: PANTOPRAZOLE 20 MG TABLET PO SCH ×2 (10:27→21:57)
[2021-07-12] MEDS: ACETAMINOPHEN 325 MG TABLET (FP) PO PRN (10:31)
[2021-07-12] MEDS ORDERED: BENZOCAINE 20 % GEL TUBE MM PRN (12:48)
[2021-07-12] MEDS: MINERAL OIL/PETROLAT/WATER TOPICAL CREAM 113 GM JAR TP SCH (14:00)
[2021-07-12] MEDS: COLLOIDAL OATMEAL 1 BAR EACH TP PRN (14:07)
[2021-07-12] MEDS: ALBUTEROL SO4 HFA INHALER IH PRN (19:26)
[2021-07-12] MEDS: QUEtiapine FUMARATE 50 MG TABLET PO SCH (21:57)
[2021-07-12] MEDS: MELATONIN 5 MG TABLETS PO SCH (21:57)
[2021-07-12] MEDS: LIDOCAINE PATCH REMOVAL MC SCH (21:58)
[2021-07-12] MEDS: THIAMINE HCL 100 MG TABLET (FP) PO SCH (22:00)
[2021-07-13] MEDS: IBUPROFEN 400 MG TABLET (FP) PO PRN ×2 (06:07→21:50)
[2021-07-13] MEDS: BUPRENORPHINE/NALOXONE 4 MG/1 MG FILM PACKET SL SCH ×3 (06:10→21:47)
[2021-07-13] MEDS: PRENATAL VITAMINS W/ FOLIC ACID TABLET (FP) PO SCH (10:27)
[2021-07-13] MEDS: PANTOPRAZOLE 20 MG TABLET PO SCH ×2 (10:28→21:48)
[2021-07-13] MEDS: TOLNAFTATE 1% CREAM 15 GM TUBE TP SCH ×2 (10:28→21:49)
[2021-07-13] MEDS: amLODIPine BESYLATE 5 MG TABLET (FP) PO SCH (10:28)
[2021-07-13] MEDS: NICOTINE 10 MG CARTRIDGE (INHALER) IH PRN (10:29)
[2021-07-13] MEDS: NICOTINE 14 MG/24 HOURS TOPICAL PATCH TD SCH (10:29)
[2021-07-13] MEDS: METHYL SALICYLATE/MENTHOL OINT 30 GM TUBE TP SCH ×2 (10:30→21:49)
[2021-07-13] MEDS: MUPIROCIN 2% TOPICAL OINTMENT 22 GM TUBE TP SCH ×2 (10:31→21:49)
[2021-07-13] MEDS: MINERAL OIL/PETROLAT/WATER TOPICAL CREAM 113 GM JAR TP SCH (10:32)
[2021-07-13] MEDS: LIDOCAINE 5% TOPICAL PATCH TP SCH (10:33)
[2021-07-13] MEDS: MELATONIN 5 MG TABLETS PO SCH (21:48)
[2021-07-13] MEDS: QUEtiapine FUMARATE 50 MG TABLET PO SCH (21:48)
[2021-07-13] MEDS: THIAMINE HCL 100 MG TABLET (FP) PO SCH (21:48)
[2021-07-13] MEDS: LIDOCAINE PATCH REMOVAL MC SCH (21:49)
[2021-07-14] MEDS: IBUPROFEN 400 MG TABLET (FP) PO PRN ×2 (03:13→22:02)
[2021-07-14] MEDS: METHOCARBAMOL 750 MG TAB PO PRN ×2 (03:15→21:58)
[2021-07-14] MEDS: BUPRENORPHINE/NALOXONE 4 MG/1 MG FILM PACKET SL SCH ×3 (06:36→21:58)
[2021-07-14] MEDS: PRENATAL VITAMINS W/ FOLIC ACID TABLET (FP) PO SCH (10:09)
[2021-07-14] MEDS: PANTOPRAZOLE 20 MG TABLET PO SCH ×2 (10:10→21:58)
[2021-07-14] MEDS: NICOTINE 14 MG/24 HOURS TOPICAL PATCH TD SCH (10:10)
[2021-07-14] MEDS: amLODIPine BESYLATE 5 MG TABLET (FP) PO SCH (10:10)
[2021-07-14] MEDS: TOLNAFTATE 1% CREAM 15 GM TUBE TP SCH ×2 (10:11→22:01)
[2021-07-14] MEDS: MINERAL OIL/PETROLAT/WATER TOPICAL CREAM 113 GM JAR TP SCH (10:11)
[2021-07-14] MEDS: METHYL SALICYLATE/MENTHOL OINT 30 GM TUBE TP SCH ×2 (10:11→22:00)
[2021-07-14] MEDS: MUPIROCIN 2% TOPICAL OINTMENT 22 GM TUBE TP SCH ×2 (10:11→21:59)
[2021-07-14] MEDS: LIDOCAINE 5% TOPICAL PATCH TP SCH (10:11)
[2021-07-14] MEDS: QUEtiapine FUMARATE 50 MG TABLET PO SCH (21:58)
[2021-07-14] MEDS: MELATONIN 5 MG TABLETS PO SCH (21:58)
[2021-07-14] MEDS: LIDOCAINE PATCH REMOVAL MC SCH (22:00)
[2021-07-14] MEDS: THIAMINE HCL 100 MG TABLET (FP) PO SCH (22:01)
[2021-07-14] MEDS: NICOTINE 10 MG CARTRIDGE (INHALER) IH PRN (22:51)
[2021-07-15] MEDS: ACETAMINOPHEN 325 MG TABLET (FP) PO PRN (03:53)
[2021-07-15] MEDS: BUPRENORPHINE/NALOXONE 4 MG/1 MG FILM PACKET SL SCH ×3 (06:01→21:27)
[2021-07-15] MEDS: MAG HYDROX/AL HYDROX/SIMETH 30 ML UNIT-DOSE CUP PO PRN (06:04)
[2021-07-15] MEDS: amLODIPine BESYLATE 5 MG TABLET (FP) PO SCH (10:36)
[2021-07-15] MEDS: PRENATAL VITAMINS W/ FOLIC ACID TABLET (FP) PO SCH (10:36)
[2021-07-15] MEDS: PANTOPRAZOLE 20 MG TABLET PO SCH ×2 (10:36→21:27)
[2021-07-15] MEDS: MUPIROCIN 2% TOPICAL OINTMENT 22 GM TUBE TP SCH ×2 (10:37→21:28)
[2021-07-15] MEDS: METHYL SALICYLATE/MENTHOL OINT 30 GM TUBE TP SCH ×2 (10:37→21:28)
[2021-07-15] MEDS: LIDOCAINE 5% TOPICAL PATCH TP SCH (10:38)
[2021-07-15] MEDS: NICOTINE 14 MG/24 HOURS TOPICAL PATCH TD SCH (10:38)
[2021-07-15] MEDS: MINERAL OIL/PETROLAT/WATER TOPICAL CREAM 113 GM JAR TP SCH (10:38)
[2021-07-15] MEDS: TOLNAFTATE 1% CREAM 15 GM TUBE TP SCH ×2 (10:39→22:29)
[2021-07-15] MEDS ORDERED: PT OWN MED DRAWER 7, Y5N ONE (19:37)
[2021-07-15] MEDS: LIDOCAINE PATCH REMOVAL MC SCH (21:24)
[2021-07-15] MEDS: THIAMINE HCL 100 MG TABLET (FP) PO SCH (21:24)
[2021-07-15] MEDS: MELATONIN 5 MG TABLETS PO SCH (21:25)
[2021-07-15] MEDS: QUEtiapine FUMARATE 50 MG TABLET PO SCH (21:27)
[2021-07-15] MEDS: NICOTINE 10 MG CARTRIDGE (INHALER) IH PRN (22:43)
[2021-07-16] MEDS: IBUPROFEN 400 MG TABLET (FP) PO PRN ×3 (05:55→21:59)
[2021-07-16] MEDS: BUPRENORPHINE/NALOXONE 4 MG/1 MG FILM PACKET SL SCH ×3 (05:56→21:21)
[2021-07-16] MEDS: TOLNAFTATE 1% CREAM 15 GM TUBE TP SCH ×2 (10:38→21:21)
[2021-07-16] MEDS: PANTOPRAZOLE 20 MG TABLET PO SCH ×2 (10:38→21:21)
[2021-07-16] MEDS: amLODIPine BESYLATE 5 MG TABLET (FP) PO SCH (10:38)
[2021-07-16] MEDS: PRENATAL VITAMINS W/ FOLIC ACID TABLET (FP) PO SCH (10:39)
[2021-07-16] MEDS: NICOTINE 14 MG/24 HOURS TOPICAL PATCH TD SCH (10:39)
[2021-07-16] MEDS: LIDOCAINE 5% TOPICAL PATCH TP SCH (10:40)
[2021-07-16] MEDS: MUPIROCIN 2% TOPICAL OINTMENT 22 GM TUBE TP SCH ×2 (10:40→21:20)
[2021-07-16] MEDS: MINERAL OIL/PETROLAT/WATER TOPICAL CREAM 113 GM JAR TP SCH (10:40)
[2021-07-16] MEDS: METHYL SALICYLATE/MENTHOL OINT 30 GM TUBE TP SCH ×2 (10:40→21:20)
[2021-07-16] MEDS: NICOTINE 10 MG CARTRIDGE (INHALER) IH PRN (10:41)
[2021-07-16] MEDS: COLLOIDAL OATMEAL 1 BAR EACH TP PRN (10:46)
[2021-07-16] MEDS: METHOCARBAMOL 750 MG TAB PO PRN (14:58)
[2021-07-16] MEDS ORDERED: PT OWN MED DRAWER 7, Y5N ONE ×2 (20:34→21:58)
[2021-07-16] MEDS: LIDOCAINE PATCH REMOVAL MC SCH (21:20)
[2021-07-16] MEDS: QUEtiapine FUMARATE 50 MG TABLET PO SCH (21:21)
[2021-07-16] MEDS: THIAMINE HCL 100 MG TABLET (FP) PO SCH (21:21)
[2021-07-16] MEDS: MELATONIN 5 MG TABLETS PO SCH (21:21)
[2021-07-17] MEDS: BUPRENORPHINE/NALOXONE 4 MG/1 MG FILM PACKET SL SCH ×3 (06:09→22:17)
[2021-07-17] MEDS: IBUPROFEN 400 MG TABLET (FP) PO PRN ×2 (06:10→14:30)
[2021-07-17] MEDS: METHOCARBAMOL 750 MG TAB PO PRN ×2 (06:10→14:31)
[2021-07-17] MEDS: NICOTINE 10 MG CARTRIDGE (INHALER) IH PRN ×2 (06:12→10:38)
[2021-07-17] MEDS ORDERED: PT OWN MED DRAWER 7, Y5N ONE ×4 (08:55→22:49)
[2021-07-17] MEDS: PANTOPRAZOLE 20 MG TABLET PO SCH ×2 (10:35→22:16)
[2021-07-17] MEDS: PRENATAL VITAMINS W/ FOLIC ACID TABLET (FP) PO SCH (10:35)
[2021-07-17] MEDS: MUPIROCIN 2% TOPICAL OINTMENT 22 GM TUBE TP SCH ×2 (10:36→22:13)
[2021-07-17] MEDS: NICOTINE 14 MG/24 HOURS TOPICAL PATCH TD SCH (10:36)
[2021-07-17] MEDS: LIDOCAINE 5% TOPICAL PATCH TP SCH (10:36)
[2021-07-17] MEDS: METHYL SALICYLATE/MENTHOL OINT 30 GM TUBE TP SCH ×2 (10:36→22:13)
[2021-07-17] MEDS: amLODIPine BESYLATE 5 MG TABLET (FP) PO SCH (10:36)
[2021-07-17] MEDS: MINERAL OIL/PETROLAT/WATER TOPICAL CREAM 113 GM JAR TP SCH (10:36)
[2021-07-17] MEDS: TOLNAFTATE 1% CREAM 15 GM TUBE TP SCH ×2 (10:36→22:13)
[2021-07-17] MEDS ORDERED: BUPRENORPHINE/NALOXONE 4 MG/1 MG FILM PACKET SL ONE (14:30)
[2021-07-17] MEDS: MAG HYDROX/AL HYDROX/SIMETH 30 ML UNIT-DOSE CUP PO PRN (20:24)
[2021-07-17] MEDS: LIDOCAINE PATCH REMOVAL MC SCH (22:13)
[2021-07-17] MEDS: THIAMINE HCL 100 MG TABLET (FP) PO SCH (22:16)
[2021-07-17] MEDS: MELATONIN 5 MG TABLETS PO SCH (22:16)
[2021-07-17] MEDS: QUEtiapine FUMARATE 50 MG TABLET PO SCH (22:16)
[2021-07-18] MEDS: IBUPROFEN 400 MG TABLET (FP) PO PRN (05:12)
[2021-07-18] MEDS ORDERED: PT OWN MED DRAWER 7, Y5N ONE ×2 (05:14→09:09)
[2021-07-18] MEDS: METHOCARBAMOL 750 MG TAB PO PRN (05:17)
[2021-07-18] MEDS: BUPRENORPHINE/NALOXONE 4 MG/1 MG FILM PACKET SL SCH (05:17)
[2021-07-18] MEDS: NICOTINE 10 MG CARTRIDGE (INHALER) IH PRN (06:54)
[2021-07-18] MEDS: MAG HYDROX/AL HYDROX/SIMETH 30 ML UNIT-DOSE CUP PO PRN (06:54)
[2021-07-18 07:27] VITALS: BP 123/65; PULSE 85; TEMP 97.2
[2021-07-18] MEDS: PRENATAL VITAMINS W/ FOLIC ACID TABLET (FP) PO SCH (09:10)
[2021-07-18] MEDS: TOLNAFTATE 1% CREAM 15 GM TUBE TP SCH (09:11)
[2021-07-18] MEDS: PANTOPRAZOLE 20 MG TABLET PO SCH (09:11)
[2021-07-18] MEDS: LIDOCAINE 5% TOPICAL PATCH TP SCH (09:11)
[2021-07-18] MEDS: NICOTINE 14 MG/24 HOURS TOPICAL PATCH TD SCH (09:11)
[2021-07-18] MEDS: METHYL SALICYLATE/MENTHOL OINT 30 GM TUBE TP SCH (09:11)
[2021-07-18] MEDS: MUPIROCIN 2% TOPICAL OINTMENT 22 GM TUBE TP SCH (09:11)
[2021-07-18] MEDS: MINERAL OIL/PETROLAT/WATER TOPICAL CREAM 113 GM JAR TP SCH (09:11)
[2021-07-18] MEDS: amLODIPine BESYLATE 5 MG TABLET (FP) PO SCH (09:11)
== END 2021-07-18 10:05 | disposition home or self-care (01) | DRG 772 ==
LOC: YASAS 17:22 → Y5N 17:24
PROVIDERS: ADMIT Allergy & Immunology; ATTEND Allergy & Immunology
PROC: HZ42ZZZ Group Counseling for Substance Abuse Treatment, Cognitive-Behavioral (ICD-10-PCS; principal; 2021-06-27)
DX: F11.20 Opioid dependence, uncomplicated (principal); F10.20 Alcohol dependence, uncomplicated; F14.20 Cocaine dependence, uncomplicated; F12.20 Cannabis dependence, uncomplicated; F17.210 Nicotine dependence, cigarettes, uncomplicated; F31.9 Bipolar disorder, unspecified; F39 Unspecified mood [affective] disorder; G47.00 Insomnia, unspecified; I10 Essential (primary) hypertension; J45.20 Mild intermittent asthma, uncomplicated; K21.9 Gastro-esophageal reflux disease without esophagitis; M17.0 Bilateral primary osteoarthritis of knee; M54.5 Low back pain; G89.29 Other chronic pain; R76.8 Other specified abnormal immunological findings in serum; Z51.81 Encounter for therapeutic drug level monitoring; Z88.8 Allergy status to other drugs, medicaments and biological substances

== ENCOUNTER 2022-07-15 12:17 | Inpatient (IN) | payer OTHER ==
[2022-07-15 14:44] VITALS: BMI 38.5
[2022-07-15] MEDS ORDERED: LOPERAMIDE HCL 2 MG CAPSULE PO PRN (15:39)
[2022-07-15] MEDS ORDERED: MAGNESIUM HYDROX 2400MG/30ML ORAL SUSPENSION 30 ML CUP PO PRN (15:39)
[2022-07-15] MEDS ORDERED: methaDONE HCL 10 MG TABLET (FOR DETOX USE ONLY) PO ONE (15:39)
[2022-07-15] MEDS ORDERED: NICOTINE POLACRILEX 2 MG GUM BUC PRN (15:39)
[2022-07-15] MEDS ORDERED: IBUPROFEN 600 MG TABLET (FP) PO PRN (15:39)
[2022-07-15] MEDS ORDERED: MAGNESIUM CITRATE 300 ML BOTTLE PO PRN (15:39)
[2022-07-15] MEDS ORDERED: BENZOCAINE/MENTHOL (CHLORASEPTIC ) LOZENGE MM PRN (15:39)
[2022-07-15] MEDS ORDERED: ONDANSETRON *ODT* 4 MG TABLET SL PRN (15:39)
[2022-07-15] MEDS ORDERED: BISMUTH SUBSALICYLATE 524 MG/30 ML PO PRN (15:39)
[2022-07-15] MEDS ORDERED: DICYCLOMINE HCL 10 MG CAPSULE PO PRN (15:39)
[2022-07-15] MEDS ORDERED: ACETAMINOPHEN 325 MG TABLET (FP) PO PRN (15:39)
[2022-07-15] MEDS: PRENATAL VITAMINS W/ FOLIC ACID TABLET (FP) PO SCH (16:04)
[2022-07-15] MEDS: ACETAMINOPHEN 325 MG TABLET (FP) PO PRN (16:05)
[2022-07-15] MEDS: hydrOXYzine PAMOATE 25 MG CAPSULE (FP) PO SCH ×2 (17:52→22:11)
[2022-07-15] MEDS: NICOTINE 10 MG CARTRIDGE (INHALER) IH PRN (18:56)
[2022-07-15] MEDS ORDERED: QUEtiapine FUMARATE 50 MG TABLET PO ONE (22:00)
[2022-07-15] MEDS: THIAMINE HCL 100 MG TABLET (FP) PO SCH (22:09)
[2022-07-15] MEDS: MELATONIN 5 MG TABLETS PO SCH (22:11)
[2022-07-16] MEDS: METHOCARBAMOL 500 MG TABLET PO PRN ×2 (06:33→21:58)
[2022-07-16] MEDS: hydrOXYzine PAMOATE 25 MG CAPSULE (FP) PO SCH ×5 (06:33→21:30)
[2022-07-16] MEDS: amLODIPine BESYLATE 10 MG TABLET (FP) PO SCH (10:13)
[2022-07-16] MEDS: PANTOPRAZOLE 40 MG TABLET PO SCH (10:13)
[2022-07-16] MEDS: PRENATAL VITAMINS W/ FOLIC ACID TABLET (FP) PO SCH (10:13)
[2022-07-16] MEDS: GABAPENTIN 300 MG CAPSULE PO SCH (10:13)
[2022-07-16 12:10] LABS: HEMATOCRIT 36.7 % (32.4-45.2); HEMOGLOBIN 12.4 GM/dL (10.7-15.3); MCH 28.8 pg (25.7-33.7); MCHC 33.9 g/dl (32.0-36.0); MEAN CELL VOLUME 84.8 fl (80-96); MEAN PLT VOLUME 9.2 fl (7.5-11.1); PLATELET COUNT 256 10^3/uL (134-434); RBC 4.32 M/mm3 (3.60-5.2); RDW 13.8 % (11.6-15.6); WHITE BLOOD COUNT 9.1 K/mm3 (4.0-10.0)
[2022-07-16 12:32] LABS: ALBUMIN 3.6 g/dl (3.4-5.0); BLOOD UREA NITROGEN 18.5 mg/dL (7-18)
[2022-07-16 12:35] LABS: CREATININE 0.7 mg/dL (0.55-1.3)
[2022-07-16 12:36] LABS: BILIRUBIN,TOTAL 0.4 mg/dL (0.2-1)
[2022-07-16] MEDS: cloNIDine HCL 0.1 MG TABLET PO PRN (13:49)
[2022-07-16] MEDS: ALBUTEROL SO4 HFA INHALER IH PRN ×2 (13:49→21:30)
[2022-07-16] MEDS: MAG HYDROX/AL HYDROX/SIMETH 30 ML UNIT-DOSE CUP PO PRN (14:49)
[2022-07-16] MEDS: NICOTINE 10 MG CARTRIDGE (INHALER) IH PRN (15:42)
[2022-07-16] MEDS: ACETAMINOPHEN 325 MG TABLET (FP) PO PRN (21:25)
[2022-07-16] MEDS: QUEtiapine FUMARATE 50 MG TABLET PO SCH (21:28)
[2022-07-16] MEDS: MELATONIN 5 MG TABLETS PO SCH (21:28)
[2022-07-16] MEDS: THIAMINE HCL 100 MG TABLET (FP) PO SCH (21:28)
[2022-07-16] MEDS: METHYL SALICYLATE/MENTHOL OINT 30 GM TUBE TP SCH (22:55)
[2022-07-17] MEDS: IBUPROFEN 400 MG TABLET (FP) PO PRN (06:33)
[2022-07-17] MEDS: hydrOXYzine PAMOATE 25 MG CAPSULE (FP) PO SCH ×5 (06:33→21:39)
[2022-07-17] MEDS ORDERED: methaDONE HCL 10 MG TABLET (FOR DETOX USE ONLY) PO ONE (10:00)
[2022-07-17] MEDS: PRENATAL VITAMINS W/ FOLIC ACID TABLET (FP) PO SCH (10:07)
[2022-07-17] MEDS: METHYL SALICYLATE/MENTHOL OINT 30 GM TUBE TP SCH ×2 (10:08→21:43)
[2022-07-17] MEDS: PANTOPRAZOLE 40 MG TABLET PO SCH (10:09)
[2022-07-17] MEDS: METHOCARBAMOL 500 MG TABLET PO PRN ×2 (10:09→21:41)
[2022-07-17] MEDS: GABAPENTIN 300 MG CAPSULE PO SCH (10:09)
[2022-07-17] MEDS: amLODIPine BESYLATE 10 MG TABLET (FP) PO SCH (10:09)
[2022-07-17] MEDS: MAG HYDROX/AL HYDROX/SIMETH 30 ML UNIT-DOSE CUP PO PRN (11:37)
[2022-07-17] MEDS: cloNIDine HCL 0.1 MG TABLET PO PRN (12:55)
[2022-07-17] MEDS: NICOTINE 10 MG CARTRIDGE (INHALER) IH PRN (21:35)
[2022-07-17] MEDS: THIAMINE HCL 100 MG TABLET (FP) PO SCH (21:39)
[2022-07-17] MEDS: QUEtiapine FUMARATE 50 MG TABLET PO SCH (21:39)
[2022-07-17] MEDS: MELATONIN 5 MG TABLETS PO SCH (21:41)
[2022-07-17] MEDS: ALBUTEROL SO4 HFA INHALER IH PRN (21:43)
[2022-07-18] MEDS: hydrOXYzine PAMOATE 25 MG CAPSULE (FP) PO SCH ×3 (07:00→15:13)
[2022-07-18] MEDS: IBUPROFEN 400 MG TABLET (FP) PO PRN (07:00)
[2022-07-18] MEDS: METHOCARBAMOL 500 MG TABLET PO PRN ×2 (07:00→15:12)
[2022-07-18] MEDS: amLODIPine BESYLATE 10 MG TABLET (FP) PO SCH (10:07)
[2022-07-18] MEDS: PRENATAL VITAMINS W/ FOLIC ACID TABLET (FP) PO SCH (10:07)
[2022-07-18] MEDS: METHYL SALICYLATE/MENTHOL OINT 30 GM TUBE TP SCH (10:07)
[2022-07-18] MEDS: GABAPENTIN 300 MG CAPSULE PO SCH (10:07)
[2022-07-18] MEDS: PANTOPRAZOLE 40 MG TABLET PO SCH (10:07)
[2022-07-18 13:03] VITALS: PULSE 62
[2022-07-18] MEDS ORDERED: NYSTATIN 500,000 UNITS/5 ML SUSPENSION PO ONE (14:45)
[2022-07-18] MEDS ORDERED: NYSTATIN 500,000 UNITS/5 ML SUSPENSION PO SCH (18:00)
[2022-07-18 18:51] VITALS: BP 98/56; RESP 16; TEMP 97.3
[2022-07-19] MEDS ORDERED: methaDONE HCL 10 MG TABLET (FOR DETOX USE ONLY) PO ONE (10:00)
== END 2022-07-18 18:07 | disposition left against medical advice (07) | DRG 770 ==
LOC: YASAS 12:17 → Y3N 15:33
PROVIDERS: ADMIT Allergy & Immunology; ATTEND Surgery
PROC: HZ2ZZZZ Detoxification Services for Substance Abuse Treatment (ICD-10-PCS; principal; 2022-07-15)
DX: F11.23 Opioid dependence with withdrawal (principal); F17.210 Nicotine dependence, cigarettes, uncomplicated; F19.24 Other psychoactive substance dependence with psychoactive substance-induced mood disorder; F31.9 Bipolar disorder, unspecified; G47.00 Insomnia, unspecified; I10 Essential (primary) hypertension; J45.20 Mild intermittent asthma, uncomplicated; K21.9 Gastro-esophageal reflux disease without esophagitis; M17.0 Bilateral primary osteoarthritis of knee; M54.50 Low back pain, unspecified; G89.29 Other chronic pain; Z88.8 Allergy status to other drugs, medicaments and biological substances
CPT/HCPCS: 36415; 80053; 81025; 85027; 86780; 93005; 93010; C9803-CS; J0735; U0003; U0005

== ENCOUNTER 2023-12-16 17:42 | Inpatient (IN) | payer OTHER ==
[2023-12-16 18:29] VITALS: BMI 45.1
[2023-12-16] MEDS ORDERED: BUPRENORPHINE HCL 150 MCG, BUPRENORPHINE HCL 75 MCG BC ONE (19:17)
[2023-12-16] MEDS ORDERED: IBUPROFEN 400 MG TABLET (FP) PO PRN (19:17)
[2023-12-16] MEDS ORDERED: BENZONATATE 200 MG CAPSULE PO PRN (19:17)
[2023-12-16] MEDS ORDERED: MAG HYDROX/AL HYDROX/SIMETH 30 ML UNIT-DOSE CUP PO PRN (19:17)
[2023-12-16] MEDS ORDERED: DICYCLOMINE HCL 10 MG CAPSULE PO PRN (19:17)
[2023-12-16] MEDS ORDERED: ONDANSETRON *ODT* 4 MG TABLET SL PRN (19:17)
[2023-12-16] MEDS ORDERED: MAGNESIUM HYDROX 2400MG/30ML ORAL SUSPENSION 30 ML CUP PO PRN (19:17)
[2023-12-16] MEDS ORDERED: ACETAMINOPHEN 325 MG TABLET (FP) PO PRN (19:17)
[2023-12-16] MEDS ORDERED: BISMUTH SUBSALICYLATE 524 MG/30 ML PO PRN (19:17)
[2023-12-16] MEDS ORDERED: guaiFENesin 600 MG TABLET.ER (FP) PO PRN (19:17)
[2023-12-16] MEDS ORDERED: NALOXONE HCL (KLOXXADO) 8 MG SPRAY NS PRN (19:17)
[2023-12-16] MEDS ORDERED: BENZOCAINE/MENTHOL (CHLORASEPTIC ) LOZENGE MM PRN (19:17)
[2023-12-16] MEDS ORDERED: LOPERAMIDE HCL 2 MG CAPSULE PO PRN (19:17)
[2023-12-16] MEDS ORDERED: POLYETHYLENE GLYCOL (HEALTHYLAX) 3350 17 GM PACKET PO PRN (19:17)
[2023-12-16] MEDS ORDERED: NALOXONE HCL 0.4 MG/ML VIAL IM PRN (19:17)
[2023-12-16] MEDS ORDERED: BUPRENORPHINE HCL 150 MCG, BUPRENORPHINE HCL 75 MCG BC PRN (19:17)
[2023-12-16] MEDS ORDERED: cloNIDine HCL 0.1 MG TABLET PO ONE (19:45)
[2023-12-16] MEDS: diazePAM 5 MG TABLET PO PRN (20:12)
[2023-12-16] MEDS: THIAMINE HCL 100 MG TABLET (FP) PO SCH (22:10)
[2023-12-16] MEDS: MELATONIN 5 MG TABLETS PO SCH (22:10)
[2023-12-17] MEDS ORDERED: BUPRENORPHINE HCL 150 MCG, BUPRENORPHINE HCL 75 MCG BC PRN
[2023-12-17] MEDS: BUPRENORPHINE HCL 150 MCG, BUPRENORPHINE HCL 75 MCG BC SCH ×2 (05:50→17:26)
[2023-12-17] MEDS: diazePAM 5 MG TABLET PO PRN ×3 (05:52→21:59)
[2023-12-17] MEDS ORDERED: ALBUTEROL SO4 HFA INHALER IH PRN (08:41)
[2023-12-17] MEDS: PRENATAL VITAMINS W/ FOLIC ACID TABLET (FP) PO SCH (10:15)
[2023-12-17] MEDS: QUEtiapine FUMARATE 50 MG TABLET PO SCH (10:15)
[2023-12-17] MEDS: cloNIDine HCL 0.1 MG TABLET PO PRN (10:15)
[2023-12-17] MEDS: GABAPENTIN 300 MG CAPSULE PO SCH (10:15)
[2023-12-17] MEDS: PANTOPRAZOLE 40 MG TABLET PO SCH (10:15)
[2023-12-17] MEDS: amLODIPine BESYLATE 10 MG TABLET (FP) PO SCH (10:15)
[2023-12-17 11:15] LABS: HEMATOCRIT 37.2 % (32.4-45.2); HEMOGLOBIN 12.2 GM/dL (10.7-15.3); MCH 27.3 pg (25.7-33.7); MCHC 32.7 g/dl (32.0-36.0); MEAN CELL VOLUME 83.5 fl (80-96); MEAN PLT VOLUME 9.2 fl (7.5-11.1); PLATELET COUNT 304 10^3/uL (134-434); RBC 4.45 M/mm3 (3.60-5.2); RDW 14.7 % (11.6-15.6); WHITE BLOOD COUNT 10.3 K/mm3 (4.0-10.0)
[2023-12-17 11:34] LABS: CHLORIDE 100 mmol/L (98-107); POTASSIUM 4.3 mmol/L (3.5-5.1); SODIUM 137 mmol/L (136-145)
[2023-12-17 11:37] LABS: BLOOD UREA NITROGEN 17.3 mg/dL (7-18); GLUCOSE,RANDOM 241 mg/dL (74-106)
[2023-12-17 11:38] LABS: CALCIUM 10.4 mg/dL (8.5-10.1)
[2023-12-17 11:39] LABS: ANION GAP 7 mmol/L (4-13); CO2 30 mmol/L (21-32)
[2023-12-17 11:40] LABS: CREATININE 0.9 mg/dL (0.55-1.3); SGOT/AST 21 U/L (15-37); SGPT/ALT 46 U/L (13-61)
[2023-12-17 11:43] LABS: ALK PHOS 183 U/L (45-117); BILIRUBIN,TOTAL 0.2 mg/dL (0.2-1); TOT PROT 8.1 g/dl (6.4-8.2)
[2023-12-17] MEDS: NICOTINE POLACRILEX 2 MG GUM BUC PRN ×2 (13:21→18:13)
[2023-12-17] MEDS: IBUPROFEN 600 MG TABLET (FP) PO PRN (17:28)
[2023-12-17] MEDS ORDERED: INSULIN ASPART SLIDING SCALE (NOVOLOG) 1 VIAL SQ ONE (17:32)
[2023-12-17] MEDS: INSULIN ASPART SLIDING SCALE (NOVOLOG) 1 VIAL SQ SCH (17:34)
[2023-12-17] MEDS: QUEtiapine FUMARATE 100 MG TABLET (FP) PO SCH (21:59)
[2023-12-17] MEDS: THIAMINE HCL 100 MG TABLET (FP) PO SCH (21:59)
[2023-12-17] MEDS: MELATONIN 5 MG TABLETS PO SCH (21:59)
[2023-12-17] MEDS: METHOCARBAMOL 500 MG TABLET PO PRN (21:59)
[2023-12-18] MEDS: BUPRENORPHINE HCL 450 MCG FILM BC SCH ×2 (05:25→17:27)
[2023-12-18] MEDS: IBUPROFEN 600 MG TABLET (FP) PO PRN (05:26)
[2023-12-18] MEDS: diazePAM 5 MG TABLET PO PRN ×2 (05:26→17:27)
[2023-12-18] MEDS: INSULIN ASPART SLIDING SCALE (NOVOLOG) 1 VIAL SQ SCH ×2 (06:14→17:10)
[2023-12-18] MEDS: PRENATAL VITAMINS W/ FOLIC ACID TABLET (FP) PO SCH (10:04)
[2023-12-18] MEDS: GABAPENTIN 300 MG CAPSULE PO SCH (10:06)
[2023-12-18] MEDS: PANTOPRAZOLE 40 MG TABLET PO SCH (10:06)
[2023-12-18] MEDS: amLODIPine BESYLATE 10 MG TABLET (FP) PO SCH (10:07)
[2023-12-18] MEDS: QUEtiapine FUMARATE 50 MG TABLET PO SCH (10:07)
[2023-12-18] MEDS: hydrOXYzine PAMOATE 25 MG CAPSULE (FP) PO PRN (10:07)
[2023-12-18] MEDS: METHOCARBAMOL 500 MG TABLET PO PRN (10:07)
[2023-12-18] MEDS: NICOTINE POLACRILEX 2 MG GUM BUC PRN (10:35)
[2023-12-18] MEDS: QUEtiapine FUMARATE 100 MG TABLET (FP) PO SCH (22:08)
[2023-12-18] MEDS: MELATONIN 5 MG TABLETS PO SCH (22:09)
[2023-12-18] MEDS: THIAMINE HCL 100 MG TABLET (FP) PO SCH (22:09)
[2023-12-19] MEDS: BUPRENORPHINE/NALOXONE 4 MG/1 MG FILM PACKET SL SCH ×2 (05:28→17:25)
[2023-12-19] MEDS: METHOCARBAMOL 500 MG TABLET PO PRN (05:34)
[2023-12-19] MEDS: hydrOXYzine PAMOATE 25 MG CAPSULE (FP) PO PRN (05:34)
[2023-12-19] MEDS: INSULIN ASPART SLIDING SCALE (NOVOLOG) 1 VIAL SQ SCH ×2 (06:33→17:25)
[2023-12-19] MEDS: PRENATAL VITAMINS W/ FOLIC ACID TABLET (FP) PO SCH (09:39)
[2023-12-19] MEDS: QUEtiapine FUMARATE 50 MG TABLET PO SCH (09:39)
[2023-12-19] MEDS: amLODIPine BESYLATE 10 MG TABLET (FP) PO SCH (09:39)
[2023-12-19] MEDS: GABAPENTIN 300 MG CAPSULE PO SCH (09:39)
[2023-12-19] MEDS: PANTOPRAZOLE 40 MG TABLET PO SCH (09:40)
[2023-12-19] MEDS: THIAMINE HCL 100 MG TABLET (FP) PO SCH (22:07)
[2023-12-19] MEDS: cloNIDine HCL 0.1 MG TABLET PO PRN (22:07)
[2023-12-19] MEDS: QUEtiapine FUMARATE 100 MG TABLET (FP) PO SCH (22:07)
[2023-12-19] MEDS: MELATONIN 5 MG TABLETS PO SCH (22:07)
[2023-12-20] MEDS: IBUPROFEN 600 MG TABLET (FP) PO PRN (05:37)
[2023-12-20] MEDS ORDERED: BUPRENORPHINE/NALOXONE 8 MG/2 MG FILM PACKET SL ONE (06:00)
[2023-12-20] MEDS: INSULIN ASPART SLIDING SCALE (NOVOLOG) 1 VIAL SQ SCH (06:18)
[2023-12-20 09:47] VITALS: BP 132/51; PULSE 87; RESP 17; TEMP 97.3
[2023-12-20] MEDS: amLODIPine BESYLATE 10 MG TABLET (FP) PO SCH (09:56)
[2023-12-20] MEDS: PANTOPRAZOLE 40 MG TABLET PO SCH (09:56)
[2023-12-20] MEDS: PRENATAL VITAMINS W/ FOLIC ACID TABLET (FP) PO SCH (09:56)
[2023-12-20] MEDS: QUEtiapine FUMARATE 50 MG TABLET PO SCH (09:57)
[2023-12-20] MEDS: GABAPENTIN 300 MG CAPSULE PO SCH (09:57)
== END 2023-12-20 12:55 | disposition home or self-care (01) | DRG 773 ==
LOC: YASAS 17:42 → Y3N 19:41
PROVIDERS: ADMIT Allergy & Immunology; ATTEND Allergy & Immunology
PROC: HZ2ZZZZ Detoxification Services for Substance Abuse Treatment (ICD-10-PCS; principal; 2023-12-16)
DX: F11.23 Opioid dependence with withdrawal (principal); F12.20 Cannabis dependence, uncomplicated; F31.9 Bipolar disorder, unspecified; F19.24 Other psychoactive substance dependence with psychoactive substance-induced mood disorder; D64.9 Anemia, unspecified; I10 Essential (primary) hypertension; J45.20 Mild intermittent asthma, uncomplicated; K21.9 Gastro-esophageal reflux disease without esophagitis; E11.9 Type 2 diabetes mellitus without complications; Z79.85 Long-term (current) use of injectable non-insulin antidiabetic drugs; M17.0 Bilateral primary osteoarthritis of knee; Z62.810 Personal history of physical and sexual abuse in childhood; Z91.410 Personal history of adult physical and sexual abuse; Z87.891 Personal history of nicotine dependence; Z88.8 Allergy status to other drugs, medicaments and biological substances
CPT/HCPCS: 36415; 80053; 80307; 82962; 85027; 86780; 87635

== ENCOUNTER 2025-06-22 21:24 | Inpatient (IN) | payer OTHER ==
[2025-06-22 21:45] VITALS: BMI 45.6
[2025-06-22] MEDS ORDERED: IBUPROFEN 400 MG TABLET (FP) PO PRN (22:04)
[2025-06-22] MEDS ORDERED: P-EPHED 60MG/TRIPROLIDI 2.5MG TABLET PO PRN (22:04)
[2025-06-22] MEDS ORDERED: BISMUTH SUBSALICYLATE 524 MG/30 ML PO PRN (22:04)
[2025-06-22] MEDS ORDERED: LOPERAMIDE HCL 2 MG CAPSULE PO PRN (22:04)
[2025-06-22] MEDS ORDERED: BENZOCAINE/MENTHOL (CHLORASEPTIC ) LOZENGE MM PRN (22:04)
[2025-06-22] MEDS ORDERED: guaiFENesin 600 MG TABLET.ER (FP) PO PRN (22:04)
[2025-06-22] MEDS ORDERED: NALOXONE (NARCAN) HCL 4 MG/0.1 ML SPRAY NS PRN (22:04)
[2025-06-22] MEDS ORDERED: DICYCLOMINE HCL 10 MG CAPSULE PO PRN (22:04)
[2025-06-22] MEDS ORDERED: ACETAMINOPHEN 325 MG TABLET (FP) PO PRN (22:04)
[2025-06-22] MEDS ORDERED: BENZONATATE 200 MG CAPSULE PO PRN (22:04)
[2025-06-22] MEDS ORDERED: LACTULOSE 20 GM/30 ML UDC (FOR ORAL USE ONLY) PO ONE (23:00)
[2025-06-22] MEDS ORDERED: DOCUSATE SODIUM 100 MG CAPSULE (FP) PO ONE (23:00)
[2025-06-22] MEDS: INSULIN ASPART SLIDING SCALE (NOVOLOG) 1 VIAL SQ SCH (23:11)
[2025-06-23] MEDS: DOCUSATE SODIUM 100 MG CAPSULE (FP) PO ONE (00:19)
[2025-06-23] MEDS: LACTULOSE 20 GM/30 ML UDC (FOR ORAL USE ONLY) PO ONE (00:19)
[2025-06-23] MEDS: ONDANSETRON *ODT* 4 MG TABLET SL PRN (05:59)
[2025-06-23] MEDS: PRENATAL VITAMINS W/ FOLIC ACID TABLET (FP) PO SCH (09:02)
[2025-06-23 09:25] LABS: MCHC 31.7 g/dl (32.2-35.5); MEAN CELL VOLUME 86.0 fl (79.4-94.8); MEAN PLT VOLUME 11.1 fl (9.4-12.3); RDW 13.2 % (12.3-16.6)
[2025-06-23] MEDS: METHOCARBAMOL 500 MG TABLET PO PRN (11:28)
[2025-06-23] MEDS: IBUPROFEN 600 MG TABLET (FP) PO PRN (11:28)
[2025-06-23 12:23] LABS: CO2 27.0 mmol/L (21-32); GLUCOSE,RANDOM 129.0 mg/dL (74-106)
[2025-06-23 12:26] LABS: CREATININE 0.8 mg/dL (0.55-1.3); SGOT/AST 12.0 U/L (15-37); SGPT/ALT 29.0 U/L (13-61)
[2025-06-23 12:29] LABS: ALK PHOS 147.0 U/L (45-117)
[2025-06-23 12:30] LABS: TOT PROT 7.5 g/dl (6.4-8.2)
[2025-06-23] MEDS ORDERED: ALBUTEROL SO4 HFA INHALER IH PRN (16:31)
[2025-06-23] MEDS: PANTOPRAZOLE 20 MG TABLET PO SCH (17:01)
[2025-06-23] MEDS: NICOTINE POLACRILEX 2 MG LOZENGE BC PRN (17:02)
[2025-06-23] MEDS: ATORVASTATIN CA 40 MG TABLET (FP) PO SCH (22:09)
[2025-06-23] MEDS: QUEtiapine FUMARATE 100 MG TABLET (FP) PO SCH (22:10)
[2025-06-23] MEDS: THIAMINE 100 MG TABLET PO SCH (22:10)
[2025-06-23] MEDS: MELATONIN 5 MG TABLETS PO SCH (22:10)
[2025-06-24] MEDS: GABAPENTIN 400 MG CAPSULE PO SCH (10:08)
[2025-06-24] MEDS: MAG HYDROX/AL HYDROX/SIMETH 30 ML UNIT-DOSE CUP PO PRN (21:09)
[2025-06-25] MEDS: MAGNESIUM HYDROX 2400MG/30ML ORAL SUSPENSION 30 ML CUP PO PRN (07:35)
[2025-06-25] MEDS: hydrOXYzine PAMOATE 25 MG CAPSULE (FP) PO PRN (11:28)
[2025-06-25] MEDS: CLOTRIMAZOLE 1% CREAM TP SCH (14:28)
[2025-06-26] MEDS: PANTOPRAZOLE 20 MG TABLET PO SCH (06:27)
[2025-06-26] MEDS: POLYETHYLENE GLYCOL (HEALTHYLAX) 3350 17 GM PACKET PO PRN (15:26)
[2025-06-27 07:14] VITALS: TEMP 97.6
[2025-06-27 09:07] VITALS: BP 132/96; PULSE 89; RESP 18
== END 2025-06-27 09:28 | disposition home or self-care (01) | DRG 773 ==
LOC: YASAS 21:24 → Y6N 22:58
PROVIDERS: ADMIT Neuromusculoskeletal Medicine & OMM; ATTEND Family Medicine Addiction Medicine
PROC: HZ2ZZZZ Detoxification Services for Substance Abuse Treatment (ICD-10-PCS; principal; 2025-06-22)
DX: F11.23 Opioid dependence with withdrawal (principal); F14.20 Cocaine dependence, uncomplicated; F12.20 Cannabis dependence, uncomplicated; F17.210 Nicotine dependence, cigarettes, uncomplicated; F19.282 Other psychoactive substance dependence with psychoactive substance-induced sleep disorder; F31.9 Bipolar disorder, unspecified; E78.5 Hyperlipidemia, unspecified; I10 Essential (primary) hypertension; J45.20 Mild intermittent asthma, uncomplicated; M17.0 Bilateral primary osteoarthritis of knee; M54.41 Lumbago with sciatica, right side; M54.42 Lumbago with sciatica, left side; G89.29 Other chronic pain; E11.9 Type 2 diabetes mellitus without complications; R26.89 Other abnormalities of gait and mobility; Z87.19 Personal history of other diseases of the digestive system; Z62.820 Parent-biological child conflict; Z91.410 Personal history of adult physical and sexual abuse
CPT/HCPCS: 36415; 80053; 80305; 80307; 81025; 82962; 85027; 86780; 93005; 93010; Q0162